=== PATIENT | male | born 1960 | race Caucasian/White ===

== ENCOUNTER 2016-06-23 19:14 | Emergency (ER) | payer BC ==
--- NOTE | 2016-06-23 21:35 | ED ---
Simeon Couch Benjamin, scribed for Benjamin Mata MD on 06/23/16 at 2116 . Complex/Multi-Sys Presentation - HPI Summary HPI Summary: 56yo male c/o bloated stomach and reports having some diarrhea. Pt states that he has gastritis. Also reports WHEELER and sinus congestion. - History Of Current Complaint Chief Complaint: EDGeneral Time Seen by Provider: 06/23/16 21:10 Hx Obtained From: Patient Onset/Duration: Sudden Onset, Lasting Hours, Still Present Timing: Constant Severity Currently: Mild Severity Initially: Mild Associated Signs And Symptoms: Positive: Headache, Diarrhea, Other - bloated stomach - Allergies/Home Medications Allergies/Adverse Reactions: Allergies Allergy/AdvReac Type Severity Reaction Status Date / Time Hydromorphone [From Dilaudid] Allergy Severe Altered Verified 06/23/16 19:22 Mental Status Cephalexin [From Keflex] Allergy Intermediate Hives Verified 06/23/16 19:22 Erythromycin Allergy Intermediate Hives Verified 06/23/16 19:22 Penicillins Allergy Intermediate Hives Verified 06/23/16 19:22 Tetracyclines Allergy Intermediate Hives Verified 06/23/16 19:22 Sumatriptan [From Imitrex] Allergy Unknown Verified 06/23/16 19:22 Reaction Details PMH/Surg Hx/FS Hx/Imm Hx Endocrine/Hematology History: Reports: Hx Thyroid Disease Denies: Hx Anticoagulant Therapy, Hx Diabetes, Other Endocrine/Hematological Disorders Cardiovascular History: Reports: Hx Hypercholesterolemia, Hx Hypertension, Other Cardiovascular Problems/Disorders - ATRIAL FIB Denies: Hx Angina, Hx Coronary Artery Disease, Hx Myocardial Infarction, Hx Pacemaker/ICD, Hx Valvular Heart Disease Respiratory History: Reports: Hx Asthma - exercise induced, Other Respiratory Problems/Disorders - PN X 2 WINTER 2011 Denies: Hx Chronic Obstructive Pulmonary Disease (COPD) GI History: Reports: Hx Gastroesophageal Reflux Disease, Hx Hiatal Hernia Denies: Other GI Disorders History: Reports: Hx Kidney Stones Denies: Hx Renal Disease, Other Problems/Disorders Musculoskeletal History: Reports: Hx Arthritis, Other Musculoskeletal History - DJD Sensory History: Reports: Hx Contacts or Glasses Denies: Hx Hearing Aid, Other Sensory Impairments Opthamlomology History: Reports: Hx Contacts or Glasses Denies: Other Sensory Impairments Neurological History: Reports: Hx Headaches - "sinus headaches" Denies: Hx Dementia, Hx Seizures, Other Neuro Impairments/Disorders Psychiatric History: Denies: Hx Panic Disorder, Hx Substance Abuse, Other Psychiatric Issues/ Disorders - Surgical History Surgery Procedure, Year, and Place: INGUINAL HERNIA REPAIR A CHILD - Immunization History Date of Tetanus Vaccine: up to date Infectious Disease History: No Infectious Disease History: Reports: Hx Hepatitis, Hx Shingles Denies: Hx Clostridium Difficile, Hx Human Immunodeficiency Virus (HIV), Hx Tuberculosis, Traveled Outside the [place] in Last 30 Days - Family History Known Family History: Positive: Hypertension - Social History Occupation: Employed Full-time Alcohol Use: None Alcohol Amount: quit Substance Use Type: Reports: None Substance Use Comment - Amount & Last Used: quit Hx Tobacco Use: Yes Smoking Status (MU): Former Smoker Review of Systems Constitutional: Negative Eyes: Negative ENT: Negative Cardiovascular: Negative Respiratory: Negative Positive: Diarrhea, Other - bloated stomach. Negative: Abdominal Pain Genitourinary: Negative Musculoskeletal: Negative Skin: Negative Positive: Headache Psychological: Normal All Other Systems Reviewed And Are Negative: Yes Physical Exam Triage Information Reviewed: Yes Vital Signs On Initial Exam: Initial Vitals Temp Pulse Resp BP Pulse Ox 98.4 F 66 18 157/74 98 06/23/16 19:22 06/23/16 19:22 06/23/16 19:22 06/23/16 19:22 06/23/16 19:22 Vital Signs Reviewed: Yes Appearance: Positive: No Pain Distress, Obese Skin: Positive: Warm Head/Face: Positive: Normal Head/Face Inspection Eyes: Positive: MARTHA ENT: Positive: Hearing grossly normal Neck: Positive: Supple Respiratory/Lung Sounds: Positive: Clear to Auscultation, Breath Sounds Present Cardiovascular: Positive: RRR Abdomen Description: Positive: Nontender, No Organomegaly, Soft Bowel Sounds: Positive: Present Musculoskeletal: Positive: Strength/ROM Intact Neurological: Positive: Alert, Oriented to Person Place, Time Diagnostics - Vital Signs Vital Signs Temp Pulse Resp BP Pulse Ox 06/23/16 19:22 98.4 F 66 18 157/74 98 - Laboratory Result Diagrams: 06/23/16 22:15 06/23/16 22:15 Lab Statement: Any lab studies that have been ordered have been reviewed, and results considered in the medical decision making process. Re-Evaluation - Re-Evaluation First Eval Change: Improved Complex Multi-Symp Course/Dx - Diagnoses Provider Diagnoses: GERD (gastroesophageal reflux disease), Abdominal pain Discharge - Discharge Plan Condition: Stable Disposition: HOME Patient Education Materials: Gastroesophageal Reflux Disease (ED), Abdominal Pain (ED) Forms: *Work Release Referrals: Akin Kang MD [Primary Care Provider] - The documentation as recorded by the Simeon hobbs Benjamin accurately reflects the service I personally performed and the decisions made by me, Benjamin Mata MD.
[2016-06-23 22:27] LABS: Hematocrit 46 % (42-52); Hemoglobin 15.2 g/dl (14.0-18.0); Mean Corpuscular HGB Conc 33 g/dl (31-36); Mean Corpuscular Hemoglobin 29 pg (27-31); Mean Corpuscular Volume 88 fL (80-94); Mean Platelet Volume 7 um3 (7.4-10.4); Red Blood Count 5.26 10^6/ul (4.0-5.4); Red Cell Distribution Width 14 % (10.5-15); White Blood Count 8.4 10^3/ul (3.5-10.8)
[2016-06-23 22:39] LABS: Albumin 4.3 g/dL (3.2-5.2); BUN/Creatinine Ratio 11.4 (8-20); Calcium 9.6 mg/dL (8.6-10.3); EGFR African American 93.3 (>60); EGFR Non-African American 72.5 (>60); Globulin 2.7 g/dL (2-4); Potassium 4.1 mmol/L (3.5-5.0); Total Bilirubin 0.7 mg/dL (0.2-1.0)
[2016-06-23] MEDS ORDERED: Al Hydrox/Mg Hydrox/Simet LIQ* 30 ML UDC PO ONE (23:11)
[2016-06-23] MEDS ORDERED: Lidocaine 2% VISCOUS* 15 ML UDC PO ONE (23:11)
[2016-06-24 00:09] VITALS: BP 145/76
== END 2016-06-24 00:04 | disposition home or self-care (01) ==
LOC: ED 19:14
DX: K21.9 Gastro-esophageal reflux disease without esophagitis (principal); R10.9 Unspecified abdominal pain
CPT/HCPCS: 36415; 80053; 83690; 85025; 99282; A9270-GY

== ENCOUNTER 2016-06-26 03:13 | Emergency (ER) | payer BC ==
[2016-06-26 04:05] LABS: Albumin 4.3 g/dL (3.2-5.2); BUN/Creatinine Ratio 9.5 (8-20); Calcium 9.6 mg/dL (8.6-10.3); EGFR African American 93.3 (>60); EGFR Non-African American 72.5 (>60); Globulin 2.7 g/dL (2-4); Hematocrit 44 % (42-52); Hemoglobin 14.9 g/dl (14.0-18.0); Magnesium 1.8 mg/dL (1.9-2.7); Mean Corpuscular HGB Conc 34 g/dl (31-36); Mean Corpuscular Hemoglobin 29 pg (27-31); Mean Corpuscular Volume 87 fL (80-94); Mean Platelet Volume 7 um3 (7.4-10.4); Potassium 3.4 mmol/L (3.5-5.0); Red Blood Count 5.08 10^6/ul (4.0-5.4); Red Cell Distribution Width 14 % (10.5-15); Total Bilirubin 0.6 mg/dL (0.2-1.0); White Blood Count 9.7 10^3/ul (3.5-10.8)
--- NOTE | 2016-06-26 04:43 | ED ---
Avila Couch Salem, scribed for Benjamin Mata MD on 06/26/16 at 0346 . Palpitations / Dysrhythmia - HPI Summary HPI Summary: Patient is a 56 y/o male who presents to the ED with palpitations since a few days. He reports presenting to the ED because palpitations were more frequent ( 9 to 10 times) today. He describes them as intermittent, lasting seconds. Pt reports seeing Dr. Dozier today and he believes sx could be related to hiatal hernia. - History of Current Complaint Chief Complaint: EDDysrhythmPalp Time Seen by Provider: 06/26/16 03:36 Hx Obtained From: Patient Onset/Duration: Gradual Onset, Lasting Days Severity Initially: Moderate Severity Currently: Moderate Aggravating: Nothing Alleviating: Nothing - Allergy/Home Medications Allergies/Adverse Reactions: Allergies Allergy/AdvReac Type Severity Reaction Status Date / Time Hydromorphone [From Dilaudid] Allergy Severe Altered Verified 06/26/16 04:01 Mental Status Cephalexin [From Keflex] Allergy Intermediate Hives Verified 06/26/16 04:01 Erythromycin Allergy Intermediate Hives Verified 06/26/16 04:01 Penicillins Allergy Intermediate Hives Verified 06/26/16 04:01 Tetracyclines Allergy Intermediate Hives Verified 06/26/16 04:01 Sumatriptan [From Imitrex] Allergy Unknown Verified 06/26/16 04:01 Reaction Details PMH/Surg Hx/FS Hx/Imm Hx Endocrine/Hematology History: Reports: Hx Thyroid Disease Denies: Hx Anticoagulant Therapy, Hx Diabetes, Other Endocrine/Hematological Disorders Cardiovascular History: Reports: Hx Hypercholesterolemia, Hx Hypertension, Other Cardiovascular Problems/Disorders - ATRIAL FIB Denies: Hx Angina, Hx Coronary Artery Disease, Hx Myocardial Infarction, Hx Pacemaker/ICD, Hx Valvular Heart Disease Respiratory History: Reports: Hx Asthma - exercise induced, Other Respiratory Problems/Disorders - PN X 2 WINTER 2011 Denies: Hx Chronic Obstructive Pulmonary Disease (COPD) GI History: Reports: Hx Gastroesophageal Reflux Disease, Hx Hiatal Hernia Denies: Other GI Disorders History: Reports: Hx Kidney Stones Denies: Hx Renal Disease, Other Problems/Disorders Musculoskeletal History: Reports: Hx Arthritis, Other Musculoskeletal History - DJD Sensory History: Reports: Hx Contacts or Glasses Denies: Hx Hearing Aid, Other Sensory Impairments Opthamlomology History: Reports: Hx Contacts or Glasses Denies: Other Sensory Impairments Neurological History: Reports: Hx Headaches - "sinus headaches" Denies: Hx Dementia, Hx Seizures, Other Neuro Impairments/Disorders Psychiatric History: Denies: Hx Panic Disorder, Hx Substance Abuse, Other Psychiatric Issues/ Disorders - Surgical History Surgery Procedure, Year, and Place: INGUINAL HERNIA REPAIR A CHILD - Immunization History Date of Tetanus Vaccine: up to date Date of Influenza Vaccine: utd Infectious Disease History: No Infectious Disease History: Reports: Hx Hepatitis, Hx Shingles Denies: Hx Clostridium Difficile, Hx Human Immunodeficiency Virus (HIV), Hx Tuberculosis, Traveled Outside the [place] in Last 30 Days - Family History Known Family History: Positive: Hypertension - Social History Alcohol Use: None Alcohol Amount: quit 86 Substance Use Type: Reports: None Substance Use Comment - Amount & Last Used: quit Hx Tobacco Use: Yes Smoking Status (MU): Former Smoker Review of Systems Negative: Fever Positive: Palpitations All Other Systems Reviewed And Are Negative: Yes Physical Exam Triage Information Reviewed: Yes Vital Signs On Initial Exam: Initial Vitals Temp Pulse Resp BP Pulse Ox 99.2 F 61 16 175/77 98 06/26/16 03:22 06/26/16 03:22 06/26/16 03:22 06/26/16 03:22 06/26/16 03:22 Vital Signs Reviewed: Yes Appearance: Positive: No Pain Distress, Obese Skin: Positive: Warm Head/Face: Positive: Normal Head/Face Inspection Eyes: Positive: MARTHA ENT: Positive: Hearing grossly normal Neck: Positive: Supple, Nontender Respiratory/Lung Sounds: Positive: Breath Sounds Present Cardiovascular: Positive: RRR Abdomen Description: Positive: Nontender, Soft Bowel Sounds: Positive: Present Musculoskeletal: Positive: Strength/ROM Intact Neurological: Positive: Sensory/Motor Intact, Alert, Oriented to Person Place, Time - [place] Coma Scale Coma Scale Total: 15 Diagnostics - Vital Signs Vital Signs Temp Pulse Resp BP Pulse Ox 06/26/16 03:22 99.2 F 61 16 175/77 98 - Laboratory Lab Results: Lab Results 06/26/16 06/26/16 Range/Units 03:35 03:35 WBC 9.7 (3.5-10.8) 10^3/ul RBC 5.08 (4.0-5.4) 10^6/ul Hgb 14.9 (14.0-18.0) g/dl Hct 44 (42-52) % MCV 87 (80-94) fL MCH 29 (27-31) pg MCHC 34 (31-36) g/dl RDW 14 (10.5-15) % Plt Count 206 (150-450) 10^3/ul MPV 7 L (7.4-10.4) um3 Neut % (Auto) 52.5 (38-83) % Lymph % (Auto) 37.3 (25-47) % [place] % (Auto) 8.3 (1-9) % Eos % (Auto) 1.4 (0-6) % Baso % (Auto) 0.5 (0-2) % Absolute Neuts (auto) 5.1 (1.5-7.7) 10^3/ul Absolute Lymphs (auto) 3.6 (1.0-4.8) 10^3/ul Absolute Monos (auto) 0.8 (0-0.8) 10^3/ul Absolute Eos (auto) 0.1 (0-0.6) 10^3/ul Absolute Basos (auto) 0.1 (0-0.2) 10^3/ul Absolute Nucleated RBC 0.01 10^3/ul Nucleated RBC % 0.1 Sodium 137 (133-145) mmol/L Potassium 3.4 L (3.5-5.0) mmol/L Chloride 102 (101-111) mmol/L Carbon Dioxide 25 (22-32) mmol/L Anion Gap 10 (2-11) mmol/L BUN 10 (6-24) mg/dL Creatinine 1.05 (0.67-1.17) mg/dL Est GFR ( Amer) 93.3 (>60) Est GFR (Non-Af Amer) 72.5 (>60) BUN/Creatinine Ratio 9.5 (8-20) Glucose 108 H (70-100) mg/dL Calcium 9.6 (8.6-10.3) mg/dL Magnesium 1.8 L (1.9-2.7) mg/dL Total Bilirubin 0.60 (0.2-1.0) mg/dL AST 25 (13-39) U/L ALT 32 (7-52) U/L Alkaline Phosphatase 46 (34-104) U/L Troponin I 0.00 (<0.04) ng/mL Total Protein 7.0 (6.4-8.9) g/dL Albumin 4.3 (3.2-5.2) g/dL Globulin 2.7 (2-4) g/dL Albumin/Globulin Ratio 1.6 (1-3) Result Diagrams: 06/26/16 03:35 06/26/16 03:35 Lab Statement: Any lab studies that have been ordered have been reviewed, and results considered in the medical decision making process. - EKG 0321 EKG Interpretation: Sinus rhythm @ 60 bpm. Re-Evaluation - Re-Evaluation First Eval Change: Improved - no significant ectopy noted Course/Dx - Diagnoses Provider Diagnoses: Palpitations Discharge - Discharge Plan Condition: Stable Disposition: HOME Patient Education Materials: Palpitations (ED) Referrals: Akin Kang MD [Primary Care Provider] - Rob Dozier MD [Medical Doctor] - Additional Instructions: Follow up with Dr. Dozier (Payroll Lead). The documentation as recorded by the Avila hobbs Salem accurately reflects the service I personally performed and the decisions made by , Benjamin Mata MD.
[2016-06-26 05:44] VITALS: BP 140/70
== END 2016-06-26 05:50 | disposition home or self-care (01) ==
LOC: ED 03:13
DX: R00.2 Palpitations (principal)
CPT/HCPCS: 36415; 80053; 83735; 84484; 85025; 93005; 99282

== ENCOUNTER 2016-07-21 13:40 | Emergency (ER) | payer BC ==
--- NOTE | 2016-07-21 15:28 | RAD ---
CLINICAL HISTORY: Left flank pain COMPARISON: June 04, 2013 TECHNIQUE: Multiple contiguous axial CT scans were obtained of the abdomen and pelvis, without intravenous contrast enhancement. Coronal and sagittal multiplanar reformations are submitted for review. Oral contrast was not administered. FINDINGS: The study is limited by the lack of intravenous contrast. This limits evaluation of the solid organs and vasculature. Evaluation is also technically limited secondary patient body habitus. LUNG BASES: The lung bases are clear. LIVER: The liver is diffusely low in attenuation compared to the spleen. There are no focal hepatic parenchymal masses. BILE DUCTS: There is no intrahepatic or extrahepatic biliary dilatation. GALLBLADDER: The gallbladder is normal, without pericholecystic inflammatory change. PANCREAS: The pancreas is normal, without mass or ductal dilatation. SPLEEN: Normal in size and appearance. UPPER GI TRACT: Evaluation of the gastrointestinal tract is limited by incomplete gastric distention. The upper GI tract is unremarkable. SMALL BOWEL AND MESENTERY: The small bowel is normal in contour, course, and caliber. There is no obstruction or dilatation. COLON: There is scattered diverticula of the descending colon. There is no appreciable pericolonic inflammatory change ADRENALS: Normal bilaterally. KIDNEYS: The kidneys are normal in shape, size, contour, and axis. There is no hydronephrosis or nephrolithiasis. BLADDER: The bladder is smooth in contour. PELVIC ORGANS: The prostate gland is normal. The seminal vesicles are symmetric. AORTA: The aorta is normal. IVC: Unremarkable LYMPH NODES: There is no lymphadenopathy by size criteria. ABDOMINAL WALL: There is no evidence for abdominal wall hernia. BONES AND SOFT TISSUES: There are mild diffuse degenerative changes. OTHER: None IMPRESSION: NO HYDRONEPHROSIS OR NEPHROLITHIASIS. SCATTERED DIVERTICULA OF THE DISTAL COLON. FATTY LIVER
[2016-07-21 15:57] LABS: Hematocrit 45 % (42-52); Hemoglobin 14.8 g/dl (14.0-18.0); Mean Corpuscular HGB Conc 33 g/dl (31-36); Mean Corpuscular Hemoglobin 29 pg (27-31); Mean Corpuscular Volume 88 fL (80-94); Mean Platelet Volume 7 um3 (7.4-10.4); Red Blood Count 5.13 10^6/ul (4.0-5.4); Red Cell Distribution Width 14 % (10.5-15); White Blood Count 7.3 10^3/ul (3.5-10.8)
[2016-07-21 16:15] LABS: Albumin 4.3 g/dL (3.2-5.2); C Reactive Protein 1.79 mg/L (< 5.00); Calcium 9.6 mg/dL (8.6-10.3); EGFR African American 98.7 (>60); EGFR Non-African American 76.7 (>60); Globulin 2.5 g/dL (2-4); Potassium 4.4 mmol/L (3.5-5.0); Total Bilirubin 0.7 mg/dL (0.2-1.0); Total Protein 6.8 g/dL (6.4-8.9)
[2016-07-21 17:24] LABS: Urine Bilirubin Negative (Negative); Urine Glucose Negative (Negative); Urine Nitrite Negative (Negative)
[2016-07-21 18:06] VITALS: BP 121/51
--- NOTE | 2016-07-21 19:44 | ED ---
Familia Couch Matthew, scribed for Lucio Church MD on 07/21/16 at 1437 . Abdominal Pain/Male - HPI Summary HPI Summary: A 56 y/o male presents to the ED with intermittent lower left sided abdominal pain since a couple of weeks ago. He states that he had a stomach virus a couple of weeks ago and hasn't felt right since that time. The pain started as cramping and has developed into a dull/ache/pressure. Associated symptoms include fatigue, frequently changing stools from diarrhea to constipation, abdominal bloating, and nausea. The patient denies vomiting. He has been eating , but did not eat today. The patient has not recently taken Abx. The patient received prednisone in March for a CT, because of a possible reaction to contrast dye. No Hx of diverticulosis. - History of Current Complaint Chief Complaint: EDAbdPain Stated Complaint: ABD PAIN Time Seen by Provider: 07/21/16 14:10 Hx Obtained From: Patient Onset/Duration: Gradual Onset, Lasting Weeks, Still Present Timing: Intermittent Severity Currently: Moderate Pain Intensity: 7 Pain Scale Used: 0-10 Numeric Location: Diffuse - lower abdominal Radiates: No Character: Dull, Cramping, Other: - aching Associated Signs And Symptoms: Positive: Constipation, Decreased Appetite - today only, Nausea, Diarrhea, Other - Fatigue. Negative: Vomiting - Allergies/Home Medications Allergies/Adverse Reactions: Allergies Allergy/AdvReac Type Severity Reaction Status Date / Time Hydromorphone [From Dilaudid] Allergy Severe Altered Verified 06/26/16 04:01 Mental Status Cephalexin [From Keflex] Allergy Intermediate Hives Verified 06/26/16 04:01 Erythromycin Allergy Intermediate Hives Verified 06/26/16 04:01 Penicillins Allergy Intermediate Hives Verified 06/26/16 04:01 Tetracyclines Allergy Intermediate Hives Verified 06/26/16 04:01 Sumatriptan [From Imitrex] Allergy Unknown Verified 06/26/16 04:01 Reaction Details Home Medications: Home Medications Epleronone (NF) [Inspra (NF)] 50 mg PO DAILY 07/21/16 [History Confirmed ] Levothyroxine TAB* [Synthroid TAB*] 200 mcg PO DAILY 07/21/16 [History Confirmed 07/21/16] Metoprolol Succinate XL TAB* [Toprol XL TAB*] 25 mg PO DAILY 07/21/16 [History Confirmed 07/21/16] Terbinafine HCl [Lamisil] 250 mg PO DAILY 07/21/16 [History Confirmed 07/21/16] amLODIPine TAB* [Norvasc 5 mg TAB*] 2.5 mg PO DAILY 07/21/16 [History Confirmed 07/21/16] PMH/Surg Hx/FS Hx/Imm Hx Endocrine/Hematology History: Reports: Hx Thyroid Disease Denies: Hx Anticoagulant Therapy, Hx Diabetes, Other Endocrine/Hematological Disorders Cardiovascular History: Reports: Hx Hypercholesterolemia, Hx Hypertension, Other Cardiovascular Problems/Disorders - ATRIAL FIB Denies: Hx Angina, Hx Coronary Artery Disease, Hx Myocardial Infarction, Hx Pacemaker/ICD, Hx Valvular Heart Disease Respiratory History: Reports: Hx Asthma - exercise induced, Other Respiratory Problems/Disorders - PN X 2 WINTER 2011 Denies: Hx Chronic Obstructive Pulmonary Disease (COPD) GI History: Reports: Hx Gastroesophageal Reflux Disease, Hx Hiatal Hernia Denies: Other GI Disorders History: Reports: Hx Kidney Stones Denies: Hx Renal Disease, Other Problems/Disorders Musculoskeletal History: Reports: Hx Arthritis, Other Musculoskeletal History - DJD Sensory History: Reports: Hx Contacts or Glasses Denies: Hx Hearing Aid, Other Sensory Impairments Opthamlomology History: Reports: Hx Contacts or Glasses Denies: Other Sensory Impairments Neurological History: Reports: Hx Headaches - "sinus headaches" Denies: Hx Dementia, Hx Seizures, Other Neuro Impairments/Disorders Psychiatric History: Denies: Hx Panic Disorder, Hx Substance Abuse, Other Psychiatric Issues/ Disorders - Surgical History Surgery Procedure, Year, and Place: INGUINAL HERNIA REPAIR A CHILD - Immunization History Date of Tetanus Vaccine: up to date Date of Influenza Vaccine: utd Infectious Disease History: Yes Infectious Disease History: Reports: Hx Hepatitis, Hx Shingles Denies: Hx Clostridium Difficile, Hx Human Immunodeficiency Virus (HIV), Hx Tuberculosis, Traveled Outside the [place] in Last 30 Days - Family History Known Family History: Positive: Hypertension - Social History Alcohol Use: None Alcohol Amount: quit Substance Use Type: Reports: None Substance Use Comment - Amount & Last Used: quit Hx Tobacco Use: Yes Smoking Status (MU): Former Smoker Review of Systems Positive: Fatigue, Other - decreased appetite only starting today Eyes: Negative ENT: Negative Cardiovascular: Negative Gastrointestinal: Other - constipation Positive: Abdominal Pain, Diarrhea, Nausea Genitourinary: Negative Musculoskeletal: Negative Skin: Negative Neurological: Negative Psychological: Normal All Other Systems Reviewed And Are Negative: Yes Physical Exam Triage Information Reviewed: Yes Vital Signs On Initial Exam: Initial Vitals Temp Pulse Resp BP Pulse Ox 97.8 F 66 18 165/71 99 07/21/16 13:41 07/21/16 13:41 07/21/16 13:41 07/21/16 13:41 07/21/16 13:41 Vital Signs Reviewed: Yes Appearance: Positive: Obese - morbidly Skin: Positive: Warm, Dry Head/Face: Positive: Normal Head/Face Inspection Eyes: Positive: EOMI, MARTHA ENT: Positive: Normal ENT inspection Neck: Positive: Supple, Nontender Respiratory/Lung Sounds: Positive: Clear to Auscultation, Breath Sounds Present Cardiovascular: Positive: RRR Abdomen Description: Positive: Nontender, Soft Bowel Sounds: Positive: Present Musculoskeletal: Positive: Normal Neurological: Positive: Alert, Oriented to Person Place, Time Psychiatric: Positive: Affect/Mood Appropriate Diagnostics - Vital Signs Vital Signs Temp Pulse Resp BP Pulse Ox 07/21/16 13:41 97.8 F 66 18 165/71 99 - Laboratory Lab Results: Lab Results 07/21/16 07/21/16 07/21/16 Range/Units 15:42 15:42 15:42 WBC 7.3 (3.5-10.8) 10^3/ul RBC 5.13 (4.0-5.4) 10^6/ul Hgb 14.8 (14.0-18.0) g/dl Hct 45 (42-52) % MCV 88 (80-94) fL MCH 29 (27-31) pg MCHC 33 (31-36) g/dl RDW 14 (10.5-15) % Plt Count 193 (150-450) 10^3/ul MPV 7 L (7.4-10.4) um3 Neut % (Auto) 65.2 (38-83) % Lymph % (Auto) 24.9 L (25-47) % [place] % (Auto) 7.7 (1-9) % Eos % (Auto) 1.1 (0-6) % Baso % (Auto) 1.1 (0-2) % Absolute Neuts (auto) 4.8 (1.5-7.7) 10^3/ul Absolute Lymphs (auto) 1.8 (1.0-4.8) 10^3/ul Absolute Monos (auto) 0.6 (0-0.8) 10^3/ul Absolute Eos (auto) 0.1 (0-0.6) 10^3/ul Absolute Basos (auto) 0.1 (0-0.2) 10^3/ul Absolute Nucleated RBC 0 10^3/ul Nucleated RBC % 0 Sodium 136 (133-145) mmol/L Potassium 4.4 (3.5-5.0) mmol/L Chloride 103 (101-111) mmol/L Carbon Dioxide 25 (22-32) mmol/L Anion Gap 8 (2-11) mmol/L BUN 9 (6-24) mg/dL Creatinine 1.00 (0.67-1.17) mg/dL Est GFR ( Amer) 98.7 (>60) Est GFR (Non-Af Amer) 76.7 (>60) BUN/Creatinine Ratio 9.0 (8-20) Glucose 114 H (70-100) mg/dL Lactic Acid 1.8 (0.5-2.0) mmol/L Calcium 9.6 (8.6-10.3) mg/dL Total Bilirubin 0.70 (0.2-1.0) mg/dL AST 31 (13-39) U/L ALT 39 (7-52) U/L Alkaline Phosphatase 45 (34-104) U/L C-Reactive Protein 1.79 (< 5.00) mg/L Total Protein 6.8 (6.4-8.9) g/dL Albumin 4.3 (3.2-5.2) g/dL Globulin 2.5 (2-4) g/dL Albumin/Globulin Ratio 1.7 (1-3) Lipase 30 (11.0-82.0) U/L Urine Color Urine Appearance Urine pH (5-9) Ur Specific [place] (1.010-1.030) Urine Protein (Negative) Urine Ketones (Negative) Urine Blood (Negative) Urine Nitrate (Negative) Urine Bilirubin (Negative) Urine Urobilinogen (Negative) Ur Leukocyte Esterase (Negative) Urine Glucose (Negative) 07/21/16 Range/Units 17:10 WBC (3.5-10.8) 10^3/ul RBC (4.0-5.4) 10^6/ul Hgb (14.0-18.0) g/dl Hct (42-52) % MCV (80-94) fL MCH (27-31) pg MCHC (31-36) g/dl RDW (10.5-15) % Plt Count (150-450) 10^3/ul MPV (7.4-10.4) um3 Neut % (Auto) (38-83) % Lymph % (Auto) (25-47) % [place] % (Auto) (1-9) % Eos % (Auto) (0-6) % Baso % (Auto) (0-2) % Absolute Neuts (auto) (1.5-7.7) 10^3/ul Absolute Lymphs (auto) (1.0-4.8) 10^3/ul Absolute Monos (auto) (0-0.8) 10^3/ul Absolute Eos (auto) (0-0.6) 10^3/ul Absolute Basos (auto) (0-0.2) 10^3/ul Absolute Nucleated RBC 10^3/ul Nucleated RBC % Sodium (133-145) mmol/L Potassium (3.5-5.0) mmol/L Chloride (101-111) mmol/L Carbon Dioxide (22-32) mmol/L Anion Gap (2-11) mmol/L BUN (6-24) mg/dL Creatinine (0.67-1.17) mg/dL Est GFR ( Amer) (>60) Est GFR (Non-Af Amer) (>60) BUN/Creatinine Ratio (8-20) Glucose (70-100) mg/dL Lactic Acid (0.5-2.0) mmol/L Calcium (8.6-10.3) mg/dL Total Bilirubin (0.2-1.0) mg/dL AST (13-39) U/L ALT (7-52) U/L Alkaline Phosphatase (34-104) U/L C-Reactive Protein (< 5.00) mg/L Total Protein (6.4-8.9) g/dL Albumin (3.2-5.2) g/dL Globulin (2-4) g/dL Albumin/Globulin Ratio (1-3) Lipase (11.0-82.0) U/L Urine Color Yellow Urine Appearance Clear Urine pH 6.0 (5-9) Ur Specific [place] 1.011 (1.010-1.030) Urine Protein Negative (Negative) Urine Ketones Negative (Negative) Urine Blood Negative (Negative) Urine Nitrate Negative (Negative) Urine Bilirubin Negative (Negative) Urine Urobilinogen Negative (Negative) Ur Leukocyte Esterase Negative (Negative) Urine Glucose Negative (Negative) Result Diagrams: 07/21/16 15:42 07/21/16 15:42 Lab Statement: Any lab studies that have been ordered have been reviewed, and results considered in the medical decision making process. - CT A/P CT CT Interpretation: Positive (See Comments) - IMPRESSION: NO HYDRONEPHROSIS OR NEPHROLITHIASIS. SCATTERED DIVERTICULA OF THE DISTAL COLON. FATTY LIVER CT Interpretation Completed By: Radiologist Abdominal Pain Fem Course/Dx - Course Course Of Treatment: Mr. Gomez was evaluated for possible diverticulitis which was negative as was the rest of his W/U. He was D/C'd with symptomatic treatment after rehydration. - Diagnoses Provider Diagnoses: Gastroenteritis Discharge - Discharge Plan Condition: Stable Disposition: HOME Patient Education Materials: Abdominal Pain (ED) Referrals: Akin Kang MD [Primary Care Provider] - Additional Instructions: FOLLOW UP WITH YOUR PRIMARY CARE PHYSICIAN. The documentation as recorded by the Familia hobbs Matthew accurately reflects the service I personally performed and the decisions made by , Lucio Church MD.
== END 2016-07-21 18:04 | disposition home or self-care (01) ==
LOC: ED 13:40
DX: K52.9 Noninfective gastroenteritis and colitis, unspecified (principal); R10.32 Left lower quadrant pain; R19.7 Diarrhea, unspecified; R53.83 Other fatigue
CPT/HCPCS: 36415; 74176; 80053; 81003; 83605; 83630; 83690; 85025; 86140; 87045; 87046; 87493; 87899; 99283

== ENCOUNTER 2016-11-15 02:21 | Emergency (ER) | payer BC ==
[2016-11-15] MEDS ORDERED: Ketorolac INJ* 60 MG/2 ML VIAL IM ONE (02:54)
--- NOTE | 2016-11-15 03:36 | ED ---
Ale Couch Edward, scribed for Benjamin Mata MD on 11/15/16 at 0226 . Upper Extremity Pain - HPI Summary HPI Summary: 56 y/o male presents to ED c/o L shoulder pain since the patient woke up yesterday. Per triage, the pt feels like he has a pinched nerve from his neck to his L shoulder blade. The pain is aggravated by lifting his L arm. Associated sx: numbness/tingling in L fingers. PMHx pinched nerves. - History of Current Complaint Stated Complaint: LEFT SHOULDER PAIN Hx Obtained From: Patient Onset/Duration: Started Days Ago - Yesterday when he woke up Timing: Lasting Days - 1 Pain Location: Shoulder Aggravating Factor(s): Lifting - L arm Associated Signs & Symptoms: Positive: Numbness/Tingling - L fingers - Allergies/Home Medications Allergies/Adverse Reactions: Allergies Allergy/AdvReac Type Severity Reaction Status Date / Time Hydromorphone [From Dilaudid] Allergy Severe Altered Verified 11/15/16 02:41 Mental Status Cephalexin [From Keflex] Allergy Intermediate Hives Verified 11/15/16 02:41 Erythromycin Allergy Intermediate Hives Verified 11/15/16 02:41 Penicillins Allergy Intermediate Hives Verified 11/15/16 02:41 Tetracyclines Allergy Intermediate Hives Verified 11/15/16 02:41 Sumatriptan [From Imitrex] Allergy Unknown Verified 11/15/16 02:41 Reaction Details Home Medications: Home Medications Cholecalciferol [Vitamin D] 2,000 unit PO DAILY 11/15/16 [History Confirmed ] PMH/Surg Hx/FS Hx/Imm Hx Previously Healthy: No Endocrine/Hematology History: Reports: Hx Thyroid Disease Denies: Hx Anticoagulant Therapy, Hx Diabetes, Other Endocrine/Hematological Disorders Cardiovascular History: Reports: Hx Hypercholesterolemia, Hx Hypertension, Other Cardiovascular Problems/Disorders - ATRIAL FIB Denies: Hx Angina, Hx Coronary Artery Disease, Hx Myocardial Infarction, Hx Pacemaker/ICD, Hx Valvular Heart Disease Respiratory History: Reports: Hx Asthma - exercise induced, Other Respiratory Problems/Disorders - PN X 2 WINTER 2011 Denies: Hx Chronic Obstructive Pulmonary Disease (COPD) GI History: Reports: Hx Gastroesophageal Reflux Disease, Hx Hiatal Hernia Denies: Other GI Disorders History: Reports: Hx Kidney Stones Denies: Hx Renal Disease, Other Problems/Disorders Musculoskeletal History: Reports: Hx Arthritis, Other Musculoskeletal History - DJD Sensory History: Reports: Hx Contacts or Glasses Denies: Hx Hearing Aid, Other Sensory Impairments Opthamlomology History: Reports: Hx Contacts or Glasses Denies: Other Sensory Impairments Neurological History: Reports: Hx Headaches - "sinus headaches" Denies: Hx Dementia, Hx Seizures, Other Neuro Impairments/Disorders Psychiatric History: Denies: Hx Panic Disorder, Hx Substance Abuse, Other Psychiatric Issues/ Disorders - Surgical History Surgery Procedure, Year, and Place: INGUINAL HERNIA REPAIR A CHILD - Immunization History Date of Tetanus Vaccine: up to date Date of Influenza Vaccine: utd Infectious Disease History: Reports: Hx Hepatitis, Hx Shingles Denies: Hx Clostridium Difficile, Hx Human Immunodeficiency Virus (HIV), Hx Tuberculosis - Family History Known Family History: Positive: Hypertension - Social History Alcohol Use: None Alcohol Amount: quit 86' Hx Substance Use: Yes Substance Use Type: Reports: None Substance Use Comment - Amount & Last Used: quit 86' Hx Tobacco Use: Yes Smoking Status (MU): Former Smoker Review of Systems Constitutional: Negative Eyes: Negative ENT: Negative Cardiovascular: Negative Respiratory: Negative Gastrointestinal: Negative Genitourinary: Negative Positive: Arthralgia - L shoulder pain, Other - Numbness/tingling in L fingers Skin: Negative Neurological: Negative Psychological: Normal All Other Systems Reviewed And Are Negative: Yes Physical Exam Triage Information Reviewed: Yes Vital Signs On Initial Exam: Initial Vitals Temp Pulse Resp BP Pulse Ox 98.1 F 65 18 169/75 97 11/15/16 02:26 11/15/16 02:26 11/15/16 02:26 11/15/16 02:26 11/15/16 02:26 Vital Signs Reviewed: Yes Appearance: Positive: Well-Appearing, Pain Distress - mild discomfort Skin: Positive: Warm Head/Face: Positive: Normal Head/Face Inspection Eyes: Positive: MARTHA ENT: Positive: Hearing grossly normal Neck: Positive: Supple Respiratory/Lung Sounds: Positive: Breath Sounds Present Cardiovascular: Positive: RRR Abdomen Description: Positive: Nontender, Soft Musculoskeletal: Positive: Other - mild lt trapezius tenderness, mild pain with elevation at shoulder Neurological: Positive: Alert, Oriented to Person Place, Time Psychiatric: Positive: Affect/Mood Appropriate Diagnostics - Vital Signs Vital Signs Temp Pulse Resp BP Pulse Ox 11/15/16 02:37 98.1 F 65 18 169/75 97 11/15/16 02:26 98.1 F 65 18 169/75 97 - Laboratory Lab Statement: Any lab studies that have been ordered have been reviewed, and results considered in the medical decision making process. Re-Evaluation - Re-Evaluation First Eval Change: Improved Course/Dx - Course Assessment/Plan: 56 y/o male presents to ED c/o L shoulder pain since the patient woke up yesterday. Per triage, the pt feels like he has a pinched nerve from his neck to his L shoulder blade. The pain is aggravated by lifting his L arm. Associated sx: numbness/tingling in L fingers. PMHx pinched nerves. D/C with muscle spasms. Given Flexeril and Motrin. - Diagnoses Provider Diagnoses: Muscle spasm Discharge - Discharge Plan Condition: Improved Disposition: HOME Prescriptions: Cyclobenzaprine TAB* [Flexeril 10 MG TAB*] 10 mg PO TID #20 tab Ibuprofen TAB* [Motrin TAB* 800 MG] 800 mg PO TID #30 tab Patient Education Materials: Muscle Spasm (ED) Forms: *Work Release Referrals: Akin Kang MD [Primary Care Provider] - 3 Days (Please follow-up in 2-3 days.) The documentation as recorded by the Ale hobbs Edward accurately reflects the service I personally performed and the decisions made by Esperanza caruso David, MD.
[2016-11-15 03:47] VITALS: BP 154/84
== END 2016-11-15 03:45 | disposition home or self-care (01) ==
LOC: ED 02:21
DX: M62.838 Other muscle spasm (principal); M25.512 Pain in left shoulder; E07.9 Disorder of thyroid, unspecified; I10 Essential (primary) hypertension; I48.91 Unspecified atrial fibrillation; E78.00 Pure hypercholesterolemia, unspecified; J45.990 Exercise induced bronchospasm; K21.9 Gastro-esophageal reflux disease without esophagitis; Z87.442 Personal history of urinary calculi; Z88.5 Allergy status to narcotic agent; Z88.1 Allergy status to other antibiotic agents; Z88.0 Allergy status to penicillin; Z87.891 Personal history of nicotine dependence
CPT/HCPCS: 99282; J1885

== ENCOUNTER 2017-02-06 21:25 | Emergency (ER) | payer BC ==
[2017-02-06] MEDS ORDERED: NS 0.9% 1000 ML* 1,000 ML IV ONE (23:00)
[2017-02-06 23:40] LABS: Hematocrit 45 % (42-52); Hemoglobin 15.4 g/dl (14.0-18.0); Mean Corpuscular HGB Conc 34 g/dl (31-36); Mean Corpuscular Hemoglobin 30 pg (27-31); Mean Corpuscular Volume 89 fL (80-94); Mean Platelet Volume 6 um3 (7.4-10.4); Red Blood Count 5.11 10^6/ul (4.0-5.4); Red Cell Distribution Width 14 % (10.5-15); White Blood Count 9.2 10^3/ul (3.5-10.8)
[2017-02-06 23:53] LABS: Albumin 4.4 g/dL (3.2-5.2); BUN/Creatinine Ratio 12.4 (8-20); C Reactive Protein 2.26 mg/L (< 5.00); Calcium 9.6 mg/dL (8.6-10.3); EGFR Non-African American 72.3 (>60); Globulin 2.8 g/dL (2-4); Magnesium 1.9 mg/dL (1.9-2.7); Potassium 4.4 mmol/L (3.5-5.0); Total Bilirubin 0.8 mg/dL (0.2-1.0); Total Protein 7.2 g/dL (6.4-8.9)
[2017-02-07 00:10] LABS: TSH (Thyroid Stimulating Horm) 1.7 mcIU/mL (0.34-5.60)
[2017-02-07 00:57] LABS: Urine Bilirubin Negative (Negative); Urine Glucose Negative (Negative); Urine Nitrite Negative (Negative)
[2017-02-07] MEDS ORDERED: Iohexol 350* (CONTRAST) 500 ML MDV IV ONE (01:20)
[2017-02-07 03:15] VITALS: BP 150/58
--- NOTE | 2017-02-07 04:00 | ED ---
Uri Couch Nikita, scribed for Sterling Montez MD on 02/06/17 at 2253 . Complex/Multi-Sys Presentation - HPI Summary HPI Summary: This patient is a 57 year old M presenting to ED with a chief complaint of increased fatigue since 1 month ago (started working overnights). The patient rates the pain 0/10 in severity. Symptoms aggravated by nothing. Symptoms alleviated by nothing. Patient reports exhaustion, intermittent palpitations in 50s (not unusual, coming off metoprolol), rash at R armpit, bloating, sinus congestion, decreased sleep, SOB (when congested), decreased appetite, dehydration, muscle pain, swelling in ankles when working, and loose stool. Patient denies ear pain, sore throat, rhinorrhea, neck pain, abdominal pain, nausea, bowel symptoms, urinary symptoms, depression, and anxiety. - History Of Current Complaint Chief Complaint: EDGeneral Time Seen by Provider: 02/06/17 22:37 Hx Obtained From: Patient Onset/Duration: Sudden Onset, Lasting Weeks - 1 month ago, Still Present Timing: Constant Severity Currently: None Aggravating Factor(s): nothing Alleviating Factor(s): nothing Associated Signs And Symptoms: Positive: Other - Patient reports exhaustion, intermittent palpitations in 50s (not unusual, coming off metoprolol), rash at R armpit, bloating, sinus congestion, decreased sleep, SOB (when congested), decreased appetite, dehydration, muscle pain, swelling in ankles when working, and loose stool. Patient denies ear pain, sore throat, rhinorrhea, neck pain, abdominal pain, nausea, bowel symptoms, urinary symptoms, depression, and anxiety. - Allergies/Home Medications Allergies/Adverse Reactions: Allergies Allergy/AdvReac Type Severity Reaction Status Date / Time Hydromorphone [From Dilaudid] Allergy Severe Altered Verified 11/15/16 02:41 Mental Status Cephalexin [From Keflex] Allergy Intermediate Hives Verified 11/15/16 02:41 Erythromycin Allergy Intermediate Hives Verified 11/15/16 02:41 Penicillins Allergy Intermediate Hives Verified 11/15/16 02:41 Tetracyclines Allergy Intermediate Hives Verified 11/15/16 02:41 Sumatriptan [From Imitrex] Allergy Unknown Verified 11/15/16 02:41 Reaction Details PMH/Surg Hx/FS Hx/Imm Hx Endocrine/Hematology History: Reports: Hx Thyroid Disease Denies: Hx Anticoagulant Therapy, Hx Diabetes, Other Endocrine/Hematological Disorders Cardiovascular History: Reports: Hx Hypercholesterolemia, Hx Hypertension, Other Cardiovascular Problems/Disorders - ATRIAL FIB Denies: Hx Angina, Hx Coronary Artery Disease, Hx Myocardial Infarction, Hx Pacemaker/ICD, Hx Valvular Heart Disease Respiratory History: Reports: Hx Asthma - exercise induced, Other Respiratory Problems/Disorders - PN X 2 WINTER 2011 Denies: Hx Chronic Obstructive Pulmonary Disease (COPD) GI History: Reports: Hx Gastroesophageal Reflux Disease, Hx Hiatal Hernia Denies: Other GI Disorders History: Reports: Hx Kidney Stones Denies: Hx Renal Disease, Other Problems/Disorders Musculoskeletal History: Reports: Hx Arthritis, Other Musculoskeletal History - DJD Sensory History: Reports: Hx Contacts or Glasses Denies: Hx Hearing Aid, Other Sensory Impairments Opthamlomology History: Reports: Hx Contacts or Glasses Denies: Other Sensory Impairments Neurological History: Reports: Hx Headaches - "sinus headaches" Denies: Hx Dementia, Hx Seizures, Other Neuro Impairments/Disorders Psychiatric History: Denies: Hx Panic Disorder, Hx Substance Abuse, Other Psychiatric Issues/ Disorders - Surgical History Surgery Procedure, Year, and Place: INGUINAL HERNIA REPAIR A CHILD - Immunization History Date of Tetanus Vaccine: up to date Date of Influenza Vaccine: utd Infectious Disease History: No Infectious Disease History: Reports: Hx Hepatitis, Hx Shingles Denies: Hx Clostridium Difficile, Hx Human Immunodeficiency Virus (HIV), Hx Tuberculosis, Traveled Outside the [place] in Last 30 Days - Family History Known Family History: Positive: Hypertension - Social History Alcohol Use: None Alcohol Amount: quit ' Hx Substance Use: Yes Substance Use Type: Reports: None Substance Use Comment - Amount & Last Used: quit 84 Hx Tobacco Use: Yes Smoking Status (MU): Former Smoker Review of Systems Positive: Fatigue Positive: Other - sinus congestion, dehydration; denies ear pain, rhinorrhea. Negative: Sore Throat Positive: Palpitations - intermittent Positive: Shortness Of Breath Positive: Other - bloating, decreased appetite, loose stool; denies bowel symptoms. Negative: Abdominal Pain, Nausea Positive: no symptoms reported Positive: Other - muscle pain, swelling in ankles when working; denies neck pain Positive: Rash - R armpit Neurological: Other - decreased sleep Negative: Anxious, Depressed All Other Systems Reviewed And Are Negative: Yes Physical Exam Triage Information Reviewed: Yes Vital Signs On Initial Exam: Initial Vitals Temp Pulse Resp BP Pulse Ox 98 F 67 20 159/82 96 02/06/17 21:28 02/06/17 21:28 02/06/17 21:28 02/06/17 21:28 02/06/17 21:28 Vital Signs Reviewed: Yes Appearance: Positive: Well-Appearing, No Pain Distress Skin: Positive: Warm, Dry, Other - 2.5 cm by 1.5 cm erythematous rash on right axilla Head/Face: Positive: Normal Head/Face Inspection Eyes: Positive: EOMI, MARTHA ENT: Positive: Normal ENT inspection Neck: Positive: Supple, Nontender Respiratory/Lung Sounds: Positive: Clear to Auscultation, Breath Sounds Present Cardiovascular: Positive: RRR Abdomen Description: Positive: Nontender, Soft Bowel Sounds: Positive: Present Musculoskeletal: Positive: Normal, Strength/ROM Intact Neurological: Positive: Normal, Sensory/Motor Intact, Alert, Oriented to Person Place, Time, CN Intact II-III Psychiatric: Positive: Affect/Mood Appropriate - Nicol Coma Scale Coma Scale Total: 15 Diagnostics - Vital Signs Vital Signs Temp Pulse Resp BP Pulse Ox 02/06/17 21:38 65 14 138/63 98 02/06/17 21:36 11 02/06/17 21:28 98 F 67 20 159/82 96 - Laboratory Lab Results: Lab Results 02/06/17 02/06/17 02/06/17 Range/Units 23:30 23:30 23:30 WBC (3.5-10.8) 10^3/ul RBC (4.0-5.4) 10^6/ul Hgb (14.0-18.0) g/dl Hct (42-52) % MCV (80-94) fL MCH (27-31) pg MCHC (31-36) g/dl RDW (10.5-15) % Plt Count (150-450) 10^3/ul MPV (7.4-10.4) um3 Neut % (Auto) (38-83) % Lymph % (Auto) (25-47) % [place] % (Auto) (1-9) % Eos % (Auto) (0-6) % Baso % (Auto) (0-2) % Absolute Neuts (auto) (1.5-7.7) 10^3/ul Absolute Lymphs (auto) (1.0-4.8) 10^3/ul Absolute Monos (auto) (0-0.8) 10^3/ul Absolute Eos (auto) (0-0.6) 10^3/ul Absolute Basos (auto) (0-0.2) 10^3/ul Absolute Nucleated RBC 10^3/ul Nucleated RBC % INR (Anticoag Therapy) 0.94 (0.89-1.11) APTT 33.6 (26.0-36.3) seconds Sodium 139 (133-145) mmol/L Potassium 4.4 (3.5-5.0) mmol/L Chloride 104 (101-111) mmol/L Carbon Dioxide 27 (22-32) mmol/L Anion Gap 8 (2-11) mmol/L BUN 13 (6-24) mg/dL Creatinine 1.05 (0.67-1.17) mg/dL Est GFR ( Amer) 93.0 (>60) Est GFR (Non-Af Amer) 72.3 (>60) BUN/Creatinine Ratio 12.4 (8-20) Glucose 105 H (70-100) mg/dL Lactic Acid (0.5-2.0) mmol/L Calcium 9.6 (8.6-10.3) mg/dL Magnesium 1.9 (1.9-2.7) mg/dL Total Bilirubin 0.80 (0.2-1.0) mg/dL AST 35 (13-39) U/L ALT 39 (7-52) U/L Alkaline Phosphatase 44 (34-104) U/L Total Creatine Kinase 113 (10-223) U/L CK-MB (CK-2) 2.3 (0.6-6.3) ng/mL Troponin I 0.00 (<0.04) ng/mL C-Reactive Protein 2.26 (< 5.00) mg/L B-Natriuretic Peptide 22 ( - 100) pg/mL Total Protein 7.2 (6.4-8.9) g/dL Albumin 4.4 (3.2-5.2) g/dL Globulin 2.8 (2-4) g/dL Albumin/Globulin Ratio 1.6 (1-3) Lipase 32 (11.0-82.0) U/L TSH 1.70 (0.34-5.60) mcIU/mL Urine Color Urine Appearance Urine pH (5-9) Ur Specific [place] (1.010-1.030) Urine Protein (Negative) Urine Ketones (Negative) Urine Blood (Negative) Urine Nitrate (Negative) Urine Bilirubin (Negative) Urine Urobilinogen (Negative) Ur Leukocyte Esterase (Negative) Urine Glucose (Negative) 02/06/17 02/06/17 02/07/17 Range/Units 23:30 23:30 00:35 WBC 9.2 (3.5-10.8) 10^3/ul RBC 5.11 (4.0-5.4) 10^6/ul Hgb 15.4 (14.0-18.0) g/dl Hct 45 (42-52) % MCV 89 (80-94) fL MCH 30 (27-31) pg MCHC 34 (31-36) g/dl RDW 14 (10.5-15) % Plt Count 209 (150-450) 10^3/ul MPV 6 L (7.4-10.4) um3 Neut % (Auto) 72.6 (38-83) % Lymph % (Auto) 19.3 L (25-47) % [place] % (Auto) 6.5 (1-9) % Eos % (Auto) 1.1 (0-6) % Baso % (Auto) 0.5 (0-2) % Absolute Neuts (auto) 6.7 (1.5-7.7) 10^3/ul Absolute Lymphs (auto) 1.8 (1.0-4.8) 10^3/ul Absolute Monos (auto) 0.6 (0-0.8) 10^3/ul Absolute Eos (auto) 0.1 (0-0.6) 10^3/ul Absolute Basos (auto) 0 (0-0.2) 10^3/ul Absolute Nucleated RBC 0 10^3/ul Nucleated RBC % 0 INR (Anticoag Therapy) (0.89-1.11) APTT (26.0-36.3) seconds Sodium (133-145) mmol/L Potassium (3.5-5.0) mmol/L Chloride (101-111) mmol/L Carbon Dioxide (22-32) mmol/L Anion Gap (2-11) mmol/L BUN (6-24) mg/dL Creatinine (0.67-1.17) mg/dL Est GFR ( Amer) (>60) Est GFR (Non-Af Amer) (>60) BUN/Creatinine Ratio (8-20) Glucose (70-100) mg/dL Lactic Acid 3.0 H* (0.5-2.0) mmol/L Calcium (8.6-10.3) mg/dL Magnesium (1.9-2.7) mg/dL Total Bilirubin (0.2-1.0) mg/dL AST (13-39) U/L ALT (7-52) U/L Alkaline Phosphatase (34-104) U/L Total Creatine Kinase (10-223) U/L CK-MB (CK-2) (0.6-6.3) ng/mL Troponin I (<0.04) ng/mL C-Reactive Protein (< 5.00) mg/L B-Natriuretic Peptide ( - 100) pg/mL Total Protein (6.4-8.9) g/dL Albumin (3.2-5.2) g/dL Globulin (2-4) g/dL Albumin/Globulin Ratio (1-3) Lipase (11.0-82.0) U/L TSH (0.34-5.60) mcIU/mL Urine Color Yellow Urine Appearance Clear Urine pH 7.0 (5-9) Ur Specific [place] 1.018 (1.010-1.030) Urine Protein Negative (Negative) Urine Ketones Negative (Negative) Urine Blood Negative (Negative) Urine Nitrate Negative (Negative) Urine Bilirubin Negative (Negative) Urine Urobilinogen Negative (Negative) Ur Leukocyte Esterase Negative (Negative) Urine Glucose Negative (Negative) Result Diagrams: 02/06/17 23:30 02/06/17 23:30 Lab Statement: Any lab studies that have been ordered have been reviewed, and results considered in the medical decision making process. - Radiology CXR Radiology Interpretation Completed By: ED Physician - Opacity along the right border of the aorta and heart of unknown significance. Otherwise insignificant. - CT Chest/Abd/Pel CT Interpretation Completed By: Radiologist - No acute findings. ED physician has reviewed this radiology report and agrees. - EKG 2332 Cardiac Rate: Bradycardia - 55 bpm EKG Rhythm: Sinus Bradycardia ST Segment: Normal Ectopy: None Re-Evaluation - Re-Evaluation First Eval Re-Evaluation Time: 00:40 Comment: Discussed with pt about results. Complex Multi-Symp Course/Dx Assessment/Plan: This patient is a 57 year old M presenting to ED with a chief complaint of increased fatigue since 1 month ago (started working overnights). The patient rates the pain 0/10 in severity. Symptoms aggravated by nothing. Symptoms alleviated by nothing. Patient reports exhaustion, intermittent palpitations in 50s (not unusual, coming off metoprolol), rash at R armpit, bloating, sinus congestion, decreased sleep, SOB (when congested), decreased appetite, dehydration, muscle pain, swelling in ankles when working, and loose stool. Patient denies ear pain, sore throat, rhinorrhea, neck pain, abdominal pain, nausea, bowel symptoms, urinary symptoms, depression, and anxiety. Chest/ Abd/Pel CT reveals no acute findings. ED physician has reviewed this radiology report and agrees. CXR reveals opacity along the right border of the aorta and heart of unknown significance. Otherwise insignificant. EKG reveals sinus bradycardia at 55 bpm, normal ST, and no ectopy. In the ED course, pt was given fluids. Medications reviewed. BP noted and advised to follow up with PCP. Allergies noted. RESULTS DISCUSSED WITH PATIENT. HE HAS F/U ON 02/08/[address] DOZIER, CARDIOLOGY. RX KETOCONAZOLE AND MUPIROCIN FOR RT AXILLARY RASH. F/ U PMD AND CARDIOLOGY; RETURN IF WORSE. - Diagnoses Provider Diagnoses: Weakness, Fatigue Discharge - Discharge Plan Condition: Stable Disposition: HOME Prescriptions: Ketoconazole 2 % CREAM (NF) [Nizoral 2% CREAM (NF)] 1 applic TOPICAL DAILY #1 tube Mupirocin 2% OINT* [Bactroban 2 % Oint*] 1 applic TOPICAL BID #1 tube Patient Education Materials: Acute Rash (ED), Weakness (ED) Referrals: Akin Kang MD [Primary Care Provider] - Rob Dozier MD [Medical Doctor] - Additional Instructions: FOLLOW UP WITH CARDIOLOGY, DR DOZIER, ON 02/08/17 SCHEDULED AND YOUR PRIMARY CARE DOCTOR. RETURN TO THE EMERGENCY DEPARTMENT FOR ANY WORSENING OF YOUR CONDITION OR QUESTIONS OR CONCERNS. The documentation as recorded by the Uri hobbs Nikita accurately reflects the service I personally performed and the decisions made by me, Sterling Montez MD.
--- NOTE | 2017-02-07 08:03 | RAD ---
INDICATION: Fatigue COMPARISON: Similar examination dated April 19, 2016 TECHNIQUE: Single AP portable view of the chest was obtained. FINDINGS: Image quality is compromised due to the relative inferiority of a portable chest x-ray. The heart and mediastinum exhibit normal size and contour. The lungs are grossly clear. There is no evidence of a large pleural effusion. Visualized bones are normal for the patient's age. IMPRESSION: No radiographic evidence for acute cardiopulmonary abnormality on this portable chest x-ray.
--- NOTE | 2017-02-07 08:36 | RAD ---
INDICATION: Palpitations and weakness. COMPARISON: CT abdomen pelvis dated July 21, 2016 TECHNIQUE: Multidetector CT images of the chest, abdomen and pelvis were obtained from the lung apices to the ischial tuberosities without intravenous contrast . CHEST: The lungs are clear. There are no large pleural effusions. There is no mediastinal or hilar lymphadenopathy. The heart and major vascular structures are grossly normal in appearance. ABDOMEN \T\ PELVIS: The liver is homogenously hypodense relative to the spleen. The spleen, pancreas and adrenal glands are grossly normal in appearance. The gallbladder is normal. The kidneys are normal in appearance without focal mass, calcification or signs of hydronephrosis. Evaluation of the gastrointestinal tract is limited without oral contrast. The appendix is either extremely diminutive (coronal image 65) or not visualized. Either way there are no acute inflammatory changes at the base of the cecum characteristic of acute appendicitis. The small and large bowel are not distended. There is no gross retroperitoneal or mesenteric lymphadenopathy. There is coarse atherosclerotic calcification of the prostate gland. There is a small left-sided fat-containing inguinal hernia. The thoracic and abdominal aorta is normal and size and morphology. Mild calcified atherosclerosis at the arch of the aorta and just above the bifurcation are noted. Multilevel degenerative changes of the thoracolumbar spine include loss of intervertebral disc height and anterior marginal osteophyte formation along much of the mid level and lower thoracic spine. IMPRESSION: 1. No pathologic aneurysmal dilatation of the aorta. 2. Homogenously hypoattenuating liver is most likely hepatic steatosis or another chronic infiltrative disease. 3. Additional chronic and degenerative changes described in the body the report.
== END 2017-02-07 04:15 | disposition home or self-care (01) ==
LOC: ED 21:25
DX: R53.1 Weakness (principal); R53.83 Other fatigue; R00.2 Palpitations; R21 Rash and other nonspecific skin eruption; R14.0 Abdominal distension (gaseous); R09.81 Nasal congestion; R06.02 Shortness of breath; E86.0 Dehydration; M79.1 Myalgia; R19.7 Diarrhea, unspecified; R60.0 Localized edema; E07.9 Disorder of thyroid, unspecified; I10 Essential (primary) hypertension; E78.00 Pure hypercholesterolemia, unspecified; I48.91 Unspecified atrial fibrillation; J45.990 Exercise induced bronchospasm; K21.9 Gastro-esophageal reflux disease without esophagitis; Z87.442 Personal history of urinary calculi; Z88.1 Allergy status to other antibiotic agents; Z88.5 Allergy status to narcotic agent; Z88.0 Allergy status to penicillin; Z87.891 Personal history of nicotine dependence
CPT/HCPCS: 36415; 71010; 71250; 74176; 80053; 81003; 82550; 82553; 83605; 83690; 83735; 83880; 84443; 84484; 85025; 85610; 85730; 86140; 93005; 96360; 96361; 99283

== ENCOUNTER 2017-02-20 01:13 | Emergency (ER) | payer BC ==
[2017-02-20] MEDS ORDERED: Ketorolac INJ* 60 MG/2 ML VIAL IM ONE (02:13)
--- NOTE | 2017-02-20 02:20 | ED ---
Throat Pain/Nasal Congestion - HPI Summary HPI Summary: 57M presents with dental pain at 23. he is seeing dentist on Tuesday for this. he is on clindamycin and oxy with tyenlol for his pain. He is here for pain relief. He denies any fever. He denies any chest pain or SOB. no trismus. states has abscess into jaw that they are going to manage on tuesday. he states swelling is getting better but pain is severe. - History of Current Complaint Chief Complaint: EDDentalPain Time Seen by Provider: 02/20/17 01:41 - Allergies/Home Medications Allergies/Adverse Reactions: Allergies Allergy/AdvReac Type Severity Reaction Status Date / Time Hydromorphone [From Dilaudid] Allergy Severe Altered Verified 11/15/16 02:41 Mental Status Cephalexin [From Keflex] Allergy Intermediate Hives Verified 11/15/16 02:41 Erythromycin Allergy Intermediate Hives Verified 11/15/16 02:41 Penicillins Allergy Intermediate Hives Verified 11/15/16 02:41 Tetracyclines Allergy Intermediate Hives Verified 11/15/16 02:41 Sumatriptan [From Imitrex] Allergy Unknown Verified 11/15/16 02:41 Reaction Details PMH/Surg Hx/FS Hx/Imm Hx Endocrine/Hematology History: Reports: Hx Thyroid Disease Denies: Hx Anticoagulant Therapy, Hx Diabetes, Other Endocrine/Hematological Disorders Cardiovascular History: Reports: Hx Hypercholesterolemia, Hx Hypertension, Other Cardiovascular Problems/Disorders - ATRIAL FIB Denies: Hx Angina, Hx Coronary Artery Disease, Hx Myocardial Infarction, Hx Pacemaker/ICD, Hx Valvular Heart Disease Respiratory History: Reports: Hx Asthma - exercise induced, Other Respiratory Problems/Disorders - PN X 2 WINTER 2011 Denies: Hx Chronic Obstructive Pulmonary Disease (COPD) GI History: Reports: Hx Gastroesophageal Reflux Disease, Hx Hiatal Hernia Denies: Other GI Disorders History: Reports: Hx Kidney Stones Denies: Hx Renal Disease, Other Problems/Disorders Musculoskeletal History: Reports: Hx Arthritis, Other Musculoskeletal History - DJD Sensory History: Reports: Hx Contacts or Glasses Denies: Hx Hearing Aid, Other Sensory Impairments Opthamlomology History: Reports: Hx Contacts or Glasses Denies: Other Sensory Impairments Neurological History: Reports: Hx Headaches - "sinus headaches" Denies: Hx Dementia, Hx Seizures, Other Neuro Impairments/Disorders Psychiatric History: Denies: Hx Panic Disorder, Hx Substance Abuse, Other Psychiatric Issues/ Disorders - Surgical History Surgery Procedure, Year, and Place: INGUINAL HERNIA REPAIR A CHILD - Immunization History Date of Tetanus Vaccine: up to date Date of Influenza Vaccine: utd Infectious Disease History: No Infectious Disease History: Reports: Hx Hepatitis, Hx Shingles Denies: Hx Clostridium Difficile, Hx Human Immunodeficiency Virus (HIV), Hx Tuberculosis, Traveled Outside the [place] in Last 30 Days - Family History Known Family History: Positive: Hypertension - Social History Alcohol Use: None Alcohol Amount: quit Hx Substance Use: Yes Substance Use Type: Reports: None Substance Use Comment - Amount & Last Used: quit 86 Hx Tobacco Use: Yes Smoking Status (MU): Former Smoker Review of Systems Negative: Fever Positive: Dental Pain Negative: Chest Pain Negative: Shortness Of Breath All Other Systems Reviewed And Are Negative: Yes Physical Exam Triage Information Reviewed: Yes Vital Signs On Initial Exam: Initial Vitals Temp Pulse Resp BP Pulse Ox 98.5 F 70 18 142/76 94 02/20/17 01:19 02/20/17 01:19 02/20/17 01:19 02/20/17 01:19 02/20/17 01:19 Vital Signs Reviewed: Yes Appearance: Positive: Pain Distress Skin: Positive: Warm, Dry Head/Face: Positive: Normal Head/Face Inspection Eyes: Positive: Normal, EOMI, MARTHA, Conjunctiva Clear ENT: Positive: Normal ENT inspection, Pharynx normal, TMs normal Dental: Positive: Percussion Tenderness @ - 25, Gross Decay/Caries @ - 25, Abscess @ - edema but no drainable abscess, Other - no submandibular tenderness. Negative: Dental Fracture @ Neck: Positive: Supple, Nontender, No Lymphadenopathy Respiratory/Lung Sounds: Positive: Clear to Auscultation, Breath Sounds Present Cardiovascular: Positive: Normal, RRR Abdomen Description: Positive: Nontender, Soft Bowel Sounds: Positive: Present Musculoskeletal: Positive: Normal Neurological: Positive: Normal Psychiatric: Positive: Normal Diagnostics - Vital Signs Vital Signs Temp Pulse Resp BP Pulse Ox 02/20/17 01:19 98.5 F 70 18 142/76 94 - Laboratory Lab Statement: Any lab studies that have been ordered have been reviewed, and results considered in the medical decision making process. EENT Course/Dx - Course Course Of Treatment: 57M presents with dental pain at 25. he is seeing dentist on Tuesday for this. he is on clindamycin and oxy with tyenlol for his pain. He is here for pain relief. He denies any fever. He denies any chest pain or SOB. no trismus. states has abscess into jaw that they are going to manage on tuesday. he states swelling is getting better but pain is severe. on exam has tenderness tooth 25 with no drainable abscess. no submandibular tenderness. will give dose of toradol. patient will take tyenlol with codeine more frequently. patient understand and agrees with plan. - Differential Diagnoses Differential Diagnoses: Dental Abscess, Dental Caries, Fractured Tooth - Diagnoses Provider Diagnoses: Dental abscess Discharge - Discharge Plan Condition: Good Disposition: HOME Patient Education Materials: Dental Abscess (ED) Referrals: Akin Kang MD [Primary Care Provider] - Additional Instructions: Can take up to two tablets every 6 hours for pain of normal medication Call dentist tomorrow with any worsening symptoms Return to ED if develop any new or worsening symptoms
[2017-02-20 03:19] VITALS: BP 136/76
== END 2017-02-20 02:40 | disposition home or self-care (01) ==
LOC: ED 01:13
DX: K04.7 Periapical abscess without sinus (principal); E07.9 Disorder of thyroid, unspecified; E78.00 Pure hypercholesterolemia, unspecified; I10 Essential (primary) hypertension; I48.91 Unspecified atrial fibrillation; J45.990 Exercise induced bronchospasm; K21.9 Gastro-esophageal reflux disease without esophagitis; Z87.442 Personal history of urinary calculi; Z88.1 Allergy status to other antibiotic agents; Z88.5 Allergy status to narcotic agent; Z88.0 Allergy status to penicillin; Z88.8 Allergy status to other drugs, medicaments and biological substances; Z87.891 Personal history of nicotine dependence
CPT/HCPCS: 96372; 99282; J1885

== ENCOUNTER 2017-03-09 21:18 | Emergency (ER) | payer SELFPAY ==
[2017-03-09 21:24] VITALS: BP 139/75
--- NOTE | 2017-03-09 21:34 | UC ---
Upper Extremity HPI - HPI Summary HPI Summary: Pt is a left handed male that presents with left wrist and distal arm pain after falling 2 days ago. [place] walking in the backyard, when he tripped over a stump and sustained FOOSH injury to left UE. Initially had pain and mild swelling. Pain became increasingly worse yesterday and today. Has not taken anything for the pain, but has been resting his arm. He denies numbness, tingling, LOC, hitting his head, or previous injury to the area. - History of Current Complaint Chief Complaint: UCUpperExtremity Stated Complaint: ARM INJURY Time Seen by Provider: 03/09/17 21:28 Hx Obtained From: Patient Onset/Duration: Sudden Onset Severity Initially: Moderate Severity Currently: Moderate Pain Intensity: 8 Pain Scale Used: 0-10 Numeric Character: Dull, Aching, Throbbing Aggravating Factor(s): Movement, Lifting, Flexion, Abduction Alleviating Factor(s): Rest Associated Signs And Symptoms: Positive: Swelling. Negative: Redness, Bruising , Numbness/Tingling - Allergies/Home Medications Allergies/Adverse Reactions: Allergies Allergy/AdvReac Type Severity Reaction Status Date / Time Hydromorphone [From Dilaudid] Allergy Severe Altered Verified 03/09/17 21:25 Mental Status Cephalexin [From Keflex] Allergy Intermediate Hives Verified 03/09/17 21:25 Erythromycin Allergy Intermediate Hives Verified 03/09/17 21:25 Penicillins Allergy Intermediate Hives Verified 03/09/17 21:25 Tetracyclines Allergy Intermediate Hives Verified 03/09/17 21:25 Sumatriptan [From Imitrex] Allergy Unknown Verified 03/09/17 21:25 Reaction Details PMH/Surg Hx/FS Hx/Imm Hx Cardiovascular History: Cardiac Disease, Hypertension Psychological History: Depression Other History Of: Negative For: Anticoagulant Therapy - Surgical History Surgical History: Yes Surgery Procedure, Year, and Place: INGUINAL HERNIA REPAIR A CHILD - Family History Known Family History: Positive: Hypertension - Social History Alcohol Use: None Alcohol Amount: quit Substance Use Type: None Substance Use Comment - Amount & Last Used: quit Smoking Status (MU): Former Smoker - Immunization History Most Recent Influenza Vaccination: 2012 Most Recent Tetanus Shot: 2011 Most Recent Pneumonia Vaccination: none Review of Systems Constitutional: Negative Skin: Negative Respiratory: Negative Cardiovascular: Negative Gastrointestinal: Negative Neurological: Negative Psychological: Negative All Other Systems Reviewed And Are Negative: Yes Physical Exam Triage Information Reviewed: Yes Appearance: Well-Appearing, Well-Nourished Vital Signs: Initial Vital Signs Temp 98.6 F 03/09/17 21:21 Pulse 72 03/09/17 21:21 Resp 12 03/09/17 21:21 BP 139/75 03/09/17 21:21 Pulse Ox 97 03/09/17 21:21 Vital Signs Reviewed: Yes Respiratory: Positive: Chest non-tender, Lungs clear, Normal breath sounds, No respiratory distress, No accessory muscle use Cardiovascular: Positive: RRR, No Murmur, Pulses Normal, Brisk Capillary Refill Musculoskeletal: Positive: No Edema, Strength Limited @ - Left wrist flexion 3/ 5 and extension 3/5., ROM Limited @ - Left wrist - pain with flexion and extension. Can make a fist, but with pain., Other: - TTP over LEFT distal radius , capitate, and lunate. Intact opposition. No snuffbox tenderness. No obvious bony deformities. Neurological: Positive: Alert, Other: - Sensations intact each left digit and C6 -T1. Psychological: Positive: Age Appropriate Behavior Skin: Negative: rashes, significant lesion(s) Upper Extremity Course/Dx - Course Course Of Treatment: Waited 31 minutes for radiology read...XR today negative on wet read performed by myself as films were not being read and it was unsure if films would be read in a timely manner this close to "closing time" (2200). Cock up splint. Pt was offered something stronger than tylenol for pain or time off work, but declined. Number provided for Ortho if symptoms worsens or persist >1w - Differential Dx/Diagnosis Differential Diagnosis/HQI/PQRI: Contusion, Fracture (Closed), Strain, Sprain Provider Diagnoses: Left wrist sprain Discharge - Discharge Plan Condition: Stable Disposition: HOME Patient Education Materials: Wrist Sprain (ED) Forms: *Work Release Referrals: Akin Kang MD [Primary Care Provider] - Stefania Hammond MD [Medical Doctor] - If Needed Additional Instructions: 1) Rest and Ice your wrist and arm 2) Tylenol OTC for pain 3) Wear the wrist brace for added support and protection, especially during the daytime when active. 4) If symptoms worsen, persist, or if you develop new symptoms - please follow up with orthopedics at the number below.
--- NOTE | 2017-03-09 22:10 | RAD ---
Indication: Distal radius and mid radius pain post fall 2 days ago. Comparison: No relevant prior exams available on the [facility] for comparison. Technique: AP and lateral views LEFT radius and ulna. REPORT AND IMPRESSION: Negative for fracture or malalignment. Mild nonfocal soft tissue swelling.
--- NOTE | 2017-03-09 22:13 | RAD ---
INDICATION: LEFT wrist and forearm pain post fall. COMPARISON: Forearm of the same date. TECHNIQUE: AP, lateral, and oblique views LEFT wrist. REPORT: Subtle cortical contour and trabecular irregularity at the triquetrum is suspicious for a potential nondisplaced triquetral fracture along the dorsal aspect. The carpal bones as well as the distal radius and ulna are otherwise unremarkable. Normal articular alignment. Mild nonfocal soft tissue swelling. IMPRESSION: Potential nondisplaced fracture along the dorsum of the triquetrum.
--- NOTE | 2017-03-10 14:42 | UC ---
Progress - Progress Note Progress Note: review of final read imaging from last night Pt with with possible nondisplaced carpal fracture Pt was placed in cock-up and referral to hand prn spoke with Brennan Amin RN - will contact pt and review result -miroslava 03/10/17 3550
== END 2017-03-09 22:08 | disposition home or self-care (01) ==
LOC: UCEAST 21:18
DX: S62.115A Nondisplaced fracture of triquetrum [cuneiform] bone, left wrist, initial encounter for closed fracture (principal); W01.0XXA Fall on same level from slipping, tripping and stumbling without subsequent striking against object, initial encounter; Y93.01 Activity, walking, marching and hiking; Y92.79 Other farm location as the place of occurrence of the external cause; Y99.9 Unspecified external cause status; Z87.891 Personal history of nicotine dependence
CPT/HCPCS: 99212; G0463

== ENCOUNTER 2017-03-18 18:55 | Emergency (ER) | payer SELFPAY ==
[2017-03-19 02:04] LABS: Hematocrit 42 % (42-52); Mean Corpuscular HGB Conc 33 g/dl (31-36); Mean Corpuscular Hemoglobin 30 pg (27-31); Mean Corpuscular Volume 88 fL (80-94); Mean Platelet Volume 7 um3 (7.4-10.4); Red Blood Count 4.74 10^6/ul (4.0-5.4); Red Cell Distribution Width 14 % (10.5-15)
[2017-03-19 02:22] LABS: Albumin 4.1 g/dL (3.2-5.2); BUN/Creatinine Ratio 12.6 (8-20); Calcium 9.5 mg/dL (8.6-10.3); EGFR African American 95.1 (>60); EGFR Non-African American 73.9 (>60); Globulin 2.7 g/dL (2-4); Potassium 3.9 mmol/L (3.5-5.0); Total Bilirubin 0.7 mg/dL (0.2-1.0); Total Protein 6.8 g/dL (6.4-8.9)
[2017-03-19] MEDS ORDERED: Acetaminophen TAB* 325 MG PO ONE (02:27)
[2017-03-19] MEDS ORDERED: Acetaminophen TAB* 325 MG ONE (02:28)
--- NOTE | 2017-03-19 03:55 | ED ---
Lauryn Couch SooYoung, scribed for Mary Smith MD on 03/19/17 at 0108 . Dizziness - HPI Summary HPI Summary: A 57 y/o M presents to ED with c/o episodes of losing his balance ongoing for past two weeks. He described episodes of "popping" in his head. He states these episodes last approx a few seconds but then it resolves. Associated sx: nausea, sinus congestions, ears plugged, dizziness. Pt is medication compliant. PCP is Dr. Dozier and Dr. Kang. - History Of Current Complaint Chief Complaint: EDDizziness Stated Complaint: POPPING IN HEAD,LOSS OF BALANCE Time Seen by Provider: 03/19/17 00:57 Hx Obtained From: Patient Onset/Duration: Still Present Timing: Intermittent Episode Lasting - seconds Severity Initially: Moderate Severity Currently: Moderate Associated Signs And Symptoms: Positive: Nausea, Unsteady Gait - loss of balance , Other: - sinus congestion, plugged ears, dizziness - Allergies/Home Medications Allergies/Adverse Reactions: Allergies Allergy/AdvReac Type Severity Reaction Status Date / Time Hydromorphone [From Dilaudid] Allergy Severe Altered Verified 03/09/17 21:25 Mental Status Cephalexin [From Keflex] Allergy Intermediate Hives Verified 03/09/17 21:25 Erythromycin Allergy Intermediate Hives Verified 03/09/17 21:25 Penicillins Allergy Intermediate Hives Verified 03/09/17 21:25 Tetracyclines Allergy Intermediate Hives Verified 03/09/17 21:25 Sumatriptan [From Imitrex] Allergy Unknown Verified 03/09/17 21:25 Reaction Details PMH/Surg Hx/FS Hx/Imm Hx Previously Healthy: No Endocrine/Hematology History: Reports: Hx Thyroid Disease Denies: Hx Anticoagulant Therapy, Hx Diabetes, Other Endocrine/Hematological Disorders Cardiovascular History: Reports: Hx Hypercholesterolemia, Hx Hypertension, Other Cardiovascular Problems/Disorders - ATRIAL FIB Denies: Hx Angina, Hx Coronary Artery Disease, Hx Myocardial Infarction, Hx Pacemaker/ICD, Hx Valvular Heart Disease Respiratory History: Reports: Hx Asthma - exercise induced, Other Respiratory Problems/Disorders - PN X 2 WINTER 2011 Denies: Hx Chronic Obstructive Pulmonary Disease (COPD) GI History: Reports: Hx Gastroesophageal Reflux Disease, Hx Hiatal Hernia Denies: Other GI Disorders History: Reports: Hx Kidney Stones Denies: Hx Renal Disease, Other Problems/Disorders Musculoskeletal History: Reports: Hx Arthritis, Other Musculoskeletal History - DJD Sensory History: Reports: Hx Contacts or Glasses Denies: Hx Hearing Aid, Other Sensory Impairments Opthamlomology History: Reports: Hx Contacts or Glasses Denies: Other Sensory Impairments Neurological History: Reports: Hx Headaches - "sinus headaches" Denies: Hx Dementia, Hx Seizures, Other Neuro Impairments/Disorders Psychiatric History: Denies: Hx Panic Disorder, Hx Substance Abuse, Other Psychiatric Issues/ Disorders - Surgical History Surgery Procedure, Year, and Place: INGUINAL HERNIA REPAIR A CHILD - Immunization History Date of Tetanus Vaccine: utd Date of Influenza Vaccine: 2015 Infectious Disease History: No Infectious Disease History: Reports: Hx Hepatitis, Hx Shingles Denies: Hx Clostridium Difficile, Hx Human Immunodeficiency Virus (HIV), Hx Tuberculosis, Traveled Outside the [place] in Last 30 Days - Family History Known Family History: Positive: Hypertension - Social History Occupation: Employed Part-time Lives: Alone Alcohol Use: None Alcohol Amount: quit 86' Hx Substance Use: Yes Substance Use Type: Reports: None Substance Use Comment - Amount & Last Used: quit Hx Tobacco Use: Yes Smoking Status (MU): Former Smoker Review of Systems Positive: Other - sinus congestion, ears plugged Positive: Nausea Neurological: Other - pos: dizziness, unsteady gait All Other Systems Reviewed And Are Negative: Yes Physical Exam - Summary Physical Exam Summary: VITAL SIGNS: Reviewed. GENERAL: Patient is a well-developed, obese MALE who is lying comfortable in the stretcher. Patient is not in any acute respiratory distress. HEAD AND FACE: No signs of trauma. No ecchymosis, hematomas or skull depressions. Pt has tenderness over his maxillary sinuses. EYES: PERRLA, EOMI x 2, no injected conjunctiva, no nystagmus. EARS: Hearing grossly intact. Ear canals and tympanic membranes are within normal limits. MOUTH: Oropharynx is within normal limits. NECK: Supple, trachea is midline, no adenopathy, no JVD, no carotid bruit, no c- spine tenderness, neck with full ROM. CHEST: Symmetric, no tenderness at palpation LUNGS: Clear to auscultation bilaterally. No wheezing or crackles. CVS: Regular rate and rhythm, S1 and S2 present, no murmurs or gallops appreciated. ABDOMEN: Soft, non-tender. No signs of distention. No rebound, no guarding, and no masses palpated. Bowel sounds are normal. EXTREMITIES: FROM in all major joints, no edema, no cyanosis, no clubbing. NEURO: Alert and oriented x 3. No acute neurological deficits. No dissymmetry. Speech is normal and follows commands. SKIN: Dry and warm Triage Information Reviewed: Yes Vital Signs On Initial Exam: Initial Vitals Temp Pulse Resp BP Pulse Ox 97.3 F 69 16 173/73 97 03/18/17 19:07 03/18/17 19:07 03/18/17 19:07 03/18/17 19:07 03/18/17 19:07 Vital Signs Reviewed: Yes - [place] Coma Scale Coma Scale Total: 15 Diagnostics - Vital Signs Vital Signs Temp Pulse Resp BP Pulse Ox 03/18/17 21:30 97.9 F 68 16 145/70 100 03/18/17 19:07 97.3 F 69 16 173/73 97 - Laboratory Result Diagrams: 03/19/17 01:40 03/19/17 01:40 Lab Statement: Any lab studies that have been ordered have been reviewed, and results considered in the medical decision making process. - CT HEAD CT Interpretation: No Acute Changes - IMPRESSION: Nml head. ED physician has reviewed this radiology report and agrees. CT Interpretation Completed By: Radiologist MAXILLOFACIAL CT Interpretation: Positive (See Comments) - IMPRESSION: No facial fx. ADDENDUM : Next small amount of fluid in the L anterior ethmoid sinus and minimal mucosal thickening in the L frontal sinus. Findings suggest minimal sinusitis. ED physician has reviewed this radiology report and agrees. CT Interpretation Completed By: Radiologist Dizzy Course/Dx - Course Course Of Treatment: A 57 y/o M presents to ED with c/o episodes of losing his balance ongoing for past two weeks. He described episodes of "popping" in his head. He states these episodes last approx a few seconds but then it resolves. Associated sx: nausea, sinus congestions, ears plugged, dizziness. Pt is medication compliant. PCP is Dr. Dozier and Dr. Kang. Pt given Tylenol in ED. Bloodwork is without significant abnormality. Head CT. Spoke with radiologist regarding Maxillofacial CT and radiology added the following addendum: "Next small amount of fluid in the L anterior ethmoid sinus and minimal mucosal thickening in the L frontal sinus. Findings suggest minimal sinusitis." - Diagnoses Provider Diagnoses: Vertigo Discharge - Discharge Plan Condition: Stable Disposition: HOME Prescriptions: Carbamide Peroxide 6.5% OTIC* [DEBROX 6.5% Otic*] 5 drop BOTH EARS BID #1 bottle Meclizine TAB* [Antivert 12.5 TAB*] 25 mg PO TID PRN #30 tab MDD 3 PRN Reason: Vertigo Patient Education Materials: Meclizine (By mouth), Carbamide Peroxide (Into the ear), Vertigo (ED) Referrals: Akin Kang MD [Primary Care Provider] - Additional Instructions: Please return to the ED if you experience new or worsening symptoms. The documentation as recorded by the Lauryn hobbs SooYoung accurately reflects the service I personally performed and the decisions made by me, Mary Smith MD.
[2017-03-19 04:06] VITALS: BP 163/83
--- NOTE | 2017-03-19 08:06 | RAD ---
INDICATION: Dizziness. COMPARISON: Comparison is made with prior CT of the brain from January 07, 2017. TECHNIQUE: Contiguous axial sections of the brain were obtained from the skull base to the vertex without contrast. FINDINGS: The ventricles, cisterns and sulci are within normal limits. There are small areas of decreased density in the subcortical and periventricular white matter suggestive of mild chronic small vessel ischemic changes. There is a small focal area of decreased attenuation present in the right external capsule which is unchanged suggestive of an old infarct. No other focal abnormalities or mass effect are seen. There is no evidence for hemorrhage. No significant focal osseous abnormality is seen. The visualized portion of the paranasal sinuses and mastoid air cells appear clear. IMPRESSION: 1. NO EVIDENCE FOR ACUTE INTRACRANIAL ABNORMALITY. 2. 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
--- NOTE | 2017-03-19 08:12 | RAD ---
INDICATION: Dizziness, sinusitis. COMPARISON: Comparison is made with a prior CT of the facial bones from October 09, 2011. TECHNIQUE: Contiguous axial sections of the axial images of the facial bones were obtained and reconstructed in the coronal and sagittal planes. FINDINGS: The amanda of the orbits and maxillary sinuses appear intact. The zygomatic arches appear intact. There is no evidence for a fracture of the mandible. The nasal bones appear intact. There is moderate deviation of the nasal septum toward the right side. The pterygoid plates appear intact. There is mild mucosal thickening within the inferior portion of the maxillary sinuses measuring 1-2 mm in thickness. There is also mild mucosal thickening within the ethmoid sinuses and frontal sinus on the left side. The sphenoid sinus appears clear. The ostiomeatal complexes appear patent. The visualized portion of the mastoid air cells appear clear. IMPRESSION: FINDINGS SUGGESTIVE OF MILD CHRONIC SINUSITIS NOTED.
== END 2017-03-19 04:05 | disposition home or self-care (01) ==
LOC: ED 18:55
DX: R42 Dizziness and giddiness (principal); R11.0 Nausea; Z87.891 Personal history of nicotine dependence
CPT/HCPCS: 36415; 70450; 70486; 80053; 85025; 99282; A9270-GY

== ENCOUNTER 2017-05-17 22:08 | Emergency (ER) | payer BC, MEDICAID ==
[2017-05-18] MEDS ORDERED: diPHENhydraMINE IV* 50 MG/ML 1 ml VIAL (BENADRYL) IV ONE (00:52)
[2017-05-18] MEDS ORDERED: NS 0.9% 1000 ML* 1,000 ML IV ONE (00:52)
[2017-05-18] MEDS ORDERED: Ketorolac INJ* 30 MG/ML 1 ML VIAL IV PUSH ONE (00:52)
[2017-05-18] MEDS ORDERED: Metoclopramide IV* 5 MG/ML 2 ML VIAL IV SLOW PU ONE (00:52)
[2017-05-18 04:11] VITALS: BP 132/76
--- NOTE | 2017-05-18 05:29 | ED ---
Gisselle Couch Julia, scribed for Mary Smith MD on 05/18/17 at 0251 . Headache - HPI Summary HPI Summary: This patient is a 57 year old M presenting to [facility] with a chief complaint of headache since 20:00 05/17/17. Patient reports nausea, wavy vision, changes in equilibrium, and neck pain. Patient denies focal weakness. The patient rates the pain 8/10 in severity. Symptoms aggravated by light. Symptoms alleviated by nothing. Patient has hx of migraines and vertigo. Patient had MRI 2 weeks ago at [place] and hos not heard results yet. - History Of Current Complaint Chief Complaint: EDHeadache Stated Complaint: HEADACHE/NAUSEA Time Seen by Provider: 05/18/17 00:41 Hx Obtained From: Patient Onset/Duration: Sudden Onset, Started hours ago Initially Headache Was: Initial Pain Scale(0-10)= - 6 Currently Pain Is: Current Pain Scale(0-10)= - 8 Timing: Constant Aggravating Factor: Bright Lights Allevating Factors: Nothing Associated Signs And Symptoms: Dizziness, Nausea, Neck Pain, Visual Changes Related History: Similar Episode/DX As: - migranes - Allergies/Home Medications Allergies/Adverse Reactions: Allergies Allergy/AdvReac Type Severity Reaction Status Date / Time Hydromorphone [From Dilaudid] Allergy Severe Altered Verified 03/09/17 21:25 Mental Status Cephalexin [From Keflex] Allergy Intermediate Hives Verified 03/09/17 21:25 Erythromycin Allergy Intermediate Hives Verified 03/09/17 21:25 Penicillins Allergy Intermediate Hives Verified 03/09/17 21:25 Tetracyclines Allergy Intermediate Hives Verified 03/09/17 21:25 Sumatriptan [From Imitrex] Allergy Unknown Verified 03/09/17 21:25 Reaction Details PMH/Surg Hx/FS Hx/Imm Hx Endocrine/Hematology History: Reports: Hx Thyroid Disease Denies: Hx Anticoagulant Therapy, Hx Diabetes, Other Endocrine/Hematological Disorders Cardiovascular History: Reports: Hx Hypercholesterolemia, Hx Hypertension, Other Cardiovascular Problems/Disorders - ATRIAL FIB Denies: Hx Angina, Hx Coronary Artery Disease, Hx Myocardial Infarction, Hx Pacemaker/ICD, Hx Valvular Heart Disease Respiratory History: Reports: Hx Asthma - exercise induced, Other Respiratory Problems/Disorders - PN X 2 WINTER 2011 Denies: Hx Chronic Obstructive Pulmonary Disease (COPD) GI History: Reports: Hx Gastroesophageal Reflux Disease, Hx Hiatal Hernia Denies: Other GI Disorders History: Reports: Hx Kidney Stones Denies: Hx Renal Disease, Other Problems/Disorders Musculoskeletal History: Reports: Hx Arthritis, Other Musculoskeletal History - DJD Sensory History: Reports: Hx Contacts or Glasses Denies: Hx Hearing Aid, Other Sensory Impairments Opthamlomology History: Reports: Hx Contacts or Glasses Denies: Other Sensory Impairments Neurological History: Reports: Hx Headaches - "sinus headaches", Hx Migraine Denies: Hx Dementia, Hx Seizures, Other Neuro Impairments/Disorders Psychiatric History: Denies: Hx Panic Disorder, Hx Substance Abuse, Other Psychiatric Issues/ Disorders - Surgical History Surgery Procedure, Year, and Place: INGUINAL HERNIA REPAIR A CHILD - Immunization History Date of Tetanus Vaccine: utd Date of Influenza Vaccine: 2015 Infectious Disease History: Yes Infectious Disease History: Reports: Hx Hepatitis, Hx Shingles Denies: Hx Clostridium Difficile, Hx Human Immunodeficiency Virus (HIV), Hx Tuberculosis, Traveled Outside the [place] in Last 30 Days - Family History Known Family History: Positive: Hypertension - Social History Alcohol Use: None Alcohol Amount: quit Hx Substance Use: Yes Substance Use Type: Reports: None Substance Use Comment - Amount & Last Used: quit Hx Tobacco Use: Yes Smoking Status (MU): Former Smoker Review of Systems Positive: Blurred Vision - "wavy" Positive: Nausea Positive: Other - neck pain Neurological: Other - change sin equilibrium Positive: Headache All Other Systems Reviewed And Are Negative: Yes Physical Exam Triage Information Reviewed: Yes Vital Signs On Initial Exam: Initial Vitals Temp Pulse Resp BP Pulse Ox 98.5 F 73 20 160/74 96 05/17/17 22:10 05/17/17 22:10 05/17/17 22:10 05/17/17 22:10 05/17/17 22:10 Vital Signs Reviewed: Yes Appearance: Positive: Obese - morbidly Skin: Positive: Skin Color Reflects Adequate Perfusion Head/Face: Positive: Normal Head/Face Inspection Eyes: Positive: Normal ENT: Positive: Normal ENT inspection Neck: Positive: Nontender Cardiovascular: Positive: Normal Abdomen Description: Positive: Nontender Musculoskeletal: Positive: Normal Neurological: Positive: Normal Psychiatric: Positive: Normal AVPU Assessment: Alert Diagnostics - Vital Signs Vital Signs Temp Pulse Resp BP Pulse Ox 05/17/17 23:55 98.3 F 63 20 140/71 94 05/17/17 22:10 98.5 F 73 20 160/74 96 - Laboratory Lab Statement: Any lab studies that have been ordered have been reviewed, and results considered in the medical decision making process. Headache Course/Dx - Course Course Of Treatment: Patient presents with headache, vision changes, equilibrium changes, and nausea. Patient has history of migranes. MRI was taken at [place] 2 weeks ago; pt has not recieved results and is most likely negative. Patient was given Benadryl, Toradol and Reglan for symptoms. Patient is dischared with dx of migranes. - Diagnoses Provider Diagnoses: Migraine Discharge - Discharge Plan Condition: Stable Disposition: HOME Patient Education Materials: Migraine Headache (ED) Referrals: Akin Kang MD [Primary Care Provider] - Additional Instructions: RETURN TO THE EMERGENCY DEPARTMENT FOR CHANGING OR WORSENING SYMPTOMS. The documentation as recorded by the Gisselle hobbs Julia accurately reflects the service I personally performed and the decisions made by Sarah caruso Abdul, MD.
== END 2017-05-18 04:14 | disposition home or self-care (01) ==
LOC: ED 22:08
DX: G43.909 Migraine, unspecified, not intractable, without status migrainosus (principal); R11.0 Nausea; R42 Dizziness and giddiness; R53.1 Weakness; H53.8 Other visual disturbances; M54.2 Cervicalgia; Z87.891 Personal history of nicotine dependence
CPT/HCPCS: J1200; J1885

== ENCOUNTER 2017-06-13 15:47 | Emergency (ER) | payer BC, MEDICAID ==
--- NOTE | 2017-06-13 19:21 | ED ---
Influenza-Like Illness - HPI Summary HPI Summary: Patient here with 3 day history of flulike symptoms. Reports headache with sinus pressure, aches, decreased appetite without vomiting or diarrhea although he has reported loose explosive stools and increased gassiness. He has a dry cough and ear pressure intermittently. 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 Has not tried much she had to alleviate his symptoms. Reports he works about 90 hours a week and takes care of his 2 children at home for disabled. Did not receive influenza vaccine this year. Medical health issues include thyroid dysfunction for which she takes metoprolol (he is weaning off of this currently) and gastritis with GERD for which he treats with ranitidine. He was on Prilosec in the past however had malabsorption issue so no longer takes this. He does still take Gas-X. Sleep apnea - uses CPAP however is in the process of getting humidification installed - just started using a separate unit this past week. Keeps home temp at 65F. - History of Current Complaint Chief Complaint: EDFluSymptoms Time Seen by Provider: 06/13/17 17:11 Hx Obtained From: Patient - Allergy/Home Medications Allergies/Adverse Reactions: Allergies Allergy/AdvReac Type Severity Reaction Status Date / Time MS Hydromorphone Allergy Severe Altered Verified 03/09/17 21:25 [From Dilaudid] Mental Status MS Cephalexin [From Keflex] Allergy Intermediate Hives Verified 03/09/17 21:25 MS Erythromycin Allergy Intermediate Hives Verified 03/09/17 21:25 [Erythromycin] MS Penicillins [Penicillins] Allergy Intermediate Hives Verified 03/09/17 21:25 MS Tetracyclines Allergy Intermediate Hives Verified 03/09/17 21:25 [Tetracyclines] MS Sumatriptan [From Imitrex] Allergy Unknown Verified 03/09/17 21:25 Reaction Details PMH/Surg Hx/FS Hx/Imm Hx Previously Healthy: Yes Endocrine/Hematology History: Reports: Hx Thyroid Disease - h/o thyroid storm - takes metoprolol Denies: Hx Anticoagulant Therapy, Hx Diabetes, Other Endocrine/Hematological Disorders Cardiovascular History: Reports: Hx Hypercholesterolemia, Hx Hypertension, Other Cardiovascular Problems/Disorders - ATRIAL FIB 2ndry to thyroid storm Denies: Hx Angina, Hx Coronary Artery Disease, Hx Myocardial Infarction, Hx Pacemaker/ICD, Hx Valvular Heart Disease Respiratory History: Reports: Hx Asthma - exercise induced, Hx Sleep Apnea - CPAP - no humidification (working on it)., Other Respiratory Problems/Disorders - PN X 2 WINTER 2011 Denies: Hx Chronic Obstructive Pulmonary Disease (COPD) GI History: Reports: Hx Gastroesophageal Reflux Disease, Hx Hiatal Hernia Denies: Other GI Disorders History: Reports: Hx Kidney Stones Denies: Hx Renal Disease, Other Problems/Disorders Musculoskeletal History: Reports: Hx Arthritis, Other Musculoskeletal History - DJD Sensory History: Reports: Hx Contacts or Glasses Denies: Hx Hearing Aid, Other Sensory Impairments Opthamlomology History: Reports: Hx Contacts or Glasses Denies: Other Sensory Impairments Neurological History: Reports: Hx Headaches - "sinus headaches", Hx Migraine Denies: Hx Dementia, Hx Seizures, Other Neuro Impairments/Disorders Psychiatric History: Denies: Hx Panic Disorder, Hx Substance Abuse, Other Psychiatric Issues/ Disorders - Surgical History Surgery Procedure, Year, and Place: INGUINAL HERNIA REPAIR A CHILD - Immunization History Date of Tetanus Vaccine: utd Date of Influenza Vaccine: 2015 Infectious Disease History: No Infectious Disease History: Reports: Hx Hepatitis, Hx Shingles Denies: Hx Clostridium Difficile, Hx Human Immunodeficiency Virus (HIV), Hx Tuberculosis, Traveled Outside the [place] in Last 30 Days - Family History Known Family History: Positive: Hypertension - Social History 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 Negative: Shortness Of Breath Positive: Other - reduced appetite - see HPI Positive: no symptoms reported Positive: Arthralgia Skin: Negative Positive: Headache Psychological: Normal All Other Systems Reviewed And Are Negative: Yes Physical Exam Triage Information Reviewed: Yes Vital Signs On Initial Exam: Initial Vitals Temp Pulse Resp BP Pulse Ox 97.8 F 65 16 163/85 97 06/13/17 15:56 06/13/17 15:56 06/13/17 15:56 06/13/17 15:56 06/13/17 15:56 Vital Signs Reviewed: Yes Appearance: Positive: No Pain Distress, Ill-Appearing - mildly ill appearing Skin: Positive: Warm, Skin Color Reflects Adequate Perfusion, Dry - no rash Head/Face: Positive: Normal Head/Face Inspection Eyes: Positive: Normal, EOMI, MARTHA, Conjunctiva Clear. Negative: Conjunctiva Inflammed, Discharge ENT: Positive: Normal ENT inspection, Hearing grossly normal, Pharynx normal - cobblestoning, Nasal congestion, TMs normal. Negative: Nasal drainage Neck: Positive: Supple, Nontender Respiratory/Lung Sounds: Positive: Clear to Auscultation, Breath Sounds Present. Negative: Rales, Rhonchi, Wheezes Cardiovascular: Positive: Normal - distant heart sounds, RRR, S1, S2. Negative : Murmur, Rub Abdomen Description: Positive: Nontender, No Organomegaly, Soft Bowel Sounds: Positive: Present Musculoskeletal: Positive: Normal, Strength/ROM Intact Neurological: Positive: Normal, Sensory/Motor Intact, Alert, Oriented to Person Place, Time, CN Intact II-III Psychiatric: Positive: Normal Diagnostics - Vital Signs Vital Signs Temp Pulse Resp BP Pulse Ox 06/13/17 15:56 97.8 F 65 16 163/85 97 - Laboratory Lab Results: Lab Results 06/13/17 Range/Units 16:04 Influenza A (Rapid) Negative (Negative) Influenza B (Rapid) Negative (Negative) Lab Statement: Any lab studies that have been ordered have been reviewed, and results considered in the medical decision making process. Flu Symptom Course/Dx - Course Course Of Treatment: Flu swab neg -suspect viral syndrome of another variety. - Diagnoses Provider Diagnoses: Flu-like symptoms Discharge - Discharge Plan Condition: Stable Disposition: HOME Patient Education Materials: Viral Syndrome (ED) Forms: *Work Release Referrals: Akin Kang MD [Primary Care Provider] - Additional Instructions: Perform nasal wash/netti pot 2 x day with 8 ounces of warm water + 1/4 teaspoon of salt or saline nasal spray as needed for nasal congestion, PND Perform throat gargles with warm salt water as needed ST, ear pain/pressure Drink 60+ ounces of water daily Sleep 8+ hours per night Avoid Dairy and sugar Drink hot herbal/decaf tea with lemon & honey Drink chicken broth (preferably organic, free range chicken) Use a humidifier in your house, but especially near bed at night. You may also keep home temperature at 68F or less. Try a facial steam with or without eucalyptus essential oil or Madi's vapor rub for decongestion. Cough drops Ibuprofen alternating with acetaminophen for pain, fever Avoid smoke, candles, perfumes/colonge, air fresheners, scented lotions, etc Consider taking Vitamin D3 5,000iu and Vitamin C 1,000mg every day during illness *If symptoms linger or settle into 1 area beyond 14 days, follow-up with PCP. If worse, return to ED
[2017-06-13 19:32] VITALS: BP 151/81
== END 2017-06-13 19:31 | disposition home or self-care (01) ==
LOC: ED 15:47
DX: R51 Headache (principal); M79.1 Myalgia; R63.0 Anorexia; R05 Cough; H93.8X9 Other specified disorders of ear, unspecified ear; Z87.891 Personal history of nicotine dependence; Z88.3 Allergy status to other anti-infective agents; Z88.0 Allergy status to penicillin; Z88.2 Allergy status to sulfonamides; Z88.8 Allergy status to other drugs, medicaments and biological substances
CPT/HCPCS: 87502; 99282

== ENCOUNTER 2017-06-21 11:58 | Emergency (ER) | payer BC, MEDICAID ==
[2017-06-21 12:51] LABS: ABS Basophils 0 10^3/ul (0-0.2); ABS Eosinophils 0.1 10^3/ul (0-0.6); ABS Lymphocytes 1.5 10^3/ul (1.0-4.8); ABS Monocytes 0.5 10^3/ul (0-0.8); ABS Neutrophils 3.9 10^3/ul (1.5-7.7); ABS Nucleated RBC 0 10^3/ul; Eosinophil % 2.3 % (0-6); Hematocrit 44 % (42-52); Hemoglobin 14.8 g/dl (14.0-18.0); Lymphocyte % 25.3 % (25-47); Mean Corpuscular HGB Conc 34 g/dl (31-36); Mean Corpuscular Hemoglobin 30 pg (27-31); Mean Corpuscular Volume 89 fL (80-94); Mean Platelet Volume 6 um3 (7.4-10.4); Nucleated Red Blood Cells % 0.1; Platelet Count 200 10^3/ul (150-450); Red Blood Count 4.97 10^6/ul (4.0-5.4); Red Cell Distribution Width 14 % (10.5-15); White Blood Count 6.1 10^3/ul (3.5-10.8)
[2017-06-21 13:06] LABS: EGFR Non-African American 76.5 (>60)
[2017-06-21 15:05] LABS: Urine Appearance Clear; Urine Blood Negative (Negative); Urine Color Yellow; Urine Ketones Negative (Negative); Urine Protein Negative (Negative); Urine Urobilinogen Negative (Negative)
[2017-06-21 15:28] VITALS: BP 147/73
--- NOTE | 2017-06-21 16:59 | RAD ---
INDICATION: Bilateral lower abdominal pain. Diarrhea. Remote inguinal hernia repair. COMPARISON: February 07, 2017 CT. TECHNIQUE: Multidetector CT images were obtained from the lung bases to the ischial tuberosities. Oral contrast administered. Assessment of the visceral limited without IV contrast. REPORT: Large body habitus limits image quality particularly at the LEFT lateral abdomen margin. Unremarkable visualized inferior thorax. 21 cm cephalocaudal liver is diffusely decreased in density consistent with fatty infiltration. No focal abnormality of the liver. Unremarkable gallbladder, pancreas, spleen. Negative for CT abnormality of the upper GI, small bowel, or diminutive inferiorly extending appendix. Mild colonic diverticulosis at the LEFT colon without findings of acute diverticulitis. Negative for ascites, free air, or hernias. Normal adrenal glands. Negative for urolithiasis or hydronephrosis. No conspicuous focal renal lesions. Negative for perinephric or periureteral inflammatory stranding. No CT abnormality of the partially distended urinary bladder. Coarse calcification at the prostate. Symmetric seminal vesicles. Mild calcific plaque of normal diameter abdominal aorta. Physiologic distention of the IVC. Negative for suspicious focal osseous lesions. Thoracic and lumbar sacral spine degenerative spondylosis and facet joint osteoarthritis. IMPRESSION: 1. Normal appendix documented. 2. Mild colonic diverticulosis without findings of acute diverticulitis. No acute pathologic process of the alimentary tract evident. 3. Hepatomegaly and hepatosteatosis. 4. Negative for obstructive uropathy.
[2017-06-21] MEDS ORDERED: metroNIDAZOLE TAB* 250 MG PO ONE (17:15)
--- NOTE | 2017-06-28 16:00 | ED ---
Katia Couch Thomas, scribed for Shorty Quiroz MD on 06/21/17 at 1401 . Abdominal Pain/Male - HPI Summary HPI Summary: The patient is a 57 year old male complaining of abdominal pain for the last two weeks. There is some relief of bloating with bowel movements. The patient has been dealing with loose stools, diarrhea, and stools with mucous. The patient denies fever, sweats, chills, bloody stools, dizziness, and lightheadedness. He denies recent travel and recent suspect food. Past medical history includes gastritis and inguinal hernia repair. - History of Current Complaint Chief Complaint: EDAbdPain Stated Complaint: ABD PAIN Time Seen by Provider: 06/21/17 13:50 Hx Obtained From: Patient Onset/Duration: Lasting Weeks - 2, Still Present Timing: Intermittent Severity Currently: Moderate Pain Intensity: 7 Pain Scale Used: 0-10 Numeric Radiates: No Aggravating Factor(s): Nothing Alleviating Factor(s): Bowel Movement Associated Signs And Symptoms: Positive: Diarrhea, Other - Loose stools, stools with mucous; NEGATIVE: fever, sweats, chills, bloody stools, dizziness, lightheadedness - Allergies/Home Medications Allergies/Adverse Reactions: Allergies Allergy/AdvReac Type Severity Reaction Status Date / Time hydromorphone Allergy Severe Altered Verified 06/21/17 13:27 Mental Status cephalexin Allergy Intermediate Hives Verified 06/21/17 13:27 erythromycin base Allergy Intermediate Hives Verified 06/21/17 13:27 Penicillins Allergy Intermediate Hives Verified 06/21/17 13:27 Tetracyclines Allergy Intermediate Hives Verified 06/21/17 13:27 sumatriptan Allergy Unknown Verified 06/21/17 13:27 Reaction Details Iodinated contrast media Allergy Unknown Unknown Uncoded 06/21/17 14:42 Reaction Details PMH/Surg Hx/FS Hx/Imm Hx Endocrine/Hematology History: Reports: Hx Thyroid Disease - h/o thyroid storm - takes metoprolol Denies: Hx Anticoagulant Therapy, Hx Diabetes, Other Endocrine/Hematological Disorders Cardiovascular History: Reports: Hx Hypercholesterolemia, Hx Hypertension, Other Cardiovascular Problems/Disorders - ATRIAL FIB 2ndry to thyroid storm Denies: Hx Angina, Hx Coronary Artery Disease, Hx Myocardial Infarction, Hx Pacemaker/ICD, Hx Valvular Heart Disease Respiratory History: Reports: Hx Asthma - exercise induced, Hx Sleep Apnea - CPAP - no humidification (working on it)., Other Respiratory Problems/Disorders - PN X 2 WINTER 2011 Denies: Hx Chronic Obstructive Pulmonary Disease (COPD) GI History: Reports: Hx Gastroesophageal Reflux Disease, Hx Hiatal Hernia, Other GI Disorders - Hx gastritis History: Reports: Hx Kidney Stones Denies: Hx Renal Disease, Other Problems/Disorders Musculoskeletal History: Reports: Hx Arthritis, Other Musculoskeletal History - DJD Sensory History: Reports: Hx Contacts or Glasses Denies: Hx Hearing Aid, Other Sensory Impairments Opthamlomology History: Reports: Hx Contacts or Glasses Denies: Other Sensory Impairments Neurological History: Reports: Hx Headaches - "sinus headaches", Hx Migraine Denies: Hx Dementia, Hx Seizures, Other Neuro Impairments/Disorders Psychiatric History: Denies: Hx Panic Disorder, Hx Substance Abuse, Other Psychiatric Issues/ Disorders - Surgical History Surgery Procedure, Year, and Place: INGUINAL HERNIA REPAIR A CHILD - Immunization History Date of Tetanus Vaccine: utd Date of Influenza Vaccine: 2015 Infectious Disease History: No Infectious Disease History: Reports: Hx Hepatitis, Hx Shingles Denies: Hx Clostridium Difficile, Hx Human Immunodeficiency Virus (HIV), Hx Tuberculosis, Traveled Outside the [place] in Last 30 Days - Family History Known Family History: Positive: Hypertension - Social History Alcohol Use: None Alcohol Amount: quit Hx Substance Use: Yes - none currently Substance Use Type: Reports: None Substance Use Comment - Amount & Last Used: quit Hx Tobacco Use: Yes - not currently Smoking Status (MU): Former Smoker Review of Systems Negative: Fever, Chills, Other - sweats Negative: Erythema - eyes Negative: Sore Throat Negative: Chest Pain Negative: Shortness Of Breath, Cough Positive: Abdominal Pain, Diarrhea, Other - Loose stools, stools with mucous; NEGATIVE: bloody stools. Negative: Vomiting, Nausea Negative: dysuria, hematuria Negative: Myalgia, Edema Negative: Rash Neurological: Negative - dizziness, lightheadedness All Other Systems Reviewed And Are Negative: Yes Physical Exam - Summary Physical Exam Summary: Constitutional: Well-developed, Well-nourished, Alert. (-) Distressed Skin: Warm, Dry HENT: Normocephalic; Atraumatic Eyes: Conjunctiva normal Neck: Musculoskeletal ROM normal neck. (-) JVD, (-) Stridor, (-) Tracheal deviation Cardio: Rhythm regular, rate normal, Heart sounds normal; Intact distal pulses; The pedal pulses are 2+ and symmetric. Radial pulses are 2+ and symmetric. (-) Murmur Pulmonary/Chest wall: Effort normal. (-) Respiratory distress, (-) Wheezes, (-) Rales Abd: Soft. There is LLQ tenderness. (-) Distension, (-) Guarding, (-) Rebound Musculoskeletal: (-) Edema Lymph: (-) Cervical adenopathy Neuro: Alert, Oriented x3 Psych: Mood and affect Normal Triage Information Reviewed: Yes Vital Signs On Initial Exam: Initial Vitals Temp Pulse Resp BP Pulse Ox 98.8 F 69 18 184/89 98 06/21/17 11:58 06/21/17 11:58 06/21/17 11:58 06/21/17 11:58 06/21/17 11:58 Vital Signs Reviewed: Yes Diagnostics - Vital Signs Vital Signs Temp Pulse Resp BP Pulse Ox 06/21/17 11:58 98.8 F 69 18 184/89 98 - Laboratory Lab Results: Lab Results 06/21/17 06/21/17 06/21/17 Range/Units 12:40 12:40 12:40 WBC 6.1 (3.5-10.8) 10^3/ul RBC 4.97 (4.0-5.4) 10^6/ul Hgb 14.8 (14.0-18.0) g/dl Hct 44 (42-52) % MCV 89 (80-94) fL MCH 30 (27-31) pg MCHC 34 (31-36) g/dl RDW 14 (10.5-15) % Plt Count 200 (150-450) 10^3/ul MPV 6 L (7.4-10.4) um3 Neut % (Auto) 63.7 (38-83) % Lymph % (Auto) 25.3 (25-47) % Lewis % (Auto) 8.0 H (0-7) % Eos % (Auto) 2.3 (0-6) % Baso % (Auto) 0.7 (0-2) % Absolute Neuts (auto) 3.9 (1.5-7.7) 10^3/ul Absolute Lymphs (auto) 1.5 (1.0-4.8) 10^3/ul Absolute Monos (auto) 0.5 (0-0.8) 10^3/ul Absolute Eos (auto) 0.1 (0-0.6) 10^3/ul Absolute Basos (auto) 0 (0-0.2) 10^3/ul Absolute Nucleated RBC 0 10^3/ul Nucleated RBC % 0.1 Sodium 137 (133-145) mmol/L Potassium 4.1 (3.5-5.0) mmol/L Chloride 103 (101-111) mmol/L Carbon Dioxide 27 (22-32) mmol/L Anion Gap 7 (2-11) mmol/L BUN 10 (6-24) mg/dL Creatinine 1.00 (0.67-1.17) mg/dL Est GFR ( Amer) 98.4 (>60) Est GFR (Non-Af Amer) 76.5 (>60) BUN/Creatinine Ratio 10.0 (8-20) Glucose 120 H (70-100) mg/dL Lactic Acid 1.6 (0.5-2.0) mmol/L Calcium 9.7 (8.6-10.3) mg/dL Total Bilirubin 0.70 (0.2-1.0) mg/dL AST 33 (13-39) U/L ALT 37 (7-52) U/L Alkaline Phosphatase 45 (34-104) U/L C-Reactive Protein 1.96 (< 5.00) mg/L Total Protein 7.2 (6.4-8.9) g/dL Albumin 4.4 (3.2-5.2) g/dL Globulin 2.8 (2-4) g/dL Albumin/Globulin Ratio 1.6 (1-3) Lipase 36 (11.0-82.0) U/L Result Diagrams: 06/21/17 12:40 06/21/17 12:40 Lab Statement: Any lab studies that have been ordered have been reviewed, and results considered in the medical decision making process. - CT CT Abd/Pel CT Interpretation: No Acute Changes - 1. Normal appendix documented. 2. Mild colonic diverticulosis without findings of acute diverticulitis. No acute pathologic process of the alimentary tract evident. 3. Hepatomegaly and hepatosteatosis. 4. Negative for obstructive uropathy. Dr. Quiroz has reviewed this report. CT Interpretation Completed By: Radiologist Abdominal Pain Fem Course/Dx - Course Assessment/Plan: The patient is a 57 year old male complaining of abdominal pain for the last two weeks. The patient has been dealing with loose stools, diarrhea, and stools with mucous. Bloodwork and urinalysis were obtained. CT Abd /Pel shows 1. Normal appendix documented. 2. Mild colonic diverticulosis without findings of acute diverticulitis. No acute pathologic process of the alimentary tract evident. 3. Hepatomegaly and hepatosteatosis. 4. Negative for obstructive uropathy. The patient is discharged home with primary care follow up. He is prescribed Flagyl and Ultram. - Diagnoses Provider Diagnoses: C. difficile colitis Discharge - Discharge Plan Condition: Stable Disposition: HOME Prescriptions: metroNIDAZOLE [Flagyl 500 MG TAB] 500 mg PO TID #63 tab metroNIDAZOLE [Flagyl 500 MG TAB] 500 mg PO TID #63 tab traMADol TAB* [Ultram*] 50 mg PO Q6HR PRN #12 tab MDD 4 PRN Reason: Pain Scale 6-10 Patient Education Materials: Clostridium Difficile Infection (ED), Colitis (ED) Forms: *Work Release Referrals: Akin Kang MD [Primary Care Provider] - 2 Days Additional Instructions: Follow up with Dr. Kang in 2-3 days. I recommend Probiotics and Activia. Return to the emergency department for any new or worsening symptoms. The documentation as recorded by the Katia hobbs Thomas accurately reflects the service I personally performed and the decisions made by , Shorty Quiroz MD.
== END 2017-06-21 18:06 | disposition home or self-care (01) ==
LOC: ED 11:58
DX: A04.72 Enterocolitis due to Clostridium difficile, not specified as recurrent (principal); R19.7 Diarrhea, unspecified; R10.9 Unspecified abdominal pain; Z87.891 Personal history of nicotine dependence
CPT/HCPCS: 36415; 74176; 80053; 81003; 83605; 83690; 85025; 86140; 87493; 99282; A9270-GY

== ENCOUNTER 2017-08-20 16:51 | Emergency (ER) | payer BC, MEDICAID ==
[2017-08-20 17:45] LABS: ABS Basophils 0.1 10^3/ul (0-0.2); ABS Eosinophils 0.1 10^3/ul (0-0.6); ABS Lymphocytes 2.2 10^3/ul (1.0-4.8); ABS Monocytes 0.5 10^3/ul (0-0.8); ABS Nucleated RBC 0 10^3/ul; Eosinophil % 1.7 % (0-6); Hematocrit 41 % (42-52); Lymphocyte % 31.3 % (25-47); Mean Corpuscular HGB Conc 34 g/dl (31-36); Mean Corpuscular Hemoglobin 30 pg (27-31); Mean Corpuscular Volume 88 fL (80-94); Mean Platelet Volume 6.4 um3 (7.4-10.4); Nucleated Red Blood Cells % 0; Platelet Count 201 10^3/ul (150-450); Red Blood Count 4.69 10^6/ul (4.0-5.4); Red Cell Distribution Width 14 % (10.5-15); White Blood Count 6.9 10^3/ul (3.5-10.8)
[2017-08-20 17:53] LABS: INR 0.94 (0.77-1.02)
--- NOTE | 2017-08-20 17:55 | RAD ---
Indication: Chest pain. History of tobacco use. History of atrial fibrillation. Comparison: February 07, 2017 Technique: Upright AP 1726 hours Report: Accounting for superimposed soft tissues the lungs and pleural spaces are clear. Negative for pneumothorax. The heart, pulmonary vasculature, and mediastinal contours are unremarkable. IMPRESSION: No evidence for acute intrathoracic disease.
[2017-08-20 18:05] LABS: EGFR Non-African American 77.4 (>60)
[2017-08-20] MEDS ORDERED: NS 0.9% 1000 ML* 1,000 ML IV ONE (18:10)
--- NOTE | 2017-08-20 19:05 | RAD ---
INDICATION: Shortness of breath, palpitations. Bloating. Remote previous inguinal hernia repair. COMPARISON: June 21, 2017 CT TECHNIQUE: Multidetector CT images were obtained from the lung bases to the ischial tuberosities. Evaluation of the viscera is limited without IV contrast. Multiplanar reformation. REPORT: Minimal subsegmental atelectasis at the LEFT lung base. Mildly prominent 19 cm cephalocaudal liver. Decreased density of the liver relative to the spleen consistent with fatty infiltration. No CT abnormality of the gallbladder. Moderately atrophic pancreas without suspicious finding. Unremarkable spleen. Negative for CT abnormality of the upper GI or small bowel. While the appendix is not discretely visualized, there is no inflammatory change in the right lower quadrant or region of the tip of the cecum to suggest presence of an acute inflammatory process. Unremarkable colon. Negative for ascites, free air, hernias. Normal adrenal glands. Negative for urolithiasis or hydronephrosis. This focal renal lesions. Unremarkable nondilated ureters and partially distended urinary bladder. Symmetric seminal vesicles. Negative for lymphadenopathy. Normal portal caval lymph node visualized. Normal diameter abdominal aorta with mild atherosclerotic plaque. Physiologic distention of the IVC. Thoracic and lumbar sacral spine degenerative spondylosis and facet joint osteoarthritis. Moderately severe bilateral hip joint osteoarthritis. Negative for fracture or suspicious focal osseous lesions. IMPRESSION: 1. Fatty infiltration of the liver. 2. No pathologic process of the alimentary tract evident. While the appendix is not discretely visualized, there is no inflammatory change in the right lower quadrant or region of the tip of the cecum to suggest presence of an acute inflammatory process. 3. Negative for obstructive uropathy. 4. Negative for lymphadenopathy. 5. Negative for ascites.
[2017-08-20 19:39] VITALS: BP 131/64
--- NOTE | 2017-08-22 10:35 | ED ---
Radha Couch Jason, scribed for Cheikh Craig MD on 08/20/17 at 1848 . Palpitations / Dysrhythmia - HPI Summary HPI Summary: This patient is a 57 year old M presenting to [facility] with a chief complaint of palpitations and abdominal pain since 2 days ago. He includes that he was on Metoprolol and it was discontinued by his PCP. He believes this could be contributing to his current palpitations. The patient rates the pain 0/10 in severity. Symptoms aggravated by nothing. Symptoms alleviated by nothing. Patient denies CP, SOB, fevers, chills, nausea, and vomiting. - History of Current Complaint Chief Complaint: EDDysrhythmPalp Time Seen by Provider: 08/20/17 17:06 Hx Obtained From: Patient Onset/Duration: Sudden Onset, Still Present - intermittent Aggravating: Nothing Alleviating: Nothing Associated Signs & Symptoms: Negative - CP, SOB, fevers, chills, nausea, and vomiting. - Allergy/Home Medications Allergies/Adverse Reactions: Allergies Allergy/AdvReac Type Severity Reaction Status Date / Time hydromorphone Allergy Severe Altered Verified 06/21/17 13:27 Mental Status cephalexin Allergy Intermediate Hives Verified 06/21/17 13:27 erythromycin base Allergy Intermediate Hives Verified 06/21/17 13:27 Penicillins Allergy Intermediate Hives Verified 06/21/17 13:27 Tetracyclines Allergy Intermediate Hives Verified 06/21/17 13:27 sumatriptan Allergy Unknown Verified 06/21/17 13:27 Reaction Details Iodinated contrast media Allergy Unknown Unknown Uncoded 06/21/17 14:42 Reaction Details Home Medications: Home Medications Ketoconazole 2 % CREAM (NF) [Nizoral 2% CREAM (NF)] 1 applic TOPICAL DAILY PRN 08/20/17 [History Confirmed 08/20/17] Lactobacillus Acidophilus [Acidophilus] 1 cap PO DAILY 08/20/17 [History Confirmed 08/20/17] Meclizine TAB* [Antivert 12.5 TAB*] 12.5 mg PO TID PRN MDD 3 08/20/17 [History Confirmed 08/20/17] Vancomycin CAP* 1 cap PO QID 08/20/17 [History Confirmed 08/20/17] PMH/Surg Hx/FS Hx/Imm Hx Previously Healthy: No Endocrine/Hematology History: Reports: Hx Thyroid Disease - h/o thyroid storm - takes metoprolol Denies: Hx Anticoagulant Therapy, Hx Diabetes, Other Endocrine/Hematological Disorders Cardiovascular History: Reports: Hx Hypercholesterolemia, Hx Hypertension, Other Cardiovascular Problems/Disorders - ATRIAL FIB 2000 2ndry to thyroid storm Denies: Hx Angina, Hx Coronary Artery Disease, Hx Myocardial Infarction, Hx Pacemaker/ICD, Hx Valvular Heart Disease Respiratory History: Reports: Hx Asthma - exercise induced, Hx Sleep Apnea - CPAP - no humidification (working on it)., Other Respiratory Problems/Disorders - PN X 2 WINTER 2011 Denies: Hx Chronic Obstructive Pulmonary Disease (COPD) GI History: Reports: Hx Gastroesophageal Reflux Disease, Hx Hiatal Hernia, Other GI Disorders - Hx gastritis History: Reports: Hx Kidney Stones Denies: Hx Renal Disease, Other Problems/Disorders Musculoskeletal History: Reports: Hx Arthritis, Other Musculoskeletal History - DJD Sensory History: Reports: Hx Contacts or Glasses Denies: Hx Hearing Aid, Other Sensory Impairments Opthamlomology History: Reports: Hx Contacts or Glasses Denies: Other Sensory Impairments Neurological History: Reports: Hx Headaches - "sinus headaches", Hx Migraine Denies: Hx Dementia, Hx Seizures, Other Neuro Impairments/Disorders Psychiatric History: Denies: Hx Panic Disorder, Hx Substance Abuse, Other Psychiatric Issues/ Disorders - Surgical History Surgery Procedure, Year, and Place: INGUINAL HERNIA REPAIR A CHILD - Immunization History Date of Tetanus Vaccine: utd Date of Influenza Vaccine: 2015 Infectious Disease History: No Infectious Disease History: Reports: Hx Hepatitis, Hx Shingles Denies: Hx Clostridium Difficile, Hx Human Immunodeficiency Virus (HIV), Hx Tuberculosis, Traveled Outside the [place] in Last 30 Days - Family History Known Family History: Positive: Hypertension - Social History Alcohol Use: None Alcohol Amount: quit 1985 Hx Substance Use: Yes - none currently Substance Use Type: Reports: None Substance Use Comment - Amount & Last Used: quit 1985 Hx Tobacco Use: Yes - not currently Smoking Status (MU): Former Smoker Review of Systems Negative: Fever, Chills Positive: Palpitations. Negative: Chest Pain Negative: Shortness Of Breath Positive: Abdominal Pain. Negative: Vomiting, Nausea All Other Systems Reviewed And Are Negative: Yes Physical Exam - Summary Physical Exam Summary: GENERAL: ~Patient is a well developed and nourished male who is lying comfortable in the stretcher. ~Patient is not in any acute respiratory distress. HEAD AND FACE: Normocephalic EYES: PERRLA, EOMI x 2. EARS: Hearing grossly intact. MOUTH: Oropharynx within normal limits. NECK: Supple, trachea is midline, no adenopathy, no JVD, no carotid bruit. CHEST: Symmetric, no tenderness at palpation LUNGS: Clear to auscultation bilaterally. No wheezing or crackles. CVS: Regular rate and rhythm, S1 and S2 present, no murmurs or gallops appreciated. ABDOMEN: Soft, Tenderness to palpation diffusely in the abdomen. Bowel sounds are normal. No abdominal abnormal pulsations. EXTREMITIES: Full ROM in all major joints, no edema, no cyanosis or clubbing. NEURO: Alert and oriented x 3. No acute neurological deficits. Speech is normal and follows commands. SKIN: Dry and warm Triage Information Reviewed: Yes Vital Signs On Initial Exam: Initial Vitals Temp 97.6 F 08/20/17 16:53 Vital Signs Reviewed: Yes Diagnostics - Vital Signs Vital Signs Temp Pulse Resp BP Pulse Ox 08/20/17 18:07 65 22 138/67 96 08/20/17 18:00 67 13 98 08/20/17 17:37 65 10 144/61 99 08/20/17 17:26 99 08/20/17 17:07 78 12 171/74 97 08/20/17 16:53 97.6 F - Laboratory Lab Results: Lab Results 08/20/17 08/20/17 08/20/17 Range/Units 17:31 17:31 17:31 WBC 6.9 (3.5-10.8) 10^3/ul RBC 4.69 (4.0-5.4) 10^6/ul Hgb 14.0 (14.0-18.0) g/dl Hct 41 L (42-52) % MCV 88 (80-94) fL MCH 30 (27-31) pg MCHC 34 (31-36) g/dl RDW 14 (10.5-15) % Plt Count 201 (150-450) 10^3/ul MPV 6.4 L (7.4-10.4) um3 Neut % (Auto) 58.6 (38-83) % Lymph % (Auto) 31.3 (25-47) % [place] % (Auto) 7.6 H (0-7) % Eos % (Auto) 1.7 (0-6) % Baso % (Auto) 0.8 (0-2) % Absolute Neuts (auto) 4.0 (1.5-7.7) 10^3/ul Absolute Lymphs (auto) 2.2 (1.0-4.8) 10^3/ul Absolute Monos (auto) 0.5 (0-0.8) 10^3/ul Absolute Eos (auto) 0.1 (0-0.6) 10^3/ul Absolute Basos (auto) 0.1 (0-0.2) 10^3/ul Absolute Nucleated RBC 0 10^3/ul Nucleated RBC % 0 INR (Anticoag Therapy) (0.77-1.02) APTT (26.0-36.3) seconds Sodium 140 (139-145) mmol/L Potassium 3.4 L (3.5-5.0) mmol/L Chloride 104 (101-111) mmol/L Carbon Dioxide 26 (22-32) mmol/L Anion Gap 10 (2-11) mmol/L BUN 11 (6-24) mg/dL Creatinine 0.99 (0.67-1.17) mg/dL Est GFR ( Amer) 99.5 (>60) Est GFR (Non-Af Amer) 77.4 (>60) BUN/Creatinine Ratio 11.1 (8-20) Glucose 123 H (70-100) mg/dL Lactic Acid 2.4 H* (0.5-2.0) mmol/L Calcium 9.4 (8.6-10.3) mg/dL Total Bilirubin 0.70 (0.2-1.0) mg/dL AST 30 (13-39) U/L ALT 35 (7-52) U/L Alkaline Phosphatase 40 (34-104) U/L Troponin I 0.00 (<0.04) ng/mL Total Protein 6.4 (6.4-8.9) g/dL Albumin 4.1 (3.2-5.2) g/dL Globulin 2.3 (2-4) g/dL Albumin/Globulin Ratio 1.8 (1-3) TSH 3.60 (0.34-5.60) mcIU/mL Free T4 0.72 (0.61-1.12) ng/dL 08/20/17 Range/Units 17:31 WBC (3.5-10.8) 10^3/ul RBC (4.0-5.4) 10^6/ul Hgb (14.0-18.0) g/dl Hct (42-52) % MCV (80-94) fL MCH (27-31) pg MCHC (31-36) g/dl RDW (10.5-15) % Plt Count (150-450) 10^3/ul MPV (7.4-10.4) um3 Neut % (Auto) (38-83) % Lymph % (Auto) (25-47) % [place] % (Auto) (0-7) % Eos % (Auto) (0-6) % Baso % (Auto) (0-2) % Absolute Neuts (auto) (1.5-7.7) 10^3/ul Absolute Lymphs (auto) (1.0-4.8) 10^3/ul Absolute Monos (auto) (0-0.8) 10^3/ul Absolute Eos (auto) (0-0.6) 10^3/ul Absolute Basos (auto) (0-0.2) 10^3/ul Absolute Nucleated RBC 10^3/ul Nucleated RBC % INR (Anticoag Therapy) 0.94 (0.77-1.02) APTT 31.4 (26.0-36.3) seconds Sodium (139-145) mmol/L Potassium (3.5-5.0) mmol/L Chloride (101-111) mmol/L Carbon Dioxide (22-32) mmol/L Anion Gap (2-11) mmol/L BUN (6-24) mg/dL Creatinine (0.67-1.17) mg/dL Est GFR ( Amer) (>60) Est GFR (Non-Af Amer) (>60) BUN/Creatinine Ratio (8-20) Glucose (70-100) mg/dL Lactic Acid (0.5-2.0) mmol/L Calcium (8.6-10.3) mg/dL Total Bilirubin (0.2-1.0) mg/dL AST (13-39) U/L ALT (7-52) U/L Alkaline Phosphatase (34-104) U/L Troponin I (<0.04) ng/mL Total Protein (6.4-8.9) g/dL Albumin (3.2-5.2) g/dL Globulin (2-4) g/dL Albumin/Globulin Ratio (1-3) TSH (0.34-5.60) mcIU/mL Free T4 (0.61-1.12) ng/dL Result Diagrams: 08/20/17 17:31 08/20/17 17:31 Lab Statement: Any lab studies that have been ordered have been reviewed, and results considered in the medical decision making process. - CT abdomen/pelvis CT Interpretation Completed By: Radiologist - CT Abdomen/Pelvis reveals, per radiologist, 1. Fatty infiltration of the liver. 2. No pathologic process of the alimentary tract evident. While the appendix is not discretely visualized, there is no inflammatory change in the right lower quadrant or region of the tip of the cecum to suggest presence of an acute inflammatory process. 3. Negative for obstructive uropathy. 4. Negative for lymphadenopathy. 5. Negative for ascites. - EKG 1652 Cardiac Rate: NL EKG Rhythm: Sinus Rhythm - [address] Segment: Normal Ectopy: None Course/Dx - Course Course Of Treatment: This patient is a 57 year old M presenting to [facility] with a chief complaint of palpitations and abdominal pain since 2 days ago. Labs reviewed and are WNL. CT A/P shows no acute process. Results dicussed with patient. He reports feeling better and is HD stable and safe for dc home with return precautions and will follow up with his PCP Assessment/Plan: Patient will be discharged and follow up from PCP. The patient is agreeable with this plan. - Diagnoses Provider Diagnoses: Palpitations, Abdominal pain Discharge - Sign-Out/Discharge Documenting (check all that apply): Discharge/Admit/Transfer - Discharge Plan Condition: Stable Disposition: HOME Patient Education Materials: Heart Palpitations (ED), Acute Abdominal Pain (ED) Referrals: Akin Kang MD [Primary Care Provider] - 3 Days Additional Instructions: RETURN TO THE EMERGENCY DEPARTMENT FOR CHANGING OR WORSENING SYMPTOMS. - Billing Disposition and Condition Condition: STABLE Disposition: HOME The documentation as recorded by the Radha hobbs Jason accurately reflects the service I personally performed and the decisions made by , Cheikh Craig MD.
== END 2017-08-20 19:39 | disposition home or self-care (01) ==
LOC: ED 16:51
DX: R10.9 Unspecified abdominal pain (principal); R00.2 Palpitations; Z87.891 Personal history of nicotine dependence
CPT/HCPCS: 36415; 71045; 74176; 80053; 83605; 84439; 84443; 84484; 85025; 85610; 85730; 93005; 96360; 99283

== ENCOUNTER 2017-10-27 02:13 | Emergency (ER) | payer BC, MEDICAID ==
[2017-10-27] MEDS ORDERED: NS 0.9% 1000 ML* 1,000 ML IV ONE (04:02)
[2017-10-27] MEDS ORDERED: Metoclopramide IV* 5 MG/ML 2 ML VIAL IV SLOW PU ONE (04:03)
[2017-10-27 04:35] LABS: ABS Basophils 0 10^3/ul (0-0.2); ABS Eosinophils 0.1 10^3/ul (0-0.6); ABS Lymphocytes 1.5 10^3/ul (1.0-4.8); ABS Monocytes 0.6 10^3/ul (0-0.8); ABS Neutrophils 3.4 10^3/ul (1.5-7.7); ABS Nucleated RBC 0 10^3/ul; Eosinophil % 1.8 % (0-6); Hematocrit 42 % (42-52); Hemoglobin 14.3 g/dl (14.0-18.0); Lymphocyte % 26.8 % (25-47); Mean Corpuscular HGB Conc 34 g/dl (31-36); Mean Corpuscular Hemoglobin 30 pg (27-31); Mean Corpuscular Volume 89 fL (80-94); Mean Platelet Volume 6.6 um3 (7.4-10.4); Nucleated Red Blood Cells % 0; Platelet Count 182 10^3/ul (150-450); Red Blood Count 4.73 10^6/ul (4.00-5.40); Red Cell Distribution Width 14 % (10.5-15); White Blood Count 5.7 10^3/ul (3.5-10.8)
[2017-10-27] MEDS: Morphine VIAL* 4 MG/ML VIAL (1 ml vial) IV ONE ×2 (04:46→04:54)
[2017-10-27] MEDS ORDERED: Ketorolac INJ* 30 MG/ML 1 ML VIAL IV PUSH ONE (04:50)
[2017-10-27 04:55] LABS: EGFR Non-African American 79.2 (>60)
--- NOTE | 2017-10-27 06:22 | ED ---
Lauryn Couch SooYoung, scribed for Mary Smith MD on 10/27/17 at 0401 . Abdominal Pain/Male - HPI Summary HPI Summary: A 57 y/o M presents to ED with abd pain that woke him from sleep onset last night. Pain described as pressure. Pt has had c diff 3x since Mar 2017. Associated sx: nausea, diarrhea. Denies vomiting, fever. His last BM was last night. Pt saw Dr. Guy yesterday. Pt is still taking Vancomycin, is almost finished with the 10 day course. - History of Current Complaint Chief Complaint: EDAbdPain Stated Complaint: ABD PAIN Time Seen by Provider: 10/27/17 03:48 Hx Obtained From: Patient Onset/Duration: Lasting Hours, Still Present Timing: Constant Severity Initially: Moderate Severity Currently: Severe Pain Intensity: 8 Pain Scale Used: 0-10 Numeric Location: Diffuse Character: Other: - pressure Associated Signs And Symptoms: Positive: Nausea, Diarrhea. Negative: Fever, Vomiting - Allergies/Home Medications Allergies/Adverse Reactions: Allergies Allergy/AdvReac Type Severity Reaction Status Date / Time hydromorphone Allergy Severe Altered Verified 10/27/17 02:50 Mental Status cephalexin Allergy Intermediate Hives Verified 10/27/17 02:50 erythromycin base Allergy Intermediate Hives Verified 10/27/17 02:50 Penicillins Allergy Intermediate Hives Verified 10/27/17 02:50 Tetracyclines Allergy Intermediate Hives Verified 10/27/17 02:50 sumatriptan Allergy Unknown Verified 10/27/17 02:50 Reaction Details Iodinated contrast media Allergy Unknown Unknown Uncoded 10/27/17 02:50 Reaction Details PMH/Surg Hx/FS Hx/Imm Hx Previously Healthy: No Endocrine/Hematology History: Reports: Hx Thyroid Disease - h/o thyroid storm - takes metoprolol Denies: Hx Anticoagulant Therapy, Hx Diabetes, Other Endocrine/Hematological Disorders Cardiovascular History: Reports: Hx Hypercholesterolemia, Hx Hypertension, Other Cardiovascular Problems/Disorders - ATRIAL FIB 2000 2ndry to thyroid storm Denies: Hx Angina, Hx Coronary Artery Disease, Hx Myocardial Infarction, Hx Pacemaker/ICD, Hx Valvular Heart Disease Respiratory History: Reports: Hx Asthma - exercise induced, Hx Sleep Apnea - CPAP - no humidification (working on it)., Other Respiratory Problems/Disorders - PN X 2 WINTER 2011 Denies: Hx Chronic Obstructive Pulmonary Disease (COPD) GI History: Reports: Hx Gastroesophageal Reflux Disease, Hx Hiatal Hernia, Other GI Disorders - Hx gastritis History: Reports: Hx Kidney Stones Denies: Hx Renal Disease, Other Problems/Disorders Musculoskeletal History: Reports: Hx Arthritis, Other Musculoskeletal History - DJD Sensory History: Reports: Hx Contacts or Glasses Denies: Hx Hearing Aid, Other Sensory Impairments Opthamlomology History: Reports: Hx Contacts or Glasses Denies: Other Sensory Impairments Neurological History: Reports: Hx Headaches - "sinus headaches", Hx Migraine Denies: Hx Dementia, Hx Seizures, Other Neuro Impairments/Disorders Psychiatric History: Denies: Hx Panic Disorder, Hx Substance Abuse, Other Psychiatric Issues/ Disorders - Surgical History Surgery Procedure, Year, and Place: INGUINAL HERNIA REPAIR A CHILD - Immunization History Date of Tetanus Vaccine: utd Date of Influenza Vaccine: 2015 Infectious Disease History: Yes Infectious Disease History: Reports: Hx Hepatitis, Hx Shingles Denies: Hx Clostridium Difficile, Hx Human Immunodeficiency Virus (HIV), Hx Tuberculosis, Traveled Outside the [place] in Last 30 Days - Family History Known Family History: Positive: Hypertension - Social History Occupation: Employed Part-time Lives: Alone Alcohol Use: None Alcohol Amount: quit 1985 Hx Substance Use: Yes - none currently Substance Use Type: Reports: None Substance Use Comment - Amount & Last Used: quit 1985 Hx Tobacco Use: Yes - not currently Smoking Status (MU): Former Smoker Review of Systems Negative: Fever Positive: Abdominal Pain, Diarrhea, Nausea. Negative: Vomiting All Other Systems Reviewed And Are Negative: Yes Physical Exam - Summary Physical Exam Summary: VITAL SIGNS: Reviewed. GENERAL: Patient is a well-developed and nourished MALE who is lying comfortable in the stretcher. Patient is not in any acute respiratory distress. HEAD AND FACE: No signs of trauma. No ecchymosis, hematomas or skull depressions. No sinus tenderness. EYES: PERRLA, EOMI x 2, No injected conjunctiva, no nystagmus. EARS: Hearing grossly intact. Ear canals and tympanic membranes are within normal limits. MOUTH: Oropharynx within normal limits. NECK: Supple, trachea is midline, no adenopathy, no JVD, no carotid bruit, no c- spine tenderness, neck with full ROM. CHEST: Symmetric, no tenderness at palpation LUNGS: Clear to auscultation bilaterally. No wheezing or crackles. CVS: Regular rate and rhythm, S1 and S2 present, no murmurs or gallops appreciated. ABDOMEN: Soft, non-tender. Abd distended. No rebound no guarding, and no masses palpated. Bowel sounds are normal. EXTREMITIES: FROM in all major joints, no edema, no cyanosis or clubbing. NEURO: Alert and oriented x 3. No acute neurological deficits. Speech is normal and follows commands. SKIN: Dry and warm Triage Information Reviewed: Yes Vital Signs On Initial Exam: Initial Vitals Temp Pulse Resp BP Pulse Ox 97.9 F 68 19 144/78 94 10/27/17 02:47 10/27/17 02:47 10/27/17 02:47 10/27/17 02:47 10/27/17 02:47 Vital Signs Reviewed: Yes Diagnostics - Vital Signs Vital Signs Temp Pulse Resp BP Pulse Ox 10/27/17 02:47 97.9 F 68 19 144/78 94 - Laboratory Result Diagrams: 10/27/17 04:27 10/27/17 04:27 Lab Statement: Any lab studies that have been ordered have been reviewed, and results considered in the medical decision making process. - CT A/P CT CT Interpretation: No Acute Changes - Findings: No nephrolithiasis, ureterolithiasis or obstructive uropathy. No bladder calculi. Unremarkable pancreas and gallbladder. Hepatomegaly and steatosis, also present on 08/20/17. No bowel obstruction, colitis, diverticulitis, free fluid or free air. Appy not seen with certainty. No pericecal inflammation to suggest acute appy. L lateral abdomen incompletely seen. ED physician has reviewed this report and agrees. CT Interpretation Completed By: Radiologist Re-Evaluation - Re-Evaluation 1 Re-Evaluation Time: 05:58 Change: Improved Abdominal Pain Fem Course/Dx - Course Course Of Treatment: A 57 y/o M presents to ED with abd pain that woke him from sleep onset last night. Pain described as pressure. Pt has had c diff 3x since Mar 2017. Associated sx: nausea, diarrhea. Denies vomiting, fever. His last BM was last night. Pt saw Dr. Guy yesterday. Pt is still taking Vancomycin, is almost finished with the 10 day course. C diff is negative. - Diagnoses Provider Diagnoses: Abdominal pain Discharge - Sign-Out/Discharge Documenting (check all that apply): Discharge/Admit/Transfer - DC - Discharge Plan Condition: Stable Disposition: HOME Referrals: Akin Kang MD [Primary Care Provider] - Additional Instructions: RETURN TO THE EMERGENCY DEPARTMENT FOR CHANGING OR WORSENING SYMPTOMS. The documentation as recorded by the Lauryn hobbs SooYoung accurately reflects the service I personally performed and the decisions made by Sarah caruso Abdul, MD.
[2017-10-27 06:51] VITALS: BP 124/62
--- NOTE | 2017-10-27 07:53 | RAD ---
INDICATION: Abdominal pain. COMPARISON: Comparison is made with a prior study from August 20, 2017. TECHNIQUE: A CT scan of the abdomen and pelvis was performed without intravenous and without oral contrast. Contiguous axial sections were obtained from the lung bases through the symphysis pubis. Images were reconstructed in the coronal and sagittal planes. The left lateral aspect of the abdomen is cut off on the study. FINDINGS: The lung bases are clear. No pleural effusion is present. The liver is mildly enlarged and decreased in attenuation consistent with fatty infiltration. No significant focal abnormality is seen on this noncontrast study. No calcified gallstones are seen. The spleen and pancreas appear to be within normal limits. The adrenal glands and kidneys are normal in size. No renal calculi or hydronephrosis is seen. The aorta is normal in caliber with mild calcific plaque present. No significant enlarged retroperitoneal lymph nodes are seen. The stomach, small and large bowel are nondistended. A portion of the lateral aspect of the descending colon is cut off on the study. No bowel wall thickening or inflammatory changes are seen. The appendix is not visualized. There are few scattered diverticuli within the colon without evidence for diverticulitis. No free intraperitoneal air or fluid is seen. No significant focal osseous abnormality is seen. IMPRESSION: 1. SLIGHTLY LIMITED EXAM. THE LEFT LATERAL ASPECT OF THE ABDOMEN IS CUT OFF ON THE FILM. 2. NO EVIDENCE FOR ACUTE FINDING OR CAUSE FOR THE PATIENT'S ABDOMINAL PAIN IS SEEN. 3. HEPATOMEGALY AND HEPATIC STEATOSIS.
== END 2017-10-27 06:25 | disposition home or self-care (01) ==
LOC: ED 02:13
DX: R10.9 Unspecified abdominal pain (principal); R11.0 Nausea; R19.7 Diarrhea, unspecified; R16.0 Hepatomegaly, not elsewhere classified; E05.90 Thyrotoxicosis, unspecified without thyrotoxic crisis or storm; I10 Essential (primary) hypertension; I48.91 Unspecified atrial fibrillation; J45.990 Exercise induced bronchospasm; G47.30 Sleep apnea, unspecified; K21.9 Gastro-esophageal reflux disease without esophagitis; Z87.891 Personal history of nicotine dependence; Z88.0 Allergy status to penicillin; Z88.1 Allergy status to other antibiotic agents; Z88.5 Allergy status to narcotic agent; Z91.041 Radiographic dye allergy status; Z79.899 Other long term (current) drug therapy
CPT/HCPCS: 36415; 74176; 80053; 83605; 83690; 83735; 85025; 86140; 87493; 96361; 96374; 96375; 99282; J1885; J2270; J2765

== ENCOUNTER 2017-11-16 08:16 | Emergency (ER) | payer BC, MEDICAID ==
[2017-11-16] MEDS ORDERED: NS 0.9% 1000 ML* 1,000 ML IV ONE (08:28)
[2017-11-16 08:42] VITALS: BP 145/73
--- NOTE | 2017-11-16 08:53 | ED ---
Palpitations / Dysrhythmia - HPI Summary HPI Summary: Patient is a 57-year-old male who presents emergency department for palpitations that started yesterday. Patient denies chest pain or difficulty breathing. Denies recent illness, cough. He does note abdominal bloating. Patient states he has a history of thyroid storm and A. fib. He is currently not on any rate controlling medications and is not anticoagulated. He does take an aspirin daily. Past medical history of obesity, hypothyroidism, high cholesterol, gastritis, hiatal hernia. Pt. states that he has had c diff several times this year and started to have water diarrhea a few days ago. He has never had a heart attack. Symptoms are moderate in severity. No current modifying factors. 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 - History of Current Complaint Chief Complaint: EDDysrhythmPalp Time Seen by Provider: 11/16/17 08:28 Hx Obtained From: Patient - Allergy/Home Medications Allergies/Adverse Reactions: Allergies Allergy/AdvReac Type Severity Reaction Status Date / Time hydromorphone Allergy Severe Altered Verified 11/16/17 08:20 Mental Status cephalexin Allergy Intermediate Hives Verified 11/16/17 08:20 erythromycin base Allergy Intermediate Hives Verified 11/16/17 08:20 Penicillins Allergy Intermediate Hives Verified 11/16/17 08:20 Tetracyclines Allergy Intermediate Hives Verified 11/16/17 08:20 sumatriptan Allergy Unknown Verified 11/16/17 08:20 Reaction Details Iodinated contrast media Allergy Unknown Unknown Uncoded 11/16/17 08:20 Reaction Details Home Medications: Home Medications Acetaminophen TAB* [Tylenol TAB*] 650 mg PO Q4H PRN 11/16/17 [History Confirmed 11/16/17] Epleronone (NF) [Inspra (NF)] 50 mg PO DAILY 11/16/17 [History Confirmed ] Levothyroxine TAB* [Synthroid TAB*] 200 mcg PO DAILY 11/16/17 [History Confirmed 11/16/17] Magnesium Oxide TAB* [MagOx 400 TAB*] 400 mg PO BID 11/16/17 [History Confirmed 11/16/17] Ranitidine TAB (NF) [Zantac TAB (NF)] 75 mg PO DAILY 11/16/17 [History Confirmed 11/16/17] Rosuvastatin (NF) [Crestor (NF)] 2.5 mg PO DAILY 11/16/17 [History Confirmed ] Sertraline* [Zoloft*] 100 mg PO DAILY 11/16/17 [History Confirmed 11/16/17] amLODIPine TAB* [Norvasc 5 mg TAB*] 2.5 mg PO BID 11/16/17 [History Confirmed ] PMH/Surg Hx/FS Hx/Imm Hx Previously Healthy: Yes Endocrine/Hematology History: Reports: Hx Thyroid Disease - h/o thyroid storm - takes metoprolol Denies: Hx Anticoagulant Therapy, Hx Diabetes, Other Endocrine/Hematological Disorders Cardiovascular History: Reports: Hx Hypercholesterolemia, Hx Hypertension, Other Cardiovascular Problems/Disorders - ATRIAL FIB 2000 2ndry to thyroid storm Denies: Hx Angina, Hx Coronary Artery Disease, Hx Myocardial Infarction, Hx Pacemaker/ICD, Hx Valvular Heart Disease Respiratory History: Reports: Hx Asthma - exercise induced, Hx Sleep Apnea - CPAP - no humidification (working on it)., Other Respiratory Problems/Disorders - PN X 2 WINTER 2011 Denies: Hx Chronic Obstructive Pulmonary Disease (COPD) GI History: Reports: Hx Gastroesophageal Reflux Disease, Hx Hiatal Hernia, Other GI Disorders - Hx gastritis History: Reports: Hx Kidney Stones Denies: Hx Renal Disease, Other Problems/Disorders Musculoskeletal History: Reports: Hx Arthritis, Other Musculoskeletal History - DJD Sensory History: Reports: Hx Contacts or Glasses Denies: Hx Hearing Aid, Other Sensory Impairments Opthamlomology History: Reports: Hx Contacts or Glasses Denies: Other Sensory Impairments Neurological History: Reports: Hx Headaches - "sinus headaches", Hx Migraine Denies: Hx Dementia, Hx Seizures, Other Neuro Impairments/Disorders Psychiatric History: Denies: Hx Panic Disorder, Hx Substance Abuse, Other Psychiatric Issues/ Disorders - Surgical History Surgery Procedure, Year, and Place: INGUINAL HERNIA REPAIR A CHILD - Immunization History Date of Tetanus Vaccine: utd Date of Influenza Vaccine: 2015 Infectious Disease History: No Infectious Disease History: Reports: Hx Hepatitis, Hx Shingles Denies: Hx Clostridium Difficile, Hx Human Immunodeficiency Virus (HIV), Hx Tuberculosis, Traveled Outside the [place] in Last 30 Days - Family History Known Family History: Positive: Hypertension - Social History Occupation: Employed Full-time Lives: With Family Alcohol Use: None Alcohol Amount: quit 1985 Hx Substance Use: Yes - none currently Substance Use Type: Reports: None Substance Use Comment - Amount & Last Used: quit 1985 Hx Tobacco Use: Yes - not currently Smoking Status (MU): Former Smoker Review of Systems Constitutional: Negative Negative: Fever, Chills Eyes: Negative ENT: Negative Positive: Palpitations Respiratory: Negative Negative: Shortness Of Breath, Cough Positive: Diarrhea. Negative: Vomiting Positive: other - Chronic pain Neurological: Negative All Other Systems Reviewed And Are Negative: Yes Physical Exam Triage Information Reviewed: Yes Vital Signs On Initial Exam: Initial Vitals Temp Pulse Resp BP Pulse Ox 97.6 F 80 17 157/79 96 11/16/17 08:18 11/16/17 08:18 11/16/17 08:18 11/16/17 08:18 11/16/17 08:18 Vital Signs Reviewed: Yes Appearance: Positive: Well-Appearing - Patient sitting up in bed in no acute distress. Skin: Positive: Warm, Dry Head/Face: Positive: Normal Head/Face Inspection Eyes: Positive: Normal Neck: Positive: Supple Respiratory/Lung Sounds: Positive: Clear to Auscultation, Breath Sounds Present Cardiovascular: Positive: Normal, RRR Abdomen Description: Positive: Nontender, Soft Musculoskeletal: Positive: Normal Neurological: Positive: Normal, CN Intact II-III Psychiatric: Positive: Affect/Mood Appropriate Diagnostics - Vital Signs Vital Signs Temp Pulse Resp BP Pulse Ox 11/16/17 08:42 97 11/16/17 08:30 70 15 95 11/16/17 08:28 72 13 145/73 96 11/16/17 08:18 97.6 F 80 17 157/79 96 - Laboratory Result Diagrams: 11/16/17 08:49 11/16/17 08:49 Lab Statement: Any lab studies that have been ordered have been reviewed, and results considered in the medical decision making process. Course/Dx - Course Course Of Treatment: Pt. presenting with complaints of palpitations and abd. bloating. ECG done at 0833 shows a sinus rhythm of 66bpm, normal axis, prolonged ME interval, no ST elevation or depression, similar to prior tracing. He is afebrile with stable vital signs. He has a benign abd. exam. IV fluids started and labs ordered. Blood work is unremarkable. CXR negative for acute findings per radiology. Pt. does appear to have occassional PVCs on monitor. Results discussed with pt. Did end up sending c diff culture given pt.'s bloating and new diarrhea. Advised pt. to call PCP today to schedule f.u apt. Will call if c diff is positive. To return to ER if sxs change or worsen. - Diagnoses Differential Diagnosis/HQI/PQRI: Positive: Hypokalemia, Paroxymal SVT Provider Diagnoses: Heart palpitations, Abdominal bloating Discharge - Sign-Out/Discharge Documenting (check all that apply): Patient Departure - Discharge Plan Condition: Good Disposition: HOME Prescriptions: Vancomycin CAP* 125 mg PO QID #56 cap Patient Education Materials: Heart Palpitations (ED), Gas and Bloating (ED) Forms: *Work Release Referrals: Akin Kang MD [Primary Care Provider] - Additional Instructions: Call your PCP today to schedule an appointment Continue medications as directed Will call if c. diff is positive Return to ER if symptoms change or worsen - Billing Disposition and Condition Condition: GOOD Disposition: Home
[2017-11-16 09:03] LABS: ABS Basophils 0 10^3/ul (0-0.2); ABS Eosinophils 0.1 10^3/ul (0-0.6); ABS Lymphocytes 1.8 10^3/ul (1.0-4.8); ABS Monocytes 0.6 10^3/ul (0-0.8); ABS Neutrophils 3.7 10^3/ul (1.5-7.7); ABS Nucleated RBC 0 10^3/ul; Eosinophil % 1.8 % (0-6); Hematocrit 42 % (42-52); Hemoglobin 14.1 g/dl (14.0-18.0); Lymphocyte % 29.1 % (25-47); Mean Corpuscular HGB Conc 34 g/dl (31-36); Mean Corpuscular Hemoglobin 30 pg (27-31); Mean Corpuscular Volume 88 fL (80-94); Mean Platelet Volume 6.6 um3 (7.4-10.4); Nucleated Red Blood Cells % 0; Platelet Count 193 10^3/ul (150-450); Red Blood Count 4.74 10^6/ul (4.00-5.40); Red Cell Distribution Width 13 % (10.5-15); White Blood Count 6.2 10^3/ul (3.5-10.8)
[2017-11-16 09:27] LABS: EGFR Non-African American 71.5 (>60)
--- NOTE | 2017-11-16 09:37 | RAD ---
INDICATION: Chest pain. COMPARISON: Comparison is made with a prior study from August 20, 2017. TECHNIQUE: 2 portable films of the chest were obtained upright. FINDINGS: Cardiac and mediastinal contours appear to be within normal limits. The lungs are clear. No pleural effusion is seen. IMPRESSION: NO EVIDENCE FOR ACUTE DISEASE.
== END 2017-11-16 10:44 | disposition home or self-care (01) ==
LOC: ED 08:16
DX: R00.2 Palpitations (principal); B96.89 Other specified bacterial agents as the cause of diseases classified elsewhere; E05.91 Thyrotoxicosis, unspecified with thyrotoxic crisis or storm; E78.00 Pure hypercholesterolemia, unspecified; I10 Essential (primary) hypertension; I48.91 Unspecified atrial fibrillation; G47.30 Sleep apnea, unspecified; K21.9 Gastro-esophageal reflux disease without esophagitis; Z87.891 Personal history of nicotine dependence; R14.0 Abdominal distension (gaseous); R07.9 Chest pain, unspecified
CPT/HCPCS: 36415; 71045; 80053; 83735; 84443; 84484; 85025; 87493; 93005; 96360; 99282

== ENCOUNTER 2018-02-19 01:08 | Emergency (ER) | payer BC, OTHER ==
[2018-02-19 01:43] LABS: ABS Basophils 0.1 10^3/ul (0-0.2); ABS Eosinophils 0.1 10^3/ul (0-0.6); ABS Lymphocytes 2.4 10^3/ul (1.0-4.8); ABS Monocytes 0.5 10^3/ul (0-0.8); ABS Neutrophils 4.7 10^3/ul (1.5-7.7); ABS Nucleated RBC 0 10^3/ul; Eosinophil % 1.8 % (0-6); Hematocrit 43 % (42-52); Hemoglobin 14.7 g/dl (14.0-18.0); Lymphocyte % 30.3 % (25-47); Mean Corpuscular HGB Conc 34 g/dl (31-36); Mean Corpuscular Hemoglobin 30 pg (27-31); Mean Corpuscular Volume 89 fL (80-94); Mean Platelet Volume 6.6 um3 (7.4-10.4); Nucleated Red Blood Cells % 0.1; Platelet Count 211 10^3/ul (150-450); Red Blood Count 4.89 10^6/ul (4.00-5.40); Red Cell Distribution Width 14 % (10.5-15); White Blood Count 7.8 10^3/ul (3.5-10.8)
--- OUTSIDE RECORDS SUMMARY | 2018-02-19 01:47 | XMS REPORT ---
:1960 External Reference #:[id number] Author Organization [facility] Address [address] [place] [address] [place] [address] Phone [phone] Care Team Providers Name Role Phone Akin Kang MD Primary Care Physician Unavailable Payers Type Date Identification Numbers Payment Provider Subscriber Commercial Effective: Policy Number: BS Ced Gomez 2017 [id number] PayID: [id number] [address] [address] [place] [address] Commercial Effective: 2017 Policy Number: [id number] Gunaaco Gomez PayID: [id number] [address] [place] [id number] Medigap Part B Effective: 2017 Policy Number: [id number] Medicaid Nargis Gomez Expires: 2017 Group Name: 1 1 [address] PayID: [id number] [place] [address] Medigap Part B Effective: 2017 Policy Number: BS Ced Gomez [id number] Expires: 2017 PayID: [id number] [address] [address] [place] [address] Medigap Part B Effective: 2017 Policy Number: [id number] Medicaid Nargis Gomez Expires: 2017 Group Name: 1 1 [address] PayID: [id number] [place] [address] Problems Date Description Provider Status Onset: 07/31/2014 Obstructive sleep apnea of adult Tabitha Lopez DNP, RN, Active [employer] Onset: 03/19/2016 Essential hypertension Akin Kang M.D. Active Onset: 03/19/2016 Hyperlipidemia Akin Kang M.D. Active Onset: 03/19/2016 Gastroesophageal reflux disease Akin Kang M.D. Active Onset: 03/19/2016 Obstructive sleep apnea syndrome Akin Kang M.D. Active Onset: 03/19/2016 Kidney stone Akin Kang M.D. Active Onset: 04/30/2016 Abnormal glucose level Akin Kang M.D. Active Onset: 04/30/2016 Migraine with typical aura Akin Kang M.D. Active Onset: 04/30/2016 Morbid obesity Akin Kang M.D. Active Onset: 04/30/2016 Vitamin D deficiency Akin Kang M.D. Active Onset: 04/30/2016 Mixed hyperlipidemia Akin Kang M.D. Active Onset: 07/13/2016 Chronic viral hepatitis B without Akin Kang M.D. Active delta-agent Onset: 07/13/2016 Osteoarthritis of hip, Akin Kang M.D. Active unspecified Onset: 01/21/2017 Transient cerebral ischemia Brien Carreon M.D. Active Onset: 01/21/2017 Paroxysmal atrial fibrillation Brien Carreon M.D. Active Onset: 03/22/2017 Abnormal gait Akin Kang M.D. Active Onset: 03/22/2017 Binocular vision disorder Akin Kang M.D. Active Onset: 04/14/2017 Chronic sinusitis Akin Kang M.D. Active Onset: 04/14/2017 Hypothyroidism Akin Kang M.D. Active Onset: 05/26/2017 Headache Brien Carreon M.D. Active Family History Date Family Member(s) Problem(s) Comments General MGM thryoid issues General Diabetes General Hypertension General Heart Disease General Cancer Father from lung cancer/emphysema at age 87 ; was smoker Father Lung Cancer 5.2014: father at 87 of lung cancer after smoking. His mother at 71 of ovarian cancer. He has 4 siblings who are alive and well. 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 Cigarette Use in 1989 Cigarette Use Former Cigarette Smoker ETOH Use quit in 1985 ETOH Use Has consumed alcohol in the past Recreational Drug Use quit in 1985 Smoking Patient is a former smoker Recreational Drug Use Formerly used Cocaine pt quit in 1985 regularly Smoking Patient is a former smoker Quit in 1989, smoked for 10-15 years Recreational Drug Use Formerly used Amphetamines quit 1985 regularly Smoking Heavy tobacco smoker (more than 10 cigarettes/day) Recreational Drug Use Formerly used Barbiturates quit 1985 regularly Recreational Drug Use Formerly used Marijuana quit 1985 regularly Daily Caffeine Does Not Consume Caffeine Daily Caffeine consumes chocolate occasionally Exercise Type/Frequency Exercises sporadically General Hx Text 5.2014 never . 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 Allergies, Adverse Reactions, Alerts Date Description Reaction Status Severity Comments 07/31/2014 Tricyclic Antidepressants active 09/11/2014 Penicillin Anaphylaxis active Moderate to Severe 09/11/2014 Keflex Anaphylaxis active Moderate to Severe 09/11/2014 Tetracycline Anaphylaxis active Moderate to Severe 09/11/2014 Erythromycin Urticaria active Moderate 05/26/2017 Imitrex active Medications Medication Date Status Form Strength Qnty SIG Indications Ordering Provider Co Q10 10/18/ Active Capsules 100mg 30cap take 1 by E78.5 Jayshree S. 2017 s mouth 3 x Foster, week N.P. Meclizine HCL 04/14/ Active Tablets 12.5mg 60tab 1-2 tab two R26.81 Minden 2016 s times a day Pachikara, as needed M.D. Rosuvastatin 05/27/ Active Tablets 5mg 30tab 1/2 tablet E78.2 Rob Calcium 2017 s five times Farrah Dozier, per week M.D. Compression 05/27/ Active Misc 1Pair knee high E66.01 Rob Stockings 2017 closed toe angela Dominique MJoniDJoni compression -please measure for size Ketoconazole 03/19/ Active Cream 2% 120gm apply twice B35.6 Minden 2016 a day as Pachika, needed M.D. Clonazepam 03/19/ Active Tablets 0.5mg 10tab 1 tab at G47.09 Darius 2016 s bedtime as Will Villalobos, needed M.DJoni,FACP Amlodipine 03/31/ Active Tablets 2.5mg 90tab 1 tab twice I10 Jayshree SJoni Besylate 2015 s daily Arnie Rodríguez For Men 03/12/ Active Misc 2Pair 1 pair daily I87.2 Rob 15-20MMHG/Knee 2014 as needed High Catina/Closed M.Will Toe/Large Magnesium Oxide 11/19/ Active Tablets 400mg 90tab 1 by mouth Rob 2014 s twice daily Farrah Dozier M.D. Inspra 11/01/ Active Tablets 25mg 180ta 2 by mouth Rob 2014 bs every day Farrah Dozier M.D. Aspir-81 07/30/ Active Tablets 81mg 1 by mouth Unknown 2014 DR every day Levothyroxine 07/30/ Active Tablets 200mcg 30tab 1 by mouth Akin Sodium 2014 s every day Balbir Kang Gas-X Extra / Active Capsules 125mg one cap by Unknown Strength 0000 mouth every 6 hours as needed for abdominal pain Stress 500 / Active Tablets PO once Unknown B-Complex/Zinc 0000 daily Acetaminophen / Active Tablets 500mg 1 gm po prn Unknown 0000 Vitamin D3 / Active 2000Iu 1 tablet Unknown 0000 daily Guaifenesin / Active 10 cc every Unknown 0000 4 hrs as needed Zantac / Active Tablets 150mg 1 by mouth Unknown 0000 every day prn Riboflavin / Active Capsules 400mg 1 po qd, pt Unknown 0000 to slowly titrate dose Zoloft / Active Tablets 100mg 45tab 1 1/2 tabs Minden 0000 s by mouth Pachika, daily M.D. Golytely 01/10/ Hx Solution 236gm 1unit drink / Yovani Solis 2018 - Rec s bottle the [place]queen, 01/30/ night before M.D. 2018 procedure Vancomycin HCL 10/25/ Hx Capsules 125mg 56cap 1 po 4 times A04.71 Yovani Solis 2018 - s daily Macqueen, 01/30/ M.D. 2018 Metronidazole 10/11/ Hx Tablets 500mg 30tab 1 by mouth Akin 2018 - s three timses Pachikara, 10/11/ a day/no M.D. 2018 alcohol until 5 days after you are done. Vancomycin HCL 10/11/ Hx Capsules 125mg 56cap 1 cap 4 Akin 2018 - s times a day Pachikara, 10/25/ x14 days M.D. 2017 Vancocin HCL 08/04/ Hx Capsules 125mg 40cap 1 tab qid Darius 2018 - s for 10 days DJoni Villalobos, 08/14/ M.D.,FACP 2018 Metronidazole 08/03/ Hx Tablets 500mg 63tab take one by Telly 2018 - s mouth three Teressa, 08/04/ times daily M.D. 2018 for 21 days Metronidazole 06/24/ Hx Tablets 500mg 21tab three times Telly 2018 - s a day for 21 Teressa, 07/15/ days M.D. 2017 Diovan 06/08/ Hx Tablets 40mg 30tab 1 /2 mouth I10 Rob 2017 Anabella s every day Farrah Dozier, 06/24/ M.D. 2017 Valium 04/14/ Hx Tablets 5mg 2tabs use 1h R26.81 Akin 2016 - before mri, Pachika, August repeat M.D. 2017 after 1hour if needed Clindamycin HCL 03/22/ Hx Capsules 300mg 40cap 1 tabs by J01.90 Akin 2017 - s mouth every Pachikara, 05/24/ 6h M.D. 2017 Lamisil 06/28/ Hx Tablets 250mg 30tab 1 tab by Akin 2017 - s mouth every Pachikara, 03/22/ day for 12 M.D. 2017 wks Pt states he did not start (01/21/17) plans on taking in the future Clotrimazole 06/25/ Hx Cream 1% 45gm apply twice B37.9 Akin 2016 - daily (not Pachikara, 01/20/ using) M.D. 2016 Protonix 08/11/ Hx Tablets 20mg 30tab 1 by mouth Akin 2015 Anabella boone every day Pachika, 03/19/ (Pt states M.D. 2015 he is taking it only as prn) Crestor 04/07/ Hx Tablets 5mg 30tab 1/2 tab by Rob 2014 - s mouth Farrah Dozier, 03/03/ mondays, M.D. 2016 wednesdays, fridays only (on hold-per pt) Zocor 03/31/ Hx Tablets 10mg 30tab Take 1 tab Rob 2014 - s po QHS F. Waltertereza, 04/07/ M.D. 2014 Effer-K 11/01/ Hx Tablets 20Meq 100ta 1 by mouth 427.69 Rob 2014 - Efferv bs once a day Jemal. Waltertereza, 09/29/ hold as of M.D. 2016 4.6.16 Toprol XL 11/01/ Hx Tablets 25mg 45tab 1/2 tab by Rob 2014 - ER 24HR s mouth every F. Winstonr, 08/03/ day M.D. 2018 (martir) Effer-K 09/11/ Hx Tablets 20Meq 60tab 1 by mouth 427.69 Rob 2014 - Efferv s twice day F. Tasia, .D. 2014 Toprol XL 09/11/ Hx Tablets 25mg 200ta 2 by mouth Rob 2014 - ER 24HR bs qd . Tasia, .D. 2014 Tylenol 07/31/ Hx as needed Tabitha 2014 - Jessica, 03/11/ NITISH, RN, 2014 [employer]ITIVE [employer] Toprol XL 07/30/ Hx Tablets 75mg 1 by mouth Unknown 2014 - ER 24HR every day 2014 Zoloft 07/30/ Hx Tablets 150mg 1 by mouth Unknown 2014 - every day 2014 Pantoprazole 07/30/ Hx Tablets 40mg 1 by mouth Unknown Sodium 2014 - DR every day 2014 Zocor 07/30/ Hx Tablets 20mg 1 by mouth Unknown 2014 - every night 03/11/ at bedtime 2014 Stress Tab 07/30/ Hx Tablets every day by Unknown 2015 - mouth 2014 Levothyroxine / Hx Tablets 200mg 1 by mouth Unknown Sodium - every day 2014 Toprol XL / Hx Tablets 75mg 1 by mouth Unknown 0000 - ER 24HR every day 2014 Protonix / Hx Tablets 40mg 1 by mouth Rob - DR every other F. Tasia, M.D. 2016 Zocor 00/00/ Hx Tablets 20mg 1 by mouth Unknown 0000 - every night 03/31/ at bedtime 2014 hold as of 15 Aspir-81 00/ Hx Tablets 81mg 1 by mouth Unknown 0000 - DR every day 2014 Apap 00/ Hx Tablets 325mg 2 tabs by Unknown 0000 - mouth every 05/14/ 6h as needed 2014 pain Levothyroxine / Hx Tablets 200mcg Unknown Sodium 0000 - 2017 Acidophilus / Hx Tablets 1 by mouth Unknown 0000 - every day 2017 Immunizations CPT Code Status Date Vaccine Lot # [id number] Given 07/31/2014 Fluvirin Im 3Yrs And Older Vital Signs Date Vital Result Comment 01/31/2018 Height 71 inches 5'11" Heart Rate 60 /min BP Systolic Sitting 130 mmHg BP Diastolic Sitting 70 mmHg Respiratory Rate 16 /min Ejection Fraction 55-60% 10/29/16 echo 01/04/2018 Height 71 inches 5'11" Weight 370.38 lb Heart Rate 60 /min BP Systolic Sitting 134 mmHg BP Diastolic Sitting 70 mmHg Respiratory Rate 14 /min Body Temperature 98.2 F BMI (Body Mass Index) 51.7 kg/m2 10/25/2017 Height 71 inches 5'11" Weight 366.50 lb Heart Rate 72 /min BP Systolic Sitting 126 mmHg BP Diastolic Sitting 62 mmHg Respiratory Rate 14 /min Body Temperature 97.9 F BMI (Body Mass Index) 51.1 kg/m2 10/18/2017 Height 71 inches 5'11" Weight 365.50 lb Heart Rate 70 /min BP Systolic Sitting 132 mmHg Lianne large cuff BP Diastolic Sitting 70 mmHg Lianne large cuff BP Systolic Standing 130 mmHg Lianne large cuff BP Diastolic Standing 68 mmHg Lianne large cuff Respiratory Rate 18 /min BMI (Body Mass Index) 51.0 kg/m2 08/03/2017 Weight 360.38 lb Heart Rate 68 /min BP Systolic Sitting 132 mmHg BP Diastolic Sitting 82 mmHg Body Temperature 97.9 F O2 % BldC Oximetry 96 % 07/29/2017 Height 71 inches 5'11" Weight 369.00 lb with shoes Heart Rate 64 /min BP Systolic Sitting 124 mmHg Lue lg cuff BP Diastolic Sitting 70 mmHg Lue lg cuff BP Systolic Standing 140 mmHg Lue lg cuff BP Diastolic Standing 86 mmHg Lue lg cuff Respiratory Rate 16 /min BMI (Body Mass Index) 51.5 kg/m2 Ejection Fraction 55-60% date 10/29/2016 ECHO 07/01/2017 Height 71 inches 5'11" Weight 368.00 lb with shoes Heart Rate 64 /min BP Systolic Sitting 146 mmHg Lue lrg cuff BP Diastolic Sitting 76 mmHg Lue lrg cuff BP Systolic Standing 140 mmHg Lue lrg cuff BP Diastolic Standing 80 mmHg Lue lrg cuff Respiratory Rate 18 /min BMI (Body Mass Index) 51.3 kg/m2 Ejection Fraction 55-60% 10/29/2016-echo 06/24/2017 Weight 366.00 lb Heart Rate 73 /min BP Systolic Sitting 150 mmHg BP Diastolic Sitting 74 mmHg Body Temperature 98.7 F O2 % BldC Oximetry 95 % 06/08/2017 Height 71 inches 5'11" Weight 369.25 lb with shoes Heart Rate 62 /min BP Systolic 138 mmHg L/Arm LG Cuff BP Diastolic 80 mmHg L/Arm LG Cuff BMI (Body Mass Index) 51.5 kg/m2 Ejection Fraction 55-60% Echocardiogram 10/29/2016 05/26/2017 Height 71 inches 5'11" Weight 350.00 lb Heart Rate 60 /min BP Systolic 140 mmHg BP Diastolic 78 mmHg Respiratory Rate 16 /min BMI (Body Mass Index) 48.8 kg/m2 04/14/2017 Weight 361.38 lb Heart Rate 60 /min BP Systolic Sitting 132 mmHg BP Diastolic Sitting 72 mmHg O2 % BldC Oximetry 96 % 03/22/2017 Weight 361.50 lb Heart Rate 60 /min BP Systolic Sitting 142 mmHg BP Diastolic Sitting 78 mmHg Body Temperature 97.7 F O2 % BldC Oximetry 96 % 03/15/2017 Height 71 inches 5'11" Weight 350.00 lb BP Systolic 148 mmHg BP Diastolic 78 mmHg Respiratory Rate 15 /min Pain Level 4 BMI (Body Mass Index) 48.8 kg/m2 02/08/2017 Height 71 inches 5'11" Weight 363.25 lb with shoes Heart Rate 70 /min BP Systolic Sitting 146 mmHg LA lrg cuff BP Diastolic Sitting 76 mmHg LA lrg cuff BMI (Body Mass Index) 50.7 kg/m2 Ejection Fraction 55%-60% echo 10/29/16 01/21/2017 Height 71 inches 5'11" Weight 350.00 lb Heart Rate 64 /min BP Systolic 124 mmHg BP Diastolic 80 mmHg Respiratory Rate 16 /min BMI (Body Mass Index) 48.8 kg/m2 12/02/2016 Height 71 inches 5'11" Weight 360.00 lb Heart Rate 68 /min BP Systolic Sitting 130 mmHg BP Diastolic Sitting 90 mmHg Respiratory Rate 16 /min BMI (Body Mass Index) 50.2 kg/m2 11/05/2016 Weight 360.00 lb with shoes Heart Rate 62 /min BP Systolic Sitting 126 mmHg Rue lg cuff BP Diastolic Sitting 80 mmHg Rue lg cuff BP Systolic Standing 134 mmHg Rue lg cuff BP Diastolic Standing 70 mmHg Rue lg cuff Respiratory Rate 16 /min Ejection Fraction 55-60% date 10/29/16 ECHO 10/12/2016 Height 71 inches 5'11" Weight 365.00 lb w/shoes Heart Rate 56 /min BP Systolic 128 mmHg LA lrg cuff BP Diastolic 84 mmHg LA lrg cuff BMI (Body Mass Index) 50.9 kg/m2 Ejection Fraction 45-50% Echo 04/20/16 07/13/2016 Weight 359.25 lb Heart Rate 64 /min BP Systolic Sitting 148 mmHg BP Diastolic Sitting 80 mmHg Body Temperature 98.0 F O2 % BldC Oximetry 97 % 06/25/2016 Height 70 inches 5'10" Weight 358.12 lb Heart Rate 70 /min BP Systolic Sitting 152 mmHg BP Diastolic Sitting 78 mmHg Body Temperature 97.9 F O2 % BldC Oximetry 96 % BMI (Body Mass Index) 51.4 kg/m2 05/27/2016 Height 70 inches 5'10" Weight 365.00 lb Heart Rate 66 /min BP Systolic Sitting 146 mmHg LA lrg cuff BP Diastolic Sitting 80 mmHg LA lrg cuff BMI (Body Mass Index) 52.4 kg/m2 Ejection Fraction 45% - 50% echo 04/20/16 04/30/2016 Weight 367.38 lb Heart Rate 69 /min BP Systolic Sitting 144 mmHg BP Diastolic Sitting 78 mmHg Body Temperature 98.0 F O2 % BldC Oximetry 97 % 03/19/2016 Height 70 inches 5'10" Weight 371.00 lb Heart Rate 66 /min BP Systolic Sitting 110 mmHg BP Diastolic Sitting 50 mmHg O2 % BldC Oximetry 98 % BMI (Body Mass Index) 53.2 kg/m2 03/03/2016 Weight 371.75 lb with shoes Heart Rate 64 /min BP Systolic Sitting 158 mmHg Ra lrg cuff BP Diastolic Sitting 84 mmHg Ra lrg cuff BP Systolic Standing 128 mmHg la repeat sitting BP Diastolic Standing 68 mmHg la repeat sitting Ejection Fraction 51% NLM 11/01/14 10/13/2015 Weight 352.00 lb Heart Rate 64 /min BP Systolic Sitting 151 mmHg BP Diastolic Sitting 76 mmHg Body Temperature 98.2 F 09/30/2015 Height 70 inches 5'10" Weight 359.00 lb with shoes Heart Rate 66 /min BP Systolic 142 mmHg LA lrg cuff BP Diastolic 84 mmHg LA lrg cuff BMI (Body Mass Index) 51.5 kg/m2 Ejection Fraction 51% NLM 11/01/14 08/29/2015 Height 70 inches 5'10" Weight 359.00 lb with out shoes Heart Rate 60 /min BP Systolic Sitting 140 mmHg Ra lg cuff BP Diastolic Sitting 80 mmHg Ra lg cuff BP Systolic Standing 144 mmHg Ra lg cuff BP Diastolic Standing 80 mmHg Ra lg cuff Respiratory Rate 16 /min BMI (Body Mass Index) 51.5 kg/m2 Ejection Fraction 55-60% date 10/08/14 ECHO 07/30/2015 Height 70 inches 5'10" Weight 359.75 lb with shoes Heart Rate 68 /min BP Systolic Sitting 142 mmHg LA, large BP Diastolic Sitting 82 mmHg LA, large BP Systolic Recheck 132 mmHg la repeat sitting BP Diastolic Recheck 83 mmHg la repeat sitting BMI (Body Mass Index) 51.6 kg/m2 Ejection Fraction 51% NLM 11/01/14 05/26/2015 Height 70 inches 5'10" Weight 359.75 lb Heart Rate 62 /min BP Systolic Sitting 152 mmHg LA, large cuff BP Diastolic Sitting 84 mmHg LA, large cuff BMI (Body Mass Index) 51.6 kg/m2 Ejection Fraction 55-60% echo 10/08/14 03/31/2015 Height 70 inches 5'10" Weight 362.50 lb w/o shoes Heart Rate 60 /min reg BP Systolic Sitting 176 mmHg Lue, lg cuff BP Diastolic Sitting 96 mmHg Lue, lg cuff BP Systolic Standing 174 mmHg Lue BP Diastolic Standing 94 mmHg Lue Respiratory Rate 18 /min BMI (Body Mass Index) 52.0 kg/m2 Ejection Fraction 55-60% as of 10/08/14 echo 03/12/2015 Height 70 inches 5'10" Weight 365.00 lb w/o shoes Heart Rate 70 /min BP Systolic Sitting 144 mmHg LA lg cuff BP Diastolic Sitting 84 mmHg LA lg cuff BMI (Body Mass Index) 52.4 kg/m2 Ejection Fraction 51 Nem 11/01/14 11/29/2014 Height 70 inches 5'10" Weight 367.00 lb no shoes Heart Rate 60 /min BP Systolic Sitting 138 mmHg LA, Lg cuff BP Diastolic Sitting 86 mmHg LA, Lg cuff BP Systolic Standing 132 mmHg LA BP Diastolic Standing 86 mmHg LA Respiratory Rate 16 /min BMI (Body Mass Index) 52.7 kg/m2 Ejection Fraction 55-60% 10/08/2014 09/11/2014 Height 70 inches 5'10" Weight 359.75 lb with shoes Heart Rate 78 /min BP Systolic 156 mmHg Ra lg cuff BP Diastolic 80 mmHg Ra lg cuff BP Systolic Sitting 148 mmHg LA reg cuff BP Diastolic Sitting 76 mmHg LA reg cuff BP Systolic Standing 144 mmHg LA reg cuff BP Diastolic Standing 74 mmHg LA reg cuff Respiratory Rate 17 /min BMI (Body Mass Index) 51.6 kg/m2 Ejection Fraction 50-55% date 03/15/08 07/31/2014 Height 70 inches 5'10" Weight 369.12 lb with shoes on Heart Rate 67 /min BP Systolic Sitting 146 mmHg BP Diastolic Sitting 82 mmHg Respiratory Rate 20 /min Body Temperature 97.6 F O2 % BldC Oximetry 98 % BMI (Body Mass Index) 53.0 kg/m2 Neck Circumference in inches 19 Results Test Date Test Result H/L Range Note Lipid Panel - [facility] 01/23/2018 Creatine Kinase(CK) 173 U/L 10-223 1, 2 Comp Metabolic Panel 01/23/2018 Sodium 140 mmol/L 135-145 1 Potassium 4.4 mmol/L 3.5-5.0 1 Chloride 104 mmol/L 101-111 1 Co2 Carbon Dioxide 26 mmol/L 22-32 1 Anion Gap 10 mmol/L 2-11 1 Glucose 114 mg/dL High 70-100 1 Blood Urea Nitrogen 11 mg/dL 6-24 1 Creatinine 0.94 mg/dL 0.67-1.17 1 BUN/Creatinine Ratio 11.7 8-20 1 Calcium 9.3 mg/dL 8.6-10.3 1 Total Protein 6.3 g/dL Low 6.4-8.9 1 Albumin 4.4 g/dL 3.2-5.2 1 Globulin 1.9 g/dL Low 2-4 1 Albumin/Globulin Ratio 2.3 1-3 1 Total Bilirubin 0.50 mg/dL 0.2-1.0 1 Alkaline Phosphatase 53 U/L 34-104 1 Alt 39 U/L 7-52 1 Ast 33 U/L 13-39 1 Egfr Non- 81.9 >60 1 Egfr 99.1 >60 1, 3 Lipid Profile (Trig/Chol/HDL) 01/23/2018 Triglycerides 114 mg/dL 1, 4 Cholesterol 130 mg/dL 1, 5 HDL Cholesterol 40.0 mg/dL 1, 6 LDL Cholesterol 67 mg/dL 1, 7 Laboratory test finding 01/01/2018 C Difficile PCR SEE RESULT BELOW 8 Laboratory test finding 11/16/2017 C Difficile PCR SEE RESULT BELOW 9 Laboratory test finding 10/27/2017 C Difficile PCR SEE RESULT BELOW 10 CBC Auto Diff 10/27/2017 White Blood Count 5.7 10^3/uL 3.5-10.8 Red Blood Count 4.73 10^6/uL 4.00-5.40 Hemoglobin 14.3 g/dL 14.0-18.0 Hematocrit 42 % 42-52 Mean Corpuscular Volume 89 fL 80-94 Mean Corpuscular Hemoglobin 30 pg 27-31 Mean Corpuscular HGB Conc 34 g/dL 31-36 Red Cell Distribution Width 14 % 10.5-15 Platelet Count 182 10^3/uL 150-450 Mean Platelet Volume 6.6 um3 Low 7.4-10.4 Abs Neutrophils 3.4 10^3/uL 1.5-7.7 Abs Lymphocytes 1.5 10^3/uL 1.0-4.8 Abs Monocytes 0.6 10^3/uL 0-0.8 Abs Eosinophils 0.1 10^3/uL 0-0.6 Abs Basophils 0 10^3/uL 0-0.2 Abs Nucleated RBC 0 10^3/uL Granulocyte % 60.3 % 38-83 Lymphocyte % 26.8 % 25-47 Monocyte % 10.4 % High 0-7 Eosinophil % 1.8 % 0-6 Basophil % 0.7 % 0-2 Nucleated Red Blood Cells % 0 Laboratory test finding 10/27/2017 Lactic Acid 1.5 mmol/L 0.5-2.0 11 Comp Metabolic Panel 10/27/2017 Sodium 137 mmol/L 135-145 Potassium 4.3 mmol/L 3.5-5.0 Chloride 105 mmol/L 101-111 Co2 Carbon Dioxide 25 mmol/L 22-32 Anion Gap 7 mmol/L 2-11 Glucose 124 mg/dL High 70-100 Blood Urea Nitrogen 14 mg/dL 6-24 Creatinine 0.97 mg/dL 0.67-1.17 BUN/Creatinine Ratio 14.4 8-20 Calcium 9.2 mg/dL 8.6-10.3 Total Protein 6.6 g/dL 6.4-8.9 Albumin 4.0 g/dL 3.2-5.2 Globulin 2.6 g/dL 2-4 Albumin/Globulin Ratio 1.5 1-3 Total Bilirubin 0.50 mg/dL 0.2-1.0 Alkaline Phosphatase 51 U/L 34-104 Alt 39 U/L 7-52 Ast 32 U/L 13-39 Egfr Non- 79.2 >60 Egfr 95.9 >60 12 Laboratory test finding 10/27/2017 Magnesium 2.0 mg/dL 1.9-2.7 Lipase 43 U/L 11.0-82.0 C Reactive Protein 2.19 mg/L <8.01 Laboratory test finding 10/10/2017 C Difficile PCR SEE RESULT BELOW 13 Laboratory test finding 08/03/2017 C Difficile PCR SEE RESULT BELOW 14 CBC Auto Diff 08/03/2017 White Blood Count 7.4 10^3/uL 3.5-10.8 Red Blood Count 5.00 10^6/uL 4.0-5.4 Hemoglobin 14.9 g/dL 14.0-18.0 Hematocrit 44 % 42-52 Mean Corpuscular Volume 89 fL 80-94 Mean Corpuscular Hemoglobin 30 pg 27-31 Mean Corpuscular HGB Conc 34 g/dL 31-36 Red Cell Distribution Width 14 % 10.5-15 Platelet Count 210 10^3/uL 150-450 Mean Platelet Volume 6.3 um3 Low 7.4-10.4 Abs Neutrophils 4.2 10^3/uL 1.5-7.7 Abs Lymphocytes 2.3 10^3/uL 1.0-4.8 Abs Monocytes 0.8 10^3/uL 0-0.8 Abs Eosinophils 0.2 10^3/uL 0-0.6 Abs Basophils 0.1 10^3/uL 0-0.2 Abs Nucleated RBC 0 10^3/uL Granulocyte % 56.2 % 38-83 Lymphocyte % 30.8 % 25-47 Monocyte % 10.1 % High 0-7 Eosinophil % 2.2 % 0-6 Basophil % 0.7 % 0-2 Nucleated Red Blood Cells % 0 Comp Metabolic Panel 08/02/2017 Sodium 139 mmol/L 139-145 15 Potassium 4.5 mmol/L 3.5-5.0 15 Chloride 104 mmol/L 101-111 15 Co2 Carbon Dioxide 27 mmol/L 22-32 15 Anion Gap 8 mmol/L 2-11 15 Glucose 107 mg/dL High 70-100 15 Blood Urea Nitrogen 11 mg/dL 6-24 15 Creatinine 0.91 mg/dL 0.67-1.17 15 BUN/Creatinine Ratio 12.1 8-20 15 Calcium 9.5 mg/dL 8.6-10.3 15 Total Protein 6.7 g/dL 6.4-8.9 15 Albumin 4.4 g/dL 3.2-5.2 15 Globulin 2.3 g/dL 2-4 15 Albumin/Globulin Ratio 1.9 1-3 15 Total Bilirubin 0.70 mg/dL 0.2-1.0 15 Alkaline Phosphatase 43 U/L 34-104 15 Alt 38 U/L 7-52 15 Ast 33 U/L 13-39 15 Egfr Non- 85.3 >60 15 Egfr 109.7 >60 15, 16 Lipid Profile (Trig/Chol/HDL) 08/02/2017 Triglycerides 149 mg/dL 15, 17 Cholesterol 175 mg/dL 15, 18 HDL Cholesterol 38.2 mg/dL 15, 19 LDL Cholesterol 107 mg/dL 15, 20 Laboratory test finding 08/02/2017 Creatine Kinase(CK) 171 U/L 10-223 15 , 21 TSH (Thyroid Stim Horm) 5.15 mcIU/mL 0.34-5.60 15, 22 Laboratory test finding 06/21/2017 Lipase 36 U/L 11.0-82.0 C Reactive Protein 1.96 mg/L < 5.00 23 Comp Metabolic Panel 06/21/2017 Sodium 137 mmol/L 133-145 Potassium 4.1 mmol/L 3.5-5.0 Chloride 103 mmol/L 101-111 Co2 Carbon Dioxide 27 mmol/L 22-32 Anion Gap 7 mmol/L 2-11 Glucose 120 mg/dL High 70-100 Blood Urea Nitrogen 10 mg/dL 6-24 Creatinine 1.00 mg/dL 0.67-1.17 BUN/Creatinine Ratio 10.0 8-20 Calcium 9.7 mg/dL 8.6-10.3 Total Protein 7.2 g/dL 6.4-8.9 Albumin 4.4 g/dL 3.2-5.2 Globulin 2.8 g/dL 2-4 Albumin/Globulin Ratio 1.6 1-3 Total Bilirubin 0.70 mg/dL 0.2-1.0 Alkaline Phosphatase 45 U/L 34-104 Alt 37 U/L 7-52 Ast 33 U/L 13-39 Egfr Non- 76.5 >60 Egfr 98.4 >60 24 Laboratory test finding 06/21/2017 Lactic Acid 1.6 mmol/L 0.5-2.0 25 CBC Auto Diff 06/21/2017 White Blood Count 6.1 10^3/uL 3.5-10.8 Red Blood Count 4.97 10^6/uL 4.0-5.4 Hemoglobin 14.8 g/dL 14.0-18.0 Hematocrit 44 % 42-52 Mean Corpuscular Volume 89 fL 80-94 Mean Corpuscular Hemoglobin 30 pg 27-31 Mean Corpuscular HGB Conc 34 g/dL 31-36 Red Cell Distribution Width 14 % 10.5-15 Platelet Count 200 10^3/uL 150-450 Mean Platelet Volume 6 um3 Low 7.4-10.4 Abs Neutrophils 3.9 10^3/uL 1.5-7.7 Abs Lymphocytes 1.5 10^3/uL 1.0-4.8 Abs Monocytes 0.5 10^3/uL 0-0.8 Abs Eosinophils 0.1 10^3/uL 0-0.6 Abs Basophils 0 10^3/uL 0-0.2 Abs Nucleated RBC 0 10^3/uL Granulocyte % 63.7 % 38-83 Lymphocyte % 25.3 % 25-47 Monocyte % 8.0 % High 0-7 Eosinophil % 2.3 % 0-6 Basophil % 0.7 % 0-2 Nucleated Red Blood Cells % 0.1 Urinalysis Profile 06/21/2017 Urine Color Yellow Urine Appearance Clear Urine Specific [place] 1.020 1.010-1.030 Urine pH 5.0 5-9 Urine Urobilinogen Negative Negative Urine Ketones Negative Negative Urine Protein Negative Negative Urine Leukocytes Negative Negative Urine Blood Negative Negative Urine Nitrite Negative Negative Urine Bilirubin Negative Negative Urine Glucose Negative Negative Laboratory test 06/21/2017 C Difficile PCR SEE RESULT BELOW 26, 27 finding Rapid Influenza A & 06/13/2017 Influenza A NEGATIVE Negative 28 B Molecular Molecular Influenza B Molecular NEGATIVE Negative CBC Auto Diff 03/19/2017 White Blood Count 8.0 10^3/uL 3.5-10.8 Red Blood Count 4.74 10^6/uL 4.0-5.4 Hemoglobin 14.0 g/dL 14.0-18.0 Hematocrit 42 % 42-52 Mean Corpuscular Volume 88 fL 80-94 Mean Corpuscular Hemoglobin 30 pg 27-31 Mean Corpuscular HGB Conc 33 g/dL 31-36 Red Cell Distribution Width 14 % 10.5-15 Platelet Count 184 10^3/uL 150-450 Mean Platelet Volume 7 um3 Low 7.4-10.4 Abs Neutrophils 4.7 10^3/uL 1.5-7.7 Abs Lymphocytes 2.3 10^3/uL 1.0-4.8 Abs Monocytes 0.8 10^3/uL 0-0.8 Abs Eosinophils 0.1 10^3/uL 0-0.6 Abs Basophils 0.1 10^3/uL 0-0.2 Abs Nucleated RBC 0.01 10^3/uL Granulocyte % 58.9 % 38-83 Lymphocyte % 29.1 % 25-47 Monocyte % 9.5 % High 1-9 Eosinophil % 1.7 % 0-6 Basophil % 0.8 % 0-2 Nucleated Red Blood Cells % 0.1 Comp Metabolic Panel 03/19/2017 Sodium 137 mmol/L 133-145 Potassium 3.9 mmol/L 3.5-5.0 Chloride 102 mmol/L 101-111 Co2 Carbon Dioxide 26 mmol/L 22-32 Anion Gap 9 mmol/L 2-11 Glucose 92 mg/dL 70-100 Blood Urea Nitrogen 13 mg/dL 6-24 Creatinine 1.03 mg/dL 0.67-1.17 BUN/Creatinine Ratio 12.6 8-20 Calcium 9.5 mg/dL 8.6-10.3 Total Protein 6.8 g/dL 6.4-8.9 Albumin 4.1 g/dL 3.2-5.2 Globulin 2.7 g/dL 2-4 Albumin/Globulin Ratio 1.5 1-3 Total Bilirubin 0.70 mg/dL 0.2-1.0 Alkaline Phosphatase 52 U/L 34-104 Alt 37 U/L 7-52 Ast 28 U/L 13-39 Egfr Non- 73.9 >60 Egfr 95.1 >60 29 Urinalysis Profile 02/07/2017 Urine Color Yellow Urine Appearance Clear Urine Specific [place] 1.018 1.010-1.030 Urine pH 7.0 5-9 Urine Urobilinogen Negative Negative Urine Ketones Negative Negative Urine Protein Negative Negative Urine Leukocytes Negative Negative Urine Blood Negative Negative Urine Nitrite Negative Negative Urine Bilirubin Negative Negative Urine Glucose Negative Negative CBC Auto Diff 02/06/2017 White Blood Count 9.2 10^3/uL 3.5-10.8 Red Blood Count 5.11 10^6/uL 4.0-5.4 Hemoglobin 15.4 g/dL 14.0-18.0 Hematocrit 45 % 42-52 Mean Corpuscular Volume 89 fL 80-94 Mean Corpuscular Hemoglobin 30 pg 27-31 Mean Corpuscular HGB Conc 34 g/dL 31-36 Red Cell Distribution Width 14 % 10.5-15 Platelet Count 209 10^3/uL 150-450 Mean Platelet Volume 6 um3 Low 7.4-10.4 Abs Neutrophils 6.7 10^3/uL 1.5-7.7 Abs Lymphocytes 1.8 10^3/uL 1.0-4.8 Abs Monocytes 0.6 10^3/uL 0-0.8 Abs Eosinophils 0.1 10^3/uL 0-0.6 Abs Basophils 0 10^3/uL 0-0.2 Abs Nucleated RBC 0 10^3/uL Granulocyte % 72.6 % 38-83 Lymphocyte % 19.3 % Low 25-47 Monocyte % 6.5 % 1-9 Eosinophil % 1.1 % 0-6 Basophil % 0.5 % 0-2 Nucleated Red Blood Cells % 0 Laboratory test finding 02/06/2017 Lactic Acid 3.0 mmol/L High 0.5-2.0 30 B-Type Natriuretic Peptide BNP 22 pg/mL 31 Comp Metabolic Panel 02/06/2017 Sodium 139 mmol/L 133-145 Potassium 4.4 mmol/L 3.5-5.0 Chloride 104 mmol/L 101-111 Co2 Carbon Dioxide 27 mmol/L 22-32 Anion Gap 8 mmol/L 2-11 Glucose 105 mg/dL High 70-100 Blood Urea Nitrogen 13 mg/dL 6-24 Creatinine 1.05 mg/dL 0.67-1.17 BUN/Creatinine Ratio 12.4 8-20 Calcium 9.6 mg/dL 8.6-10.3 Total Protein 7.2 g/dL 6.4-8.9 Albumin 4.4 g/dL 3.2-5.2 Globulin 2.8 g/dL 2-4 Albumin/Globulin Ratio 1.6 1-3 Total Bilirubin 0.80 mg/dL 0.2-1.0 Alkaline Phosphatase 44 U/L 34-104 Alt 39 U/L 7-52 Ast 35 U/L 13-39 Egfr Non- 72.3 >60 Egfr 93.0 >60 32 Laboratory test finding 02/06/2017 Magnesium 1.9 mg/dL 1.9-2.7 Lipase 32 U/L 11.0-82.0 Creatine Kinase(CK) 113 U/L 10-223 C Reactive Protein 2.26 mg/L < 5.00 33 Troponin-I (TnI) 0.00 ng/mL <0.04 CKMB 02/06/2017 CKMB ng/mL 2.3 ng/mL 0.6-6.3 Laboratory test finding 02/06/2017 TSH (Thyroid Stim Horm) 1.70 mcIU/mL 0.34-5.60 Inr/Protime 02/06/2017 Inr 0.94 0.89-1.11 Laboratory test finding 02/06/2017 Partial Thrombo Time 33.6 seconds 26.0 -36.3 PTT CBC Auto Diff 10/12/2016 White Blood Count 6.7 10^3/uL 3.5-10.8 Red Blood Count 5.11 10^6/uL 4.0-5.4 Hemoglobin 15.0 g/dL 14.0-18.0 Hematocrit 45 % 42-52 Mean Corpuscular Volume 89 fL 80-94 Mean Corpuscular Hemoglobin 29 pg 27-31 Mean Corpuscular HGB Conc 33 g/dL 31-36 Red Cell Distribution Width 14 % 10.5-15 Platelet Count 196 10^3/uL 150-450 Mean Platelet Volume 7 um3 Low 7.4-10.4 Abs Neutrophils 4.0 10^3/uL 1.5-7.7 Abs Lymphocytes 1.9 10^3/uL 1.0-4.8 Abs Monocytes 0.6 10^3/uL 0-0.8 Abs Eosinophils 0.2 10^3/uL 0-0.6 Abs Basophils 0 10^3/uL 0-0.2 Abs Nucleated RBC 0 10^3/uL Granulocyte % 59.2 % 38-83 Lymphocyte % 27.5 % 25-47 Monocyte % 9.4 % High 1-9 Eosinophil % 3.4 % 0-6 Basophil % 0.5 % 0-2 Nucleated Red Blood Cells % 0 Lipid Panel - [facility] 10/12/2016 Creatine Kinase(CK) 170 U/L 10-223 Comp Metabolic Panel 10/12/2016 Sodium 137 mmol/L 133-145 Potassium 4.5 mmol/L 3.5-5.0 Chloride 101 mmol/L 101-111 Co2 Carbon Dioxide 28 mmol/L 22-32 Anion Gap 8 mmol/L 2-11 Glucose 107 mg/dL High 70-100 Blood Urea Nitrogen 13 mg/dL 6-24 Creatinine 0.99 mg/dL 0.67-1.17 BUN/Creatinine Ratio 13.1 8-20 Calcium 9.6 mg/dL 8.6-10.3 Total Protein 7.0 g/dL 6.4-8.9 Albumin 4.5 g/dL 3.2-5.2 Globulin 2.5 g/dL 2-4 Albumin/Globulin Ratio 1.8 1-3 Total Bilirubin 0.80 mg/dL 0.2-1.0 Alkaline Phosphatase 47 U/L 34-104 Alt 38 U/L 7-52 Ast 32 U/L 13-39 Egfr Non- 77.6 >60 Egfr 99.9 >60 34 Lipid Profile (Trig/Chol/HDL) 10/12/2016 Triglycerides 149 mg/dL 35 Cholesterol 154 mg/dL 36 HDL Cholesterol 38.9 mg/dL 37 LDL Cholesterol 85 mg/dL 38 Laboratory test finding 10/12/2016 TSH (Thyroid Stim Horm) 4.00 mcIU/mL 0.34-5.60 Magnesium 2.0 mg/dL 1.9-2.7 Laboratory test finding 08/04/2016 Magnesium 1.9 mg/dL 1.9-2.7 Comp Metabolic Panel 08/04/2016 Sodium 135 mmol/L 133-145 Potassium 4.4 mmol/L 3.5-5.0 Chloride 103 mmol/L 101-111 Co2 Carbon Dioxide 25 mmol/L 22-32 Anion Gap 7 mmol/L 2-11 Glucose 109 mg/dL High 70-100 Blood Urea Nitrogen 13 mg/dL 6-24 Creatinine 1.04 mg/dL 0.67-1.17 BUN/Creatinine Ratio 12.5 8-20 Calcium 9.5 mg/dL 8.6-10.3 Total Protein 6.7 g/dL 6.4-8.9 Albumin 4.3 g/dL 3.2-5.2 Globulin 2.4 g/dL 2-4 Albumin/Globulin Ratio 1.8 1-3 Total Bilirubin 0.60 mg/dL 0.2-1.0 Alkaline Phosphatase 44 U/L 34-104 Alt 34 U/L 7-52 Ast 28 U/L 13-39 Egfr Non- 73.4 >60 Egfr 94.3 >60 39 Lipid Profile (Trig/Chol/HDL) 08/04/2016 Triglycerides 156 mg/dL 40 Cholesterol 157 mg/dL 41 HDL Cholesterol 35.1 mg/dL 42 LDL Cholesterol 91 mg/dL 43 Laboratory test finding 08/04/2016 Creatine Kinase(CK) 120 U/L 10-223 Laboratory test finding 08/04/2016 Hepatitis B Core AB Nonreactive Nonreactive Igm Hepatitis B Core AB Igm MML Negative Negative 44 Hepatitis B Dna Quantitative Detected IU/mL Undetected 45 Laboratory test finding 07/21/2016 C Difficile PCR SEE RESULT BELOW 46 Stool Culture SEE RESULT BELOW 47 CBC Auto Diff 07/21/2016 White Blood Count 7.3 10^3/uL 3.5-10.8 Red Blood Count 5.13 10^6/uL 4.0-5.4 Hemoglobin 14.8 g/dL 14.0-18.0 Hematocrit 45 % 42-52 Mean Corpuscular Volume 88 fL 80-94 Mean Corpuscular Hemoglobin 29 pg 27-31 Mean Corpuscular HGB Conc 33 g/dL 31-36 Red Cell Distribution Width 14 % 10.5-15 Platelet Count 193 10^3/uL 150-450 Mean Platelet Volume 7 um3 Low 7.4-10.4 Abs Neutrophils 4.8 10^3/uL 1.5-7.7 Abs Lymphocytes 1.8 10^3/uL 1.0-4.8 Abs Monocytes 0.6 10^3/uL 0-0.8 Abs Eosinophils 0.1 10^3/uL 0-0.6 Abs Basophils 0.1 10^3/uL 0-0.2 Abs Nucleated RBC 0 10^3/uL Granulocyte % 65.2 % 38-83 Lymphocyte % 24.9 % Low 25-47 Monocyte % 7.7 % 1-9 Eosinophil % 1.1 % 0-6 Basophil % 1.1 % 0-2 Nucleated Red Blood Cells % 0 Comp Metabolic Panel 07/21/2016 Sodium 136 mmol/L 133-145 Potassium 4.4 mmol/L 3.5-5.0 Chloride 103 mmol/L 101-111 Co2 Carbon Dioxide 25 mmol/L 22-32 Anion Gap 8 mmol/L 2-11 Glucose 114 mg/dL High 70-100 Blood Urea Nitrogen 9 mg/dL 6-24 Creatinine 1.00 mg/dL 0.67-1.17 BUN/Creatinine Ratio 9.0 8-20 Calcium 9.6 mg/dL 8.6-10.3 Total Protein 6.8 g/dL 6.4-8.9 Albumin 4.3 g/dL 3.2-5.2 Globulin 2.5 g/dL 2-4 Albumin/Globulin Ratio 1.7 1-3 Total Bilirubin 0.70 mg/dL 0.2-1.0 Alkaline Phosphatase 45 U/L 34-104 Alt 39 U/L 7-52 Ast 31 U/L 13-39 Egfr Non- 76.7 >60 Egfr 98.7 >60 48 Laboratory test finding 07/21/2016 Lipase 30 U/L 11.0-82.0 C Reactive Protein 1.79 mg/L < 5.00 49 Lactic Acid 1.8 mmol/L 0.5-2.0 50 Urinalysis Profile 07/21/2016 Urine Color Yellow Urine Appearance Clear Urine Specific [place] 1.011 1.010-1.030 Urine pH 6.0 5-9 Urine Urobilinogen Negative Negative Urine Ketones Negative Negative Urine Protein Negative Negative Urine Leukocytes Negative Negative Urine Blood Negative Negative Urine Nitrite Negative Negative Urine Bilirubin Negative Negative Urine Glucose Negative Negative CBC Auto Diff 06/26/2016 White Blood Count 9.7 10^3/uL 3.5-10.8 Red Blood Count 5.08 10^6/uL 4.0-5.4 Hemoglobin 14.9 g/dL 14.0-18.0 Hematocrit 44 % 42-52 Mean Corpuscular Volume 87 fL 80-94 Mean Corpuscular Hemoglobin 29 pg 27-31 Mean Corpuscular HGB Conc 34 g/dL 31-36 Red Cell Distribution Width 14 % 10.5-15 Platelet Count 206 10^3/uL 150-450 Mean Platelet Volume 7 um3 Low 7.4-10.4 Abs Neutrophils 5.1 10^3/uL 1.5-7.7 Abs Lymphocytes 3.6 10^3/uL 1.0-4.8 Abs Monocytes 0.8 10^3/uL 0-0.8 Abs Eosinophils 0.1 10^3/uL 0-0.6 Abs Basophils 0.1 10^3/uL 0-0.2 Abs Nucleated RBC 0.01 10^3/uL Granulocyte % 52.5 % 38-83 Lymphocyte % 37.3 % 25-47 Monocyte % 8.3 % 1-9 Eosinophil % 1.4 % 0-6 Basophil % 0.5 % 0-2 Nucleated Red Blood Cells % 0.1 Comp Metabolic Panel 06/26/2016 Sodium 137 mmol/L 133-145 Potassium 3.4 mmol/L Low 3.5-5.0 Chloride 102 mmol/L 101-111 Co2 Carbon Dioxide 25 mmol/L 22-32 Anion Gap 10 mmol/L 2-11 Glucose 108 mg/dL High 70-100 Blood Urea Nitrogen 10 mg/dL 6-24 Creatinine 1.05 mg/dL 0.67-1.17 BUN/Creatinine Ratio 9.5 8-20 Calcium 9.6 mg/dL 8.6-10.3 Total Protein 7.0 g/dL 6.4-8.9 Albumin 4.3 g/dL 3.2-5.2 Globulin 2.7 g/dL 2-4 Albumin/Globulin Ratio 1.6 1-3 Total Bilirubin 0.60 mg/dL 0.2-1.0 Alkaline Phosphatase 46 U/L 34-104 Alt 32 U/L 7-52 Ast 25 U/L 13-39 Egfr Non- 72.5 >60 Egfr 93.3 >60 51 Laboratory test finding 06/26/2016 Magnesium 1.8 mg/dL Low 1.9-2.7 Troponin-I (TnI) 0.00 ng/mL <0.04 52 Laboratory test finding 06/25/2016 Vitamin D Total 25(Oh) 30.5 ng/mL 30- 50 Vitamin B12 And Folate 06/25/2016 Vitamin B12 214 pg/mL 180-914 53 Serum Folic Acid (Folate) 16.37 ng/mL >3.99 Laboratory test finding 06/25/2016 Hepatitis B Core AB Positive Negative 54 Total Hepatitis B Janel AB 06/25/2016 Hepatitis B Surface Nonreactive Nonreactive Titer AB Hep B Surf AB Level 5.60 mIU/mL <12 55 Laboratory test finding 06/25/2016 Hepatitis B Surface Ag Nonreactive Nonreactive CBC Auto Diff 06/23/2016 White Blood Count 8.4 10^3/uL 3.5-10.8 Red Blood Count 5.26 10^6/uL 4.0-5.4 Hemoglobin 15.2 g/dL 14.0-18.0 Hematocrit 46 % 42-52 Mean Corpuscular Volume 88 fL 80-94 Mean Corpuscular Hemoglobin 29 pg 27-31 Mean Corpuscular HGB Conc 33 g/dL 31-36 Red Cell Distribution Width 14 % 10.5-15 Platelet Count 211 10^3/uL 150-450 Mean Platelet Volume 7 um3 Low 7.4-10.4 Abs Neutrophils 5.7 10^3/uL 1.5-7.7 Abs Lymphocytes 1.8 10^3/uL 1.0-4.8 Abs Monocytes 0.7 10^3/uL 0-0.8 Abs Eosinophils 0.1 10^3/uL 0-0.6 Abs Basophils 0.1 10^3/uL 0-0.2 Abs Nucleated RBC 0.01 10^3/uL Granulocyte % 68.0 % 38-83 Lymphocyte % 21.9 % Low 25-47 Monocyte % 8.6 % 1-9 Eosinophil % 0.8 % 0-6 Basophil % 0.7 % 0-2 Nucleated Red Blood Cells % 0.1 Comp Metabolic Panel 06/23/2016 Sodium 136 mmol/L 133-145 Potassium 4.1 mmol/L 3.5-5.0 Chloride 103 mmol/L 101-111 Co2 Carbon Dioxide 25 mmol/L 22-32 Anion Gap 8 mmol/L 2-11 Glucose 100 mg/dL 70-100 Blood Urea Nitrogen 12 mg/dL 6-24 Creatinine 1.05 mg/dL 0.67-1.17 BUN/Creatinine Ratio 11.4 8-20 Calcium 9.6 mg/dL 8.6-10.3 Total Protein 7.0 g/dL 6.4-8.9 Albumin 4.3 g/dL 3.2-5.2 Globulin 2.7 g/dL 2-4 Albumin/Globulin Ratio 1.6 1-3 Total Bilirubin 0.70 mg/dL 0.2-1.0 Alkaline Phosphatase 45 U/L 34-104 Alt 36 U/L 7-52 Ast 30 U/L 13-39 Egfr Non- 72.5 >60 Egfr 93.3 >60 56 Laboratory test finding 06/23/2016 Lipase 30 U/L 11.0-82.0 CBC Auto Diff 04/05/2016 White Blood Count 5.6 10^3/uL 3.5-10.8 Red Blood Count 5.09 10^6/uL 4.0-5.4 Hemoglobin 14.7 g/dL 14.0-18.0 Hematocrit 45 % 42-52 Mean Corpuscular Volume 88 fL 80-94 Mean Corpuscular Hemoglobin 29 pg 27-31 Mean Corpuscular HGB Conc 33 g/dL 31-36 Red Cell Distribution Width 14 % 10.5-15 Platelet Count 199 10^3/uL 150-450 Mean Platelet Volume 7 um3 Low 7.4-10.4 Abs Neutrophils 3.1 10^3/uL 1.5-7.7 Abs Lymphocytes 1.6 10^3/uL 1.0-4.8 Abs Monocytes 0.7 10^3/uL 0-0.8 Abs Eosinophils 0.1 10^3/uL 0-0.6 Abs Basophils 0 10^3/uL 0-0.2 Abs Nucleated RBC 0 10^3/uL Granulocyte % 56.1 % 38-83 Lymphocyte % 29.3 % 25-47 Monocyte % 11.8 % High 1-9 Eosinophil % 2.0 % 0-6 Basophil % 0.8 % 0-2 Nucleated Red Blood Cells % 0.1 Lipid Panel - [facility] 04/05/2016 Creatine Kinase(CK) 115 U/L 10-223 57 Laboratory test finding 04/05/2016 Magnesium 1.9 mg/dL 1.9-2.7 58 Lipid Profile (Trig/Chol/HDL) 04/05/2016 Triglycerides 189 mg/dL 59 Cholesterol 187 mg/dL 60 HDL Cholesterol 35.2 mg/dL 61 LDL Cholesterol 114 mg/dL 62 Comp Metabolic Panel 04/05/2016 Sodium 136 mmol/L 133-145 Potassium 4.7 mmol/L 3.5-5.0 Chloride 102 mmol/L 101-111 Co2 Carbon Dioxide 29 mmol/L 22-32 Anion Gap 5 mmol/L 2-11 Glucose 115 mg/dL High 70-100 Blood Urea Nitrogen 10 mg/dL 6-24 Creatinine 1.10 mg/dL 0.67-1.17 BUN/Creatinine Ratio 9.1 8-20 Calcium 9.4 mg/dL 8.6-10.3 Total Protein 6.6 g/dL 6.4-8.9 Albumin 4.1 g/dL 3.2-5.2 Globulin 2.5 g/dL 2-4 Albumin/Globulin Ratio 1.6 1-3 Total Bilirubin 0.70 mg/dL 0.2-1.0 Alkaline Phosphatase 44 U/L 34-104 Alt 31 U/L 7-52 Ast 26 U/L 13-39 Egfr Non- 68.8 >60 Egfr 88.4 >60 63 Laboratory test finding 04/05/2016 TSH (Thyroid Stim 3.97 mcIU/mL 0.34- 5.60 64 Horm) Cortisol 9.49 ?g/dL 65 PSA Screening 0.329 ng/mL 0-4.000 66 Lipid Panel - [facility] 11/14/2015 Creatine Kinase(CK) 200 U/L 10-223 67, 68 Comp Metabolic Panel 11/14/2015 Sodium 138 mmol/L 133-145 67 Potassium 4.5 mmol/L 3.5-5.0 67 Chloride 104 mmol/L 101-111 67 Co2 Carbon Dioxide 26 mmol/L 22-32 67 Anion Gap 8 mmol/L 2-11 67 Glucose 107 mg/dL High 70-100 67 Blood Urea Nitrogen 13 mg/dL 6-24 67 Creatinine 1.00 mg/dL 0.67-1.17 67 BUN/Creatinine Ratio 13.0 8-20 67 Calcium 9.2 mg/dL 8.6-10.3 67 Total Protein 6.7 g/dL 6.4-8.9 67 Albumin 4.2 g/dL 3.2-5.2 67 Globulin 2.5 g/dL 2-4 67 Albumin/Globulin Ratio 1.7 1-3 67 Total Bilirubin 0.60 mg/dL 0.2-1.0 67 Alkaline Phosphatase 46 U/L 34-104 67 Alt 37 U/L 7-52 67 Ast 32 U/L 13-39 67 Egfr Non- 77.0 >60 67 Egfr 99.1 >60 67, 69 Lipid Profile (Trig/Chol/HDL) 11/14/2015 Triglycerides 100 mg/dL 67, 70 Cholesterol 149 mg/dL 67, 71 HDL Cholesterol 38.8 mg/dL 67, 72 LDL Cholesterol 90 mg/dL 67, 73 Lipid Profile (Trig/Chol/HDL) 09/26/2015 Triglycerides 109 mg/dL 74 Cholesterol 138 mg/dL 75 HDL Cholesterol 38.8 mg/dL 76 LDL Cholesterol 77 mg/dL 77 Comp Metabolic Panel 09/26/2015 Sodium 137 mmol/L 133-145 Potassium 4.3 mmol/L 3.5-5.0 Chloride 102 mmol/L 101-111 Co2 Carbon Dioxide 27 mmol/L 22-32 Anion Gap 8 mmol/L 2-11 Glucose 102 mg/dL High 70-100 Blood Urea Nitrogen 14 mg/dL 6-24 Creatinine 1.04 mg/dL 0.67-1.17 BUN/Creatinine Ratio 13.5 8-20 Calcium 9.2 mg/dL 8.6-10.3 Total Protein 6.8 g/dL 6.4-8.9 Albumin 4.4 g/dL 3.2-5.2 Globulin 2.4 g/dL 2-4 Albumin/Globulin Ratio 1.8 1-3 Total Bilirubin 0.70 mg/dL 0.2-1.0 Alkaline Phosphatase 43 U/L 34-104 Alt 36 U/L 7-52 Ast 34 U/L 13-39 Egfr Non- 73.6 >60 Egfr 94.7 >60 78 Lipid Panel - [facility] 09/26/2015 Creatine Kinase(CK) 257 U/L High 10-223 Lipid Panel - [facility] 08/21/2015 Creatine Kinase(CK) 149 U/L 10-223 79 Comp Metabolic Panel 08/21/2015 Sodium 138 mmol/L 133-145 Potassium 4.5 mmol/L 3.5-5.0 Chloride 102 mmol/L 101-111 Co2 Carbon Dioxide 30 mmol/L 22-32 Anion Gap 6 mmol/L 2-11 Glucose 104 mg/dL High 70-100 Blood Urea Nitrogen 13 mg/dL 6-24 Creatinine 1.06 mg/dL 0.67-1.17 BUN/Creatinine Ratio 12.3 8-20 Calcium 9.4 mg/dL 8.6-10.3 Total Protein 6.5 g/dL 6.4-8.9 Albumin 4.4 g/dL 3.2-5.2 Globulin 2.1 g/dL 2-4 Albumin/Globulin Ratio 2.1 1-3 Total Bilirubin 0.60 mg/dL 0.2-1.0 Alkaline Phosphatase 50 U/L 34-104 Alt 33 U/L 7-52 Ast 28 U/L 13-39 Egfr Non- 72.0 >60 Egfr 92.6 >60 80 Laboratory test finding 08/21/2015 Magnesium 2.0 mg/dL 1.9-2.7 81 CBC Auto Diff 08/21/2015 White Blood Count 7.0 10^3/uL 3.5-10.8 Red Blood Count 4.93 10^6/uL 4.0-5.4 Hemoglobin 14.5 g/dL 14.0-18.0 Hematocrit 43 % 42-52 Mean Corpuscular Volume 88 fL 80-94 Mean Corpuscular Hemoglobin 30 pg 27-31 Mean Corpuscular HGB Conc 34 g/dL 31-36 Red Cell Distribution Width 14 % 10.5-15 Platelet Count 217 10^3/uL 150-450 Mean Platelet Volume 7 um3 Low 7.4-10.4 Abs Neutrophils 4.0 10^3/uL 1.5-7.7 Abs Lymphocytes 2.2 10^3/uL 1.0-4.8 Abs Monocytes 0.6 10^3/uL 0-0.8 Abs Eosinophils 0.1 10^3/uL 0-0.6 Abs Basophils 0 10^3/uL 0-0.2 Abs Nucleated RBC 0.01 10^3/uL Granulocyte % 57.4 % 38-83 Lymphocyte % 32.0 % 25-47 Monocyte % 8.0 % 1-9 Eosinophil % 2.1 % 0-6 Basophil % 0.5 % 0-2 Nucleated Red Blood Cells % 0.1 Lipid Profile (Trig/Chol/HDL) 08/21/2015 Triglycerides 154 mg/dL 82 Cholesterol 198 mg/dL 83 HDL Cholesterol 36.9 mg/dL 84 LDL Cholesterol 130 mg/dL 85 Comp Metabolic Panel 02/24/2015 Sodium 136 mmol/L 133-145 Potassium 4.2 mmol/L 3.5-5.0 Chloride 101 mmol/L 101-111 Co2 Carbon Dioxide 29 mmol/L 22-32 Anion Gap 6 mmol/L 2-11 Glucose 108 mg/dL High 70-100 Blood Urea Nitrogen 12 mg/dL 6-24 Creatinine 1.04 mg/dL 0.67-1.17 BUN/Creatinine Ratio 11.5 8-20 Calcium 9.4 mg/dL 8.6-10.3 Total Protein 6.5 g/dL 6.4-8.9 Albumin 4.4 g/dL 3.2-5.2 Globulin 2.1 g/dL 2-4 Albumin/Globulin Ratio 2.1 1-3 Total Bilirubin 0.90 mg/dL 0.2-1.0 Alkaline Phosphatase 54 U/L 34-104 Alt 37 U/L 7-52 Ast 30 U/L 13-39 Egfr Non- 73.6 >60 Egfr 94.7 >60 86 CBC Auto Diff 02/24/2015 White Blood Count 6.3 10^3/uL 4.8-10.8 Red Blood Count 4.98 10^6/uL 4.0-5.4 Hemoglobin 14.7 g/dL 14.0-18.0 Hematocrit 45 % 42-52 Mean Corpuscular Volume 91 fL 80-94 Mean Corpuscular Hemoglobin 30 pg 27-31 Mean Corpuscular HGB Conc 33 g/dL 31-36 Red Cell Distribution Width 14 % 10.5-15 Platelet Count 189 10^3/uL 150-450 Mean Platelet Volume 7 um3 Low 7.4-10.4 Abs Neutrophils 3.8 10^3/uL 1.5-7.7 Abs Lymphocytes 1.9 10^3/uL 1.0-4.8 Abs Monocytes 0.5 10^3/uL 0-0.8 Abs Eosinophils 0.1 10^3/uL 0-0.6 Abs Basophils 0 10^3/uL 0-0.2 Abs Nucleated RBC 0.01 10^3/uL Granulocyte % 59.9 % 38-83 Lymphocyte % 29.5 % 25-47 Monocyte % 8.4 % 1-9 Eosinophil % 1.8 % 0-6 Basophil % 0.4 % 0-2 Nucleated Red Blood Cells % 0.1 Laboratory test finding 02/24/2015 Magnesium 1.8 mg/dL Low 1.9-2.7 Laboratory test finding 11/18/2014 Magnesium 1.8 mg/dL Low 1.9-2.7 87, 88 Creatine Kinase(CK) 149 U/L 10-223 87, 89 Comp Metabolic Panel 11/18/2014 Sodium 138 mmol/L 133-145 87 Potassium 4.3 mmol/L 3.5-5.0 87 Chloride 102 mmol/L 101-111 87 Co2 Carbon Dioxide 28 mmol/L 22-32 87 Anion Gap 8 mmol/L 2-11 87 Glucose 107 mg/dL High 70-100 87 Blood Urea Nitrogen 12 mg/dL 6-24 87 Creatinine 1.03 mg/dL 0.67-1.17 87 BUN/Creatinine Ratio 11.7 8-20 87 Calcium 9.4 mg/dL 8.6-10.3 87 Total Protein 6.8 g/dL 6.4-8.9 87 Albumin 4.4 g/dL 3.2-5.2 87 Globulin 2.4 g/dL 2-4 87 Albumin/Globulin Ratio 1.8 1-3 87 Total Bilirubin 0.80 mg/dL 0.2-1.0 87 Alkaline Phosphatase 54 U/L 34-104 87 Alt 34 U/L 7-52 87 Ast 28 U/L 13-39 87 Egfr Non- 74.7 >60 87 Egfr 96.1 >60 87, 90 Lipid Profile (Trig/Chol/HDL) 11/18/2014 Triglycerides 130 mg/dL 87, 91 Cholesterol 126 mg/dL 87, 92 HDL Cholesterol 41.7 mg/dL 87, 93 LDL Cholesterol 58 mg/dL 87, 94 CBC Auto Diff 09/08/2013 White Blood Count 8.1 10^3/uL 4.8-10.8 Red Blood Count 4.65 10^6/uL 4.0-5.4 Hemoglobin 13.9 g/dL Low 14.0-18.0 Hematocrit 41 % Low 42-52 Mean Corpuscular Volume 89 fL 80-94 Mean Corpuscular Hemoglobin 30 pg 27-31 Mean Corpuscular HGB Conc 34 g/dL 31-36 Red Cell Distribution Width 13 % 10.5-15 Platelet Count 194 10^3/uL 150-450 Mean Platelet Volume 7 um3 Low 7.4-10.4 Abs Neutrophils 4.6 10^3/uL 1.5-7.7 Abs Lymphocytes 2.5 10^3/uL 1.0-4.8 Abs Monocytes 0.8 10^3/uL 0-0.8 Abs Eosinophils 0.1 10^3/uL 0-0.6 Abs Basophils 0 10^3/uL 0-0.2 Abs Nucleated RBC 0 10^3/uL Granulocyte % 56.8 % 38-83 Lymphocyte % 31.5 % 25-47 Monocyte % 9.6 % High 1-9 Eosinophil % 1.5 % 0-6 Basophil % 0.6 % 0-2 Nucleated Red Blood Cells % 0 Inr/Protime 09/08/2013 Inr 0.88 0.85-1.06 Laboratory test finding 09/08/2013 Activated Partial 34.0 seconds 24.0- 36.1 Thrombo Time B Type Natriuretic Peptide 48 pg/mL 95 Comp Metabolic Panel 09/08/2013 Sodium 138 mmol/L 133-145 Potassium 3.7 mmol/L 3.7-5.6 Chloride 104 mmol/L 101-111 Co2 Carbon Dioxide 27 mmol/L 22-32 Anion Gap 7 mmol/L 2-11 Glucose 97 mg/dL 70-100 Blood Urea Nitrogen 10 mg/dL 6-24 Creatinine 1.15 mg/dL 0.67-1.17 BUN/Creatinine Ratio 8.7 8-20 Calcium 9.4 mg/dL 8.6-10.3 Total Protein 6.8 g/dL 6.4-8.9 Albumin 4.3 g/dL 3.2-5.2 Globulin 2.5 g/dL 2-4 Albumin/Globulin Ratio 1.7 1-3 Total Bilirubin 0.50 mg/dL 0.2-1.0 Alkaline Phosphatase 45 U/L 34-104 Alt 34 U/L 7-52 Ast 28 U/L 13-39 Egfr Non- 66.0 >60 Egfr 84.9 >60 96 Laboratory test finding 09/08/2013 Creatine Kinase 242 U/L High 10-223 CKMB 09/08/2013 CKMB ng/mL 3.2 ng/mL 0.6-6.3 Laboratory test finding 09/08/2013 Troponin I 0.00 ng/mL <0.03 97 T4 7.67 g/dL 6.09-12.23 TSH (Thyroid Stimulating Horm) 3.97 IU/mL 0.34-5.60 C Reactive Protein 2.16 mg/L < 5.00 98 1 FASTING Copy Result to: HOLLIE VILLALOBOS ([id number]) 2 FASTING Copy Result to: HOLLIE VILLALOBOS ([id number]) 3 Because ethnic data is not always readily available, this report includes an eGFR for both -Americans and non- Americans. The National Kidney Disease Education Program (NKDEP) does not endorse the use of the MDRD equation for patients that are not between the ages of 18 and 70, are , have extremes of body size, muscle mass, or nutritional status, or are non- or non-. According to the National Kidney Foundation, irrespective of diagnosis, the stage of the disease is based on the level of kidney function: Stage Description GFR(mL/min/1.73 m(2)) 1 Kidney damage with normal or decreased GFR 90 2 Kidney damage with mild decrease in GFR 60-89 3 Moderate decrease in GFR 30-59 4 Severe decrease in GFR 15-29 5 Kidney failure <15 (or dialysis) 4 Desirable: <150 Borderline High: 150-199 High: 200-499 Very High: >500 5 Desirable: <200 Borderline High: 200-239 High: >239 6 Low: <40 Desirable: 40-60 High: >60 7 Desirable: <100 Near Optimal: 100-129 Borderline High: 130-159 High: 160-189 Very High: >189 8 SEE RESULT BELOW Name: NARGIS GOMEZ : [address]: Yovani Guy MD Acct: [id number] Unit: [id number] AGE: 57 Location: [facility] Re01/01/18 SEX: M Status: REG REF SPEC: [id number] LORAINE: [address]: Yovani Guy MD REQ: [id number] RECD: 01/02/18 STATUS: COMP _ SOURCE: STOOL SPDESC: ORDERED: C. diff PCR Procedure Result Reported Site Stool Specimen Description Final 01/02/18- 1047 ML Stool Color Brown Stool Form Nonformed Stool Consistency Pasty C. difficile PCR Final 01/02/18- 1137 ML Organism 1 027 Presumptive NEGATIVE Organism 2 Toxigenic C.diff POSITIVE * ML - Main Lab . END OF REPORT DEPARTMENT OF PATHOLOGY, [address] [place] [address] Castro Conley M.D. Director [facility] # [id number] SEE RESULT BELOW Name: NARGIS GOMEZ : [address]: Shorty Quiroz MD Acct: [id number] Unit: [id number] AGE: 57 Location: ED Re11/16/17 SEX: M Status: DEP ER SPEC: [id number] LORAINE: 11/16/[address] [facility] [address]: Jordy KLEIN REQ: [id number] RECD: 11/16/17 STATUS: NAKITA VELASQUEZ DR: Shorty Kang MD _ SOURCE: STOOL SPDESC: ORDERED: C. diff PCR COMMENTS: Verbal to [id number] by [email or web address] at 1146 on 11/16/17. Results read back accurately. Procedure Result Reported Site Stool Specimen Description Final 11/16/17- 1107 ML Stool Color Brown Stool Form Nonformed Stool Consistency Mucoid C. difficile PCR Final 11/16/17- 1146 ML Organism 1 027 Presumptive NEGATIVE Organism 2 Toxigenic C.diff POSITIVE * ML - Main Lab . END OF REPORT DEPARTMENT OF PATHOLOGY, [address] [place] [address] Castro Conley M.D. Director [facility] # [id number] 10 SEE RESULT BELOW Name: NARGIS GOMEZ : [address]: Mary Smith MD Acct: [id number] Unit: [id number] AGE: 57 Location: ED Re10/27/17 SEX: M Status: DEP ER SPEC: [id number] LORAINE: 10/27/17-[address] [facility] [address]: Mary Smith MD REQ: [id number] RECD: 10/27/17 STATUS: NAKITA VELASQUEZ DR: Akin Kang MD _ SOURCE: STOOL SPDESC: ORDERED: C. diff PCR Procedure Result Reported Site Stool Specimen Description Final 10/27/17- 842 ML Stool Color Brown Stool Form Nonformed Stool Consistency Pasty C. difficile PCR Final 10/27/17- 551 ML Organism 1 027 Presumptive NEGATIVE Organism 2 Toxigenic C.diff NEGATIVE * ML - Main Lab . END OF REPORT DEPARTMENT OF PATHOLOGY, [address] [place] [address] Castro Conley M.D. Director [facility] # [id number] [address] [facility] Severe Sepsis and Septic Shock Management Bundle Measure requires all lactic acids initially measuring >2.0 mmol/L be repeated. 12 Because ethnic data is not always readily available, this report includes an eGFR for both -Americans and non- Americans. The National Kidney Disease Education Program (NKDEP) does not endorse the use of the MDRD equation for patients that are not between the ages of 18 and 70, are , have extremes of body size, muscle mass, or nutritional status, or are non- or non-. According to the National Kidney Foundation, irrespective of diagnosis, the stage of the disease is based on the level of kidney function: Stage Description GFR(mL/min/1.73 m(2)) 1 Kidney damage with normal or decreased GFR 90 2 Kidney damage with mild decrease in GFR 60-89 3 Moderate decrease in GFR 30-59 4 Severe decrease in GFR 15-29 5 Kidney failure <15 (or dialysis) 13 SEE RESULT BELOW Name: NARGIS GOMEZ : [address]: Akin Kang MD Acct: [id number] Unit: [id number] AGE: 57 Location: [facility] Re10/10/17 SEX: M Status: REG REF SPEC: [id number] LORAINE: 10/10/17-[address] [facility] [address]: Akin Kang MD REQ: [id number] RECD: 10/10/17 STATUS: COMP _ SOURCE: KATIUSKA SPDESC: ORDERED: Yo calloway PCR Procedure Result Reported Site Stool Specimen Description Final 10/11/17- 1116 ML Stool Color Brown Stool Form Nonformed Stool Consistency Pasty Soft C. difficile PCR Final 10/11/17- 1200 ML Organism 1 027 Presumptive NEGATIVE Organism 2 Toxigenic C.diff POSITIVE * ML - Main Lab . END OF REPORT DEPARTMENT OF PATHOLOGY, [address] [place] [address] Castro Conley M.D. Director [facility] # [id number] 14 SEE RESULT BELOW Name: NARGIS GOMEZ : [address]: Yoni Villalobos MD Acct: [id number] Unit: [id number] AGE: 57 Location: LAB Re08/03/17 SEX: M Status: REG REF SPEC: [id number] LORAINE: 08/03/[address]: Darius Villalobos MD REQ: [id number] RECD: 08/03/17 STATUS: COMP _ SOURCE: STOOL SPDESC: ORDERED: C. diff PCR Procedure Result Reported Site Stool Specimen Description Final 08/03/17- 1835 ML Stool Color Light Brown Stool Form Nonformed Stool Consistency Mucoid C. difficile PCR Final 08/03/17- 1926 ML Organism 1 027 Presumptive NEGATIVE Organism 2 Toxigenic C.diff POSITIVE * ML - Main Lab . END OF REPORT DEPARTMENT OF PATHOLOGY, [address], [place], [place] [address] Castro Conley M.D. Director [facility] # [id number] 15 FASTING in 2-3 weeks Copy Result to: AKIN KANG ([id number]) 16 Because ethnic data is not always readily available, this report includes an eGFR for both -Americans and non- Americans. The National Kidney Disease Education Program (NKDEP) does not endorse the use of the MDRD equation for patients that are not between the ages of 18 and 70, are , have extremes of body size, muscle mass, or nutritional status, or are non- or non-. According to the National Kidney Foundation, irrespective of diagnosis, the stage of the disease is based on the level of kidney function: Stage Description GFR(mL/min/1.73 m(2)) 1 Kidney damage with normal or decreased GFR 90 2 Kidney damage with mild decrease in GFR 60-89 3 Moderate decrease in GFR 30-59 4 Severe decrease in GFR 15-29 5 Kidney failure <15 (or dialysis) 17 Desirable: <150 Borderline High: 150-199 High: 200-499 Very High: >500 18 Desirable: <200 Borderline High: 200-239 High: >239 19 Low: <40 Desirable: 40-60 High: >60 20 Desirable: <100 Near Optimal: 100-129 Borderline High: 130-159 High: 160-189 Very High: >189 21 FASTING in 2-3 weeks Copy Result to: AKIN KANG ([id number]) 22 FASTING in 2-3 weeks Copy Result to: AKIN KANG ([id number]) 23 Acute inflammation: >10.00 24 Because ethnic data is not always readily available, this report includes an eGFR for both -Americans and non- Americans. The National Kidney Disease Education Program (NKDEP) does not endorse the use of the MDRD equation for patients that are not between the ages of 18 and 70, are , have extremes of body size, muscle mass, or nutritional status, or are non- or non-. According to the National Kidney Foundation, irrespective of diagnosis, the stage of the disease is based on the level of kidney function: Stage Description GFR(mL/min/1.73 m(2)) 1 Kidney damage with normal or decreased GFR 90 2 Kidney damage with mild decrease in GFR 60-89 3 Moderate decrease in GFR 30-59 4 Severe decrease in GFR 15-29 5 Kidney failure <15 (or dialysis) 25 [facility] Severe Sepsis and Septic Shock Management Bundle Measure requires all lactic acids initially measuring >2.0 mmol/L be repeated. 26 Verbal to [id number] by [id number] at 1656 on 06/21/17. Results read back accurately. 27 SEE RESULT BELOW Name: NARGIS GOMEZ : [address]: Shorty Quiroz MD Acct: [id number] Unit: [id number] AGE: 57 Location: ED Re06/21/17 SEX: M Status: DEP ER SPEC: [id number] LORAINE: 06/21/17-[address] [facility] [address]: Shorty Quiroz MD REQ: [id number] RECD: 06/21/17 STATUS: NAKITA VELASQUEZ DR: Akin Kang MD _ SOURCE: STOOL SPDESC: ORDERED: C. diff PCR COMMENTS: Verbal to [id number] by [id number] at 1656 on 06/21/17. Results read back accurately. Procedure Result Reported Site Stool Specimen Description Final 06/22/17- 0800 ML Stool Color Brown Stool Form Nonformed Stool Consistency Liquid C. difficile PCR Final 06/21/17- 1657 ML Organism 1 027 Presumptive NEGATIVE Organism 2 Toxigenic C.diff POSITIVE * ML - Main Lab . END OF REPORT DEPARTMENT OF PATHOLOGY, [address] [place] [address] Castro Conley M.D. Director [facility] # [id number] 28 Manager Internship: [id number] 29 Because ethnic data is not always readily available, this report includes an eGFR for both -Americans and non- Americans. The National Kidney Disease Education Program (NKDEP) does not endorse the use of the MDRD equation for patients that are not between the ages of 18 and 70, are , have extremes of body size, muscle mass, or nutritional status, or are non- or non-. According to the National Kidney Foundation, irrespective of diagnosis, the stage of the disease is based on the level of kidney function: Stage Description GFR(mL/min/1.73 m(2)) 1 Kidney damage with normal or decreased GFR 90 2 Kidney damage with mild decrease in GFR 60-89 3 Moderate decrease in GFR 30-59 4 Severe decrease in GFR 15-29 5 Kidney failure <15 (or dialysis) 30 Critical Result LACT:3.0 Called to [id number] at: 23:53:52 by:[email or web address] Read back by:OTONIEL [facility] Severe Sepsis and Septic Shock Management Bundle Measure requires all lactic acids initially measuring >2.0 mmol/L be repeated. 31 >100 to <200 pg/mL: likely compensated congestive heart failure (CHF) 200 to 400 pg/mL: likely moderate CHF >400 pg/mL: likely moderate to severe CHF 32 Because ethnic data is not always readily available, this report includes an eGFR for both -Americans and non- Americans. The National Kidney Disease Education Program (NKDEP) does not endorse the use of the MDRD equation for patients that are not between the ages of 18 and 70, are , have extremes of body size, muscle mass, or nutritional status, or are non- or non-. According to the National Kidney Foundation, irrespective of diagnosis, the stage of the disease is based on the level of kidney function: Stage Description GFR(mL/min/1.73 m(2)) 1 Kidney damage with normal or decreased GFR 90 2 Kidney damage with mild decrease in GFR 60-89 3 Moderate decrease in GFR 30-59 4 Severe decrease in GFR 15-29 5 Kidney failure <15 (or dialysis) 33 Acute inflammation: >10.00 34 Because ethnic data is not always readily available, this report includes an eGFR for both -Americans and non- Americans. The National Kidney Disease Education Program (NKDEP) does not endorse the use of the MDRD equation for patients that are not between the ages of 18 and 70, are , have extremes of body size, muscle mass, or nutritional status, or are non- or non-. According to the National Kidney Foundation, irrespective of diagnosis, the stage of the disease is based on the level of kidney function: Stage Description GFR(mL/min/1.73 m(2)) 1 Kidney damage with normal or decreased GFR 90 2 Kidney damage with mild decrease in GFR 60-89 3 Moderate decrease in GFR 30-59 4 Severe decrease in GFR 15-29 5 Kidney failure <15 (or dialysis) 35 Desirable <150 Borderline high 150-199 High 200-499 Very High >500 36 Desirable <200 Borderline high 200-239 High >239 37 Low <40 Desirable: 40-60 High: >60 38 Desirable: <100 mg/dL Near Optimal: 100-129 mg/dL Borderline High: 130-159 mg/dL High: 160-189 mg/dL Very High: >189 mg/dL 39 Because ethnic data is not always readily available, this report includes an eGFR for both -Americans and non- Americans. The National Kidney Disease Education Program (NKDEP) does not endorse the use of the MDRD equation for patients that are not between the ages of 18 and 70, are , have extremes of body size, muscle mass, or nutritional status, or are non- or non-. According to the National Kidney Foundation, irrespective of diagnosis, the stage of the disease is based on the level of kidney function: Stage Description GFR(mL/min/1.73 m(2)) 1 Kidney damage with normal or decreased GFR 90 2 Kidney damage with mild decrease in GFR 60-89 3 Moderate decrease in GFR 30-59 4 Severe decrease in GFR 15-29 5 Kidney failure <15 (or dialysis) 40 Desirable <150 Borderline high 150-199 High 200-499 Very High >500 41 Desirable <200 Borderline high 200-239 High >239 42 Low <40 Desirable: 40-60 High: >60 43 Desirable: <100 mg/dL Near Optimal: 100-129 mg/dL Borderline High: 130-159 mg/dL High: 160-189 mg/dL Very High: >189 mg/dL 44 Test Performed by: [address] [address] 45 HBV DNA level is <20 IU/mL (<1.30 log IU/mL). This assay cannot accurately quantify HBV DNA below this level. Result in log IU/mL is <1.3 The quantification range of this assay is 20 IU/mL to 170,000,000 IU/mL (1.30 log IU/mL to 8.23 log IU/mL). Testing was performed by the T[employer]ON AmpliPrep/TAVON TaqMan HBV test, version 2.0 ([employer] Test Performed by: [address] [address] 46 SEE RESULT BELOW Name: NARGIS GOMEZ : [address]: Lucio Church MD Acct: [id number] Unit: [id number] AGE: 56 Location: ED Re07/21/16 SEX: M Status: DEP ER SPEC: [id number] LORAINE: 07/21/16-[address]: Lucio Church MD REQ: [id number] RECD: 07/21/16 STATUS: NAKITA VELASQUEZ DR: Akin Kang MD _ SOURCE: STOOL SPDESC: ORDERED: Yo calloway PCR, Fecal Lactoferr Procedure Result Reported Site Stool Specimen Description Final 07/21/16- 1924 ML Stool Color Brown Stool Form Semi-formed Stool Consistency Pasty Soft C. difficile PCR Final 07/21/16- 2041 ML Organism 1 027 Presumptive NEGATIVE Organism 2 Toxigenic C.diff NEGATIVE Fecal Lactoferrin (Stool WBC) Final 07/21/16- 1924 ML Fecal Lactoferrin Negative by Immunoassay TEST LIMITATIONS: Assay detects elevated levels of lactoferrin released from fecal leukocytes as a marker of intestinal inflammation. The test may not be appropriate in immunocompromised persons. Fecal samples from breast fed infants should not be used with this assay. * ML - [facility] ([facility]) . END OF REPORT * ML=Testing performed at Main Lab DEPARTMENT OF PATHOLOGY, [address] [place] [address] Castro Conley M.D. Director [facility] # [id number] 47 SEE RESULT BELOW Name: NARGIS GOMEZ : [address]: Lucio Church MD Acct: [id number] Unit: [id number] AGE: 56 Location: ED Re07/21/16 SEX: M Status: DEP ER SPEC: [id number] LORAINE: 07/21/16-[address]: Lucio Church MD REQ: [id number] RECD: 07/21/16 STATUS: NAKITA VELASQUEZ DR: Akin Kang MD _ SOURCE: STOOL [facility]: ORDERED: Stool Culture Procedure Result Reported Site Stool Culture Final 07/23/16- 1136 ML Result No enteric pathogens isolated Testing for Salmonella, Shigella, Aeromonas, Plesiomonas, Yersinia and Campylobacter are included in a Stool Culture. Vibrio spp not routinely tested for in a stool culture. If testing is desired, please request specifically when placing test order. Sensitivities not routinely performed on stool isolates, as antibiotics may prolong the carriage rate of bacteria. Please contact the microbiology lab if sensitivities are required. Stool Specimen Description Final 07/22/16- 1412 ML Stool Color Brown Stool Form Semi-formed Stool Consistency Pasty Soft Shiga Toxin 1 2 Final 07/22/16- 1106 ML Organism 1 Negative Shiga Toxin 1 2 Immunochromatographic Assay CONTINUED ON NEXT PAGE * ML=Testing performed at Main Lab DEPARTMENT OF PATHOLOGY, [address] [place] [address] Castro Conley M.D. Director [facility] # [id number] Patient: RENATEBONNIEHERB ROSHAN [id number] (Continued) Specimen: [id number] Collected: 07/21/16 Received: 07/21/16-1834 (Continued) Procedure Result Reported Site Shiga Toxin 1 2 Final (continued) 07/22/16- 1106 * ML - MAIN LAB ([facility]) . END OF REPORT * ML=Testing performed at Main Lab DEPARTMENT OF PATHOLOGY, [address] [place] [address] Castro Conley M.D. Director [facility] # [id number] 48 Because ethnic data is not always readily available, this report includes an eGFR for both -Americans and non- Americans. The National Kidney Disease Education Program (NKDEP) does not endorse the use of the MDRD equation for patients that are not between the ages of 18 and 70, are , have extremes of body size, muscle mass, or nutritional status, or are non- or non-. According to the National Kidney Foundation, irrespective of diagnosis, the stage of the disease is based on the level of kidney function: Stage Description GFR(mL/min/1.73 m(2)) 1 Kidney damage with normal or decreased GFR 90 2 Kidney damage with mild decrease in GFR 60-89 3 Moderate decrease in GFR 30-59 4 Severe decrease in GFR 15-29 5 Kidney failure <15 (or dialysis) 49 Acute inflammation: >10.[address] [facility] Severe Sepsis and Septic Shock Management Bundle Measure requires all lactic acids initially measuring >2.0 mmol/L be repeated. 51 Because ethnic data is not always readily available, this report includes an eGFR for both -Americans and non- Americans. The National Kidney Disease Education Program (NKDEP) does not endorse the use of the MDRD equation for patients that are not between the ages of 18 and 70, are , have extremes of body size, muscle mass, or nutritional status, or are non- or non-. According to the National Kidney Foundation, irrespective of diagnosis, the stage of the disease is based on the level of kidney function: Stage Description GFR(mL/min/1.73 m(2)) 1 Kidney damage with normal or decreased GFR 90 2 Kidney damage with mild decrease in GFR 60-89 3 Moderate decrease in GFR 30-59 4 Severe decrease in GFR 15-29 5 Kidney failure <15 (or dialysis) 52 99th percentile=0.04 ng/mL Troponin results at [facility] and [facility] are not interchangeable. 53 Normal Range 180 to 914 Indeterminate Range 145 to 180 Deficient Range <145 54 If clinically indicated, testing for Hepatitis B Core IgM antibody is necessary to differentiate between acute and past HBV infection. Test Performed by: [place] [address] Wound Care Coordinator: Sterling Razo II, M.D., Ph.D. 55 This assay does not differentiate between reactivity due to a vaccine-induced immune response or an immune response induced by infection with HBV. 56 Because ethnic data is not always readily available, this report includes an eGFR for both -Americans and non- Americans. The National Kidney Disease Education Program (NKDEP) does not endorse the use of the MDRD equation for patients that are not between the ages of 18 and 70, are , have extremes of body size, muscle mass, or nutritional status, or are non- or non-. According to the National Kidney Foundation, irrespective of diagnosis, the stage of the disease is based on the level of kidney function: Stage Description GFR(mL/min/1.73 m(2)) 1 Kidney damage with normal or decreased GFR 90 2 Kidney damage with mild decrease in GFR 60-89 3 Moderate decrease in GFR 30-59 4 Severe decrease in GFR 15-29 5 Kidney failure <15 (or dialysis) 57 FASTING within 2 m CC:PMD Copy Result to: AKIN KANG ([id number]) 58 FASTING within 2 m CC:PMD Copy Result to: AKIN KANG ([id number]) 59 Desirable <150 Borderline high 150-199 High 200-499 Very High >500 60 Desirable <200 Borderline high 200-239 High >239 61 Low <40 Desirable: 40-60 High: >60 62 Desirable: <100 mg/dL Near Optimal: 100-129 mg/dL Borderline High: 130-159 mg/dL High: 160-189 mg/dL Very High: >189 mg/dL 63 Because ethnic data is not always readily available, this report includes an eGFR for both -Americans and non- Americans. The National Kidney Disease Education Program (NKDEP) does not endorse the use of the MDRD equation for patients that are not between the ages of 18 and 70, are , have extremes of body size, muscle mass, or nutritional status, or are non- or non-. According to the National Kidney Foundation, irrespective of diagnosis, the stage of the disease is based on the level of kidney function: Stage Description GFR(mL/min/1.73 m(2)) 1 Kidney damage with normal or decreased GFR 90 2 Kidney damage with mild decrease in GFR 60-89 3 Moderate decrease in GFR 30-59 4 Severe decrease in GFR 15-29 5 Kidney failure <15 (or dialysis) 64 FASTING 10 HOUR 65 AM 8.7-22.4 PM <10 66 Serum levels of PSA measured using the [employer] DXI Hybritech immunoassay should not be interpreted as absolute evidence of the presence or absence of disease. The PSA value should be used in conjunction with other pertinent clinical diagnostic procedures. A PSA value in the range of 0.1 to 0.6 ng/ml is indeterminate if being used as an indicator of recurrent or residual disease. The values obtained with different assay methods or kits cannot be used interchangeably. 67 FASTING 68 FASTING 69 Because ethnic data is not always readily available, this report includes an eGFR for both -Americans and non- Americans. The National Kidney Disease Education Program (NKDEP) does not endorse the use of the MDRD equation for patients that are not between the ages of 18 and 70, are , have extremes of body size, muscle mass, or nutritional status, or are non- or non-. According to the National Kidney Foundation, irrespective of diagnosis, the stage of the disease is based on the level of kidney function: Stage Description GFR(mL/min/1.73 m(2)) 1 Kidney damage with normal or decreased GFR 90 2 Kidney damage with mild decrease in GFR 60-89 3 Moderate decrease in GFR 30-59 4 Severe decrease in GFR 15-29 5 Kidney failure <15 (or dialysis) 70 Desirable <150 Borderline high 150-199 High 200-499 Very High >500 71 Desirable <200 Borderline high 200-239 High >239 72 Low <40 Desirable: 40-60 High: >60 73 Desirable: <100 mg/dL Near Optimal: 100-129 mg/dL Borderline High: 130-159 mg/dL High: 160-189 mg/dL Very High: >189 mg/dL 74 Desirable <150 Borderline high 150-199 High 200-499 Very High >500 75 Desirable <200 Borderline high 200-239 High >239 76 Low <40 Desirable: 40-60 High: >60 77 Desirable: <100 mg/dL Near Optimal: 100-129 mg/dL Borderline High: 130-159 mg/dL High: 160-189 mg/dL Very High: >189 mg/dL 78 Because ethnic data is not always readily available, this report includes an eGFR for both -Americans and non- Americans. The National Kidney Disease Education Program (NKDEP) does not endorse the use of the MDRD equation for patients that are not between the ages of 18 and 70, are , have extremes of body size, muscle mass, or nutritional status, or are non- or non-. According to the National Kidney Foundation, irrespective of diagnosis, the stage of the disease is based on the level of kidney function: Stage Description GFR(mL/min/1.73 m(2)) 1 Kidney damage with normal or decreased GFR 90 2 Kidney damage with mild decrease in GFR 60-89 3 Moderate decrease in GFR 30-59 4 Severe decrease in GFR 15-29 5 Kidney failure <15 (or dialysis) 79 PT IS FASTING 80 Because ethnic data is not always readily available, this report includes an eGFR for both -Americans and non- Americans. The National Kidney Disease Education Program (NKDEP) does not endorse the use of the MDRD equation for patients that are not between the ages of 18 and 70, are , have extremes of body size, muscle mass, or nutritional status, or are non- or non-. According to the National Kidney Foundation, irrespective of diagnosis, the stage of the disease is based on the level of kidney function: Stage Description GFR(mL/min/1.73 m(2)) 1 Kidney damage with normal or decreased GFR 90 2 Kidney damage with mild decrease in GFR 60-89 3 Moderate decrease in GFR 30-59 4 Severe decrease in GFR 15-29 5 Kidney failure <15 (or dialysis) 81 PT IS FASTING 82 Desirable <150 Borderline high 150-199 High 200-499 Very High >500 83 Desirable <200 Borderline high 200-239 High >239 84 Low <40 Desirable: 40-60 High: >60 85 Desirable: <100 mg/dL Near Optimal: 100-129 mg/dL Borderline High: 130-159 mg/dL High: 160-189 mg/dL Very High: >189 mg/dL 86 Because ethnic data is not always readily available, this report includes an eGFR for both -Americans and non- Americans. The National Kidney Disease Education Program (NKDEP) does not endorse the use of the MDRD equation for patients that are not between the ages of 18 and 70, are , have extremes of body size, muscle mass, or nutritional status, or are non- or non-. According to the National Kidney Foundation, irrespective of diagnosis, the stage of the disease is based on the level of kidney function: Stage Description GFR(mL/min/1.73 m(2)) 1 Kidney damage with normal or decreased GFR 90 2 Kidney damage with mild decrease in GFR 60-89 3 Moderate decrease in GFR 30-59 4 Severe decrease in GFR 15-29 5 Kidney failure <15 (or dialysis) 87 PT IS FASTING 88 PT IS FASTING 89 PT IS FASTING 90 Because ethnic data is not always readily available, this report includes an eGFR for both -Americans and non- Americans. The National Kidney Disease Education Program (NKDEP) does not endorse the use of the MDRD equation for patients that are not between the ages of 18 and 70, are , have extremes of body size, muscle mass, or nutritional status, or are non- or non-. According to the National Kidney Foundation, irrespective of diagnosis, the stage of the disease is based on the level of kidney function: Stage Description GFR(mL/min/1.73 m(2)) 1 Kidney damage with normal or decreased GFR 90 2 Kidney damage with mild decrease in GFR 60-89 3 Moderate decrease in GFR 30-59 4 Severe decrease in GFR 15-29 5 Kidney failure <15 (or dialysis) 91 Desirable <150 Borderline high 150-199 High 200-499 Very High >500 92 Desirable <200 Borderline high 200-239 High >239 93 Low <40 Desirable: 40-60 High: >60 94 Desirable: <100 mg/dL Near Optimal: 100-129 mg/dL Borderline High: 130-159 mg/dL High: 160-189 mg/dL Very High: >189 mg/dL 95 >100 to <200 pg/mL: likely compensated congestive heart failure (CHF) 200 to 400 pg/mL: likely moderate CHF >400 pg/mL: likely moderate to severe CHF [facility] 96 Because ethnic data is not always readily available, this report includes an eGFR for both -Americans and non- Americans. The National Kidney Disease Education Program (NKDEP) does not endorse the use of the MDRD equation for patients that are not between the ages of 18 and 70, are , have extremes of body size, muscle mass, or nutritional status, or are non- or non-. According to the National Kidney Foundation, irrespective of diagnosis, the stage of the disease is based on the level of kidney function: Stage Description GFR(mL/min/1.73 m(2)) 1 Kidney damage with normal or decreased GFR 90 2 Kidney damage with mild decrease in GFR 60-89 3 Moderate decrease in GFR 30-59 4 Severe decrease in GFR 15-29 5 Kidney failure <15 (or dialysis) 97 Reference Range and Interpretation: TnI (ng/mL) Interpretation Less Than 0.03 ng/mL Not supportive of diagnosis of [place] 0.03 - 0.50 ng/mL Indeterminate: suggest serial studies if clinically indicated. Greater than 0.5 ng/mL Consistent with diagnosis of [place] 98 Acute inflammation: >10.00 Procedures Date CPT Code Description Status Comment 01/31/2018 67216 EKG Tracing & Interpretation Completed 06/08/2017 16669 EKG Tracing & Interpretation Completed 05/24/2017 Diabetic Retinal Eye Exam Completed Document: 05/24/17 - Consult Ophthalmology - Mirna Peguero 01/06/2017 54208 Holter Monitor Review (24 Completed hr)dr review & interp only 01/03/2017 35882 ECG Monitor/Recording Completed W/Visual Superimposition Scanning 11/05/2016 15347 EKG Tracing & Interpretation Completed 10/29/2016 77011 ECHO Transthoracic, Real-Time Completed 2D With Doppler And Color Flow 10/12/2016 96009 EKG Tracing & Interpretation Completed 05/27/2016 22691 EKG Tracing & Interpretation Completed 04/20/2016 44516 ECHO Transthorasic Realtime Completed 2D W Doppler & Color Flow Hosp 04/20/2016 16290 EKG, Interpretation Only Completed 03/03/2016 84631 EKG Tracing & Interpretation Completed 07/30/2015 98463 EKG Tracing & Interpretation Completed 03/12/2015 78031 EKG Tracing & Interpretation Completed 12/09/2014 60303 Holter Monitor Review (24 Completed hr)dr review & interp only 12/09/2014 39828 ECG Monitor/Recording Completed W/Visual Superimposition Scanning 12/05/2014 73202 Holter Monitor Review (24 Completed hr)dr review & interp only 12/05/2014 25373 ECG Monitor/Recording Completed W/Visual Superimposition Scanning 11/01/2014 44326 Treadmill Interp/Report Only Completed 11/01/2014 84214 Stress Test Supervsn W/Out Completed I/R 10/08/2014 21594 ECHO Transthoracic, Real-Time Completed 2D With Doppler And Color Flow 09/11/2014 02809 EKG Tracing & Interpretation Completed 04/09/2013 07261 Treadmill Interp/Report Only Completed 04/09/2013 22428 Stress Test Supervsn W/Out Completed I/R 04/09/2013 55364 EKG, Interpretation Only Completed 03/18/2008 00487 Treadmill Interp/Report Only Completed 03/18/2008 79880 Stress Test Supervsn W/Out Completed I/R 03/18/2008 27070 Stress Test Supervsn W/Out Completed I/R 03/15/2008 02547 Color Doppler Completed 03/15/2008 99231 Color Doppler Completed 03/15/2008 15703 Pulse Doppler & Continuous Completed Wave 03/15/2008 33382 Echocardiogram Completed 03/15/2008 00492 Echocardiogram Completed 03/13/2008 53995 Holter Monitor Interpretation Completed Encounters Type Date Location Provider CPT E/M Dx [facility] 28252 A04.71 10:50a Infectious Diseases Balbir Guy Office Visit 10/25/2017 [facility] Yovani Solis 96614 A04.71 11:30a Infectious Diseases Balbir Guy Office Visit 10/18/2017 [facility] Jayshree Rodríguez, 34722 I10 3:30p [facility] N.P[facility] E78.5 I49.5 E66.01 Office Visit 08/03/2017 4:00p [facility] Internal Medicine Darius Villalobos, 61329 A04.71 - [place] Saul Mcgregor,FACP Office Visit 07/29/2017 1:30p [facility] Rodo Rodríguez, N.P. 37388 I10 [facility] E78.5 E66.01 I49.5 Office Visit 07/01/2017 3:00p [facility] Jayshree Rodríguez, N.P. 33496 I10 E78.5 E66.01 I49.5 I48.0 Z68.43 Office Visit 06/24/2017 3:00p [facility] Internal Darius Villalobos, 28752 A04.72 Medicine - [place] Saul Mcgregor,FACP Z12.11 Office Visit 06/08/2017 3:40p [facility] Rob Dozier M.D. 96295 I10 E78.5 E66.01 I49.5 I48.0 I42.9 G47.30 Office Visit 05/26/2017 2:45p [facility] Brien Carreon M.D. 91473 R51 [facility] Z86.73 Z79.82 Office Visit 04/14/2017 11:40a [facility] Internal Akin Kang, 38740 R26.81 Medicine - [place] Saul Mcgregor H53.30 J32.9 I10 E03.9 Office Visit 03/22/2017 10:00a [facility] Internal Akin Kang, 24834 R26.81 Medicine - [place] Saul Mcgregor H53.30 J01.90 Office Visit 03/15/2017 1:00p Orthopedic Services Epifanio Jack, 24049 M25.532 Of Varun PAYNE Office Visit 02/08/2017 3:30p [facility] LATOYA Hung 37920 I48.0 R00.1 I42.9 G45.9 G47.33 Office Visit 01/21/2017 2:45p [facility] Brien Carreon, 81588 I48.0 [facility] M.D. R51 Z86.73 Office Visit 12/02/2016 1:00p [facility] Brien Carreon, 32056 G45.9 [facility] M.D. G43.B0 I48.0 H53.8 Office Visit 11/05/2016 1:00p [facility] LATOYA Hung 30081 I42.9 R53.83 G47.33 E66.9 I10 Office Visit 10/12/2016 1:20p [facility] Rob Dozier, 14266 R94.31 Balbir R53.83 G47.33 I42.9 R00.1 E03.9 Office Visit 07/13/2016 1:20p [facility] Internal Akin Kang M.D. 10092 M16.9 Medicine - [place] [address] B18.1 Office Visit 06/25/2016 11:40a [facility] Internal Akin Kang 27974 M25.551 Medicine - [place] Saul Mcgregor R19.7 E55.9 B35.1 D51.9 B18.1 B37.9 Office Visit 05/27/2016 1:00p [facility] LATOYA Hung 06218 I10 E78.2 H53.8 E66.01 Office Visit 04/30/2016 1:00p [facility] Internal Akin Kang M.D. 87368 R73.9 Medicine - [address] [address] G43.109 E66.01 I10 R53.83 E55.9 E78.2 Office Visit 04/21/2016 7:09a [facility],rach Vaughn, N.P. 62973 H53.9 Hospitalists G45.9 I10 E66.9 Office Visit 04/20/2016 1:30p [facility] [address] H53.8 R42 I10 E78.5 Office Visit 04/19/2016 7:07a [facility] 02249 H53.9 Assoc, [place] Hospitalists G45.9 E66.9 I10 Office Visit 03/19/2016 2:00p [facility] Internal Medicine Akin Kang M.D. 98444 I10 - [place] E78.5 K21.9 G47.33 Z00.00 B35.6 M16.9 E66.01 E03.9 Z12.5 Z12.11 G47.09 Office Visit 03/03/2016 1:30p [facility] Rob Dozier M.D. 73826 E78.5 I10 I48.0 E66.01 Office Visit 10/13/2015 10:20a [facility] Internal Medicine - [place], 98356 M79.1 Vilma Mcgregor Office Visit 09/30/2015 1:00p [facility] LATOYA Hung 35768 E78.5 I10 I48.0 E66.01 M79.1 Office Visit 08/29/2015 10:30a [facility] LATOYA Hung 28469 E78.5 I10 I48.0 E66.01 M79.1 G47.33 R53.83 Z68.43 Office Visit 07/30/2015 1:00p [facility] Rob Dozier M.D. 67988 E78.5 I10 I48.0 E66.01 Office Visit 05/26/2015 1:30p [facility] LATOYA Hung 00462 E78.5 I10 I48.0 E66.01 I87.2 Office Visit 03/31/2015 1:30p [facility] LATOYA Hung 19476 E78.5 I10 I48.0 E66.01 I87.2 Office Visit 03/12/2015 10:00a [facility] Rob Dozier M.D. 51004 R00.2 I10 E66.01 I87.2 Office Visit 11/29/2014 9:15a [facility] LATOYA Hung 39869 401.9 785.1 427.31 427.69 278.01 Office Visit 11/01/2014 3:37p [facility] Rob Dozier, 47382 786.50 M.D. 401.9 785.1 780.79 Office Visit 09/11/2014 11:45a [facility] Of Rob Monterokatheryn, 12303 427.69 [facility] M.DJoni 278.01 401.9 785.1 794.31 Office Visit 07/31/2014 1:15p [facility] Tabitha Morse, 45588 327.23 Services Of [facility] NITISH RN, COMPETITIVE ATHLETE- Office Visit 04/10/2013 10:40a [facility] Haley Castro M.D. 20902 786.50 Assoc, Hospitalists Office Visit 04/09/2013 10:39a [facility] [place], [address] 786.50 Assoc, Hospitalists Balbir Office Visit 03/18/2008 1:00p [facility] Rob Monterokatheryn, 01303 427.69 M.D. 401.0 794.31 278.01 Plan of Care 01/31/2018 - Jayshree Rodríguez, N.P.I10 Essential (primary) hypertensionComments: BP 130/80Follow up:OV JFM 6moRecommendations:Please try to check BP 1-2x daily and call if top number consistently >140.I49.5 Sick sinus [id number] Sleep apnea, [id number] Body mass index (BMI) 50-59.9, adultReferral: [facility], NutritionistRecommendations:Please to try to return to pool and engage in regular moderate exercise. I resent referral to [facility]
--- NOTE | 2018-02-19 02:22 | ED ---
Shortness of Breath - HPI Summary HPI Summary: Patient complains of shortness of breath, productive cough, chest fullness starting yesterday. Denies fever, sore throat, WHEELER, ear pain, neck stiffness, N/ V/D, abdominal pain, change in urine, change in BM. Medical history is HTN, HDL , hypothyroid, asthma. Nonsmoker. - History of Current Complaint Chief Complaint: EDGeneral Time Seen by Provider: 02/19/18 01:24 Hx Obtained From: Patient Onset/Duration: Gradual Onset Timing: Intermittent Episodes Lasting: Current Severity: Moderate Dyspnea At: Exertion Alleviating Factors: Upright Position Associated Signs & Symptoms: Cough (Productive), Nasal Congestion - Allergy/Home Medications Allergies/Adverse Reactions: Allergies Allergy/AdvReac Type Severity Reaction Status Date / Time hydromorphone Allergy Severe Altered Verified 12/30/17 20:04 Mental Status cephalexin Allergy Intermediate Hives Verified 12/30/17 20:04 erythromycin base Allergy Intermediate Hives Verified 12/30/17 20:04 Penicillins Allergy Intermediate Hives Verified 12/30/17 20:04 Tetracyclines Allergy Intermediate Hives Verified 12/30/17 20:04 sumatriptan Allergy Unknown Verified 12/30/17 20:04 Reaction Details Iodinated contrast media Allergy Unknown Unknown Uncoded 12/30/17 20:04 Reaction Details PMH/Surg Hx/FS Hx/Imm Hx Endocrine/Hematology History: Reports: Hx Thyroid Disease - h/o thyroid storm Denies: Hx Anticoagulant Therapy, Hx Diabetes, Other Endocrine/Hematological Disorders Cardiovascular History: Reports: Hx Hypercholesterolemia, Hx Hypertension, Other Cardiovascular Problems/Disorders - ATRIAL FIB 2000 2ndry to thyroid storm Denies: Hx Angina, Hx Coronary Artery Disease, Hx Myocardial Infarction, Hx Pacemaker/ICD, Hx Valvular Heart Disease Respiratory History: Reports: Hx Asthma - exercise induced, Hx Sleep Apnea - CPAP - no humidification (working on it)., Other Respiratory Problems/Disorders - PN X 2 WINTER 2011 Denies: Hx Chronic Obstructive Pulmonary Disease (COPD) GI History: Reports: Hx Gastroesophageal Reflux Disease, Hx Hiatal Hernia, Other GI Disorders - Hx gastritis History: Reports: Hx Kidney Stones Denies: Hx Renal Disease, Other Problems/Disorders Musculoskeletal History: Reports: Hx Arthritis, Other Musculoskeletal History - DJD Sensory History: Reports: Hx Contacts or Glasses Denies: Hx Hearing Aid, Other Sensory Impairments Opthamlomology History: Reports: Hx Contacts or Glasses Denies: Other Sensory Impairments Neurological History: Reports: Hx Headaches - "sinus headaches", Hx Migraine Denies: Hx Dementia, Hx Seizures, Other Neuro Impairments/Disorders Psychiatric History: Denies: Hx Panic Disorder, Hx Substance Abuse, Other Psychiatric Issues/ Disorders - Surgical History Surgery Procedure, Year, and Place: INGUINAL HERNIA REPAIR A CHILD - Immunization History Date of Tetanus Vaccine: utd Date of Influenza Vaccine: 2015 Infectious Disease History: No Infectious Disease History: Reports: Hx Clostridium Difficile, Hx Hepatitis - 1985, Hx Shingles Denies: Hx Human Immunodeficiency Virus (HIV), Hx Tuberculosis, Traveled Outside the [place] in Last 30 Days - Family History Known Family History: Positive: Hypertension - Social History Alcohol Use: None Alcohol Amount: quit 1985 Hx Substance Use: Yes - none currently Substance Use Type: Reports: None Substance Use Comment - Amount & Last Used: quit 1985 Hx Tobacco Use: Yes - not currently Smoking Status (MU): Former Smoker Review of Systems Constitutional: Negative Eyes: Negative ENT: Negative Cardiovascular: Negative Positive: Shortness Of Breath, Cough Gastrointestinal: Negative Genitourinary: Negative Musculoskeletal: Negative Skin: Negative Neurological: Negative Psychological: Normal All Other Systems Reviewed And Are Negative: Yes Physical Exam Triage Information Reviewed: Yes Vital Signs On Initial Exam: Initial Vitals Temp Pulse Resp BP Pulse Ox 97.6 F 73 20 155/72 97 02/19/18 01:19 02/19/18 01:19 02/19/18 01:19 02/19/18 01:19 02/19/18 01:19 Vital Signs Reviewed: Yes Appearance: Positive: Well-Appearing Skin: Positive: Warm Head/Face: Positive: Normal Head/Face Inspection Eyes: Positive: Normal Neck: Positive: Supple Respiratory/Lung Sounds: Positive: Clear to Auscultation Cardiovascular: Positive: Normal Abdomen Description: Positive: Nontender Musculoskeletal: Positive: Normal Neurological: Positive: Normal Psychiatric: Positive: Normal AVPU Assessment: Alert - [place] Coma Scale Best Eye Response: 4 - Spontaneous Best Motor Response: 6 - Obeys Commands Best Verbal Response: 5 - Oriented Coma Scale Total: 15 Diagnostics - Vital Signs Vital Signs Temp Pulse Resp BP Pulse Ox 02/19/18 01:19 97.6 F 73 20 155/72 97 - Laboratory Lab Results: Lab Results 02/19/18 02/19/18 02/19/18 Range/Units 01:36 01:36 01:36 WBC 7.8 (3.5-10.8) 10^3/ul RBC 4.89 (4.00-5.40) 10^6/ul Hgb 14.7 (14.0-18.0) g/dl Hct 43 (42-52) % MCV 89 (80-94) fL MCH 30 (27-31) pg MCHC 34 (31-36) g/dl RDW 14 (10.5-15) % Plt Count 211 (150-450) 10^3/ul MPV 6.6 L (7.4-10.4) um3 Neut % (Auto) 59.7 (38-83) % Lymph % (Auto) 30.3 (25-47) % Pickett % (Auto) 7.0 (0-7) % Eos % (Auto) 1.8 (0-6) % Baso % (Auto) 1.2 (0-2) % Absolute Neuts (auto) 4.7 (1.5-7.7) 10^3/ul Absolute Lymphs (auto) 2.4 (1.0-4.8) 10^3/ul Absolute Monos (auto) 0.5 (0-0.8) 10^3/ul Absolute Eos (auto) 0.1 (0-0.6) 10^3/ul Absolute Basos (auto) 0.1 (0-0.2) 10^3/ul Absolute Nucleated RBC 0 10^3/ul Nucleated RBC % 0.1 Sodium 139 (135-145) mmol/L Potassium TNP Chloride 106 (101-111) mmol/L Carbon Dioxide 23 (22-32) mmol/L Anion Gap 10 (2-11) mmol/L BUN 13 (6-24) mg/dL Creatinine 1.09 (0.67-1.17) mg/dL Est GFR ( Amer) 83.5 (>60) Est GFR (Non-Af Amer) 69.0 (>60) BUN/Creatinine Ratio 11.9 (8-20) Glucose 149 H (70-100) mg/dL Lactic Acid 1.7 (0.5-2.0) mmol/L Calcium 9.3 (8.6-10.3) mg/dL Total Bilirubin 0.50 (0.2-1.0) mg/dL AST TNP ALT 38 (7-52) U/L Alkaline Phosphatase 56 (34-104) U/L Troponin I 0.00 (<0.04) ng/mL C-Reactive Protein 2.14 (<8.01) mg/L Total Protein 6.7 (6.4-8.9) g/dL Albumin 4.2 (3.2-5.2) g/dL Globulin 2.5 (2-4) g/dL Albumin/Globulin Ratio 1.7 (1-3) TSH 5.10 (0.34-5.60) mcIU/mL Influenza A (Rapid) (Negative) Influenza B (Rapid) (Negative) 02/19/18 Range/Units 02:02 WBC (3.5-10.8) 10^3/ul RBC (4.00-5.40) 10^6/ul Hgb (14.0-18.0) g/dl Hct (42-52) % MCV (80-94) fL MCH (27-31) pg MCHC (31-36) g/dl RDW (10.5-15) % Plt Count (150-450) 10^3/ul MPV (7.4-10.4) um3 Neut % (Auto) (38-83) % Lymph % (Auto) (25-47) % Pickett % (Auto) (0-7) % Eos % (Auto) (0-6) % Baso % (Auto) (0-2) % Absolute Neuts (auto) (1.5-7.7) 10^3/ul Absolute Lymphs (auto) (1.0-4.8) 10^3/ul Absolute Monos (auto) (0-0.8) 10^3/ul Absolute Eos (auto) (0-0.6) 10^3/ul Absolute Basos (auto) (0-0.2) 10^3/ul Absolute Nucleated RBC 10^3/ul Nucleated RBC % Sodium (135-145) mmol/L Potassium Chloride (101-111) mmol/L Carbon Dioxide (22-32) mmol/L Anion Gap (2-11) mmol/L BUN (6-24) mg/dL Creatinine (0.67-1.17) mg/dL Est GFR ( Amer) (>60) Est GFR (Non-Af Amer) (>60) BUN/Creatinine Ratio (8-20) Glucose (70-100) mg/dL Lactic Acid (0.5-2.0) mmol/L Calcium (8.6-10.3) mg/dL Total Bilirubin (0.2-1.0) mg/dL AST ALT (7-52) U/L Alkaline Phosphatase (34-104) U/L Troponin I (<0.04) ng/mL C-Reactive Protein (<8.01) mg/L Total Protein (6.4-8.9) g/dL Albumin (3.2-5.2) g/dL Globulin (2-4) g/dL Albumin/Globulin Ratio (1-3) TSH (0.34-5.60) mcIU/mL Influenza A (Rapid) Negative (Negative) Influenza B (Rapid) Negative (Negative) Result Diagrams: 02/19/18 01:36 02/19/18 02:20 Lab Statement: Any lab studies that have been ordered have been reviewed, and results considered in the medical decision making process. - EKG 1 Cardiac Rate: NL EKG Rhythm: 1st Degree HB ST Segment: Normal Ectopy: None EKG Comparison: No Significant Change Course/Dx - Course Course Of Treatment: Patient complains of shortness of breath, productive cough , chest fullness starting yesterday. Denies fever, sore throat, WHEELER, ear pain, neck stiffness, N/V/D, abdominal pain, change in urine, change in BM. Medical history is HTN, HDL, hypothyroid, asthma. Nonsmoker. Physical exam unremarkable. Vital signs within normal limits. EKG normal. Flu negative. Labs unremarkable. Troponin negative. BNP negative. Chest x-ray negative. Patient states shortness of breath is very mild, he was just mostly concerned about possible pneumonia. Declines antibiotic as he just recently had C. difficile. Have advised patient return for any worsening symptoms. Patient understands and improves with plan - Diagnoses Provider Diagnoses: Respiratory infection Discharge - Sign-Out/Discharge Documenting (check all that apply): Patient Departure - Discharge Plan Condition: Stable Disposition: HOME Patient Education Materials: Viral Syndrome (ED) Referrals: Akin Kang MD [Primary Care Provider] - Additional Instructions: Follow-up with primary care. Return to the ED for any new or worsening symptoms - Billing Disposition and Condition Condition: STABLE Disposition: Home
[2018-02-19 04:17] VITALS: BP 150/93
--- NOTE | 2018-02-19 08:00 | RAD ---
INDICATION: Shortness of breath. COMPARISON: Comparison is made with a prior study from November 16, 2017. TECHNIQUE: 2 portable films of the chest were obtained. FINDINGS: Cardiac and mediastinal contours appear to be within normal limits. The lungs are underinflated and grossly clear. No pleural effusion is seen. IMPRESSION: NO EVIDENCE FOR ACUTE DISEASE. R0
== END 2018-02-19 04:16 | disposition home or self-care (01) ==
LOC: ED 01:08
DX: J98.8 Other specified respiratory disorders (principal); Z87.891 Personal history of nicotine dependence; E07.9 Disorder of thyroid, unspecified; E78.00 Pure hypercholesterolemia, unspecified; I10 Essential (primary) hypertension; I48.91 Unspecified atrial fibrillation; E78.5 Hyperlipidemia, unspecified; E03.9 Hypothyroidism, unspecified; J45.909 Unspecified asthma, uncomplicated; Z88.0 Allergy status to penicillin; Z88.5 Allergy status to narcotic agent
CPT/HCPCS: 36415; 71045; 80053; 83605; 84443; 84484; 85025; 86140; 93005; 99282

== ENCOUNTER 2018-04-09 18:12 | Emergency (ER) | payer BC, OTHER ==
--- NOTE | 2018-04-09 19:13 | ED ---
Back Pain - HPI Summary HPI Summary: This patient is a 58 year old M presenting to [facility] with a chief complaint of lower back pain since 1 week ago. Patient notes that the pain radiates to the back of his left thigh, left calf, left lewis, and left knee pain. The patient rates the pain 8/10 in severity. Symptoms aggravated by direct pressure. Symptoms alleviated by nothing. Patient reports neuropathy in feet. Patient denies fever or dysuria. Patient notes that he has tried icing, Tylenol, stretching, and hot showers but they have not alleviated his symptoms. Patient notes that his pain is slightly decreased when use wraps his left knee in an JAMIR bandage. Patient notes that he regularly lifts. 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 Patient takes ASA daily. - History of Current Complaint Chief Complaint: EDBackInjuryPain Stated Complaint: BACK AND LEFT KNEE PAIN Time Seen by Provider: 04/09/18 19:00 Hx Obtained From: Patient Onset/Duration: Gradual Onset, Lasting Days - 1 week, Still Present Onset/Duration: Started Days Ago Timing: Constant Back Pain Location: Radiates To - lower back, back left thigh, left lewis, left knee, left calf Severity Initially: Moderate Severity Currently: Moderate Pain Intensity: 8 Pain Scale Used: 0-10 Numeric Aggravating Symptom(s): Other - direct pressure Alleviating Symptom(s): Nothing Associated Signs And Symptoms: Positive: Other - neuropathy in feet. Negative: Bladder Incontinence, Bowel Incontinence - Allergies/Home Medications Allergies/Adverse Reactions: Allergies Allergy/AdvReac Type Severity Reaction Status Date / Time hydromorphone Allergy Severe Altered Verified 04/09/18 18:22 Mental Status cephalexin Allergy Intermediate Hives Verified 04/09/18 18:22 erythromycin base Allergy Intermediate Hives Verified 04/09/18 18:22 Penicillins Allergy Intermediate Hives Verified 04/09/18 18:22 Tetracyclines Allergy Intermediate Hives Verified 04/09/18 18:22 sumatriptan Allergy Unknown Verified 04/09/18 18:22 Reaction Details Iodinated contrast media Allergy Unknown Unknown Uncoded 04/09/18 18:22 Reaction Details Home Medications: Home Medications Acetaminophen [Acetaminophen Extra Strength] 500 mg PO DAILY PRN 04/09/18 [ History Confirmed 04/09/18] PMH/Surg Hx/FS Hx/Imm Hx Endocrine/Hematology History: Reports: Hx Thyroid Disease - h/o thyroid storm Denies: Hx Anticoagulant Therapy, Hx Diabetes, Other Endocrine/Hematological Disorders Cardiovascular History: Reports: Hx Atrial Fibrillation, Hx Hypercholesterolemia , Hx Hypertension, Other Cardiovascular Problems/Disorders - ATRIAL FIB 2000 2ndry to thyroid storm Denies: Hx Angina, Hx Coronary Artery Disease, Hx Myocardial Infarction, Hx Pacemaker/ICD, Hx Valvular Heart Disease Respiratory History: Reports: Hx Asthma - exercise induced, Hx Sleep Apnea - CPAP - no humidification (working on it)., Other Respiratory Problems/Disorders - PN X 2 WINTER 2011 Denies: Hx Chronic Obstructive Pulmonary Disease (COPD) GI History: Reports: Hx Gastroesophageal Reflux Disease, Hx Hiatal Hernia, Other GI Disorders - Hx gastritis History: Reports: Hx Kidney Stones Denies: Hx Renal Disease, Other Problems/Disorders Musculoskeletal History: Reports: Hx Arthritis - 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 , arthritis in neck, Other Musculoskeletal History - DJD Sensory History: Reports: Hx Contacts or Glasses Denies: Hx Hearing Aid, Other Sensory Impairments Opthamlomology History: Reports: Hx Contacts or Glasses Denies: Other Sensory Impairments Neurological History: Reports: Hx Headaches - "sinus headaches", Hx Migraine Denies: Hx Dementia, Hx Seizures, Other Neuro Impairments/Disorders Psychiatric History: Denies: Hx Panic Disorder, Hx Substance Abuse, Other Psychiatric Issues/ Disorders - Surgical History Surgery Procedure, Year, and Place: INGUINAL HERNIA REPAIR A CHILD, 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 - Immunization History Date of Tetanus Vaccine: utd Date of Influenza Vaccine: 2015 Infectious Disease History: No Infectious Disease History: Reports: Hx Clostridium Difficile, Hx Hepatitis - 1985, Hx Shingles Denies: Hx Human Immunodeficiency Virus (HIV), Hx Tuberculosis, Traveled Outside the [place] in Last 30 Days - Family History Known Family History: Positive: Hypertension - Social History Alcohol Use: None Alcohol Amount: quit 1985 Hx Substance Use: Yes - none currently Substance Use Type: Reports: None Substance Use Comment - Amount & Last Used: quit 1985 Hx Tobacco Use: Yes - not currently Smoking Status (MU): Former Smoker Review of Systems Negative: Fever Negative: Epistaxis Negative: dysuria Positive: Arthralgia - left knee pain, Myalgia - lower back pain, left thigh pain, left lewis pain, left calf pain Neurological: Other - neuropathy in feet All Other Systems Reviewed And Are Negative: Yes Physical Exam - Summary Physical Exam Summary: Appearance: Well-appearing, morbidly obese, lying in bed comfortably Skin: Warm, dry, no obvious rash Eyes: sclera anicteric, no conjunctival pallor ENT: mucous membranes moist, pharynx appears normal Neck: Supple, nontender Respiratory: Clear to auscultation, no signs of respiratory distress Cardiovascular: Normal S1, S2. No murmurs. Normal distal pulses in tibial and radial bilaterally. Abdomen: Soft, nontender, normal active bowel sounds present Musculoskeletal: Normal, Strength/ROM Intact, left knee is not warm, swollen, no effusion, no focal tenderness, good strength in lower extremities, deep tendon reflexes normal Neurological: A&Ox3, awake and alert, mentation is normal, speech is fluent and appropriate Psychiatric: affect is normal, does not appear anxious or depressed Triage Information Reviewed: Yes Vital Signs On Initial Exam: Initial Vitals Temp Pulse Resp BP Pulse Ox 98.8 F 71 18 152/80 93 04/09/18 18:17 04/09/18 18:17 04/09/18 18:17 04/09/18 18:17 04/09/18 18:17 Vital Signs Reviewed: Yes Diagnostics - Vital Signs Vital Signs Temp Pulse Resp BP Pulse Ox 04/09/18 18:17 98.8 F 71 18 152/80 93 - Laboratory Lab Statement: Any lab studies that have been ordered have been reviewed, and results considered in the medical decision making process. Back Pain Course/Dx - Course Course Of Treatment: This patient is a 58 year old M presenting to [facility] with a chief complaint of lower back pain since 1 week ago. Patient notes that the pain radiates to the back of his left thigh, left calf, left lewis, and left knee pain. The patient rates the pain 8/10 in severity. Patient reports neuropathy in feet. Patient denies fever or dysuria. 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 Patient will be discharged home with dx sciatica and left knee osteoarthritis and follow up from PCP. The patient is agreeable with this plan. - Diagnoses Provider Diagnoses: Sciatica, Osteoarthritis of left knee Discharge - Sign-Out/Discharge Documenting (check all that apply): Patient Departure - Discharge Plan Condition: Stable Disposition: HOME Patient Education Materials: Acute Low Back Pain (ED) Referrals: Akin Kang MD [Primary Care Provider] - Additional Instructions: I recommend watching Dr. Marv Cox' youtube video. It has a lot of good information and recommendations on your type of low back pain. - Attestation Statements Document Initiated by Scribe: Yes Documenting Scribe: Nayana Foster Provider For Whom Marco Antonioibe is Documenting (Include Credential): Lucio Rodgers MD Scribe Attestation: I, Nayana Foster, scribed for Lucio Rodgesr MD on 04/09/18 at 1920. Status of Scribe Document: Ready
[2018-04-09 19:52] VITALS: BP 132/75
== END 2018-04-09 19:51 | disposition home or self-care (01) ==
LOC: ED 18:12
DX: M54.30 Sciatica, unspecified side (principal); M17.12 Unilateral primary osteoarthritis, left knee; M54.5 Low back pain; Z88.0 Allergy status to penicillin; Z87.891 Personal history of nicotine dependence; R51 Headache
CPT/HCPCS: 99282

== ENCOUNTER 2018-06-04 19:35 | Emergency (ER) | payer SELFPAY ==
[2018-06-04] MEDS ORDERED: Ibuprofen TAB* 800 MG PO ONE (21:38)
[2018-06-04] MEDS ORDERED: Albuterol/Ipratropium NEB.SOL* Albuterol 2.5 MG/Ipratropium 0.5 MG 3 ML INH ONE (21:39)
[2018-06-04] MEDS ORDERED: Albuterol 2.5 MG/3 ML NEB.SOL* (0.083%) INH ONE (21:40)
--- NOTE | 2018-06-04 21:57 | ED ---
HPI Chest Pain - HPI Summary HPI Summary: This patient is a 58 year old M presenting to [facility] with a chief complaint of pleuritic chest pain and SOB since 1 day ago. The patient rates the pain 7/10 in severity. Symptoms aggravated by nothing. Symptoms alleviated by nothing. Patient reports nasal congestion and nasal discharge. Patient also reports that he had a fever of 100 degrees F 1 day ago but it has since resolved. Patient denies cough. - History of Current Complaint Chief Complaint: EDChestWallPain Time Seen by Provider: 06/04/18 21:32 Hx Obtained From: Patient Onset/Duration: Started Days Ago - 1 day ago, Atraumatic, Still Present Timing: Constant Initial Severity: Moderate Current Severity: Moderate Pain Intensity: 7 Pain Scale Used: 0-10 Numeric Chest Pain Location: Diffuse Character: Dyspnea at Rest Aggravating Factor(s): Nothing Alleviating Factor(s): Nothing Associated Signs and Symptoms: Positive: Chest Pain - pleuritic CP, Shortness of Breath, Fever, Nasal Congestion. Negative: Cough - Additional Pertinent History Primary Care Physician: ABE - Allergy/Home Medications Allergies/Adverse Reactions: Allergies Allergy/AdvReac Type Severity Reaction Status Date / Time hydromorphone Allergy Severe Altered Verified 06/04/18 19:45 Mental Status cephalexin Allergy Intermediate Hives Verified 06/04/18 19:45 erythromycin base Allergy Intermediate Hives Verified 06/04/18 19:45 Penicillins Allergy Intermediate Hives Verified 06/04/18 19:45 Tetracyclines Allergy Intermediate Hives Verified 06/04/18 19:45 sumatriptan Allergy Unknown Verified 06/04/18 19:45 Reaction Details Iodinated contrast media Allergy Unknown Unknown Uncoded 04/09/18 18:22 Reaction Details PMH/Surg Hx/FS Hx/Imm Hx Endocrine/Hematology History: Reports: Hx Thyroid Disease - h/o thyroid storm Denies: Hx Anticoagulant Therapy, Hx Diabetes, Other Endocrine/Hematological Disorders Cardiovascular History: Reports: Hx Atrial Fibrillation, Hx Hypercholesterolemia , Hx Hypertension, Other Cardiovascular Problems/Disorders - ATRIAL FIB 2000 2ndry to thyroid storm Denies: Hx Angina, Hx Coronary Artery Disease, Hx Myocardial Infarction, Hx Pacemaker/ICD, Hx Valvular Heart Disease Respiratory History: Reports: Hx Asthma - exercise induced, Hx Sleep Apnea - CPAP - no humidification (working on it)., Other Respiratory Problems/Disorders - PN X 2 WINTER 2011 Denies: Hx Chronic Obstructive Pulmonary Disease (COPD) GI History: Reports: Hx Gastroesophageal Reflux Disease, Hx Hiatal Hernia, Other GI Disorders - Hx gastritis History: Reports: Hx Kidney Stones Denies: Hx Renal Disease, Other Problems/Disorders Musculoskeletal History: Reports: Hx Arthritis - 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 , arthritis in neck, Other Musculoskeletal History - DJD Sensory History: Reports: Hx Contacts or Glasses Denies: Hx Hearing Aid, Other Sensory Impairments Opthamlomology History: Reports: Hx Contacts or Glasses Denies: Other Sensory Impairments Neurological History: Reports: Hx Headaches - "sinus headaches", Hx Migraine Denies: Hx Dementia, Hx Seizures, Other Neuro Impairments/Disorders Psychiatric History: Denies: Hx Panic Disorder, Hx Substance Abuse, Other Psychiatric Issues/ Disorders - Surgical History Surgery Procedure, Year, and Place: INGUINAL HERNIA REPAIR A CHILD, 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 - Immunization History Date of Tetanus Vaccine: utd Date of Influenza Vaccine: 2015 Infectious Disease History: No Infectious Disease History: Reports: Hx Clostridium Difficile, Hx Hepatitis - 1985, Hx Shingles Denies: Hx Human Immunodeficiency Virus (HIV), Hx Tuberculosis, Traveled Outside the [place] in Last 30 Days - Family History Known Family History: Positive: Hypertension - Social History Alcohol Use: None Alcohol Amount: quit 1985 Hx Substance Use: Yes - none currently Substance Use Type: Reports: None Substance Use Comment - Amount & Last Used: quit 1985 Hx Tobacco Use: Yes - not currently Smoking Status (MU): Former Smoker Review of Systems Positive: Fever ENT: Other - nasal congestion Positive: Nasal Discharge Positive: Chest Pain Positive: Shortness Of Breath. Negative: Cough Negative: Vomiting All Other Systems Reviewed And Are Negative: Yes Physical Exam - Summary Physical Exam Summary: VITAL SIGNS: Reviewed. GENERAL: Patient is a morbidly obese MALE who is lying comfortable in the stretcher. Patient is not in any acute respiratory distress. HEAD AND FACE: No signs of trauma. No ecchymosis, hematomas or skull depressions. No sinus tenderness. EYES: PERRLA, EOMI x 2, No injected conjunctiva, no nystagmus. EARS: Hearing grossly intact. Ear canals and tympanic membranes are within normal limits. MOUTH: Oropharynx within normal limits. NECK: Supple, trachea is midline, no adenopathy, no JVD, no carotid bruit, no c- spine tenderness, neck with full ROM. CHEST: Symmetric, no tenderness at palpation LUNGS: Decreased breath sounds bilaterally. No wheezing or crackles. CVS: Regular rate and rhythm, S1 and S2 present, no murmurs or gallops appreciated. ABDOMEN: Soft, non-tender. No signs of distention. No rebound no guarding, and no masses palpated. Bowel sounds are normal. EXTREMITIES: FROM in all major joints, no edema, no cyanosis or clubbing. NEURO: Alert and oriented x 3. No acute neurological deficits. Speech is normal and follows commands. SKIN: Dry and warm Triage Information Reviewed: Yes Vital Signs On Initial Exam: Initial Vitals Temp Pulse Resp BP Pulse Ox 99.2 F 69 20 158/82 94 06/04/18 19:42 06/04/18 19:42 06/04/18 19:42 06/04/18 19:42 06/04/18 19:42 Vital Signs Reviewed: Yes Diagnostics - Vital Signs Vital Signs Temp Pulse Resp BP Pulse Ox 06/04/18 19:42 99.2 F 69 20 158/82 94 - Laboratory Lab Statement: Any lab studies that have been ordered have been reviewed, and results considered in the medical decision making process. - Radiology CXR Radiology Interpretation Completed By: ED Physician - Dr. Smith, pending official report Summary of Radiographic Findings: no acute process - EKG 19:45 Cardiac Rate: NL - at 67 bpm EKG Rhythm: Sinus Rhythm ST Segment: Normal Ectopy: None Summary of EKG Findings: sinus rhythm at 67 bpm with nml interval, nml axis, and no ischemic changes. Chest Pain Course/Dx - Course Course Of Treatment: This patient is a 58 year old M presenting to [facility] with a chief complaint of pleuritic chest pain and SOB since 1 day ago. Patient reports nasal congestion, fever, and nasal discharge. Patient denies cough. An EKG reveals sinus rhythm at 67 bpm with nml interval, nml axis, and no ischemic changes. CXR reveals, per ED physician, no acute process. In the ED course the patient was given Motrin. Patient will be discharged home with follow up from PCP. Dx viral syndrome. Advised patient to take Tylenol as needed. The patient is agreeable with this plan. - Diagnoses Provider Diagnoses: Viral syndrome Discharge - Sign-Out/Discharge Documenting (check all that apply): Patient Departure - discharge home Patient Received Moderate/Deep Sedation with Procedure: No - Discharge Plan Condition: Stable Disposition: HOME Patient Education Materials: Viral Syndrome (ED) Forms: *Work Release Referrals: Akin Kang MD [Primary Care Provider] - Additional Instructions: Follow up with primary care physician in 1-2 days. Take Tylenol as needed. Return to the emergency department with any new or worsening symptoms. - Attestation Statements Document Initiated by Scribe: Yes Documenting Scribe: Nayana Foster Provider For Whom Scribe is Documenting (Include Credential): Mary Smith MD Scribe Attestation: Nayana Couch, scribed for Mary Smith MD on 06/04/18 at [id number]. Status of Scribe Document: Ready
[2018-06-04] MEDS ORDERED: Acetaminophen TAB* 325 MG ONE (22:00)
[2018-06-04] MEDS ORDERED: Acetaminophen TAB* 325 MG PO ONE (22:07)
[2018-06-04 22:19] LABS: Influenza A Molecular NEGATIVE (Negative); Influenza B Molecular NEGATIVE (Negative)
[2018-06-04 22:58] VITALS: BP 160/76
== END 2018-06-04 23:04 | disposition home or self-care (01) ==
LOC: ED 19:35
DX: B34.9 Viral infection, unspecified (principal); Z88.5 Allergy status to narcotic agent; Z88.0 Allergy status to penicillin; Z88.8 Allergy status to other drugs, medicaments and biological substances; Z88.1 Allergy status to other antibiotic agents; Z91.041 Radiographic dye allergy status; Z87.891 Personal history of nicotine dependence
CPT/HCPCS: 71045; 93005; 99283; A9270-GY

== ENCOUNTER 2018-07-18 21:02 | Emergency (ER) | payer SELFPAY ==
--- OUTSIDE RECORDS SUMMARY | 2018-07-18 21:09 | XMS REPORT | Continuity of Care Document ---
:1960 External Reference #:[id number] Author Name Mirna Simon Care Team Providers Name Role Phone Akin Kang MD Primary Care Physician Unavailable Payers Date Identification Numbers Payment Provider Subscriber Effective: 2017 Policy Number: [id number] BS [employer]ets Nargis Gomez Expires: 2018 PayID: [id number] [address] [address] [place] [address] Effective: 2017 Policy Number: [id number] [employer]ets Nargis Gomez Expires: 2018 PayID: [id number] [facility] [address] [place] [address] Effective: 2017 Policy Number: [id number] Medicaid Nargis Gomez Expires: 2017 Group Name: Veronica Glynn 4444 PayID: [id number] [place] [address] Effective: 2017 Policy Number: [id number] BS Ced Gomez Expires: 2017 PayID: [id number] [place] [address] Effective: 2017 Policy Number: [id number] Medicaid Nargis Gomez Expires: 2017 Group Name: Veronica Martin [address] PayID: [id number] [place] [address] Advance Directives Description No Information Available Problems Date Description Provider Status Onset: 07/31/2014 Obstructive sleep apnea of adult Tabitha Lopez DNP, RN, Active [employer] Onset: 03/19/2016 Essential hypertension Akin Kang M.D. [...] M.D. Active Family History Date Family Member(s) Observation Comments General MGM thryoid issues General Diabetes General Hypertension General Heart Disease General Cancer Father from lung cancer/emphysema at age 87 ; was smoker Father Lung Cancer 5.2015: father at 87 of lung cancer after smoking. His mother at 71 of ovarian cancer. He has 4 siblings who are alive and well. 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 Tobacco Use Start: Unknown in 1989 Tobacco Use Start: Unknown End: Former Cigarette Smoker Unknown ETOH Use quit in 1985 ETOH Use Has consumed alcohol in the past Recreational Drug Use quit in 1985 Tobacco Use Start: Unknown End: Patient is a former Unknown smoker Recreational Drug Use Formerly used Cocaine pt quit in 1985 regularly Tobacco Use Start: Unknown End: Patient is a former Quit in 1989, Unknown smoker smoked for 10-15 years Recreational Drug Use Formerly used quit 1985 Amphetamines regularly Tobacco Use Start: Unknown Heavy tobacco smoker (more than 10 cigarettes/day) Recreational Drug Use Formerly used quit 1985 Barbiturates regularly Recreational Drug Use Formerly used Marijuana quit 1985 regularly Smoking Status Reviewed: 06/14/18 Heavy tobacco smoker (more than 10 cigarettes/day) Exercise Type/Frequency Exercises sporadically Allergies, Adverse Reactions, Alerts Date Description Reaction Status Severity Comments 07/31/2014 Tricyclic Antidepressants Active 09/11/2014 Penicillin Anaphylaxis Active Severe 09/11/2014 Keflex Anaphylaxis Active Severe 09/11/2014 Tetracycline Anaphylaxis Active Severe 09/11/2014 Erythromycin Urticaria Active Moderate 05/26/2017 Imitrex Active Medications Medication Date Status Form Strength Qnty SIG Indications Ordering Provider Flunisolide 06/15 Active Solution 25mcg/Act 25ml 2 sprays R09.81 Félix (0.025%) each nostril Angeline, [employer] twice daily Terbinafine 06/14 Active Tablets 250mg 28tab 1 by mouth B37.2 Félix HCL /2018 s every day VERONIKA Marcus for 4 weeks Co Q10 10/18 Active Capsules 100mg 30cap take 1 by E78.5 Félix s mouth 3 x Angeline [employer] week Meclizine HCL 04/14 Active Tablets 12.5mg 60tab 1-2 tab two R26.81 Félix s times a day Angeline [employer] as needed Rosuvastatin 05/27 Active Tablets 5mg 30tab 1/2 tablet E78.2 Rob Calcium s five times Farrah Dozier, per week M.D. Compression 05/27 Active Misc 1Pair knee high E66.01 Rob Stockings /2016 closed toe Farrah Dozier light M.D. compression -please measure for size Ketoconazole 03/19 Active Cream 2% 120gm apply twice B35.6 Tubac /2016 a day as Pachikara, needed M.D. Clonazepam 03/19 Active Tablets 0.5mg 10tab 1 tab at G47.09 Félix /2015 s bedtime as VERONIKA Marcus needed Amlodipine 03/31 Active Tablets 2.5mg 180ta 1 tab twice I10 Jayshree S. Besylate /2014 bs daily Arnie Rodríguezt For Men 03/12 Active Misc 2Pair 1 pair daily I87.2 Rob 15-20MMHG/Knee as needed High Catina/Closed M.DJoni Toe/Large Magnesium 11/19 Active Tablets 400mg 90tab 1 by mouth Rob Oxide s twice daily Farrah Dozier M.D. Inspra 11/01 Active Tablets 25mg 180ta 2 by mouth Rob /2014 bs every day Farrah Dozier M.D. Aspir-81 07/[address] 81mg 1 by mouth Unknown every day Levothyroxine 07/30 Active Tablets 200mcg 30tab 1 by mouth Félix Sodium s every day VERONIKA Marcus Gas-X Extra Active Capsules 125mg one cap by Unknown Strength /0000 mouth every 6 hours as needed for abdominal pain Stress 500 Active Tablets PO once Unknown B-Complex/Zinc /0000 daily Acetaminophen Active Tablets 500mg 1 gm po prn Unknown / Vitamin D3 Active 2000Iu 1 tablet Unknown / daily Guaifenesin Active 10 cc every Unknown /0000 4 hrs as needed Zantac Active Tablets 150mg 1 by mouth Unknown / every day prn Riboflavin Active Capsules 400mg 1 po qd, pt to slowly titrate dose Zoloft Active Tablets 100mg 45tab 1 1/2 tabs Félix s by mouth VERONIKA Marcus daily Nasonex 06/14 Hx Suspension 50mcg/Act 17uni spray 1 R09.81 Félix ts sprays in VERONIKA Marcus - each nostril 06/15 twice daily Golytely 01/10 Hx Solution 236gm 1unit drink /2 Yovani D. Rec s bottle the Keren, - night before M.D. 01/30 Vancomycin HCL 10/25 Hx Capsules 125mg 56cap 1 po 4 times A04.71 Yovani D. /2017 s daily Keren, - M.D. 01/30 Metronidazole 10/11 Hx Tablets 500mg 30tab 1 by mouth s three timses Pachika, - a day/no M.D. 10/11 until 5 days after you are done. Vancomycin HCL 10/11 Hx Capsules 125mg 56cap 1 cap 4 s times a day Jorge Luis, - x14 days M.D. 10/25 Vancocin HCL 08/04 Hx Capsules 125mg 40cap 1 tab qid Darius s for 10 days Will Villalobos, - M.DJoni,FACP 08/14 Metronidazole 08/03 Hx Tablets 500mg 63tab take one by s mouth three Teressa, - times daily M.D. 08/04 for 21 Metronidazole 06/24 Hx Tablets 500mg 21tab three times s a day for 21 Teressa, - days M.D. 07/15 Diovan 06/08 Hx Tablets 40mg 30tab 1 / mouth I10 s every day Farrah Dozier, - M.D. 06/24 Valium 04/14 Hx Tablets 5mg 2tabs use 1h R26.81 before mri, Jorge Luis, - may repeat M.D. 06/24 after 1h if needed Clindamycin 03/22 Hx Capsules 300mg 40cap 1 tabs by J01.90 Akin s mouth every Pachikara, - 6h M.D. 05/24 Lamisil 06/28 Hx Tablets 250mg 30tab 1 tab by s mouth every Pachikara, - day for 12 M.D. 03/22 wks Pt /2016 states he did not start (01/21/17) plans on taking in the future Clotrimazole 06/25 Hx Cream 1% 45gm apply twice B37.9 daily (not Pachikara, - using) M.D. 01/20 Protonix 08/[address] 20mg 30tab 1 by mouth s every day Jorge Luis, - (Pt states M.D. 03/19 he is taking it only as prn) Crestor 04/07 Hx Tablets 5mg 30tab 1/2 tab by s mouth Farrah Dozier, - mondays, M.D. Wednesdays, Fridays only (on hold-per pt) Zocor 03/31 Hx Tablets 10mg 30tab Take 1 tab s po QHS Farrah Dozier, - M.D. 04/07 Effer-K 07/10 Hx Tablets 20Meq 100ta 1 by mouth 427.69 Efferv bs once a day Farrah Dozier, - hold as of M.D. 09/29 4.6. Toprol XL 10 Hx Tablets ER 25mg 45tab 1/2 tab by 24HR s mouth every Farrah Dozier, - other day M.D. 08/03 ( Effer-K 05/20 Hx Tablets 20Meq 60tab 1 by mouth 427.69 Efferv s twice day Farrah Dozier, - M.D. 11/01 Toprol XL 20 Hx Tablets ER 25mg 200ta 2 by mouth 24HR bs qd Joni Dozier, - M.D. 11/01 Tylenol 07/31 Hx as needed Jessica, - DNP, RN, 03/11 [facility]- Toprol XL 07 Hx Tablets ER 75mg 1 by mouth 24HR every day - 11/28 Zoloft 07/30 Hx Tablets 150mg 1 by mouth every day - 03/11 Pantoprazole 07/[address] 40mg 1 by mouth Unknown every day - 11/19 Zocor 07/30 Hx Tablets 20mg 1 by mouth every night - at bedtime 03/11 Stress Tab 07/30 Hx Tablets every day by mouth - 11/28 Levothyroxine 00 Hx Tablets 200mg 1 by mouth Unknown Sodium / every day - 03/11 Toprol XL 00 Hx Tablets ER 75mg 1 by mouth Unknown / 24HR every day - 09/11 Protonix [address] 40mg 1 by mouth Rob /0000 every other Farrah Dozier, - day M.DJoni 08/11 Zocor 00 Hx Tablets 20mg 1 by mouth Unknown /0000 every night - at bedtime 03/31 hold as 11.18.15 Aspir-[address] 81mg 1 by mouth Unknown /0000 every day - 11/28 Apap Hx Tablets 325mg 2 tabs by Unknown /0000 mouth every - 6h as needed 05/14 Levothyroxine Hx Tablets 200mcg Unknown Sodium /0000 - 05/24 Acidophilus Hx Tablets 1 by mouth Unknown /0000 every day - 01/30 Immunizations CPT Code Status Date Vaccine Lot # 71374 Given 02/21/2018 Influenza Virus Vaccine, Quadrivalent, Split, Preservative Free [id number] Given 07/31/2014 Fluvirin Im 3Yrs And Older Vital Signs Date Vital Result Comment 06/14/2018 1:22pm Height 71 inches 5'11" Weight 369.50 lb Heart Rate 66 /min BP Systolic 132 mmHg BP Diastolic 70 mmHg Body Temperature 98.8 F O2 % BldC Oximetry 97 % BMI (Body Mass Index) 51.5 kg/m2 01/31/2018 3:22pm Height 71 inches 5'11" Heart Rate 60 /min BP Systolic Sitting 130 mmHg BP Diastolic Sitting 70 mmHg Respiratory Rate 16 /min Ejection Fraction 55-60% 10/29/16 echo 01/04/2018 10:58am Height 71 inches 5'11" Weight 370.38 lb Heart Rate 60 /min BP Systolic Sitting 134 mmHg BP Diastolic Sitting 70 mmHg Respiratory Rate 14 /min Body Temperature 98.2 F BMI (Body Mass Index) 51.7 kg/m2 10/25/2017 11:22am Height 71 inches 5'11" Weight 366.50 lb Heart Rate 72 /min BP Systolic Sitting 126 mmHg BP Diastolic Sitting 62 mmHg Respiratory Rate 14 /min Body Temperature 97.9 F BMI (Body Mass Index) 51.1 kg/m2 10/18/2017 3:34pm Height 71 inches 5'11" Weight 365.50 lb Heart Rate 70 /min BP Systolic Sitting 132 mmHg Lianne large cuff BP Diastolic Sitting 70 mmHg Lianne large cuff BP Systolic Standing 130 mmHg Lianne large cuff BP Diastolic Standing 68 mmHg Lianne large cuff Respiratory Rate 18 /min BMI (Body Mass Index) 51.0 kg/m2 08/03/2017 4:07pm Weight 360.38 lb Heart Rate 68 /min BP Systolic Sitting 132 mmHg BP Diastolic Sitting 82 mmHg Body Temperature 97.9 F O2 % BldC Oximetry 96 % 07/29/2017 1:16pm Height 71 inches 5'11" Weight 369.00 lb with shoes Heart Rate 64 /min BP Systolic Sitting 124 mmHg Lue lg cuff BP Diastolic Sitting 70 mmHg Lue lg cuff BP Systolic Standing 140 mmHg Lue lg cuff BP Diastolic Standing 86 mmHg Lue lg cuff Respiratory Rate 16 /min BMI (Body Mass Index) 51.5 kg/m2 Ejection Fraction 55-60% date 10/29/2016 ECHO 07/01/2017 2:58pm Height 71 inches 5'11" Weight 368.00 lb with shoes Heart Rate 64 /min BP Systolic Sitting 146 mmHg Lue lrg cuff BP Diastolic Sitting 76 mmHg Lue lrg cuff BP Systolic Standing 140 mmHg Lue lrg cuff BP Diastolic Standing 80 mmHg Lue lrg cuff Respiratory Rate 18 /min BMI (Body Mass Index) 51.3 kg/m2 Ejection Fraction 55-60% 10/29/2016-echo 06/24/2017 2:53pm Weight 366.00 lb Heart Rate 73 /min BP Systolic Sitting 150 mmHg BP Diastolic Sitting 74 mmHg Body Temperature 98.7 F O2 % BldC Oximetry 95 % 06/08/2017 3:20pm Height 71 inches 5'11" Weight 369.25 lb with shoes Heart Rate 62 /min BP Systolic 138 mmHg L/Arm LG Cuff BP Diastolic 80 mmHg L/Arm LG Cuff BMI (Body Mass Index) 51.5 kg/m2 Ejection Fraction 55-60% Echocardiogram 10/29/2016 05/26/2017 3:02pm Height 71 inches 5'11" Weight 350.00 lb Heart Rate 60 /min BP Systolic 140 mmHg BP Diastolic 78 mmHg Respiratory Rate 16 /min BMI (Body Mass Index) 48.8 kg/m2 04/14/2017 11:35am Weight 361.38 lb Heart Rate 60 /min BP Systolic Sitting 132 mmHg BP Diastolic Sitting 72 mmHg O2 % BldC Oximetry 96 % 03/22/2017 10:12am Weight 361.50 lb Heart Rate 60 /min BP Systolic Sitting 142 mmHg BP Diastolic Sitting 78 mmHg Body Temperature 97.7 F O2 % BldC Oximetry 96 % 03/15/2017 1:22pm Height 71 inches 5'11" Weight 350.00 lb BP Systolic 148 mmHg BP Diastolic 78 mmHg Respiratory Rate 15 /min Pain Level 4 BMI (Body Mass Index) 48.8 kg/m2 02/08/2017 3:26pm Height 71 inches 5'11" Weight 363.25 lb with shoes Heart Rate 70 /min BP Systolic Sitting 146 mmHg LA lrg cuff BP Diastolic Sitting 76 mmHg LA lrg cuff BMI (Body Mass Index) 50.7 kg/m2 Ejection Fraction 55%-60% echo 10/29/16 01/21/2017 2:50pm Height 71 inches 5'11" Weight 350.00 lb Heart Rate 64 /min BP Systolic 124 mmHg BP Diastolic 80 mmHg Respiratory Rate 16 /min BMI (Body Mass Index) 48.8 kg/m2 12/02/2016 1:13pm Height 71 inches 5'11" Weight 360.00 lb Heart Rate 68 /min BP Systolic Sitting 130 mmHg BP Diastolic Sitting 90 mmHg Respiratory Rate 16 /min BMI (Body Mass Index) 50.2 kg/m2 11/05/2016 1:00pm Weight 360.00 lb with shoes Heart Rate 62 /min BP Systolic Sitting 126 mmHg Rue lg cuff BP Diastolic Sitting 80 mmHg Rue lg cuff BP Systolic Standing 134 mmHg Rue lg cuff BP Diastolic Standing 70 mmHg Rue lg cuff Respiratory Rate 16 /min Ejection Fraction 55-60% date 10/29/16 ECHO 10/12/2016 1:31pm Height 71 inches 5'11" Weight 365.00 lb w/shoes Heart Rate 56 /min BP Systolic 128 mmHg LA lrg cuff BP Diastolic 84 mmHg LA lrg cuff BMI (Body Mass Index) 50.9 kg/m2 Ejection Fraction 45-50% Echo 04/20/16 07/13/2016 1:26pm Weight 359.25 lb Heart Rate 64 /min BP Systolic Sitting 148 mmHg BP Diastolic Sitting 80 mmHg Body Temperature 98.0 F O2 % BldC Oximetry 97 % 06/25/2016 11:42am Height 70 inches 5'10" Weight 358.12 lb Heart Rate 70 /min BP Systolic Sitting 152 mmHg BP Diastolic Sitting 78 mmHg Body Temperature 97.9 F O2 % BldC Oximetry 96 % BMI (Body Mass Index) 51.4 kg/m2 05/27/2016 12:54pm Height 70 inches 5'10" Weight 365.00 lb Heart Rate 66 /min BP Systolic Sitting 146 mmHg LA lrg cuff BP Diastolic Sitting 80 mmHg LA lrg cuff BMI (Body Mass Index) 52.4 kg/m2 Ejection Fraction 45% - 50% echo 04/20/16 04/30/2016 2:11pm Weight 367.38 lb Heart Rate 69 /min BP Systolic Sitting 144 mmHg BP Diastolic Sitting 78 mmHg Body Temperature 98.0 F O2 % BldC Oximetry 97 % 03/19/2016 2:08pm Height 70 inches 5'10" Weight 371.00 lb Heart Rate 66 /min BP Systolic Sitting 110 mmHg BP Diastolic Sitting 50 mmHg O2 % BldC Oximetry 98 % BMI (Body Mass Index) 53.2 kg/m2 03/03/2016 1:21pm Weight 371.75 lb with shoes Heart Rate 64 /min BP Systolic Sitting 158 mmHg Ra lrg cuff BP Diastolic Sitting 84 mmHg Ra lrg cuff BP Systolic Standing 128 mmHg la repeat sitting BP Diastolic Standing 68 mmHg la repeat sitting Ejection Fraction 51% NLM 11/01/14 10/13/2015 10:17am Weight 352.00 lb Heart Rate 64 /min BP Systolic Sitting 151 mmHg BP Diastolic Sitting 76 mmHg Body Temperature 98.2 F 09/30/2015 12:56pm Height 70 inches 5'10" Weight 359.00 lb with shoes Heart Rate 66 /min BP Systolic 142 mmHg LA lrg cuff BP Diastolic 84 mmHg LA lrg cuff BMI (Body Mass Index) 51.5 kg/m2 Ejection Fraction 51% NLM 11/01/14 08/29/2015 10:18am Height 70 inches 5'10" Weight 359.00 lb with out shoes Heart Rate 60 /min BP Systolic Sitting 140 mmHg Ra lg cuff BP Diastolic Sitting 80 mmHg Ra lg cuff BP Systolic Standing 144 mmHg Ra lg cuff BP Diastolic Standing 80 mmHg Ra lg cuff Respiratory Rate 16 /min BMI (Body Mass Index) 51.5 kg/m2 Ejection Fraction 55-60% date 10/08/14 ECHO 07/30/2015 1:16pm Height 70 inches 5'10" Weight 359.75 lb with shoes Heart Rate 68 /min BP Systolic Sitting 142 mmHg LA, large BP Diastolic Sitting 82 mmHg LA, large BP Systolic Recheck 132 mmHg la repeat sitting BP Diastolic Recheck 83 mmHg la repeat sitting BMI (Body Mass Index) 51.6 kg/m2 Ejection Fraction 51% NLM 11/01/14 05/26/2015 1:28pm Height 70 inches 5'10" Weight 359.75 lb Heart Rate 62 /min BP Systolic Sitting 152 mmHg LA, large cuff BP Diastolic Sitting 84 mmHg LA, large cuff BMI (Body Mass Index) 51.6 kg/m2 Ejection Fraction 55-60% echo 10/08/14 03/31/2015 1:20pm Height 70 inches 5'10" Weight 362.50 lb w/o shoes Heart Rate 60 /min reg BP Systolic Sitting 176 mmHg Lue, lg cuff BP Diastolic Sitting 96 mmHg Lue, lg cuff BP Systolic Standing 174 mmHg Lue BP Diastolic Standing 94 mmHg Lue Respiratory Rate 18 /min BMI (Body Mass Index) 52.0 kg/m2 Ejection Fraction 55-60% as of 10/08/14 echo 03/12/2015 10:05am Height 70 inches 5'10" Weight 365.00 lb w/o shoes Heart Rate 70 /min BP Systolic Sitting 144 mmHg LA lg cuff BP Diastolic Sitting 84 mmHg LA lg cuff BMI (Body Mass Index) 52.4 kg/m2 Ejection Fraction 51 Nem 11/01/14 11/29/2014 9:08am Height 70 inches 5'10" Weight 367.00 lb no shoes Heart Rate 60 /min BP Systolic Sitting 138 mmHg LA, Lg cuff BP Diastolic Sitting 86 mmHg LA, Lg cuff BP Systolic Standing 132 mmHg LA BP Diastolic Standing 86 mmHg LA Respiratory Rate 16 /min BMI (Body Mass Index) 52.7 kg/m2 Ejection Fraction 55-60% 10/08/2014 09/11/2014 11:20am Height 70 inches 5'10" Weight 359.75 lb [...] kg/m2 Ejection Fraction 50-55% date 03/15/08 07/31/2014 1:44pm Height 70 inches 5'10" Weight 369.12 lb with shoes on Heart Rate 67 /min BP Systolic Sitting 146 mmHg BP Diastolic Sitting 82 mmHg Respiratory Rate 20 /min Body Temperature 97.6 F O2 % BldC Oximetry 98 % BMI (Body Mass Index) 53.0 kg/m2 Neck Circumference in inches 19 Results Test Date Facility Test Result H/L Range Note Rapid Influenza 06/04/2018 [facility] Influenza A NEGATIVE Negative 1 A & B Molecular [address] [place] [address] [phone] Influenza B Molecular NEGATIVE Negative Laboratory test 06/04/2018 [facility] Rapid Influenza SEE RESULT [address] A B Antigen BELOW [place], [place] [id number] [phone] Laboratory test 02/19/2018 [facility] Potassium 3.7 mmol/L N 3.5-5. finding [address] Redraw 0 [place], [place] [id number] [phone] Ast Redraw 31 U/L N 13-39 Rapid Influenza 02/19/2018 [facility] Influenza A NEGATIVE Negative 3 A & B Molecular [address] Molecular [place], [place] [id number] [phone] Influenza B Molecular NEGATIVE Negative Laboratory test 02/19/2018 [facility] Rapid Influenza SEE RESULT [address] [place] [address] [phone] CBC Auto Diff 02/19/2018 [facility] White Blood 7.8 10^3/uL N 3.5-[address] Count .8 [place], [place] [id number] [phone] Red Blood Count 4.89 10^6/uL N 4.00-5.40 Hemoglobin 14.7 g/dL N 14.0-18.0 Hematocrit 43 % N 42-52 Mean Corpuscular Volume 89 fL N 80-94 Mean Corpuscular Hemoglobin 30 pg N 27-31 Mean Corpuscular HGB Conc 34 g/dL N 31-36 Red Cell Distribution Width 14 % N 10.5-15 Platelet Count 211 10^3/uL N 150-450 Mean Platelet Volume 6.6 um3 Low 7.4-10.4 Abs Neutrophils 4.7 10^3/uL N 1.5-7.7 Abs Lymphocytes 2.4 10^3/uL N 1.0-4.8 Abs Monocytes 0.5 10^3/uL N 0-0.8 Abs Eosinophils 0.1 10^3/uL N 0-0.6 Abs Basophils 0.1 10^3/uL N 0-0.2 Abs Nucleated RBC 0 10^3/uL Granulocyte % 59.7 % N 38-83 Lymphocyte % 30.3 % N 25-47 Monocyte % 7.0 % N 0-7 Eosinophil % 1.8 % N 0-6 Basophil % 1.2 % N 0-2 Nucleated Red Blood Cells % 0.1 Laboratory test 02/19/2018 [facility] Lactic Acid 1.7 mmol/L N 0.5-2.0 [address] [place] [address] [phone] Comp Metabolic 02/19/2018 [facility] Sodium 139 mmol/L N 135- 145 Panel [address] [place] [address] [phone] Chloride 106 mmol/L N 101-111 Co2 Carbon Dioxide 23 mmol/L N 22-32 Glucose 149 mg/dL High 70-100 Blood Urea Nitrogen 13 mg/dL N 6-24 Creatinine 1.09 mg/dL N 0.67-1.17 BUN/Creatinine Ratio 11.9 N 8-20 Calcium 9.3 mg/dL N 8.6-10.3 Total Protein 6.7 g/dL N 6.4-8.9 Albumin 4.2 g/dL N 3.2-5.2 Globulin 2.5 g/dL N 2-4 Albumin/Globulin Ratio 1.7 N 1-3 Total Bilirubin 0.50 mg/dL N 0.2-1.0 Alkaline Phosphatase 56 U/L N 34-104 Alt 38 U/L N 7-52 Egfr Non- 69.0 >60 Egfr 83.5 >60 6 Potassium TNP mmol/L 3.5-5.0 7 Anion Gap 10 mmol/L N 2-11 Ast TNP U/L 13-39 8 Laboratory test 02/19/2018 [facility] C Reactive 2.14 mg/L N < 8.[address] [place] [address] [phone] Troponin-I (TnI) 0.00 ng/mL <0.04 TSH (Thyroid Stim Horm) 5.10 mcIU/mL N 0.34-5.60 Comp Metabolic Panel 01/23/2018 [facility] Sodium 140 mmol/L N 135-[address] [place] [address] [phone] Potassium 4.4 mmol/L N 3.5-5.0 Chloride 104 mmol/L N 101-111 Co2 Carbon Dioxide 26 mmol/L N 22-32 Anion Gap 10 mmol/L N 2-11 Glucose 114 mg/dL High 70-100 Blood Urea Nitrogen 11 mg/dL N 6-24 Creatinine 0.94 mg/dL N 0.67-1.17 BUN/Creatinine Ratio 11.7 N 8-20 Calcium 9.3 mg/dL N 8.6-10.3 Total Protein 6.3 g/dL Low 6.4-8.9 Albumin 4.4 g/dL N 3.2-5.2 Globulin 1.9 g/dL Low 2-4 Albumin/Globulin Ratio 2.3 N 1-3 Total Bilirubin 0.50 mg/dL N 0.2-1.0 Alkaline Phosphatase 53 U/L N 34-104 Alt 39 U/L N 7-52 Ast 33 U/L N 13-39 Egfr Non- 81.9 >60 Egfr 99.1 >60 10 Lipid Profile 01/23/2018 [facility] Triglycerides 114 mg/dL 11 (Trig/Chol/HDL) [address] [place] [address] [phone] Cholesterol 130 mg/dL 12 HDL Cholesterol 40.0 mg/dL 13 LDL Cholesterol 67 mg/dL 14 Lipid Panel - 01/23/2018 [facility] Creatine 173 U/L N 10-223 [address] Kinase(CK) [place] [address] [phone] Laboratory test 01/01/2018 [facility] C Difficile PCR SEE RESULT [address] [place] [place], [place] [id number] [phone] Laboratory test 11/16/2017 [facility] C Difficile PCR SEE RESULT [address] [place] [address] [phone] Laboratory test 10/27/2017 [facility] C Difficile PCR SEE RESULT [address] [place] [address] [phone] CBC Auto Diff 10/27/2017 [facility] White Blood 5.7 10^3/uL N 3.5-10.[address] [place] [address] [phone] Red Blood Count 4.73 10^6/uL N 4.00-5.40 Hemoglobin 14.3 g/dL N 14.0-18.0 Hematocrit 42 % N 42-52 Mean Corpuscular Volume 89 fL N 80-94 Mean Corpuscular Hemoglobin 30 pg N 27-31 Mean Corpuscular HGB Conc 34 g/dL N 31-36 Red Cell Distribution Width 14 % N 10.5-15 Platelet Count 182 10^3/uL N 150-450 Mean Platelet Volume 6.6 um3 Low 7.4-10.4 Abs Neutrophils 3.4 10^3/uL N 1.5-7.7 Abs Lymphocytes 1.5 10^3/uL N 1.0-4.8 Abs Monocytes 0.6 10^3/uL N 0-0.8 Abs Eosinophils 0.1 10^3/uL N 0-0.6 Abs Basophils 0 10^3/uL N 0-0.2 Abs Nucleated RBC 0 10^3/uL Granulocyte % 60.3 % N 38-83 Lymphocyte % 26.8 % N 25-47 Monocyte % 10.4 % High 0-7 Eosinophil % 1.8 % N 0-6 Basophil % 0.7 % N 0-2 Nucleated Red Blood Cells % 0 Laboratory test 10/27/2017 [facility] Lactic Acid 1.5 mmol/L N 0.5-2.0 19 finding [address] [place] [address] [phone] Comp Metabolic 10/27/2017 [facility] Sodium 137 mmol/L N 135- 145 Panel [address] [place] [address] [phone] Potassium 4.3 mmol/L N 3.5-5.0 Chloride 105 mmol/L N 101-111 Co2 Carbon Dioxide 25 mmol/L N 22-32 Anion Gap 7 mmol/L N 2-11 Glucose 124 mg/dL High 70-100 Blood Urea Nitrogen 14 mg/dL N 6-24 Creatinine 0.97 mg/dL N 0.67-1.17 BUN/Creatinine Ratio 14.4 N 8-20 Calcium 9.2 mg/dL N 8.6-10.3 Total Protein 6.6 g/dL N 6.4-8.9 Albumin 4.0 g/dL N 3.2-5.2 Globulin 2.6 g/dL N 2-4 Albumin/Globulin Ratio 1.5 N 1-3 Total Bilirubin 0.50 mg/dL N 0.2-1.0 Alkaline Phosphatase 51 U/L N 34-104 Alt 39 U/L N 7-52 Ast 32 U/L N 13-39 Egfr Non- 79.2 >60 Egfr 95.9 >60 20 Laboratory test 10/27/2017 [facility] Magnesium 2.0 mg/dL N 1.9-2.[address] [place] [address] [phone] Lipase 43 U/L N 11.0-82.0 C Reactive Protein 2.19 mg/L N <8.01 Laboratory test 10/10/2017 [facility] C Difficile PCR SEE RESULT [address] [place] [address] [phone] CBC Auto Diff 08/03/2017 [facility] White Blood 7.4 10^3/uL N 3.5-[address] Count .8 [place] [address] [phone] Red Blood Count 5.00 10^6/uL N 4.0-5.4 Hemoglobin 14.9 g/dL N 14.0-18.0 Hematocrit 44 % N 42-52 Mean Corpuscular Volume 89 fL N 80-94 Mean Corpuscular Hemoglobin 30 pg N 27-31 Mean Corpuscular HGB Conc 34 g/dL N 31-36 Red Cell Distribution Width 14 % N 10.5-15 Platelet Count 210 10^3/uL N 150-450 Mean Platelet Volume 6.3 um3 Low 7.4-10.4 Abs Neutrophils 4.2 10^3/uL N 1.5-7.7 Abs Lymphocytes 2.3 10^3/uL N 1.0-4.8 Abs Monocytes 0.8 10^3/uL N 0-0.8 Abs Eosinophils 0.2 10^3/uL N 0-0.6 Abs Basophils 0.1 10^3/uL N 0-0.2 Abs Nucleated RBC 0 10^3/uL Granulocyte % 56.2 % N 38-83 Lymphocyte % 30.8 % N 25-47 Monocyte % 10.1 % High 0-7 Eosinophil % 2.2 % N 0-6 Basophil % 0.7 % N 0-2 Nucleated Red Blood Cells % 0 Laboratory test 08/03/2017 [facility] C Difficile PCR SEE RESULT [address] [place], [place] [phone] Comp Metabolic 08/02/2017 [facility] Sodium 139 mmol/L N 139- 14 [address] 5 [place] [address] [phone] Potassium 4.5 mmol/L N 3.5-5.0 Chloride 104 mmol/L N 101-111 Co2 Carbon Dioxide 27 mmol/L N 22-32 Anion Gap 8 mmol/L N 2-11 Glucose 107 mg/dL High 70-100 Blood Urea Nitrogen 11 mg/dL N 6-24 Creatinine 0.91 mg/dL N 0.67-1.17 BUN/Creatinine Ratio 12.1 N 8-20 Calcium 9.5 mg/dL N 8.6-10.3 Total Protein 6.7 g/dL N 6.4-8.9 Albumin 4.4 g/dL N 3.2-5.2 Globulin 2.3 g/dL N 2-4 Albumin/Globulin Ratio 1.9 N 1-3 Total Bilirubin 0.70 mg/dL N 0.2-1.0 Alkaline Phosphatase 43 U/L N 34-104 Alt 38 U/L N 7-52 Ast 33 U/L N 13-39 Egfr Non- 85.3 >60 Egfr 109.7 >60 24 Lipid Profile 08/02/2017 [facility] Triglycerides 149 mg/dL 25 (Trig/Chol/HDL) [address] [place] [address] [phone] Cholesterol 175 mg/dL 26 HDL Cholesterol 38.2 mg/dL 27 LDL Cholesterol 107 mg/dL 28 Laboratory test 08/02/2017 [facility] Creatine 171 U/L N 10- 223 [address] Kinase(CK) [place] [address] [phone] TSH (Thyroid Stim Horm) 5.15 mcIU/mL N 0.34-5.60 30 Laboratory test 06/21/2017 [facility] C Difficile PCR SEE RESULT 31, [address] [place] [address] [phone] Urinalysis 06/21/2017 [facility] Urine Color Yellow Profile [address] [place] [address] [phone] Urine Appearance Clear Urine Specific [place] 1.020 N 1.010-1.030 Urine pH 5.0 N 5-9 Urine Urobilinogen Negative Negative Urine Ketones Negative Negative Urine Protein Negative Negative Urine Leukocytes Negative Negative Urine Blood Negative Negative Urine Nitrite Negative Negative Urine Bilirubin Negative Negative Urine Glucose Negative Negative CBC Auto Diff 06/21/2017 [facility] White Blood 6.1 10^3/uL N 3.5-10.[address] [place] [address] [phone] Red Blood Count 4.97 10^6/uL N 4.0-5.4 Hemoglobin 14.8 g/dL N 14.0-18.0 Hematocrit 44 % N 42-52 Mean Corpuscular Volume 89 fL N 80-94 Mean Corpuscular Hemoglobin 30 pg N 27-31 Mean Corpuscular HGB Conc 34 g/dL N 31-36 Red Cell Distribution Width 14 % N 10.5-15 Platelet Count 200 10^3/uL N 150-450 Mean Platelet Volume 6 um3 Low 7.4-10.4 Abs Neutrophils 3.9 10^3/uL N 1.5-7.7 Abs Lymphocytes 1.5 10^3/uL N 1.0-4.8 Abs Monocytes 0.5 10^3/uL N 0-0.8 Abs Eosinophils 0.1 10^3/uL N 0-0.6 Abs Basophils 0 10^3/uL N 0-0.2 Abs Nucleated RBC 0 10^3/uL Granulocyte % 63.7 % N 38-83 Lymphocyte % 25.3 % N 25-47 Monocyte % 8.0 % High 0-7 Eosinophil % 2.3 % N 0-6 Basophil % 0.7 % N 0-2 Nucleated Red Blood Cells % 0.1 Laboratory test 06/21/2017 [facility] Lactic Acid 1.6 mmol/L N 0.5-2.0 [address] [place] [address] [phone] Comp Metabolic 06/21/2017 [facility] Sodium 137 mmol/L N 133- [address] [place] [address] [phone] Potassium 4.1 mmol/L N 3.5-5.0 Chloride 103 mmol/L N 101-111 Co2 Carbon Dioxide 27 mmol/L N 22-32 Anion Gap 7 mmol/L N 2-11 Glucose 120 mg/dL High 70-100 Blood Urea Nitrogen 10 mg/dL N 6-24 Creatinine 1.00 mg/dL N 0.67-1.17 BUN/Creatinine Ratio 10.0 N 8-20 Calcium 9.7 mg/dL N 8.6-10.3 Total Protein 7.2 g/dL N 6.4-8.9 Albumin 4.4 g/dL N 3.2-5.2 Globulin 2.8 g/dL N 2-4 Albumin/Globulin Ratio 1.6 N 1-3 Total Bilirubin 0.70 mg/dL N 0.2-1.0 Alkaline Phosphatase 45 U/L N 34-104 Alt 37 U/L N 7-52 Ast 33 U/L N 13-39 Egfr Non- 76.5 >60 Egfr 98.4 >60 34 Laboratory test finding 06/21/2017 [facility] Lipase 36 U/L N 11.0-82.[address] [place] [address] [phone] C Reactive Protein 1.96 mg/L N < 5.00 35 Rapid Influenza 06/13/2017 [facility] Influenza A NEGATIVE Negative 36 A & B Molecular [address] [place] [address] [phone] Influenza B Molecular NEGATIVE Negative CBC Auto Diff 03/19/2017 [facility] White Blood 8.0 10^3/uL N 3.5-10.[address] [place] [address] [phone] Red Blood Count 4.74 10^6/uL N 4.0-5.4 Hemoglobin 14.0 g/dL N 14.0-18.0 Hematocrit 42 % N 42-52 Mean Corpuscular Volume 88 fL N 80-94 Mean Corpuscular Hemoglobin 30 pg N 27-31 Mean Corpuscular HGB Conc 33 g/dL N 31-36 Red Cell Distribution Width 14 % N 10.5-15 Platelet Count 184 10^3/uL N 150-450 Mean Platelet Volume 7 um3 Low 7.4-10.4 Abs Neutrophils 4.7 10^3/uL N 1.5-7.7 Abs Lymphocytes 2.3 10^3/uL N 1.0-4.8 Abs Monocytes 0.8 10^3/uL N 0-0.8 Abs Eosinophils 0.1 10^3/uL N 0-0.6 Abs Basophils 0.1 10^3/uL N 0-0.2 Abs Nucleated RBC 0.01 10^3/uL Granulocyte % 58.9 % N 38-83 Lymphocyte % 29.1 % N 25-47 Monocyte % 9.5 % High 1-9 Eosinophil % 1.7 % N 0-6 Basophil % 0.8 % N 0-2 Nucleated Red Blood Cells % 0.1 Comp Metabolic Panel 03/19/2017 [facility] Sodium 137 mmol/L N 133-145 [address] [place] [address] [phone] Potassium 3.9 mmol/L N 3.5-5.0 Chloride 102 mmol/L N 101-111 Co2 Carbon Dioxide 26 mmol/L N 22-32 Anion Gap 9 mmol/L N 2-11 Glucose 92 mg/dL N 70-100 Blood Urea Nitrogen 13 mg/dL N 6-24 Creatinine 1.03 mg/dL N 0.67-1.17 BUN/Creatinine Ratio 12.6 N 8-20 Calcium 9.5 mg/dL N 8.6-10.3 Total Protein 6.8 g/dL N 6.4-8.9 Albumin 4.1 g/dL N 3.2-5.2 Globulin 2.7 g/dL N 2-4 Albumin/Globulin Ratio 1.5 N 1-3 Total Bilirubin 0.70 mg/dL N 0.2-1.0 Alkaline Phosphatase 52 U/L N 34-104 Alt 37 U/L N 7-52 Ast 28 U/L N 13-39 Egfr Non- 73.9 >60 Egfr 95.1 >60 37 Urinalysis Profile 02/07/2017 [facility] Urine Color Yellow N [address] [place] [address] [phone] Urine Appearance Clear N Urine Specific [place] 1.018 N 1.010-1.030 Urine pH 7.0 N 5-9 Urine Urobilinogen Negative N Negative Urine Ketones Negative N Negative Urine Protein Negative N Negative Urine Leukocytes Negative N Negative Urine Blood Negative N Negative Urine Nitrite Negative N Negative Urine Bilirubin Negative N Negative Urine Glucose Negative N Negative CBC Auto Diff 02/06/2017 [facility] White Blood 9.2 10^3/uL N 3.5-10.[address] [place] [address] [phone] Red Blood Count 5.11 10^6/uL N 4.0-5.4 Hemoglobin 15.4 g/dL N 14.0-18.0 Hematocrit 45 % N 42-52 Mean Corpuscular Volume 89 fL N 80-94 Mean Corpuscular Hemoglobin 30 pg N 27-31 Mean Corpuscular HGB Conc 34 g/dL N 31-36 Red Cell Distribution Width 14 % N 10.5-15 Platelet Count 209 10^3/uL N 150-450 Mean Platelet Volume 6 um3 Low 7.4-10.4 Abs Neutrophils 6.7 10^3/uL N 1.5-7.7 Abs Lymphocytes 1.8 10^3/uL N 1.0-4.8 Abs Monocytes 0.6 10^3/uL N 0-0.8 Abs Eosinophils 0.1 10^3/uL N 0-0.6 Abs Basophils 0 10^3/uL N 0-0.2 Abs Nucleated RBC 0 10^3/uL N Granulocyte % 72.6 % N 38-83 Lymphocyte % 19.3 % Low 25-47 Monocyte % 6.5 % N 1-9 Eosinophil % 1.1 % N 0-6 Basophil % 0.5 % N 0-2 Nucleated Red Blood Cells % 0 N Laboratory test 02/06/2017 [facility] Lactic Acid 3.0 mmol/L High 0.5-2.0 [address] [place] [address] [phone] B-Type Natriuretic Peptide BNP 22 pg/mL N 39 Comp Metabolic Panel 02/06/2017 [facility] Sodium 139 mmol/L N 133-[address] [place] [address] [phone] Potassium 4.4 mmol/L N 3.5-5.0 Chloride 104 mmol/L N 101-111 Co2 Carbon Dioxide 27 mmol/L N 22-32 Anion Gap 8 mmol/L N 2-11 Glucose 105 mg/dL High 70-100 Blood Urea Nitrogen 13 mg/dL N 6-24 Creatinine 1.05 mg/dL N 0.67-1.17 BUN/Creatinine Ratio 12.4 N 8-20 Calcium 9.6 mg/dL N 8.6-10.3 Total Protein 7.2 g/dL N 6.4-8.9 Albumin 4.4 g/dL N 3.2-5.2 Globulin 2.8 g/dL N 2-4 Albumin/Globulin Ratio 1.6 N 1-3 Total Bilirubin 0.80 mg/dL N 0.2-1.0 Alkaline Phosphatase 44 U/L N 34-104 Alt 39 U/L N 7-52 Ast 35 U/L N 13-39 Egfr Non- 72.3 N >60 Egfr 93.0 N >60 40 Laboratory test 02/06/2017 [facility] Magnesium 1.9 mg/dL N 1.9-2.[address] [place] [address] [phone] Lipase 32 U/L N 11.0-82.0 Creatine Kinase(CK) 113 U/L N 10-223 C Reactive Protein 2.26 mg/L N < 5.00 41 Troponin-I (TnI) 0.00 ng/mL N <0.04 CKMB 02/06/2017 [facility] CKMB ng/mL 2.3 ng/mL N 0.6-6.[address] [place] [address] [phone] Laboratory test 02/06/2017 [facility] TSH (Thyroid 1.70 mcIU/mL N 0.34-5.[address] Stim Horm) [place] [address] [phone] Inr/Protime 02/06/2017 [facility] Inr 0.94 N 0.89-1.[address] [place] [address] [phone] Laboratory test 02/06/2017 [facility] Partial 33.6 seconds N 26.0-36.[address] [place] [address] PTT [phone] CBC Auto Diff 10/12/2016 [facility] White Blood 6.7 10^3/uL N 3.5-10.[address] [place] [address] [phone] Red Blood Count 5.11 10^6/uL N 4.0-5.4 Hemoglobin 15.0 g/dL N 14.0-18.0 Hematocrit 45 % N 42-52 Mean Corpuscular Volume 89 fL N 80-94 Mean Corpuscular Hemoglobin 29 pg N 27-31 Mean Corpuscular HGB Conc 33 g/dL N 31-36 Red Cell Distribution Width 14 % N 10.5-15 Platelet Count 196 10^3/uL N 150-450 Mean Platelet Volume 7 um3 Low 7.4-10.4 Abs Neutrophils 4.0 10^3/uL N 1.5-7.7 Abs Lymphocytes 1.9 10^3/uL N 1.0-4.8 Abs Monocytes 0.6 10^3/uL N 0-0.8 Abs Eosinophils 0.2 10^3/uL N 0-0.6 Abs Basophils 0 10^3/uL N 0-0.2 Abs Nucleated RBC 0 10^3/uL N Granulocyte % 59.2 % N 38-83 Lymphocyte % 27.5 % N 25-47 Monocyte % 9.4 % High 1-9 Eosinophil % 3.4 % N 0-6 Basophil % 0.5 % N 0-2 Nucleated Red Blood Cells % 0 N Lipid Panel - 10/12/2016 [facility] Creatine 170 U/L N 10-[address] Kinase(CK) [place] [address] [phone] Comp Metabolic 10/12/2016 [facility] Sodium 137 N 133-[address] mmol/[place] [address] [phone] Potassium 4.5 mmol/L N 3.5-5.0 Chloride 101 mmol/L N 101-111 Co2 Carbon Dioxide 28 mmol/L N 22-32 Anion Gap 8 mmol/L N 2-11 Glucose 107 mg/dL High 70-100 Blood Urea Nitrogen 13 mg/dL N 6-24 Creatinine 0.99 mg/dL N 0.67-1.17 BUN/Creatinine Ratio 13.1 N 8-20 Calcium 9.6 mg/dL N 8.6-10.3 Total Protein 7.0 g/dL N 6.4-8.9 Albumin 4.5 g/dL N 3.2-5.2 Globulin 2.5 g/dL N 2-4 Albumin/Globulin Ratio 1.8 N 1-3 Total Bilirubin 0.80 mg/dL N 0.2-1.0 Alkaline Phosphatase 47 U/L N 34-104 Alt 38 U/L N 7-52 Ast 32 U/L N 13-39 Egfr Non- 77.6 N >60 Egfr 99.9 N >60 42 Lipid Profile 10/12/2016 [facility] Triglycerides 149 mg/dL N 43 (Trig/Chol/HDL) [address] [place] [address] [phone] Cholesterol 154 mg/dL N 44 HDL Cholesterol 38.9 mg/dL N 45 LDL Cholesterol 85 mg/dL N 46 Laboratory test 10/12/2016 [facility] TSH (Thyroid 4.00 mcIU/mL N 0.34-5.[address] Stim Horm) [place] [address] [phone] Magnesium 2.0 mg/dL N 1.9-2.7 Laboratory test 08/04/2016 [facility] Magnesium 1.9 mg/dL N 1.9-2.7 finding [address] [place] [address] [phone] Comp Metabolic 08/04/2016 [facility] Sodium 135 mmol/L N 133- 145 Panel [address] [place] [address] [phone] Potassium 4.4 mmol/L N 3.5-5.0 Chloride 103 mmol/L N 101-111 Co2 Carbon Dioxide 25 mmol/L N 22-32 Anion Gap 7 mmol/L N 2-11 Glucose 109 mg/dL High 70-100 Blood Urea Nitrogen 13 mg/dL N 6-24 Creatinine 1.04 mg/dL N 0.67-1.17 BUN/Creatinine Ratio 12.5 N 8-20 Calcium 9.5 mg/dL N 8.6-10.3 Total Protein 6.7 g/dL N 6.4-8.9 Albumin 4.3 g/dL N 3.2-5.2 Globulin 2.4 g/dL N 2-4 Albumin/Globulin Ratio 1.8 N 1-3 Total Bilirubin 0.60 mg/dL N 0.2-1.0 Alkaline Phosphatase 44 U/L N 34-104 Alt 34 U/L N 7-52 Ast 28 U/L N 13-39 Egfr Non- 73.4 N >60 Egfr 94.3 N >60 47 Lipid Profile 08/04/2016 [facility] Triglycerides 156 mg/dL N 48 (Trig/Chol/HDL) [address] [facility] [place] [address] [phone] Cholesterol 157 mg/dL N 49 HDL Cholesterol 35.1 mg/dL N 50 LDL Cholesterol 91 mg/dL N 51 Laboratory 08/04/2016 [facility] Creatine 120 U/L N 10-223 test finding [address] Kinase(CK) [place] [address] [phone] Laboratory 08/04/2016 [facility] Hepatitis B Nonreactive N Nonreactive test finding [address] [place] [address] [phone] Hepatitis B Core AB Igm MML Negative N Negative 52 Hepatitis B Dna Quantitative Detected IU/mL N Undetected 53 Laboratory test 07/21/2016 [facility] C Difficile PCR SEE RESULT [address] [place] [address] [phone] Stool Culture SEE RESULT BELOW 55 CBC Auto Diff 07/21/2016 [facility] White Blood 7.3 10^3/uL N 3.5-10.[address] [place] [address] [phone] Red Blood Count 5.13 10^6/uL N 4.0-5.4 Hemoglobin 14.8 g/dL N 14.0-18.0 Hematocrit 45 % N 42-52 Mean Corpuscular Volume 88 fL N 80-94 Mean Corpuscular Hemoglobin 29 pg N 27-31 Mean Corpuscular HGB Conc 33 g/dL N 31-36 Red Cell Distribution Width 14 % N 10.5-15 Platelet Count 193 10^3/uL N 150-450 Mean Platelet Volume 7 um3 Low 7.4-10.4 Abs Neutrophils 4.8 10^3/uL N 1.5-7.7 Abs Lymphocytes 1.8 10^3/uL N 1.0-4.8 Abs Monocytes 0.6 10^3/uL N 0-0.8 Abs Eosinophils 0.1 10^3/uL N 0-0.6 Abs Basophils 0.1 10^3/uL N 0-0.2 Abs Nucleated RBC 0 10^3/uL N Granulocyte % 65.2 % N 38-83 Lymphocyte % 24.9 % Low 25-47 Monocyte % 7.7 % N 1-9 Eosinophil % 1.1 % N 0-6 Basophil % 1.1 % N 0-2 Nucleated Red Blood Cells % 0 N Comp Metabolic Panel 07/21/2016 [facility] Sodium 136 mmol/L N 133-145 [address] [place] [address] [phone] Potassium 4.4 mmol/L N 3.5-5.0 Chloride 103 mmol/L N 101-111 Co2 Carbon Dioxide 25 mmol/L N 22-32 Anion Gap 8 mmol/L N 2-11 Glucose 114 mg/dL High 70-100 Blood Urea Nitrogen 9 mg/dL N 6-24 Creatinine 1.00 mg/dL N 0.67-1.17 BUN/Creatinine Ratio 9.0 N 8-20 Calcium 9.6 mg/dL N 8.6-10.3 Total Protein 6.8 g/dL N 6.4-8.9 Albumin 4.3 g/dL N 3.2-5.2 Globulin 2.5 g/dL N 2-4 Albumin/Globulin Ratio 1.7 N 1-3 Total Bilirubin 0.70 mg/dL N 0.2-1.0 Alkaline Phosphatase 45 U/L N 34-104 Alt 39 U/L N 7-52 Ast 31 U/L N 13-39 Egfr Non- 76.7 N >60 Egfr 98.7 N >60 56 Laboratory test finding 07/21/2016 [facility] Lipase 30 U/L N 11.0-82.0 [address] [place] [address] [phone] C Reactive Protein 1.79 mg/L N < 5.00 57 Lactic Acid 1.8 mmol/L N 0.5-2.0 58 Urinalysis Profile 07/21/2016 [facility] Urine Color Yellow N [address] [place] [address] [phone] Urine Appearance Clear N Urine Specific [place] 1.011 N 1.010-1.030 Urine pH 6.0 N 5-9 Urine Urobilinogen Negative N Negative Urine Ketones Negative N Negative Urine Protein Negative N Negative Urine Leukocytes Negative N Negative Urine Blood Negative N Negative Urine Nitrite Negative N Negative Urine Bilirubin Negative N Negative Urine Glucose Negative N Negative CBC Auto Diff 06/26/2016 [facility] White Blood 9.7 10^3/uL N 3.5-10.[address] [place] [address] [phone] Red Blood Count 5.08 10^6/uL N 4.0-5.4 Hemoglobin 14.9 g/dL N 14.0-18.0 Hematocrit 44 % N 42-52 Mean Corpuscular Volume 87 fL N 80-94 Mean Corpuscular Hemoglobin 29 pg N 27-31 Mean Corpuscular HGB Conc 34 g/dL N 31-36 Red Cell Distribution Width 14 % N 10.5-15 Platelet Count 206 10^3/uL N 150-450 Mean Platelet Volume 7 um3 Low 7.4-10.4 Abs Neutrophils 5.1 10^3/uL N 1.5-7.7 Abs Lymphocytes 3.6 10^3/uL N 1.0-4.8 Abs Monocytes 0.8 10^3/uL N 0-0.8 Abs Eosinophils 0.1 10^3/uL N 0-0.6 Abs Basophils 0.1 10^3/uL N 0-0.2 Abs Nucleated RBC 0.01 10^3/uL N Granulocyte % 52.5 % N 38-83 Lymphocyte % 37.3 % N 25-47 Monocyte % 8.3 % N 1-9 Eosinophil % 1.4 % N 0-6 Basophil % 0.5 % N 0-2 Nucleated Red Blood Cells % 0.1 N Comp Metabolic Panel 06/26/2016 [facility] Sodium 137 mmol/L N 133-[address] [place] [address] [phone] Potassium 3.4 mmol/L Low 3.5-5.0 Chloride 102 mmol/L N 101-111 Co2 Carbon Dioxide 25 mmol/L N 22-32 Anion Gap 10 mmol/L N 2-11 Glucose 108 mg/dL High 70-100 Blood Urea Nitrogen 10 mg/dL N 6-24 Creatinine 1.05 mg/dL N 0.67-1.17 BUN/Creatinine Ratio 9.5 N 8-20 Calcium 9.6 mg/dL N 8.6-10.3 Total Protein 7.0 g/dL N 6.4-8.9 Albumin 4.3 g/dL N 3.2-5.2 Globulin 2.7 g/dL N 2-4 Albumin/Globulin Ratio 1.6 N 1-3 Total Bilirubin 0.60 mg/dL N 0.2-1.0 Alkaline Phosphatase 46 U/L N 34-104 Alt 32 U/L N 7-52 Ast 25 U/L N 13-39 Egfr Non- 72.5 N >60 Egfr 93.3 N >60 59 Laboratory test 06/26/2016 [facility] Magnesium 1.8 mg/dL Low 1.9-2.[address] [place] [address] [phone] Troponin-I (TnI) 0.00 ng/mL N <0.04 60 Laboratory test 06/25/2016 [facility] Vitamin D 30.5 ng/mL N 30-50 finding [address] [employer] Total 25(Oh) [place], [place] [id number] [phone] Vitamin B12 And 06/25/2016 [facility] Vitamin B12 214 pg/mL N 180-914 61 Folate Serum [address] [employer] [place], [place] [id number] [phone] Folic Acid (Folate) 16.37 ng/mL N >3.99 Laboratory 06/25/2016 [facility] Hepatitis B Positive N Negative 62 test finding [address] [place] [address] Total [phone] Hepatitis B 06/25/2016 [facility] Hepatitis B Nonreactive N Nonreactive Janel AB Titer [address] [employer] [address] [place], [place] [phone] [phone] Hep B Surf AB Level 5.60 mIU/mL N <12 63 Laboratory 06/25/2016 [facility] Hepatitis B Nonreactive N Nonreactive test finding [address] [employer] [place] [address] [phone] CBC Auto Diff 06/23/2016 [facility] White Blood 8.4 10^3/uL N 3.5-10.[address] Count [place], [place] [phone] Red Blood Count 5.26 10^6/uL N 4.0-5.4 Hemoglobin 15.2 g/dL N 14.0-18.0 Hematocrit 46 % N 42-52 Mean Corpuscular Volume 88 fL N 80-94 Mean Corpuscular Hemoglobin 29 pg N 27-31 Mean Corpuscular HGB Conc 33 g/dL N 31-36 Red Cell Distribution Width 14 % N 10.5-15 Platelet Count 211 10^3/uL N 150-450 Mean Platelet Volume 7 um3 Low 7.4-10.4 Abs Neutrophils 5.7 10^3/uL N 1.5-7.7 Abs Lymphocytes 1.8 10^3/uL N 1.0-4.8 Abs Monocytes 0.7 10^3/uL N 0-0.8 Abs Eosinophils 0.1 10^3/uL N 0-0.6 Abs Basophils 0.1 10^3/uL N 0-0.2 Abs Nucleated RBC 0.01 10^3/uL N Granulocyte % 68.0 % N 38-83 Lymphocyte % 21.9 % Low 25-47 Monocyte % 8.6 % N 1-9 Eosinophil % 0.8 % N 0-6 Basophil % 0.7 % N 0-2 Nucleated Red Blood Cells % 0.1 N Comp Metabolic Panel 06/23/2016 [facility] Sodium 136 mmol/L N 133-[address] [place] [address] [phone] Potassium 4.1 mmol/L N 3.5-5.0 Chloride 103 mmol/L N 101-111 Co2 Carbon Dioxide 25 mmol/L N 22-32 Anion Gap 8 mmol/L N 2-11 Glucose 100 mg/dL N 70-100 Blood Urea Nitrogen 12 mg/dL N 6-24 Creatinine 1.05 mg/dL N 0.67-1.17 BUN/Creatinine Ratio 11.4 N 8-20 Calcium 9.6 mg/dL N 8.6-10.3 Total Protein 7.0 g/dL N 6.4-8.9 Albumin 4.3 g/dL N 3.2-5.2 Globulin 2.7 g/dL N 2-4 Albumin/Globulin Ratio 1.6 N 1-3 Total Bilirubin 0.70 mg/dL N 0.2-1.0 Alkaline Phosphatase 45 U/L N 34-104 Alt 36 U/L N 7-52 Ast 30 U/L N 13-39 Egfr Non- 72.5 N >60 Egfr 93.3 N >60 64 Laboratory test 06/23/2016 [facility] Lipase 30 U/L N 11.0- 82.[address] [place] [address] [phone] CBC Auto Diff 04/05/2016 [facility] White Blood 5.6 N 3.5- 10.[address] Count 10^3/[place] [address] [phone] Red Blood Count 5.09 10^6/uL N 4.0-5.4 Hemoglobin 14.7 g/dL N 14.0-18.0 Hematocrit 45 % N 42-52 Mean Corpuscular Volume 88 fL N 80-94 Mean Corpuscular Hemoglobin 29 pg N 27-31 Mean Corpuscular HGB Conc 33 g/dL N 31-36 Red Cell Distribution Width 14 % N 10.5-15 Platelet Count 199 10^3/uL N 150-450 Mean Platelet Volume 7 um3 Low 7.4-10.4 Abs Neutrophils 3.1 10^3/uL N 1.5-7.7 Abs Lymphocytes 1.6 10^3/uL N 1.0-4.8 Abs Monocytes 0.7 10^3/uL N 0-0.8 Abs Eosinophils 0.1 10^3/uL N 0-0.6 Abs Basophils 0 10^3/uL N 0-0.2 Abs Nucleated RBC 0 10^3/uL N Granulocyte % 56.1 % N 38-83 Lymphocyte % 29.3 % N 25-47 Monocyte % 11.8 % High 1-9 Eosinophil % 2.0 % N 0-6 Basophil % 0.8 % N 0-2 Nucleated Red Blood Cells % 0.1 N Lipid Panel - 04/05/2016 [facility] Creatine 115 U/L N 10-223 [address] Kinase(CK) [place] [address] [phone] Laboratory test 04/05/2016 [facility] Magnesium 1.9 N 1.9-2.7 [address] mg/[place] [address] [phone] Lipid Profile 04/05/2016 [facility] Triglycerides 189 N 67 (Trig/Chol/HDL) [address] mg/[place] [address] [phone] Cholesterol 187 mg/dL N 68 HDL Cholesterol 35.2 mg/dL N 69 LDL Cholesterol 114 mg/dL N 70 Comp Metabolic Panel 04/05/2016 [facility] Sodium 136 mmol/L N 133-[address] [place] [address] [phone] Potassium 4.7 mmol/L N 3.5-5.0 Chloride 102 mmol/L N 101-111 Co2 Carbon Dioxide 29 mmol/L N 22-32 Anion Gap 5 mmol/L N 2-11 Glucose 115 mg/dL High 70-100 Blood Urea Nitrogen 10 mg/dL N 6-24 Creatinine 1.10 mg/dL N 0.67-1.17 BUN/Creatinine Ratio 9.1 N 8-20 Calcium 9.4 mg/dL N 8.6-10.3 Total Protein 6.6 g/dL N 6.4-8.9 Albumin 4.1 g/dL N 3.2-5.2 Globulin 2.5 g/dL N 2-4 Albumin/Globulin Ratio 1.6 N 1-3 Total Bilirubin 0.70 mg/dL N 0.2-1.0 Alkaline Phosphatase 44 U/L N 34-104 Alt 31 U/L N 7-52 Ast 26 U/L N 13-39 Egfr Non- 68.8 N >60 Egfr 88.4 N >60 71 Laboratory test 04/05/2016 [facility] TSH (Thyroid 3.97 mcIU/mL N 0.34-5.60 [address] Stim Horm) [place] [address] [phone] Cortisol 9.49 ?g/dL N 73 PSA Screening 0.329 ng/mL N 0-4.000 74 Lipid Panel - 11/14/2015 [facility] Creatine 200 U/L N 10-223 75, [address] Kinase(CK) [place] [address] [phone] Comp Metabolic 11/14/2015 [facility] Sodium 138 N 133-[address] mmol/[place] [address] [phone] Potassium 4.5 mmol/L N 3.5-5.0 Chloride 104 mmol/L N 101-111 Co2 Carbon Dioxide 26 mmol/L N 22-32 Anion Gap 8 mmol/L N 2-11 Glucose 107 mg/dL High 70-100 Blood Urea Nitrogen 13 mg/dL N 6-24 Creatinine 1.00 mg/dL N 0.67-1.17 BUN/Creatinine Ratio 13.0 N 8-20 Calcium 9.2 mg/dL N 8.6-10.3 Total Protein 6.7 g/dL N 6.4-8.9 Albumin 4.2 g/dL N 3.2-5.2 Globulin 2.5 g/dL N 2-4 Albumin/Globulin Ratio 1.7 N 1-3 Total Bilirubin 0.60 mg/dL N 0.2-1.0 Alkaline Phosphatase 46 U/L N 34-104 Alt 37 U/L N 7-52 Ast 32 U/L N 13-39 Egfr Non- 77.0 N >60 Egfr 99.1 N >60 77 Lipid Profile 11/14/2015 [facility] Triglycerides 100 mg/dL N 78 (Trig/Chol/HDL) [address] [place] [address] [phone] Cholesterol 149 mg/dL N 79 HDL Cholesterol 38.8 mg/dL N 80 LDL Cholesterol 90 mg/dL N 81 Lipid Profile 09/26/2015 [facility] Triglycerides 109 mg/dL N 82 (Trig/Chol/HDL) [address] [place] [address] [phone] Cholesterol 138 mg/dL N 83 HDL Cholesterol 38.8 mg/dL N 84 LDL Cholesterol 77 mg/dL N 85 Comp Metabolic Panel 09/26/2015 [facility] Sodium 137 mmol/L N 133-145 [address] [place] [address] [phone] Potassium 4.3 mmol/L N 3.5-5.0 Chloride 102 mmol/L N 101-111 Co2 Carbon Dioxide 27 mmol/L N 22-32 Anion Gap 8 mmol/L N 2-11 Glucose 102 mg/dL High 70-100 Blood Urea Nitrogen 14 mg/dL N 6-24 Creatinine 1.04 mg/dL N 0.67-1.17 BUN/Creatinine Ratio 13.5 N 8-20 Calcium 9.2 mg/dL N 8.6-10.3 Total Protein 6.8 g/dL N 6.4-8.9 Albumin 4.4 g/dL N 3.2-5.2 Globulin 2.4 g/dL N 2-4 Albumin/Globulin Ratio 1.8 N 1-3 Total Bilirubin 0.70 mg/dL N 0.2-1.0 Alkaline Phosphatase 43 U/L N 34-104 Alt 36 U/L N 7-52 Ast 34 U/L N 13-39 Egfr Non- 73.6 N >60 Egfr 94.7 N >60 86 Lipid Panel - 09/26/2015 [facility] Creatine 257 U/L High 10- [address] Kinase(CK) [place] [address] [phone] Lipid Panel - 08/21/2015 [facility] Creatine 149 U/L N 10-223 [address] Kinase(CK) [place] [address] [phone] Comp Metabolic 08/21/2015 [facility] Sodium 138 N 133-[address] mmol/[place] [address] [phone] Potassium 4.5 mmol/L N 3.5-5.0 Chloride 102 mmol/L N 101-111 Co2 Carbon Dioxide 30 mmol/L N 22-32 Anion Gap 6 mmol/L N 2-11 Glucose 104 mg/dL High 70-100 Blood Urea Nitrogen 13 mg/dL N 6-24 Creatinine 1.06 mg/dL N 0.67-1.17 BUN/Creatinine Ratio 12.3 N 8-20 Calcium 9.4 mg/dL N 8.6-10.3 Total Protein 6.5 g/dL N 6.4-8.9 Albumin 4.4 g/dL N 3.2-5.2 Globulin 2.1 g/dL N 2-4 Albumin/Globulin Ratio 2.1 N 1-3 Total Bilirubin 0.60 mg/dL N 0.2-1.0 Alkaline Phosphatase 50 U/L N 34-104 Alt 33 U/L N 7-52 Ast 28 U/L N 13-39 Egfr Non- 72.0 N >60 Egfr 92.6 N >60 88 Laboratory test 08/21/2015 [facility] Magnesium 2.0 mg/dL N 1.9-2.7 [address] [place] [address] [phone] CBC Auto Diff 08/21/2015 [facility] White Blood 7.0 N 3.5- 10.[address] Count 10^3/[place] [address] [phone] Red Blood Count 4.93 10^6/uL N 4.0-5.4 Hemoglobin 14.5 g/dL N 14.0-18.0 Hematocrit 43 % N 42-52 Mean Corpuscular Volume 88 fL N 80-94 Mean Corpuscular Hemoglobin 30 pg N 27-31 Mean Corpuscular HGB Conc 34 g/dL N 31-36 Red Cell Distribution Width 14 % N 10.5-15 Platelet Count 217 10^3/uL N 150-450 Mean Platelet Volume 7 um3 Low 7.4-10.4 Abs Neutrophils 4.0 10^3/uL N 1.5-7.7 Abs Lymphocytes 2.2 10^3/uL N 1.0-4.8 Abs Monocytes 0.6 10^3/uL N 0-0.8 Abs Eosinophils 0.1 10^3/uL N 0-0.6 Abs Basophils 0 10^3/uL N 0-0.2 Abs Nucleated RBC 0.01 10^3/uL N Granulocyte % 57.4 % N 38-83 Lymphocyte % 32.0 % N 25-47 Monocyte % 8.0 % N 1-9 Eosinophil % 2.1 % N 0-6 Basophil % 0.5 % N 0-2 Nucleated Red Blood Cells % 0.1 N Lipid Profile 08/21/2015 [facility] Triglycerides 154 mg/dL N 90 (Trig/Chol/HDL) [address] [place] [address] [phone] Cholesterol 198 mg/dL N 91 HDL Cholesterol 36.9 mg/dL N 92 LDL Cholesterol 130 mg/dL N 93 Comp Metabolic Panel 02/24/2015 [facility] Sodium 136 mmol/L N 133-145 [address] [place] [address] [phone] Potassium 4.2 mmol/L N 3.5-5.0 Chloride 101 mmol/L N 101-111 Co2 Carbon Dioxide 29 mmol/L N 22-32 Anion Gap 6 mmol/L N 2-11 Glucose 108 mg/dL High 70-100 Blood Urea Nitrogen 12 mg/dL N 6-24 Creatinine 1.04 mg/dL N 0.67-1.17 BUN/Creatinine Ratio 11.5 N 8-20 Calcium 9.4 mg/dL N 8.6-10.3 Total Protein 6.5 g/dL N 6.4-8.9 Albumin 4.4 g/dL N 3.2-5.2 Globulin 2.1 g/dL N 2-4 Albumin/Globulin Ratio 2.1 N 1-3 Total Bilirubin 0.90 mg/dL N 0.2-1.0 Alkaline Phosphatase 54 U/L N 34-104 Alt 37 U/L N 7-52 Ast 30 U/L N 13-39 Egfr Non- 73.6 N >60 Egfr 94.7 N >60 94 CBC Auto Diff 02/24/2015 [facility] White Blood 6.3 10^3/uL N 4.8-10.[address] [place] [address] [phone] Red Blood Count 4.98 10^6/uL N 4.0-5.4 Hemoglobin 14.7 g/dL N 14.0-18.0 Hematocrit 45 % N 42-52 Mean Corpuscular Volume 91 fL N 80-94 Mean Corpuscular Hemoglobin 30 pg N 27-31 Mean Corpuscular HGB Conc 33 g/dL N 31-36 Red Cell Distribution Width 14 % N 10.5-15 Platelet Count 189 10^3/uL N 150-450 Mean Platelet Volume 7 um3 Low 7.4-10.4 Abs Neutrophils 3.8 10^3/uL N 1.5-7.7 Abs Lymphocytes 1.9 10^3/uL N 1.0-4.8 Abs Monocytes 0.5 10^3/uL N 0-0.8 Abs Eosinophils 0.1 10^3/uL N 0-0.6 Abs Basophils 0 10^3/uL N 0-0.2 Abs Nucleated RBC 0.01 10^3/uL N Granulocyte % 59.9 % N 38-83 Lymphocyte % 29.5 % N 25-47 Monocyte % 8.4 % N 1-9 Eosinophil % 1.8 % N 0-6 Basophil % 0.4 % N 0-2 Nucleated Red Blood Cells % 0.1 N Laboratory test 02/24/2015 [facility] Magnesium 1.8 mg/dL Low 1.9-2.[address] [place] [address] [phone] Laboratory test 11/18/2014 [facility] Magnesium 1.8 mg/dL Low 1.9-2.7 95, [address] [place] [address] [phone] Creatine Kinase(CK) 149 U/L N 10-223 97 Comp Metabolic Panel 11/18/2014 [facility] Sodium 138 mmol/L N 133-[address] [place] [address] [phone] Potassium 4.3 mmol/L N 3.5-5.0 Chloride 102 mmol/L N 101-111 Co2 Carbon Dioxide 28 mmol/L N 22-32 Anion Gap 8 mmol/L N 2-11 Glucose 107 mg/dL High 70-100 Blood Urea Nitrogen 12 mg/dL N 6-24 Creatinine 1.03 mg/dL N 0.67-1.17 BUN/Creatinine Ratio 11.7 N 8-20 Calcium 9.4 mg/dL N 8.6-10.3 Total Protein 6.8 g/dL N 6.4-8.9 Albumin 4.4 g/dL N 3.2-5.2 Globulin 2.4 g/dL N 2-4 Albumin/Globulin Ratio 1.8 N 1-3 Total Bilirubin 0.80 mg/dL N 0.2-1.0 Alkaline Phosphatase 54 U/L N 34-104 Alt 34 U/L N 7-52 Ast 28 U/L N 13-39 Egfr Non- 74.7 N >60 Egfr 96.1 N >60 98 Lipid Profile 11/18/2014 [facility] Triglycerides 130 mg/dL N 99 (Trig/Chol/HDL) [address] [place] [address] [phone] Cholesterol 126 mg/dL N 100 HDL Cholesterol 41.7 mg/dL N 101 LDL Cholesterol 58 mg/dL N 102 CBC Auto Diff 09/08/2013 [facility] White Blood 8.1 10^3/uL N 4.8-10.[address] [place] [address] [phone] Red Blood Count 4.65 10^6/uL N 4.0-5.4 Hemoglobin 13.9 g/dL Low 14.0-18.0 Hematocrit 41 % Low 42-52 Mean Corpuscular Volume 89 fL N 80-94 Mean Corpuscular Hemoglobin 30 pg N 27-31 Mean Corpuscular HGB Conc 34 g/dL N 31-36 Red Cell Distribution Width 13 % N 10.5-15 Platelet Count 194 10^3/uL N 150-450 Mean Platelet Volume 7 um3 Low 7.4-10.4 Abs Neutrophils 4.6 10^3/uL N 1.5-7.7 Abs Lymphocytes 2.5 10^3/uL N 1.0-4.8 Abs Monocytes 0.8 10^3/uL N 0-0.8 Abs Eosinophils 0.1 10^3/uL N 0-0.6 Abs Basophils 0 10^3/uL N 0-0.2 Abs Nucleated RBC 0 10^3/uL N Granulocyte % 56.8 % N 38-83 Lymphocyte % 31.5 % N 25-47 Monocyte % 9.6 % High 1-9 Eosinophil % 1.5 % N 0-6 Basophil % 0.6 % N 0-2 Nucleated Red Blood Cells % 0 N Inr/Protime 09/08/2013 [facility] Inr 0.88 N 0.85-1.[address] [place] [address] [phone] Laboratory test 09/08/2013 [facility] Activated 34.0 N 24.0- 36.[address] [place] [place] [address] Thrombo Time [phone] B Type Natriuretic Peptide 48 pg/mL N 103 Comp Metabolic Panel 09/08/2013 [facility] Sodium 138 mmol/L N 133-[address] [place] [address] [phone] Potassium 3.7 mmol/L N 3.7-5.6 Chloride 104 mmol/L N 101-111 Co2 Carbon Dioxide 27 mmol/L N 22-32 Anion Gap 7 mmol/L N 2-11 Glucose 97 mg/dL N 70-100 Blood Urea Nitrogen 10 mg/dL N 6-24 Creatinine 1.15 mg/dL N 0.67-1.17 BUN/Creatinine Ratio 8.7 N 8-20 Calcium 9.4 mg/dL N 8.6-10.3 Total Protein 6.8 g/dL N 6.4-8.9 Albumin 4.3 g/dL N 3.2-5.2 Globulin 2.5 g/dL N 2-4 Albumin/Globulin Ratio 1.7 N 1-3 Total Bilirubin 0.50 mg/dL N 0.2-1.0 Alkaline Phosphatase 45 U/L N 34-104 Alt 34 U/L N 7-52 Ast 28 U/L N 13-39 Egfr Non- 66.0 N >60 Egfr 84.9 N >60 104 Laboratory test 09/08/2013 [facility] Creatine 242 U/L High 10 -[address] [place] [address] [phone] CKMB 09/08/2013 [facility] CKMB ng/mL 3.2 N 0.6-6.[address] ng/[place] [address] [phone] Laboratory test 09/08/2013 [facility] Troponin I 0.00 N <0.03 [address] ng/[place] [address] [phone] T4 7.67 g/dL N 6.09-12.23 TSH (Thyroid Stimulating Horm) 3.97 IU/mL N 0.34-5.60 C Reactive Protein 2.16 mg/L N < 5.00 106 1 Clinical Business Manager: [id number] 2 SEE RESULT BELOW Name: NARGIS GOMEZ : [address]: Mary Smith MD Acct: [id number] Unit: [id number] AGE: 58 Location: ED Re06/04/18 SEX: M Status: REG ER SPEC: [id number] LORAINE: 06/04/[address] [facility] [address]: Mary Smith MD REQ: [id number] RECD: 06/04/18 STATUS: COMP OTHR DR: Akin Kang MD _ SOURCE: NASAL SPDESC: ORDERED: Flu A B Request Procedure Result Reported Site Rapid Influenza A B Request Final 06/04/182206 ML Specimen received for Influenza A/B Molecular testing * ML - Main Lab . END OF REPORT DEPARTMENT OF PATHOLOGY, [address] [place] [address] Castro Conley M.D. Director [facility] # [id number] 3 Clinical Business Manager: [id number] 4 SEE RESULT BELOW Name: NARGIS GOMEZ : [address]: Lucio Rodgers MD Acct: [id number] Unit: [id number] AGE: 58 Location: ED Re02/19/18 SEX: M Status: REG ER SPEC: [id number] LORAINE: 02/19/[address] [facility] [address]: Benjamin KLEIN REQ: [id number] RECD: 02/19/18 STATUS: NAKITA VELASQUEZ DR: Lucio Kang MD _ SOURCE: NASAL SPDESC: ORDERED: Flu A B Request Procedure Result Reported Site Rapid Influenza A B Request Final 02/19/18157 ML Specimen received for Influenza A/B Molecular testing * ML - Main Lab . END OF REPORT DEPARTMENT OF PATHOLOGY, [address] [place] [address] Castro Conley M.D. Director [facility] # [id number] 5 [facility] Severe Sepsis and Septic Shock Management Bundle Measure requires all lactic acids initially measuring >2.0 mmol/L be repeated. 6 Because ethnic data is not always readily [...] 15-29 5 Kidney failure <15 (or dialysis) 7 Specimen Hemolyzed. Result may not be valid. Unable to report test result due to hemolysis. 8 Unable to report test result due to hemolysis. 9 FASTING Copy Result to: HOLLIE VILLALOBOS ([id number]) 10 Because ethnic data is not always readily [...] 15-29 5 Kidney failure <15 (or dialysis) 11 Desirable: <150 Borderline High: 150-199 High: 200-499 Very High: >500 12 Desirable: <200 Borderline High: 200-239 High: >239 13 Low: <40 Desirable: 40-60 High: >60 14 Desirable: <100 Near Optimal: 100-129 Borderline High: 130-159 High: 160-189 Very High: >189 15 FASTING Copy Result to: HOLLIE VILLALOBOS ([id number]) 16 SEE RESULT BELOW Name: NARGIS GOMEZ : [address]: Yovani Guy MD Acct: [id number] Unit: [id number] AGE: 57 Location: [facility] Re01/01/18 SEX: M Status: REG REF SPEC: [id number] LORAINE: 01/01/[address] [facility] [address]: Yovani Guy MD REQ: [id number] RECD: 01/02/18 STATUS: COMP _ S[facility]: ORDERED: Yo calloway PCR Procedure Result Reported Site Stool Specimen Description Final 01/02/18- 1047 ML Stool Color Brown Stool Form Nonformed Stool Consistency Pasty C. difficile PCR Final 01/02/18- 1137 ML Organism 1 027 Presumptive NEGATIVE Organism 2 Toxigenic C.diff POSITIVE * ML - Main Lab . END OF REPORT DEPARTMENT OF PATHOLOGY, [address] [place] [address] Castro Conley M.D. Director [facility] # [id number] 17 SEE RESULT BELOW Name: NARGIS GOMEZ : [address]: Shorty Quiroz MD Acct: [id number] Unit: [id number] AGE: 57 Location: ED Re11/16/17 SEX: M Status: DEP ER SPEC: [id number] LORAINE: 11/16/[address] [facility] [address]: Jordy KLEIN REQ: [id number] RECD: 11/16/17 STATUS: NAKITA VELASQUEZ DR: Shorty Kang MD _ SOURCE: STOOL SPDESC: ORDERED: C. diff PCR COMMENTS: Verbal to [id number] by [email or web address] at 1146 on 11/16/17. Results read back accurately. Procedure Result Reported Site Stool Specimen Description Final 11/16/17- 1107 ML Stool Color Brown Stool Form Nonformed Stool Consistency Mucoid C. difficile PCR Final 11/16/17- 1146 ML Organism 1 027 Presumptive NEGATIVE Organism 2 Toxigenic C.diff POSITIVE * ML - Main Lab . END OF REPORT DEPARTMENT OF PATHOLOGY, [address] [place] [address] Castro Conley M.D. Director [facility] # [id number] 18 SEE RESULT BELOW Name: NARGIS GOMEZ : [address]: Mary Smith MD Acct: [id number] Unit: [id number] AGE: 57 Location: ED Re10/27/17 SEX: M Status: DEP ER SPEC: [id number] LORAINE: 10/27/17-[address] [facility] [address]: Mary Smith MD REQ: [id number] RECD: 10/27/17 STATUS: NAKITA VELASQUEZ DR: Akin Kang MD _ SOURCE: STOOL SPDESC: ORDERED: Yo calloway PCR Procedure Result Reported Site Stool Specimen Description Final 10/27/17- 0843 ML Stool Color Brown Stool Form Nonformed Stool Consistency Pasty C. difficile PCR Final 10/27/17- 551 ML Organism 1 027 Presumptive NEGATIVE Organism 2 Toxigenic C.diff NEGATIVE * ML - Main Lab . END OF REPORT DEPARTMENT OF PATHOLOGY, [address] [place] [address] Castro Conley M.D. Director [facility] # [id number] 19 [facility] Severe Sepsis and Septic Shock Management Bundle Measure requires all lactic acids initially measuring >2.0 mmol/L be repeated. 20 Because ethnic data is not always readily [...] 15-29 5 Kidney failure <15 (or dialysis) 21 SEE RESULT BELOW Name: NARGIS GOMEZ : [address]: Akin Kang MD Acct: [id number] Unit: [id number] AGE: 57 Location: [facility] Re10/10/17 SEX: M Status: REG REF SPEC: [id number] LORAINE: 10/10/17-[address]: Akin Kang MD REQ: [id number] RECD: 10/10/17 STATUS: COMP _ SOURCE: STOOL SPDESC: ORDERED: Yo calloway PCR Procedure Result Reported Site Stool Specimen Description Final 10/11/17- 1116 ML Stool Color Brown Stool Form Nonformed Stool Consistency Pasty Soft C. difficile PCR Final 10/11/17- 1200 ML Organism 1 027 Presumptive NEGATIVE Organism 2 Toxigenic C.diff POSITIVE * ML - Main Lab . END OF REPORT DEPARTMENT OF PATHOLOGY, [address] [place] [address] Castro Conley M.D. Director [facility] # [id number] 22 SEE RESULT BELOW Name: NARGIS GOMEZ : [address]: Yoni Villalobos MD Acct: [id number] Unit: [id number] AGE: 57 Location: LAB Re08/03/17 SEX: M Status: REG REF SPEC: [id number] LORAINE: 08/03/17-[address] [facility] [address]: Darius Villalobos MD REQ: [id number] RECD: 08/03/17 STATUS: COMP _ SOURCE: STOOL [facility]: ORDERED: C. diff PCR Procedure Result Reported Site Stool Specimen Description Final 08/03/17- 1835 ML Stool Color Light Brown Stool Form Nonformed Stool Consistency Mucoid C. difficile PCR Final 08/03/17- 1926 ML Organism 1 027 Presumptive NEGATIVE Organism 2 Toxigenic C.diff POSITIVE * ML - Main Lab . END OF REPORT DEPARTMENT OF PATHOLOGY, [address] [place] [address] Castro Conley M.D. Director [facility] # [id number] 23 FASTING in 2-3 weeks Copy Result to: AKIN KANG ([id number]) 24 Because ethnic data is not always [...] 5 Kidney failure <15 (or dialysis) 25 Desirable: <150 Borderline High: 150-199 High: 200-499 Very High: >500 26 Desirable: <200 Borderline High: 200-239 High: >239 27 Low: <40 Desirable: 40-60 High: >60 28 Desirable: <100 Near Optimal: 100-129 Borderline High: 130-159 High: 160-189 Very High: >189 29 FASTING in 2-3 weeks Copy Result to: AKIN KANG ([id number]) 30 FASTING in 2-3 weeks Copy Result to: AKIN KANG ([id number]) 31 Verbal to [id number] by [email or web address] at 1656 on 06/21/17. Results read back accurately. 32 SEE RESULT BELOW Name: NARGIS GOMEZ : [address]: Shorty Quiroz MD Acct: [id number] Unit: [id number] AGE: 57 Location: ED Re06/21/17 SEX: M Status: DEP ER SPEC: [id number] LORAINE: 06/21/17-[address] [facility] [address]: Shorty Quiroz MD REQ: [id number] RECD: 06/21/17 STATUS: NAKITA VELASQUEZ DR: Akin Kang MD _ SOURCE: STOOL SPDESC: ORDERED: C. diff PCR COMMENTS: Verbal to [id number] by [id number] at 1656 on 06/21/17. Results read back accurately. Procedure Result Reported Site Stool Specimen Description Final 06/22/17- 0800 ML Stool Color Brown Stool Form Nonformed Stool Consistency Liquid C. difficile PCR Final 06/21/17- 1656 ML Organism 1 027 Presumptive NEGATIVE Organism 2 Toxigenic C.diff POSITIVE * ML - Main Lab . END OF REPORT DEPARTMENT OF PATHOLOGY, [address] [place] [address] Castro Conley M.D. Director [facility] # [id number] [address] [facility] Severe Sepsis and Septic Shock Management Bundle Measure requires all lactic acids initially measuring >2.0 mmol/L be repeated. 34 Because ethnic data is not always [...] 5 Kidney failure <15 (or dialysis) 35 Acute inflammation: >10.00 36 Clinical Business Manager: [id number] 37 Because ethnic data is not always readily [...] 15-29 5 Kidney failure <15 (or dialysis) 38 Critical Result LACT:3.0 Called to OTONIEL at: 23:53:52 by:[email or web address] Read back by:OTONIEL [facility] Severe Sepsis and Septic Shock Management Bundle Measure requires all lactic acids initially measuring >2.0 mmol/L be repeated. 39 >100 to <200 pg/mL: likely compensated congestive heart failure (CHF) 200 to 400 pg/mL: likely moderate CHF >400 pg/mL: likely moderate to severe CHF 40 Because ethnic data is not always readily [...] 15-29 5 Kidney failure <15 (or dialysis) 41 Acute inflammation: >10.00 42 Because ethnic data is not always readily [...] 15-29 5 Kidney failure <15 (or dialysis) 43 Desirable <150 Borderline high 150-199 High 200-499 Very High >500 44 Desirable <200 Borderline high 200-239 High >239 45 Low <40 Desirable: 40-60 High: >60 46 Desirable: <100 mg/dL Near Optimal: 100-129 mg/dL Borderline High: 130-159 mg/dL High: 160-189 mg/dL Very High: >189 mg/dL 47 Because ethnic data is not always readily [...] 15-29 5 Kidney failure <15 (or dialysis) 48 Desirable <150 Borderline high 150-199 High 200-499 Very High >500 49 Desirable <200 Borderline high 200-239 High >239 50 Low <40 Desirable: 40-60 High: >60 51 Desirable: <100 mg/dL Near Optimal: 100-129 mg/dL Borderline High: 130-159 mg/dL High: 160-189 mg/dL Very High: >189 mg/dL 52 Test Performed by: [address] [address] 53 HBV DNA level is <20 IU/mL (<1.30 log IU/mL). This assay cannot accurately quantify HBV DNA below this level. Result in log IU/mL is <1.3 The quantification range of this assay is 20 IU/mL to 170,000,000 IU/mL (1.30 log IU/mL to 8.23 log IU/mL). Testing was performed by the [employer] AmpliPrep/TAVON TaqMan HBV test, version 2.0 ([employer] Test Performed by: [address] [address] 54 SEE RESULT BELOW Name: NARGIS GOMEZ : [address]: Lucio Church MD Acct: [id number] Unit: [id number] AGE: 56 Location: ED Re07/21/16 SEX: M Status: DEP ER SPEC: [id number] LORAINE: 07/21/16-[address] [facility] [address]: Lucio Church MD REQ: [id number] RECD: 07/21/16 STATUS: NAKITA VELASQUEZ DR: Akin Kang MD _ SOURCE: STOOL SPDESC: ORDERED: C. diff PCR, Fecal Lactoferr Procedure Result Reported Site Stool Specimen Description Final 07/21/16- 1924 ML Stool Color Brown Stool Form Semi-formed Stool Consistency Pasty Soft C. difficile PCR Final 07/21/16- 2041 ML Organism 1 027 Presumptive NEGATIVE Organism 2 Toxigenic C.diff NEGATIVE Fecal Lactoferrin (Stool WBC) Final 07/21/16- 1925 ML Fecal Lactoferrin Negative by Immunoassay TEST LIMITATIONS: Assay detects elevated levels of lactoferrin released from fecal leukocytes as a marker of intestinal inflammation. The test may not be appropriate in immunocompromised persons. Fecal samples from breast fed infants should not be used with this assay. * ML - [facility]) . END OF REPORT * ML=Testing performed at Main Lab DEPARTMENT OF PATHOLOGY, [address] [place] [address] Castro Conley M.D. Director [facility] # [id number] 55 SEE RESULT BELOW Name: NARGIS GOMEZ : [address]: Lucio Church MD Acct: [id number] Unit: [id number] AGE: 56 Location: ED Re07/21/16 SEX: M Status: DEP ER SPEC: [id number] LORAINE: 07/21/16-[address]: Lucio Church MD REQ: [id number] RECD: 07/21/16 STATUS: NAKITA VELASQUEZ DR: Akin Kang MD _ SOURCE: STOOL [facility]: ORDERED: Stool Culture Procedure Result Reported [...] performed at Main Lab DEPARTMENT OF PATHOLOGY, [address] [place] [address] Castro Conley M.D. Director [facility] # [id number] Patient: NARGIS GOMEZ [id number] (Continued) Specimen: [id number] Collected: 07/21/16-1799 Received: 07/21/16-1834 (Continued) Procedure Result Reported Site Shiga Toxin 1 2 Final (continued) 07/22/16- 1106 * ML - MAIN LAB ([facility]) . END OF REPORT * ML=Testing performed at Main Lab DEPARTMENT OF PATHOLOGY, [address] [place] [address] Castro Conley M.D. Director [facility] # [id number] 56 Because ethnic data is not always [...] 5 Kidney failure <15 (or dialysis) 57 Acute inflammation: >10.[address] [facility] Severe Sepsis and Septic Shock Management Bundle Measure requires all lactic acids initially measuring >2.0 mmol/L be repeated. 59 Because ethnic data is not always readily [...] 15-29 5 Kidney failure <15 (or dialysis) 60 99th percentile=0.04 ng/mL Troponin results at [facility] and [facility] are not interchangeable. 61 Normal Range 180 to 914 Indeterminate Range 145 to 180 Deficient Range <145 62 If clinically indicated, testing for Hepatitis B Core IgM antibody is necessary to differentiate between acute and past HBV infection. Test Performed by: [address] [address] Workers Compensation Administrator: Sterling Razo II, M.D., Ph.D. 63 This assay does not differentiate between reactivity due to a vaccine-induced immune response or an immune response induced by infection with HBV. 64 Because ethnic data is not always readily [...] 15-29 5 Kidney failure <15 (or dialysis) 65 FASTING within 2 m CC:PMD Copy Result to: AKIN KANG ([id number]) 66 FASTING within 2 m CC:PMD Copy Result to: AKIN KANG ([id number]) 67 Desirable <150 Borderline high 150-199 High 200-499 Very High >500 68 Desirable <200 Borderline high 200-239 High >239 69 Low <40 Desirable: 40-60 High: >60 70 Desirable: <100 mg/dL Near Optimal: 100-129 mg/dL Borderline High: 130-159 mg/dL High: 160-189 mg/dL Very High: >189 mg/dL 71 Because ethnic data is not always readily [...] 15-29 5 Kidney failure <15 (or dialysis) 72 FASTING 10 HOUR 73 AM 8.7-22.4 PM <10 74 Serum levels of PSA measured using the [employer] DXI Hybritech immunoassay should not be interpreted [...] methods or kits cannot be used interchangeably. 75 FASTING 76 FASTING 77 Because ethnic data is not always readily [...] 15-29 5 Kidney failure <15 (or dialysis) 78 Desirable <150 Borderline high 150-199 High 200-499 Very High >500 79 Desirable <200 Borderline high 200-239 High >239 80 Low <40 Desirable: 40-60 High: >60 81 Desirable: <100 mg/dL Near Optimal: 100-129 mg/dL Borderline High: 130-159 mg/dL High: 160-189 mg/dL Very High: >189 mg/dL 82 Desirable <150 Borderline high 150-199 High [...] (or dialysis) 87 PT IS FASTING 88 Because ethnic data is not always readily [...] 15-29 5 Kidney failure <15 (or dialysis) 89 PT IS FASTING 90 Desirable <150 Borderline high 150-199 High 200-499 Very High >500 91 Desirable <200 Borderline high 200-239 High >239 92 Low <40 Desirable: 40-60 High: >60 93 Desirable: <100 mg/dL Near Optimal: 100-129 mg/dL Borderline High: 130-159 mg/dL High: 160-189 mg/dL Very High: >189 mg/dL 94 Because ethnic data is not always readily [...] 15-29 5 Kidney failure <15 (or dialysis) 95 PT IS FASTING 96 PT IS FASTING 97 PT IS FASTING 98 Because ethnic data is not always readily [...] 15-29 5 Kidney failure <15 (or dialysis) 99 Desirable <150 Borderline high 150-199 High 200-499 Very High >500 100 Desirable <200 Borderline high 200-239 High >239 101 Low <40 Desirable: 40-60 High: >60 102 Desirable: <100 mg/dL Near Optimal: 100-129 mg/dL Borderline High: 130-159 mg/dL High: 160-189 mg/dL Very High: >189 mg/dL 103 >100 to <200 pg/mL: likely compensated congestive heart failure (CHF) 200 to 400 pg/mL: likely moderate CHF >400 pg/mL: likely moderate to severe CHF [facility] 104 Because ethnic data is not always readily [...] 15-29 5 Kidney failure <15 (or dialysis) 105 Reference Range and Interpretation: TnI (ng/mL) Interpretation Less Than 0.03 ng/mL Not supportive of diagnosis of VT 0.03 - 0.50 ng/mL Indeterminate: suggest serial studies if clinically indicated. Greater than 0.5 ng/mL Consistent with diagnosis of VT 106 Acute inflammation: >10.00 Procedures Date Code Description Status 01/31/2018 72540 EKG Tracing & Interpretation Completed 06/08/2017 07722 EKG Tracing & Interpretation Completed 05/24/2017 [id number] Diabetic Retinal Eye Exam Completed 01/06/2017 95775 Holter Monitor Review (24 hr)dr review & interp only Completed 01/03/2017 17975 ECG Monitor/Recording W/Visual Superimposition Completed Scanning 11/05/2016 25035 EKG Tracing & Interpretation Completed 10/29/2016 46266 ECHO Transthoracic, Real-Time 2D With Doppler And Completed Color Flow 10/12/2016 99532 EKG Tracing & Interpretation Completed 05/27/2016 42742 EKG Tracing & Interpretation Completed 04/20/2016 30816 ECHO Transthorasic Realtime 2D W Doppler & Color Flow Completed Hosp 04/20/2016 31810 EKG, Interpretation Only Completed 03/03/2016 19471 EKG Tracing & Interpretation Completed 07/30/2015 05437 EKG Tracing & Interpretation Completed 03/12/2015 63327 EKG Tracing & Interpretation Completed 12/09/2014 26362 Holter Monitor Review (24 hr)dr review & interp only Completed 12/09/2014 80021 ECG Monitor/Recording W/Visual Superimposition Completed Scanning 12/05/2014 31180 Holter Monitor Review (24 hr)dr review & interp only Completed 12/05/2014 21558 ECG Monitor/Recording W/Visual Superimposition Completed Scanning 11/01/2014 86567 Treadmill Interp/Report Only Completed 11/01/2014 42294 Stress Test Supervsn W/Out I/R Completed 10/08/2014 09866 ECHO Transthoracic, Real-Time 2D With Doppler And Completed Color Flow 09/11/2014 17323 EKG Tracing & Interpretation Completed 04/09/2013 24739 Treadmill Interp/Report Only Completed 04/09/2013 93774 Stress Test Supervsn W/Out I/R Completed 04/09/2013 11306 EKG, Interpretation Only Completed 03/18/2008 60996 Treadmill Interp/Report Only Completed 03/18/2008 60145 Stress Test Supervsn W/Out I/R Completed 03/18/2008 90392 Stress Test Supervsn W/Out I/R Completed 03/15/2008 00563 Color Doppler Completed 03/15/2008 69205 Color Doppler Completed 03/15/2008 34838 Pulse Doppler & Continuous Wave Completed 03/15/2008 46953 Echocardiogram Completed 03/15/2008 36058 Echocardiogram Completed 03/13/2008 34818 Holter Monitor Interpretation Completed Encounters Type Date Location Provider Dx Diagnosis Office Visit 01/31/2018 [facility] Jayshree Rodríguez, I10 Essential ( primary) 3:30p [employer] hypertension I49.5 Sick sinus syndrome G47.30 Sleep apnea, unspecified I44.1 Atrioventricular block, second degree E66.9 Obesity, unspecified Z68.43 Body mass index (BMI) 50-59.9, adult Office Visit 01/04/2018 [facility] Yovani Solis A04.71 Enterocolitis due 10:50a For Infectious Balbir Guy to Clostridium Diseases difficile, recurrent Office Visit 10/25/2017 [facility] Yovani Solis A04.71 Enterocolitis due 11:30a For Infectious Balbir Guy to Clostridium Diseases difficile, recurrent Office Visit 10/18/2017 [place] Jayshree Rodríguez, I10 Essential (primary) 3:30p Cardiology Of N.P. hypertension [facility] E78.5 Hyperlipidemia, unspecified I49.5 Sick sinus syndrome E66.01 Morbid (severe) obesity due to excess calories Office Visit 08/03/2017 [facility] Internal Darius Solis A04.71 Enterocolitis due 4:00p Vee Villalobos M.D.,FACP to [address] Rd difficile, recurrent Office Visit 07/29/2017 [place] Jayshree Rodríguez, I10 Essential (primary) 1:30p Cardiology Of N.PJoni hypertension [facility] E78.5 Hyperlipidemia, unspecified E66.01 Morbid (severe) obesity due to excess calories I49.5 Sick sinus syndrome Office Visit 07/01/2017 3:00p [place] [facility] Jayshree Koehler I10 Essential ( primary) Of [facility] Marcos N.PJoni hypertension E78.5 Hyperlipidemia, unspecified E66.01 Morbid (severe) obesity due to excess calories I49.5 Sick sinus syndrome I48.0 Paroxysmal atrial fibrillation Z68.43 Body mass index (BMI) 50-59.9 , adult Office Visit 06/24/2017 3:00p [facility] Internal Darius Solis A04.72 Enterocolitis d/t Vee Villalobos M.D.,FACP Clostridium [address] difficile, not spcf as recur Z12.11 Encounter for screening for malignant neoplasm of colon Office Visit 06/08/2017 3:40p [facility] Rob Yan I10 Essential (primary) Balbir Dozier hypertension E78.5 Hyperlipidemia, unspecified E66.01 Morbid (severe) obesity due to excess calories I49.5 Sick sinus syndrome I48.0 Paroxysmal atrial fibrillation I42.9 Cardiomyopathy, unspecified G47.30 Sleep apnea, unspecified Office Visit 05/26/2017 2:45p [place] [facility] Brien Carreon, R51 Headache Services Of Conchita Mcgregor Z86.73 Prsnl hx of TIA (TIA), and cereb infrc w/o resid deficits 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A. Office Visit 02/08/2017 [place] Moura I48.0 Paroxysmal atrial 3:30p Cardiology fibrillation R00.1 Bradycardia, unspecified I42.9 Cardiomyopathy, unspecified G45.9 Transient cerebral ischemic attack, unspecified G47.33 Obstructive sleep apnea (adult) (pediatric) Office Visit 01/21/2017 Joe Carreon I48.0 Paroxysmal atrial 2:45p Neurologic M.D. fibrillation Services Of [facility] R51 Headache Z86.73 Prsnl hx of TIA (TIA), and cereb infrc w/o resid deficits Office Visit 12/02/2016 Joe Carreon G45.9 Transient 1:00p Neurologic M.D. cerebral ischemic Services Of [facility] attack, unspecified G43.B0 Ophthalmoplegic migraine, not intractable I48.0 Paroxysmal atrial fibrillation H53.8 Other visual disturbances Office Visit 11/05/2016 1:00p Huy Mane I42.9 Cardiomyopathy, Cardiology Of LATOYA unspecified [facility] R53.83 Other fatigue G47.33 Obstructive sleep apnea (adult) (pediatric) E66.9 Obesity, unspecified I10 Essential (primary) hypertension Office Visit 10/12/2016 Joe Yan R94.31 Abnormal 1:20p Cardiology Balbir Dozier electrocardiogram [ECG] [EKG] R53.83 Other fatigue G47.33 Obstructive sleep apnea (adult) (pediatric) I42.9 Cardiomyopathy, unspecified R00.1 Bradycardia, unspecified E03.9 Hypothyroidism, unspecified Office Visit 07/13/2016 [facility] Akin M16.9 Osteoarthritis of 1:20p Vee Kang M.D. hip, unspecified [address] B18.1 Chronic viral hepatitis B without delta-agent Office Visit 06/25/2016 11:40a [facility] Internal Akin Kang, M25.551 Pain in Medicine - [place] M.D. right hip Rd R19.7 Diarrhea, unspecified E55.9 Vitamin D deficiency, unspecified B35.1 Tinea unguium D51.9 Vitamin B12 deficiency anemia, unspecified B18.1 Chronic viral hepatitis B without delta-agent B37.9 Candidiasis, unspecified Office Visit 05/27/2016 1:00p [facility] Lena Mane, I10 Essential (primary) [place] hypertension E78.2 Mixed hyperlipidemia H53.8 Other visual disturbances E66.01 Morbid (severe) obesity due to excess calories Office Visit 04/30/2016 [facility] Internal [place] R73.9 Hyperglycemia, 1:00p Vee Kang M.D. [address] G43.109 Migraine with aura, not intractable, w/o status migrainosus E66.01 Morbid (severe) obesity due to excess calories I10 Essential (primary) hypertension R53.83 Other fatigue E55.9 Vitamin D deficiency, unspecified E78.2 Mixed hyperlipidemia Office Visit 04/21/2016 7:09a [facility] Torrie Vaughn, H53.9 Unspecified Assoc,pc N.P. visual Hospitalists disturbance G45.9 Transient cerebral ischemic attack, unspecified I10 Essential (primary) hypertension E66.9 Obesity, unspecified Office Visit 04/20/2016 Neurohospitalist Benjamin H53.8 Other visual 1:30p Clinic MD Justo disturbances R42 Dizziness and giddiness I10 Essential (primary) hypertension E78.5 Hyperlipidemia, unspecified Office 04/19/2016 [facility] Mike H53.9 Unspecified Visit 7:07a Assoc,pc LATOYA Mohr visual Hospitalists disturbance G45.9 Transient cerebral ischemic attack, unspecified E66.9 Obesity, unspecified I10 Essential (primary) hypertension Office Visit 03/19/2016 2:00p [facility] Internal Akin Kang, I10 Essential Medicine - Balbir (primary) [place] hypertension E78.5 Hyperlipidemia, unspecified K21.9 Gastro-esophageal reflux disease without esophagitis G47.33 Obstructive sleep apnea (adult) (pediatric) Z00.00 Encntr for general adult medical exam w/o abnormal findings B35.6 Tinea cruris M16.9 Osteoarthritis of hip, unspecified E66.01 Morbid (severe) obesity due to excess calories E03.9 Hypothyroidism, unspecified Z12.5 Encounter for screening for malignant neoplasm of prostate Z12.11 Encounter for screening for malignant neoplasm of colon G47.09 Other insomnia Office Visit 03/03/2016 Joe Yan E78.5 Hyperlipidemia, 1:30p Cardiology Balbir Dozier unspecified I10 Essential (primary) hypertension I48.0 Paroxysmal atrial fibrillation E66.01 Morbid (severe) obesity due to excess calories Office Visit 10/13/2015 10:20a [facility] Internal [place] Francois M79.1 Myalgia Vee Balbir Philip [place] Office Visit 09/30/2015 1:00p [place] LATOYA Wright E78.5 Hyperlipidemia, unspecified I10 Essential (primary) hypertension I48.0 Paroxysmal atrial fibrillation E66.01 Morbid (severe) obesity due to excess calories M79.1 Myalgia Office Visit 08/29/2015 10:30a Huy Mane E78.5 Hyperlipidemia, Cardiology Of [place] 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 I10 Essential (primary) hypertension I48.0 Paroxysmal atrial fibrillation E66.01 Morbid (severe) obesity due to excess calories M79.1 Myalgia G47.33 Obstructive sleep apnea (adult) (pediatric) R53.83 Other fatigue Z68.43 Body mass index (BMI) 50-59.9 , adult Office Visit 07/30/2015 Joe Yan E78.5 Hyperlipidemia, 1:00p Cardiology Balbir Dozier unspecified I10 Essential (primary) hypertension I48.0 Paroxysmal atrial fibrillation E66.01 Morbid (severe) obesity due to excess calories Office Visit 05/26/2015 1:30p Joe Mane E78.5 Hyperlipidemia, Cardiology [place] unspecified I10 Essential (primary) hypertension I48.0 Paroxysmal atrial fibrillation E66.01 Morbid (severe) obesity due to excess calories I87.2 Venous insufficiency (chronic) (peripheral) Office Visit 03/31/2015 1:30p [place] Lena Mane, E78.5 Hyperlipidemia, Cardiology Of [place] unspecified [facility] I10 Essential (primary) hypertension I48.0 Paroxysmal atrial fibrillation E66.01 Morbid (severe) obesity due to excess calories I87.2 Venous insufficiency (chronic) (peripheral) Office Visit 03/12/2015 10:00a [place] [facility] Rob Yan R00.2 Palpitations Balbir Dozier I10 Essential (primary) hypertension E66.01 Morbid (severe) obesity due to excess calories I87.2 Venous insufficiency (chronic) (peripheral) Office Visit 11/29/2014 9:15a [place] [facility] Lena Mane, 401.9 Hypertension Unspec Of [facility] [place] 785.1 Palpitations 427.31 Atrial Fibrillation 427.69 Premature Beats Other 278.01 Obesity Morbid Office Visit 11/01/2014 3:37p [facility] Rob Yan 786.50 Pain Chest Balbir Dozier Unspec 401.9 Hypertension Unspec 785.1 Palpitations 780.79 Malaise And Fatigue Other Office Visit 09/11/2014 11:45a [place] [facility] Rob Yan 427.69 Premature Beats Of Conchita Dozier M.D. Other 278.01 Obesity Morbid 401.9 Hypertension Unspec 785.1 Palpitations 794.31 Electrocardiogram (ECG) (EKG) Abnormal Office Visit 07/31/2014 Pulmonology And Tabitha Lopez, 327.23 Obstructive 1:15p Sleep Services Of NITISH, RN, SHRINK PIT SUPERVISOR- Sleep Apnea [facility] Adult & Pediatric Office Visit 04/10/2013 [facility] Haley Castro, 786.50 Pain Chest 10:40a rach Ferrara M.D. Unspec Hospitalists Office Visit 04/09/2013 [facility] Ortiz Aj 786.50 Pain Chest 10:39a rach Ferrara II, M.D. Unspec Hospitalists Office Visit 03/18/2008 [facility] Rob Yan 427.69 Premature Beats 1:00p Balbir Dozier Other 401.0 Hypertension Malignant 794.31 Electrocardiogram (ECG) (EKG) Abnormal 278.01 Obesity Morbid Plan of Treatment 01/31/2018 - Jayshree Rodríguez, N.P.I10 Essential (primary) hypertensionComments: BP 130/80Follow up:OV JFM 6moRecommendations:Please try to check BP 1-2x daily and call if top number consistently >140.I49.5 Sick sinus grnugxnaA22.30 Sleep apnea, zwurnnjiyndY67.1 Atrioventricular block, second aaafasL72.9 Obesity , wylmvutmtokS89.43 Body mass index (BMI) 50-59.9, adultReferral:[facility], NutritionistRecommendations:Please to try to return to pool and engage in regular moderate exercise. I resent referral to [facility]
[2018-07-18 21:23] VITALS: BP 146/82
[2018-07-18] MEDS ORDERED: Ondansetron ODT TAB* 4 MG PO ONE (22:01)
--- NOTE | 2018-07-18 22:05 | UC ---
Nausea/Vomiting/Diarrhea HPI - HPI Summary HPI Summary: 58-year-old male comes in with a chief complaint of nausea vomiting and diarrhea. Patient has had some upper respiratory tract infection symptoms for about 2 days and then developed nausea vomiting and diarrhea. The pain is diffuse and crampy and comes and goes. He does have an area of the epigastrium where he feels like there is a knot in it. He has been able to eat and drink some. He is passing gas and continuing to have diarrhea. Patient has a history of C. difficile diarrhea. He reports this is not smelling C. difficile at this time. He has had some chills wonders if he's had a fever. He seen Dr. Dave for his C. difficile. - History of Current Complaint Chief Complaint: UCGI Stated Complaint: NAUSEA, AND DIARRHEA Time Seen by Provider: 07/18/18 21:43 Pain Intensity: 6 - Allergies/Home Medications Allergies/Adverse Reactions: Allergies Allergy/AdvReac Type Severity Reaction Status Date / Time hydromorphone Allergy Severe Altered Verified 07/18/18 21:23 Mental Status cephalexin Allergy Intermediate Hives Verified 07/18/18 21:23 erythromycin base Allergy Intermediate Hives Verified 07/18/18 21:23 Penicillins Allergy Intermediate Hives Verified 07/18/18 21:23 Tetracyclines Allergy Intermediate Hives Verified 07/18/18 21:23 sumatriptan Allergy Unknown Verified 07/18/18 21:23 Reaction Details Iodinated contrast media Allergy Unknown Unknown Uncoded 07/18/18 21:23 Reaction Details Home Medications: Home Medications Aspirin [Aspir-Low] 81 mg PO DAILY WITH MEAL 07/18/18 [History Confirmed ] Riboflavin (Vitamin B2) [Riboflavin] 400 mg PO DAILY WITH MEAL 07/18/18 [ History Confirmed 07/18/18] Vitamin B Complex [Super B-50 Complex] 1 each PO DAILY WITH MEAL 07/18/18 [ History Confirmed 07/18/18] PMH/Surg Hx/FS Hx/Imm Hx Previously Healthy: Yes - C DIFF Endocrine History: Hypothyroidism Cardiovascular History: Hypertension GI/ History: Gastroesophageal Reflux Other History Of: Negative For: Anticoagulant Therapy - Surgical History Surgical History: Yes Surgery Procedure, Year, and Place: INGUINAL HERNIA REPAIR A CHILD, 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 - Family History Known Family History: Positive: Hypertension - Social History Alcohol Use: None Alcohol Amount: quit 1985 Substance Use Type: None Substance Use Comment - Amount & Last Used: quit 1985 Smoking Status (MU): Former Smoker Have You Smoked in the Last Year: No - Immunization History Most Recent Influenza Vaccination: 2012 Most Recent Tetanus Shot: 2011 Most Recent Pneumonia Vaccination: none Review of Systems All Other Systems Reviewed And Are Negative: Yes Constitutional: Positive: Chills Skin: Positive: Negative Eyes: Positive: Negative ENT: Positive: Nasal Discharge Cardiovascular: Positive: Negative Gastrointestinal: Positive: Abdominal Pain, Vomiting, Diarrhea, Nausea Genitourinary: Positive: Negative Motor: Positive: Negative Neurovascular: Positive: Negative Musculoskeletal: Positive: Negative Neurological: Positive: Negative Psychological: Positive: Negative Is Patient Immunocompromised?: No Physical Exam Triage Information Reviewed: Yes Appearance: No Pain Distress, Well-Nourished, Ill-Appearing - MILD Vital Signs: Initial Vital Signs Temp 99.1 F 07/18/18 21:17 Pulse 62 07/18/18 21:17 Resp 20 07/18/18 21:17 BP 146/82 07/18/18 21:17 Pulse Ox 99 07/18/18 21:17 Vital Signs Reviewed: Yes Eye Exam: Normal Eyes: Positive: Conjunctiva Clear ENT: Positive: Nasal congestion Neck exam: Normal Neck: Positive: Supple Respiratory: Positive: Lungs clear, Normal breath sounds, No respiratory distress Cardiovascular: Positive: RRR Abdomen Description: Positive: Other: - MILD TENDERNESS TO PALPATION IN THE EPIGASTRIUM. OTHERWISE NON TENDER TO PALPATION. NO REBOUND. NO GUARDING. Bowel Sounds: Positive: Hypoactive Musculoskeletal Exam: Normal Musculoskeletal: Positive: Strength Intact, ROM Intact Neurological Exam: Normal Neurological: Positive: Alert, Muscle Tone Normal Psychological Exam: Normal Psychological: Positive: Age Appropriate Behavior Skin Exam: Normal Naus/Vom/Diarrhea Course/Dx - Course Course Of Treatment: Patient is given Zofran for nausea. At this time he does not have an acute abdomen. Afebrile here in clinic. He reports the diarrhea does not smell like C. difficile at this time. Resending home with a stool kit so that he can collect a sample and bring it to the lab. I let him know the comes up positive he should contact infectious disease. We also discussed that if he gets worse he gets fevers he gets more pain he feels ill he needs to go the emergency department right away. - Differential Dx/Diagnosis Provider Diagnosis: Nausea vomiting and diarrhea, Abdominal pain Condition At Discharge: Stable Discharge - Sign-Out/Discharge Documenting (check all that apply): Patient Departure All imaging exams completed and their final reports reviewed: No Studies - Discharge Plan Condition: Stable Disposition: HOME Prescriptions: Ondansetron ODT TAB* [Zofran 4 MG Odt TAB*] 4 mg PO Q6H PRN #10 tab.odt PRN Reason: Nausea Patient Education Materials: Acute Nausea and Vomiting (ED), Acute Diarrhea (ED ), Abdominal Pain (ED) Forms: *Work Release Referrals: Akin Kang MD [Primary Care Provider] - Brooks PAYNE,Yovani Solis [Medical Doctor] - Additional Instructions: FOLLOW UP WITH YOUR DOCTOR IF NOT COMPLETELY IMPROVED. FOLLOW UP WITH DR TERRELL IF YOUR STOOL IS POSITIVE FOR C. DIFF. GO TO THE EMERGENCY DEPARTMENT FOR ANY WORSENING OF YOUR CONDITION; PAIN, FEVER , YOU FEEL ILL, YOU FEEL LIKE PASSING OUT OR QUESTIONS OR CONCERNS. - Billing Disposition and Condition Condition: STABLE Disposition: Home
== END 2018-07-18 22:20 | disposition home or self-care (01) ==
LOC: UCEAST 21:02
DX: R11.2 Nausea with vomiting, unspecified (principal); R19.7 Diarrhea, unspecified; R10.9 Unspecified abdominal pain; Z87.891 Personal history of nicotine dependence; I10 Essential (primary) hypertension; Z79.82 Long term (current) use of aspirin; Z88.1 Allergy status to other antibiotic agents; Z88.0 Allergy status to penicillin; Z91.041 Radiographic dye allergy status; Z88.5 Allergy status to narcotic agent; Z88.8 Allergy status to other drugs, medicaments and biological substances
CPT/HCPCS: 99212; A9270-GY; G0463

== ENCOUNTER 2018-07-19 18:32 | Emergency (ER) | payer SELFPAY ==
[2018-07-19] MEDS ORDERED: NS 0.9% 1000 ML** 2,000 ML IV ONE (21:40)
--- NOTE | 2018-07-19 21:41 | ED ---
Abdominal Pain/Male - HPI Summary HPI Summary: A 58 y/o M presents to ED with c/o abd pain described as bloating and "like a knot" onset two days ago. He states it feels similar to when he had c diff last year. He felt at baseline over the weekend (three and four days ago). Associated sx: decreased appetite, occ palpitations, gassy, nausea, diarrhea. Denies vomiting, pedal edema. No previous abd surgeries. He had c diff for 10 months last year. He was on Vancomycin and Flagyl, and ultimately, had a fecal transplant. PMHx: hiatal hernia, hypothyroid, GERD, a-fib with 1st degree block. - History of Current Complaint Chief Complaint: EDGeneral Stated Complaint: HEADACHE/NAUSEA/ABD PAIN PER PT Time Seen by Provider: 07/19/18 21:34 Hx Obtained From: Patient Onset/Duration: Gradual Onset, Lasting Days, Still Present Timing: Constant Severity Initially: Moderate Severity Currently: Severe Pain Intensity: 7 Pain Scale Used: 0-10 Numeric Location: Diffuse Character: Other: - bloated, "a knot" Associated Signs And Symptoms: Positive: Decreased Appetite, Nausea, Diarrhea, Other - pos: occasional palpitations, gassy. neg:pedal edema. Negative: Vomiting - Allergies/Home Medications Allergies/Adverse Reactions: Allergies Allergy/AdvReac Type Severity Reaction Status Date / Time hydromorphone Allergy Severe Altered Verified 07/18/18 21:23 Mental Status cephalexin Allergy Intermediate Hives Verified 07/18/18 21:23 erythromycin base Allergy Intermediate Hives Verified 07/18/18 21:23 Penicillins Allergy Intermediate Hives Verified 07/18/18 21:23 Tetracyclines Allergy Intermediate Hives Verified 07/18/18 21:23 sumatriptan Allergy Unknown Verified 07/18/18 21:23 Reaction Details Iodinated contrast media Allergy Unknown Unknown Uncoded 07/18/18 21:23 Reaction Details PMH/Surg Hx/FS Hx/Imm Hx Previously Healthy: No Endocrine/Hematology History: Reports: Hx Thyroid Disease - h/o thyroid storm Denies: Hx Anticoagulant Therapy, Hx Diabetes, Other Endocrine/Hematological Disorders Cardiovascular History: Reports: Hx Atrial Fibrillation, Hx Hypercholesterolemia , Hx Hypertension, Other Cardiovascular Problems/Disorders - ATRIAL FIB 2000 2ndry to thyroid storm Denies: Hx Angina, Hx Coronary Artery Disease, Hx Myocardial Infarction, Hx Pacemaker/ICD, Hx Valvular Heart Disease Respiratory History: Reports: Hx Asthma - exercise induced, Hx Sleep Apnea - CPAP - no humidification (working on it)., Other Respiratory Problems/Disorders - PN X 2 WINTER 2011 Denies: Hx Chronic Obstructive Pulmonary Disease (COPD) GI History: Reports: Hx Gastroesophageal Reflux Disease, Hx Hiatal Hernia, Other GI Disorders - Hx gastritis Denies: Hx Ulcer History: Reports: Hx Kidney Stones Denies: Hx Renal Disease, Other Problems/Disorders Musculoskeletal History: Reports: Hx Arthritis - 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 , arthritis in neck, Other Musculoskeletal History - DJD Sensory History: Reports: Hx Contacts or Glasses Denies: Hx Hearing Aid, Other Sensory Impairments Opthamlomology History: Reports: Hx Contacts or Glasses Denies: Other Sensory Impairments Neurological History: Reports: Hx Headaches - "sinus headaches", Hx Migraine Denies: Hx Dementia, Hx Seizures, Other Neuro Impairments/Disorders Psychiatric History: Denies: Hx Panic Disorder, Hx Substance Abuse, Other Psychiatric Issues/ Disorders - Surgical History Surgery Procedure, Year, and Place: INGUINAL HERNIA REPAIR A CHILD, 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 - Immunization History Date of Tetanus Vaccine: utd Date of Influenza Vaccine: 2015 Infectious Disease History: Yes Infectious Disease History: Reports: Hx Clostridium Difficile, Hx Hepatitis - 1985, Hx Shingles Denies: Hx Human Immunodeficiency Virus (HIV), Hx Tuberculosis, Traveled Outside the [place] in Last 30 Days - Family History Known Family History: Positive: Hypertension - Social History Occupation: Unemployed - OTHER Lives: Alone Alcohol Use: None Alcohol Amount: quit 1985 Hx Substance Use: Yes - none currently Substance Use Type: Reports: None Substance Use Comment - Amount & Last Used: quit 1985 Hx Tobacco Use: Yes - not currently Smoking Status (MU): Former Smoker Have You Smoked in the Last Year: No Review of Systems Negative: Fever Positive: Palpitations - occassionally Positive: Abdominal Pain - described as bloated, Diarrhea, Nausea, Other - pos: gassy, decreased appetite. Negative: Vomiting Negative: Edema All Other Systems Reviewed And Are Negative: Yes Physical Exam - Summary Physical Exam Summary: Appearance: Well-appearing, Obese, lying in bed comfortably, no acute distress Skin: Warm, dry, no obvious rash Eyes: sclera anicteric, no conjunctival pallor ENT: mucous membranes moist, pharynx appears normal Neck: Supple, nontender Respiratory: Clear to auscultation, no signs of respiratory distress Cardiovascular: Normal S1, S2. No murmurs. Normal distal pulses in tibial and radial bilaterally. Abdomen: Obese, Soft, minimal upper quadrant tenderness and peritoneal signs, normal active bowel sounds present Musculoskeletal: Normal, Strength/ROM Intact Neurological: A&Ox3, awake and alert, mentation is normal, speech is fluent and appropriate Psychiatric: affect is normal, does not appear anxious or depressed Triage Information Reviewed: Yes Vital Signs On Initial Exam: Initial Vitals Temp Pulse Resp BP Pulse Ox 98.9 F 72 16 168/77 96 07/19/18 18:59 07/19/18 18:59 07/19/18 18:59 07/19/18 18:59 07/19/18 18:59 Vital Signs Reviewed: Yes Diagnostics - Vital Signs Vital Signs Temp Pulse Resp BP Pulse Ox 07/19/18 21:00 99.2 F 64 16 143/70 97 07/19/18 18:59 98.9 F 72 16 168/77 96 - Laboratory Result Diagrams: 07/19/18 21:57 07/19/18 21:57 Lab Statement: Any lab studies that have been ordered have been reviewed, and results considered in the medical decision making process. - CT A/P CT CT Interpretation Completed By: Radiologist Summary of CT Findings: IMPRESSION: Stable colonic diverticulosis without evidence for acute diverticulitis. No evidence for colitis or enteritis. ED provider has reviewed this report. - EKG 2307 Cardiac Rate: NL - 63 bpm EKG Rhythm: Sinus Rhythm ST Segment: Normal Ectopy: None Summary of EKG Findings: NSR at 63 BPM, P waves, QRS complex, and T waves are within normal limits, T waves and intervals are normal, no ischemic changes. Re-Evaluation - Re-Evaluation 1 Re-Evaluation Time: 00:15 Change: Improved Comment: Discussing results with pt. Abdominal Pain Male Course/Dx - Course Course Of Treatment: Pt is a 58 y/o M presenting for abd pain described as bloating and "like a knot" onset two days ago. He states it feels similar to when he had c diff last year for 10 months. Associated sx: decreased appetite, occ palpitations, gassy, nausea, diarrhea. Denies vomiting, pedal edema. No previous abd surgeries. PMHx: hiatal hernia, hypothyroid, GERD, a-fib with 1st degree block. Labwork is unremarkable. UA is unremarkable. EKG shows NSR at 63 bpm. Stool is negative for blood, c.diff. A/P CT shows "stable colonic diverticulosis without evidence for acute diverticulitis. No evidence for colitis or enteritis.". Will discharge patient home. - Diagnoses Provider Diagnoses: Acute diarrhea Discharge - Sign-Out/Discharge Documenting (check all that apply): Patient Departure - DC Patient Received Moderate/Deep Sedation with Procedure: No - Discharge Plan Condition: Stable Disposition: HOME Patient Education Materials: Acute Diarrhea (ED) Forms: *Work Release Referrals: Akin Kang MD [Primary Care Provider] - 2 Days (if no better) Additional Instructions: The c. diff test and CT scan of the abdomen both looked normal, so we are on safe ground to let you go home. Hopefully your symptoms will george over the next couple of days. - Billing Disposition and Condition Condition: STABLE Disposition: Home - Attestation Statements Document Initiated by Terie: Yes Documenting Scribe: Alvin Combs Provider For Whom Noah is Documenting (Include Credential): Dr. Lucio Rodgers MD Scribe Attestation: I, Alvin Combs, scribed for Dr. Lucio Rodgers MD on 07/20/18 at 0545. Scribe Documentation Reviewed: Yes Provider Attestation: The documentation as recorded by the Alvin hobbs accurately reflects the service I personally performed and the decisions made by me, Dr. Lucio Rodgers MD Status of Scribe Document: Viewed
[2018-07-19] MEDS ORDERED: diPHENhydraMINE IV* 50 MG/ML 1 ml VIAL (BENADRYL) IV ONE (21:59)
[2018-07-19] MEDS ORDERED: methylPREDNISolone SOD 40 MG* 1 ML VIAL IV ONE (22:00)
[2018-07-19 22:04] LABS: ABS Basophils 0 10^3/ul (0-0.2); ABS Eosinophils 0.1 10^3/ul (0-0.6); ABS Lymphocytes 1.6 10^3/ul (1.0-4.8); ABS Monocytes 0.6 10^3/ul (0-0.8); ABS Neutrophils 5.9 10^3/ul (1.5-7.7); ABS Nucleated RBC 0 10^3/ul; Eosinophil % 0.8 %; Hematocrit 47 % (36-46); Hemoglobin 15.5 g/dL (14.0-18.0); Lymphocyte % 19.4 %; Mean Corpuscular HGB Conc 33 g/dL (31-36); Mean Corpuscular Hemoglobin 30 pg (27-31); Mean Corpuscular Volume 89 fL (80-94); Mean Platelet Volume 6.6 fL (7.4-10.4); Nucleated Red Blood Cells % 0; Platelet Count 236 10^3/uL (150-450); Red Blood Count 5.24 10^6 /uL (4.18-5.48); Red Cell Distribution Width 14 % (10.5-15); White Blood Count 8.2 10^3/uL (3.5-10.8)
[2018-07-19 22:23] LABS: Albumin 4.6 g/dL (3.2-5.2); Albumin/Globulin Ratio 1.8 (1-3); BUN/Creatinine Ratio 11.2 (8-20); Calcium 9.7 mg/dL (8.6-10.3); EGFR African American 85.3 (>60); EGFR Non-African American 70.5 (>60); Globulin 2.6 g/dL (2-4); Potassium 4.2 mmol/L (3.5-5.0); Total Bilirubin 0.6 mg/dL (0.2-1.0); Total Protein 7.2 g/dL (6.4-8.9)
[2018-07-19 23:37] LABS: Urine Appearance Cloudy; Urine Bilirubin Negative (Negative); Urine Blood Negative (Negative); Urine Color Amber; Urine Glucose Negative (Negative); Urine Ketones Negative (Negative); Urine Nitrite Negative (Negative); Urine Protein Negative (Negative); Urine Specific Gravity 1.025 (1.010-1.030); Urine Urobilinogen Negative (Negative)
[2018-07-20 00:30] VITALS: BP 149/82
== END 2018-07-20 00:29 | disposition home or self-care (01) ==
LOC: ED 18:32
DX: R19.7 Diarrhea, unspecified (principal); K57.30 Diverticulosis of large intestine without perforation or abscess without bleeding; R11.0 Nausea; R00.2 Palpitations; R14.0 Abdominal distension (gaseous); I48.91 Unspecified atrial fibrillation; I44.0 Atrioventricular block, first degree; K21.9 Gastro-esophageal reflux disease without esophagitis; K44.9 Diaphragmatic hernia without obstruction or gangrene; E03.9 Hypothyroidism, unspecified; Z88.5 Allergy status to narcotic agent; Z88.0 Allergy status to penicillin; Z88.8 Allergy status to other drugs, medicaments and biological substances; Z88.1 Allergy status to other antibiotic agents; Z91.041 Radiographic dye allergy status; Z87.891 Personal history of nicotine dependence
CPT/HCPCS: 36415; 74176; 80053; 81003; 82272; 83605; 83630; 83690; 85025; 87045; 87046; 87493; 87899; 99282

== ENCOUNTER 2018-09-18 11:11 | Emergency (ER) | payer OTHER ==
--- NOTE | 2018-09-18 11:35 | ED ---
Lower Extremity - HPI Summary HPI Summary: Pt is a 58 y/o M presenting to the ED with a chief complaint of LLE pain. 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 He reports pain throughout his L lower back, thigh, knee, and calf, but the knee is the most painful. He also reports decreased ROM of the leg as the day goes on, and slight edema, with sx aggravated by movement. He denies erythema or warmth of the area, as well as abd pain. - History of Current Complaint Chief Complaint: EDExtremityLower Stated Complaint: LEFT LEG INJ PER PT Time Seen by Provider: 09/18/18 11:20 Hx Obtained From: Patient Mechanism Of Injury: Other - pt fell on him at work Onset of Pain: Immediate, Post Accident Onset/Duration: Still Present Severity Initially: Moderate Severity Currently: Severe Pain Intensity: 7 Pain Scale Used: 0-10 Numeric Timing: Constant, Lasting Hours Location: Is Diffuse - LLE Associated Signs And Symptoms: Positive: Swelling, Knee Pain. Negative: Redness , Bruising, Abdominal Pain Aggravating Factor(s): Movement Alleviating Factor(s): Nothing Able to Bear Weight: Yes - Allergies/Home Medications Allergies/Adverse Reactions: Allergies Allergy/AdvReac Type Severity Reaction Status Date / Time hydromorphone Allergy Severe Altered Verified 09/18/18 11:26 Mental Status cephalexin Allergy Intermediate Hives Verified 09/18/18 11:26 erythromycin base Allergy Intermediate Hives Verified 09/18/18 11:26 Penicillins Allergy Intermediate Hives Verified 09/18/18 11:26 Tetracyclines Allergy Intermediate Hives Verified 09/18/18 11:26 sumatriptan Allergy Unknown Verified 09/18/18 11:26 Reaction Details Iodinated contrast media Allergy Unknown Unknown Uncoded 09/18/18 11:16 Reaction Details PMH/Surg Hx/FS Hx/Imm Hx Previously Healthy: No Endocrine/Hematology History: Reports: Hx Thyroid Disease - h/o thyroid storm Denies: Hx Anticoagulant Therapy, Hx Diabetes, Other Endocrine/Hematological Disorders Cardiovascular History: Reports: Hx Atrial Fibrillation, Hx Hypercholesterolemia , Hx Hypertension, Other Cardiovascular Problems/Disorders - ATRIAL FIB 2000 2ndry to thyroid storm Denies: Hx Angina, Hx Coronary Artery Disease, Hx Myocardial Infarction, Hx Pacemaker/ICD, Hx Valvular Heart Disease Respiratory History: Reports: Hx Asthma - exercise induced, Hx Sleep Apnea - CPAP - no humidification (working on it)., Other Respiratory Problems/Disorders - PN X 2 WINTER 2011 Denies: Hx Chronic Obstructive Pulmonary Disease (COPD) GI History: Reports: Hx Gastroesophageal Reflux Disease, Hx Hiatal Hernia, Other GI Disorders - Hx gastritis Denies: Hx Ulcer History: Reports: Hx Kidney Stones Denies: Hx Renal Disease, Other Problems/Disorders Musculoskeletal History: Reports: Hx Arthritis - 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 , arthritis in neck, Other Musculoskeletal History - DJD Sensory History: Reports: Hx Contacts or Glasses Denies: Hx Hearing Aid, Other Sensory Impairments Opthamlomology History: Reports: Hx Contacts or Glasses Denies: Other Sensory Impairments Neurological History: Reports: Hx Headaches - "sinus headaches", Hx Migraine Denies: Hx Dementia, Hx Seizures, Other Neuro Impairments/Disorders Psychiatric History: Denies: Hx Panic Disorder, Hx Substance Abuse, Other Psychiatric Issues/ Disorders - Surgical History Surgery Procedure, Year, and Place: INGUINAL HERNIA REPAIR A CHILD, 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 - Immunization History Date of Tetanus Vaccine: utd Date of Influenza Vaccine: 2015 Infectious Disease History: No Infectious Disease History: Reports: Hx Clostridium Difficile, Hx Hepatitis - 1985, Hx Shingles Denies: Hx Human Immunodeficiency Virus (HIV), Hx Tuberculosis, Traveled Outside the [place] in Last 30 Days - Family History Known Family History: Positive: Hypertension - Social History Alcohol Use: None Alcohol Amount: quit 1985 Hx Substance Use: Yes - none currently Substance Use Type: Reports: None Substance Use Comment - Amount & Last Used: quit 1985 Hx Tobacco Use: Yes - not currently Smoking Status (MU): Former Smoker Have You Smoked in the Last Year: No Review of Systems Negative: Abdominal Pain Positive: Myalgia, Decreased ROM, Edema Negative: Bruising, Other - warmth All Other Systems Reviewed And Are Negative: Yes Physical Exam - Summary Physical Exam Summary: Appearance: Well appearing, no pain distress Skin: warm, dry, reflects adequate perfusion Head/face: normal Eyes: EOMI, MARTHA ENT: normal Neck: supple, non-tender Respiratory: CTA, breath sounds present Cardiovascular: RRR, pulses symmetrical Abdomen: non-tender, soft Musculoskeletal: Tenderness over L knee and L calf with mild restriction of movement of the L knee. There is no neurovascular deficit. Neuro: normal, sensory motor intact, A&Ox3 Triage Information Reviewed: Yes Vital Signs On Initial Exam: Initial Vitals Temp Pulse Resp BP Pulse Ox 98.6 F 69 20 173/84 96 09/18/18 11:14 09/18/18 11:14 09/18/18 11:14 09/18/18 11:14 09/18/18 11:14 Vital Signs Reviewed: Yes Diagnostics - Vital Signs Vital Signs Temp Pulse Resp BP Pulse Ox 09/18/18 11:14 98.6 F 69 20 173/84 96 - Laboratory Lab Statement: Any lab studies that have been ordered have been reviewed, and results considered in the medical decision making process. - Radiology Knee XR Radiology Interpretation Completed By: Radiologist Summary of Radiographic Findings: MILD OSTEOARTHRITIS WITH A SMALL JOINT EFFUSION. NO ACUTE OSSEOUS INJURY. IF SYMPTOMS PERSIST, RECOMMEND REPEAT IMAGING. ED physician has reviewed this report. - Ultrasound No standard instances Ultrasound Interpretation Completed By: Radiologist Summary of Ultrasound Findings: LLE US: No evidence for left lower extremity deep vein thrombosis. ED physician has reviewed this report. Lower Extremity Course/Dx - Course Course Of Treatment: Pt is a 58 y/o M presenting to the ED with a chief complaint of LLE pain. He reports pain throughout L lower back, thigh, knee, and calf, as well as decreased ROM and slight edema to the knee. He denies abd pain, erythema, or warmth of the area. Pt's physical exam reveals tenderness over the L knee and calf with mild restriction of ROM of the L knee. There are no neurovascular deficits. US of the LLE shows no evidence for left lower extremity DVT. Knee XR shows: MILD OSTEOARTHRITIS WITH A SMALL JOINT EFFUSION. NO ACUTE OSSEOUS INJURY. IF SYMPTOMS PERSIST, RECOMMEND REPEAT IMAGING. Pt will be discharged home with instructions to follow up with his PCP. He is stable and agreeable with this plan. - Diagnoses Differential Diagnosis/HQI/PQRI: Positive: Contusion, Sprain, Strain Provider Diagnoses: Knee pain, Knee effusion Discharge - Sign-Out/Discharge Documenting (check all that apply): Patient Departure Patient Received Moderate/Deep Sedation with Procedure: No - Discharge Plan Condition: Stable Disposition: HOME Referrals: Akin Kang MD [Primary Care Provider] - Additional Instructions: Please follow up with your primary care provider within the next 2-3 days. Return to the emergency department with any new or worsening symptoms. - Billing Disposition and Condition Condition: STABLE Disposition: Home - Attestation Statements Document Initiated by Marco Antonioibed: Yes Documenting Scribe: Amira Montano Provider For Whom Noah is Documenting (Include Credential): Serge Martinez MD. Scribe Attestation: Amira Couch, scribed for Serge Martinez MD. on 09/18/18 at 1608. Scribe Documentation Reviewed: Yes Provider Attestation: The documentation as recorded by the Amira hobbs accurately reflects the service I personally performed and the decisions made by Serge caruso MD. Status of Scribe Document: Viewed
[2018-09-18 13:19] VITALS: BP 132/60
== END 2018-09-18 13:18 | disposition home or self-care (01) ==
LOC: ED 11:11
DX: M25.562 Pain in left knee (principal); M25.462 Effusion, left knee; M17.12 Unilateral primary osteoarthritis, left knee; M54.5 Low back pain; Z88.5 Allergy status to narcotic agent; Z88.0 Allergy status to penicillin; Z88.8 Allergy status to other drugs, medicaments and biological substances; Z88.1 Allergy status to other antibiotic agents; Z91.041 Radiographic dye allergy status; Z87.891 Personal history of nicotine dependence
CPT/HCPCS: 99282

== ENCOUNTER 2018-09-22 03:21 | Inpatient (IN) | payer OTHER ==
[2018-09-22] MEDS ORDERED: Aspirin 81 mg CHEW TAB* 81 MG TAB.CHEW PO ONE (03:43)
--- NOTE | 2018-09-22 03:48 | ED ---
HPI Chest Pain - HPI Summary HPI Summary: The patient is a 58 y/o M presenting to [facility] arriving by ambulance with a chief complaint of diffuse chest pressure starting tonight. He states that he got home from work at 2330 last night, and then he had some nausea with chest pressure. He additionally reports heart palpitations with HR in the 130s, and he is currently anxious. He denies abd pain. In 2000, he had afib and toxic thyroid. No recent stress test (last one over a year ago with Dr. Dozier). States he was taken off of Metoprolol a year ago. Had Cortisone injection today for torn meniscus. Recent DVT study for pain in leg and knee; came back negative. Hx of HTN, no DM. Former smoker, no EtOH, no substance use. - History of Current Complaint Chief Complaint: EDChestWallPain Time Seen by Provider: 09/22/18 03:36 Hx Obtained From: Patient Onset/Duration: Started Hours Ago, Still Present Timing: Lasting Minutes Initial Severity: Moderate Current Severity: Mild Pain Intensity: 0 Pain Scale Used: 0-10 Numeric Chest Pain Location: Diffuse Chest Pain Radiates: No Character: Dull/Aching Aggravating Factor(s): Nothing Alleviating Factor(s): Nothing Associated Signs and Symptoms: Positive: Chest Pain - pressure, Anxiety, Nausea , Palpitations. Negative: Abdominal Pain - Additional Pertinent History Primary Care Physician: [id number] - Allergy/Home Medications Allergies/Adverse Reactions: Allergies Allergy/AdvReac Type Severity Reaction Status Date / Time hydromorphone Allergy Severe Altered Verified 09/18/18 11:26 Mental Status cephalexin Allergy Intermediate Hives Verified 09/18/18 11:26 erythromycin base Allergy Intermediate Hives Verified 09/18/18 11:26 Penicillins Allergy Intermediate Hives Verified 09/18/18 11:26 Tetracyclines Allergy Intermediate Hives Verified 09/18/18 11:26 Iodinated Contrast- Oral and Allergy See Comment Verified 09/22/18 05:44 IV Dye sumatriptan Allergy Unknown Verified 09/18/18 11:26 Reaction Details Home Medications: Home Medications Sertraline* [Zoloft*] 100 mg PO BEDTIME 09/22/18 [History Confirmed 09/22/18] PMH/Surg Hx/FS Hx/Imm Hx Endocrine/Hematology History: Reports: Hx Thyroid Disease - h/o thyroid storm Denies: Hx Anticoagulant Therapy, Hx Diabetes, Other Endocrine/Hematological Disorders Cardiovascular History: Reports: Hx Atrial Fibrillation, Hx Hypercholesterolemia , Hx Hypertension, Other Cardiovascular Problems/Disorders - ATRIAL FIB 2000 2ndry to thyroid storm Denies: Hx Angina, Hx Coronary Artery Disease, Hx Myocardial Infarction, Hx Pacemaker/ICD, Hx Valvular Heart Disease Respiratory History: Reports: Hx Asthma - exercise induced, Hx Sleep Apnea - CPAP - no humidification (working on it)., Other Respiratory Problems/Disorders - PN X 2 WINTER 2011 Denies: Hx Chronic Obstructive Pulmonary Disease (COPD) GI History: Reports: Hx Gastroesophageal Reflux Disease, Hx Hiatal Hernia, Other GI Disorders - Hx gastritis Denies: Hx Ulcer History: Reports: Hx Kidney Stones Denies: Hx Renal Disease, Other Problems/Disorders Musculoskeletal History: Reports: Hx Arthritis - 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 , arthritis in neck, Other Musculoskeletal History - DJD Sensory History: Reports: Hx Contacts or Glasses Denies: Hx Hearing Aid, Other Sensory Impairments Opthamlomology History: Reports: Hx Contacts or Glasses Denies: Other Sensory Impairments Neurological History: Reports: Hx Headaches - "sinus headaches", Hx Migraine Denies: Hx Dementia, Hx Seizures, Other Neuro Impairments/Disorders Psychiatric History: Denies: Hx Panic Disorder, Hx Substance Abuse, Other Psychiatric Issues/ Disorders - Surgical History Surgery Procedure, Year, and Place: INGUINAL HERNIA REPAIR A CHILD, 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 - Immunization History Date of Tetanus Vaccine: utd Date of Influenza Vaccine: 2015 Infectious Disease History: No Infectious Disease History: Reports: Hx Clostridium Difficile, Hx Hepatitis - 1985, Hx Shingles Denies: Hx Human Immunodeficiency Virus (HIV), Hx Tuberculosis, Traveled Outside the [place] in Last 30 Days - Family History Known Family History: Positive: Hypertension - Social History Occupation: Employed Full-time Alcohol Use: None Alcohol Amount: quit 1985 Hx Substance Use: Yes - none currently Substance Use Type: Reports: None Substance Use Comment - Amount & Last Used: quit 1985 Hx Tobacco Use: Yes - not currently Smoking Status (MU): Former Smoker Do You Chew or Dip Tobacco: No Have You Chewed or Dipped Tobacco in the LAST YEAR: No Have You Smoked in the Last Year: No Review of Systems Positive: Palpitations, Chest Pain - pressure, diffuse Positive: Nausea. Negative: Abdominal Pain Positive: Anxious All Other Systems Reviewed And Are Negative: Yes Physical Exam - Summary Physical Exam Summary: Appearance: Well appearing, obese, no pain distress Skin: warm, dry, reflects adequate perfusion Head/face: normal Eyes: EOMI, MARTHA ENT: normal Neck: supple, non-tender Respiratory: CTA, breath sounds present Cardiovascular: RRR, pulses symmetrical Abdomen: non-tender, soft Musculoskeletal: normal, strength/ROM intact Neuro: normal, sensory motor intact, A&Ox3 Triage Information Reviewed: Yes Vital Signs On Initial Exam: Initial Vitals Temp Pulse Resp BP Pulse Ox 98.0 F 105 16 159/78 98 09/22/18 03:24 09/22/18 03:24 09/22/18 03:24 09/22/18 03:24 09/22/18 03:24 Vital Signs Reviewed: Yes Diagnostics - Vital Signs Vital Signs Temp Pulse Resp BP Pulse Ox 09/22/18 03:24 98.0 F 105 16 159/78 98 - Laboratory Result Diagrams: 09/22/18 18:54 09/22/18 18:54 Lab Statement: Any lab studies that have been ordered have been reviewed, and results considered in the medical decision making process. - Radiology CXR Radiology Interpretation Completed By: Radiologist Summary of Radiographic Findings: No acute process. ED physician has reviewed this radiology report. - EKG 0331 Cardiac Rate: Tachycardia - 108 BPM EKG Rhythm: Sinus Tachycardia Summary of EKG Findings: No ST elevations Re-Evaluation - Re-Evaluation First Eval Re-Evaluation Time: 05:20 Comment: I spoke with the patient concerning admission to [facility]. Chest Pain Course/Dx - Course Assessment/Plan: The patient is a 58 y/o M presenting to [facility] arriving by ambulance with a chief complaint of diffuse chest pressure starting tonight with associated heart palpitations and nausea. Hx of afib and HTN. Upon physical exam, there are no acute abnormalities. In the ED course, the patient was administered Ns, Aspirin for pain, and Ativan for anxiety. Blood work obtained. EKG reveals tachycardia at 108 BPM. CXR impression reveals no acute process. He is diagnosed with chest pain and hyperglycemia. I spoke with Dr. Corral concerning the patients case, and he accepts the patient for admission at 0515. He agrees with this plan and understands the need for admission at this time. - Chest Pain Differential Diagnosis/HQI/PQRI: Acute MO, ACS, Lower Respiratory Infection - Diagnoses Provider Diagnoses: Chest pain, Hyperglycemia - Provider Notifications Discussed Care Of Patient With: Darius Corral - hospitalist Time Discussed With Above Provider: 05:15 Instructed by Provider To: Other - I discussed the patient's case with Dr. Corral , and he accepts the patient for admission at this time. Discharge - Sign-Out/Discharge Documenting (check all that apply): Patient Departure - Patient is accepted for admission by Dr. Corral. Patient Received Moderate/Deep Sedation with Procedure: No - Discharge Plan Condition: Stable Disposition: ADMITTED TO [facility] - Billing Disposition and Condition Condition: STABLE Disposition: Admitted to [facility] - Attestation Statements Document Initiated by Noah: Yes Documenting Scribe: Vaishnavi Drew Provider For Whom Noah is Documenting (Include Credential): Dr. Serge Martinez MD Scribe Attestation: Vaishnavi Couch, scribed for Dr. Serge Martinez MD on 09/22/18 at 1941. Scribe Documentation Reviewed: Yes Provider Attestation: The documentation as recorded by the Vaishnavi hobbs accurately reflects the service I personally performed and the decisions made by me, Dr. Serge Martinez MD Status of Scribe Document: Viewed
[2018-09-22 04:04] LABS: ABS Lymphocytes 0.9 10^3/ul (1.0-4.8); ABS Monocytes 0.2 10^3/ul (0-0.8); ABS Neutrophils 7.7 10^3/ul (1.5-7.7); Hematocrit 44 % (42-52); Hemoglobin 14.6 g/dL (14.0-18.0); Lymphocyte % 10.5 %; Mean Corpuscular HGB Conc 33 g/dL (31-36); Mean Corpuscular Hemoglobin 30 pg (27-31); Mean Corpuscular Volume 89 fL (80-94); Mean Platelet Volume 6.8 fL (7.4-10.4); Platelet Count 227 10^3/uL (150-450); Red Blood Count 4.96 10^6 /uL (4.18-5.48); Red Cell Distribution Width 14 % (10.5-15); White Blood Count 8.8 10^3/uL (3.5-10.8)
--- OUTSIDE RECORDS SUMMARY | 2018-09-22 04:08 | XMS REPORT | Continuity of Care Document ---
:1960 External Reference #:[id number] Author Name Mario Brantleya Care Team Providers Name Role Phone Eugenie Durham MD Primary Care Physician Unavailable Payers Date Identification Numbers Payment Provider Subscriber Policy Number: [id number] [facility]) Nargis Gomez PayID: [id number] [address] [place] [address] Effective: 2017 Policy Number: [id number] [employer] Nargis Gomez Expires: 2018 PayID: [id number] [address] [address] [place] [address] Effective: 2017 Policy Number: [id number] [employer] Nargis Gomez Expires: 2018 PayID: [id number] [address] [address] [place] [address] Effective: 2017 Policy Number: [id number] Medicaid Nargis Gomez Expires: 2017 Group Name: 1 1 [address] PayID: [id number] [place] [address] Effective: 2017 Policy Number: [id number] [employer] Nargis Gomez Expires: 2017 PayID: [id number] [place] [address] [place] [address] Effective: 2017 Policy Number: [id number] Medicaid Nargis Gomez Expires: 2017 Group Name: 1 1 [address] PayID: [id number] [place] [address] Problems Active Problems Provider Date Obstructive sleep apnea of adult Tabitha Lopez DNP RN, Onset: 07/31/2014 [employer]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 Onset: 03/19/2016 Hyperlipidemia Akin Kang M.D. Onset: 03/19/2016 Gastroesophageal reflux disease Akin Kang M.D. Onset: 03/19/2016 Obstructive sleep apnea syndrome Akin Kang M.D. Onset: 03/19/2016 Kidney stone Akin Kang M.D. Onset: 03/19/2016 Abnormal glucose level Akin Kang M.D. Onset: 04/30/2016 Migraine with typical aura Akin Kang M.D. Onset: 04/30/2016 Morbid obesity Akin Kang M.D. Onset: 04/30/2016 Vitamin D deficiency Akin Kang M.D. Onset: 04/30/2016 Mixed hyperlipidemia Akin Kang M.D. 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 Onset: 07/13/2016 delta-agent Osteoarthritis of hip, unspecified Akin Kang M.D. Onset: 07/13/2016 Transient cerebral ischemia Brien Carreon M.D. Onset: 01/21/2017 Paroxysmal atrial fibrillation Brien Carreon M.D. Onset: 01/21/2017 Abnormal gait Akin Kang M.D. Onset: 03/22/2017 Binocular vision disorder Akin Kang M.D. Onset: 03/22/2017 Chronic sinusitis Akin Kang M.D. Onset: 04/14/2017 Hypothyroidism Akin Kang M.D. Onset: 04/14/2017 Headache Brien Carreon M.D. Onset: 05/26/2017 Family History Date Family Member(s) Observation Comments [...] Marijuana quit 1985 regularly Smoking Status Reviewed: 09/21/18 Heavy tobacco smoker (more than 10 cigarettes/day) Exercise Type/Frequency Exercises sporadically Allergies, Adverse Reactions, Alerts Active Allergies Reaction Severity Comments Date Tricyclic Antidepressants 07/31/2014 Penicillin Anaphylaxis Severe 09/11/2014 Keflex Anaphylaxis Severe 09/11/2014 Tetracycline Anaphylaxis Severe 09/11/2014 Erythromycin Urticaria Moderate 09/11/2014 Imitrex 05/26/2017 Medications Active Medications SIG Qnty Indications Ordering Date Provider Bubba Odt Q6H 10tabs Unknown 07/18/2018 4mg Tablets Dispers Flunisolide 2 sprays each 25ml R09.81 Félix Marcus NP 06/15/2018 25mcg/Act nostril twice (0.025%) Solution daily Co Q10 take 1 by mouth 3 30caps E78.5 Félix Marcus NP 10/18/2017 100mg Capsules x week Meclizine HCL 1-2 tab two times 60tabs R26.81 Félix Marcus NP 04/14/2017 12.5mg a day as needed Tablets Rosuvastatin Calcium 1/2 tablet five 30tabs E78.2 Rob Yan 05/27/2016 times per week Balbir Dozier 5mg Tablets Compression Stockings knee high closed 1Pair E66.01 Rob Yan 05/27/2016 toe light Balibr Dozier [facility] compression -please measure for size Ketoconazole apply twice a day 120gm B35.6 Akin 03/19/2016 2% Cream as needed Balbir Kang Clonazepam 1 tab at bedtime 10tabs G47.09 Félix Marcus NP 03/19/2016 0.5mg as needed Tablets Amlodipine Besylate 1 tab twice daily 180tabs I10 Jayshree GilliamJoni Rodríguez, 2014 N.P. 2.5mg Tablets [employer] 1 pair daily as 2Pair I87.2 Rob Yan 03/12/2015 15-20MMHG/Knee needed Balbir Dozier High/Closed Toe/Large Misc Magnesium Oxide 1 by mouth twice 90tabs Rob Yan 11/19/2014 400mg daily Balbir Dozier Tablets Inspra 2 by mouth every 180tabs Rob Yan 11/01/2014 25mg Tablets day Balbir Dozier Aspir-81 1 by mouth every Unknown 07/30/2014 81mg Tablets day Levothyroxine Sodium 1 by mouth every 30tabs Félix Marcus NP 07/30/2014 day 200mcg Tablets Zoloft 1 1/2 tabs by 45tabs Félix Marcus NP 100mg Tablets mouth daily Riboflavin 1 po qd, pt to Unknown 400mg slowly titrate Capsules dose Zantac 1 by mouth every Unknown 150mg Tablets day prn Guaifenesin 10 cc every 4 hrs Unknown as needed Vitamin D3 1 tablet daily Unknown 2000Iu Acetaminophen 1 gm po prn Unknown 500mg Tablets Stress 500 PO once daily Unknown B-Complex/Zinc Tablets Gas-X Extra Strength one cap by mouth Unknown every 6 hours as 125mg Capsules needed for abdominal pain History Medications Terbinafine HCL 1 by mouth every 28tabs B37.2 Félix aMrcus NP 06/14/2018 - 250mg day for 4 weeks 07/21/2018 Tablets Nasonex spray 1 sprays 17units R09.81 Félix Marcus NP 06/14/2018 - 50mcg/Act in each nostril 06/15/2018 Suspension twice daily Golytely drink 1/2 bottle 1units Yovani Solis 01/10/2018 - 236gm Solution the night before Balbir Guy 01/30/2018 Rec procedure Vancomycin HCL 1 po 4 times 56caps A04.71 Yovani Solis 10/25/2017 - 125mg daily Balbir Guy 01/30/2018 Capsules Metronidazole 1 by mouth three 30tabs Wyocena 10/11/2017 - 500mg timses a day/no Balbir Kang 10/11/2017 Tablets alcohol until 5 days after you are done. Vancomycin HCL 1 cap 4 times a 56caps Wyocena 10/11/2017 - 125mg day x14 days Balbir Kang 10/25/2017 Capsules Vancocin HCL 1 tab qid for 10 40caps Darius Solis 08/04/2017 - 125mg days Balbir Villalobos,FACP 08/14/2017 Capsules Metronidazole take one by 63tabs Telly Gannon, 08/03/2017 - 500mg mouth three M.DJoni 08/04/2017 Tablets times daily for 21 days Metronidazole three times a 21tabs Telly Gannon, 06/24/2017 - 500mg day for 21 days M.DJoni 07/15/2017 Tablets Diovan 1 /2 mouth 30tabs I10 Rob Yan 06/08/2017 - 40mg Tablets every day Balbir Dozier 06/24/2017 Valium use 1h before 2tabs R26.81 Wyocena 04/14/2017 - 5mg Tablets mri, may repeat Balbir Kang 06/24/2017 after 1hour if needed Clindamycin HCL 1 tabs by mouth 40caps J01.90 Wyocena 03/22/2017 - 300mg every 6h Balbir Kang 05/24/2017 Capsules Lamisil 1 tab by mouth 30tabs Wyocena 06/28/2016 - 250mg Tablets every day for 12 Balbir Kang 03/22/2017 wks Pt states he did not start (01/21/17) plans on taking in the future Clotrimazole apply twice 45gm B37.9 Wyocena 06/25/2016 - 1% Cream daily (not Balbir Kang 01/20/2017 using) Protonix 1 by mouth every 30tabs Wyocena 08/12/2015 - 20mg Tablets day (Pt states Balbir Kang 03/19/2016 DR he is taking it only as prn) Crestor 1/2 tab by mouth 30tabs Rob Yan 04/07/2015 - 5mg Tablets mondays, Balbir Dozier 03/03/2016 wed, fridays only (on hold-per pt) Zocokatheryn Take 1 tab po 30tabs Rob Yan 03/31/2015 - 10mg Tablets QHS Balbir Dozier 04/07/2015 Effer-K 1 by mouth once 100tabs 427.69 Rob Yan 11/01/2014 - 20Meq Tablets a day hold as of Balbir Dozier 09/30/2015 Efferv 4.6.16 Toprol XL 1/2 tab by mouth 45tabs Rob Yan 11/01/2014 - 25mg Tablets every other day Balbir Dozier 08/03/2017 ER 24HR (mratir) Toprol XL 2 by mouth qd 200tabs Rob Yan 09/11/2014 - 25mg Tablets Balbir Dozier 11/01/2014 ER 24HR Effer-K 1 by mouth twice 60tabs 427.69 Rob Yan 09/11/2014 - 20Meq Tablets day Balbir Dozier 11/01/2014 Efferv Tylenol as needed Tabitha Lopez, 07/31/2014 - DNP, RN, 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 - 40mg Tablets other day Balbir Dozier 08/12/2015 DR Skaggs 1 by mouth every Unknown - 20mg Tablets night at bedtime 03/31/2015 hold as of 11.18.15 Aspir-81 1 by mouth every Unknown - 81mg Tablets day 11/28/2014 DR Garcia 2 tabs by mouth Unknown - 325mg Tablets every 6h as 05/14/2014 needed pain Levothyroxine Sodium Unknown - 05/24/2017 200mcg Tablets Acidophilus 1 by mouth every Unknown - Tablets day 01/30/2018 Medications Administered in Office Medication SIG Qnty Indications Ordering Provider Date Depomedrol 40MG RAKESH Mcmullen 09/21/2018 Injection Immunizations CPT Code Status Date Vaccine Lot # [id number] Given 02/21/2018 Influenza Virus Vaccine, Quadrivalent, Split, Preservative Free [id number] Given 07/31/2014 Fluvirin Im 3Yrs And Older Vital Signs Date Vital Result Comment 09/21/2018 2:07pm Height 71 inches 5'11" Weight 350.00 lb Heart Rate 78 /min BP Systolic 148 mmHg BP Diastolic 76 mmHg Respiratory Rate 18 /min Body Temperature 98.1 F Pain Level 10 BMI (Body Mass Index) 48.8 kg/m2 06/14/2018 1:22pm Height 71 inches 5'11" Weight [...] Date Facility Test Result H/L Range Note Laboratory test 07/19/2018 [facility] C Difficile PCR SEE RESULT [address] [place] [address] [phone] Urinalysis 07/19/2018 [facility] Urine Color [place] Profile [address] [place] [address] [phone] Urine Appearance Cloudy Urine Specific [place] 1.025 N 1.010-1.030 Urine pH 5.0 N 5-9 Urine Urobilinogen Negative Negative Urine Ketones Negative Negative Urine Protein Negative Negative Urine Leukocytes Negative Negative Urine Blood Negative Negative * * Abnormal Negative 2 Urine Nitrite Negative Negative Urine Bilirubin Negative Negative Urine Glucose Negative Negative Stool Occult 07/19/2018 [facility] Stool Occult SEE RESULT 3 Blood Diag [address] Blood, [place] [address] [phone] CBC Auto Diff 07/19/2018 [facility] White Blood 8.2 10^3/uL N 3.5-10. [address] Count 8 [place] [address] [phone] Red Blood Count 5.24 10^6/uL N 4.18-5.48 Hemoglobin 15.5 g/dL N 14.0-18.0 Hematocrit 47 % High 36-46 Mean Corpuscular Volume 89 fL N 80-94 Mean Corpuscular Hemoglobin 30 pg N 27-31 Mean Corpuscular HGB Conc 33 g/dL N 31-36 Red Cell Distribution Width 14 % N 10.5-15 Platelet Count 236 10^3/uL N 150-450 Mean Platelet Volume 6.6 fL Low 7.4-10.4 Abs Neutrophils 5.9 10^3/uL N 1.5-7.7 Abs Lymphocytes 1.6 10^3/uL N 1.0-4.8 Abs Monocytes 0.6 10^3/uL N 0-0.8 Abs Eosinophils 0.1 10^3/uL N 0-0.6 Abs Basophils 0 10^3/uL N 0-0.2 Abs Nucleated RBC 0 10^3/uL Granulocyte % 72.3 % Lymphocyte % 19.4 % Monocyte % 7.0 % Eosinophil % 0.8 % Basophil % 0.5 % Nucleated Red Blood Cells % 0 Laboratory test 07/19/2018 [facility] Lactic Acid 1.7 mmol/L N 0.5-2.0 4 finding [address] [place] [address] [phone] Laboratory test 07/19/2018 [facility] Lipase 36 U/L N 11.0- 82.[address] [place] [address] [phone] Comp Metabolic 07/19/2018 [facility] Sodium 139 mmol/L N 135- [address] [place] [address] [phone] Potassium 4.2 mmol/L N 3.5-5.0 Chloride 103 mmol/L N 101-111 Co2 Carbon Dioxide 25 mmol/L N 22-32 Anion Gap 11 mmol/L N 2-11 Glucose 101 mg/dL High 70-100 Blood Urea Nitrogen 12 mg/dL N 6-24 Creatinine 1.07 mg/dL N 0.67-1.17 BUN/Creatinine Ratio 11.2 N 8-20 Calcium 9.7 mg/dL N 8.6-10.3 Total Protein 7.2 g/dL N 6.4-8.9 Albumin 4.6 g/dL N 3.2-5.2 Globulin 2.6 g/dL N 2-4 Albumin/Globulin Ratio 1.8 N 1-3 Total Bilirubin 0.60 mg/dL N 0.2-1.0 Alkaline Phosphatase 53 U/L N 34-104 Alt 39 U/L N 7-52 Ast 33 U/L N 13-39 Egfr Non- 70.5 >60 Egfr 85.3 >60 5 Rapid Influenza 06/04/2018 [facility] Influenza A NEGATIVE Negative 6 A & B Molecular [address] [place] [address] [phone] Influenza B Molecular NEGATIVE Negative Laboratory test 06/04/2018 [facility] Rapid Influenza SEE RESULT [address] [place] [address] [phone] Laboratory test 02/19/2018 [facility] C Reactive 2.14 mg/L N < 8.[address] [place] [address] [phone] Troponin-I (TnI) 0.00 ng/mL <0.04 TSH (Thyroid Stim Horm) 5.10 mcIU/mL N 0.34-5.60 Comp Metabolic Panel 02/19/2018 [facility] Sodium 139 mmol/L N 135-145 [address] [place] [address] [phone] Chloride 106 mmol/L N 101-111 Co2 Carbon [...] Egfr Non- 69.0 >60 Egfr 83.5 >60 8 Potassium TNP mmol/L 3.5-5.0 9 Anion Gap 10 mmol/L N 2-11 Ast TNP U/L 13-39 10 Laboratory test 02/19/2018 [facility] Lactic Acid 1.7 mmol/L N 0.5-2.0 11 finding [address] [place] [address] [phone] Laboratory test 02/19/2018 [facility] Potassium 3.7 mmol/L N 3.5-5.[address] [place] [address] [phone] Ast Redraw 31 U/L N 13-39 Rapid Influenza 02/19/2018 [facility] Influenza A NEGATIVE Negative 12 A & B Molecular [address] [place] [address] [phone] Influenza B Molecular NEGATIVE Negative CBC Auto Diff 02/19/2018 [facility] White Blood 7.8 10^3/uL N 3.5-10.[address] [place] [address] [phone] Red Blood Count 4.89 10^6/uL N 4.00-5.40 [...] Blood Cells % 0.1 Laboratory test 02/19/2018 [facility] Rapid SEE RESULT [address] [place] [address] Antigen [phone] Lipid Panel - 01/23/2018 [facility] Creatine 173 U/L N 10-22 14, [address] Kinase(CK) 3 [place], [place] [id number] [phone] Comp Metabolic 01/23/2018 [facility] Sodium 140 mmol/L N 135- [address] [place] [address] [phone] Potassium 4.4 mmol/L N 3.5-5.0 Chloride 104 [...] Egfr Non- 81.9 >60 Egfr 99.1 >60 16 Lipid Profile 01/23/2018 [facility] Triglycerides 114 mg/dL 17 (Trig/Chol/HDL) [address] [place] [address] [phone] Cholesterol 130 mg/dL 18 HDL Cholesterol 40.0 mg/dL 19 LDL Cholesterol 67 mg/dL 20 Laboratory test 01/01/2018 [facility] C Difficile PCR SEE RESULT [address] [place] [address] [phone] Laboratory test 11/16/2017 [facility] C Difficile PCR SEE RESULT [address] [place] [address] [phone] Laboratory test 10/27/2017 [facility] C Difficile PCR SEE RESULT [address] [place] [address] [phone] Laboratory test 10/27/2017 [facility] Magnesium 2.0 mg/dL N 1.9-2. finding [address] 7 [place] [address] [phone] Lipase 43 U/L N 11.0-82.0 C Reactive Protein 2.19 mg/L N <8.01 CBC Auto Diff 10/27/2017 [facility] White Blood 5.7 10^3/uL N 3.5-10.[address] [place] [address] [phone] Red Blood Count 4.73 10^6/uL N 4.00-5.40 [...] Blood Cells % 0 Laboratory test 10/27/2017 [facility] Lactic Acid 1.5 mmol/L N 0.5-2.0 24 finding [address] [place] [address] [phone] Comp Metabolic 10/27/2017 [facility] Sodium 137 mmol/L N 135- 145 Panel [address] [place] [address] [phone] Potassium 4.3 mmol/L N 3.5-5.0 Chloride 105 [...] Egfr Non- 79.2 >60 Egfr 95.9 >60 25 Laboratory test 10/10/2017 [facility] C Difficile PCR SEE RESULT [address] [place] [address] [phone] CBC Auto Diff 08/03/2017 [facility] White Blood 7.4 10^3/uL N 3.5-[address] Count .8 [place] [address] [phone] Red Blood Count 5.00 10^6/uL N 4.0-5.4 [...] Blood Cells % 0 Laboratory test 08/03/2017 [facility] C Difficile PCR SEE RESULT [address] [place] [address] [phone] Lipid Profile 08/02/2017 [facility] Triglycerides 149 mg/dL 28, 29 (Trig/Chol/HDL) [address] [place] [address] [phone] Cholesterol 175 mg/dL 30 HDL Cholesterol 38.2 mg/dL 31 LDL Cholesterol 107 mg/dL 32 Comp Metabolic Panel 08/02/2017 [facility] Sodium 139 mmol/L N 139-[address] [place] [address] [phone] Potassium 4.5 mmol/L N 3.5-5.0 Chloride 104 [...] Egfr Non- 85.3 >60 Egfr 109.7 >60 33 Laboratory test 08/02/2017 [facility] Creatine 171 U/L N 10- 223 [address] Kinase(CK) [place] [address] [phone] TSH (Thyroid Stim Horm) 5.15 mcIU/mL N 0.34-5.60 35 Laboratory test 06/21/2017 [facility] C Difficile SEE RESULT 36, [address] [place] [address] [phone] CBC Auto Diff 06/21/2017 [facility] White Blood 6.1 10^3/uL N 3.5-[address] Count 0.8 [place] [address] [phone] Red Blood Count 4.97 10^6/uL N 4.0-5.4 [...] Blood Cells % 0.1 Laboratory test finding 06/21/2017 [facility] Lipase 36 U/L N 11.0-82.0 [address] [place] [address] [phone] C Reactive Protein 1.96 mg/L N < 5.00 38 Laboratory test 06/21/2017 [facility] Lactic Acid 1.6 mmol/L N 0.5-2.0 39 finding [address] [place] [address] [phone] Urinalysis 06/21/2017 [facility] Urine Color Yellow Profile [address] [place] [address] [phone] Urine Appearance Clear Urine Specific [place] 1.020 N 1.010-1.030 Urine pH 5.0 N 5-9 Urine Urobilinogen Negative Negative Urine Ketones Negative Negative Urine Protein Negative Negative Urine Leukocytes Negative Negative Urine Blood Negative Negative Urine Nitrite Negative Negative Urine Bilirubin Negative Negative Urine Glucose Negative Negative Comp Metabolic Panel 06/21/2017 [facility] Sodium 137 mmol/L N 133-145 [address] [place] [address] [phone] Potassium 4.1 mmol/L N 3.5-5.0 Chloride 103 [...] Egfr Non- 76.5 >60 Egfr 98.4 >60 40 Rapid Influenza 06/13/2017 [facility] Influenza A NEGATIVE Negative 41 A & B Molecular [address] [place] [address] [phone] Influenza B Molecular NEGATIVE Negative CBC Auto Diff 03/19/2017 [facility] White Blood 8.0 10^3/uL N 3.5-10.[address] [place] [address] [phone] Red Blood Count 4.74 10^6/uL N 4.0-5.4 [...] Cells % 0.1 Comp Metabolic Panel 03/19/2017 [facility] Sodium 137 mmol/L N 133-145 [address] [place] [address] [phone] Potassium 3.9 mmol/L N 3.5-5.0 Chloride 102 [...] Egfr Non- 73.9 >60 Egfr 95.1 >60 42 Urinalysis Profile 02/07/2017 [facility] Urine Color Yellow N [address] [place] [address] [phone] Urine Appearance Clear N Urine Specific [place] 1.018 N 1.010-1.030 Urine pH 7.0 N 5-9 Urine Urobilinogen Negative N Negative Urine Ketones Negative N Negative Urine Protein Negative N Negative Urine Leukocytes Negative N Negative Urine Blood Negative N Negative Urine Nitrite Negative N Negative Urine Bilirubin Negative N Negative Urine Glucose Negative N Negative Laboratory test 02/06/2017 [facility] Lactic Acid 3.0 mmol/L High 0.5-2.0 43 finding [address] [place] [address] [phone] B-Type Natriuretic Peptide BNP 22 pg/mL N 44 Comp Metabolic Panel 02/06/2017 [facility] Sodium 139 mmol/L N 133-145 [address] [place] [address] [phone] Potassium 4.4 mmol/L N 3.5-5.0 Chloride 104 [...] 72.3 N >60 Egfr 93.0 N >60 45 CKMB 02/06/2017 [facility] CKMB ng/mL 2.3 ng/mL N 0.6-6.[address] [place] [address] [phone] CBC Auto Diff 02/06/2017 [facility] White Blood 9.2 10^3/uL N 3.5-10.[address] [place] [address] [phone] Red Blood Count 5.11 10^6/uL N 4.0-5.4 [...] Cells % 0 N Laboratory test 02/06/2017 [facility] Magnesium 1.9 mg/dL N 1.9-2.[address] [place] [address] [phone] Lipase 32 U/L N 11.0-82.0 Creatine Kinase(CK) 113 U/L N 10-223 C Reactive Protein 2.26 mg/L N < 5.00 46 Troponin-I (TnI) 0.00 ng/mL N <0.04 Laboratory test 02/06/2017 [facility] Partial 33.6 seconds N 26.0-36.[address] [place] [address] PTT [phone] Laboratory test 02/06/2017 [facility] TSH (Thyroid 1.70 mcIU/mL N 0.34-5.[address] Stim Horm) [place] [address] [phone] Inr/Protime 02/06/2017 [facility] Inr 0.94 N 0.89-1.[address] [place] [address] [phone] Comp Metabolic 10/12/2016 [facility] Sodium 137 mmol/L N 133- [address] [place] [address] [phone] Potassium 4.5 mmol/L N 3.5-5.0 Chloride 101 [...] 77.6 N >60 Egfr 99.9 N >60 47 Lipid Profile 10/12/2016 [facility] Triglycerides 149 mg/dL N 48 (Trig/Chol/HDL) [address] [place] [address] [phone] Cholesterol 154 mg/dL N 49 HDL Cholesterol 38.9 mg/dL N 50 LDL Cholesterol 85 mg/dL N 51 CBC Auto Diff 10/12/2016 [facility] White Blood 6.7 10^3/uL N 3.5-10.[address] [place] [address] [phone] Red Blood Count 5.11 10^6/uL N 4.0-5.4 [...] % 0 N Lipid Panel - 10/12/2016 [facility] Creatine 170 U/L N 10-[address] Kinase(CK) [place] [address] [phone] Laboratory test 10/12/2016 [facility] TSH (Thyroid 4.00 N 0.34 -5.[address] Stim Horm) mcIU/[place] [address] [phone] Magnesium 2.0 mg/dL N 1.9-2.7 Laboratory 08/04/2016 [facility] Hepatitis B Nonreactive N Nonreactive test finding [address] [place] [address] [phone] Hepatitis B Core AB Igm MML Negative N Negative 52 Hepatitis B Dna Quantitative Detected IU/mL N Undetected 53 Comp Metabolic Panel 08/04/2016 [facility] Sodium 135 mmol/L N 133-[address] [place] [address] [phone] Potassium 4.4 mmol/L N 3.5-5.0 Chloride 103 [...] 73.4 N >60 Egfr 94.3 N >60 54 Laboratory test 08/04/2016 [facility] Magnesium 1.9 mg/dL N 1.9-2.[address] [place] [address] [phone] Lipid Profile 08/04/2016 [facility] Triglycerides 156 mg/dL N 55 (Trig/Chol/HDL) [address] [place] [address] [phone] Cholesterol 157 mg/dL N 56 HDL Cholesterol 35.1 mg/dL N 57 LDL Cholesterol 91 mg/dL N 58 Laboratory test 08/04/2016 [facility] Creatine 120 U/L N 10- [address] Kinase(CK) [place] [address] [phone] Laboratory test 07/21/2016 [facility] C Difficile PCR SEE RESULT [address] [place] [address] [phone] Stool Culture SEE RESULT BELOW 60 CBC Auto Diff 07/21/2016 [facility] White Blood 7.3 10^3/uL N 3.5-10.[address] [place] [address] [phone] Red Blood Count 5.13 10^6/uL N 4.0-5.4 [...] % 0 N Comp Metabolic Panel 07/21/2016 [facility] Sodium 136 mmol/L N 133-[address] [place] [address] [phone] Potassium 4.4 mmol/L N 3.5-5.0 Chloride 103 [...] 76.7 N >60 Egfr 98.7 N >60 61 Laboratory test finding 07/21/2016 [facility] Lipase 30 U/L N 11.0-82.0 [address] [place] [address] [phone] C Reactive Protein 1.79 mg/L N < 5.00 62 Lactic Acid 1.8 mmol/L N 0.5-2.0 63 Urinalysis Profile 07/21/2016 [facility] Urine Color Yellow N [address] [place] [address] [phone] Urine Appearance Clear N Urine Specific [place] 1.011 N 1.010-1.030 Urine pH 6.0 N 5-9 Urine Urobilinogen Negative N Negative Urine Ketones Negative N Negative Urine Protein Negative N Negative Urine Leukocytes Negative N Negative Urine Blood Negative N Negative Urine Nitrite Negative N Negative Urine Bilirubin Negative N Negative Urine Glucose Negative N Negative CBC Auto Diff 06/26/2016 [facility] White Blood 9.7 10^3/uL N 3.5-10.[address] Count [place] [address] [phone] Red Blood Count 5.08 10^6/uL N 4.0-5.4 [...] % 0.1 N Comp Metabolic Panel 06/26/2016 [facility] Sodium 137 mmol/L N 133-145 [address] [place] [address] [phone] Potassium 3.4 mmol/L Low 3.5-5.0 Chloride 102 [...] Egfr 93.3 N >60 64 Laboratory test 06/26/2016 [facility] Magnesium 1.8 mg/dL Low 1.9-2.[address] [place] [address] [phone] Troponin-I (TnI) 0.00 ng/mL N <0.04 65 Laboratory test 06/25/2016 [facility] Vitamin D 30.5 ng/mL N 30-[address] Total 25(Oh) [place] [address] [phone] Vitamin B12 And 06/25/2016 [facility] Vitamin B12 214 pg/mL N 180-914 66 Folate Serum [address] [place], [place] [phone] Folic Acid (Folate) 16.37 ng/mL N >3.99 Laboratory 06/25/2016 [facility] Hepatitis B Positive N Negative 67 test finding [address] [place] [place] [address] Total [phone] Laboratory 06/25/2016 [facility] Hepatitis B Nonreactive N Nonreactive test finding [address] [place] [address] [phone] Hepatitis B 06/25/2016 [facility] Hepatitis B Nonreactive N Nonreactive Janel AB Titer [address] [place] [place] [address] [phone] Hep B Surf AB Level 5.60 mIU/mL N <12 68 CBC Auto Diff 06/23/2016 [facility] White Blood 8.4 10^3/uL N 3.5-10.[address] [place] [address] [phone] Red Blood Count 5.26 10^6/uL N 4.0-5.4 [...] % 0.1 N Comp Metabolic Panel 06/23/2016 [facility] Sodium 136 mmol/L N 133-[address] [place] [address] [phone] Potassium 4.1 mmol/L N 3.5-5.0 Chloride 103 [...] 72.5 N >60 Egfr 93.3 N >60 69 Laboratory test 06/23/2016 [facility] Lipase 30 U/L N 11.0- 82.[address] [place] [address] [phone] Laboratory test 04/05/2016 [facility] TSH (Thyroid 3.97 N 0.34 -5.60 [address] Stim Horm) mcIU/[place] [address] [phone] Cortisol 9.49 ?g/dL N 71 PSA Screening 0.329 ng/mL N 0-4.000 72 CBC Auto Diff 04/05/2016 [facility] White Blood 5.6 10^3/uL N 3.5-10.[address] [place] [address] [phone] Red Blood Count 5.09 10^6/uL N 4.0-5.4 [...] % 0.1 N Lipid Panel - 04/05/2016 [facility] Creatine 115 U/L N 10-[address] Kinase(CK) [place] [address] [phone] Laboratory test 04/05/2016 [facility] Magnesium 1.9 N 1.9-2.7 [address] mg/[place] [address] [phone] Lipid Profile 04/05/2016 [facility] Triglycerides 189 N 75 (Trig/Chol/HDL) [address] mg/[place] [address] [phone] Cholesterol 187 mg/dL N 76 HDL Cholesterol 35.2 mg/dL N 77 LDL Cholesterol 114 mg/dL N 78 Comp Metabolic Panel 04/05/2016 [facility] Sodium 136 mmol/L N 133-[address] [place] [address] [phone] Potassium 4.7 mmol/L N 3.5-5.0 Chloride 102 [...] 68.8 N >60 Egfr 88.4 N >60 79 Lipid Panel - 11/14/2015 [facility] Creatine 200 U/L N 10-223 80, [address] Kinase(CK) [place] [address] [phone] Comp Metabolic 11/14/2015 [facility] Sodium 138 N 133-[address] mmol/[place] [address] [phone] Potassium 4.5 mmol/L N 3.5-5.0 Chloride 104 [...] 77.0 N >60 Egfr 99.1 N >60 82 Lipid Profile 11/14/2015 [facility] Triglycerides 100 mg/dL N 83 (Trig/Chol/HDL) [address] [place] [address] [phone] Cholesterol 149 mg/dL N 84 HDL Cholesterol 38.8 mg/dL N 85 LDL Cholesterol 90 mg/dL N 86 Lipid Panel - 09/26/2015 [facility] Creatine 257 U/L High 10- [address] Kinase(CK) [place] [address] [phone] Comp Metabolic 09/26/2015 [facility] Sodium 137 N 133-[address] mmol/[place] [address] [phone] Potassium 4.3 mmol/L N 3.5-5.0 Chloride 102 [...] 73.6 N >60 Egfr 94.7 N >60 87 Lipid Profile 09/26/2015 [facility] Triglycerides 109 mg/dL N 88 (Trig/Chol/HDL) [address] [place] [address] [phone] Cholesterol 138 mg/dL N 89 HDL Cholesterol 38.8 mg/dL N 90 LDL Cholesterol 77 mg/dL N 91 Comp Metabolic Panel 08/21/2015 [facility] Sodium 138 mmol/L N 133-[address] [place] [address] [phone] Potassium 4.5 mmol/L N 3.5-5.0 Chloride 102 [...] 72.0 N >60 Egfr 92.6 N >60 92 Lipid Profile 08/21/2015 [facility] Triglycerides 154 mg/dL N 93 (Trig/Chol/HDL) [address] [place] [address] [phone] Cholesterol 198 mg/dL N 94 HDL Cholesterol 36.9 mg/dL N 95 LDL Cholesterol 130 mg/dL N 96 CBC Auto Diff 08/21/2015 [facility] White Blood 7.0 10^3/uL N 3.5-10.[address] [place] [address] [phone] Red Blood Count 4.93 10^6/uL N 4.0-5.4 [...] Blood Cells % 0.1 N Laboratory test 08/21/2015 [facility] Magnesium 2.0 mg/dL N 1.9-2.7 [address] [place] [address] [phone] Lipid Panel - 08/21/2015 [facility] Creatine 149 U/L N 10-223 [address] Kinase(CK) [place] [address] [phone] Comp Metabolic 02/24/2015 [facility] Sodium 136 mmol/L N 133- [address] [place] [address] [phone] Potassium 4.2 mmol/L N 3.5-5.0 Chloride 101 [...] 73.6 N >60 Egfr 94.7 N >60 99 CBC Auto Diff 02/24/2015 [facility] White Blood 6.3 10^3/uL N 4.8-10.[address] [place] [address] [phone] Red Blood Count 4.98 10^6/uL N 4.0-5.4 [...] Cells % 0.1 N Laboratory test 02/24/2015 [facility] Magnesium 1.8 mg/dL Low 1.9-2.7 finding [address] [place] [address] [phone] Laboratory test 11/18/2014 [facility] Magnesium 1.8 mg/dL Low 1.9-2.7 100, 101 finding [address] [place] [address] [phone] Creatine Kinase(CK) 149 U/L N 10-223 102 Comp Metabolic Panel 11/18/2014 [facility] Sodium 138 mmol/L N 133-145 [address] [place] [address] [phone] Potassium 4.3 mmol/L N 3.5-5.0 Chloride 102 [...] 74.7 N >60 Egfr 96.1 N >60 103 Lipid Profile 11/18/2014 [facility] Triglycerides 130 mg/dL N 104 (Trig/Chol/HDL) [address] [place] [address] [phone] Cholesterol 126 mg/dL N 105 HDL Cholesterol 41.7 mg/dL N 106 LDL Cholesterol 58 mg/dL N 107 CBC Auto Diff 09/08/2013 [facility] White Blood 8.1 10^3/uL N 4.8-10.[address] [place] [address] [phone] Red Blood Count 4.65 10^6/uL N 4.0-5.4 [...] Blood Cells % 0 N Inr/Protime 09/08/2013 [facility] Inr 0.88 N 0.85-1.[address] [place] [address] [phone] Laboratory test 09/08/2013 [facility] Activated 34.0 N 24.0- 36.[address] [place] [address] Thrombo Time [phone] B Type Natriuretic Peptide 48 pg/mL N 108 Comp Metabolic Panel 09/08/2013 [facility] Sodium 138 mmol/L N 133-[address] [place] [address] [phone] Potassium 3.7 mmol/L N 3.7-5.6 Chloride 104 [...] 66.0 N >60 Egfr 84.9 N >60 109 Laboratory test 09/08/2013 [facility] Creatine 242 U/L High 10 -[address] [place] [address] [phone] CKMB 09/08/2013 [facility] CKMB ng/mL 3.2 N 0.6-6.[address] ng/[place] [address] [phone] Laboratory test 09/08/2013 [facility] Troponin I 0.00 N <0.03 [address] ng/[place] [address] [phone] T4 7.67 g/dL N 6.09-12.23 TSH (Thyroid Stimulating Horm) 3.97 IU/mL N 0.34-5.60 C Reactive Protein 2.16 mg/L N < 5.00 111 1 SEE RESULT BELOW Name: NARGIS GOMEZ : [address]: Lucio Rodgers MD Acct: [id number] Unit: [id number] AGE: 58 Location: ED Re07/19/18 SEX: M Status: DEP ER SPEC: [id number] LORAINE: 07/19/18 [facility] DR: Lucio Rodgers MD REQ: [id number] RECD: 07/19/18 STATUS: NAKITA VELASQUEZ DR: Akin Kang MD _ SOURCE: STOOL SPDESC: ORDERED: C. diff PCR, Stool Culture, Fecal Lactoferr Procedure Result Reported Site Stool Culture Final 07/21/18- 0932 ML Result No enteric pathogens isolated Testing [...] sensitivities are required. Stool Specimen Description Final 07/19/18- 2219 ML Stool Color Brown Yellow Stool Form Nonformed Stool Consistency Pasty Shiga Toxin 1 2 Final 07/21/18- 1128 ML Organism 1 Negative Shiga Toxin 1 2 Immunochromatographic Assay C. difficile PCR Final 07/19/18- 2314 ML Organism 1 027 Presumptive NEGATIVE Organism 2 Toxigenic C.diff NEGATIVE Fecal Lactoferrin (Stool WBC) Final 07/19/18- 2253 ML Fecal Lactoferrin Negative by Immunoassay CONTINUED ON NEXT PAGE DEPARTMENT OF PATHOLOGY, [address] [place] [address] Castro Conley M.D. Director [facility] # [id number] Patient: NARGIS GOMEZ [id number] (Continued) Specimen: [id number] Collected: 07/19/18 Received: 07/19/18 (Continued) Procedure Result Reported Site Fecal Lactoferrin (Stool WBC) Final (continued) 07/19/182252 TEST LIMITATIONS: Assay detects elevated levels of lactoferrin released from fecal leukocytes as a marker of intestinal inflammation. The test may not be appropriate in immunocompromised persons. Fecal samples from breast fed infants should not be used with this assay. * ML - Main Lab . END OF REPORT DEPARTMENT OF PATHOLOGY, [address] [place] [address] Casrto Conley M.D. Director [facility] # [id number] 2 *Ascorbic acid is present which may interfere with detection of blood. 3 SEE RESULT BELOW Name: NARGIS GOMEZ Tawana : [address]: Lucio Rodgers MD Acct: [id number] Unit: [id number] AGE: 58 Location: ED Re07/19/18 SEX: M Status: REG ER SPEC: [id number] LORAINE: 07/19/[address]: Lucio Rodgers MD REQ: [id number] RECD: 07/19/18 STATUS: NAKITA VELASQUEZ DR: Akin Kang MD _ SOURCE: STOOL SPDESC: ORDERED: Occult Bl, Diag Procedure Result Reported Site Stool Occult Blood (1) Final 07/19/18- 224 ML Stool Occult Blood Negative Collection Date (1) 07/19/18 * ML - Main Lab . END OF REPORT DEPARTMENT OF PATHOLOGY, [address] [place] [address] Castro Conley M.D. Director [facility] # [id number] 4 [facility] Severe Sepsis and Septic Shock Management Bundle Measure requires all lactic acids initially measuring >2.0 mmol/L be repeated. 5 Because ethnic data is not always readily [...] 15-29 5 Kidney failure <15 (or dialysis) 6 Mold Tooling Technician: [id number] 7 SEE RESULT BELOW Name: NARGIS GOMEZ : [address]: Mary Smith MD Acct: [id number] Unit: [id number] AGE: 58 Location: ED Re06/04/18 SEX: M Status: REG ER SPEC: [id number] LORAINE: 06/04/[address]: Mary Smith MD REQ: [id number] RECD: 06/04/18 STATUS: COMP OTHR DR: Akin Kang MD _ SOURCE: NASAL SPDESC: ORDERED: Flu A B Request Procedure Result Reported Site Rapid Influenza A B Request Final 06/04/182206 ML Specimen received for Influenza A/B Molecular testing * ML - Main Lab . END OF REPORT DEPARTMENT OF PATHOLOGY, [address] [place] [address] Castro Conley M.D. Director [facility] # [id number] 8 Because ethnic data is not always readily [...] 15-29 5 Kidney failure <15 (or dialysis) 9 Specimen Hemolyzed. Result may not be valid. Unable to report test result due to hemolysis. 10 Unable to report test result due to hemolysis. 11 [facility] Severe Sepsis and Septic Shock Management Bundle Measure requires all lactic acids initially measuring >2.0 mmol/L be repeated. 12 Mold Tooling Technician: [id number] 13 SEE RESULT BELOW Name: NARGIS GOMEZ : [address]: Lucio Rodgers MD Acct: [id number] Unit: [id number] AGE: 58 Location: ED Re02/19/18 SEX: M Status: REG ER SPEC: [id number] LORAINE: 02/19/18 [facility] DR: Benjamin KLEIN REQ: [id number] RECD: 02/19/18 STATUS: COMP EVA DR: Lucio Kang MD _ SOURCE: NASAL SPDESC: ORDERED: Flu A B Request Procedure Result Reported Site Rapid Influenza A B Request Final 02/19/18157 ML Specimen received for Influenza A/B Molecular testing * ML - Main Lab . END OF REPORT DEPARTMENT OF PATHOLOGY, [address] [place] [address] Castro Conley M.D. Director [facility] # [id number] 14 FASTING Copy Result to: HOLLIE VILLALOBOS ([id number]) 15 FASTING Copy Result to: HOLLIE VILLALOBOS ([id number]) 16 Because ethnic data is not always [...] 130-159 High: 160-189 Very High: >189 21 SEE RESULT BELOW Name: NARGIS GOMEZ : [address]: Yovani Guy MD Acct: [id number] Unit: [id number] AGE: 57 Location: [facility] Re01/01/18 SEX: M Status: REG REF SPEC: [id number] LORAINE: 01/01/18 [facility] [address]: Yovani Guy MD REQ: [id number] RECD: 01/02/18 STATUS: COMP _ SOURCE: STOOL [...] PATHOLOGY, [address], [place], [place] [address] Castro Conley M.D. Director [facility] # [id number] 22 SEE RESULT BELOW Name: RENATENARGIS : [address]: Shorty Quiroz MD Acct: [id number] Unit: [id number] AGE: 57 Location: ED Re11/16/17 SEX: M Status: DEP ER SPEC: [id number] LORAINE: 11/16/17-1040 [facility] DR: Jordy KLEIN REQ: [id number] RECD: 11/16/17 STATUS: NAKITA VELASQUEZ DR: Shorty Kang MD _ SOURCE: STOOL SPDESC: ORDERED: C. diff PCR COMMENTS: Verbal to [id number] by [id number] at 1146 on 11/16/17. Results read back accurately. Procedure Result Reported Site Stool Specimen Description Final 11/16/17- 1107 ML Stool Color Brown Stool Form Nonformed Stool Consistency Mucoid C. difficile PCR Final 11/16/17- 1146 ML Organism 1 027 Presumptive NEGATIVE Organism 2 Toxigenic C.diff POSITIVE * ML - Main Lab . END OF REPORT DEPARTMENT OF PATHOLOGY, [address] [place] [address] Castro Conley M.D. Director [facility] # [id number] 23 SEE RESULT BELOW Name: NARGIS GOMEZ : [address]: Mary Smith MD Acct: [id number] Unit: [id number] AGE: 57 Location: ED Re10/27/17 SEX: M Status: DEP ER SPEC: [id number] LORAINE: 10/27/[address]: Mray Smith MD REQ: [id number] RECD: 10/27/17 STATUS: NAKITA VELASQUEZ DR: Akin [...] . END OF REPORT DEPARTMENT OF PATHOLOGY, [address] [place] [address] Castro Conley M.D. Director [facility] # [id number] 24 [facility] Severe Sepsis and Septic Shock Management Bundle Measure requires all lactic acids initially measuring >2.0 mmol/L be repeated. 25 Because ethnic data is not always readily [...] 15-29 5 Kidney failure <15 (or dialysis) 26 SEE RESULT BELOW Name: NARGIS GOMEZ : [address]: Akin Kang MD Acct: [id number] Unit: [id number] AGE: 57 Location: [facility] Re10/10/17 SEX: M Status: REG REF SPEC: [id number] LORAINE: 10/10/[address]: Akin Kang MD REQ: [id number] RECD: 10/10/17 STATUS: COMP _ SOURCE: STOOL SPDESC: ORDERED: C. diff PCR Procedure Result Reported Site Stool Specimen Description Final 10/11/17- 1116 ML Stool Color Brown Stool Form Nonformed Stool Consistency Pasty Soft C. difficile PCR Final 10/11/17- 1200 ML Organism 1 027 Presumptive NEGATIVE Organism 2 Toxigenic C.diff POSITIVE * ML - Main Lab . END OF REPORT DEPARTMENT OF PATHOLOGY, [address] [place] [address] Castro Conley M.D. Director [facility] # [id number] 27 SEE RESULT BELOW Name: NARGIS GOMEZ : [address]: Yoni Villalobos MD Acct: [id number] Unit: [id number] AGE: 57 Location: LAB Re08/03/17 SEX: M Status: REG REF SPEC: [id number] LORAINE: 08/03/[address]: Darius Villalobos MD REQ: [id number] RECD: 08/03/17 STATUS: COMP _ SOURCE: STOOL SPDESC: ORDERED: C. diff PCR Procedure Result Reported Site Stool Specimen Description Final 08/03/17- 1835 ML Stool Color Light Brown Stool Form Nonformed Stool Consistency Mucoid C. difficile PCR Final 08/03/17- 1927 ML Organism 1 027 Presumptive NEGATIVE Organism 2 Toxigenic C.diff POSITIVE * ML - Main Lab . END OF REPORT DEPARTMENT OF PATHOLOGY, [address] [place] [address] Castro Conley M.D. Director [facility] # [id number] 28 FASTING in 2-3 weeks Copy Result to: AKIN KANG ([id number]) 29 Desirable: <150 Borderline High: 150-199 High: 200-499 Very High: >500 30 Desirable: <200 Borderline High: 200-239 High: >239 31 Low: <40 Desirable: 40-60 High: >60 32 Desirable: <100 Near Optimal: 100-129 Borderline High: 130-159 High: 160-189 Very High: >189 33 Because ethnic data is not always readily [...] 15-29 5 Kidney failure <15 (or dialysis) 34 FASTING in 2-3 weeks Copy Result to: AKIN KANG ([id number]) 35 FASTING in 2-3 weeks Copy Result to: AKIN KANG ([id number]) 36 Verbal to [id number] by [id number] at 1656 on 06/21/17. Results read back accurately. 37 SEE RESULT BELOW Name: NARGIS GOMEZ : [address]: Shorty Quiroz MD Acct: [id number] Unit: [id number] AGE: 57 Location: ED Re06/21/17 SEX: M Status: DEP ER SPEC: [id number] LORAINE: 06/21/17 [facility] [address]: Shorty Quiroz MD REQ: [id number] RECD: 06/21/17 STATUS: NAKITA VELASQUEZ DR: Akin Kang MD _ SOURCE: STOOL SPDESC: ORDERED: C. diff PCR COMMENTS: Verbal to [id number] by [id number] at 1656 on 06/21/17. Results read back accurately. Procedure Result Reported Site Stool Specimen Description Final 06/22/17- 0800 ML Stool Color Brown Stool Form Nonformed Stool Consistency Liquid C. difficile PCR Final 06/21/17- 1657 ML Organism 1 027 Presumptive NEGATIVE Organism 2 Toxigenic C.diff POSITIVE * ML - Main Lab . END OF REPORT DEPARTMENT OF PATHOLOGY, [address] [place] [address] Castro Conley M.D. Director [facility] # [id number] 38 Acute inflammation: >10.00 39 [facility] Severe Sepsis and Septic Shock Management Bundle Measure requires all lactic acids initially measuring >2.0 mmol/L be repeated. 40 Because ethnic data is not always [...] 5 Kidney failure <15 (or dialysis) 41 Mold Tooling Technician: [id number] 42 Because ethnic data is not always [...] 5 Kidney failure <15 (or dialysis) 43 Critical Result LACT:3.0 Called to OTONIEL at: 23:53:52 by:[id number] Read back by:OTONIEL [place] Severe Sepsis and Septic Shock Management Bundle Measure requires all lactic acids initially measuring >2.0 mmol/L be repeated. 44 >100 to <200 pg/mL: likely compensated congestive heart failure (CHF) 200 to 400 pg/mL: likely moderate CHF >400 pg/mL: likely moderate to severe CHF 45 Because ethnic data is not always readily [...] 15-29 5 Kidney failure <15 (or dialysis) 46 Acute inflammation: >10.00 47 Because ethnic data is not always [...] High: >189 mg/dL 52 Test Performed by: [place] [id number] 53 HBV DNA level is <20 IU/mL (<1.30 log IU/mL). This assay cannot accurately quantify HBV DNA below this level. Result in log IU/mL is <1.3 The quantification range of this assay is 20 IU/mL to 170,000,000 IU/mL (1.30 log IU/mL to 8.23 log IU/mL). Testing was performed by the [employer] AmpliPrep/TAVON TaqMan HBV test, version 2.0 ([employer] Test Performed by: [place] [id number] 54 Because ethnic data is not always readily [...] 15-29 5 Kidney failure <15 (or dialysis) 55 Desirable <150 Borderline high 150-199 High 200-499 Very High >500 56 Desirable <200 Borderline high 200-239 High >239 57 Low <40 Desirable: 40-60 High: >60 58 Desirable: <100 mg/dL Near Optimal: 100-129 mg/dL Borderline High: 130-159 mg/dL High: 160-189 mg/dL Very High: >189 mg/dL 59 SEE RESULT BELOW Name: NARGIS GOMEZ : [address]: Lucio Church MD Acct: [id number] Unit: [id number] AGE: 56 Location: ED Re07/21/16 SEX: M Status: DEP ER SPEC: [id number] LORAINE: 07/21/16-[address]: Lucio Church MD REQ: [id number] RECD: 07/21/16 STATUS: NAKITA VELASQUEZ DR: Akin [...] this assay. * ML - MAIN LAB ([facility]) . END OF REPORT * ML=Testing performed at Main Lab DEPARTMENT OF PATHOLOGY, [address] [place] [address] Castro Conley M.D. Director [facility] # [id number] 60 SEE RESULT BELOW Name: NARGIS GOMEZ : [address]: Lucio Church MD Acct: [id number] Unit: [id number] AGE: 56 Location: ED Re07/21/16 SEX: M Status: DEP ER SPEC: [id number] LORAINE: 07/21/16-1800 [facility] [address]: Lucio Church MD REQ: [id number] RECD: 07/21/16 STATUS: NAKITA VELASQUEZ DR: Akin Kang MD _ SOURCE: STOOL SPDESC: ORDERED: Stool Culture Procedure Result Reported Site [...] ON NEXT PAGE * ML=Testing performed at [facility] DEPARTMENT OF PATHOLOGY, [address] [place] [address] Castro Conley M.D. Director [facility] # [id number] Patient: NARGIS GOMEZ [id number] (Continued) Specimen: [id number] Collected: 07/21/16-1799 Received: 07/21/16-1834 (Continued) Procedure Result Reported Site Shiga Toxin 1 2 Final (continued) 07/22/16- 6 * ML - MAIN LAB ([facility]) . END OF REPORT * ML=Testing performed at Main Lab DEPARTMENT OF PATHOLOGY, [address] [place] [address] Castro Conley M.D. Director [facility] # [id number] 61 Because ethnic data is not always readily [...] 15-29 5 Kidney failure <15 (or dialysis) 62 Acute inflammation: >10.00 63 [facility] Severe Sepsis and Septic Shock Management Bundle Measure requires all lactic acids initially measuring >2.0 mmol/L be repeated. 64 Because ethnic data is not always [...] 5 Kidney failure <15 (or dialysis) 65 99th percentile=0.04 ng/mL Troponin results at [facility] and [facility] are not interchangeable. 66 Normal Range 180 to 914 Indeterminate Range 145 to 180 Deficient Range <145 67 If clinically indicated, testing for Hepatitis B Core IgM antibody is necessary to differentiate between acute and past HBV infection. Test Performed by: [place] [address] Service Agent: Sterling Razo II, M.D., Ph.D. 68 This assay does not differentiate between reactivity due to a vaccine-induced immune response or an immune response induced by infection with HBV. 69 Because ethnic data is not always [...] 5 Kidney failure <15 (or dialysis) 70 FASTING 10 HOUR 71 AM 8.7-22.4 PM <10 72 Serum levels of PSA measured using the [employer] DXI Hybritech immunoassay should not be interpreted [...] methods or kits cannot be used interchangeably. 73 FASTING within 2 m CC:PMD Copy Result to: AKIN KANG ([id number]) 74 FASTING within 2 m CC:PMD Copy Result to: AKIN KANG ([id number]) 75 Desirable <150 Borderline high 150-199 High 200-499 Very High >500 76 Desirable <200 Borderline high 200-239 High >239 77 Low <40 Desirable: 40-60 High: >60 78 Desirable: <100 mg/dL Near Optimal: 100-129 mg/dL Borderline High: 130-159 mg/dL High: 160-189 mg/dL Very High: >189 mg/dL 79 Because ethnic data is not always readily [...] 15-29 5 Kidney failure <15 (or dialysis) 80 FASTING 81 FASTING 82 Because ethnic data is not always readily [...] 15-29 5 Kidney failure <15 (or dialysis) 83 Desirable <150 Borderline high 150-199 High 200-499 Very High >500 84 Desirable <200 Borderline high 200-239 High >239 85 Low <40 Desirable: 40-60 High: >60 86 Desirable: <100 mg/dL Near Optimal: 100-129 mg/dL Borderline High: 130-159 mg/dL High: 160-189 mg/dL Very High: >189 mg/dL 87 Because ethnic data is not always readily [...] 15-29 5 Kidney failure <15 (or dialysis) 88 Desirable <150 Borderline high 150-199 High 200-499 Very High >500 89 Desirable <200 Borderline high 200-239 High >239 90 Low <40 Desirable: 40-60 High: >60 91 Desirable: <100 mg/dL Near Optimal: 100-129 mg/dL Borderline High: 130-159 mg/dL High: 160-189 mg/dL Very High: >189 mg/dL 92 Because ethnic data is not always readily [...] 15-29 5 Kidney failure <15 (or dialysis) 93 Desirable <150 Borderline high 150-199 High 200-499 Very High >500 94 Desirable <200 Borderline high 200-239 High >239 95 Low <40 Desirable: 40-60 High: >60 96 Desirable: <100 mg/dL Near Optimal: 100-129 mg/dL Borderline High: 130-159 mg/dL High: 160-189 mg/dL Very High: >189 mg/dL 97 PT IS FASTING 98 PT IS FASTING 99 Because ethnic data is not always readily [...] 15-29 5 Kidney failure <15 (or dialysis) 10 PT IS FASTING 0 10 PT IS FASTING 1 10 PT IS FASTING 2 10 Because ethnic data is not always readily available, 3 this report includes an eGFR for both [...] 15-29 5 Kidney failure <15 (or dialysis) 10 Desirable <150 4 Borderline high 150-199 High 200-499 Very High >500 10 Desirable <200 5 Borderline high 200-239 High >239 10 Low <40 6 Desirable: 40-60 High: >60 10 Desirable: <100 mg/dL 7 Near Optimal: 100-129 mg/dL Borderline High: 130-159 mg/dL High: 160-189 mg/dL Very High: >189 mg/dL 10 >100 to <200 pg/mL: likely compensated congestive heart 8 failure (CHF) 200 to 400 pg/mL: likely moderate CHF >400 pg/mL: likely moderate to severe CHF [place] [facility] 10 Because ethnic data is not always readily available, 9 this report includes an eGFR for both [...] 5 Kidney failure <15 (or dialysis) 11 Reference Range and Interpretation: 0 TnI (ng/mL) Interpretation Less Than 0.03 ng/mL Not supportive of diagnosis of NM 0.03 - 0.50 ng/mL Indeterminate: suggest serial studies if clinically indicated. Greater than 0.5 ng/mL Consistent with diagnosis of NM 11 Acute inflammation: >10.00 1 Procedures Date Code Description Status 01/31/2018 19084 EKG Tracing & Interpretation Completed 06/08/2017 52301 EKG Tracing & Interpretation Completed 05/24/2017 [id number] Diabetic Retinal Eye Exam Completed 01/06/2017 46441 Holter Monitor Review (24 hr)dr review & interp only Completed 01/03/2017 48870 ECG Monitor/Recording W/Visual Superimposition Completed Scanning 11/05/2016 50013 EKG Tracing & Interpretation Completed 10/29/2016 67237 ECHO Transthoracic, Real-Time 2D With Doppler And Completed Color Flow 10/12/2016 55787 EKG Tracing & Interpretation Completed 05/27/2016 79071 EKG Tracing & Interpretation Completed 04/20/2016 28307 ECHO Transthorasic Realtime 2D W Doppler & Color Flow Completed Hosp 04/20/2016 26935 EKG, Interpretation Only Completed 03/03/2016 33088 EKG Tracing & Interpretation Completed 07/30/2015 89147 EKG Tracing & Interpretation Completed 03/12/2015 11638 EKG Tracing & Interpretation Completed 12/09/2014 10959 Holter Monitor Review (24 hr)dr review & interp only Completed 12/09/2014 89878 ECG Monitor/Recording W/Visual Superimposition Completed Scanning 12/05/2014 39310 Holter Monitor Review (24 hr)dr review & interp only Completed 12/05/2014 31609 ECG Monitor/Recording W/Visual Superimposition Completed Scanning 11/01/2014 14021 Treadmill Interp/Report Only Completed 11/01/2014 57848 Stress Test Supervsn W/Out I/R Completed 10/08/2014 74417 ECHO Transthoracic, Real-Time 2D With Doppler And Completed Color Flow 09/11/2014 33080 EKG Tracing & Interpretation Completed 04/09/2013 56230 Treadmill Interp/Report Only Completed 04/09/2013 90918 Stress Test Supervsn W/Out I/R Completed 04/09/2013 42881 EKG, Interpretation Only Completed 03/18/2008 37292 Treadmill Interp/Report Only Completed 03/18/2008 14479 Stress Test Supervsn W/Out I/R Completed 03/18/2008 77201 Stress Test Supervsn W/Out I/R Completed 03/15/2008 96036 Color Doppler Completed 03/15/2008 12575 Color Doppler Completed 03/15/2008 91612 Pulse Doppler & Continuous Wave Completed 03/15/2008 89777 Echocardiogram Completed 03/15/2008 35737 Echocardiogram Completed 03/13/2008 13520 Holter Monitor Interpretation Completed Encounters Type Date Location Provider Dx Diagnosis Office Visit 06/14/2018 [facility] Félix Marcus, VERONIKA M54.32 Sciatica, left 1:20p Medicine side B37.2 Candidiasis of skin and nail R09.81 Nasal congestion Office Visit 01/31/2018 3:30p [facility] Jayshree SJoni I10 Essential ( primary) Of [facility] Marcos N.P. hypertension I49.5 Sick sinus syndrome G47.30 Sleep apnea, unspecified I44.1 Atrioventricular block, second degree E66.9 Obesity, unspecified Z68.43 Body mass index (BMI) 50-59.9, adult Office Visit 01/04/2018 [facility] Yovani Solis A04.71 Enterocolitis due 10:50a For Anita Guy M.D. to Clostridium Diseases difficile, recurrent Office Visit 10/25/2017 [facility] Yovani Solis A04.71 Enterocolitis due 11:30a For Anita Guy M.D. to Clostridium Diseases difficile, recurrent Office Visit 10/18/2017 [place] Jayshree Rodríguez, I10 Essential (primary) 3:30p Cardiology Of N.P. hypertension [facility] E78.5 Hyperlipidemia, unspecified I49.5 Sick sinus syndrome E66.01 Morbid (severe) obesity due to excess calories Office Visit 08/03/2017 [facility] Internal Darius Solis A04.71 Enterocolitis due 4:00p Medicine - Savita Villalobos M.D.,FACP to [address] difficile, recurrent Office Visit 07/29/2017 [place] Jayshree Rodríguez, I10 Essential (primary) 1:30p Cardiology Of N.P. hypertension [facility] E78.5 Hyperlipidemia, unspecified E66.01 Morbid (severe) obesity due to excess calories I49.5 Sick sinus syndrome Office Visit 07/01/2017 3:00p [facility] Jayshree S. I10 Essential ( primary) Of [facility] Arnie Rodríguez hypertension E78.5 Hyperlipidemia, unspecified E66.01 Morbid (severe) obesity due to excess calories I49.5 Sick sinus syndrome I48.0 Paroxysmal atrial fibrillation Z68.43 Body mass index (BMI) 50-59.9 , adult Office Visit 06/24/2017 3:00p [facility] Darius Solis A04.72 Enterocolitis d/t Vee Villalobos M.D.,FACP Clostridium [address] difficile, not spcf as recur Z12.11 Encounter for screening for malignant neoplasm of colon Office Visit 06/08/2017 3:40p [facility] Rob Yan I10 Essential (primary) Balbir Dozier hypertension E78.5 Hyperlipidemia, unspecified E66.01 Morbid (severe) obesity due to excess calories I49.5 Sick sinus syndrome I48.0 Paroxysmal atrial fibrillation I42.9 Cardiomyopathy, unspecified G47.30 Sleep apnea, unspecified Office Visit 05/26/2017 2:45p [facility] Brien Carreon, R51 Headache Services Of Conchita Mcgregor Z86.73 Prsnl hx of TIA (TIA), and cereb infrc w/o resid deficits 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 feet [address] H53.30 Unspecified disorder of binocular vision J32.9 Chronic sinusitis, unspecified I10 Essential (primary) hypertension E03.9 Hypothyroidism, unspecified Office Visit 03/22/2017 10:00a [facility] Ladonna Gerardo R26.81 Unsteadiness on Vee Kang M.D. feet [address] H53.30 Unspecified disorder of binocular vision J01.90 Acute sinusitis, unspecified Office Visit 03/15/2017 Orth[facility] Epifanio F M25.532 Pain in left wrist 1:00p Services Of MD Guero C.M.A. Office Visit 02/08/2017 [place] LATOYA Hung I48.0 Paroxysmal atrial 3:30p Cardiology fibrillation R00.1 Bradycardia, unspecified I42.9 Cardiomyopathy, unspecified G45.9 Transient cerebral ischemic attack, unspecified G47.33 Obstructive sleep apnea (adult) (pediatric) Office Visit 01/21/2017 [place] Brien Carreon, I48.0 Paroxysmal atrial 2:45p Neurologic M.D. fibrillation Services Of [facility] R51 Headache Z86.73 Prsnl hx of TIA (TIA), and cereb infrc w/o resid deficits Office Visit 12/02/2016 [place] Brien Carreon, G45.9 Transient 1:00p Neurologic M.D. cerebral ischemic Services Of [facility] attack, unspecified G43.B0 Ophthalmoplegic migraine, not intractable I48.0 Paroxysmal atrial fibrillation H53.8 Other visual disturbances Office Visit 11/05/2016 1:00p Huy Mane, I42.9 Cardiomyopathy, Cardiology Of [place] unspecified [facility] R53.83 Other fatigue G47.33 Obstructive sleep apnea (adult) (pediatric) E66.9 Obesity, unspecified I10 Essential (primary) hypertension Office Visit 10/12/2016 [place] Rob Yan R94.31 Abnormal 1:20p Cardiology Balbir Dozier electrocardiogram [ECG] [EKG] R53.83 Other fatigue G47.33 Obstructive sleep apnea (adult) (pediatric) I42.9 Cardiomyopathy, unspecified R00.1 Bradycardia, unspecified E03.9 Hypothyroidism, unspecified Office Visit 07/13/2016 [facility] Internal Akin M16.9 Osteoarthritis of 1:20p Vee Kang M.D. hip, unspecified [address] B18.1 Chronic viral hepatitis B without delta-agent Office Visit 06/25/2016 11:40a [facility] Internal Akin Kang, M25.551 Pain in Medicine - [place] M.D. right hip Rd R19.7 Diarrhea, unspecified E55.9 Vitamin D deficiency, unspecified B35.1 Tinea unguium D51.9 Vitamin B12 deficiency anemia, unspecified B18.1 Chronic viral hepatitis B without delta-agent B37.9 Candidiasis, unspecified Office Visit 05/27/2016 1:00p [place] Dev Mane, I10 Essential (primary) [place] hypertension E78.2 Mixed hyperlipidemia H53.8 Other visual disturbances E66.01 Morbid (severe) obesity due to excess calories Office Visit 04/30/2016 [facility] Akin R73.9 Hyperglycemia, 1:00p Vee Kang M.D. unspecified [address] G43.109 Migraine with aura, not intractable, w/o status migrainosus E66.01 Morbid (severe) obesity due to excess calories I10 Essential (primary) hypertension R53.83 Other fatigue E55.9 Vitamin D deficiency, unspecified E78.2 Mixed hyperlipidemia Office Visit 04/21/2016 7:09a [facility] Torrie Vaughn, H53.9 Unspecified Assoc,pc N.P. visual Hospitalists disturbance G45.9 Transient cerebral ischemic attack, unspecified I10 Essential (primary) hypertension E66.9 Obesity, unspecified Office Visit 04/20/2016 Neurohospitalist Benjamin H53.8 Other visual 1:30p Clinic MD Justo disturbances R42 Dizziness and giddiness I10 Essential (primary) hypertension E78.5 Hyperlipidemia, unspecified Office 04/19/2016 [facility] Mike H53.9 Unspecified Visit 7:07a Assoc,pc LATOYA Mohr visual Hospitalists disturbance G45.9 Transient cerebral ischemic attack, unspecified E66.9 Obesity, unspecified I10 Essential (primary) hypertension Office Visit 03/19/2016 2:00p [facility] Akin Kang I10 Essential (primary) Medicine Balbir hypertension E78.5 Hyperlipidemia, unspecified K21.9 Gastro-esophageal reflux [...] colon G47.09 Other insomnia Office Visit 03/03/2016 [place] Rob Yan E78.5 Hyperlipidemia, 1:30p Cardiology Balbir Dozier unspecified I10 Essential (primary) hypertension I48.0 Paroxysmal atrial fibrillation E66.01 Morbid (severe) obesity due to excess calories Office Visit 10/13/2015 10:20a [facility] Internal Hudson Hernandez.1 Myalgia Medicine Balbir Philip Office Visit 09/30/2015 1:00p [facility] LATOYA Hung E78.5 Hyperlipidemia, unspecified I10 Essential (primary) hypertension I48.0 Paroxysmal atrial fibrillation E66.01 Morbid (severe) obesity due to excess calories M79.1 Myalgia Office Visit 08/29/2015 10:30a Huy Mane E78.5 Hyperlipidemia, Cardiology Of [place] unspecified Sap Administrator I10 Essential (primary) hypertension I48.0 Paroxysmal atrial fibrillation E66.01 Morbid (severe) obesity due to excess calories M79.1 Myalgia G47.33 Obstructive sleep apnea (adult) (pediatric) R53.83 Other fatigue Z68.43 Body mass index (BMI) 50-59.9 , adult Office Visit 07/30/2015 [place] Rob Yan E78.5 Hyperlipidemia, 1:00p Cardiology Balbir Dozier unspecified I10 Essential (primary) hypertension I48.0 Paroxysmal atrial fibrillation E66.01 Morbid (severe) obesity due to excess calories Office Visit 05/26/2015 1:30p Joe Mane E78.5 Hyperlipidemia, Cardiology [place] unspecified I10 Essential (primary) hypertension I48.0 Paroxysmal atrial fibrillation E66.01 Morbid (severe) obesity due to excess calories I87.2 Venous insufficiency (chronic) (peripheral) Office Visit 03/31/2015 1:30p Huy Mane E78.5 Hyperlipidemia, Cardiology Of [place] unspecified Sap Administrator I10 Essential (primary) hypertension I48.0 Paroxysmal atrial fibrillation E66.01 Morbid (severe) obesity due to excess calories I87.2 Venous insufficiency (chronic) (peripheral) Office Visit 03/12/2015 10:00a [facility] Rob Yan R00.2 Palpitations Balbir Dozier I10 Essential (primary) hypertension E66.01 Morbid (severe) obesity due to excess calories I87.2 Venous insufficiency (chronic) (peripheral) Office Visit 11/29/2014 9:15a [facility] Lena Mane, 401.9 Hypertension Unspec Of Sap Administrator [place] 785.1 Palpitations 427.31 Atrial Fibrillation 427.69 Premature Beats Other 278.01 Obesity Morbid Office Visit 11/01/2014 3:37p [facility] Rob Yan 786.50 Pain Chest Mauser, M.D. Unspec 401.9 Hypertension Unspec 785.1 Palpitations 780.79 Malaise And Fatigue Other Office Visit 09/11/2014 11:45a [facility] Rob Yan 427.69 Premature Beats Of [facility] Balbir Dozier Other 278.01 Obesity Morbid 401.9 Hypertension Unspec 785.1 Palpitations 794.31 Electrocardiogram (ECG) (EKG) Abnormal Office Visit 07/31/2014 Pulmonology And Tabitha Lopez, 327.23 Obstructive 1:15p Sleep Services Of NITISH RN, WELL SERVICE PUMP EQUIPMENT OPERATOR- Sleep Apnea [facility] Adult & Pediatric Office Visit 04/10/2013 [facility] Haleylea Castro, 786.50 Pain Chest 10:40a rach Ferrara M.D. Unspec Hospitalists Office Visit 04/09/2013 [facility] Ortiz Aj 786.50 Pain Chest 10:39a rach Ferrara II, M.D. Unspec Hospitalists Office Visit 03/18/2008 [facility] Rob Yan 427.69 Premature Beats 1:00p Balbir Dozier Other 401.0 Hypertension Malignant 794.31 Electrocardiogram (ECG) (EKG) Abnormal 278.01 Obesity Morbid Plan of Treatment Future Appointment(s):10/18/2018 1:15 pm - Epifanio Jack MD at [facility]..11/21/2018 7:30 am - Gretchen Hargrove MD at [facility]09/21/2018 - Epifanio Jack, MDM54.32 Sciatica, left sideNew Therapy:Physical TherapyFollow up:Follow up: 4 kbprbQ71.562 Pain in left knee
[2018-09-22 04:12] LABS: Activated Partial Thrombo Time 35.1 seconds (26.0-38.0); INR 0.97 (0.82-1.09)
[2018-09-22 04:20] LABS: Albumin 4.5 g/dL (3.2-5.2); Albumin/Globulin Ratio 1.7 (1-3); BUN/Creatinine Ratio 14.8 (8-20); Calcium 9.7 mg/dL (8.6-10.3); EGFR African American 84.4 (>60); EGFR Non-African American 69.7 (>60); Globulin 2.7 g/dL (2-4); Magnesium 1.9 mg/dL (1.9-2.7); Total Bilirubin 0.6 mg/dL (0.2-1.0); Total Protein 7.2 g/dL (6.4-8.9)
[2018-09-22 05:16] LABS: Potassium 4.4 mmol/L (3.5-5.0)
[2018-09-22] MEDS ORDERED: NS 0.9% 1000 ML** 1,000 ML IV ONE (05:41)
[2018-09-22] MEDS ORDERED: LORazepam INJ* 2 MG/ML 1 ML VIAL IV PUSH ONE (05:41)
[2018-09-22] MEDS ORDERED: Lorazepam PYXIS KEY PRN (05:41)
[2018-09-22] MEDS ORDERED: Lorazepam PYXIS KEY ONE (05:46)
[2018-09-22] MEDS ORDERED: Enoxaparin(*) 40 MG/0.4 ML SYR SUBCUT SCH (06:00)
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
[2018-09-22] MEDS: Levothyroxine TAB* 100 MCG TAB PO SCH (07:25)
[2018-09-22] MEDS ORDERED: Sertraline* 100 MG TAB PO SCH (09:00)
[2018-09-22] MEDS ORDERED: CMCS Epleronone (NF) 25 MG TAB PO SCH (09:00)
[2018-09-22] MEDS: Aspirin EC TAB* 81 MG TAB.EC PO SCH (09:04)
[2018-09-22] MEDS: amLODIPine TAB* 5 MG PO SCH ×2 (09:04→19:59)
[2018-09-22] MEDS: Magnesium Oxide TAB* 400 MG PO SCH ×2 (09:05→20:00)
[2018-09-22] MEDS: RIBOFLAVIN 400 MG PO SCH (09:37)
[2018-09-22 11:01] LABS: Troponin I 0.06 ng/mL (<0.04)
[2018-09-22 13:53] LABS: Troponin I 0.11 ng/mL (<0.04)
--- NOTE | 2018-09-22 15:54 | PN ---
Hospitalist Progress Note Date of Service: 09/22/18
--- NOTE | 2018-09-22 15:58 | PN ---
Hospitalist Progress Note Date of Service: 09/22/18 I have seen and examined Mr. Gomez. He is feeling very upset and worried. He is tearful. His chest pressure has not returned. His troponins have risen so I have canceled his stress test. Repeat EKG shows 1st degree av block and twi inferiorly but no other st or t wave changes. I am consulting Dr. Dozier.
[2018-09-22 17:26] LABS: Troponin I 0.12 ng/mL (<0.04)
[2018-09-22] MEDS ORDERED: Diazepam TAB(*) 5 MG PO PRN (17:44)
[2018-09-22] MEDS ORDERED: Atorvastatin* 10 MG TAB PO SCH (18:00)
[2018-09-22] MEDS: Heparin DRIP 25,000 UNITS(*) 25,000 UNITS/500 ML BAG IV SCH (18:21)
[2018-09-22] MEDS: Heparin VIAL(*) 5000 UNITS/ML VIAL (FIVE THOUSAND) IV PRN (18:22)
[2018-09-22] MEDS: Atorvastatin* 40 MG TAB PO SCH (18:27)
[2018-09-22 19:02] LABS: ABS Basophils 0.1 10^3/ul (0-0.2); ABS Lymphocytes 1.2 10^3/ul (1.0-4.8); ABS Monocytes 0.7 10^3/ul (0-0.8); ABS Neutrophils 13.2 10^3/ul (1.5-7.7); Hematocrit 43 % (42-52); Mean Corpuscular HGB Conc 33 g/dL (31-36); Mean Corpuscular Hemoglobin 29 pg (27-31); Mean Corpuscular Volume 89 fL (80-94); Mean Platelet Volume 6.8 fL (7.4-10.4); Platelet Count 217 10^3/uL (150-450); Red Blood Count 4.79 10^6 /uL (4.18-5.48); Red Cell Distribution Width 14 % (10.5-15); White Blood Count 15.2 10^3/uL (3.5-10.8)
[2018-09-22 19:18] LABS: Blood Urea Nitrogen 15 mg/dL (6-24); C Reactive Protein < 1.00 mg/L (<8.01); EGFR African American 99.1 (>60); EGFR Non-African American 81.9 (>60)
[2018-09-22] MEDS: Nitroglycerin 0.2 MG/HR PATCH* (5 MG) TRANSDERM SCH (19:22)
[2018-09-22] MEDS ORDERED: predniSONE TAB* 50 MG PO ONE (20:00)
[2018-09-22] MEDS: CMCS Epleronone (NF) 25 MG TAB PO SCH (20:01)
[2018-09-22] MEDS: Metoprolol Tartrate TAB* 25 MG PO SCH (20:01)
[2018-09-22 20:09] LABS: Erythrocyte Sed Rate 5 mm/Hr (0-19)
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
[2018-09-22] MEDS: Sertraline* 100 MG TAB PO SCH (22:54)
[2018-09-23] MEDS: Nitro Patch/OINT Remove PATCH OFF SCH ×2 (00:01→20:56)
[2018-09-23] MEDS: Heparin VIAL(*) 5000 UNITS/ML VIAL (FIVE THOUSAND) IV PRN ×2 (01:50→13:57)
[2018-09-23] MEDS ORDERED: predniSONE TAB* 50 MG PO ONE ×2 (02:00→08:00)
[2018-09-23] MEDS: Levothyroxine TAB* 100 MCG TAB PO SCH (05:45)
[2018-09-23 06:38] LABS: ABS Lymphocytes 1.3 10^3/ul (1.0-4.8); ABS Monocytes 0.4 10^3/ul (0-0.8); Hematocrit 43 % (42-52); Hemoglobin 14.3 g/dL (14.0-18.0); Lymphocyte % 9.3 %; Mean Corpuscular HGB Conc 33 g/dL (31-36); Mean Corpuscular Hemoglobin 30 pg (27-31); Mean Corpuscular Volume 89 fL (80-94); Mean Platelet Volume 7.1 fL (7.4-10.4); Platelet Count 212 10^3/uL (150-450); Red Blood Count 4.86 10^6 /uL (4.18-5.48); Red Cell Distribution Width 14 % (10.5-15); White Blood Count 13.7 10^3/uL (3.5-10.8)
[2018-09-23 06:57] LABS: Troponin I 0.13 ng/mL (<0.04)
[2018-09-23] MEDS ORDERED: diPHENhydraMINE PO* 50 MG PO ONE (08:00)
[2018-09-23] MEDS: Nitroglycerin 0.2 MG/HR PATCH* (5 MG) TRANSDERM SCH (08:43)
[2018-09-23] MEDS: amLODIPine TAB* 5 MG PO SCH ×2 (08:44→20:41)
[2018-09-23] MEDS ORDERED: Iohexol 350* (CONTRAST) 500 ML MDV IV ONE (08:44)
[2018-09-23] MEDS: Aspirin EC TAB* 81 MG TAB.EC PO SCH (08:44)
[2018-09-23] MEDS: Magnesium Oxide TAB* 400 MG PO SCH ×2 (08:44→20:40)
[2018-09-23] MEDS: Metoprolol Tartrate TAB* 25 MG PO SCH ×2 (08:45→20:42)
[2018-09-23] MEDS: RIBOFLAVIN 400 MG PO SCH (08:45)
[2018-09-23] MEDS ORDERED: Furosemide IV* 10 MG/ML 2 ML VIAL (20 MG) IV ONE (13:34)
[2018-09-23] MEDS: Heparin DRIP 25,000 UNITS(*) 25,000 UNITS/500 ML BAG IV SCH (13:58)
[2018-09-23] MEDS: Atorvastatin* 40 MG TAB PO SCH (17:33)
[2018-09-23] MEDS ORDERED: Famotidine TAB* 20 MG PO ONE (17:55)
--- NOTE | 2018-09-23 18:05 | PN ---
Subjective Date of Service: 09/23/18 Interval History: No cp,sob this am.Worried about his clinical status Objective Active Medications: Amlodipine Besylate (Norvasc Tab*) 2.5 mg PO BID [facility] Last Admin: 09/23/18 08:44 Dose: 2.5 mg Aspirin (Aspirin Ec Tab*) 81 mg PO DAILY WITH MEAL [facility] Last Admin: 09/23/18 08:44 Dose: 81 mg Atorvastatin Calcium (Lipitor*) 40 mg PO QPM [facility]; Protocol Last Admin: 09/23/18 17:33 Dose: 40 mg Diazepam (Valium Tab(*)) 2.5 mg PO Q8H PRN PRN Reason: ANXIETY Eplerenone (Inspra (Nf)) 50 mg PO BEDTIME [facility] Last Admin: 09/22/18 20:01 Dose: 50 mg Famotidine (Pepcid Tab*) 20 mg PO ONCE ONE Stop: 09/23/18 17:56 Heparin Sodium (Porcine) (Heparin Vial(*)) 0 units IV .PRN PRN PRN Reason: HEPARIN DRIP BOLUS PROTOCOL Last Admin: 09/23/18 13:57 Dose: 2,000 units Heparin Sodium/Dextrose (Heparin Drip 25,000 Units(*)) 25,000 units in 500 mls @ 0 mls/hr IV PER RATE [facility]; Protocol Last Admin: 09/23/18 13:58 Dose: 34 mls/hr Levothyroxine Sodium (Synthroid Tab*) 200 mcg PO DAILY@0600 [facility] Last Admin: 09/23/18 05:45 Dose: 200 mcg Magnesium Oxide (Magox 400 Tab*) 400 mg PO BID [facility] Last Admin: 09/23/18 08:44 Dose: 400 mg Metoprolol Tartrate (Lopressor Tab*) 12.5 mg PO Q12HR [facility] Last Admin: 09/23/18 08:45 Dose: 12.5 mg Nitroglycerin (Nitroglycerin 5 Mg Patch*) 1 patch TRANSDERM DAILY@0900 [facility] Last Admin: 09/23/18 08:43 Dose: 1 patch Riboflavin (Vitamin B2) [Riboflavin] 400 Mg 400 mg PO DAILY WITH MEAL [facility] Last Admin: 09/23/18 08:45 Dose: Not Given Pharmacy Profile Note (Nitro Patch/Oint Remove*) 1 note PATCH OFF 2100 [facility] Last Admin: 09/23/18 00:01 Dose: 1 note Sertraline HCl (Zoloft*) 100 mg PO BEDTIME [facility] Last Admin: 09/22/18 22:54 Dose: 100 mg Oxygen Devices in Use Now: None Eyes: No Scleral Icterus Ears/Nose/Mouth/Throat: NL Teeth, Lips, Gums Neck: NL Appearance and Movements; NL JVP Respiratory: Symmetrical Chest Expansion and Respiratory Effort, Clear to Auscultation Cardiovascular: RRR Abdominal: NL Sounds; No Tenderness; No Distention Extremities: - - 1+ Edema Neurological: Alert and Oriented x 3 Result Diagrams: 09/23/18 06:07 09/22/18 18:54 Additional Lab and Data: Laboratory Tests 09/22/18 09/22/18 09/22/18 03:53 03:53 03:53 INR (Anticoag Therapy) 0.97 APTT 35.1 Glucose 243 H Lactic Acid 3.9 H* AST 26 ALT 36 Troponin I 0.00 B-Natriuretic Peptide Albumin 4.5 TSH 1.00 09/22/18 03:53 INR (Anticoag Therapy) APTT Glucose Lactic Acid AST ALT Troponin I B-Natriuretic Peptide 33 Albumin TSH Diagnostic Imaging: CXR: negative EKG Data: sinus tachycardia, normal axis, T-wave inversion in I, aVL, V4-V6 Assess/Plan/Problems-Billing Assessment: 58 year old with hypertension, hyperlipidemia, presenting with atypical chest pain - Patient Problems (1) Chest pain Current Visit: Yes Status: Acute Code(s): R07.9 - CHEST PAIN, UNSPECIFIED SNOMED Code(s): 74105130 Comment: Elevated tropinins Possible ACS Cardiology following Possible stress test versus cath based on clinical progress CTA today to r/o PE On heparin drip and medical management Myocarditis is also possible with symptoms lactic acid elevation and troponin (2) Hyperglycemia, drug-induced Current Visit: Yes Status: Acute Priority: Medium Code(s): R73.9 - HYPERGLYCEMIA, UNSPECIFIED; T50.905A - ADVERSE EFFECT OF UNSP DRUG/MEDS/BIOL SUBST, INIT SNOMED Code(s): 014001977 Comment: -Likely has high blood sugar due to steroid injection -Will check a1c to rule out diabetes (3) Hypertension Current Visit: No Status: Acute Priority: High Code(s): I10 - ESSENTIAL ( PRIMARY) HYPERTENSION SNOMED Code(s): 80092614 Comment: - BP appears reasonably controlled - Will continue epleronone and amlodipine. (4) Sleep apnea Current Visit: No Status: Acute Code(s): G47.30 - SLEEP APNEA, UNSPECIFIED SNOMED Code(s): 10674402 Comment: - Will use BiPAP while sleeping, uses at home regularly.
[2018-09-23] MEDS: CMCS Epleronone (NF) 25 MG TAB PO SCH (20:40)
[2018-09-23] MEDS: Sertraline* 100 MG TAB PO SCH (20:41)
[2018-09-24] MEDS: Diazepam TAB(*) 5 MG PO PRN ×2 (00:35→16:02)
[2018-09-24] MEDS: Levothyroxine TAB* 100 MCG TAB PO SCH (05:00)
[2018-09-24] MEDS: Heparin DRIP 25,000 UNITS(*) 25,000 UNITS/500 ML BAG IV SCH (05:04)
[2018-09-24 06:10] LABS: ABS Basophils 0.1 10^3/ul (0-0.2); ABS Lymphocytes 2.8 10^3/ul (1.0-4.8); ABS Neutrophils 8.7 10^3/ul (1.5-7.7); Eosinophil % 0.1 %; Hematocrit 44 % (42-52); Hemoglobin 14.7 g/dL (14.0-18.0); Lymphocyte % 22.4 %; Mean Corpuscular HGB Conc 34 g/dL (31-36); Mean Corpuscular Hemoglobin 30 pg (27-31); Mean Corpuscular Volume 88 fL (80-94); Mean Platelet Volume 6.8 fL (7.4-10.4); Nucleated Red Blood Cells % 0.1; Platelet Count 199 10^3/uL (150-450); Red Blood Count 4.93 10^6 /uL (4.18-5.48); Red Cell Distribution Width 14 % (10.5-15); White Blood Count 12.6 10^3/uL (3.5-10.8)
[2018-09-24 06:17] LABS: Anion Gap 11 mmol/L (2-11); BUN/Creatinine Ratio 22.2 (8-20); Blood Urea Nitrogen 22 mg/dL (6-24); C Reactive Protein < 1.00 mg/L (<8.01); CO2 Carbon Dioxide 25 mmol/L (22-32); Calcium 9.2 mg/dL (8.6-10.3); Chloride 103 mmol/L (101-111); EGFR African American 93.3 (>60); EGFR Non-African American 77.1 (>60); Glucose 112 mg/dL (70-100); Potassium 3.7 mmol/L (3.5-5.0); Sodium 139 mmol/L (135-145)
[2018-09-24 06:25] LABS: Troponin I 0.11 ng/mL (<0.04)
[2018-09-24] MEDS: RIBOFLAVIN 400 MG PO SCH (07:58)
[2018-09-24 09:12] LABS: Urine Appearance Clear; Urine Bacteria 1+ (Absent); Urine Bilirubin Negative (Negative); Urine Blood 1+ (Negative); Urine Color Yellow; Urine Glucose Negative (Negative); Urine Ketones Negative (Negative); Urine Nitrite Negative (Negative); Urine Protein Negative (Negative); Urine Red Blood Cell Trace(0-2/hpf) (Absent); Urine Specific Gravity 1.011 (1.010-1.030); Urine Urobilinogen Negative (Negative); Urine White Blood Cell Absent (Absent)
[2018-09-24] MEDS: Metoprolol Tartrate TAB* 25 MG PO SCH ×2 (09:25→21:18)
[2018-09-24] MEDS: Aspirin EC TAB* 81 MG TAB.EC PO SCH (09:30)
[2018-09-24] MEDS: Magnesium Oxide TAB* 400 MG PO SCH ×2 (09:30→21:12)
[2018-09-24] MEDS: amLODIPine TAB* 5 MG PO SCH ×2 (09:30→21:10)
[2018-09-24] MEDS: Nitroglycerin 0.2 MG/HR PATCH* (5 MG) TRANSDERM SCH (09:30)
[2018-09-24] MEDS ORDERED: Perflutren Lipid Microsphere* 3 ML VIAL ONE (10:34)
[2018-09-24] MEDS: Sertraline* 50 MG TAB PO SCH (11:18)
--- NOTE | 2018-09-24 13:53 | ECHO ---
*[facility]* [place] [address] Fax #: [phone] Transthoracic Echocardiogram Patient: Jason Height: 71 in / Ted Gilliam 180.3 cm : 1960 Weight: 379.2 lb / Study Date: 09/24/2018 172.4 kg Age: 58 BP: 141 / 64 Gender: M BMI/BSA: 53 kg/m^2 / HR: 51 bpm 2.77 m^2 *Clock Assembler: * Flor Bocanegra [facility] *Referring Physician: * Rob Dozier MD *Reading Physician: * Rob Dozier MD Indications: Chest Pain, unspecified. Murmur. Conclusions Summary: 1. Left ventricle: There is mild to moderate concentric hypertrophy. Systolic function is mildly reduced. The estimated ejection fraction is 40-45%. 2. Regional wall motion abnormality: Mild hypokinesis of the apical anterior, mid anteroseptal, basal inferior, mid anterolateral, and apical myocardium. Mild relative hypokinesis of the mid to distal anterior anterolateral segements and possibly the proximal inferior segment. 3. Right ventricle: The cavity size is moderately dilated. Wall thickness is mildly increased. Systolic function is mildly reduced. 4. Ventricular septum: There is septal flattening of the interventricular septum consistent with RV volume or pressure overload. 5. Mitral valve: There is mild regurgitation. 6. Ascending aorta: The ascending aorta is mildly dilated. Study data: Transthoracic echocardiogram. Procedure: Transthoracic echocardiography was performed. Image quality was poor. The study was technically limited due to body habitus. Intravenous Definity , 3 mlswas administered. Complete 2D, spectral Doppler, and color flow Doppler. Location: Bedside. Patient status: Inpatient. Patient room number: 452. Rhythm: Bradycardia. Findings Left ventricle: The cavity size is normal. There is mild to moderate concentric hypertrophy. Systolic function is mildly reduced. The estimated ejection fraction is 40-45%. Closer to 45%. Regional wall motion abnormalities: Mild hypokinesis of the apical anterior, mid anteroseptal, basal inferior, mid anterolateral, and apical myocardium. Mild relative hypokinesis of the mid to distal anterior anterolateral segements and possibly the proximal inferior segment. Doppler parameters are consistent with abnormal left ventricular relaxation (grade 1 diastolic dysfunction). Right ventricle: The cavity size is moderately dilated. Wall thickness is mildly increased. Systolic function is mildly reduced. Ventricular septum: There is septal flattening of the interventricular septum consistent with RV volume or pressure overload. Left atrium: The atrium is mildly dilated. Right atrium: The atrium is mildly dilated. Mitral valve: The leaflets are mildly thickened. There is no evidence of stenosis. There is mild regurgitation. Aortic valve: Not well visualized. The valve is trileaflet. The leaflets are mildly thickened. There is no evidence of stenosis. There is trace regurgitation. Tricuspid valve: The leaflets are normal thickness. There is no evidence of stenosis. There is physiologic regurgitation. Pulmonic valve: Not well visualized. There is no evidence of stenosis. Aorta: Ascending aorta: The ascending aorta is mildly dilated. Aortic arch: The aortic arch is appears normal. The aortic root is not dilated. Pericardium: A prominent pericardial fat pad is present. There is no pericardial effusion. Pulmonary arteries: Not well visualized. Systemic veins: Not well visualized. Inferior vena cava: The vessel is dilated. The respirophasic diameter changes are in the normal range (>= 50%). Measurements Left ventricle Value Ref Right atrium continued Value Ref NIDA, LAX (L) 4.1 cm 4.2 - 5.8 ML dim, ES, A4C 3.9 cm 2.6 - 4.4 ESD, LAX 3.2 cm 2.5 - 4.0 SI dim, ES, A4C (H) 5.5 cm 3.4 - 5.3 FS, LAX (L) 24 % Estimated RAP 8 mm Hg --------- PW, ED, LAX (H) 1.3 cm 0.6 - 1.0 FS (L) 24 % Aortic valve Value Ref PW, ED (H) 1.3 cm 0.6 - 1.0 Aarti diam, ED 2.1 cm --------- E', lat aarti, TDI 10.8 cm/sec >=10.0 Peak v, S 1.29 m/sec -- ------- E/e', lat aarti, 6 VTI, S 29.4 cm ----- ---- TDI Mean grad, S 3.0 mm Hg --------- E', med aarti, TDI (L) 5.9 cm/sec >=7.0 Peak grad, S 7.0 mm Hg -- ------- E/e', med aarti, 11 LVOT/AV, VTI ratio 0.85 ----- ---- TDI E', avg, TDI 8.4 cm/sec Mitral valve Value Ref E/e', avg, TDI 8 <=14 Peak E 0.67 m/sec -- ------- Peak A 0.6 m/sec --------- LVOT Value Ref Decel time 366 ms --------- Peak faith, S 1.16 m/sec Peak E/A ratio 1.1 --------- VTI, S 25.0 cm Peak grad, S 5 mm Hg Pulmonic valve Value Ref Mean grad, S 2 mm Hg Peak v, S 1.15 m/sec --------- Peak grad, S 5.0 mm Hg --------- Ventricular septum Value Ref IVS, ED (H) 1.4 cm 0.6 - 1.0 Aortic root Value Ref Root diam 3.5 cm <4.7 Right ventricle Value Ref AW thickness, ED (H) 0.6 cm 0.1 - 0.5 Ascending aorta Value Ref NIDA, LAX 3.3 cm AAo AP diam, S 3.8 cm --------- NIDA minor ax, (H) 5.4 cm 1.9 - 3.5 A4C mid Aortic arch Value Ref Arch diam 3.3 cm --------- Left atrium Value Ref AP dim, ES (H) 4.50 cm 3.00 - Decending aorta Value Ref 4.00 Hoa peak faith 0.53 m/sec --------- ML dim, A4C 4.9 cm SI dim, A4C 5.9 cm Inferior vena cava Value Ref Vol/bsa, ES, 1-p 29 ml/m^2 12 - 37 Diam 2.8 cm --------- A4C Vol/bsa, ES, A/L 31 ml/m^2 16 - 34 Right atrium Value Ref SI dim, ES (H) 5.5 cm 3.4 - 5.3 Legend: (L) and (H) joya values outside specified reference range. Prepared and electronically signed by Rob Dozier MD 09/24/2018 13:53
--- NOTE | 2018-09-24 15:22 | PN ---
Subjective Date of Service: 09/24/18 Interval History: breathing improved.reports muscle weakness before.no cp,palpatations Objective Active Medications: Amlodipine Besylate (Norvasc Tab*) 2.5 mg PO BID [facility] Last Admin: 09/24/18 09:30 Dose: 2.5 mg Aspirin (Aspirin Ec Tab*) 81 mg PO DAILY WITH MEAL [facility] Last Admin: 09/24/18 09:30 Dose: 81 mg Atorvastatin Calcium (Lipitor*) 40 mg PO QPM [facility]; Protocol Last Admin: 09/23/18 17:33 Dose: 40 mg Diazepam (Valium Tab(*)) 2.5 mg PO Q8H PRN PRN Reason: ANXIETY Last Admin: 09/24/18 00:35 Dose: 2.5 mg Eplerenone (Inspra (Nf)) 50 mg PO BEDTIME [facility] Last Admin: 09/23/18 20:40 Dose: 50 mg Heparin Sodium (Porcine) (Heparin Vial(*)) 0 units IV .PRN PRN PRN Reason: HEPARIN DRIP BOLUS PROTOCOL Last Admin: 09/23/18 13:57 Dose: 2,000 units Heparin Sodium/Dextrose (Heparin Drip 25,000 Units(*)) 25,000 units in 500 mls @ 0 mls/hr IV PER RATE [facility]; Protocol Last Admin: 09/24/18 05:04 Dose: 34 mls/hr Levothyroxine Sodium (Synthroid Tab*) 200 mcg PO DAILY@0600 [facility] Last Admin: 09/24/18 05:00 Dose: 200 mcg Magnesium Oxide (Magox 400 Tab*) 400 mg PO BID [facility] Last Admin: 09/24/18 09:30 Dose: 400 mg Metoprolol Tartrate (Lopressor Tab*) 12.5 mg PO Q12HR [facility] Last Admin: 09/24/18 09:25 Dose: Not Given Nitroglycerin (Nitroglycerin 5 Mg Patch*) 1 patch TRANSDERM DAILY@0900 [facility] Last Admin: 09/24/18 09:30 Dose: 1 patch Riboflavin (Vitamin B2) [Riboflavin] 400 Mg 400 mg PO DAILY WITH MEAL [facility] Last Admin: 09/24/18 07:58 Dose: Not Given Pharmacy Profile Note (Nitro Patch/Oint Remove*) 1 note PATCH OFF 2100 [facility] Last Admin: 09/23/18 20:56 Dose: 1 note Sertraline HCl (Zoloft*) 100 mg PO BEDTIME [facility] Last Admin: 09/23/18 20:41 Dose: 100 mg Sertraline HCl (Zoloft*) 50 mg PO DAILY [facility] Last Admin: 09/24/18 11:18 Dose: 50 mg Vital Signs - 8 hr 09/24/18 09/24/18 09/24/18 07:36 08:00 11:35 Temperature 97.9 F 98.0 F Pulse Rate 50 51 Respiratory 20 20 20 Rate Blood Pressure 129/64 125/60 (mmHg) O2 Sat by Pulse 98 98 Oximetry Oxygen Devices in Use Now: None Eyes: No Scleral Icterus Ears/Nose/Mouth/Throat: NL Teeth, Lips, Gums Neck: NL Appearance and Movements; NL JVP Respiratory: Symmetrical Chest Expansion and Respiratory Effort, Clear to Auscultation Cardiovascular: NL Sounds; No Murmurs; No JVD Extremities: - - Edema present Neurological: Alert and Oriented x 3 Result Diagrams: 09/24/18 05:44 09/24/18 05:44 Additional Lab and Data: Laboratory Tests 09/22/18 09/22/18 09/22/18 03:53 03:53 03:53 INR (Anticoag Therapy) 0.97 APTT 35.1 Glucose 243 H Lactic Acid 3.9 H* AST 26 ALT 36 Troponin I 0.00 B-Natriuretic Peptide Albumin 4.5 TSH 1.00 09/22/18 03:53 INR (Anticoag Therapy) APTT Glucose Lactic Acid AST ALT Troponin I B-Natriuretic Peptide 33 Albumin TSH Diagnostic Imaging: CXR: negative EKG Data: sinus tachycardia, normal axis, T-wave inversion in I, aVL, V4-V6 Assess/Plan/Problems-Billing Assessment: 58 year old with hypertension, hyperlipidemia, presenting with atypical chest pain - Patient Problems (1) Chest pain Current Visit: Yes Status: Acute Code(s): R07.9 - CHEST PAIN, UNSPECIFIED SNOMED Code(s): 12366872 Comment: Elevated tropinins Possible ACS versus myocarditis Cardiology following CTA no PE On heparin drip and medical management Myocarditis is also possible with symptoms lactic acid elevation,cpk and troponin Wall motion abn on Echo Possible Cath per d/w Dr Dozier (2) Hyperglycemia, drug-induced Current Visit: Yes Status: Acute Priority: Medium Code(s): R73.9 - HYPERGLYCEMIA, UNSPECIFIED; T50.905A - ADVERSE EFFECT OF UNSP DRUG/MEDS/BIOL SUBST, INIT SNOMED Code(s): 942392443 Comment: -Likely has high blood sugar due to steroid injection -Will check a1c to rule out diabetes (3) Hypertension Current Visit: No Status: Acute Priority: High Code(s): I10 - ESSENTIAL ( PRIMARY) HYPERTENSION SNOMED Code(s): 28899248 Comment: - BP appears reasonably controlled - Will continue epleronone and amlodipine. (4) Sleep apnea Current Visit: No Status: Acute Code(s): G47.30 - SLEEP APNEA, UNSPECIFIED SNOMED Code(s): 20115992 Comment: - Will use BiPAP while sleeping, uses at home regularly. (5) Myositis Current Visit: Yes Status: Acute Code(s): M60.9 - MYOSITIS, UNSPECIFIED SNOMED Code(s): 15444399 Comment: CPK mildly elevated On further discussion pt reports ongoing proximal muscle weakness on mag supplementation for hypomg will check a myositis panel and robel (6) Hypomagnesemia Current Visit: Yes Status: Acute Code(s): E83.42 - HYPOMAGNESEMIA SNOMED Code(s): 534029704 Comment: Replaced and continue po mg if diarrhea, can switch to sustained release mg, slow mg
[2018-09-24] MEDS: Atorvastatin* 40 MG TAB PO SCH (16:02)
[2018-09-24] MEDS ORDERED: Potassium Chloride* LIQUID 20 MEQ/15 ML UDC PO ONE (16:13)
[2018-09-24] MEDS ORDERED: predniSONE TAB* 50 MG PO ONE ×2 (18:59)
[2018-09-24] MEDS ORDERED: predniSONE TAB* 20 MG PO SCH (20:00)
[2018-09-24] MEDS ORDERED: diPHENhydraMINE PO* 25 MG PO SCH (20:00)
[2018-09-24 20:45] LABS: AST 30 U/L (13-39); Creatine Kinase 214 U/L (10-223)
[2018-09-24] MEDS: CMCS Epleronone (NF) 25 MG TAB PO SCH (21:11)
[2018-09-24] MEDS: Sertraline* 100 MG TAB PO SCH (21:13)
[2018-09-24] MEDS: Nitro Patch/OINT Remove PATCH OFF SCH (21:13)
[2018-09-25] MEDS: Diazepam TAB(*) 5 MG PO PRN ×2 (00:51→07:52)
[2018-09-25 04:31] LABS: ABS Basophils 0.1 10^3/ul (0-0.2); ABS Lymphocytes 1.7 10^3/ul (1.0-4.8); ABS Monocytes 0.8 10^3/ul (0-0.8); ABS Neutrophils 8.7 10^3/ul (1.5-7.7); Hematocrit 48 % (42-52); Hemoglobin 15.8 g/dL (14.0-18.0); Lymphocyte % 14.7 %; Mean Corpuscular HGB Conc 33 g/dL (31-36); Mean Corpuscular Hemoglobin 29 pg (27-31); Mean Corpuscular Volume 88 fL (80-94); Mean Platelet Volume 6.8 fL (7.4-10.4); Nucleated Red Blood Cells % 0.1; Platelet Count 227 10^3/uL (150-450); Red Blood Count 5.41 10^6 /uL (4.18-5.48); Red Cell Distribution Width 14 % (10.5-15); White Blood Count 11.2 10^3/uL (3.5-10.8)
[2018-09-25 04:47] LABS: Calcium 9.5 mg/dL (8.6-10.3); EGFR African American 92.2 (>60); EGFR Non-African American 76.2 (>60); Magnesium 2.3 mg/dL (1.9-2.7); Potassium 4.5 mmol/L (3.5-5.0)
[2018-09-25] MEDS ORDERED: NS 0.9% 1000 ML** 1,000 ML IV SCH ×2 (06:00→09:15)
[2018-09-25] MEDS: Levothyroxine TAB* 100 MCG TAB PO SCH (06:25)
[2018-09-25] MEDS ORDERED: diPHENhydraMINE PO* 25 MG PO ONE (07:00)
[2018-09-25] MEDS ORDERED: predniSONE TAB* 50 MG PO ONE (07:00)
[2018-09-25] MEDS ORDERED: predniSONE TAB* 10 MG PO ONE (07:00)
[2018-09-25] MEDS: Aspirin EC TAB* 81 MG TAB.EC PO SCH (07:29)
[2018-09-25] MEDS: Magnesium Oxide TAB* 400 MG PO SCH ×2 (07:34→22:11)
[2018-09-25] MEDS: RIBOFLAVIN 400 MG PO SCH (07:53)
[2018-09-25] MEDS ORDERED: Lidocaine 1% INJ* 10 MG/ML 30 ML SDV ONE (08:05)
[2018-09-25] MEDS ORDERED: Heparin 2 UNITS/ML IVPREMIX* 3,000 UNIT/1,500 ML BAG IV ONE (08:05)
[2018-09-25] MEDS ORDERED: Iohexol 350 (CONTRAST) 200 ML MDV IV ONE ×2 (08:05→08:47)
[2018-09-25] MEDS ORDERED: Midazolam* 1 MG/ML 5 ML VIAL (5 MG) ONE (08:18)
[2018-09-25] MEDS ORDERED: Heparin(*) 1000 UNIT/ML 10 ML VIAL CATH LAB IV ONE (08:18)
[2018-09-25] MEDS ORDERED: fentaNYL* 50 MCG/ML 2 ML VIAL (100 MCG VIAL) ONE (08:18)
[2018-09-25] MEDS ORDERED: VERAPAMIL 2.5 MG/ML 2 ML VIAL ** 5 mg/2 ml ONE (08:19)
[2018-09-25] MEDS ORDERED: nitroGLYCERIN DRIP* 25,000 MCG/250 ML BTL ONE (08:19)
[2018-09-25] MEDS ORDERED: Diazepam INJ (NF) 5 MG/ML 10 ML VIAL (50 MG TOTAL) IV ONE (09:00)
[2018-09-25] MEDS: Nitroglycerin 0.2 MG/HR PATCH* (5 MG) TRANSDERM SCH (09:05)
[2018-09-25] MEDS: Metoprolol Tartrate TAB* 25 MG PO SCH ×3 (09:05→22:25)
[2018-09-25] MEDS: Sertraline* 50 MG TAB PO SCH ×2 (09:05→11:12)
[2018-09-25] MEDS: amLODIPine TAB* 5 MG PO SCH ×3 (09:05→22:08)
--- NOTE | 2018-09-25 13:57 | CATH ---
CC: Dr. Rob Dozier * CARDIAC CATHETERIZATION REPORT: DATE OF PROCEDURE: 09/25/18 - ROOM #452 INDICATIONS FOR PROCEDURE: The patient with abnormal cardiac enzymes and decrease in left ventricular systolic function with chest discomfort, rule out the presence of significant coronary artery disease. PROCEDURE: Coronary arteriography, left heart catheterization. CONSENT: The patient was interviewed and examined on the floor of the hospital , where the risks and benefits were explained. He understood them and wished to proceed. APPROACH UTILIZED: The right radial artery was assessed by ultrasound and found to be acceptable and as such this was the approach utilized. PRE-CARDIAC CATHETERIZATION LABORATORY RESULTS: Hemoglobin and hematocrit of 15.8 and 48 with a platelet count of 227,000. BUN and creatinine of 21 and 1.0. Sodium 136, potassium 4.5, chloride 105, bicarb 25. Troponin was 0.11. INR was 0.97. EQUIPMENT UTILIZED: 1. The right radial artery sheath was a 6-Vietnamese Glidesheath slender. 2. Diagnostic coronary catheters - a 5-Vietnamese TIG 4 catheter and a 5-Vietnamese FL 3.5 curve catheter. 3. The diagnostic guidewire was a 260 length Garza curved guidewire. 4. The closure device utilized was a long Vasc Band by [employer]. MEDICATIONS GIVEN DURING THE PROCEDURE: 1. Radial artery cocktail including 2000 units of heparin (the patient was already on a heparin drip at the time of the catheterization), 300 mcg of nitroglycerin, and 3 mg of verapamil. 2. The patient received 1 mg of Valium and lidocaine locally. DESCRIPTION OF PROCEDURE: The patient was brought to the cardiovascular laboratory where a formal time-out was performed. He was prepped and draped in sterile fashion and under ultrasound guidance, the right radial artery cannulated and sheath was placed. Coronary arteriography was then performed utilizing the TIG catheter as well as the Becky 3.5 FL catheter. Of note, the TIG catheter did advance into the left ventricle and as such the left ventricular pressure was recorded and pullback was obtained. At the end of the case, the catheter and sheath were removed and hemostasis was obtained with a Vasc Band. The reverse Barbeau was a B. The total contrast used was 90 cc of Omnipaque dye. The radiation exposure included 8.1 minutes of fluoro time. The air kerma radiation was 1485 mGy. The DAP radiation was 9247 microgray per meter squared. RESULTS: HEMODYNAMIC DATA: Central aortic pressure recorded at 130/84 with a mean of 106. Left ventricular pressure 130 over left ventricular end-diastolic pressure of 16 to 18. CORONARY ARTERIOGRAPHY: A. Right coronary artery - a dominant vessel supplying the PDA and two posterior left ventricular branches. There was no significant disease throughout the course of this vessel. B. Left coronary artery: 1. Left main - widely patent. 2. Left anterior descending artery. The left anterior descending artery supplied several somewhat smaller caliber diagonal branches and traversed to the apical region and slightly onto the distal inferior wall. There was no significant narrowing seen throughout the course of the left anterior descending artery. There was a mild 30% mid narrowing within the left anterior descending artery. 3. Circumflex artery - a nondominant vessel supplying a thin first and second obtuse marginal branch with a large bifurcating third obtuse marginal branch was extended across the low posterolateral to apical region. There was minimal luminal irregularity seen in the mid portion of the circumflex. OVERALL ASSESSMENT: No significant stenotic coronary artery disease noted. This information was shared with the hospitalist involved in the case and with Dr. Rob Dozier, who will address the issue of the patient's change in LV function and consider other nonischemic causes for this. [id number]/[facility] #: [id number] [facility]ITALKalpana
--- NOTE | 2018-09-25 17:16 | PN ---
Subjective Date of Service: 09/25/18 Interval History: Mr. Gomez is feeling better today. Denies any CP or palpitations. The cardiac cath was stressful for him but he is relieved to not have any critical lesions. Denies SOB, N/V, dizziness, diaphoresis. He has been under a lot of stress recently as he has been working much more than usual. He has always had problems with anxiety, but does not recall any significant periods of anxiety over the last week. No concerns from nursing. Tele: NSR in the 60s. Family History: Unchanged from Admission Social History: Unchanged from Admission Past Medical History: Unchanged from Admission Objective Active Medications: Amlodipine Besylate (Norvasc Tab*) 2.5 mg PO 0900,2100 [facility] Aspirin (Aspirin Ec Tab*) 81 mg PO DAILY WITH MEAL TD Atorvastatin Calcium (Lipitor*) 40 mg PO QPM TD; Protocol Diazepam (Valium Tab(*)) 2.5 mg PO Q8H PRN ANXIETY Eplerenone (Inspra (Nf)) 50 mg PO BEDTIME TD Levothyroxine Sodium (Synthroid Tab*) 200 mcg PO DAILY@0600 TD Magnesium Oxide (Magox 400 Tab*) 400 mg PO BID TD Metoprolol Succinate (Toprol Xl Tab*) 12.5 mg PO DAILY TD Metoprolol Tartrate (Lopressor Tab*) 12.5 mg PO 0900,2100 TD Sertraline HCl (Zoloft*) 100 mg PO BEDTIME TD Sertraline HCl (Zoloft*) 50 mg PO 0900 [facility] Vital Signs - 8 hr 09/25/18 09/25/18 09/25/18 09:22 09:27 09:30 Temperature Pulse Rate 56 55 55 Respiratory 15 19 16 Rate Blood Pressure 161/88 126/76 (mmHg) O2 Sat by Pulse 96 94 96 Oximetry 09/25/18 09/25/18 09/25/18 09:32 09:37 09:42 Temperature Pulse Rate 55 57 55 Respiratory 18 14 15 Rate Blood Pressure 150/88 151/86 139/82 (mmHg) O2 Sat by Pulse 97 96 97 Oximetry 09/25/18 09/25/18 09/25/18 09:45 09:49 09:52 Temperature Pulse Rate 54 56 Respiratory 26 26 14 Rate Blood Pressure 160/87 (mmHg) O2 Sat by Pulse 96 97 Oximetry 06/07/1109/25/18 09/25/18 09:57 10:00 10:03 Temperature Pulse Rate 56 55 54 Respiratory 19 17 11 Rate Blood Pressure 144/87 138/78 (mmHg) O2 Sat by Pulse 97 96 96 Oximetry 09/25/18 09/25/18 09/25/18 10:08 10:13 10:15 Temperature Pulse Rate 58 54 63 Respiratory 14 15 22 Rate Blood Pressure 136/71 164/71 (mmHg) O2 Sat by Pulse 96 96 96 Oximetry 09/25/18 09/25/18 09/25/18 10:18 10:40 10:52 Temperature 97.6 F Pulse Rate 54 55 57 Respiratory 12 17 Rate Blood Pressure 145/80 129/77 (mmHg) O2 Sat by Pulse 95 95 98 Oximetry 09/25/18 09/25/18 09/25/18 10:54 11:00 11:10 Temperature Pulse Rate 63 Respiratory 18 Rate Blood Pressure 169/78 (mmHg) O2 Sat by Pulse 96 Oximetry 09/25/18 09/25/18 09/25/18 11:15 11:30 11:45 Temperature Pulse Rate 59 59 61 Respiratory Rate Blood Pressure (mmHg) O2 Sat by Pulse 98 97 95 Oximetry 09/25/18 09/25/18 09/25/18 11:47 12:00 12:01 Temperature Pulse Rate 64 60 61 Respiratory Rate Blood Pressure 144/63 125/64 (mmHg) O2 Sat by Pulse 96 96 97 Oximetry 09/25/18 09/25/18 09/25/18 12:15 12:30 12:32 Temperature Pulse Rate 60 60 66 Respiratory Rate Blood Pressure 119/101 (mmHg) O2 Sat by Pulse 95 97 95 Oximetry 09/25/18 09/25/18 09/25/18 12:45 12:59 13:01 Temperature Pulse Rate 63 65 62 Respiratory Rate Blood Pressure 117/70 (mmHg) O2 Sat by Pulse 97 96 97 Oximetry 09/25/18 09/25/18 09/25/18 13:02 13:15 13:30 Temperature Pulse Rate 64 66 Respiratory Rate Blood Pressure 129/65 (mmHg) O2 Sat by Pulse 96 96 Oximetry 09/25/18 09/25/18 09/25/18 13:31 13:45 14:00 Temperature Pulse Rate 63 66 66 Respiratory Rate Blood Pressure 142/62 (mmHg) O2 Sat by Pulse 96 96 96 Oximetry 09/25/18 09/25/18 09/25/18 14:01 14:15 14:30 Temperature Pulse Rate 60 60 Respiratory Rate Blood Pressure 143/62 (mmHg) O2 Sat by Pulse 96 94 Oximetry 09/25/18 09/25/18 09/25/18 14:32 14:45 15:00 Temperature Pulse Rate 59 57 57 Respiratory Rate Blood Pressure 126/55 (mmHg) O2 Sat by Pulse 96 94 94 Oximetry 09/25/18 09/25/18 09/25/18 15:01 15:15 15:30 Temperature 98.2 F Pulse Rate 58 64 60 Respiratory 16 Rate Blood Pressure 130/59 (mmHg) O2 Sat by Pulse 94 96 93 Oximetry 09/25/18 09/25/18 09/25/18 15:31 15:35 15:45 Temperature Pulse Rate 58 62 58 Respiratory Rate Blood Pressure 131/75 130/75 (mmHg) O2 Sat by Pulse 93 94 95 Oximetry 09/25/18 09/25/18 16:00 16:15 Temperature Pulse Rate 52 68 Respiratory Rate Blood Pressure (mmHg) O2 Sat by Pulse 93 92 Oximetry Oxygen Devices in Use Now: None Appearance: Middle-aged male laying in bed in NAD Eyes: No Scleral Icterus Ears/Nose/Mouth/Throat: Mucous Membranes Moist Neck: NL Appearance and Movements; NL JVP, Trachea Midline Respiratory: Symmetrical Chest Expansion and Respiratory Effort, Clear to Auscultation Cardiovascular: NL Sounds; No Murmurs; No JVD, RRR Abdominal: NL Sounds; No Tenderness; No Distention Extremities: No Edema Skin: No Rash or Ulcers Neurological: Alert and Oriented x 3 Lines/Tubes/Other Access: Clean, Dry and Intact Peripheral IV Nutrition: Taking PO's Result Diagrams: 09/25/18 04:18 09/25/18 04:18 Assess/Plan/Problems-Billing Assessment: Mr. Gomez is a 58 yo M with PMH of HTN, HLD; presented to the ED with c/o atypical CP and was admitted for further evaluation. - Patient Problems (1) Atypical chest pain Code(s): R07.89 - OTHER CHEST PAIN Comment: - Multiple risk factors for CAD, including hyperlipidemia, hypertension, and history of smoking - Trops peaked at 0.13 - Echo shows EF 40-45% and multiple areas of mild hypokinesis - Cardiac cath today reveals 30% stenosis to the LAD, but no critical lesions - Cardiology suspects possible stress cardiomyopathy and recommends medical management - Will need f/u appointment with Dr. Dozier in 1-2 weeks - Change metoprolol tartrate to succinate 12.5mg daily per Cardiology (2) Myositis Code(s): M60.9 - MYOSITIS, UNSPECIFIED Comment: - CPK mildly elevated - Patient reports ongoing proximal muscle weakness - Pending myositis panel and KATIANA (3) FERNANDEZ (obstructive sleep apnea) Code(s): G47.33 - OBSTRUCTIVE SLEEP APNEA (ADULT) (PEDIATRIC) Comment: - Previously using BiPAP at night, though his home machine broke and he has been using CPAP instead - Has sleep study scheduled for later this month - Will speak with Case Management to attempt to obtain new machine - BiPAP at HS while here in the hospital (4) Anxiety and depression Code(s): F41.9 - ANXIETY DISORDER, UNSPECIFIED; F32.9 - MAJOR DEPRESSIVE DISORDER, SINGLE EPISODE, UNSPECIFIED Comment: - Possible contributing factor to CP - Continue sertraline, diazepam (5) Hypertension Code(s): I10 - ESSENTIAL (PRIMARY) HYPERTENSION Comment: - Mostly normotensive, SBP 130s - Continue Inspra, amlodipine, metoprolol (6) Hyperlipidemia Code(s): E78.5 - HYPERLIPIDEMIA, UNSPECIFIED Comment: - Continue atorvastatin (7) DVT prophylaxis Comment: - Lovenox (8) Full code status Code(s): Z78.9 - OTHER SPECIFIED HEALTH STATUS Comment: Status and Disposition: Inpatient. Anticipate d/c home when medically stable, likely tomorrow. Attending: Darcie Fong
[2018-09-25] MEDS: Atorvastatin* 40 MG TAB PO SCH (18:31)
[2018-09-25] MEDS ORDERED: Enoxaparin(*) 40 MG/0.4 ML SYR SUBCUT SCH (21:00)
[2018-09-25] MEDS: CMCS Epleronone (NF) 25 MG TAB PO SCH (22:10)
[2018-09-25] MEDS: Sertraline* 100 MG TAB PO SCH (22:11)
[2018-09-26 03:51] VITALS: BP 105/49
[2018-09-26] MEDS: Levothyroxine TAB* 100 MCG TAB PO SCH (05:05)
[2018-09-26 06:59] LABS: Calcium 9.5 mg/dL (8.6-10.3); EGFR African American 84.4 (>60); EGFR Non-African American 69.7 (>60)
[2018-09-26] MEDS ORDERED: Metoprolol Succinate XL TAB* 25 MG PO SCH (09:00)
[2018-09-26] MEDS: Aspirin EC TAB* 81 MG TAB.EC PO SCH (09:57)
[2018-09-26] MEDS: amLODIPine TAB* 5 MG PO SCH (09:58)
[2018-09-26] MEDS: Magnesium Oxide TAB* 400 MG PO SCH (09:59)
[2018-09-26] MEDS: Sertraline* 50 MG TAB PO SCH (09:59)
--- NOTE | 2018-09-27 02:45 | DS ---
CC: Félix Marcus NP; Dr. Rob Dozier; Dr. Selene Mei * DISCHARGE SUMMARY: DATE OF ADMISSION: 09/22/18 DATE OF DISCHARGE: 09/26/18 PRIMARY CARE PROVIDER: Félix Marcus NP FEATHER CURLING MACHINE OPERATOR: Dr. Rob Dozier. ATTENDING PHYSICIAN: Dr. Carmella Solis * (dictated by Yolis Arana NP) PRIMARY DIAGNOSES: 1. Stress cardiomyopathy. 2. Obstructive sleep apnea. SECONDARY DIAGNOSES: 1. Anxiety. 2. Depression. 3. Hypertension. 4. Hyperlipidemia. STUDIES WHILE IN THE HOSPITAL: 1. EKG on 09/22/18 shows sinus tachycardia with a rate of 108, QTc of 472. Inverted T waves present in I, aVL, and V4 through V6. 2. Chest x-ray on 09/22/18 reads as hyperinflation with pulmonary vascular congestion and mild interstitial edema. 3. EKG on 09/22/18 shows normal sinus rhythm at a rate of 61, QTc of 428. Inverted T waves noted on previous EKG have resolved. 4. Chest thorax CTA on 09/23/18 reads as no CTA evidence of pulmonary embolism. There is a mild degree of diffuse ground-glass opacification which can be seen in the setting of chronic mild pulmonary edema or pneumonitis. Likely hepatic steatosis. Additional chronic and degenerative changes described in the body of the report. 5. EKG on 09/24/18 shows sinus bradycardia with a rate of 58, QTc 429. Normal T waves. 6. Transthoracic echocardiogram on 09/24/18 reads as, in the left ventricle, there is [id number] concentric hypertrophy. Systolic function is mildly reduced. The estimated ejection fraction is 40% to 45%. There is mild hypokinesis of the apical anterior, mid anterior, septal, basal inferior, mid anterolateral, and apical myocardium. Mild relative hypokinesis of the mid to distal anterior, anterolateral segments and possibly the proximal inferior segment. The right cavity size is moderately dilated. Wall thickness is mildly increased. Systolic function is mildly reduced. There is septal flattening of the intraventricular septum consistent with RV volume or pressure overload. There is mild mitral regurgitation. The ascending aorta is mildly dilated. CONSULTATIONS WHILE IN THE HOSPITAL: 1. Dr. Dozier from Cardiology on 09/22/18. PROCEDURES WHILE IN THE HOSPITAL: 1. Cardiac catheterization on 09/25/[address] Jb Lewis. HISTORY OF PRESENT ILLNESS AND HOSPITAL COURSE: Mr. Gomez is a 58-year-old male with a past medical history of hypertension and hyperlipidemia, who presented to the ED on 09/22/18 with complaints of chest pain. Please see the history and physical by Dr. Corral for complete summary of the events leading up to this hospitalization. In short, on arrival, the patient was noted to have an elevated lactic acid of 3.9. There is no evidence of infection. He was noted to have some EKG changes as noted above. Due to these concerns, the patient was admitted by the hospital service. The patient's lactic acid slowly resolved with IV fluids and normalized on 09/24. He did have serial troponins due to his EKG changes and troponins peaked on 09/23/18 at 0.13. The patient was seen in consultation by Dr. Dozier, who recommended continuing heparin drip, which was previously started and starting the patient on aspirin and a low-dose beta aysha. He also recommended weight loss and treatment for sleep apnea. The patient's chest pain did resolve, though ultimately the patient was taken to the clinical lab technologist on 09/25/18 for a cardiac catheterization with Dr. Lewis. At that point, the patient was noted to have 30% stenosis of the mid LAD, but no critical lesions and no significant coronary artery disease. It was determined at that point that the patient's symptomatology, abnormal echo, and elevated troponins were all secondary to stress cardiomyopathy. The cause of the stress cardiomyopathy is not clear. I did speak with Dr. Lewis yesterday after the cath, and he recommended keeping the patient overnight for observation and changing the patient over to metoprolol succinate. The patient has not had any arrhythmias on telemetry, though is noted to have frequent bradycardia, asymptomatic in the 50s at rest, and down into the 40s while sleeping. I did speak with Laura Morales NP, with Cardiology who advised that the patient should still be discharged on a low- dose beta aysha due to his cardiomyopathy and should only discontinue this beta aysha if he becomes symptomatic. The patient has not had any further chest pain or cardiac symptoms. I will note that the patient did have some leukocytosis with a white blood count up to 15.2 and as noted above, he did have an elevated lactic acid, but there was no evidence of infection. There was some concern on imaging for ground-glass opacification. Clinically, the patient does not have any respiratory symptoms and is non-toxic appearing. His vitals have been stable and there is no concern for infection at this point. Last white blood count on 09/25/18 was 11.2. The patient did have a slightly elevated hemoglobin A1c at 6.1%. The patient did report to me that he typically uses a BiPAP for his sleep apnea, which recently broke and so he has been using a CPAP instead while at home. Here, in the hospital he has been on the BiPAP and has been doing well. The patient reports feeling well today and offers no complaints. He is anxious to return home. On exam, he has no focal neurological deficits. His heart has a regular rhythm , bradycardic. There are no murmurs, rubs, or gallops. Lung sounds are clear to auscultation without rhonchi, wheezes, or rubs. Physical exam was otherwise benign. The patient has been cleared for discharge by Cardiology. Mr. Gomez is stable for discharge today. Vital signs are as follows: Temp 97.0, heart rate 51, respiratory rate 17, oxygen saturation 95% on room air, blood pressure 105/49. DISCHARGE MEDICATIONS: New medications: 1. Metoprolol succinate 12.5 mg p.o. daily. Continued medications: 1. Acetaminophen 500 mg p.o. daily p.r.n. pain. 2. Amlodipine 2.5 mg p.o. b.i.d. 3. Aspirin 81 mg p.o. daily. 4. Eplerenone 50 mg p.o. at bedtime. 5. Fluticasone 50 mcg 1 spray both nares daily. 6. Ibuprofen 600 mg p.o. q.8 hours p.r.n. pain. 7. Levothyroxine 200 mcg p.o. daily. 8. Magnesium oxide 400 mg p.o. b.i.d. 9. Ondansetron 4 mg p.o. q.6 hours p.r.n. nausea. 10. Vitamin B2 400 mg p.o. daily. 11. Rosuvastatin 2.5 mg p.o. daily. 12. Sertraline 50 mg p.o. daily. 13. Sertraline 100 mg p.o. at bedtime. 14. Vitamin B complex 1 cap p.o. daily. DISCHARGE PLAN: Mr. Gomez will be discharged to home. Activity will be as tolerated. The patient has been given specific instructions for post-cath activity restrictions. Diet will be heart healthy and weight loss has been strongly encouraged. Medications are noted above. The patient has been placed on metoprolol succinate for stress cardiomyopathy. Again, it is known at this time that the patient is bradycardic on this medication, although he can continue this medication unless he becomes symptomatic. 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 He can continue with other usual medications as noted above. I have written a work release. The patient should be out of work until he follows up with his primary care provider to discuss activity restrictions. This was suggested by Cardiology. The patient will need to follow up with his PCP and I have scheduled an appointment for 10/02/18 at 4:20 p.m. He will additionally need to follow up with Dr. Mei and has an appointment for 10/03/18 at 2:[address] Dozier on 10/05/18 at 3:20 p.m. Case Management did speak with the patient's home care company and the patient has been instructed to take his broken BiPAP into them and report that they will provide him with a replacement BiPAP so that he does not have to use the CPAP. The patient has been instructed to return to the emergency room or the nearest hospital for any worsening of symptoms, shortness of breath, lightheadedness, dizziness, chest discomfort, high fevers, chills, night sweats, loss of consciousness, or any other worrisome signs or symptoms. DISCHARGE CONDITION: Stable. DISCHARGE DISPOSITION: Home. This is a summarized report of a complex medical history and hospital stay. For further details, please see the entire medical record. TIME SPENT: Approximately 50 minutes was spent on this discharge. YOLIS ARANA NP [id number]/[facility] #: [id number] [place]
== END 2018-09-26 15:17 | disposition home or self-care (01) | DRG 287 ==
LOC: ED 03:21 → MEDTELE 05:53 → OBSVTOIN 05:53
PROVIDERS: ADMIT Internal Medicine; ATTEND Internal Medicine
PROC: 4A023N7 Measurement of Cardiac Sampling and Pressure, Left Heart, Percutaneous Approach (ICD-10-PCS; 2018-09-25)
PROC: B2111ZZ Fluoroscopy of Multiple Coronary Arteries using Low Osmolar Contrast (ICD-10-PCS; principal; 2018-09-25 08:00)
DX: I51.81 Takotsubo syndrome (principal); Z68.43 Body mass index [BMI] 50.0-59.9, adult; I42.9 Cardiomyopathy, unspecified; E78.00 Pure hypercholesterolemia, unspecified; I10 Essential (primary) hypertension; K21.9 Gastro-esophageal reflux disease without esophagitis; N20.0 Calculus of kidney; M19.90 Unspecified osteoarthritis, unspecified site; M16.0 Bilateral primary osteoarthritis of hip; G43.909 Migraine, unspecified, not intractable, without status migrainosus; J45.990 Exercise induced bronchospasm; R73.9 Hyperglycemia, unspecified; E78.5 Hyperlipidemia, unspecified; I48.0 Paroxysmal atrial fibrillation; G47.33 Obstructive sleep apnea (adult) (pediatric); E66.01 Morbid (severe) obesity due to excess calories; E03.9 Hypothyroidism, unspecified; M54.16 Radiculopathy, lumbar region; F41.9 Anxiety disorder, unspecified; F40.240 Claustrophobia; R74.8 Abnormal levels of other serum enzymes; M60.9 Myositis, unspecified; E83.42 Hypomagnesemia; I34.0 Nonrheumatic mitral (valve) insufficiency; I77.819 Aortic ectasia, unspecified site; D72.829 Elevated white blood cell count, unspecified; I44.0 Atrioventricular block, first degree; T38.0X5A Adverse effect of glucocorticoids and synthetic analogues, initial encounter; Y92.239 Unspecified place in hospital as the place of occurrence of the external cause; Z88.0 Allergy status to penicillin; Z88.8 Allergy status to other drugs, medicaments and biological substances; Z88.6 Allergy status to analgesic agent; Z88.1 Allergy status to other antibiotic agents; Z91.041 Radiographic dye allergy status; Z87.891 Personal history of nicotine dependence; Z86.19 Personal history of other infectious and parasitic diseases; Z82.49 Family history of ischemic heart disease and other diseases of the circulatory system; Z80.1 Family history of malignant neoplasm of trachea, bronchus and lung; Z79.82 Long term (current) use of aspirin; Z82.3 Family history of stroke
CPT/HCPCS: 36415; 71045; 71275; 76937; 80048; 80053; 81003; 81015; 82550; 82553; 82565; 83036; 83516; 83605; 83735; 83880; 84443; 84450; 84484; 84520; 85025; 85347; 85379; 85610; 85652; 85730; 86038; 86140; 86235; 87040; 87086; 93005; 93306; 93458; 94660; 99285; A9270-GY; C8929; J1644; J1650; J1940; J2060; J2250; J3010; J3360; J7512; Q9967

== ENCOUNTER 2019-01-07 15:27 | Emergency (ER) | payer OTHER ==
[2019-01-07 15:49] LABS: ABS Eosinophils 0.1 10^3/ul (0-0.6); ABS Lymphocytes 2.2 10^3/ul (1.0-4.8); ABS Monocytes 0.6 10^3/ul (0-0.8); ABS Neutrophils 3.8 10^3/ul (1.5-7.7); Eosinophil % 1.7 %; Hematocrit 46 % (42-52); Hemoglobin 15.6 g/dL (14.0-18.0); Lymphocyte % 32.6 %; Mean Corpuscular HGB Conc 34 g/dL (31-36); Mean Corpuscular Hemoglobin 30 pg (27-31); Mean Corpuscular Volume 89 fL (80-94); Mean Platelet Volume 6.6 fL (7.4-10.4); Platelet Count 193 10^3/uL (150-450); Red Blood Count 5.17 10^6 /uL (4.18-5.48); Red Cell Distribution Width 14 % (10-15); White Blood Count 6.8 10^3/uL (3.5-10.8)
[2019-01-07 15:52] LABS: INR 1.01 (0.82-1.09)
[2019-01-07 15:59] LABS: Albumin 4.5 g/dL (3.2-5.2); Calcium 9.4 mg/dL (8.6-10.3); Total Bilirubin 0.9 mg/dL (0.2-1.0)
--- NOTE | 2019-01-07 16:04 | ED ---
Complex/Multi-Sys Presentation - HPI Summary HPI Summary: This patient is a 58 year old M presenting to [facility] with a chief complaint of SOB and chest tightness since 01/06/19. Pt reports he is not feeling well. Patient reports cough with phlegm, abdominal pain, congestion, fatigue, ear fullness. Pt was hospitalized in the beginning of September for cardiomyopathy from cortisone shot. Pt had an MRI on 01/05/19. Pt also has seasonal allergies. Per triage, the patient rates the pain 6/10 in severity. Patient denies edema in ankle, and sore throat. Pt denies PMHx of CHF. Home Medications Medication Instructions Recorded Confirmed Type Epleronone (NF) [Inspra (NF)] 50 mg PO BEDTIME 11/16/17 09/22/18 History Magnesium Oxide TAB* [MagOx 400 400 mg PO BID 11/16/17 09/22/18 History TAB*] Rosuvastatin (NF) [Crestor (NF)] 2.5 mg PO DAILY 11/16/17 09/22/18 History Sertraline* [Zoloft*] 50 mg PO DAILY 11/16/17 09/22/18 History amLODIPine TAB* [Norvasc 5 mg TAB*] 2.5 mg PO BID 11/16/17 09/22/18 History Fluticasone NASAL SPRAY 50MCG* 1 spray BOTH NARES DAILY #1 btl 12/30/17 Rx [Flonase NASAL SPRAY 50MCG*] Ibuprofen TAB* [Motrin TAB* 600 MG] 600 mg PO Q8H PRN #20 tab 12/30/17 09/22/18 Rx Acetaminophen [Acetaminophen Extra 500 mg PO DAILY PRN 04/09/18 09/22/18 History Strength] Aspirin [Aspir-Low] 81 mg PO DAILY WITH MEAL 07/18/18 09/22/18 History Ondansetron ODT TAB* [Zofran 4 MG 4 mg PO Q6H PRN #10 tab.odt 07/18/18 09/22/18 Rx Odt TAB*] Riboflavin (Vitamin B2) 400 mg PO DAILY WITH MEAL 07/18/18 09/22/18 History [Riboflavin] Vitamin B Complex [Super B-50 1 each PO DAILY WITH MEAL 07/18/18 09/22/18 History Complex] Sertraline* [Zoloft*] 100 mg PO BEDTIME 09/22/18 09/22/18 History Levothyroxine Sodium 200 mcg PO DAILY 09/26/18 09/26/18 History Metoprolol Succinate XL TAB* 12.5 mg PO DAILY #30 tab.xl 09/26/18 Rx [Toprol XL TAB*] - History Of Current Complaint Chief Complaint: EDChestPainROMI Time Seen by Provider: 01/07/19 15:49 Hx Obtained From: Patient Onset/Duration: Gradual Onset, Lasting Days Timing: Constant Severity Currently: Moderate Severity Initially: Moderate Aggravating Factor(s): Nothing Alleviating Factor(s): Nothing Associated Signs And Symptoms: Positive: Cough, Abdominal Pain, Other - congestion, fatigue, ear fullness. Negative: Edema - Allergies/Home Medications Allergies/Adverse Reactions: Allergies Allergy/AdvReac Type Severity Reaction Status Date / Time hydromorphone Allergy Severe Altered Verified 01/07/19 15:34 Mental Status cephalexin Allergy Intermediate Hives Verified 01/07/19 15:34 erythromycin base Allergy Intermediate Hives Verified 01/07/19 15:34 Penicillins Allergy Intermediate Hives Verified 01/07/19 15:34 Tetracyclines Allergy Intermediate Hives Verified 01/07/19 15:34 cortisone Allergy CARDIOMYOPA Verified 01/07/19 15:34 THY Iodinated Contrast Media Allergy See Comment Verified 01/07/19 15:34 [Iodinated Contrast- Oral and IV Dye] sumatriptan Allergy Unknown Verified 01/07/19 15:34 Reaction Details PMH/Surg Hx/FS Hx/Imm Hx Endocrine/Hematology History: Reports: Hx Thyroid Disease - h/o thyroid storm Denies: Hx Anticoagulant Therapy, Hx Diabetes, Other Endocrine/Hematological Disorders Cardiovascular History: Reports: Hx Atrial Fibrillation, Hx Hypercholesterolemia , Hx Hypertension, Other Cardiovascular Problems/Disorders - ATRIAL FIB 2000 2ndry to thyroid storm Denies: Hx Angina, Hx Coronary Artery Disease, Hx Myocardial Infarction, Hx Pacemaker/ICD, Hx Valvular Heart Disease Respiratory History: Reports: Hx Asthma - exercise induced, Hx Sleep Apnea - CPAP - no humidification (working on it)., Other Respiratory Problems/Disorders - PN X 2 WINTER 2011 Denies: Hx Chronic Obstructive Pulmonary Disease (COPD) GI History: Reports: Hx Gastroesophageal Reflux Disease, Hx Hiatal Hernia, Other GI Disorders - Hx gastritis Denies: Hx Ulcer History: Reports: Hx Kidney Stones Denies: Hx Renal Disease, Other Problems/Disorders Musculoskeletal History: Reports: Hx Arthritis - 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 , arthritis in neck, Other Musculoskeletal History - DJD Sensory History: Reports: Hx Contacts or Glasses Denies: Hx Hearing Aid, Other Sensory Impairments Opthamlomology History: Reports: Hx Contacts or Glasses Denies: Other Sensory Impairments Neurological History: Reports: Hx Headaches - "sinus headaches", Hx Migraine Denies: Hx Dementia, Hx Seizures, Other Neuro Impairments/Disorders Psychiatric History: Reports: Hx Anxiety, Hx Panic Disorder Denies: Hx Substance Abuse, Other Psychiatric Issues/Disorders - Surgical History Surgery Procedure, Year, and Place: [facility] - Immunization History Date of Tetanus Vaccine: utd Date of Influenza Vaccine: 2015 Infectious Disease History: No Infectious Disease History: Reports: Hx Clostridium Difficile, Hx Hepatitis - 1985, Hx Shingles Denies: Hx Human Immunodeficiency Virus (HIV), Hx Tuberculosis, Traveled Outside the [place] in Last 30 Days - Family History Known Family History: Positive: Hypertension - Social History Alcohol Use: None Alcohol Amount: quit 1985 Hx Substance Use: Yes - none currently Substance Use Type: Reports: None Substance Use Comment - Amount & Last Used: quit 1985 Hx Tobacco Use: Yes - not currently Smoking Status (MU): Former Smoker Have You Smoked in the Last Year: No Review of Systems Positive: Fatigue Positive: Other - ear fullness, congestion. Negative: Sore Throat Positive: Chest Pain Positive: Shortness Of Breath, Cough Negative: Edema All Other Systems Reviewed And Are Negative: Yes Physical Exam - Summary Physical Exam Summary: Appearance: The patient is morbidly obese in no acute distress and in no acute pain. Skin: The skin is warm and dry, and skin color reflects adequate perfusion. HEENT: The head is normocephalic and atraumatic. The pupils are equal and reactive. The conjunctivae are clear and without drainage. Nares are patent and without drainage. Mouth reveals moist mucous membranes, and the throat is without erythema and exudate. The external ears are intact. The ear canals are patent and without drainage. The tympanic membranes are intact. Neck: The neck is supple with full range of motion and non-tender. There are no carotid bruits. There is no neck vein distension. Respiratory: Chest is non-tender. Lungs are clear to auscultation and breath sounds are symmetrical and equal. Cardiovascular: Heart is regular rate and rhythm. There is no murmur or rub auscultated. There is no peripheral edema and pulses are symmetrical and equal. Abdomen: The abdomen is soft and non-tender. There are normal bowel sounds heard in all four quadrants and there is no organomegaly palpated. Musculoskeletal: There is no back tenderness noted. Extremities are non-tender with full range of motion. There is good capillary refill. There is no peripheral edema or calf tenderness elicited. Neurological: Patient is alert and oriented to person, place and time. The patient has symmetrical motor strength in all four extremities. Cranial nerves are grossly intact. Deep tendon reflexes are symmetrical and equal in all four extremities. Psychiatric: The patient has an appropriate affect and does not exhibit any anxiety or depression. Triage Information Reviewed: Yes Vital Signs On Initial Exam: Initial Vitals Temp Pulse Resp BP Pulse Ox 98.3 F 76 20 169/70 98 01/07/19 15:32 01/07/19 15:32 01/07/19 15:32 01/07/19 15:32 01/07/19 15:32 Vital Signs Reviewed: Yes Diagnostics - Vital Signs Vital Signs Temp Pulse Resp BP Pulse Ox 01/07/19 15:32 98.3 F 76 20 169/70 98 - Laboratory Lab Results: Lab Results 01/07/19 01/07/19 Range/Units 15:37 15:37 WBC 6.8 (3.5-10.8) 10^3/uL RBC 5.17 (4.18-5.48) 10^6 /uL Hgb 15.6 (14.0-18.0) g/dL Hct 46 (42-52) % MCV 89 (80-94) fL MCH 30 (27-31) pg MCHC 34 (31-36) g/dL RDW 14 (10-15) % Plt Count 193 (150-450) 10^3/uL MPV 6.6 L (7.4-10.4) fL Neut % (Auto) 56.1 % Lymph % (Auto) 32.6 % Harney % (Auto) 8.9 % Eos % (Auto) 1.7 % Baso % (Auto) 0.7 % Absolute Neuts (auto) 3.8 (1.5-7.7) 10^3/ul Absolute Lymphs (auto) 2.2 (1.0-4.8) 10^3/ul Absolute Monos (auto) 0.6 (0-0.8) 10^3/ul Absolute Eos (auto) 0.1 (0-0.6) 10^3/ul Absolute Basos (auto) 0.0 (0-0.2) 10^3/ul Absolute Nucleated RBC 0.0 10^3/ul Nucleated RBC % 0.0 INR (Anticoag Therapy) 1.01 (0.82-1.09) Result Diagrams: 01/07/19 15:37 01/07/19 15:37 Lab Statement: Any lab studies that have been ordered have been reviewed, and results considered in the medical decision making process. - EKG 15:29 Cardiac Rate: NL EKG Rhythm: Sinus Rhythm Summary of EKG Findings: An EKG at 1529 reveals normal sinus rhythm 77 bpm, normal ST, no ectopy, no STEMI Re-Evaluation - Re-Evaluation First Eval Re-Evaluation Time: 18:42 Comment: Discussed results with pt. Complex Multi-Symp Course/Dx Course Of Treatment: Mr. Gomez presented with the complaint of chest tightness. He was nontoxic in appearance with stable vitals. He did admit to some congestion without cough. It all started today but yesterday he was feeling very tired. He was placed on a monitor and evaluated with a normal EKG , chest x-ray and labs including a delayed troponin. I think it's likely that he's coming down with a viral syndrome and recommended symptomatic treatment. - Diagnoses Provider Diagnoses: Viral syndrome Discharge ED - Sign-Out/Discharge Documenting (check all that apply): Patient Departure - Discharge Patient Received Moderate/Deep Sedation with Procedure: No - Discharge Plan Condition: Stable Disposition: HOME Patient Education Materials: Viral Syndrome (ED) Referrals: Félix Marcus NP [Primary Care Provider] - 3 Days Additional Instructions: Follow up with primary care provider in 2-3 days. RETURN TO THE ED FOR ANY NEW OR WORSENING SYMPTOMS. - Billing Disposition and Condition Condition: STABLE Disposition: Home - Attestation Statements Document Initiated by Scribe: Yes Documenting Scribe: Anahi Coello Provider For Whom Scribe is Documenting (Include Credential): Lucio Church MD Scribe Attestation: IAnahi, scribed for Lucio Church MD on 01/07/19 at 2024. Scribe Documentation Reviewed: Yes Provider Attestation: The documentation as recorded by the scribe, Anahi Coello accurately reflects the service I personally performed and the decisions made by me, Lucio Church MD Status of Scribe Document: Viewed
[2019-01-07 16:05] LABS: BUN/Creatinine Ratio 13.2 (8-20); EGFR African American 86.2 (>60); EGFR Non-African American 71.3 (>60); Globulin 2.2 g/dL (2-4); Total Protein 6.7 g/dL (6.4-8.9)
[2019-01-07 16:45] LABS: Potassium 3.8 mmol/L (3.5-5.0)
[2019-01-07 18:55] VITALS: BP 156/75
== END 2019-01-07 18:50 | disposition home or self-care (01) ==
LOC: ED 15:27
DX: B34.9 Viral infection, unspecified (principal); I48.91 Unspecified atrial fibrillation; E78.00 Pure hypercholesterolemia, unspecified; I10 Essential (primary) hypertension; J45.909 Unspecified asthma, uncomplicated; K21.9 Gastro-esophageal reflux disease without esophagitis; F41.9 Anxiety disorder, unspecified; Z88.5 Allergy status to narcotic agent; Z88.0 Allergy status to penicillin; Z88.8 Allergy status to other drugs, medicaments and biological substances; Z88.1 Allergy status to other antibiotic agents; Z91.041 Radiographic dye allergy status
CPT/HCPCS: 36415; 80053; 83880; 84484; 85025; 85610; 93005; 99282

== ENCOUNTER 2019-01-30 22:01 | Emergency (ER) | payer SELFPAY ==
[2019-01-30 22:32] LABS: ABS Basophils 0.1 10^3/ul (0-0.2); ABS Eosinophils 0.1 10^3/ul (0-0.6); ABS Lymphocytes 2.8 10^3/ul (1.0-4.8); ABS Monocytes 0.8 10^3/ul (0-0.8); Eosinophil % 1.2 %; Hematocrit 45 % (42-52); Hemoglobin 15.1 g/dL (14.0-18.0); Lymphocyte % 35.8 %; Mean Corpuscular HGB Conc 33 g/dL (31-36); Mean Corpuscular Hemoglobin 30 pg (27-31); Mean Corpuscular Volume 88 fL (80-94); Mean Platelet Volume 6.6 fL (7.4-10.4); Nucleated Red Blood Cells % 0.1; Platelet Count 209 10^3/uL (150-450); Red Blood Count 5.12 10^6 /uL (4.18-5.48); Red Cell Distribution Width 14 % (10-15); White Blood Count 7.7 10^3/uL (3.5-10.8)
--- OUTSIDE RECORDS SUMMARY | 2019-01-30 22:36 | XMS REPORT | Continuity of Care Document ---
:1960 External Reference #:[id number] Author Name Epifanio Jack MD (transmitted by agent of provider Khoi Wilson) Address [address] [place] [id number] Care Team Providers Name Role Phone Lennox Anderson MD - Urology Care Team Information Ecology Teacher [phone] [facility] - Care Team Information Ecology Teacher Supervisor Dehydrogenation Benjamin Kemp MD - Neurology Care Team Information Ecology Teacher Laura Wu MD - Care Team Information Ecology Teacher [phone] Dermatology Sarah Alvarez, PhD. - Clinical Care Team Information Ecology Teacher Rei Juares MD - Ophthalmology Care Team Information Ecology Teacher [phone] Mk Lowe MD - Care Team Information Ecology Teacher [phone] Otolaryngology Yovani Veliz MD - Infectious Care Team Information Ecology Teacher Disease Darius Corral MD - Internal Care Team Information Ecology Teacher Medicine Félix Marcus NP - Internal Medicine Care Team Information Ecology Teacher Problems Active Problems Provider Date Obstructive sleep apnea of adult Tabitha Lopez DNP, RN, Onset: 07/31/2014 [facility]- Essential hypertension Akin Kang M.D. Onset: 03/19/2016 [...] 04/14/2017 Headache Brien Carreon M.D. Onset: 05/26/2017 Chest pain Selene Mei MD, [facility], Onset: 10/03/2018 [facility] Derangement of knee Epifanio Jack MD Onset: 01/11/2019 Social History Type Date Description Comments Sex Unknown Tobacco Use Start: Unknown in 1989 Tobacco [...] Marijuana quit 1985 regularly Smoking Status Reviewed: 01/11/19 Heavy tobacco smoker (more than 10 cigarettes/day) Exercise Type/Frequency Exercises sporadically Allergies, Adverse Reactions, Alerts Active Allergies Reaction Severity Comments Date Tricyclic Antidepressants 07/31/2014 Penicillin Anaphylaxis Severe 09/11/2014 Keflex Anaphylaxis Severe 09/11/2014 Tetracycline Anaphylaxis Severe 09/11/2014 Erythromycin Urticaria Moderate 09/11/2014 Imitrex 05/26/2017 Medications Active Medications SIG Qnty Indications Ordering Date Provider Kristi apply 2 grams of 300gm M25.562 Félix Marcus NP 11/08/2018 1% Gel gel twice daily to the affected areas Acetaminophen-Codeine 1-2 tablets every 28tabs M25.562 Félix Marcus NP #3 12 hours as needed 300-30mg Tablets Sertraline HCL Take 1 And 1/2 45tabs F41.9 Félix Marcus NP 10/09/2018 100mg Tablets By Mouth Tablets Once Daily In Addition To 25 MG Tablet. Sertraline HCL Take 1 Tablet By 90tabs F41.9 Félix Marcus NP 10/09/2018 25mg Mouth Every Day In Tablets Addition To 150MG Protonix 1 by mouth every 30tabs Félix Marcus NP 10/09/[address] Nitroglycerin 1 sl q5 mins x3 as 25tabs Rob Yan 10/05/2018 0.4mg needed for chest Balibr Dozier Tablets Sub pain Diazepam 1/2-1 tablet twice 20tabs F41.9 Félix Marcus NP 10/02/2018 2mg Tablets daily as needed for anxiety Zofran Odt Q6H prn 10tabs Unknown 07/18/2018 4mg Tablets Dispers Meclizine HCL 1-2 tab two times 60tabs R26.81 Félix Marcus NP 04/14/2017 12.5mg a day as needed Tablets Rosuvastatin Calcium 1/2 tablet five 30tabs E78.2 Jayshree Rodríguez, 2016 times per week N.P. 5mg Tablets Compression Stockings knee high closed 1Pair E66.01 Rob Yan 05/27/2016 toe light [facility]please measure for size Ketoconazole apply twice a day 120gm B35.6 Félix Marcus NP 03/19/2016 2% Cream as needed Amlodipine Besylate 1 tab twice daily 180tabs I10 Jayshree Rodo Rodríguez, 2014 N.P. 2.5mg Tablets Jobst For [...] Unknown 07/30/2014 81mg Tablets day Levothyroxine Sodium take 1 tablet by 90tabs Félix Marcus NP 07/30/2014 mouth once daily 200mcg Tablets Gas-X Extra Strength one cap by mouth Unknown every 6 hours as 125mg Capsules needed for abdominal pain Stress 500 PO once daily Unknown B-Complex/Zinc Tablets Acetaminophen 1 gm po prn Unknown 500mg Tablets Vitamin D3 1 tablet daily Unknown 2000Iu Guaifenesin 10 cc every 4 hrs Unknown as needed Zantac 1 by mouth every Unknown 150mg Tablets day prn Riboflavin 1 po qd, pt to Unknown 400mg slowly titrate Capsules dose Metoprolol Succinate 1/2 tablet by 30tabs Rob Yan ER mouth every day Balbir Dozier 25mg Tablets ER 24HR Medications Administered in Office Medication SIG Qnty Indications Ordering Provider Date Depomedrol 40MG RAKESH Mcmullen 09/21/2018 Injection Immunizations CPT Code Status Date Vaccine Lot # [id number] Given 02/21/2018 Influenza Virus Vaccine, Quadrivalent, Split, Preservative Free [id number] Given 07/31/2014 Fluvirin Im 3Yrs And Older Vital Signs Date Vital Result Comment 01/11/2019 2:59pm Height 71 inches 5'11" Weight 350.00 lb stated Heart Rate 78 /min BP Systolic 146 mmHg BP Diastolic 84 mmHg Respiratory Rate 14 /min Pain Level 5 BMI (Body Mass Index) 48.8 kg/m2 11/30/2018 1:13pm Height 71 inches 5'11" Weight 357.00 lb Heart Rate 66 /min BP Systolic 138 mmHg BP Diastolic 78 mmHg Body Temperature 99.2 F Pain Level 6 BMI (Body Mass Index) 49.8 kg/m2 Results Test Date Facility Test Result H/L Range Note Laboratory test 01/07/2019 [facility] Troponin-I 0.00 ng/mL < 0.04 [address] (TnI) [place] [address] [phone] CBC Auto Diff 01/07/2019 [facility] White Blood 6.8 10^3/uL Normal 3.5-10.[address] [place] [address] [phone] Red Blood Count 5.17 10^6/uL Normal 4.18-5.48 Hemoglobin 15.6 g/dL Normal 14.0-18.0 Hematocrit 46 % Normal 42-52 Mean Corpuscular Volume 89 fL Normal 80-94 Mean Corpuscular Hemoglobin 30 pg Normal 27-31 Mean Corpuscular HGB Conc 34 g/dL Normal 31-36 Red Cell Distribution Width 14 % Normal 10-15 Platelet Count 193 10^3/uL Normal 150-450 Mean Platelet Volume 6.6 fL Low 7.4-10.4 Abs Neutrophils 3.8 10^3/uL Normal 1.5-7.7 Abs Lymphocytes 2.2 10^3/uL Normal 1.0-4.8 Abs Monocytes 0.6 10^3/uL Normal 0-0.8 Abs Eosinophils 0.1 10^3/uL Normal 0-0.6 Abs Basophils 0.0 10^3/uL Normal 0-0.2 Abs Nucleated RBC 0.0 10^3/uL Granulocyte % 56.1 % Lymphocyte % 32.6 % Monocyte % 8.9 % Eosinophil % 1.7 % Basophil % 0.7 % Nucleated Red Blood Cells % 0.0 Inr/Protime 01/07/2019 [facility] Inr 1.01 Normal 0.82-1.[address] [place] [address] [phone] Laboratory test 01/07/2019 [facility] B-Type 38 <=[address] Natriuretic pg/[place] [address] Peptide BNP [phone] Comp Metabolic 01/07/2019 [facility] Co2 Carbon 24 Normal 22- 32 Panel 101 [facility] Dioxide mmol/[place] [address] [phone] Calcium 9.4 mg/dL Normal 8.6-10.3 Albumin 4.5 g/dL Normal 3.2-5.2 Total Bilirubin 0.90 mg/dL Normal 0.2-1.0 Glucose 123 mg/dL High 70-100 Blood Urea Nitrogen 14 mg/dL Normal 6-24 Creatinine 1.06 mg/dL Normal 0.67-1.17 BUN/Creatinine Ratio 13.2 Normal 8-20 Total Protein 6.7 g/dL Normal 6.4-8.9 Globulin 2.2 g/dL Normal 2-4 Albumin/Globulin Ratio 2.0 Normal 1-3 Alkaline Phosphatase 48 U/L Normal 34-104 Alt 30 U/L Normal 7-52 Ast 25 U/L Normal 13-39 Egfr Non- 71.3 >60 Egfr 86.2 >60 3 Sodium 138 mmol/L Normal 135-145 Potassium 3.8 mmol/L Normal 3.5-5.0 Chloride 104 mmol/L Normal 101-111 Anion Gap 10 mmol/L Normal 2-11 Laboratory test 01/07/2019 [facility] Troponin-I (TnI) 0.00 ng/ mL <0.04 [address] [place], [place] [id number] [phone] Stool Occult 07/19/2018 [facility] Stool Occult SEE RESULT [address] Blood, [place] [address] [phone] Urinalysis 07/19/2018 [facility] Urine Color [place] Profile [address] [place] [address] [phone] Urine Appearance Cloudy Urine Specific Guion 1.025 Normal 1.010-1.030 Urine pH 5.0 Normal 5-9 Urine Urobilinogen Negative Negative Urine Ketones Negative Negative Urine Protein Negative Negative Urine Leukocytes Negative Negative Urine Blood Negative Negative * * Abnormal Negative 6 Urine Nitrite Negative Negative Urine Bilirubin Negative Negative Urine Glucose Negative Negative Laboratory test 07/19/2018 [facility] C Difficile SEE RESULT [address] [place] [address] [phone] Laboratory test 07/19/2018 [facility] Lipase 36 U/L Normal 11.0- finding [address] [place] [address] [phone] Comp Metabolic 07/19/2018 [facility] Sodium 139 mmol/L Normal 135-[address] [place] [address] [phone] Potassium 4.2 mmol/L Normal 3.5-5.0 Chloride 103 mmol/L Normal 101-111 Co2 Carbon Dioxide 25 mmol/L Normal 22-32 Anion Gap 11 mmol/L Normal 2-11 Glucose 101 mg/dL High 70-100 Blood Urea Nitrogen 12 mg/dL Normal 6-24 Creatinine 1.07 mg/dL Normal 0.67-1.17 BUN/Creatinine Ratio 11.2 Normal 8-20 Calcium 9.7 mg/dL Normal 8.6-10.3 Total Protein 7.2 g/dL Normal 6.4-8.9 Albumin 4.6 g/dL Normal 3.2-5.2 Globulin 2.6 g/dL Normal 2-4 Albumin/Globulin Ratio 1.8 Normal 1-3 Total Bilirubin 0.60 mg/dL Normal 0.2-1.0 Alkaline Phosphatase 53 U/L Normal 34-104 Alt 39 U/L Normal 7-52 Ast 33 U/L Normal 13-39 Egfr Non- 70.5 >60 Egfr 85.3 >60 8 Laboratory test 07/19/2018 [facility] Lactic Acid 1.7 mmol/L Normal 0.5-2.0 [address] [place] [address] [phone] CBC Auto Diff 07/19/2018 [facility] White Blood 8.2 10^3/uL Normal 3.5-10.[address] [place] [address] [phone] Red Blood Count 5.24 10^6/uL Normal 4.18-5.48 Hemoglobin 15.5 g/dL Normal 14.0-18.0 Hematocrit 47 % High 36-46 Mean Corpuscular Volume 89 fL Normal 80-94 Mean Corpuscular Hemoglobin 30 pg Normal 27-31 Mean Corpuscular HGB Conc 33 g/dL Normal 31-36 Red Cell Distribution Width 14 % Normal 10.5-15 Platelet Count 236 10^3/uL Normal 150-450 Mean Platelet Volume 6.6 fL Low 7.4-10.4 Abs Neutrophils 5.9 10^3/uL Normal 1.5-7.7 Abs Lymphocytes 1.6 10^3/uL Normal 1.0-4.8 Abs Monocytes 0.6 10^3/uL Normal 0-0.8 Abs Eosinophils 0.1 10^3/uL Normal 0-0.6 Abs Basophils 0 10^3/uL Normal 0-0.2 Abs Nucleated RBC 0 10^3/uL Granulocyte % 72.3 % Lymphocyte % 19.4 % Monocyte % 7.0 % Eosinophil % 0.8 % Basophil % 0.5 % Nucleated Red Blood Cells % 0 1 Troponin-I testing on Plasma Separator Tubes (PST) has a known false positive rate of 0.20-0.40%. All positive troponins reflex immediately to secondary confirmatory testing. Using the [employer] DxI 800 Access Immunoassay systems, the 99th percentile upper reference limit was demonstrated to be < 0.03 ng/mL. 2 Standard intensity warfarin therapeutic range: 2.0-3.0 High intensity warfarin therapeutic range: 2.5-3.5 3 Because ethnic data is not always [...] 5 Kidney failure <15 (or dialysis) 4 Troponin-I testing on Plasma Separator Tubes (PST) has a known false positive rate of 0.20-0.40%. All positive troponins reflex immediately to secondary confirmatory testing. Using the [employer] DxI 800 Access Immunoassay systems, the 99th percentile upper reference limit was demonstrated to be < 0.03 ng/mL. 5 SEE RESULT BELOW Name: NARGIS GOMEZ : [address]: Lucio Rodgers MD Acct: [id number] Unit: [id number] AGE: 58 Location: ED Re07/19/18 SEX: M Status: REG ER SPEC: [id number] LORAINE: 07/19/[address]: Lucio Rodgers MD REQ: [id number] RECD: 07/19/18 STATUS: NAKITA VELASQUEZ DR: Akin Kang MD _ SOURCE: STOOL SPDESC: ORDERED: Occult Bl, Diag Procedure Result Reported Site Stool Occult Blood (1) Final 07/19/18- 2248 ML Stool Occult Blood Negative Collection Date (1) 07/19/18 * ML - Main Lab . END OF REPORT DEPARTMENT OF PATHOLOGY, [address] [place] [address] Castro Conley M.D. Director [facility] # [id number] 6 *Ascorbic acid is present which may interfere with detection of blood. 7 SEE RESULT BELOW Name: NARGIS GOMEZ : [address]: Lucio Rodgers MD Acct: [id number] Unit: [id number] AGE: 58 Location: ED Re07/19/18 SEX: M Status: DEP ER SPEC: [id number] LORAINE: 07/19/18 [facility] DR: Lucio Rodgers MD REQ: [id number] RECD: 07/19/18 STATUS: [facility] DR: Akin Kang MD _ SOURCE: STOOL [...] are required. Stool Specimen Description Final 07/19/18- 2218 ML Stool Color Brown Yellow Stool Form Nonformed Stool Consistency Pasty Shiga Toxin 1 2 Final 07/21/18- 1128 ML Organism 1 Negative Shiga Toxin 1 2 Immunochromatographic Assay C. difficile PCR Final 07/19/18- 2313 ML Organism 1 027 Presumptive NEGATIVE Organism 2 Toxigenic C.diff NEGATIVE Fecal Lactoferrin (Stool WBC) Final 07/19/18- 2252 ML Fecal Lactoferrin Negative by Immunoassay CONTINUED ON NEXT PAGE DEPARTMENT OF PATHOLOGY, [address] [place] [address] Castro Conley M.D. Director [facility] # [id number] Patient: NARGIS GOMEZ [id number] (Continued) Specimen: [id number] Collected: 07/19/18 Received: 07/19/18 (Continued) Procedure Result [...] . END OF REPORT DEPARTMENT OF PATHOLOGY, [address] [place] [address] Castro Conley M.D. Director [facility] # [id number] 8 Because ethnic data is not always [...] 5 Kidney failure <15 (or dialysis) 9 [facility] Severe Sepsis and Septic Shock Management Bundle Measure requires all lactic acids initially measuring >2.0 mmol/L be repeated. Procedures Date Code Description Status 10/19/2018 33982 Echocardiogram, Limited Study Completed 10/19/2018 69189 Echocardiogram, Limited Study Completed 10/05/2018 73398 EKG Tracing & Interpretation Completed 09/25/2018 46078 Left Heart Cath. Incl S/I Coronaries, Angio S/I V Gram Completed If Done 09/24/2018 91949 ECHO Transthorasic Realtime 2D W Doppler & Color Flow Completed Hosp 09/24/2018 70863 EKG, Interpretation Only Completed 09/21/2018 22989 Inject/Drain Joint/Bursa Major W/O US Completed 05/24/2017 [id number] Diabetic Retinal Eye Exam Completed Medical Devices Description No Information Available Encounters Type Date Location Provider Dx Diagnosis Office Visit 11/30/2018 Orthopedic Epifanio F M25.562 Pain in left knee 1:00p Services Of Varun Jack MD M54.32 Sciatica, left side M54.5 Low back pain M54.16 Radiculopathy, lumbar region M25.552 Pain in left hip M16.12 Unilateral primary osteoarthritis, left hip Office Visit 11/21/2018 7:30a Pulmonology And Gretchen G47.33 Obstructive sleep Sleep Services Of MD Delvin apnea (adult) [facility] (pediatric) Z68.42 Body mass index (BMI) 45.0-49.9, adult Office Visit 11/20/2018 4:00p [facility] Internal Félixloida Marcus ART[employer]IAL STONE SETTER M25.562 Pain in left Medicine - [facility] knee M54.32 Sciatica, left side M54.5 Low back pain Office Visit 11/08/2018 9:00a [facility] Internal Félixloida Marcus, F41.9 Anxiety disorder, Medicine - [facility] ART[employer]IAL STONE SETTER unspecified I51.81 Takotsubo syndrome M25.562 Pain in left knee Office Visit 10/23/2018 2:00p [facility] Internal Félix Angeline, I51.81 Takotsubo Medicine - [facility] ART[employer]IAL STONE SETTER syndrome F41.9 Anxiety disorder, unspecified M25.562 Pain in left knee Office Visit 10/18/2018 Orthopedic Epifanio F M54.16 Radiculopathy, 3:15p Services Of MD Guero lumbar region Varun M54.5 Low back pain M25.562 Pain in left knee Office Visit 10/09/2018 4:20p [facility] Internal Félix Angeline, I51.81 Takotsubo Medicine - [facility] ARTIFICIAL STONE SETTER syndrome F41.9 Anxiety disorder, unspecified Office Visit 10/05/2018 3:40p [facility] Rob Yan R07.9 Chest pain, Of Conhcita Dozier M.D. unspecified I51.81 Takotsubo syndrome I49.5 Sick sinus syndrome I44.0 Atrioventricular block, first degree Office Visit 10/03/2018 [facility] Selene Reyes R07.9 Chest pain, 3:00p Cardiology Of MD Sigifredo, unspecified Director Of Planning AT [facility], [facility] Office Visit 10/02/2018 [facility] Internal Félix Angeline, I42.8 Other cardiomyopathies [facility] F41.9 Anxiety disorder, unspecified Z68.42 Body mass index (BMI) 45.0-49.9, adult Office Visit 09/26/2018 [facility] Yolis I42.8 Other 9:02a Assoc,pc Sumit [employer] STONE SETTER cardiomyopathies Hospitalists F41.9 Anxiety disorder, unspecified G47.33 Obstructive sleep apnea (adult) (pediatric) I10 Essential (primary) hypertension Office Visit 09/25/2018 9:01a [facility] Sumit, R07.89 Other chest Assoc,pc [employer]ONE SETTER pain Hospitalists M60.9 Myositis, unspecified G47.33 Obstructive sleep apnea (adult) (pediatric) I10 Essential (primary) hypertension Office Visit 09/24/2018 11:04a [facility] Jb Lewis, R07.9 Chest pain, Of Director Of Planning AT [facility] Balbir, [facility], unspecified FSCAI Office Visit 09/24/2018 9:01a [facility] R07.9 Chest pain, Assoc,rach Wiley MD unspecified Hospitalists R73.9 Hyperglycemia, unspecified I10 Essential (primary) hypertension G47.30 Sleep apnea, unspecified E83.42 Hypomagnesemia M60.9 Myositis, unspecified Office Visit 09/23/2018 4:23p [facility] Rob Yan R07.9 Chest painTasia M.D. unspecified R79.89 Other specified abnormal findings of blood chemistry Office Visit 09/23/2018 [facility] R07.9 Chest pain, 9:00a Assoc,rach Wiley MD unspecified Hospitalists I10 Essential (primary) hypertension R73.9 Hyperglycemia, unspecified G47.30 Sleep apnea, unspecified Office Visit 09/22/2018 8:59a [facility] Darius Solis R07.89 Other chest Assoc,rach Corral M.D.,[facility] pain Hospitalists I10 Essential (primary) hypertension G47.30 Sleep apnea, unspecified R73.9 Hyperglycemia, unspecified Office Visit 09/22/2018 1:42p [facility] Rob FJoni R07.9 Chest pain, Balbir Dozier unspecified R06.02 Shortness of breath R79.89 Other specified abnormal findings of blood chemistry G47.33 Obstructive sleep apnea (adult) (pediatric) S89.92xA Unspecified injury of left lower leg, initial encounter R00.0 Tachycardia, unspecified E66.01 Morbid (severe) obesity due to excess calories Office Visit 09/21/2018 2:00p Orthopedic Epifanio Joaquin M54.32 Sciatica, left Services Of MD Guero side C.M.A. 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, left knee Epifanio Jack MD 01/11/2019 M54.5 Low back pain Epifanio Jack MD 11/30/2018 M25.562 Pain in left knee Epifanio Jack MD 11/30/2018 M54.32 Sciatica, left side Epifanio Jack MD 11/30/2018 M54.5 Low back pain Epifanio Jack MD 11/30/2018 M54.16 Radiculopathy, lumbar region Epifanio Jack MD 11/30/2018 M25.552 Pain in left hip Epifanio Jack MD 11/30/2018 M16.12 Unilateral primary osteoarthritis, Epifanio Jack MD left hip 11/21/2018 G47.33 Obstructive sleep apnea (adult) Gretchen Hargrove MD (pediatric) 11/21/2018 Z68.42 Body mass index (BMI) 45.0-49.9, Gretchen Hargrove MD adult 11/20/2018 M25.562 Pain in left knee Félix Angeline, [employer] 11/20/2018 M54.32 Sciatica, left side Félix Angeline, [employer] SETTER 11/20/2018 M54.5 Low back pain Félix Angeline, [employer] SETTER 11/08/2018 F41.9 Anxiety disorder, unspecified Félix Angeline, [employer] SETTER 11/08/2018 I51.81 Takotsubo syndrome Félix Angeline, [employer]ONE SETTER 11/08/2018 M25.562 Pain in left knee Félix Angeline, [employer] SETTER 10/23/2018 I51.81 Takotsubo cardiomyopathy Félix Angeline, [employer] SETTER 10/23/2018 F41.9 Anxiety disorder, unspecified Félix Angeline, [employer] SETTER 10/23/2018 M25.562 Pain in left knee Félix Angeline, [employer] SETTER 10/19/2018 I51.81 Takotsubo syndrome Rob Dozier M.D. 10/19/2018 I51.81 Takotsubo syndrome Lena ECHO Schedule 10/18/2018 M54.16 Radiculopathy, lumbar region Epifanio Jack MD 10/18/2018 M54.5 Low back pain Epifanio Jack MD 10/18/2018 M25.562 Pain in left knee Epifanoi Jack MD 10/09/2018 I51.81 Takotsubo cardiomyopathy Félix Angeline, [employer] SETTER 10/09/2018 F41.9 Anxiety disorder, unspecified Félix Angeline, [employer] SETTER 10/05/2018 R07.9 Chest pain, unspecified Rob Dozier M.D. 10/05/2018 I51.81 Takotsubo cardiomyopathy Rob Dozire M.D. 10/05/2018 I49.5 Sinus node dysfunction Rob Dozier M.D. 10/05/2018 I44.0 First degree atrioventricular block Rob Dozier M.D. 10/03/2018 R07.9 Chest pain, unspecified Selene Mei MD, [facility], [facility] 10/02/2018 I42.8 Other cardiomyopathies Félix Angeline, [employer]TER 10/02/2018 F41.9 Anxiety disorder, unspecified Félix Angeline, [employer] STONE SETTER 10/02/2018 Z68.42 Body mass index (BMI) 45.0-49.9, Félix Angeline, [employer] SETTER adult 09/26/2018 I42.8 Other cardiomyopathies Yolis Sumit, [employer] STONE SETTER 09/26/2018 F41.9 Anxiety disorder, unspecified Yolis Sumit, [employer] SETTER 09/26/2018 G47.33 Obstructive sleep apnea (adult) Yolis Sumit, [employer]TER (pediatric) 09/26/2018 I10 Essential (primary) hypertension Yolis Sumit, [employer] STONE SETTER 09/25/2018 R07.89 Other chest pain Jb Lewis M.D., [facility], [facility] 09/25/2018 R07.89 Other chest pain Yolis Sumit, [employer]TER 09/25/2018 M60.9 Myositis, unspecified Yolis Sumit, [employer]ONE SETTER 09/25/2018 G47.33 Obstructive sleep apnea (adult) Yolis Sumit, [employer]TER (pediatric) 09/25/2018 I10 Essential (primary) hypertension Yolis Sumit, [employer] SETTER 09/24/2018 R07.9 Chest pain, unspecified Rob Dozier M.D. 09/24/2018 R07.9 Chest pain, unspecified Jb Lewis M.D., [facility], [facility] 09/24/2018 R07.9 Chest pain, unspecified Rob Dozier M.D. 09/24/2018 R01.1 Cardiac murmur, unspecified Rob Dozier M.D. 09/24/2018 R07.9 Chest pain, unspecified Anahi Wiley MD 09/24/2018 R73.9 Hyperglycemia, unspecified Anahi Wiley MD 09/24/2018 I10 Essential (primary) hypertension Anahi Wiley MD 09/24/2018 G47.30 Sleep apnea, unspecified Anahi Wiley MD 09/24/2018 E83.42 Hypomagnesemia Anahi Wiley MD 09/24/2018 M60.9 Myositis, unspecified Anahi Wiley MD 09/23/2018 R07.9 Chest pain, unspecified Rob Dozier M.D. 09/23/2018 R07.9 Chest pain, unspecified Anahi Wiley MD 09/23/2018 R79.89 Other specified abnormal findings of Rob Dozier M.D. blood chemistry 09/23/2018 I10 Essential (primary) hypertension Anahi Wiley MD 09/23/2018 R73.9 Hyperglycemia, unspecified Anahi Wiley MD 09/23/2018 G47.30 Sleep apnea, unspecified Anahi Wiley MD 09/22/2018 R07.9 Chest pain, unspecified Rob Dozier M.D. 09/22/2018 R06.02 Shortness of breath Rob Dozier M.D. 09/22/2018 R79.89 Other specified abnormal findings of Rob Dozier M.D. blood chemistry 09/22/2018 R07.89 Other chest pain Darius Corral M.D.,[facility] 09/22/2018 G47.33 Obstructive sleep apnea (adult) Rob Dozier M.D. (pediatric) 09/22/2018 S89.92xA Unspecified injury of left lower leg, Rob Dozier M.D. initial encounter 09/22/2018 R00.0 Tachycardia, hamzah Dozier M.D. 09/22/2018 I10 Essential (primary) hypertension Darius Corral M.D.,[facility] 09/22/2018 E66.01 Morbid (severe) obesity due to excess Rob Dozier M.D. calories 09/22/2018 G47.30 Sleep apnea, unspecified Darius Corral M.D.,[facility] 09/22/2018 R73.9 Hyperglycemia, unspecified Darius Corral M.D.,FACP 09/21/2018 M25.562 Pain in left knee Jade Pam, NADINE-C 09/21/2018 M25.562 Pain in left knee Jade Pam, RPA-C 09/21/2018 M54.32 Sciatica, left side Epifanio Jack MD 09/21/2018 M25.562 Pain in left knee Epifanio Jack MD 09/21/2018 S89.92xA Unspecified injury of left lower leg, Epifanio Jack MD initial encounter Plan of Treatment Future Appointment(s):02/01/2019 1:30 pm - Epifanio Jack MD at [facility]..11/27/2019 2:15 pm - Tabitha Lopez DNP, RN, COMPUTER COMPOSITOR -BC at [facility]01/11/2019 - Epifanio Jack, MD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, left kneeNew Therapy:Physical TherapyFollow up:Follow up: ~ 3 gesnsrY49.5 Low back painFollow up:Follow up: 3 months Functional Status Description No Information Available Mental Status Description No Information Available Referrals Refer to Dr Reason for Referral Status Appt Date [facility] Received Partial [address] [facility] [place] [id number] [phone] [facility] Patient Notified 11/21/2018 [address] [place] [id number] [phone]
[2019-01-30 22:49] LABS: Albumin 4.6 g/dL (3.2-5.2); BUN/Creatinine Ratio 12.6 (8-20); Calcium 9.9 mg/dL (8.6-10.3); EGFR African American 75.2 (>60); EGFR Non-African American 62.1 (>60); Globulin 2.3 g/dL (2-4); Potassium 3.9 mmol/L (3.5-5.0); Total Bilirubin 0.7 mg/dL (0.2-1.0); Total Protein 6.9 g/dL (6.4-8.9)
[2019-01-30 22:53] LABS: INR 0.96 (0.82-1.09)
--- NOTE | 2019-01-31 00:35 | ED ---
HPI Chest Pain - HPI Summary HPI Summary: Pt is a 59 y/o M presenting to the ED with a chief complaint of chest pain initially onset tonight after eating dinner. He states it is in his R-sided chest and radiates to his epigastrium and esophagus, described as pressure and burning. Pt reports fatigue, nausea, diarrhea, belching, and slight SOB. He notes he recently went back to work after being off for 4 months d/t myopathy. - History of Current Complaint Chief Complaint: EDChestPainROMI Time Seen by Provider: 01/30/19 23:33 Hx Obtained From: Patient Onset/Duration: Started Hours Ago Timing: Constant, Lasting Hours Initial Severity: Moderate Current Severity: Severe Pain Intensity: 7 Pain Scale Used: 0-10 Numeric Chest Pain Location: Right Anterior Chest Pain Radiates: Yes Chest Pain Radiates To:: Epigastric Character: Burning, Tightness Aggravating Factor(s): Other: - food Alleviating Factor(s): Nothing Associated Signs and Symptoms: Positive: Chest Pain, Shortness of Breath, Nausea , Other: - diarrhea, belching, fatigue - Additional Pertinent History Primary Care Physician: [id number] - Allergy/Home Medications Allergies/Adverse Reactions: Allergies Allergy/AdvReac Type Severity Reaction Status Date / Time hydromorphone Allergy Severe Altered Verified 01/07/19 15:34 Mental Status cephalexin Allergy Intermediate Hives Verified 01/07/19 15:34 erythromycin base Allergy Intermediate Hives Verified 01/07/19 15:34 Penicillins Allergy Intermediate Hives Verified 01/07/19 15:34 Tetracyclines Allergy Intermediate Hives Verified 01/07/19 15:34 cortisone Allergy CARDIOMYOPA Verified 01/07/19 15:34 THY Iodinated Contrast Media Allergy See Comment Verified 01/07/19 15:34 [Iodinated Contrast- Oral and IV Dye] sumatriptan Allergy Unknown Verified 01/07/19 15:34 Reaction Details PMH/Surg Hx/FS Hx/Imm Hx Previously Healthy: Yes Endocrine/Hematology History: Reports: Hx Thyroid Disease - h/o thyroid storm Denies: Hx Anticoagulant Therapy, Hx Diabetes, Other Endocrine/Hematological Disorders Cardiovascular History: Reports: Hx Atrial Fibrillation, Hx Hypercholesterolemia , Hx Hypertension, Other Cardiovascular Problems/Disorders - ATRIAL FIB 2000 2ndry to thyroid storm Denies: Hx Angina, Hx Coronary Artery Disease, Hx Myocardial Infarction, Hx Pacemaker/ICD, Hx Valvular Heart Disease Respiratory History: Reports: Hx Asthma - exercise induced, Hx Sleep Apnea - CPAP - no humidification (working on it)., Other Respiratory Problems/Disorders - PN X 2 WINTER 2011 Denies: Hx Chronic Obstructive Pulmonary Disease (COPD) GI History: Reports: Hx Gastroesophageal Reflux Disease, Hx Hiatal Hernia, Other GI Disorders - Hx gastritis Denies: Hx Ulcer History: Reports: Hx Kidney Stones Denies: Hx Renal Disease, Other Problems/Disorders Musculoskeletal History: Reports: Hx Arthritis - 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 , arthritis in neck, Other Musculoskeletal History - DJD Sensory History: Reports: Hx Contacts or Glasses Denies: Hx Hearing Aid, Other Sensory Impairments Opthamlomology History: Reports: Hx Contacts or Glasses Denies: Other Sensory Impairments Neurological History: Reports: Hx Headaches - "sinus headaches", Hx Migraine Denies: Hx Dementia, Hx Seizures, Other Neuro Impairments/Disorders Psychiatric History: Reports: Hx Anxiety, Hx Panic Disorder Denies: Hx Substance Abuse, Other Psychiatric Issues/Disorders - Surgical History Surgery Procedure, Year, and Place: [facility] - Immunization History Date of Tetanus Vaccine: utd Date of Influenza Vaccine: 2015 Infectious Disease History: Yes Infectious Disease History: Reports: Hx Clostridium Difficile, Hx Hepatitis - 1985, Hx Shingles Denies: Hx Human Immunodeficiency Virus (HIV), Hx Tuberculosis, Traveled Outside the [place] in Last 30 Days - Family History Known Family History: Positive: Hypertension - Social History Alcohol Use: None Alcohol Amount: quit 1985 Hx Substance Use: Yes - none currently Substance Use Type: Reports: None Substance Use Comment - Amount & Last Used: quit 1985 Hx Tobacco Use: Yes - not currently Smoking Status (MU): Former Smoker Have You Smoked in the Last Year: No Review of Systems Positive: Fatigue Positive: Chest Pain Positive: Shortness Of Breath Positive: Diarrhea, Nausea, Other - belching All Other Systems Reviewed And Are Negative: Yes Physical Exam - Summary Physical Exam Summary: Constitutional: Well-developed, Well-nourished, Alert. (-) Distressed Skin: Warm, Dry HENT: Normocephalic; Atraumatic Eyes: Conjunctiva normal Neck: Musculoskeletal ROM normal neck. (-) JVD, (-) Stridor, (-) Tracheal deviation Cardio: Rhythm regular, rate normal, Heart sounds normal; Intact distal pulses; Radial pulses are 2+ and symmetric. (-) Murmur Pulmonary/Chest wall: Effort normal. (-) Respiratory distress, (-) Wheezes, (-) Rales Abd: Soft, (-) tenderness, (-) Distension, (-) Guarding, (-) Rebound Musculoskeletal: (-) Edema Lymph: (-) Cervical adenopathy Neuro: Alert, Oriented x3 Psych: Mood and affect Normal Triage Information Reviewed: Yes Vital Signs On Initial Exam: Initial Vitals Temp Pulse Resp BP Pulse Ox 98.9 F 64 18 155/67 98 01/30/19 22:17 01/30/19 22:17 01/30/19 22:17 01/30/19 22:17 01/30/19 22:17 Vital Signs Reviewed: Yes Procedures - Sedation Patient Received Moderate/Deep Sedation with Procedure: No Diagnostics - Vital Signs Vital Signs Temp Pulse Resp BP Pulse Ox 01/30/19 23:28 63 11 141/51 97 01/30/19 23:27 79 96 01/30/19 22:17 98.9 F 64 18 155/67 98 - Laboratory Lab Results: Lab Results 01/30/19 01/30/19 01/30/19 Range/Units 22:16 22:16 22:16 WBC 7.7 (3.5-10.8) 10^3/uL RBC 5.12 (4.18-5.48) 10^6 /uL Hgb 15.1 (14.0-18.0) g/dL Hct 45 (42-52) % MCV 88 (80-94) fL MCH 30 (27-31) pg MCHC 33 (31-36) g/dL RDW 14 (10-15) % Plt Count 209 (150-450) 10^3/uL MPV 6.6 L (7.4-10.4) fL Neut % (Auto) 51.7 % Lymph % (Auto) 35.8 % Harding % (Auto) 10.5 % Eos % (Auto) 1.2 % Baso % (Auto) 0.8 % Absolute Neuts (auto) 4.0 (1.5-7.7) 10^3/ul Absolute Lymphs (auto) 2.8 (1.0-4.8) 10^3/ul Absolute Monos (auto) 0.8 (0-0.8) 10^3/ul Absolute Eos (auto) 0.1 (0-0.6) 10^3/ul Absolute Basos (auto) 0.1 (0-0.2) 10^3/ul Absolute Nucleated RBC 0.0 10^3/ul Nucleated RBC % 0.1 INR (Anticoag Therapy) 0.96 (0.82-1.09) Sodium 138 (135-145) mmol/L Potassium 3.9 (3.5-5.0) mmol/L Chloride 104 (101-111) mmol/L Carbon Dioxide 24 (22-32) mmol/L Anion Gap 10 (2-11) mmol/L BUN 15 (6-24) mg/dL Creatinine 1.19 H (0.67-1.17) mg/dL Est GFR ( Amer) 75.2 (>60) Est GFR (Non-Af Amer) 62.1 (>60) BUN/Creatinine Ratio 12.6 (8-20) Glucose 108 H (70-100) mg/dL Calcium 9.9 (8.6-10.3) mg/dL Total Bilirubin 0.70 (0.2-1.0) mg/dL AST 24 (13-39) U/L ALT 30 (7-52) U/L Alkaline Phosphatase 52 (34-104) U/L Troponin I 0.00 (<0.04) ng/mL Total Protein 6.9 (6.4-8.9) g/dL Albumin 4.6 (3.2-5.2) g/dL Globulin 2.3 (2-4) g/dL Albumin/Globulin Ratio 2.0 (1-3) Result Diagrams: 01/30/19 22:16 01/30/19 22:16 Lab Statement: Any lab studies that have been ordered have been reviewed, and results considered in the medical decision making process. - EKG 2200 Cardiac Rate: NL - 73bpm EKG Rhythm: Sinus Rhythm ST Segment: Normal Ectopy: None Summary of EKG Findings: EKG at 220 shows NSR at 73bpm with no abnormalities and no STEMI. ED physician has reviewed and interpreted this report. Chest Pain Course/Dx - Course Course Of Treatment: Patient is here with right chest pain that started while eating. Patient is overall well-appearing here with a benign exam. Patient had an EKG which showed no abnormality. Patient's serial troponins which were negative. Patient had a normal BNP. Patient was treated for cardiomyopathy which resolved in September. Patient is not fluid overloaded here and is overall appearing. 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 Dozier and your primary care provider within the next 1-3 days. Return to the emergency department with any new or worsening symptoms, including worsening leg swelling or worsening leg pain. - Billing Disposition and Condition Condition: STABLE Disposition: Home - Attestation Statements Document Initiated by Noah: Yes Documenting Scribe: Amira Montano Provider For Whom Noah is Documenting (Include Credential): Abhi Ochoa MD. Scribe Attestation: Amira Couch scribed for Abhi Ochoa MD. on 01/31/19 at 0321. Scribe Documentation Reviewed: Yes Provider Attestation: The documentation as recorded by the Amira hobbs accurately reflects the service I personally performed and the decisions made by Abhi caruso MD. Status of Scribe Document: Viewed
[2019-01-31] MEDS: Al Hydrox/Mg Hydrox/Simet LIQ* 30 ML UDC PO ONE (00:56)
[2019-01-31 02:31] VITALS: BP 132/60
== END 2019-01-31 02:29 | disposition home or self-care (01) ==
LOC: ED 22:01
DX: R07.9 Chest pain, unspecified (principal); E05.90 Thyrotoxicosis, unspecified without thyrotoxic crisis or storm; I48.91 Unspecified atrial fibrillation; E78.00 Pure hypercholesterolemia, unspecified; I10 Essential (primary) hypertension; K21.9 Gastro-esophageal reflux disease without esophagitis; F41.9 Anxiety disorder, unspecified; Z87.891 Personal history of nicotine dependence; Z88.5 Allergy status to narcotic agent; Z88.0 Allergy status to penicillin; Z88.8 Allergy status to other drugs, medicaments and biological substances; Z88.1 Allergy status to other antibiotic agents; Z91.041 Radiographic dye allergy status; Z79.82 Long term (current) use of aspirin; Z79.899 Other long term (current) drug therapy
CPT/HCPCS: 36415; 80053; 83880; 84484; 85025; 85610; 93005; 99282; A9270-GY

== ENCOUNTER 2019-03-01 05:49 | Emergency (ER) | payer OTHER ==
[2019-03-01] MEDS ORDERED: Al Hydrox/Mg Hydrox/Simet LIQ* 30 ML UDC PO ONE (06:08)
[2019-03-01] MEDS ORDERED: Lidocaine 2% VISCOUS* 15 ML UDC PO ONE (06:08)
[2019-03-01] MEDS ORDERED: Famotidine IV* 10 MG/ML 2 ML (20 mg) IV ONE (06:08)
[2019-03-01] MEDS ORDERED: NS 0.9% 1000 ML** 1,000 ML IV ONE (06:23)
--- OUTSIDE RECORDS SUMMARY | 2019-03-01 06:39 | XMS REPORT | Continuity of Care Document ---
:1960 External Reference #:[id number] Author Name Epifanio Jack MD (transmitted by agent of provider Khoi Wilson) Address [address] [place] [id number] Care Team Providers Name Role Phone Lennox Anderson MD - Urology Care Team Information Human Resources Compliance Manager [phone] [facility] - Care Team Information Human Resources Compliance Manager Mohs Surgeon Benjamin Kemp MD - Neurology Care Team Information Human Resources Compliance Manager [phone] Laura Wu MD - Care Team Information Human Resources Compliance Manager [phone] Dermatology Sarah Alvarez, PhD. - Clinical Care Team Information Human Resources Compliance Manager Rei Juares MD - Ophthalmology Care Team Information Human Resources Compliance Manager Mk Lowe MD - Care Team Information Human Resources Compliance Manager [phone] Otolaryngology Yovani Veliz MD - Infectious Care Team Information Human Resources Compliance Manager Disease Darius Corral MD - Internal Care Team Information Human Resources Compliance Manager [phone] Medicine Félix Marcus NP - Internal Medicine Care Team Information Human Resources Compliance Manager Problems Active Problems Provider Date Obstructive sleep apnea of adult Tabitha Lopez DNP, RN, Onset: 07/31/2014 [facility]- Essential hypertension Akin Kang M.D. Onset: 03/19/2016 [...] Onset: 05/26/2017 Chest pain Selene Mei MD, [facility], Onset: 10/03/2018 [facility] Derangement of knee Epifanio [...] Marijuana quit 1985 regularly Smoking Status Reviewed: 02/01/19 Heavy tobacco smoker (more than 10 cigarettes/day) [...] Rob Yan 10/05/2018 0.4mg needed for chest Balbir Dozier Tablets Sub pain Diazepam 1/2-1 tablet [...] Rob Yan 05/27/2016 toe light [facility] -please measure for size Ketoconazole apply twice a day 120gm B35.6 Félix Marcus NP 03/19/2016 2% Cream as needed Amlodipine Besylate 1 tab twice daily 180tabs I10 Jayshree Rodo Rodríguez, 2014 N.P. 2.5mg Tablets [employer] 1 pair daily as 2Pair I87.2 Rob Yan 03/12/2015 15-20MMHG/Knee needed Balbir Dozier High/Closed Toe/Large Misc Magnesium Oxide 1 by mouth twice 90tabs Rbo Yan 11/19/2014 400mg daily Balbir Dozire Tablets Inspra 2 by mouth every 180tabs [...] CPT Code Status Date Vaccine Lot # [id number] Given 02/21/2018 Influenza Virus Vaccine, Quadrivalent, Split, Preservative Free [id number] Given 07/31/2014 Fluvirin Im 3Yrs And Older Vital Signs Date Vital Result Comment 02/01/2019 1:47pm Height 71 inches 5'11" Heart Rate 89 /min BP Systolic 128 mmHg BP Diastolic 80 mmHg Respiratory Rate 18 /min Body Temperature 98.6 F Pain Level 5 01/11/2019 2:59pm Height 71 inches 5'11" Weight 350.00 lb stated Heart Rate 78 /min BP Systolic 146 mmHg BP Diastolic 84 mmHg Respiratory Rate 14 /min Pain Level 5 BMI (Body Mass Index) 48.8 kg/m2 Results Test Date Facility Test Result H/L Range Note Laboratory test 01/31/2019 [facility] Troponin-I 0.00 ng/mL < 0.[address] (TnI) [place] [address] [phone] CBC Auto Diff 01/30/2019 [facility] White Blood 7.7 10^3/uL Normal 3.5-10.8 [address] [place] [address] [phone] Red Blood Count 5.12 10^6/uL Normal 4.18-5.48 Hemoglobin 15.1 g/dL Normal 14.0-18.0 Hematocrit 45 % Normal 42-52 Mean Corpuscular Volume 88 fL Normal 80-94 Mean Corpuscular Hemoglobin 30 pg Normal 27-31 Mean Corpuscular HGB Conc 33 g/dL Normal 31-36 Red Cell Distribution Width 14 % Normal 10-15 Platelet Count 209 10^3/uL Normal 150-450 Mean Platelet Volume 6.6 fL Low 7.4-10.4 Abs Neutrophils 4.0 10^3/uL Normal 1.5-7.7 Abs Lymphocytes 2.8 10^3/uL Normal 1.0-4.8 Abs Monocytes 0.8 10^3/uL Normal 0-0.8 Abs Eosinophils 0.1 10^3/uL Normal 0-0.6 Abs Basophils 0.1 10^3/uL Normal 0-0.2 Abs Nucleated RBC 0.0 10^3/uL Granulocyte % 51.7 % Lymphocyte % 35.8 % Monocyte % 10.5 % Eosinophil % 1.2 % Basophil % 0.8 % Nucleated Red Blood Cells % 0.1 Inr/Protime 01/30/2019 [facility] Inr 0.96 Normal 0.82-1.[address] [place] [address] [phone] Comp Metabolic 01/30/2019 [facility] Sodium 138 mmol/L Normal 135-145 Panel [address] [place] [address] [phone] Potassium 3.9 mmol/L Normal 3.5-5.0 Chloride 104 mmol/L Normal 101-111 Co2 Carbon Dioxide 24 mmol/L Normal 22-32 Anion Gap 10 mmol/L Normal 2-11 Glucose 108 mg/dL High 70-100 Blood Urea Nitrogen 15 mg/dL Normal 6-24 Creatinine 1.19 mg/dL High 0.67-1.17 BUN/Creatinine Ratio 12.6 Normal 8-20 Calcium 9.9 mg/dL Normal 8.6-10.3 Total Protein 6.9 g/dL Normal 6.4-8.9 Albumin 4.6 g/dL Normal 3.2-5.2 Globulin 2.3 g/dL Normal 2-4 Albumin/Globulin Ratio 2.0 Normal 1-3 Total Bilirubin 0.70 mg/dL Normal 0.2-1.0 Alkaline Phosphatase 52 U/L Normal 34-104 Alt 30 U/L Normal 7-52 Ast 24 U/L Normal 13-39 Egfr Non- 62.1 >60 Egfr 75.2 >60 3 Laboratory test 01/30/2019 [facility] Troponin-I (TnI) 0.00 ng/ mL <0.04 4 finding [address] [place] [address] [phone] B-Type Natriuretic Peptide BNP 25 pg/mL <=100 Laboratory test 01/07/2019 [facility] Troponin-I 0.00 <0.04 5 finding 101 [facility] (TnI) ng/[place] [address] [phone] CBC Auto Diff 01/07/2019 [facility] White Blood 6.8 Normal 3.5 -10.[address] Count 10^3/[place] [address] [phone] Red Blood Count 5.17 10^6/uL Normal 4.18-5.48 [...] Red Blood Cells % 0.0 Inr/Protime 01/07/2019 [facility] Inr 1.01 Normal 0.82-1.[address] [place] [address] [phone] Laboratory test 01/07/2019 [facility] B-Type 38 <=[address] Natriuretic pg/[place] [address] Peptide BNP [phone] Comp Metabolic 01/07/2019 [facility] Co2 Carbon 24 Normal 22- [address] Dioxide mmol/[place] [address] [phone] Calcium 9.4 mg/dL Normal 8.6-10.3 Albumin 4.5 [...] Egfr Non- 71.3 >60 Egfr 86.2 >60 7 Sodium 138 mmol/L Normal 135-145 Potassium 3.8 mmol/L Normal 3.5-5.0 Chloride 104 mmol/L Normal 101-111 Anion Gap 10 mmol/L Normal 2-11 Laboratory test 01/07/2019 [facility] Troponin-I (TnI) 0.00 ng/ mL <0.[address] [address] [phone] 1 Troponin-I testing on Plasma Separator Tubes (PST) has a known false positive rate of 0.20-0.40%. All positive troponins reflex immediately to secondary confirmatory testing. Using the [employer] DxI 800 Access Immunoassay systems, the 99th [...] immediately to secondary confirmatory testing. Using the [employer] DxI 800 Access Immunoassay systems, the 99th percentile upper reference limit was demonstrated to be < 0.03 ng/mL. 5 Troponin-I testing on Plasma Separator Tubes (PST) has a known false positive rate of 0.20-0.40%. All positive troponins reflex immediately to secondary confirmatory testing. Using the [employer] DxI 800 Access Immunoassay systems, the 99th percentile upper reference limit was demonstrated to be < 0.03 ng/mL. 6 Standard intensity warfarin therapeutic range: 2.0-3.0 High intensity warfarin therapeutic range: 2.5-3.5 7 Because ethnic data is not always readily [...] 15-29 5 Kidney failure <15 (or dialysis) 8 Troponin-I testing on Plasma Separator Tubes (PST) has a known false positive rate of 0.20-0.40%. All positive troponins reflex immediately to secondary confirmatory testing. Using the XO1 Access Immunoassay systems, the 99th percentile upper reference limit was demonstrated to be < 0.03 ng/mL. Procedures Date Code Description Status 10/19/2018 19145 Echocardiogram, Limited Study Completed 10/19/2018 54735 Echocardiogram, Limited Study Completed 10/05/2018 89623 EKG Tracing & Interpretation Completed 09/25/2018 17300 Left Heart Cath. 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, left knee M54.5 Low back pain M54.5 Low back pain Office Visit 11/30/2018 1:00p Joe Joaquin M25.562 Pain in at [facility] Jack MD left knee M54.32 Sciatica, left side M54.5 Low back pain M54.16 Radiculopathy, lumbar region M25.552 Pain in left hip M16.12 Unilateral primary osteoarthritis, left hip Office Visit 11/21/2018 7:30a [facility] G47.33 Obstructive sleep [facility] apnea (adult) [employer] (pediatric) Z68.42 Body mass index (BMI) 45.0-49.9, adult Office Visit 11/20/2018 4:00p [facility] Internal Félix Angeline, MACHINIST APPRENTICE M25.562 Pain in left Medicine - [facility] knee M54.32 Sciatica, left side M54.5 Low back pain Office Visit 11/08/2018 9:00a [facility] Internal Félix Angeline, F41.9 Anxiety disorder, Medicine - [facility] MACHINIST APPRENTICE unspecified I51.81 Takotsubo syndrome M25.562 Pain in left knee Office Visit 10/23/2018 2:00p [facility] Internal Félix Angeline, I51.81 Takotsubo Medicine - [facility] MACHINIST APPRENTICE syndrome F41.9 Anxiety disorder, unspecified M25.562 Pain in left knee Office Visit 10/18/2018 [place] Epifanio F M54.16 Radiculopathy, 3:15p Orthopedics at [facility] lumbar region [place] M54.5 Low back pain M25.562 Pain in left knee Office Visit 10/09/2018 4:20p [facility] Internal Félix Angeline, I51.81 Takotsubo Medicine - [facility] MACHINIST APPRENTICE syndrome F41.9 Anxiety disorder, unspecified Office Visit 10/05/2018 3:40p [facility] Rob Yan R07.9 Chest pain, Of Conchita Dozier M.D. unspecified I51.81 Takotsubo syndrome I49.5 Sick sinus syndrome I44.0 Atrioventricular block, first degree Office Visit 10/03/2018 [place] Selene Reyes R07.9 Chest pain, 3:00p [facility] Sigifredo, unspecified [employer] Aide AT [facility] Office Visit 10/02/2018 [facility] Internal Félix Angeline, I42.8 Other cardiomyopathies 4:20p Medicine - [facility] MACHINIST APPRENTICE F41.9 Anxiety disorder, unspecified Z68.42 Body mass index (BMI) 45.0-49.9, adult Office Visit 09/26/2018 [facility] Yolis I42.8 Other 9:02a Assoc,pc Sumit, MACHINIST APPRENTICE cardiomyopathies Hospitalists F41.9 Anxiety disorder, unspecified G47.33 Obstructive sleep apnea (adult) (pediatric) I10 Essential (primary) hypertension Office Visit 09/25/2018 9:01a [facility] Yolis Sumit, R07.89 Other chest Assoc,pc MACHINIST APPRENTICE pain Hospitalists M60.9 Myositis, unspecified G47.33 Obstructive sleep apnea (adult) (pediatric) I10 Essential (primary) hypertension Office Visit 09/24/2018 11:04a [facility] Jb Lewis, R07.9 Chest pain, Of [employer] AT [facility] Balbir, FAC, unspecified FSCAI Office Visit 09/24/2018 9:01a [facility] R07.9 Chest pain, Assoc,rach Wiley MD unspecified Hospitalists R73.9 Hyperglycemia, unspecified I10 Essential (primary) hypertension G47.30 Sleep apnea, unspecified E83.42 Hypomagnesemia M60.9 Myositis, unspecified Office Visit 09/23/2018 4:23p [facility] Rob Yan R07.9 Chest painTasia M.D. unspecified R79.89 Other specified abnormal findings of blood chemistry Office Visit 09/23/2018 [facility] R07.9 Chest pain, 9:00a Assoc,rach Wiley MD unspecified Hospitalists I10 Essential (primary) hypertension R73.9 Hyperglycemia, unspecified G47.30 Sleep apnea, unspecified Office Visit 09/22/2018 8:59a [facility] Darius Solis R07.89 Other chest Assoc,rach Corral M.D.,FAC pain Hospitalists I10 Essential (primary) hypertension G47.30 Sleep apnea, unspecified R73.9 Hyperglycemia, unspecified Office Visit 09/22/2018 1:42p [facility] Rob Yan R07.9 Chest painTasia M.D. 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, left knee Epifanio Jack MD 02/01/2019 M25.562 Pain in left knee Epifanio Jack MD 02/01/2019 M54.5 Low back pain Epifanio Jack MD 01/11/2019 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, left knee Epifanio Jack MD 01/11/2019 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, left knee Epifanio Jack MD 01/11/2019 M54.5 Low back pain Epifanio Jack MD 01/11/2019 M54.5 Low back [...] adult 11/20/2018 M25.562 Pain in left knee Félixloida Marcus NP 11/20/2018 M54.32 Sciatica, left side Félix Marcus NP 11/20/2018 M54.5 Low back pain Félix Angeline, MACHINIST APPRENTICE 11/08/2018 F41.9 Anxiety disorder, unspecified Félix Angeline, MACHINIST APPRENTICE 11/08/2018 I51.81 Takotsubo syndrome Félix Angeline, MACHINIST APPRENTICE 11/08/2018 M25.562 Pain in left knee Félix Angeline, MACHINIST APPRENTICE 10/23/2018 I51.81 Takotsubo cardiomyopathy Félix Angeline, MACHINIST APPRENTICE 10/23/2018 F41.9 Anxiety disorder, unspecified Félix Angeline, MACHINIST APPRENTICE 10/23/2018 M25.562 Pain in left knee Félix Angeline, MACHINIST APPRENTICE 10/19/2018 I51.81 Takotsubo syndrome Rob Dozier M.D. 10/19/2018 I51.81 Takotsubo syndrome [facility] Schedule 10/18/2018 M54.16 Radiculopathy, lumbar region Epifanio Jack MD 10/18/2018 M54.5 Low back pain Epifanio Jack MD 10/18/2018 M25.562 Pain in left knee Epifanio Jack MD 10/09/2018 I51.81 Takotsubo cardiomyopathy Félix Angeline, MACHINIST APPRENTICE 10/09/2018 F41.9 Anxiety disorder, unspecified Félix Angeline, MACHINIST APPRENTICE 10/05/2018 R07.9 Chest pain, unspecified Rob Dozier M.D. 10/05/2018 I51.81 Takotsubo cardiomyopathy Rob Dozier M.D. 10/05/2018 I49.5 Sinus node dysfunction Rob Dozier M.D. 10/05/2018 I44.0 First degree atrioventricular block Rob Dozier M.D. 10/03/2018 R07.9 Chest pain, unspecified Selene Mei MD, [facility], [facility] 10/02/2018 I42.8 Other cardiomyopathies Félix Angeline, MACHINIST APPRENTICE 10/02/2018 F41.9 Anxiety disorder, unspecified Félix Angeline, MACHINIST APPRENTICE 10/02/2018 Z68.42 Body mass index (BMI) 45.0-49.9, Félix Angeline, MACHINIST APPRENTICE adult 09/26/2018 I42.8 Other cardiomyopathies Yolis Sumit, MACHINIST APPRENTICE 09/26/2018 F41.9 Anxiety disorder, unspecified Yolis Sumit, MACHINIST APPRENTICE 09/26/2018 G47.33 Obstructive sleep apnea (adult) Yolis Sumit, MACHINIST APPRENTICE (pediatric) 09/26/2018 I10 Essential (primary) hypertension Yolis Sumit, MACHINIST APPRENTICE 09/25/2018 R07.89 Other chest pain Jb Lewis M.D., [facility], [facility] 09/25/2018 R07.89 Other chest pain Yolis Sumit, MACHINIST APPRENTICE 09/25/2018 M60.9 Myositis, unspecified Yolis Sumit, MACHINIST APPRENTICE 09/25/2018 G47.33 Obstructive sleep apnea (adult) Yolis Sumit, MACHINIST APPRENTICE (pediatric) 09/25/2018 I10 Essential (primary) hypertension Yolis Sumit, MACHINIST APPRENTICE 09/24/2018 R07.9 Chest pain, unspecified Rob Dozier M.D. 09/24/2018 R07.9 Chest pain, unspecified Jb Lewis M.D., [facility], [facility] 09/24/2018 R07.9 Chest pain, unspecified Rob Dozier [...] Anahi Wiley MD 09/23/2018 G47.30 Sleep apnea, loriified Anahi Wliey MD 09/22/2018 R07.9 Chest pain, unspecified Rob Dozier M.D. 09/22/2018 R06.02 Shortness of breath Rob Dozier M.D. 09/22/2018 R79.89 Other specified abnormal findings of Rob Dozier M.D. blood chemistry 09/22/2018 R07.89 Other chest pain Darius Corral M.D.,FACP 09/22/2018 G47.33 Obstructive sleep apnea (adult) Rob Dozier M.D. (pediatric) 09/22/2018 S89.92xA Unspecified injury of left lower leg, Rob Dozier M.D. initial encounter 09/22/2018 R00.0 Tachycardia, hamzah Dozier M.D. 09/22/2018 I10 Essential (primary) hypertension Darius Corral M.D.,FACP 09/22/2018 E66.01 Morbid (severe) obesity due to excess Rob Dozier M.D. calories 09/22/2018 G47.30 Sleep apnea, unspecified Darius Corral M.D.,FACP 09/22/2018 R73.9 Hyperglycemia, unspecified Darius Corral M.D.,FACP 09/21/2018 M25.562 Pain in left knee Jade Orozco RPA-Jennifer 09/21/2018 M25.562 Pain in left knee RAKESH Mcmullen 09/21/2018 M54.32 Sciatica, left side Epifanio Jack MD 09/21/2018 M25.562 Pain in left knee Epifanio Jack MD 09/21/2018 S89.92xA Unspecified injury of left lower leg, Epifanio Jack MD initial encounter Plan of Treatment Future Appointment(s):04/03/2019 1:00 pm - Epifanio Jack MD at [facility] at [id number]/27/2019 2:15 pm - Tabitha Lopez DNP, RN, ROUTE PROCESS ADMINISTRATOR-BC at [facility]02/01/2019 - Epifanio Jack, MD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, left kneeFollow up:Follow up: 2 [id number] Pain in left kneeM54.5 Low back pain Functional Status Description No Information Available Mental Status Description No Information Available Referrals Refer to Reason for Referral Status Appt Date [facility] Received Partial [address] [facility] [place] [address] [phone] [facility] Patient Notified 11/21/2018 [address] [place] [id number] [phone]
[2019-03-01 06:54] LABS: ABS Basophils 0.1 10^3/ul (0-0.2); ABS Eosinophils 0.1 10^3/ul (0-0.6); ABS Lymphocytes 2.3 10^3/ul (1.0-4.8); ABS Monocytes 0.6 10^3/ul (0-0.8); ABS Neutrophils 3.8 10^3/ul (1.5-7.7); Eosinophil % 1.5 %; Hematocrit 44 % (42-52); Lymphocyte % 33.2 %; Mean Corpuscular HGB Conc 34 g/dL (31-36); Mean Corpuscular Hemoglobin 30 pg (27-31); Mean Corpuscular Volume 88 fL (80-94); Mean Platelet Volume 6.7 fL (7.4-10.4); Platelet Count 199 10^3/uL (150-450); Red Blood Count 5.02 10^6 /uL (4.18-5.48); Red Cell Distribution Width 14 % (10-15)
[2019-03-01 07:10] LABS: Albumin 4.5 g/dL (3.2-5.2); BUN/Creatinine Ratio 12.6 (8-20); Calcium 9.8 mg/dL (8.6-10.3); EGFR African American 75.2 (>60); EGFR Non-African American 62.1 (>60); Globulin 2.2 g/dL (2-4); Magnesium 1.9 mg/dL (1.9-2.7); Potassium 3.8 mmol/L (3.5-5.0); Total Bilirubin 0.6 mg/dL (0.2-1.0); Total Protein 6.7 g/dL (6.4-8.9)
[2019-03-01 07:13] LABS: Troponin I 0.01 ng/mL (<0.04)
[2019-03-01 07:56] VITALS: BP 151/68
--- NOTE | 2019-03-01 08:04 | ED ---
GI/ HPI - HPI Summary HPI Summary: Patient is a 59-year-old male with a history of gastritis, obesity, FERNANDEZ and hypertension presenting to the ED with midsternal chest pain which is "burning" in nature and radiating up into the throat. He states "I'm breathing fire." He does have a history of GERD and gastritis and states this feels similar to when he has his attacks. He does also have a history of cardiomyopathy which was treated 6 months ago. He required Takotsubo cardiomyopathy after having prednisone injections. He states this had resolved. Since that time, he has had more difficulty with GERD like symptoms. Denies SOB. Denies worsening symptoms after eating, however pain decreases with eating bananas and sitting upright. Currently on 20mg Protonix daily. Denies anorexia or unexplained weight loss. Denies dysphasia, however endorses odynophagia. Denies any vomiting or GI malignancy. Denies any hematemesis, melena, hematochezia or any occult blood in the stool. Last endoscope was several years ago. - History of Current Complaint Chief Complaint: EDGeneral Time Seen by Provider: 03/01/19 06:08 Stated Complaint: HEARTBURN PER PT Hx Obtained From: Patient Onset/Duration: Started Hours Ago Pain Intensity: 8 Associated Signs and Symptoms: Positive: Chest Pain - Additional Pertinent History Primary Care Physician: [id number] - Allergy/Home Medications Allergies/Adverse Reactions: Allergies Allergy/AdvReac Type Severity Reaction Status Date / Time hydromorphone Allergy Severe Altered Verified 03/01/19 05:58 Mental Status cephalexin Allergy Intermediate Hives Verified 03/01/19 05:58 erythromycin base Allergy Intermediate Hives Verified 03/01/19 05:58 Penicillins Allergy Intermediate Hives Verified 03/01/19 05:58 Tetracyclines Allergy Intermediate Hives Verified 03/01/19 05:58 cortisone Allergy CARDIOMYOPA Verified 03/01/19 05:58 THY Iodinated Contrast Media Allergy See Comment Verified 03/01/19 05:58 [Iodinated Contrast- Oral and IV Dye] sumatriptan Allergy Unknown Verified 03/01/19 05:58 Reaction Details PMH/Surg Hx/FS Hx/Imm Hx Previously Healthy: Yes Endocrine/Hematology History: Reports: Hx Thyroid Disease - h/o thyroid storm Denies: Hx Anticoagulant Therapy, Hx Diabetes, Other Endocrine/Hematological Disorders Cardiovascular History: Reports: Hx Atrial Fibrillation, Hx Hypercholesterolemia , Hx Hypertension, Other Cardiovascular Problems/Disorders - ATRIAL FIB 2000 2ndry to thyroid storm Denies: Hx Angina, Hx Coronary Artery Disease, Hx Myocardial Infarction, Hx Pacemaker/ICD, Hx Valvular Heart Disease Respiratory History: Reports: Hx Asthma - exercise induced, Hx Sleep Apnea - CPAP - no humidification (working on it)., Other Respiratory Problems/Disorders - PN X 2 WINTER 2011 Denies: Hx Chronic Obstructive Pulmonary Disease (COPD) GI History: Reports: Hx Gastroesophageal Reflux Disease, Hx Hiatal Hernia, Other GI Disorders - Hx gastritis Denies: Hx Ulcer History: Reports: Hx Kidney Stones Denies: Hx Renal Disease, Other Problems/Disorders Musculoskeletal History: Reports: Hx Arthritis - 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 , arthritis in neck, Other Musculoskeletal History - DJD Sensory History: Reports: Hx Contacts or Glasses Denies: Hx Hearing Aid, Other Sensory Impairments Opthamlomology History: Reports: Hx Contacts or Glasses Denies: Other Sensory Impairments Neurological History: Reports: Hx Headaches - "sinus headaches", Hx Migraine Denies: Hx Dementia, Hx Seizures, Other Neuro Impairments/Disorders Psychiatric History: Reports: Hx Anxiety, Hx Panic Disorder Denies: Hx Substance Abuse, Other Psychiatric Issues/Disorders - Surgical History Surgery Procedure, Year, and Place: [facility] - Immunization History Date of Tetanus Vaccine: utd Date of Influenza Vaccine: 2015 Hx Pertussis Vaccination: No Immunizations Up to Date: Yes Infectious Disease History: No Infectious Disease History: Reports: Hx Clostridium Difficile, Hx Hepatitis - 1985, Hx Shingles Denies: Hx Human Immunodeficiency Virus (HIV), Hx Tuberculosis, Traveled Outside the [place] in Last 30 Days - Family History Known Family History: Positive: Hypertension - Social History Occupation: Employed Full-time Lives: With Family Alcohol Use: None Alcohol Amount: quit 1985 Hx Substance Use: Yes - none currently Substance Use Type: Reports: None Substance Use Comment - Amount & Last Used: quit 1985 Hx Tobacco Use: Yes - not currently Smoking Status (MU): Former Smoker Have You Smoked in the Last Year: No Review of Systems Negative: Fever, Chills, Fatigue, Skin Diaphoresis Positive: Chest Pain - midsternal radiating to the throat Positive: Abdominal Pain. Negative: Vomiting, Diarrhea, Nausea Genitourinary: Negative Positive: no symptoms reported, see HPI Negative: Arthralgia, Myalgia Skin: Negative Neurological: Negative All Other Systems Reviewed And Are Negative: Yes Physical Exam Triage Information Reviewed: Yes Vital Signs On Initial Exam: Initial Vitals Temp Pulse Resp BP Pulse Ox 97.7 F 68 18 161/68 100 03/01/19 05:56 03/01/19 05:56 03/01/19 05:56 03/01/19 05:56 03/01/19 05:56 Vital Signs Reviewed: Yes Appearance: Positive: Well-Appearing, Well-Nourished Skin: Positive: Warm, Skin Color Reflects Adequate Perfusion Head/Face: Positive: Normal Head/Face Inspection Eyes: Positive: EOMI, MARTHA, Conjunctiva Clear Neck: Positive: Supple, No Lymphadenopathy Respiratory/Lung Sounds: Positive: Clear to Auscultation, Breath Sounds Present Cardiovascular: Positive: RRR, Pulses are Symmetrical in both Upper and Lower Extremities Musculoskeletal: Positive: Normal, Strength/ROM Intact Neurological: Positive: Sensory/Motor Intact, Alert, Oriented to Person Place, Time, Speech Normal Psychiatric: Positive: Affect/Mood Appropriate AVPU Assessment: Alert Procedures - Sedation Patient Received Moderate/Deep Sedation with Procedure: No Diagnostics - Vital Signs Vital Signs Temp Pulse Resp BP Pulse Ox 03/01/19 07:00 59 15 95 03/01/19 06:35 64 12 151/68 96 03/01/19 06:06 61 15 98 03/01/19 06:05 62 16 144/64 98 03/01/19 05:56 97.7 F 68 18 161/68 100 - Laboratory Lab Results: Lab Results 03/01/19 03/01/19 03/01/19 Range/Units 06:43 06:43 06:54 WBC 7.0 (3.5-10.8) 10^3/uL RBC 5.02 (4.18-5.48) 10^6 /uL Hgb 15.0 (14.0-18.0) g/dL Hct 44 (42-52) % MCV 88 (80-94) fL MCH 30 (27-31) pg MCHC 34 (31-36) g/dL RDW 14 (10-15) % Plt Count 199 (150-450) 10^3/uL MPV 6.7 L (7.4-10.4) fL Neut % (Auto) 54.8 % Lymph % (Auto) 33.2 % Troup % (Auto) 9.3 % Eos % (Auto) 1.5 % Baso % (Auto) 1.2 % Absolute Neuts (auto) 3.8 (1.5-7.7) 10^3/ul Absolute Lymphs (auto) 2.3 (1.0-4.8) 10^3/ul Absolute Monos (auto) 0.6 (0-0.8) 10^3/ul Absolute Eos (auto) 0.1 (0-0.6) 10^3/ul Absolute Basos (auto) 0.1 (0-0.2) 10^3/ul Absolute Nucleated RBC 0.0 10^3/ul Nucleated RBC % 0.0 Sodium 139 (135-145) mmol/L Potassium 3.8 (3.5-5.0) mmol/L Chloride 103 (101-111) mmol/L Carbon Dioxide 28 (22-32) mmol/L Anion Gap 8 (2-11) mmol/L BUN 15 (6-24) mg/dL Creatinine 1.19 H (0.67-1.17) mg/dL Est GFR ( Amer) 75.2 (>60) Est GFR (Non-Af Amer) 62.1 (>60) BUN/Creatinine Ratio 12.6 (8-20) Glucose 125 H (70-100) mg/dL Lactic Acid 1.8 (0.5-2.0) mmol/L Calcium 9.8 (8.6-10.3) mg/dL Magnesium 1.9 (1.9-2.7) mg/dL Total Bilirubin 0.60 (0.2-1.0) mg/dL AST 26 (13-39) U/L ALT 31 (7-52) U/L Alkaline Phosphatase 59 (34-104) U/L Troponin I 0.01 (<0.04) ng/mL Total Protein 6.7 (6.4-8.9) g/dL Albumin 4.5 (3.2-5.2) g/dL Globulin 2.2 (2-4) g/dL Albumin/Globulin Ratio 2.0 (1-3) Result Diagrams: 03/01/19 06:43 03/01/19 06:43 Lab Statement: Any lab studies that have been ordered have been reviewed, and results considered in the medical decision making process. GIGU Course/Dx - Course Course Of Treatment: During course of treatment, the patient is evaluated for severe GERD-like symptoms. Nondiaphoretic and nontoxic in appearing. Patient appears well and in no acute distress. Morbidly obese. He states the pain is midsternal, radiating up into his throat. Symptoms are worse with lying flat, better with sitting upright. Symptoms are better with eating bananas and worse with eating anything acidic. He's been taking Protonix, and Maalox at home without much relief. On arrival into the ED and EKG was performed which was normal sinus rhythm. Denies any shortness of breath, diaphoresis, jaw pain. Heart Score = 2 points, low score for risk of MACE. Labs obtained which are WNL in 2 including a troponin of 0.01. Patient encouraged to increased dose of his Protonix at home to twice per day. Also given prescription for viscous lidocaine and sucralfate. Encouraged to follow up with GI MELISSA for endoscope to further eavluate. - Diagnoses Differential Diagnoses - Male: Esophagitis/Gastritis, Gastritis, Gerd, Other - Infectious esophagitis, gastroparesis, achalasia, stricture, atypical chest pain , gastritis Provider Diagnoses: Esophagitis Discharge ED - Sign-Out/Discharge Documenting (check all that apply): Patient Departure - Discharge Plan Condition: Stable Disposition: HOME Prescriptions: Lidocaine 2% VISCOUS* [Xylocaine 2% Viscous*] 15 ml SWISH SPIT Q4H PRN #1 btl PRN Reason: Pain - Mild Sucralfate SUSP 1 gm PO QID #400 ml Patient Education Materials: Gastritis (ED), Diet for Stomach Ulcers and Gastritis (ED) Referrals: Jim Payne MD [Medical Doctor] - Félix Marcus NP [Primary Care Provider] - Additional Instructions: Protonix 20mg twice daily x 1 month before breakfast and before dinner Call GI today to make an appt Sucralfate four times daily x 10 days Maalox plus up to four times daily Lidocaine four times daily Sleep upright DO NOT TAKE ANY NSAIDS (IBUPROFEN, NAPROXEN, ETC.) Continue with ulcer diet - Billing Disposition and Condition Condition: STABLE Disposition: Home
[2019-03-01] MEDS ORDERED: Sucralfate SUSP 1 GM/10 ml 10 ML UDC PO SCH (11:30)
== END 2019-03-01 08:10 | disposition home or self-care (01) ==
LOC: ED 05:49
DX: K21.0 Gastro-esophageal reflux disease with esophagitis (principal); I48.91 Unspecified atrial fibrillation; E78.00 Pure hypercholesterolemia, unspecified; I10 Essential (primary) hypertension; F41.9 Anxiety disorder, unspecified; Z87.891 Personal history of nicotine dependence; Z79.899 Other long term (current) drug therapy; Z88.5 Allergy status to narcotic agent; Z88.0 Allergy status to penicillin; Z88.8 Allergy status to other drugs, medicaments and biological substances; Z88.1 Allergy status to other antibiotic agents; Z91.041 Radiographic dye allergy status
CPT/HCPCS: 36415; 80053; 83605; 83735; 84484; 85025; 93005; 96361; 96374; 99283; A9270-GY

== ENCOUNTER 2019-03-31 22:10 | Emergency (ER) | payer OTHER ==
--- OUTSIDE RECORDS SUMMARY | 2019-03-31 22:40 | XMS REPORT | Continuity of Care Document ---
:1960 External Reference #:[id number] Author Name Jayshree Rodríguez N.P. (transmitted by agent of provider Fara Britt) Address [address] [place] [address] Care Team Providers Name Role Phone Lennox Anderson MD - Urology Care Team Information Inside Account Representative [phone] [facility] - Care Team Information Inside Account Representative Field Technical Assistant Benjamin Kemp MD - Neurology Care Team Information Inside Account Representative Laura Wu MD - Care Team Information Inside Account Representative [phone] Dermatology Sarah Alvarez, PhD. - Clinical Care Team Information Inside Account Representative [phone] Rei Juares MD - Ophthalmology Care Team Information Inside Account Representative [phone] Mk Lowe MD - Care Team Information Inside Account Representative [phone] Otolaryngology Yovani Veliz MD - Infectious Care Team Information Inside Account Representative Disease Darius Corral MD - Internal Care Team Information Inside Account Representative Medicine Lucrecia Dent MD - Internal Medicine Care Team Information Inside Account Representative Problems Active Problems Provider Date Obstructive sleep apnea of adult Tabitha Lopez DNP, RN, Onset: 07/31/2014 [facility]- Essential hypertension Akin Kang M.D. [...] Onset: 05/26/2017 Chest pain Selene Mei MD, [facility], Onset: 10/03/2018 [facility] Derangement of knee Epifanio [...] Medications SIG Qnty Indications Ordering Date Provider Pantoprazole Sodium 1 by mouth every 30tabs Félix Marcus NP 03/05/[address] Berry apply 2 grams of 300gm M25.562 Félix Marcus NP 11/08/2018 1% Gel gel twice daily to the affected areas Acetaminophen-Codeine 1-2 tablets every 28tabs M25.562 Félix Marcus NP #3 12 hours as needed 300-30mg Tablets Sertraline HCL take 1 and 1/2 45tabs F41.9 Félix Marcus NP 10/09/2018 100mg tablets by mouth Tablets once daily in addition to 25 mg tablet. Sertraline HCL take 1 tablet by 90tabs F41.9 Félix Marcus NP 10/09/2018 25mg mouth every day in Tablets addition to 150mg Nitroglycerin 1 sl q5 mins x3 as [...] Rob Yan 05/27/2016 toe light Balbir Dozier Misc compression -please measure for size Ketoconazole apply [...] day Balbir Dozier 25mg Tablets ER 24HR History Medications Protonix 1 by mouth every 30tabs Félix Marcus NP 10/09/2018 - 20mg Tablets day 03/05/2019 Medications Administered in Office Medication SIG Qnty Indications Ordering Provider Date Depomedrol 40MG RAKESH Mcmullen 09/21/2018 Injection Immunizations CPT Code Status Date Vaccine Lot # [id number] Given 02/21/2018 Influenza Virus Vaccine, Quadrivalent, Split, [...] (Body Mass Index) 48.8 kg/m2 Results Test Acquired Date Facility Test Result H/L Range Note CBC Auto 03/01/2019 [facility] White Blood 7.0 10^3/uL Normal 3.5-10.[address] [place] [address] [phone] Red Blood Count 5.02 10^6/uL Normal 4.18-5.48 Hemoglobin 15.0 g/dL Normal 14.0-18.0 Hematocrit 44 % Normal 42-52 Mean Corpuscular Volume 88 fL Normal 80-94 Mean Corpuscular Hemoglobin 30 pg Normal 27-31 Mean Corpuscular HGB Conc 34 g/dL Normal 31-36 Red Cell Distribution Width 14 % Normal 10-15 Platelet Count 199 10^3/uL Normal 150-450 Mean Platelet Volume 6.7 fL Low 7.4-10.4 Abs Neutrophils 3.8 10^3/uL Normal 1.5-7.7 Abs Lymphocytes 2.3 10^3/uL Normal 1.0-4.8 Abs Monocytes 0.6 10^3/uL Normal 0-0.8 Abs Eosinophils 0.1 10^3/uL Normal 0-0.6 Abs Basophils 0.1 10^3/uL Normal 0-0.2 Abs Nucleated RBC 0.0 10^3/uL Granulocyte % 54.8 % Lymphocyte % 33.2 % Monocyte % 9.3 % Eosinophil % 1.5 % Basophil % 1.2 % Nucleated Red Blood Cells % 0.0 Comp Metabolic 03/01/2019 [facility] Sodium 139 mmol/L Normal 135-[address] [place] [address] [phone] Potassium 3.8 mmol/L Normal 3.5-5.0 Chloride 103 mmol/L Normal 101-111 Co2 Carbon Dioxide 28 mmol/L Normal 22-32 Anion Gap 8 mmol/L Normal 2-11 Glucose 125 mg/dL High 70-100 Blood Urea Nitrogen 15 mg/dL Normal 6-24 Creatinine 1.19 mg/dL High 0.67-1.17 BUN/Creatinine Ratio 12.6 Normal 8-20 Calcium 9.8 mg/dL Normal 8.6-10.3 Total Protein 6.7 g/dL Normal 6.4-8.9 Albumin 4.5 g/dL Normal 3.2-5.2 Globulin 2.2 g/dL Normal 2-4 Albumin/Globulin Ratio 2.0 Normal 1-3 Total Bilirubin 0.60 mg/dL Normal 0.2-1.0 Alkaline Phosphatase 59 U/L Normal 34-104 Alt 31 U/L Normal 7-52 Ast 26 U/L Normal 13-39 Egfr Non- 62.1 >60 Egfr 75.2 >60 1 Laboratory test 03/01/2019 [facility] Magnesium 1.9 mg/dL Normal 1.9-2.[address] [place] [address] [phone] Troponin-I (TnI) 0.01 ng/mL <0.04 2 Lactic Acid 1.8 mmol/L Normal 0.5-2.0 3 Laboratory test 01/31/2019 [facility] Troponin-I 0.00 <0.04 [address] (TnI) ng/[place] [address] [phone] CBC Auto Diff 01/30/2019 [facility] White Blood 7.7 Normal 3.5 -10.[address] Count 10^3/[place] [address] [phone] Red Blood Count 5.12 10^6/uL Normal 4.18-5.48 [...] Red Blood Cells % 0.1 Inr/Protime 01/30/2019 [facility] Inr 0.96 Normal 0.82-1.09 5 [address] [place] [address] [phone] Comp Metabolic 01/30/2019 [facility] Sodium 138 mmol/L Normal 135-145 Panel [address] [place] [address] [phone] Potassium 3.9 mmol/L Normal 3.5-5.0 Chloride 104 [...] Egfr Non- 62.1 >60 Egfr 75.2 >60 6 Laboratory test 01/30/2019 [facility] Troponin-I (TnI) 0.00 ng/ mL <0.04 7 finding [address] [place] [address] [phone] B-Type Natriuretic Peptide BNP 25 pg/mL <=100 Laboratory test 01/07/2019 [facility] Troponin-I 0.00 ng/mL < 0.[address] (TnI) [place] [address] [phone] Comp Metabolic 01/07/2019 [facility] Co2 Carbon 24 mmol/L Normal 22-[address] [place] [address] [phone] Calcium 9.4 mg/dL Normal 8.6-10.3 Albumin 4.5 [...] Egfr Non- 71.3 >60 Egfr 86.2 >60 9 Sodium 138 mmol/L Normal 135-145 Potassium 3.8 mmol/L Normal 3.5-5.0 Chloride 104 mmol/L Normal 101-111 Anion Gap 10 mmol/L Normal 2-11 Laboratory 01/07/2019 [facility] B-Type 38 pg/mL <=[address] [place] [address] Peptide BNP [phone] Inr/Protime 01/07/2019 [facility] Inr 1.01 Normal 0.82-1.[address] [place] [address] [phone] CBC Auto Diff 01/07/2019 [facility] White Blood 6.8 Normal 3.5 -10.[address] Count 10^3/[place] [address] [phone] Red Blood Count 5.17 10^6/uL Normal 4.18-5.48 [...] % Nucleated Red Blood Cells % 0.0 Laboratory test 01/07/2019 [facility] Troponin-I (TnI) 0.00 ng/ mL <0.04 [address] [place] [id number] [phone] 1 Because ethnic data is not always readily [...] 15-29 5 Kidney failure <15 (or dialysis) 2 Troponin-I testing on Plasma Separator Tubes (PST) has a known false positive rate of 0.20-0.40%. All positive troponins reflex immediately to secondary confirmatory testing. Using the [employer] DxI 800 Access Immunoassay systems, the 99th percentile upper reference limit was demonstrated to be < 0.03 ng/mL. 3 [facility] Severe Sepsis and Septic Shock Management Bundle Measure requires all lactic acids initially measuring >2.0 mmol/L be repeated. 4 Troponin-I testing on Plasma Separator Tubes (PST) has a known false positive rate of 0.20-0.40%. All positive troponins reflex immediately to secondary confirmatory testing. Using the [employer] DxI 800 Access Immunoassay systems, the 99th percentile upper reference limit was demonstrated to be < 0.03 ng/mL. 5 Standard intensity warfarin therapeutic range: 2.0-3.0 High intensity warfarin therapeutic range: 2.5-3.5 6 Because ethnic data is not always [...] 5 Kidney failure <15 (or dialysis) 7 Troponin-I testing on Plasma Separator Tubes (PST) has a known false positive rate of 0.20-0.40%. All positive troponins reflex immediately to secondary confirmatory testing. Using the [employer] DxI 800 Access Immunoassay systems, the 99th percentile upper reference limit was demonstrated to be < 0.03 ng/mL. 8 Troponin-I testing on Plasma Separator Tubes (PST) has a known false positive rate of 0.20-0.40%. All positive troponins reflex immediately to secondary confirmatory testing. Using the [employer] DxI 800 Access Immunoassay systems, the 99th percentile upper reference limit was demonstrated to be < 0.03 ng/mL. 9 Because ethnic data is not always readily [...] 5 Kidney failure <15 (or dialysis) 10 Standard intensity warfarin therapeutic range: 2.0-3.0 High intensity warfarin therapeutic range: 2.5-3.5 11 Troponin-I testing on Plasma Separator Tubes (PST) has a known false positive rate of 0.20-0.40%. All positive troponins reflex immediately to secondary confirmatory testing. Using the [employer] DxI 800 Access Immunoassay systems, the 99th percentile upper reference limit was demonstrated to be < 0.03 ng/mL. Procedures Date Code Description Status 10/19/2018 89313 Echocardiogram, Limited Study Completed 10/19/2018 99292 Echocardiogram, Limited Study Completed 10/05/2018 45692 EKG Tracing & Interpretation Completed 05/24/2017 [id number] Diabetic Retinal Eye Exam Completed Medical Devices Description No Information Available Encounters Type Date Location Provider Dx Diagnosis Office Visit 02/01/2019 Joe Joaquin M22.2x2 Patellofemoral 1:30p at [facility] disorders, left knee M25.562 Pain in left knee M54.5 Low back pain Office Visit 01/11/2019 Joe Joaquin M22.2x2 Patellofemoral 2:30p [facility]oped[facility] at [facility] disorders, left [place] knee 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, left knee M54.5 [...] [facility] apnea (adult) [facility] (pediatric) Z68.42 Body mass index (BMI) 45.0-49.9, adult Office Visit 11/20/2018 4:00p [facility] Internal Félix Angeline, SERVIC[employer] ADMINISTRATOR M25.562 Pain in left Medicine - [facility] knee M54.32 Sciatica, left side M54.5 Low back pain Office Visit 11/08/2018 9:00a [facility] Internal Félix Angeline, F41.9 Anxiety disorder, Medicine - [facility] SERVIC[employer] ADMINISTRATOR unspecified I51.81 Takotsubo syndrome M25.562 Pain in left knee Office Visit 10/23/2018 2:00p [facility] Internal Félix Angeline, I51.81 [facility] [employer] ADMINIST[facility] syndrome F41.9 Anxiety disorder, unspecified M25.562 Pain in left knee Office Visit 10/18/2018 [place] Epifanio Joaquin M54.16 Radiculopathy, 3:15p [facility] lumbar region [place] M54.5 Low back pain M25.562 Pain in left knee Office Visit 10/09/2018 4:20p [facility] Internal Félix Angeline, I51.81 [facility] [employer] ADMINISTRATOR syndrome F41.9 Anxiety disorder, unspecified Office Visit 10/05/2018 3:40p [place] [facility] Rob Yan R07.9 Chest pain, Of [facility] Balbir Dozier unspecified I51.81 Takotsubo syndrome I49.5 Sick sinus syndrome I44.0 Atrioventricular block, first degree Office Visit 10/03/2018 [place] Selene Reyes R07.9 Chest pain, 3:00p [facility], unspecified 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 [facility] Office Visit 10/02/2018 [facility] Internal Félix Angeline, I42.8 Other cardiomyopathies 4:20p [facility] [employer] ADMINISTRATOR F41.9 Anxiety disorder, unspecified Z68.42 Body mass index (BMI) 45.0-49.9, adult Assessments Date Code Description Provider 02/01/2019 M22.2x2 [...] M25.562 Pain in left knee Félix Angeline, SERVICENOW ADMINISTRATOR 11/20/2018 M54.32 Sciatica, left side Félix Angeline, SERVICENOW ADMINISTRATOR 11/20/2018 M54.5 Low back pain Félix Angeline, SERVICENOW ADMINISTRATOR 11/08/2018 F41.9 Anxiety disorder, unspecified Félix Angeline, SERVICENOW ADMINISTRATOR 11/08/2018 I51.81 Takotsubo syndrome Félix Angeline, SERVICENOW ADMINISTRATOR 11/08/2018 M25.562 Pain in left knee Félix Angeline, SERVICENOW ADMINISTRATOR 10/23/2018 I51.81 Takotsubo cardiomyopathy Félix Angeline, SERVICENOW ADMINISTRATOR 10/23/2018 F41.9 Anxiety disorder, unspecified Félix Angeline, SERVICENOW ADMINISTRATOR 10/23/2018 M25.562 Pain in left knee Félix Angeline, SERVICENOW ADMINISTRATOR 10/19/2018 I51.81 Takotsubo syndrome Rob Dozier M.D. 10/19/2018 I51.81 Takotsubo syndrome [facility] Schedule 10/18/2018 M54.16 Radiculopathy, lumbar region Epifanio Jack MD 10/18/2018 M54.5 Low back pain Epifanio Jack MD 10/18/2018 M25.562 Pain in left knee Epifanio Jack MD 10/09/2018 I51.81 Takotsubo cardiomyopathy Félix Marcus NP 10/09/2018 F41.9 Anxiety disorder, unspecified Félix Marcus NP 10/05/2018 R07.9 Chest pain, unspecified Rob Dozier M.D. 10/05/2018 I51.81 Takotsubo cardiomyopathy Rob Dozier M.D. 10/05/2018 I49.5 Sinus node dysfunction Rob Dozier M.D. 10/05/2018 I44.0 First degree atrioventricular block Rob Dozier M.D. 10/03/2018 R07.9 Chest pain, unspecified Selene Mei MD, [facility] 10/02/2018 I42.8 Other cardiomyopathies Félix Marcus NP 10/02/2018 F41.9 Anxiety disorder, unspecified Félix Marcus NP 10/02/2018 Z68.42 Body mass index (BMI) 45.0-49.9, Félix Marcus NP adult Plan of Treatment Future Appointment(s):04/26/2019 1:00 pm - Félix Marcus NP at [facility] - Epifanio Jack, MD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, left kneeFollow up:Follow up: 2 hxfmpyC18.562 Pain in left kneeM54.5 Low back pain Functional Status Description No Information Available Mental Status Description No Information Available Referrals Refer to Reason for Referral Status Appt Date [facility] Received Partial [address] [place] [address] [phone]
--- OUTSIDE RECORDS SUMMARY | 2019-03-31 22:40 | XMS REPORT | Continuity of Care Document ---
:1960 External Reference #:[id number] Author Name Faby Washington PA-C Address [address] [place] [address] Problems Active Problems Provider Date Kidney stone Akin Kang MD Onset: 03/19/2016 Obstructive sleep apnea syndrome Akin Kang MD Onset: 03/19/2016 Gastroesophageal reflux disease Akin Kang MD Onset: 03/19/2016 Hyperlipidemia Akin Kang MD Onset: 03/19/2016 Essential hypertension Akin Kang MD Onset: 03/19/2016 Obstructive sleep apnea of adult Tabitha Lopez NP Onset: 07/31/2014 Social History Type Date Description Comments Sex Unknown Tobacco Use Start: Unknown End: Unknown Patient is a former smoker Smoking Status Reviewed: 03/07/19 Patient is a former smoker Allergies, Adverse Reactions, Alerts Active Allergies Reaction Severity Comments Date Penicillins 09/09/2014 Tetracycline 09/09/2014 Penicillin Anaphylaxis Severe 09/11/2014 Keflex 09/09/2014 Erythromycin 09/09/2014 Contrast Dye 09/09/2014 Dilaudid 03/07/2019 Medications Active Medications SIG Qnty Indications Ordering Date Provider Pantoprazole Sodium 1 by mouth bid at 60tabs K21.9 Saritha 03/07/2019 least 30min MD Lucy 20mg Tablets DR before meals Sucralfate Four Times Daily 400units Unknown 03/01/2019 1GM/10ML Suspension Lidocaine Viscous HCL Q4H 1units Unknown 03/01/2019 2% Solution Metoprolol Succinate 1/2 by mouth 30tabs Unknown 09/26/2018 ER every day 25mg Tablets ER 24HR Sertraline HCL Bedtime Unknown 09/22/2018 100mg Tablets Ondansetron Q6H 10tabs Unknown 07/18/2018 4mg Tablets Dispers Eplerenone Bedtime Unknown 11/16/2017 50mg Tablets Rosuvastatin Calcium Every Day Unknown 11/16/2017 5mg Tablets Ketoconazole apply twice a day 120units Pamela Kang 03/19/2016 2% Cream MD manish Amlodipine Besylate 1 tab every day 30tabs Tasia, 03/31/2015 MD Rob 2.5mg Tablets Magnesium Oxide 1 by mouth twice 90tabs Tasia, 11/19/2014 daily MD Rob 400(241.3Mg) mg Tablets Levothyroxine Sodium 1 po qd Unknown 07/30/2014 200mcg Solution Rec Aspir-81 1 by mouth every Unknown 07/30/2014 81mg Tablets day Gas-X Extra Strength one cap by mouth Unknown every 6 hours as 125mg Capsules needed for abdominal pain Acetaminophen take 2 tablets by Unknown 500mg mouth every 8 Tablets hours as needed for pain Zoloft 1 1/2 tabs by 45tabs [place] Philip, 100mg Tablets mouth daily History Medications Levothyroxine Sodium Every Day Unknown 09/26/2018 - 03/06/2019 200mcg Tablets Immunizations CPT Code Status Date Vaccine Lot # [id number] Given 07/31/2014 Influenza Vaccine (Fluvirin) 3 Years Of Age Or Older Vital Signs Date Vital Result Comment 03/07/2019 2:46pm Height 71 inches 5'11" Weight 355.00 lb BP Systolic 163 mmHg BP Diastolic 86 mmHg Heart Rate 61 /min BMI (Body Mass Index) 49.5 kg/m2 Results Test Acquired Facility Test Result H/L Range Note Date Serum or plasma 03/01/2019 N2N/CCD Import Serum or plasma 139 135-145 sodium measurement sodium measurement mmol/L (moles/volume) (moles/volume) Serum or plasma 03/01/2019 N2N/CCD Import Serum or plasma 3.8 3.5-5.0 potassium potassium mmol/L measurement measurement (moles/volum (moles/volume) Serum or plasma 03/01/2019 N2N/CCD Import Serum or plasma 103 101-111 chloride chloride mmol/L measurement measurement (moles/volume (moles/volume) Serum or plasma 03/01/2019 N2N/CCD Import Serum or plasma 28 mmol/L 22- 32 carbon dioxide, carbon dioxide, total measurement total measurement (moles/volume) Serum or plasma 03/01/2019 N2N/CCD Import Serum or plasma 8 mmol/L 2-11 anion gap anion gap Serum glucose 03/01/2019 N2N/CCD Import Serum glucose 125 mg/dL 70-100 measurement measurement (mass/volume) (mass/volume) Serum or plasma 03/01/2019 N2N/CCD Import Serum or plasma 15 mg/dL 6-24 urea nitrogen urea nitrogen measurement measurement (mass/vo (mass/volume) Serum or plasma 03/01/2019 N2N/CCD Import Serum or plasma 1.19 0.67-1. creatinine creatinine mg/dL 17 measurement measurement (mass/volum (mass/volume) Serum or plasma 03/01/2019 N2N/CCD Import Serum or plasma 12.6 8-20 urea urea nitrogen/creatinine nitrogen/creatinine ratio ratio Serum or plasma 03/01/2019 N2N/CCD Import Serum or plasma 9.8 mg/dL 8.6- 10. calcium measurement calcium measurement 3 (mass/volume) (mass/volume) Serum or plasma 03/01/2019 N2N/CCD Import Serum or plasma 1.9 mg/dL 1.9- 2.7 magnesium magnesium measurement measurement (mass/volume (mass/volume) Serum total protein 03/01/2019 N2N/CCD Import Serum total protein 6.7 g/dL 6.4-8.9 measurement measurement (mass/volume) (mass/volume) Serum or plasma 03/01/2019 N2N/CCD Import Serum or plasma 4.5 g/dL 3.2- 5.2 albumin measurement albumin measurement by bromocresol by bromocresol green (BCG) dye binding method (ma Lab Results 03/01/2019 N2N/CCD Import Globulin 2.2 g/dL 2-4 Serum or plasma 03/01/2019 N2N/CCD Import Serum or plasma 2.0 1-3 albumin/globulin albumin/globulin mass ratio mass ratio Serum or plasma 03/01/2019 N2N/CCD Import Serum or plasma 0.60 0.2-1.0 total bilirubin total bilirubin mg/dL measurement (mass/ measurement (mass/volume) Serum or plasma 03/01/2019 N2N/CCD Import Serum or plasma 59 U/L 34-104 alkaline alkaline phosphatase phosphatase measurement ( measurement (enzymatic activity/volume) Serum or plasma 03/01/2019 N2N/CCD Import Serum or plasma 31 U/L 7-52 alanine alanine aminotransferase aminotransferase measureme measurement (enzymatic activity/volume) Serum or plasma 03/01/2019 N2N/CCD Import Serum or plasma 26 U/L 13-39 aspartate aspartate aminotransferase aminotransferase measure measurement (enzymatic activity/volume) Serum or plasma 03/01/2019 N2N/CCD Import Serum or plasma 0.01 troponin i.cardiac troponin i.cardiac ng/mL measurement (ma measurement (mass/volume) Estimated 03/01/2019 N2N/CCD Import Estimated 62.1 glomerular glomerular filtration rate filtration rate (GFR) non-Afr (GFR) non- Lab Results 03/01/2019 N2N/CCD Import Estimated GFR 75.2 () Serum or plasma 03/01/2019 N2N/CCD Import Serum or plasma 1.8 0.5-2.0 lactate measurement lactate measurement mmol/L (moles/volume) (moles/volume) Automated blood 03/01/2019 N2N/CCD Import Automated blood 7.0 3.5-10. leukocytes count leukocytes count 10^3/uL 8 corrected for nuc corrected for nucleated erythrocytes (number/volume) Automated blood 03/01/2019 N2N/CCD Import Automated blood 5.02 4.18-5. erythrocyte count erythrocyte count 10^6/uL 48 (number/volume) (number/volume) Blood hemoglobin 03/01/2019 N2N/CCD Import Blood hemoglobin 15.0 g/dL 14.0-18 measurement measurement .0 (mass/volume) (mass/volume) Automated blood 03/01/2019 N2N/CCD Import Automated blood 44 % 42-52 hematocrit hematocrit (percentage) (percentage) Automated 03/01/2019 N2N/CCD Import Automated 88 fL 80-94 erythrocyte mean erythrocyte mean corpuscular volume corpuscular volume Automated 03/01/2019 N2N/CCD Import Automated 30 pg 27-31 erythrocyte mean erythrocyte mean corpuscular corpuscular hemoglobin hemoglobin (mass per erythrocyte) Automated 03/01/2019 N2N/CCD Import Automated 34 g/dL 31-36 erythrocyte mean erythrocyte mean corpuscular corpuscular hemoglobin hemoglobin concentration measurement (mass/vol Automated 03/01/2019 N2N/CCD Import Automated 14 % 10-15 erythrocyte erythrocyte distribution width distribution width ratio ratio Automated blood 03/01/2019 N2N/CCD Import Automated blood 199 150-450 platelet count platelet count 10^3/uL (number/volume) (number/volume) Automated blood 03/01/2019 N2N/CCD Import Automated blood 6.7 fL 7.4- 10. platelet mean platelet mean 4 volume measurement volume measurement CT biopsy liver 03/01/2019 N2N/CCD Import CT biopsy liver 3.8 1.5-7.7 10^3/ul Blood lymphocytes 03/01/2019 N2N/CCD Import Blood lymphocytes 2.3 1.0- 4.8 automated count automated count 10^3/ul (number/volume) (number/volume) Blood monocytes 03/01/2019 N2N/CCD Import Blood monocytes 0.6 0-0.8 automated count automated count 10^3/ul (number/volume) (number/volume) Automated blood 03/01/2019 N2N/CCD Import Automated blood 0.1 0-0.6 eosinophil count eosinophil count 10^3/ul (number/volume) (number/volume) Automated blood 03/01/2019 N2N/CCD Import Automated blood 0.1 0-0.2 basophil count basophil count 10^3/ul (number/volume) (number/volume) Blood nucleated 03/01/2019 N2N/CCD Import Blood nucleated 0.0 erythrocytes erythrocytes 10^3/ul automated count automated count (numb (number/volume) Automated blood 03/01/2019 N2N/CCD Import Automated blood 54.8 % neutrophils/100 neutrophils/100 leukocytes leukocytes Automated blood 03/01/2019 N2N/CCD Import Automated blood 33.2 % lymphocytes/100 lymphocytes/100 leukocytes leukocytes Automated blood 03/01/2019 N2N/CCD Import Automated blood 9.3 % monocytes/100 monocytes/100 leukocytes leukocytes Automated blood 03/01/2019 N2N/CCD Import Automated blood 1.5 % eosinophils/100 eosinophils/100 leukocytes leukocytes Automated blood 03/01/2019 N2N/CCD Import Automated blood 1.2 % basophils/100 basophils/100 leukocytes leukocytes Automated blood 03/01/2019 N2N/CCD Import Automated blood 0.0 nucleated nucleated erythrocytes erythrocytes detection detection Serum or plasma 01/31/2019 N2N/CCD Import Serum or plasma 0.00 troponin i.cardiac troponin i.cardiac ng/mL measurement (ma measurement (mass/volume) Whole blood 01/30/2019 N2N/CCD Import Whole blood 0.96 0.82-1. international international 09 normalized ratio normalized ratio (Inr) (Inr) Serum or plasma 01/30/2019 N2N/CCD Import Serum or plasma 138 135-145 sodium measurement sodium measurement mmol/L (moles/volume) (moles/volume) Serum or plasma 01/30/2019 N2N/CCD Import Serum or plasma 3.9 3.5-5.0 potassium potassium mmol/L measurement measurement (moles/volum (moles/volume) Serum or plasma 01/30/2019 N2N/CCD Import Serum or plasma 104 101-111 chloride chloride mmol/L measurement measurement (moles/volume (moles/volume) Serum or plasma 01/30/2019 N2N/CCD Import Serum or plasma 24 mmol/L 22- 32 carbon dioxide, carbon dioxide, total measurement total measurement (moles/volume) Serum or plasma 01/30/2019 N2N/CCD Import Serum or plasma 10 mmol/L 2- 11 anion gap anion gap Serum glucose 01/30/2019 N2N/CCD Import Serum glucose 108 mg/dL 70-100 measurement measurement (mass/volume) (mass/volume) Serum or plasma 01/30/2019 N2N/CCD Import Serum or plasma 15 mg/dL 6-24 urea nitrogen urea nitrogen measurement measurement (mass/vo (mass/volume) Serum or plasma 01/30/2019 N2N/CCD Import Serum or plasma 1.19 0.67-1. creatinine creatinine mg/dL 17 measurement measurement (mass/volum (mass/volume) Serum or plasma 01/30/2019 N2N/CCD Import Serum or plasma 12.6 8-20 urea urea nitrogen/creatinine nitrogen/creatinine ratio ratio Serum or plasma 01/30/2019 N2N/CCD Import Serum or plasma 9.9 mg/dL 8.6- 10. calcium measurement calcium measurement 3 (mass/volume) (mass/volume) Serum total protein 01/30/2019 N2N/CCD Import Serum total protein 6.9 g/dL 6.4-8.9 measurement measurement (mass/volume) (mass/volume) Serum or plasma 01/30/2019 N2N/CCD Import Serum or plasma 4.6 g/dL 3.2- 5.2 albumin measurement albumin measurement by bromocresol by bromocresol green (BCG) dye binding method (ma Lab Results 01/30/2019 N2N/CCD Import Globulin 2.3 g/dL 2-4 Serum or plasma 01/30/2019 N2N/CCD Import Serum or plasma 2.0 1-3 albumin/globulin albumin/globulin mass ratio mass ratio Serum or plasma 01/30/2019 N2N/CCD Import Serum or plasma 0.70 0.2-1.0 total bilirubin total bilirubin mg/dL measurement (mass/ measurement (mass/volume) Serum or plasma 01/30/2019 N2N/CCD Import Serum or plasma 52 U/L 34-104 alkaline alkaline phosphatase phosphatase measurement ( measurement (enzymatic activity/volume) Serum or plasma 01/30/2019 N2N/CCD Import Serum or plasma 30 U/L 7-52 alanine alanine aminotransferase aminotransferase measureme measurement (enzymatic activity/volume) Serum or plasma 01/30/2019 N2N/CCD Import Serum or plasma 24 U/L 13-39 aspartate aspartate aminotransferase aminotransferase measure measurement (enzymatic activity/volume) Estimated 01/30/2019 N2N/CCD Import Estimated 62.1 glomerular glomerular filtration rate filtration rate (GFR) non-Afr (GFR) non- Lab Results 01/30/2019 N2N/CCD Import Estimated GFR 75.2 () Serum or plasma 01/30/2019 N2N/CCD Import Serum or plasma 25 pg/mL <100 natriuretic peptide natriuretic peptide B measurement B measurement (mass/volume) Automated blood 01/30/2019 N2N/CCD Import Automated blood 7.7 3.5-10. leukocytes count leukocytes count 10^3/uL 8 corrected for nuc corrected for nucleated erythrocytes (number/volume) Automated blood 01/30/2019 N2N/CCD Import Automated blood 5.12 4.18-5. erythrocyte count erythrocyte count 10^6/uL 48 (number/volume) (number/volume) Blood hemoglobin 01/30/2019 N2N/CCD Import Blood hemoglobin 15.1 g/dL 14.0-18 measurement measurement .0 (mass/volume) (mass/volume) Automated blood 01/30/2019 N2N/CCD Import Automated blood 45 % 42-52 hematocrit hematocrit (percentage) (percentage) Automated 01/30/2019 N2N/CCD Import Automated 88 fL 80-94 erythrocyte mean erythrocyte mean corpuscular volume corpuscular volume Automated 01/30/2019 N2N/CCD Import Automated 30 pg 27-31 erythrocyte mean erythrocyte mean corpuscular corpuscular hemoglobin hemoglobin (mass per erythrocyte) Automated 01/30/2019 N2N/CCD Import Automated 33 g/dL 31-36 erythrocyte mean erythrocyte mean corpuscular corpuscular hemoglobin hemoglobin concentration measurement (mass/vol Automated 01/30/2019 N2N/CCD Import Automated 14 % 10-15 erythrocyte erythrocyte distribution width distribution width ratio ratio Automated blood 01/30/2019 N2N/CCD Import Automated blood 209 150-450 platelet count platelet count 10^3/uL (number/volume) (number/volume) Automated blood 01/30/2019 N2N/CCD Import Automated blood 6.6 fL 7.4- 10. platelet mean platelet mean 4 volume measurement volume measurement Lymphocyte 01/30/2019 N2N/CCD Import Lymphocyte 4.0 1.5-7.7 proliferation test proliferation test 10^3/ul Blood lymphocytes 01/30/2019 N2N/CCD Import Blood lymphocytes 2.8 1.0- 4.8 automated count automated count 10^3/ul (number/volume) (number/volume) Blood monocytes 01/30/2019 N2N/CCD Import Blood monocytes 0.8 0-0.8 automated count automated count 10^3/ul (number/volume) (number/volume) Automated blood 01/30/2019 N2N/CCD Import Automated blood 0.1 0-0.6 eosinophil count eosinophil count 10^3/ul (number/volume) (number/volume) Automated blood 01/30/2019 N2N/CCD Import Automated blood 0.1 0-0.2 basophil count basophil count 10^3/ul (number/volume) (number/volume) Blood nucleated 01/30/2019 N2N/CCD Import Blood nucleated 0.0 erythrocytes erythrocytes 10^3/ul automated count automated count (numb (number/volume) Automated blood 01/30/2019 N2N/CCD Import Automated blood 51.7 % neutrophils/100 neutrophils/100 leukocytes leukocytes Automated blood 01/30/2019 N2N/CCD Import Automated blood 35.8 % lymphocytes/100 lymphocytes/100 leukocytes leukocytes Automated blood 01/30/2019 N2N/CCD Import Automated blood 10.5 % monocytes/100 monocytes/100 leukocytes leukocytes Automated blood 01/30/2019 N2N/CCD Import Automated blood 1.2 % eosinophils/100 eosinophils/100 leukocytes leukocytes Automated blood 01/30/2019 N2N/CCD Import Automated blood 0.8 % basophils/100 basophils/100 leukocytes leukocytes Automated blood 01/30/2019 N2N/CCD Import Automated blood 0.1 nucleated nucleated erythrocytes erythrocytes detection detection Procedures Description No Information Available Medical Devices Description No Information Available Encounters Description No Information Available Assessments Date Code Description Provider 03/07/2019 K21.9 Gastro-esophageal reflux disease without Faby Washington PA-C esophagitis Plan of Treatment Future Appointment(s):04/09/2019 1:00 pm - Faby Washington PA-C at [facility]03/07/2019 - ANTONINO Garrett CK21.9 Gastro-esophageal reflux disease without esophagitisNew Medication: Pantoprazole Sodium 20 mg - 1 by mouth bid at least 30min before meals Functional Status Description No Information Available Mental Status Description No Information Available Referrals Description No Information Available
--- NOTE | 2019-03-31 23:20 | ED ---
HPI Chest Pain - HPI Summary HPI Summary: This patient is a 59 year old M presenting to [facility] with a chief complaint of pressure in his chest since prior to arrival. He reports he felt faint, SOB, and his heart rate was high. Pt has PMHx of Cardiomyopathy in August and had a cardiac catheterization done. Pt took a NITRO on the way here, which improved the chest pressure. Patient reports heart burning, burning pain near right neck (which has lasted for about 3 days), and palpitations. Patient denies nausea. Per triage, the patient rates the pain 8/10 in severity. Pt recently had a change in medication. Pt takes aspirin. - History of Current Complaint Chief Complaint: EDDysrhythmPalp Time Seen by Provider: 03/31/19 22:44 Hx Obtained From: Patient Onset/Duration: Still Present Timing: Constant Initial Severity: Severe Current Severity: Severe Pain Intensity: 8 Pain Scale Used: 0-10 Numeric Chest Pain Location: Diffuse Chest Pain Radiates: Yes Chest Pain Radiates To:: Neck Character: Burning, Pressure/Squeezing Aggravating Factor(s): Nothing Alleviating Factor(s): NTG 123 Associated Signs and Symptoms: Positive: Chest Pain, Shortness of Breath, Palpitations. Negative: Nausea - Additional Pertinent History Primary Care Physician: [id number] - Allergy/Home Medications Allergies/Adverse Reactions: Allergies Allergy/AdvReac Type Severity Reaction Status Date / Time hydromorphone Allergy Severe Altered Verified 03/01/19 05:58 Mental Status cephalexin Allergy Intermediate Hives Verified 03/01/19 05:58 erythromycin base Allergy Intermediate Hives Verified 03/01/19 05:58 Penicillins Allergy Intermediate Hives Verified 03/01/19 05:58 Tetracyclines Allergy Intermediate Hives Verified 03/01/19 05:58 cortisone Allergy CARDIOMYOPA Verified 03/01/19 05:58 THY Iodinated Contrast Media Allergy See Comment Verified 03/01/19 05:58 [Iodinated Contrast- Oral and IV Dye] sumatriptan Allergy Unknown Verified 03/01/19 05:58 Reaction Details PMH/Surg Hx/FS Hx/Imm Hx Endocrine/Hematology History: Reports: Hx Thyroid Disease - h/o thyroid storm Denies: Hx Anticoagulant Therapy, Hx Diabetes, Other Endocrine/Hematological Disorders Cardiovascular History: Reports: Hx Atrial Fibrillation, Hx Hypercholesterolemia , Hx Hypertension, Other Cardiovascular Problems/Disorders - ATRIAL FIB 2000 2ndry to thyroid storm Denies: Hx Angina, Hx Coronary Artery Disease, Hx Myocardial Infarction, Hx Pacemaker/ICD, Hx Valvular Heart Disease Respiratory History: Reports: Hx Asthma - exercise induced, Hx Sleep Apnea - CPAP - no humidification (working on it)., Other Respiratory Problems/Disorders - PN X 2 WINTER 2011 Denies: Hx Chronic Obstructive Pulmonary Disease (COPD) GI History: Reports: Hx Gastroesophageal Reflux Disease, Hx Hiatal Hernia, Other GI Disorders - Hx gastritis Denies: Hx Ulcer History: Reports: Hx Kidney Stones Denies: Hx Renal Disease, Other Problems/Disorders Musculoskeletal History: Reports: Hx Arthritis - 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 , arthritis in neck, Other Musculoskeletal History - DJD Sensory History: Reports: Hx Contacts or Glasses Denies: Hx Hearing Aid, Other Sensory Impairments Opthamlomology History: Reports: Hx Contacts or Glasses Denies: Other Sensory Impairments Neurological History: Reports: Hx Headaches - "sinus headaches", Hx Migraine Denies: Hx Dementia, Hx Seizures, Other Neuro Impairments/Disorders Psychiatric History: Reports: Hx Anxiety, Hx Panic Disorder Denies: Hx Substance Abuse, Other Psychiatric Issues/Disorders - Surgical History Surgery Procedure, Year, and Place: [facility] - Immunization History Date of Tetanus Vaccine: utd Date of Influenza Vaccine: fall 2017 Infectious Disease History: No Infectious Disease History: Reports: Hx Clostridium Difficile, Hx Hepatitis - 1985, Hx Shingles Denies: Hx Human Immunodeficiency Virus (HIV), Hx Tuberculosis, Traveled Outside the [place] in Last 30 Days - Family History Known Family History: Positive: Hypertension - Social History Alcohol Use: None Alcohol Amount: quit 1985 Hx Substance Use: Yes - none currently Substance Use Type: Reports: None Substance Use Comment - Amount & Last Used: quit 1985 Hx Tobacco Use: Yes - not currently Smoking Status (MU): Former Smoker Have You Smoked in the Last Year: No - Additional Comments History Additional Comments: Home Medications Medication Instructions Recorded Confirmed Type Epleronone (NF) [Inspra (NF)] 50 mg PO BEDTIME 11/16/17 03/31/19 History Magnesium Oxide TAB* [MagOx 400 400 mg PO BID 11/16/17 03/31/19 History TAB*] Rosuvastatin (NF) [Crestor (NF)] 2.5 mg PO DAILY 11/16/17 03/31/19 History Sertraline* [Zoloft*] 50 mg PO DAILY 11/16/17 03/31/19 History amLODIPine TAB* [Norvasc 5 mg TAB*] 2.5 mg PO BID 11/16/17 03/31/19 History Fluticasone NASAL SPRAY 50MCG* 1 spray BOTH NARES DAILY #1 btl 12/30/17 Rx [Flonase NASAL SPRAY 50MCG*] Ibuprofen TAB* [Motrin TAB* 600 MG] 600 mg PO Q8H PRN #20 tab 12/30/17 03/31/19 Rx Acetaminophen [Acetaminophen Extra 500 mg PO DAILY PRN 04/09/18 03/31/19 History Strength] Aspirin [Aspir-Low] 81 mg PO DAILY WITH MEAL 07/18/18 03/31/19 History Ondansetron ODT TAB* [Zofran 4 MG 4 mg PO Q6H PRN #10 tab.odt 07/18/18 03/31/19 Rx Odt TAB*] Riboflavin (Vitamin B2) 400 mg PO DAILY WITH MEAL 07/18/18 03/31/19 History [Riboflavin] Vitamin B Complex [Super B-50 1 each PO DAILY WITH MEAL 07/18/18 03/31/19 History Complex] Sertraline* [Zoloft*] 100 mg PO BEDTIME 09/22/18 03/31/19 History Levothyroxine Sodium 200 mcg PO DAILY 09/26/18 03/31/19 History Metoprolol Succinate XL TAB* 12.5 mg PO DAILY #30 tab.xl 09/26/18 03/31/19 Rx [Toprol XL TAB*] Sucralfate SUSP 1 gm PO QID #400 ml 03/01/19 03/31/19 Rx Review of Systems Positive: Other - burning in throat Positive: Palpitations, Chest Pain Positive: Shortness Of Breath All Other Systems Reviewed And Are Negative: Yes Physical Exam - Summary Physical Exam Summary: General: Morbidly obese male. No acute distress. HEENT: Normocephalic, Atraumatic. Eyes: Conjuctiva normal, PERRL. Oropharynx: Clear, mucous membranes moist, (-) exudates. Neck: Soft, FROM, (-) lymphadenopathy, (-) thyromegaly, (-) JVD. Cardiovascular: Normal sinus rhythm, (-) murmur. Lungs: Clear to auscultation bilaterally (-) wheezes, (-) rales, (-) rhonchi. Abdomen: Soft, non-tender, non-distended, (-) organomegaly, normal bowel sounds. Back: (-) CVA tenderness Extremities: No edema. Skin: Warm, dry, (-) rash. Neuro: Alert and oriented x3, no focal deficits. Psychiatric: Mood normal, affect normal. Triage Information Reviewed: Yes Vital Signs On Initial Exam: Initial Vitals Temp Pulse Resp BP Pulse Ox 98.0 F 83 18 163/77 95 03/31/19 22:18 03/31/19 22:18 03/31/19 22:18 03/31/19 22:18 03/31/19 22:18 Vital Signs Reviewed: Yes Procedures - Sedation Patient Received Moderate/Deep Sedation with Procedure: No Diagnostics - Vital Signs Vital Signs Temp Pulse Resp BP Pulse Ox 03/31/19 22:18 98.0 F 83 18 163/77 95 - Laboratory Result Diagrams: 03/31/19 23:06 03/31/19 23:06 Lab Statement: Any lab studies that have been ordered have been reviewed, and results considered in the medical decision making process. - Radiology CXR Radiology Interpretation Completed By: ED Physician Summary of Radiographic Findings: CXR reveals, per ED physician, No acute change. No obvious infiltrate. No pleural effusion. - EKG 2223 Cardiac Rate: NL EKG Rhythm: Sinus Rhythm Summary of EKG Findings: EKG at 2223 reveals normal sinus rhythm with rate of 80 BPM, no acute changes, no ischemic changes. This EKG was reviewed and interpreted by Dr. Fajardo. Re-Evaluation - Re-Evaluation First Eval Re-Evaluation Time: 03:43 Comment: I have discussed results with the patient. Discussed symptoms that warrant immediate return to ED Chest Pain Course/Dx - Course Course Of Treatment: 59 year old male presents with palpitations. patient with symptoms for days. improved with nitro en route. recent NH and cath. workup essentially negative including serial troponins. patient very anxious, given off work one day. follow up with pcp. follow up sooner for any worsening symptoms. - Diagnoses Provider Diagnoses: Palpitations Discharge ED - Sign-Out/Discharge Documenting (check all that apply): Patient Departure - Discharge - Discharge Plan Condition: Stable Disposition: HOME Patient Education Materials: Heart Palpitations (ED) Forms: *Work Release Referrals: Félix Marcus, RAIL SPECIALIST [Primary Care Provider] - 3 Days Additional Instructions: Please follow up with your primary care physician within three days. Please return to ED for any new or worsening symptoms. - Billing Disposition and Condition Condition: STABLE Disposition: Home - Attestation Statements Document Initiated by Noah: Yes Documenting Scribe: Anahi Coello Provider For Whom Noah is Documenting (Include Credential): Dr. Keya Fajardo MD Scribe Attestation: Anahi Couch, scribed for Dr. Keya Fajardo MD on 04/04/19 at 1914. Scribe Documentation Reviewed: Yes Provider Attestation: The documentation as recorded by the Anahi hobbs accurately reflects the service I personally performed and the decisions made by me, Dr. Keya Fajardo MD Status of Scribe Document: Viewed
[2019-03-31 23:24] LABS: ABS Eosinophils 0.1 10^3/ul (0-0.6); ABS Lymphocytes 1.7 10^3/ul (1.0-4.8); ABS Monocytes 0.6 10^3/ul (0-0.8); ABS Neutrophils 4.8 10^3/ul (1.5-7.7); Hematocrit 43 % (42-52); Hemoglobin 14.9 g/dL (14.0-18.0); Lymphocyte % 23.6 %; Mean Corpuscular HGB Conc 35 g/dL (31-36); Mean Corpuscular Hemoglobin 31 pg (27-31); Mean Corpuscular Volume 87 fL (80-94); Mean Platelet Volume 6.8 fL (7.4-10.4); Platelet Count 192 10^3/uL (150-450); Red Blood Count 4.88 10^6 /uL (4.18-5.48); Red Cell Distribution Width 14 % (10-15); White Blood Count 7.2 10^3/uL (3.5-10.8)
[2019-03-31 23:42] LABS: Albumin 4.5 g/dL (3.2-5.2); BUN/Creatinine Ratio 11.1 (8-20); Calcium 9.7 mg/dL (8.6-10.3); EGFR African American 84.1 (>60); EGFR Non-African American 69.5 (>60); Globulin 2.2 g/dL (2-4); Potassium 3.9 mmol/L (3.5-5.0); Total Bilirubin 0.8 mg/dL (0.2-1.0); Total Protein 6.7 g/dL (6.4-8.9)
[2019-03-31 23:44] LABS: Troponin I 0.01 ng/mL (<0.03)
[2019-04-01] MEDS ORDERED: Ondansetron ODT TAB* 4 MG PO PRN (03:44)
[2019-04-01] MEDS ORDERED: Ibuprofen TAB* 600 MG PO PRN (03:44)
[2019-04-01] MEDS ORDERED: Acetaminophen TAB* 325 MG PO PRN (03:44)
[2019-04-01 04:00] VITALS: BP 158/75
[2019-04-01] MEDS ORDERED: Aspirin EC TAB* 81 MG TAB.EC PO SCH (08:30)
[2019-04-01] MEDS ORDERED: RIBOFLAVIN 400 MG PO SCH (08:30)
[2019-04-01] MEDS ORDERED: VITAMIN B COMPLEX PO SCH (08:30)
[2019-04-01] MEDS ORDERED: Magnesium Oxide TAB* 400 MG PO SCH (09:00)
[2019-04-01] MEDS ORDERED: amLODIPine TAB* 5 MG PO SCH (09:00)
[2019-04-01] MEDS ORDERED: Sucralfate SUSP 1 GM/10 ml 10 ML UDC PO SCH (09:00)
[2019-04-01] MEDS ORDERED: Sertraline* 100 MG TAB PO SCH ×2 (09:00→21:00)
[2019-04-01] MEDS ORDERED: Metoprolol Succinate XL TAB* 25 MG PO SCH (09:00)
[2019-04-01] MEDS ORDERED: LEVOTHYROXINE SODIUM 200 MCG PO SCH (09:00)
[2019-04-01] MEDS ORDERED: Atorvastatin* 10 MG TAB PO SCH (09:00)
[2019-04-01] MEDS ORDERED: Fluticasone NASAL SPRAY 50MCG* 16 gm SPRAY BTL BOTH NARES SCH (09:00)
[2019-04-01] MEDS ORDERED: [UNRECOGNIZED DRUG - OTHER] PO SCH (21:00)
== END 2019-04-01 04:03 | disposition home or self-care (01) ==
LOC: ED 22:10
DX: R00.2 Palpitations (principal); R06.02 Shortness of breath; I48.91 Unspecified atrial fibrillation; E78.00 Pure hypercholesterolemia, unspecified; E03.9 Hypothyroidism, unspecified; I10 Essential (primary) hypertension; K21.9 Gastro-esophageal reflux disease without esophagitis; F41.9 Anxiety disorder, unspecified; Z87.891 Personal history of nicotine dependence; Z79.82 Long term (current) use of aspirin; Z79.890 Hormone replacement therapy; Z79.899 Other long term (current) drug therapy; Z88.5 Allergy status to narcotic agent; Z88.0 Allergy status to penicillin; Z88.8 Allergy status to other drugs, medicaments and biological substances; Z87.442 Personal history of urinary calculi; Z88.1 Allergy status to other antibiotic agents; Z91.041 Radiographic dye allergy status
CPT/HCPCS: 36415; 71045; 80053; 83605; 83880; 84484; 85025; 85610; 93005; 99283

== ENCOUNTER 2019-05-15 03:09 | Emergency (ER) | payer OTHER ==
--- NOTE | 2019-05-15 03:27 | ED ---
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 He states he noticed his HR jump from 50s to 90s, and felt his heart flopping. He also mentions his abd feels bubbly, he feels slightly bloated, and that hes a bit lightheaded. He denies chest pain or shortness of breath. Recently wore Holter monitor to assess heart rhythm, and recent increase of Levothyroxine. - History of Current Complaint Chief Complaint: EDDysrhythmPalp Time Seen by Provider: 05/15/19 03:14 Hx Obtained From: Patient Onset/Duration: Sudden Onset, Lasting Minutes, Still Present Timing: Constant Severity Initially: Moderate Severity Currently: Mild Character: Pounding Aggravating: Nothing Alleviating: Nothing Associated Signs & Symptoms: Lightheadedness - Allergy/Home Medications Allergies/Adverse Reactions: Allergies Allergy/AdvReac Type Severity Reaction Status Date / Time hydromorphone Allergy Severe Altered Verified 05/15/19 03:12 Mental Status cephalexin Allergy Intermediate Hives Verified 05/15/19 03:12 erythromycin base Allergy Intermediate Hives Verified 05/15/19 03:12 Penicillins Allergy Intermediate Hives Verified 05/15/19 03:12 Tetracyclines Allergy Intermediate Hives Verified 05/15/19 03:12 cortisone Allergy CARDIOMYOPA Verified 05/15/19 03:12 THY Iodinated Contrast Media Allergy See Comment Verified 05/15/19 03:12 [Iodinated Contrast- Oral and IV Dye] sumatriptan Allergy Unknown Verified 05/15/19 03:12 Reaction Details Home Medications: Home Medications Famotidine TAB* [Pepcid 20 MG TAB*] 20 mg PO DAILY 05/15/19 [History Confirmed 05/15/19] PMH/Surg Hx/FS Hx/Imm Hx Previously Healthy: Yes Endocrine/Hematology History: Reports: Hx Thyroid Disease - h/o thyroid storm Denies: Hx Anticoagulant Therapy, Hx Diabetes, Other Endocrine/Hematological Disorders Cardiovascular History: Reports: Hx Atrial Fibrillation, Hx Hypercholesterolemia , Hx Hypertension, Other Cardiovascular Problems/Disorders - ATRIAL FIB 2000 2ndry to thyroid storm Denies: Hx Angina, Hx Coronary Artery Disease, Hx Myocardial Infarction, Hx Pacemaker/ICD, Hx Valvular Heart Disease Respiratory History: Reports: Hx Asthma - exercise induced, Hx Sleep Apnea - CPAP - no humidification (working on it)., Other Respiratory Problems/Disorders - PN X 2 WINTER 2011 Denies: Hx Chronic Obstructive Pulmonary Disease (COPD) GI History: Reports: Hx Gastroesophageal Reflux Disease, Hx Hiatal Hernia, Other GI Disorders - Hx gastritis Denies: Hx Ulcer History: Reports: Hx Kidney Stones Denies: Hx Renal Disease, Other Problems/Disorders Musculoskeletal History: Reports: Hx Arthritis - 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 , arthritis in neck, Other Musculoskeletal History - DJD Sensory History: Reports: Hx Contacts or Glasses Denies: Hx Hearing Aid, Other Sensory Impairments Opthamlomology History: Reports: Hx Contacts or Glasses Denies: Other Sensory Impairments Neurological History: Reports: Hx Headaches - "sinus headaches", Hx Migraine Denies: Hx Dementia, Hx Seizures, Other Neuro Impairments/Disorders Psychiatric History: Reports: Hx Anxiety, Hx Panic Disorder Denies: Hx Substance Abuse, Other Psychiatric Issues/Disorders - Surgical History Surgery Procedure, Year, and Place: [facility] - Immunization History Date of Tetanus Vaccine: utd Date of Influenza Vaccine: fall 2017 Infectious Disease History: No Infectious Disease History: Reports: Hx Clostridium Difficile, Hx Hepatitis - 1985, Hx Shingles Denies: Hx Human Immunodeficiency Virus (HIV), Hx Tuberculosis, Traveled Outside the [place] in Last 30 Days - Family History Known Family History: Positive: Hypertension - Social History Alcohol Use: None Alcohol Amount: quit 1985 Hx Substance Use: Yes - none currently Substance Use Type: Reports: None Substance Use Comment - Amount & Last Used: quit 1985 Hx Tobacco Use: Yes - not currently Smoking Status (MU): Former Smoker Have You Smoked in the Last Year: No Review of Systems Positive: Palpitations. Negative: Chest Pain Negative: Shortness Of Breath Positive: Other - bloated Neurological: Other - lightheaded All Other Systems Reviewed And Are Negative: Yes Physical Exam - Summary Physical Exam Summary: Appearance: Well-appearing, Well-nourished, lying in bed comfortably Skin: Warm, dry, no obvious rash Eyes: sclera anicteric, no conjunctival pallor ENT: mucous membranes moist, pharynx appears normal Neck: Supple, nontender Respiratory: Clear to auscultation, no signs of respiratory distress Cardiovascular: Normal S1, S2. Occasional premature beat, rhythm is otherwise regular. No murmurs. Normal distal pulses at the wrist. Abdomen: Soft, morbidly obese, nontender, normal active bowel sounds present Musculoskeletal: Normal, Strength/ROM Intact Neurological: A&Ox3, awake and alert, mentation is normal, speech is fluent and appropriate Psychiatric: affect is normal, does not appear anxious or depressed Triage Information Reviewed: Yes Vital Signs On Initial Exam: Initial Vitals Temp Pulse Resp BP Pulse Ox 98.2 F 94 15 189/86 97 05/15/19 03:10 05/15/19 03:10 05/15/19 03:10 05/15/19 03:10 05/15/19 03:10 Vital Signs Reviewed: Yes Procedures - Sedation Patient Received Moderate/Deep Sedation with Procedure: No Diagnostics - Vital Signs Vital Signs Temp Pulse Resp BP Pulse Ox 05/15/19 03:10 98.2 F 94 15 189/86 97 - Laboratory Result Diagrams: 05/15/19 03:35 05/15/19 03:35 Lab Statement: Any lab studies that have been ordered have been reviewed, and results considered in the medical decision making process. - Radiology CXR Radiology Interpretation Completed By: ED Physician Summary of Radiographic Findings: No acute process, pending official radiology report. - EKG 0322 Cardiac Rate: NL - 78 EKG Rhythm: Sinus Rhythm ST Segment: Normal Ectopy: PVCs Summary of EKG Findings: EKG at 0322 shows NSR at 78 BPM with frequent PVCs. Otherwise, P waves, QRS complex, and T waves are within normal limits, T waves and intervals are normal. This is a normal EKG. ED physician has reviewed and interpreted this EKG. Course/Dx - Course Course Of Treatment: Pt is a 59 y/o M presenting to the ED with a chief complaint of palpitations initially onset about 30-45min FLATBED STITCHER while he was watching television. He states he noticed his HR jump from 50s to 90s, and felt his heart flopping. He also mentions his abd feels bubbly, he feels slightly bloated, and that hes a bit lightheaded. He denies chest pain or shortness of breath. Pt's exam is nml aside from a morbidly obese abdomen and an occasional premature beat in his cardiac rhythm, but it is otherwise regular. EKG at 0322 shows NSR at 78 BPM with frequent PVCs. Otherwise, P waves , QRS complex, and T waves are within normal limits, T waves and intervals are normal. This is a normal EKG. ED physician has reviewed and interpreted this EKG. CXR shows no acute process, pending official radiology report. Pt will be discharged with dx of heart palpitations and instructed to f/u with his PCP. He is stable and agreeable with this plan. - Diagnoses Provider Diagnoses: Heart palpitations Discharge ED - Sign-Out/Discharge Documenting (check all that apply): Patient Departure - Discharge Plan Condition: Good Disposition: HOME Patient Education Materials: Heart Palpitations (ED) Referrals: Rob Dozier MD [Medical Doctor] - 1 Week - Billing Disposition and Condition Condition: GOOD Disposition: Home - Attestation Statements Document Initiated by Noah: Yes Documenting Scribe: Amira Montano Provider For Whom Noah is Documenting (Include Credential): Lucio Rodgers MD. Scribe Attestation: Amira Couch scribed for Lucio Rodgers MD. on 05/16/19 at 0537. Scribe Documentation Reviewed: Yes Provider Attestation: The documentation as recorded by the scribeAmira accurately reflects the service I personally performed and the decisions made by Lucio caruso MD. Status of Scribe Document: Viewed
--- OUTSIDE RECORDS SUMMARY | 2019-05-15 03:45 | XMS REPORT | Continuity of Care Document ---
:1960 External Reference #:[id number] Author Name Jayshree Rodríguez N.P. (transmitted by agent of provider Mariia Brantley) Address [address] [place] [address] Care Team Providers Name Role Phone Lennox Anderson MD - Urology Care Team Information Mathematician [phone] [facility] - Care Team Information Mathematician State Game Protector Benjamin Kemp MD - Neurology Care Team Information Mathematician [phone] Laura Wu MD - Care Team Information Mathematician [phone] Dermatology Sarah Alvarez, PhD. - Clinical Care Team Information Mathematician Rei Juares MD - Ophthalmology Care Team Information Mathematician [phone] Mk Lowe MD - Care Team Information Mathematician [phone] Otolaryngology Yovani Veliz MD - Infectious Care Team Information Mathematician Disease Darius Corral MD - Internal Care Team Information Mathematician Medicine Lucrecia Dent MD - Internal Medicine Care Team Information Mathematician Problems Active Problems Provider Date Obstructive sleep apnea of adult Tabitha Lopez DNP, RN, Onset: 07/31/2014 [facility] Essential hypertension Akin Kang M.D. Onset: 03/19/2016 [...] Onset: 05/26/2017 Chest pain Selene Mei MD, [facility], Onset: 10/03/2018 FSCAI Derangement of knee [...] Marijuana quit 1985 regularly Smoking Status Reviewed: 04/03/19 Heavy tobacco smoker (more than 10 cigarettes/day) Exercise Type/Frequency Exercises sporadically Allergies, Adverse Reactions, Alerts Active Allergies Reaction Severity Comments Date Tricyclic Antidepressants 07/31/2014 Penicillin Anaphylaxis Severe 09/11/2014 Keflex Anaphylaxis Severe 09/11/2014 Tetracycline Anaphylaxis Severe 09/11/2014 Erythromycin Urticaria Moderate 09/11/2014 Imitrex 05/26/2017 Medications Active Medications SIG Qnty Indications Ordering Date Provider Acetaminophen-Codeine 1-2 tablets every 28tabs M25.562 Félix Marcus NP #3 12 hours as needed 300-30mg Tablets Sertraline HCL take 1 tab po bid 45tabs F41.9 Félix Marcus NP 10/09/2018 100mg Tablets Nitroglycerin 1 sl q5 mins x3 as [...] E66.01 Rob Yan 05/27/2016 toe light Balbir Dozire Misc compression -please measure for size Ketoconazole apply twice a day 120gm B35.6 Félix Marcus NP 03/19/2016 2% Cream as needed Amlodipine Besylate 1 tab twice daily 180tabs I10 Jayshree Rodríguez, 2014 N.P. 2.5mg Tablets [employer] 1 pair daily as 2Pair I87.2 Rob Yan 03/12/2015 15-20MMHG/Knee needed Balbir Dozier High/Closed Toe/Large Misc Magnesium Oxide 1 by mouth twice 90tabs Rob Yan 11/19/2014 400mg daily Balbir Dozier Tablets Inspra 2 by mouth every 180tabs Rob Yan 11/01/2014 25mg Tablets day Balbir Dozier Levothyroxine Sodium take 1 tablet by 90tabs Félix Marcus NP 07/30/2014 mouth once daily 200mcg Tablets Aspir-81 1 by mouth every Unknown 07/30/2014 81mg Tablets day Gas-X Extra Strength one cap by mouth Unknown every 6 hours as 125mg Capsules needed for abdominal pain Stress 500 PO once daily Unknown B-Complex/Zinc Tablets Acetaminophen 1 gm po prn Unknown 500mg Tablets Vitamin D3 1 tablet daily Unknown 2000Iu Guaifenesin 10 cc every 4 hrs Unknown as needed Riboflavin 1 po qd, pt to Unknown 400mg slowly titrate Capsules dose Metoprolol Succinate 1/2 tablet by 30tabs Rob Yan ER mouth every day Balbir Dozier 25mg Tablets ER 24HR Carafate 1 gram (10 ml) Unknown 1GM/10ML four times per day Suspension on empty stomach as needed History Medications Pantoprazole Sodium 1 by mouth every 30tabs Félix Marcus NP 03/05/2019 - day 04/02/[address] Berry apply 2 grams of 300gm M25.562 Félix Marcus NP 11/08/2018 - 1% Gel gel twice daily 04/02/2019 to the affected areas Sertraline HCL take 1 tablet by 90tabs F41.9 Félix Marcus NP 10/09/2018 - 25mg mouth every day 04/02/2019 Tablets in addition to 150mg Protonix 1 by mouth every 30tabs Félix Marcus NP 10/09/2018 - 20mg Tablets day 03/05/2019 Medications Administered in Office Medication SIG Qnty Indications Ordering Provider Date Depomedrol 40MG RAKESH Mcmullen 09/21/2018 Injection Immunizations CPT Code Status Date Vaccine Lot # [id number] Given 02/21/2018 Influenza Virus Vaccine, Quadrivalent, Split, Preservative Free [id number] Given 07/31/2014 Fluvirin Im 3Yrs And Older Vital Signs Date Vital Result Comment 04/03/2019 11:43am Height 71 inches 5'11" Weight 358.00 lb no shoes Heart Rate 80 /min BP Systolic Sitting 130 mmHg lue reg cuff BP Diastolic Sitting 68 mmHg lue reg cuff BP Systolic Standing 130 mmHg lue reg cuff BP Diastolic Standing 64 mmHg lue reg cuff Respiratory Rate 14 /min BMI (Body Mass Index) 49.9 kg/m2 Ejection Fraction 55-60% echo. 10/19/18 02/01/2019 1:47pm Height 71 inches 5'11" Heart Rate 89 /min BP Systolic 128 mmHg BP Diastolic 80 mmHg Respiratory Rate 18 /min Body Temperature 98.6 F Pain Level 5 Results Test Acquired Date Facility Test Result H/L Range Note Laboratory test 04/01/2019 [facility] Troponin-I 0.00 ng/mL < 0.03 1 finding [address] [facility] ([facility]) [place] [address] [phone] Inr/Protime 03/31/2019 [facility] Inr 1.00 Normal 0.82-1.09 2 [address] [place] [address] [phone] Laboratory test 03/31/2019 [facility] Lactic Acid 1.9 mmol/L Normal 0.5-2.0 3 finding [address] [place] [address] [phone] Comp Metabolic 03/31/2019 [facility] Sodium 140 mmol/L Normal 135-145 Panel [address] [place] [address] [phone] Potassium 3.9 mmol/L Normal 3.5-5.0 Chloride 103 mmol/L Normal 101-111 Co2 Carbon Dioxide 26 mmol/L Normal 22-32 Anion Gap 11 mmol/L Normal 2-11 Glucose 107 mg/dL High 70-100 Blood Urea Nitrogen 12 mg/dL Normal 6-24 Creatinine 1.08 mg/dL Normal 0.67-1.17 BUN/Creatinine Ratio 11.1 Normal 8-20 Calcium 9.7 mg/dL Normal 8.6-10.3 Total Protein 6.7 g/dL Normal 6.4-8.9 Albumin 4.5 g/dL Normal 3.2-5.2 Globulin 2.2 g/dL Normal 2-4 Albumin/Globulin Ratio 2.0 Normal 1-3 Total Bilirubin 0.80 mg/dL Normal 0.2-1.0 Alkaline Phosphatase 57 U/L Normal 34-104 Alt 31 U/L Normal 7-52 Ast 25 U/L Normal 13-39 Egfr Non- 69.5 >60 Egfr 84.1 >60 4 Laboratory test 03/31/2019 [facility] Troponin-I (TnI) 0.01 ng/ mL <0.03 [address] [place] [address] [phone] B-Type Natriuretic Peptide BNP 46 pg/mL <=100 CBC Auto 03/01/2019 [facility] White Blood 7.0 10^3/uL Normal 3.5-10.[address] [place] [address] [phone] Red Blood Count 5.02 10^6/uL Normal 4.18-5.48 [...] Blood Cells % 0.0 Comp Metabolic 03/01/2019 [facility] Sodium 139 mmol/L Normal 135-[address] [place] [address] [phone] Potassium 3.8 mmol/L Normal 3.5-5.0 Chloride 103 [...] >60 Egfr 75.2 >60 6 Laboratory test 03/01/2019 [facility] Magnesium 1.9 mg/dL Normal 1.9-2.7 finding [address] [place] [address] [phone] Troponin-I (TnI) 0.01 ng/mL <0.04 7 Lactic Acid 1.8 mmol/L Normal 0.5-2.0 8 Laboratory test 01/31/2019 [facility] Troponin-I (TnI) 0.00 ng/ mL <0.04 9 finding [address] [place] [address] [phone] Laboratory test 01/30/2019 [facility] Troponin-I (TnI) 0.00 ng/ mL <0.04 10 finding [address] [place] [address] [phone] B-Type Natriuretic Peptide BNP 25 pg/mL <=100 Comp Metabolic 01/30/2019 [facility] Sodium 138 mmol/L Normal 135-145 Panel [address] [place] [address] [phone] Potassium 3.9 mmol/L Normal 3.5-5.0 Chloride 104 [...] Egfr Non- 62.1 >60 Egfr 75.2 >60 11 Inr/Protime 01/30/2019 [facility] Inr 0.96 Normal 0.82-1.[address] [place] [address] [phone] CBC Auto Diff 01/30/2019 [facility] White Blood 7.7 Normal 3.5 -10.[address] Count 10^3/[place] [address] [phone] Red Blood Count 5.12 10^6/uL Normal 4.18-5.48 [...] % Nucleated Red Blood Cells % 0.1 Laboratory 01/07/2019 [facility] Troponin-I 0.00 <0.04 13 test finding [address] (TnI) ng/[place] [address] [phone] CBC Auto Diff 01/07/2019 [facility] White Blood 6.8 Normal 3.5 -10.[address] Count 10^3/[place] [address] [phone] Red Blood Count 5.17 10^6/uL Normal 4.18-5.48 [...] Red Blood Cells % 0.0 Inr/Protime 01/07/2019 [facility] Inr 1.01 Normal 0.82-1.[address] [place] [address] [phone] Laboratory test 01/07/2019 [facility] B-Type 38 <=[address] Natriuretic pg/[place] [address] Peptide BNP [phone] Comp Metabolic 01/07/2019 [facility] Co2 Carbon 24 Normal 22- [address] Dioxide mmol/[place] [address] [phone] Calcium 9.4 mg/dL Normal 8.6-10.3 Albumin 4.5 [...] Egfr Non- 71.3 >60 Egfr 86.2 >60 15 Sodium 138 mmol/L Normal 135-145 Potassium 3.8 mmol/L Normal 3.5-5.0 Chloride 104 mmol/L Normal 101-111 Anion Gap 10 mmol/L Normal 2-11 Laboratory test 01/07/2019 [facility] Troponin-I (TnI) 0.00 ng/ mL <0.04 16 [facility] [address] [place] [address] [phone] 1 Troponin-I testing on Plasma Separator Tubes (PST) has a known false positive rate of 0.20-0.40%. All positive troponins reflex immediately to secondary confirmatory testing. Using the [email or web address] DxI 800 Access Immunoassay systems, the 99th percentile upper reference limit was demonstrated to be < 0.03 ng/mL. 2 Standard intensity warfarin therapeutic range: 2.0-3.0 High intensity warfarin therapeutic range: 2.5-3.5 3 [facility] Severe Sepsis and Septic Shock Management Bundle Measure requires all lactic acids initially measuring >2.0 mmol/L be repeated. 4 Because ethnic data is not always readily [...] 15-29 5 Kidney failure <15 (or dialysis) 5 Troponin-I testing on Plasma Separator Tubes (PST) has a known false positive rate of 0.20-0.40%. All positive troponins reflex immediately to secondary confirmatory testing. Using the [email or web address] DxI 800 Access Immunoassay systems, the 99th percentile upper reference limit was demonstrated to be < 0.03 ng/mL. 6 Because ethnic data is not always [...] immediately to secondary confirmatory testing. Using the [email or web address] DxI 800 Access Immunoassay systems, the 99th percentile upper reference limit was demonstrated to be < 0.03 ng/mL. 8 [facility] Severe Sepsis and Septic Shock Management Bundle Measure requires all lactic acids initially measuring >2.0 mmol/L be repeated. 9 Troponin-I testing on Plasma Separator Tubes (PST) has a known false positive rate of 0.20-0.40%. All positive troponins reflex immediately to secondary confirmatory testing. Using the [employer] DxI 800 Access Immunoassay systems, the 99th percentile upper reference limit was demonstrated to be < 0.03 ng/mL. 10 Troponin-I testing on Plasma Separator Tubes (PST) has a known false positive rate of 0.20-0.40%. All positive troponins reflex immediately to secondary confirmatory testing. Using the [employer] DxI 800 Access Immunoassay systems, the 99th percentile upper reference limit was demonstrated to be < 0.03 ng/mL. 11 Because ethnic data is not always readily [...] 15-29 5 Kidney failure <15 (or dialysis) 12 Standard intensity warfarin therapeutic range: 2.0-3.0 High intensity warfarin therapeutic range: 2.5-3.5 13 Troponin-I testing on Plasma Separator Tubes (PST) has a known false positive rate of 0.20-0.40%. All positive troponins reflex immediately to secondary confirmatory testing. Using the [employer] DxI 800 Access Immunoassay systems, the 99th percentile upper reference limit was demonstrated to be < 0.03 ng/mL. 14 Standard intensity warfarin therapeutic range: 2.0-3.0 High intensity warfarin therapeutic range: 2.5-3.5 15 Because ethnic data is not always readily [...] 15-29 5 Kidney failure <15 (or dialysis) 16 Troponin-I testing on Plasma Separator Tubes (PST) has a known false positive rate of 0.20-0.40%. All positive troponins reflex immediately to secondary confirmatory testing. Using the [email or web address] DxI 800 Access Immunoassay systems, the 99th percentile upper reference limit was demonstrated to be < 0.03 ng/mL. Procedures Date Code Description Status 04/03/2019 02208 EKG Tracing & Interpretation Completed 10/19/2018 39230 Echocardiogram, Limited Study Completed 10/19/2018 35910 Echocardiogram, Limited Study Completed 10/05/2018 88432 EKG Tracing & Interpretation Completed 05/24/2017 [id number] Diabetic Retinal Eye Exam Completed Medical Devices Description No Information Available Encounters Type Date Location Provider Dx Diagnosis Office Visit 02/01/2019 Joe Joaquin M22.2x2 Patellofemoral 1:30p at [facility] disorders, left knee M25.562 Pain in left knee M54.5 Low back pain Office Visit 01/11/2019 Joe Joaquin M22.2x2 Patellofemoral 2:30p [facility] disorders, left [place] knee 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, left knee M54.5 [...] [facility] apnea (adult) 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) Z68.42 Body mass index (BMI) 45.0-49.9, adult Office Visit 11/20/2018 4:00p [facility] Félxi Marcus NP M25.562 Pain in left Medicine - [facility] knee M54.32 Sciatica, left side M54.5 Low back pain Office Visit 11/08/2018 9:00a [facility] Internal Félix Angeline, F41.9 Anxiety disorder, Medicine - [facility] BUSINESS MANAGEMENT SPECIALIST unspecified I51.81 Takotsubo syndrome M25.562 Pain in left knee Office Visit 10/23/2018 2:00p [facility] Internal Félix Angeline, I51.81 Tak[place]ubo Medicine - [facility] BUSINESS MANAGEMENT SPECIALIST syndrome F41.9 Anxiety disorder, unspecified M25.562 Pain in left knee Office Visit 10/18/2018 [place] Epifanio Joaquin M54.16 Radiculopathy, 3:15p [facility] lumbar region [place] M54.5 Low back pain M25.562 Pain in left knee Office Visit 10/09/2018 4:20p [facility] Internal Félix Angeline, I51.81 Tak[place]ubo Medicine - [facility] BUSINESS MANAGEMENT SPECIALIST syndrome F41.9 Anxiety disorder, unspecified Office Visit 10/05/2018 3:40p [place] [facility] Rob Yan R07.9 Chest pain, Of [facility] Balbir Dozier unspecified I51.81 Takotsubo syndrome I49.5 Sick sinus syndrome I44.0 Atrioventricular block, first degree Office Visit 10/03/2018 3:00p [place] [facility] Selene Reyes R07.9 Chest pain, Of [facility] AT [facility] [place] MD Sigifredo, unspecified FACC, FSCAI Assessments Date Code Description Provider 04/03/2019 G47.33 Obstructive sleep apnea (adult) Jayshree Rodríguez, N.P. (pediatric) 04/03/2019 I51.81 Takotsubo cardiomyopathy Jayshree Rodríguez, N.P. 04/03/2019 R07.9 Chest pain, unspecified Jayshree Rodríguez, N.P. 04/03/2019 R06.00 Dyspnea, unspecified Jayshree Rodríguez, N.P. 04/03/2019 I10 Essential (primary) hypertension Jayshree Rodríguez, N.P. 04/03/2019 R00.2 Palpitations Jayshree Rodríguez, N.P. 04/03/2019 Z68.42 Body mass index (BMI) 45.0-49.9, Jayshree Rodríguez, N.P. adult 02/01/2019 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, left knee Epifanio [...] MD 11/30/2018 M25.552 Pain in left hip Epifanoi Jack MD 11/30/2018 M16.12 Unilateral primary osteoarthritis, Epifanio Jack MD left hip 11/21/2018 G47.33 Obstructive sleep apnea (adult) Gretchen Hargrove MD (pediatric) 11/21/2018 Z68.42 Body mass index (BMI) 45.0-49.9, Gretchen Hargrove MD adult 11/20/2018 M25.562 Pain in left knee Félix Angeline, BUSINESS MANAGEMENT SPECIALIST 11/20/2018 M54.32 Sciatica, left side Félix Angeline, BUSINESS MANAGEMENT SPECIALIST 11/20/2018 M54.5 Low back pain Félix Angeline, BUSINESS MANAGEMENT SPECIALIST 11/08/2018 F41.9 Anxiety disorder, unspecified Félix Angeline, BUSINESS MANAGEMENT SPECIALIST 11/08/2018 I51.81 Takotsubo syndrome Félix Angeline, BUSINESS MANAGEMENT SPECIALIST 11/08/2018 M25.562 Pain in left knee Félix Angeline, BUSINESS MANAGEMENT SPECIALIST 10/23/2018 I51.81 Takotsubo cardiomyopathy Félix Angeline, BUSINESS MANAGEMENT SPECIALIST 10/23/2018 F41.9 Anxiety disorder, unspecified Félix Angeline, BUSINESS MANAGEMENT SPECIALIST 10/23/2018 M25.562 Pain in left knee Félix Angeline, BUSINESS MANAGEMENT SPECIALIST 10/19/2018 I51.81 Takotsubo syndrome Rob Dozier M.D. 10/19/2018 I51.81 Takotsubo syndrome Lizella ECHO Schedule 10/18/2018 M54.16 Radiculopathy, lumbar region Epifanio Jack MD 10/18/2018 M54.5 Low back pain Epifanio Jack MD 10/18/2018 M25.562 Pain in left knee Epifanio Jack MD 10/09/2018 I51.81 Takotsubo cardiomyopathy Félix Angeline, BUSINESS MANAGEMENT SPECIALIST 10/09/2018 F41.9 Anxiety disorder, unspecified Félix Angeline, BUSINESS MANAGEMENT SPECIALIST 10/05/2018 R07.9 Chest pain, unspecified Rob Dozier M.D. 10/05/2018 I51.81 Takotsubo cardiomyopathy Rob Dozier M.D. 10/05/2018 I49.5 Sinus node dysfunction Rob Dozier M.D. 10/05/2018 I44.0 First degree atrioventricular block Rob Dozier M.D. 10/03/2018 R07.9 Chest pain, unspecified Selene Mei MD, [facility], [facility] Plan of Treatment Future Appointment(s):06/05/2019 2:40 pm - Rob Dozier M.D. at [facility]05/03/2019 10:30 am - Nurse Visit cc at [facility]05/02/2019 12 :00 pm - Nurse Visit cc at [facility]04/03/2019 - Jayshree Rodríguez, N.P.G47.33 Obstructive sleep apnea (adult) (pediatric)I51.81 Takotsubo cardiomyopathyNew Therapy:Cardiac FzgaxL22.9 Chest pain, lqmloihwdizZ14.00 Dyspnea, qndjkhryyggI67 Essential (primary) rsnxhprbwrymX91.2 PalpitationsNew Orders:Holter Monitor, Ordered: 04/03/19Follow up:OV [facility] 05/2019 after jlbppgJ59.42 Body mass index (BMI) 45.0-49.9, adult Functional Status Description No Information Available Mental Status Description No Information Available Referrals Description No Information Available
--- OUTSIDE RECORDS SUMMARY | 2019-05-15 03:45 | XMS REPORT | Continuity of Care Document ---
:1960 External Reference #:[id number] Author Name Faby Washington PA-C Address [address] [place] [address] Problems Active Problems Provider Date Kidney stone [...] is a former smoker Smoking Status Reviewed: 04/09/19 Patient is a former smoker Allergies, Adverse Reactions, Alerts Active Allergies Reaction Severity Comments Date Penicillins 09/09/2014 Tetracycline 09/09/2014 Penicillin Anaphylaxis Severe 09/11/2014 Keflex 09/09/2014 Erythromycin 09/09/2014 Contrast Dye 09/09/2014 Dilaudid 03/07/2019 Medications Active Medications SIG Qnty Indications Ordering Date Provider Famotidine 1 tab by mouth 60tabs K21.9 Jim D. 04/09/2019 40mg Tablets twice a day MD Kerry Sucralfate 10ml PO four 400ml Jim D. 03/01/2019 1GM/10ML times daily MD Kerry Suspension Lidocaine Viscous HCL Q4H 1units Unknown 03/01/2019 2% Solution Metoprolol Succinate 1/2 by mouth 30tabs Unknown 09/26/2018 ER every day 25mg Tablets ER 24HR Sertraline HCL Bedtime Unknown 09/22/2018 100mg Tablets Ondansetron Q6H 10tabs Unknown 07/18/2018 4mg Tablets Dispers Eplerenone Bedtime Unknown 11/16/2017 50mg Tablets Rosuvastatin Calcium Every Day Unknown 11/16/2017 5mg Tablets Ketoconazole apply twice a day 120units Jorge LuisPamela 03/19/2016 2% Cream MD manish Amlodipine Besylate [...] Philip, 100mg Tablets mouth daily History Medications Esomeprazole 1 cap by mouth 60tanika Payne, 04/03/2019 - Magnesium bid at least 30 04/09/2019 40mg Capsules minutes before DR meals Dexilant 1 by mouth bid 60tanika Payne, 04/02/2019 - 60mg Capsules at least 30min 04/03/2019 DR before meals Pantoprazole Sodium 1 by mouth bid 60tabs K21.9 Jim Payne, 2018 - at least 30 04/09/[address] minutes prior to meals Pantoprazole Sodium 1 by mouth bid 60tabs K21.9 Saritha 03/07/2019 - at least 30min MD Lucy 03/27/[address] before meals Immunizations CPT Code Status Date Vaccine Lot # [id number] Given 07/31/2014 Influenza Vaccine (Fluvirin) 3 Years Of Age Or Older Vital Signs Date Vital Result Comment 04/09/2019 1:14pm Height 71 inches 5'11" Weight 362.00 lb BMI (Body Mass Index) 50.5 kg/m2 03/07/2019 2:46pm Height 71 inches 5'11" Weight [...] Date Location Provider Dx Diagnosis Office Visit 03/07/2019 Gastroenterology Faby Nguyen K21.9 Gastro- esophageal 2:30p [facility] JOSELITO Washington reflux disease without esophagitis Assessments Date Code Description Provider 04/09/2019 K21.9 Gastro-esophageal reflux disease without Faby Washington PA-C esophagitis 03/07/2019 K21.9 Gastro-esophageal reflux disease without Faby Washington PA-C esophagitis Plan of Treatment Future Appointment(s):05/10/2019 2:00 pm - Faby Washington PA-C at [facility]04/09/2019 - ANTONINO Garrett CK21.9 Gastro-esophageal reflux disease without esophagitisNew Medication: Famotidine 40 mg - 1 tab by mouth twice a day Functional Status Description No Information Available Mental Status Description No Information Available Referrals Description No Information Available
--- OUTSIDE RECORDS SUMMARY | 2019-05-15 03:45 | XMS REPORT | Continuity of Care Document ---
:1960 External Reference #:[id number] Author Name Epifanio Jack MD (transmitted by agent of provider Khoi Wilson) Address [address] [place] [id number] Care Team Providers Name Role Phone Lennox Anderson MD - Urology Care Team Information Donkey Engine Firer/Fireman [phone] [facility] - Care Team Information Donkey Engine Firer/Fireman [phone] Research And Development Engineer Benjamin Kemp MD - Neurology Care Team Information Donkey Engine Firer/Fireman [phone] Laura Wu MD - Care Team Information Donkey Engine Firer/Fireman [phone] Dermatology Sarah Alvarez, PhD. - Clinical Care Team Information [employer]key Engine Firer/Fireman Rei Juares MD - Ophthalmology Care Team Information Donkey Engine Firer/Fireman [phone] Mk Lowe MD - Care Team Information Donkey Engine Firer/Fireman [phone] Otolaryngology Yovani Veliz MD - Infectious Care Team Information [employer]key Engine Firer/Fireman Disease Darius Corral MD - Internal Care Team Information [employer]key Engine Firer/Fireman Medicine Lucrecia Dent MD - Internal Medicine Care Team Information Donkey Engine Firer/Fireman [phone] Problems Active Problems Provider Date Obstructive sleep apnea of adult Tabitha Lopez DNP, RN, Onset: 07/31/2014 [facility]- Essential hypertension Akin Kang M.D. [...] Onset: 05/26/2017 Chest pain Selene Mei MD, [facility], Onset: 10/03/2018 [facility] Derangement of knee [...] Magnesium Oxide 1 by mouth twice 90tabs oRb Yan 11/19/2014 400mg daily Balbir Dozier Tablets [...] CPT Code Status Date Vaccine Lot # [id number] Given 02/21/2018 Influenza Virus Vaccine, Quadrivalent, Split, [...] Result H/L Range Note Laboratory test 04/01/2019 [facility] Troponin-I 0.00 ng/mL < 0.03 1 finding 101 (TnI) [place] [address] [phone] Inr/Protime 03/31/2019 [facility] Inr 1.00 Normal 0.82-1.[address] [place] [address] [phone] Laboratory test 03/31/2019 [facility] Lactic Acid 1.9 mmol/L Normal 0.5-2.0 3 finding [address] [place] [address] [phone] Comp Metabolic 03/31/2019 [facility] Sodium 140 mmol/L Normal 135-145 Panel [address] [place] [address] [phone] Potassium 3.9 mmol/L Normal 3.5-5.0 Chloride 103 [...] Egfr 84.1 >60 4 Laboratory test 03/31/2019 [facility] Troponin-I (TnI) 0.01 ng/ mL <0.03 [address] [place] [address] [phone] B-Type Natriuretic Peptide BNP 46 pg/mL <=100 CBC Auto 03/01/2019 [facility] White Blood 7.0 10^3/uL Normal 3.5-10.[address] [place] [address] [phone] Red Blood Count 5.02 10^6/uL Normal 4.18-5.48 [...] Cells % 0.0 Comp Metabolic 03/01/2019 [facility] Sodium 139 mmol/L Normal 135-[address] [place] [address] [phone] Potassium 3.8 mmol/L Normal 3.5-5.0 Chloride 103 [...] Egfr 75.2 >60 6 Laboratory test 03/01/2019 [facility] Magnesium 1.9 mg/dL Normal 1.9-2.7 finding [address] [place] [address] [phone] Troponin-I (TnI) 0.01 ng/mL <0.04 7 Lactic Acid 1.8 mmol/L Normal 0.5-2.0 8 Laboratory test 01/31/2019 [facility] Troponin-I (TnI) 0.00 ng/ mL <0.04 9 finding [address] [place] [address] [phone] Laboratory test 01/30/2019 [facility] Troponin-I (TnI) 0.00 ng/ mL <0.04 10 finding [address] [place] [address] [phone] B-Type Natriuretic Peptide BNP 25 pg/mL <=100 Comp Metabolic 01/30/2019 [facility] Sodium 138 mmol/L Normal 135-145 Panel [address] [place] [address] [phone] Potassium 3.9 mmol/L Normal 3.5-5.0 Chloride 104 [...] >60 Egfr 75.2 >60 11 Inr/Protime 01/30/2019 [facility] Inr 0.96 Normal 0.82-1.[address] [place] [address] [phone] CBC Auto Diff 01/30/2019 [facility] White Blood 7.7 Normal 3.5 -10.[address] Count 10^3/[place] [address] [phone] Red Blood Count 5.12 10^6/uL Normal 4.18-5.48 [...] Red Blood Cells % 0.1 Laboratory 01/07/2019 [facility] Troponin-I 0.00 <0.04 13 test finding [address] (TnI) ng/[place] [address] [phone] CBC Auto Diff 01/07/2019 [facility] White Blood 6.8 Normal 3.5 -10.[address] Count 10^3/[place] [address] [phone] Red Blood Count 5.17 10^6/uL Normal 4.18-5.48 [...] Red Blood Cells % 0.0 Inr/Protime 01/07/2019 [facility] Inr 1.01 Normal 0.82-1.[address] [place] [address] [phone] Laboratory test 01/07/2019 [facility] B-Type 38 <=[address] Natriuretic pg/[place] [address] Peptide BNP [phone] Comp Metabolic 01/07/2019 [facility] Co2 Carbon 24 Normal 22- [address] Dioxide mmol/L [place], [place] [address] [phone] Calcium 9.4 mg/dL Normal 8.6-10.3 Albumin 4.5 [...] 10 mmol/L Normal 2-11 Laboratory test 01/07/2019 [facility] Troponin-I (TnI) 0.00 ng/ mL <0.04 [address] [place] [address] [phone] 1 Troponin-I testing on Plasma Separator Tubes (PST) has a known false positive rate of 0.20-0.40%. All positive troponins reflex immediately to secondary confirmatory testing. Using the [employer] DxI 800 Access Immunoassay systems, the 99th percentile upper reference limit was demonstrated to be < 0.03 ng/mL. 2 Standard intensity warfarin therapeutic range: 2.0-3.0 High intensity warfarin therapeutic range: 2.5-3.5 3 [facility] Severe Sepsis and Septic Shock [...] immediately to secondary confirmatory testing. Using the [employer] DxI 800 Access Immunoassay systems, the 99th [...] demonstrated to be < 0.03 ng/mL. 8 [facility] Severe Sepsis and Septic Shock [...] immediately to secondary confirmatory testing. Using the [employer] DxI 800 Access Immunoassay systems, the 99th percentile upper reference limit was demonstrated to be < 0.03 ng/mL. Procedures Date Code Description Status 04/03/2019 05798 EKG Tracing & Interpretation Completed 10/19/2018 91529 Echocardiogram, Limited Study Completed 10/19/2018 97542 Echocardiogram, Limited Study Completed 10/05/2018 32347 EKG Tracing & Interpretation Completed 05/24/2017 [id number] Diabetic Retinal Eye Exam Completed Medical Devices Description No Information Available Encounters Type Date Location Provider Dx Diagnosis Office Visit 04/03/2019 Joe Joaquin M22.2x2 Patellofemoral 3:00p at [facility] disorders, left knee M25.562 Pain in left knee M54.5 Low back pain Office Visit 02/01/2019 Joe Joaquin M22.2x2 Patellofemoral 1:30p [facility] disorders, left [place] knee M25.562 Pain in left knee M54.5 Low back pain Office Visit 01/11/2019 Joe Joaquin M22.2x2 Patellofemoral 2:30p [facility] disorders, left [place] knee 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, left knee M54.5 [...] [facility] apnea (adult) 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 (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) Z68.42 Body mass index (BMI) 45.0-49.9, adult Office Visit 11/20/2018 4:00p [facility] Internal Félix Angeline, SPRAY TECHNICIAN M25.562 Pain in left Medicine - [facility] knee M54.32 Sciatica, left side M54.5 Low back pain Office Visit 11/08/2018 9:00a [facility] Internal Félix Angeline, F41.9 Anxiety disorder, Medicine - [facility] SPRAY TECHNICIAN unspecified I51.81 Takotsubo syndrome M25.562 Pain in left knee Office Visit 10/23/2018 2:00p [facility] Internal Félix Angeline, I51.81 [place]ubo Medicine - [facility] SPRAY TECHNICIAN syndrome F41.9 Anxiety disorder, unspecified M25.562 Pain in left knee Office Visit 10/18/2018 [place] Epifanio Joaquni M54.16 Radiculopathy, 3:15p [facility] lumbar region [place] M54.5 Low back pain M25.562 Pain in left knee Office Visit 10/09/2018 4:20p [facility] Internal Félix Angeline, I51.81 [facility]CHNIC[facility] syndrome F41.9 Anxiety disorder, unspecified Office Visit 10/05/2018 3:40p [place] [facility] Rob Yan R07.9 Chest pain, Of [facility] Balbir Dozier unspecified I51.81 Takotsubo syndrome I49.5 Sick sinus syndrome I44.0 Atrioventricular block, first degree Office Visit 10/03/2018 3:00p [place] [facility] Selene Reyes R07.9 Chest pain, Of [facility] AT [facility] Sigifredo, unspecified FACC, FSCAI Assessments Date Code Description Provider 04/03/2019 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, left knee Epifanio Jack MD 04/03/2019 G47.33 Obstructive sleep apnea (adult) Jayshree Rodríguez, N.P. (pediatric) 04/03/2019 M25.562 Pain in left knee Epifanio Jack MD 04/03/2019 I51.81 Takotsubo cardiomyopathy Jayshree Rodríguez N.P. 04/03/2019 M54.5 Low back pain Epifanio Jack MD 04/03/2019 R07.9 Chest pain, unspecified Jayshree Rodríguez N.P. 04/03/2019 R06.00 Dyspnea, unspecified Jayshree Rodríguez, N.P. 04/03/2019 I10 Essential (primary) hypertension Jayshree Rodríguez N.P. 04/03/2019 R00.2 Palpitations Jayshree Rodríguez N.P. 04/03/2019 Z68.42 Body mass index (BMI) 45.0-49.9, Jayshree Rodríguez N.P. adult 02/01/2019 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, left [...] M25.562 Pain in left knee Félix Angeline, SPRAY TECHNICIAN 11/20/2018 M54.32 Sciatica, left side Félix Angeline, SPRAY TECHNICIAN 11/20/2018 M54.5 Low back pain Félix Angeline, SPRAY TECHNICIAN 11/08/2018 F41.9 Anxiety disorder, unspecified Félix Angeline, SPRAY TECHNICIAN 11/08/2018 I51.81 Takotsubo syndrome Félix Angeline, SPRAY TECHNICIAN 11/08/2018 M25.562 Pain in left knee Félix Angeline, SPRAY TECHNICIAN 10/23/2018 I51.81 Takotsubo cardiomyopathy Félix Angeline, SPRAY TECHNICIAN 10/23/2018 F41.9 Anxiety disorder, unspecified Félix Angeline, SPRAY TECHNICIAN 10/23/2018 M25.562 Pain in left knee Félix Angeline, SPRAY TECHNICIAN 10/19/2018 I51.81 Takotsubo syndrome Rob Dozier M.D. 10/19/2018 I51.81 Takotsubo syndrome [place] [facility] Schedule 10/18/2018 M54.16 Radiculopathy, lumbar region Epifanio Jack MD 10/18/2018 M54.5 Low back pain Epifanio Jack MD 10/18/2018 M25.562 Pain in left knee Epifanio Jack MD 10/09/2018 I51.81 Takotsubo cardiomyopathy Félix Angeline, SPRAY TECHNICIAN 10/09/2018 F41.9 Anxiety disorder, unspecified Félix Angeline, SPRAY TECHNICIAN 10/05/2018 R07.9 Chest pain, unspecified Rob Dozier M.D. 10/05/2018 I51.81 Takotsubo cardiomyopathy Rob Dozier M.D. 10/05/2018 I49.5 Sinus node dysfunction Rob Dozier M.D. 10/05/2018 I44.0 First degree atrioventricular block Rob Dozier M.D. 10/03/2018 R07.9 Chest pain, unspecified Selene Mei MD, [facility], [facility] Plan of Treatment Future Appointment(s):06/04/2019 1:30 pm - Epifanio Jack MD at [place] [facility] [place]306/05/2019 2:40 pm - Rob Dozier M.D. at [facility]05/03/2019 10:30 am - Nurse Visit cc at [facility]05/02/2019 12 :00 pm - Nurse Visit cc at [facility]04/03/2019 - Epifanio F [place], MD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, left kneeNew Therapy:Physical TherapyFollow up:Follow up: 2 [id number] Pain in left kneeM54.5 Low back pain Functional Status Description No Information Available Mental Status Description No Information Available Referrals Description No Information Available
[2019-05-15 03:48] LABS: ABS Basophils 0.1 10^3/ul (0-0.2); ABS Eosinophils 0.1 10^3/ul (0-0.6); ABS Lymphocytes 2.5 10^3/ul (1.0-4.8); ABS Monocytes 0.7 10^3/ul (0-0.8); ABS Neutrophils 4.6 10^3/ul (1.5-7.7); Eosinophil % 1.4 %; Hematocrit 43 % (42-52); Hemoglobin 14.6 g/dL (14.0-18.0); Lymphocyte % 31.3 %; Mean Corpuscular HGB Conc 34 g/dL (31-36); Mean Corpuscular Hemoglobin 30 pg (27-31); Mean Corpuscular Volume 89 fL (80-94); Mean Platelet Volume 6.7 fL (7.4-10.4); Platelet Count 215 10^3/uL (150-450); Red Cell Distribution Width 14 % (10-15)
[2019-05-15 04:02] LABS: Albumin 4.4 g/dL (3.2-5.2); Albumin/Globulin Ratio 1.8 (1-3); BUN/Creatinine Ratio 13.9 (8-20); Calcium 9.7 mg/dL (8.6-10.3); EGFR African American 84.1 (>60); EGFR Non-African American 69.5 (>60); Globulin 2.4 g/dL (2-4); Potassium 3.4 mmol/L (3.5-5.0); Total Bilirubin 0.8 mg/dL (0.2-1.0); Total Protein 6.8 g/dL (6.4-8.9)
[2019-05-15 05:08] LABS: TSH (Thyroid Stimulating Horm) 2.01 mcIU/mL (0.34-5.60)
[2019-05-15 05:52] LABS: Troponin I 0.01 ng/mL (<0.03)
[2019-05-15 06:55] VITALS: BP 158/77
== END 2019-05-15 06:54 | disposition home or self-care (01) ==
LOC: ED 03:09
DX: R00.2 Palpitations (principal); R42 Dizziness and giddiness; Z79.899 Other long term (current) drug therapy; E03.9 Hypothyroidism, unspecified; I48.91 Unspecified atrial fibrillation; I10 Essential (primary) hypertension; E78.00 Pure hypercholesterolemia, unspecified; Z87.891 Personal history of nicotine dependence
CPT/HCPCS: 36415; 71046; 80053; 84443; 84484; 85025; 93005; 99283

== ENCOUNTER 2019-06-25 15:15 | Emergency (ER) | payer OTHER ==
--- OUTSIDE RECORDS SUMMARY | 2019-06-25 15:49 | XMS REPORT | Continuity of Care Document ---
:1960 External Reference #:[id number] Author Name Rob Dozier M.D. (transmitted by agent of provider Luna Thurston ) Address [address] [address] Care Team Providers Name Role Phone Lennox Anderson MD - Urology Care Team Information Phy Therapist [phone] [facility] - Care Team Information Phy Therapist Car Stereo Installer Benjamin Kemp MD - Neurology Care Team Information Phy Therapist Laura Wu MD - Care Team Information Phy Therapist [phone] Dermatology Sarah Alvarez, PhD. - Clinical Care Team Information Phy Therapist Rei Juares MD - Ophthalmology Care Team Information Phy Therapist Mk Lowe MD - Care Team Information Phy Therapist [phone] Otolaryngology Yovani Veliz MD - Infectious Care Team Information Phy Therapist Disease Darius Corral MD - Internal Care Team Information Phy Therapist Medicine Félix Marcus NP - Internal Medicine Care Team Information Phy Therapist [phone] Problems Active Problems Provider Date Obstructive sleep apnea of adult Tabitha Lopez DNP, RN, Onset: 07/31/2014 [employer] PERSON-BC Essential hypertension Akin Kang M.D. Onset: 03/19/2016 [...] Onset: 05/26/2017 Chest pain Selene Mei MD, [facility], Onset: 10/03/2018 [facility] Derangement of [...] Marijuana quit 1985 regularly Smoking Status Reviewed: 06/05/19 Heavy tobacco smoker (more than 10 cigarettes/day) Exercise Type/Frequency Exercises sporadically PT 2x/wk Allergies, Adverse Reactions, Alerts Active Allergies Reaction Severity Comments Date Tricyclic Antidepressants 07/31/2014 Penicillin Anaphylaxis Severe 09/11/2014 Keflex Anaphylaxis Severe 09/11/2014 Tetracycline Anaphylaxis Severe 09/11/2014 Erythromycin Urticaria Moderate 09/11/2014 Imitrex 05/26/2017 Cortisol Succinate 06/05/2019 Medications Active Medications SIG Qnty Indications Ordering Date Provider Levothyroxine Sodium 1 by mouth every Rob Joni 06/05/2019 day Balbir Dozier 25mcg Tablets Coenzyme Q-10 once daily 30caps M79.18 Rob Joni 06/05/2019 200mg Balbir Dozier Capsules Potassium Chloride 1 tablet daily 60tabs Rob Joni 05/17/2019 Susie ER Balbir Dozier 20Meq Tablets ER Levothyroxine Sodium 1 by mouth every 15tabs Félix Marcus NP 04/11/2019 other day (in 25mcg Tablets addition to 200mcg tablet) Sertraline HCL Take 1 tab bid 45tabs F41.9 Félix Marcus NP 10/09/2018 [...] Capsules dose Metoprolol Succinate 1/2 tablet by 45tabs Jayshree Rodríguez, ER mouth every day N.P. 25mg Tablets ER 24HR Carafate 1 gram (10 ml) Unknown 1GM/10ML four times per day Suspension on empty stomach as needed Pepcid take one Unknown 20mg Tablets capsule/tablet by mouth bid History Medications Pantoprazole Sodium 1 by mouth every 30tabs Félix Marcus NP 03/05/2019 - 40mg day 04/02/2019 Tablets Medications Administered in Office Medication SIG Qnty Indications Ordering Provider Date Depomedrol 40MG RAKESH Mcmullen 09/21/2018 Injection Immunizations CPT Code Status Date Vaccine Lot # [id number] Given 02/21/2018 Influenza Virus Vaccine, Quadrivalent, Split, Preservative Free [id number] Given 07/31/2014 Fluvirin Im 3Yrs And Older Vital Signs Date Vital Result Comment 06/05/2019 2:53pm Height 71 inches 5'11" Weight 365.00 lb with shoes Heart Rate 62 /min left radial BP Systolic Sitting 152 mmHg left radial BP Diastolic Sitting 78 mmHg left radial BMI (Body Mass Index) 50.9 kg/m2 Ejection Fraction 55-60% Echo 10/19/18 04/03/2019 11:43am Height 71 inches 5'11" Weight 358.00 lb no shoes Heart Rate 80 /min BP Systolic Sitting 130 mmHg lue reg cuff BP Diastolic Sitting 68 mmHg lue reg cuff BP Systolic Standing 130 mmHg lue reg cuff BP Diastolic Standing 64 mmHg lue reg cuff Respiratory Rate 14 /min BMI (Body Mass Index) 49.9 kg/m2 Ejection Fraction 55-60% echo. 10/19/18 Results Test Acquired Date Facility Test Result H/L Range Note Basic Metabolic 05/24/2019 [facility] Sodium 140 mmol/L Normal 135-145 1 Panel [address] [place] [address] [phone] Potassium 4.2 mmol/L Normal 3.5-5.0 Chloride 104 mmol/L Normal 101-111 Co2 Carbon Dioxide 27 mmol/L Normal 22-32 Anion Gap 9 mmol/L Normal 2-11 Glucose 152 mg/dL High 70-100 Blood Urea Nitrogen 13 mg/dL Normal 6-24 Creatinine 0.94 mg/dL Normal 0.67-1.17 BUN/Creatinine Ratio 13.8 Normal 8-20 Calcium 9.4 mg/dL Normal 8.6-10.3 Egfr Non- 81.6 >60 Egfr 98.7 >60 2 Laboratory test 05/24/2019 [facility] Magnesium 1.8 mg/dL Low 1.9-2.7 [address] [place] [address] [phone] Laboratory test 05/15/2019 [facility] Troponin-I 0.01 <0.03 4 finding 101 [facility] (TnI) ng/[place] [address] [phone] CBC Auto Diff 05/15/2019 [facility] White Blood 8.0 Normal 3.5 -10.[address] Count 10^3/[place] [address] [phone] Red Blood Count 4.80 10^6/uL Normal 4.18-5.48 Hemoglobin 14.6 g/dL Normal 14.0-18.0 Hematocrit 43 % Normal 42-52 Mean Corpuscular Volume 89 fL Normal 80-94 Mean Corpuscular Hemoglobin 30 pg Normal 27-31 Mean Corpuscular HGB Conc 34 g/dL Normal 31-36 Red Cell Distribution Width 14 % Normal 10-15 Platelet Count 215 10^3/uL Normal 150-450 Mean Platelet Volume 6.7 fL Low 7.4-10.4 Abs Neutrophils 4.6 10^3/uL Normal 1.5-7.7 Abs Lymphocytes 2.5 10^3/uL Normal 1.0-4.8 Abs Monocytes 0.7 10^3/uL Normal 0-0.8 Abs Eosinophils 0.1 10^3/uL Normal 0-0.6 Abs Basophils 0.1 10^3/uL Normal 0-0.2 Abs Nucleated RBC 0.0 10^3/uL Granulocyte % 57.4 % Lymphocyte % 31.3 % Monocyte % 9.1 % Eosinophil % 1.4 % Basophil % 0.8 % Nucleated Red Blood Cells % 0.0 Comp Metabolic 05/15/2019 [facility] Sodium 138 mmol/L Normal 135-[address] [place] [address] [phone] Potassium 3.4 mmol/L Low 3.5-5.0 Chloride 102 mmol/L Normal 101-111 Co2 Carbon Dioxide 25 mmol/L Normal 22-32 Anion Gap 11 mmol/L Normal 2-11 Glucose 114 mg/dL High 70-100 Blood Urea Nitrogen 15 mg/dL Normal 6-24 Creatinine 1.08 mg/dL Normal 0.67-1.17 BUN/Creatinine Ratio 13.9 Normal 8-20 Calcium 9.7 mg/dL Normal 8.6-10.3 Total Protein 6.8 g/dL Normal 6.4-8.9 Albumin 4.4 g/dL Normal 3.2-5.2 Globulin 2.4 g/dL Normal 2-4 Albumin/Globulin Ratio 1.8 Normal 1-3 Total Bilirubin 0.80 mg/dL Normal 0.2-1.0 Alkaline Phosphatase 53 U/L Normal 34-104 Alt 32 U/L Normal 7-52 Ast 31 U/L Normal 13-39 Egfr Non- 69.5 >60 Egfr 84.1 >60 5 Laboratory 05/15/2019 [facility] TSH (Thyroid 2.01 Normal 0.34 -5.[address] [facility]) mcIU/[place] [address] [phone] Troponin-I (TnI) 0.01 ng/mL <0.03 6 Order 05/02/2019 [facility] Holter Monitor <pending> [address] [place] [address] [phone] Lipid Profile 04/05/2019 [facility] Triglycerides 122 mg/dL 7 (Trig/Chol/HDL) [place] [address] [phone] Cholesterol 144 mg/dL 8 HDL Cholesterol 40.4 mg/dL 9 LDL Cholesterol 79 mg/dL 10 Laboratory test 04/05/2019 [facility] TSH (Thyroid 7.50 High 0.34-5.60 11 finding Stim Horm) mcIU/mL [place], [place] [address] [phone] Hemoglobin A1c (Glyco HGB) 5.7 % High 4.0-5.6 12 Laboratory 04/01/2019 [facility] Troponin-I 0.00 <0.03 13 test finding (TnI) ng/mL [place], [place] [id number] [phone] Inr/Protime 03/31/2019 [facility] Inr 1.00 Normal 0.82-1.09 14 [place], [place] [address] [phone] Laboratory 03/31/2019 [facility] Lactic Acid 1.9 Normal 0.5- 2.0 15 test finding mmol/[place] [address] [phone] Comp Metabolic 03/31/2019 [facility] Sodium 140 Normal 135- 145 Panel mmol/[place] [address] [phone] Potassium 3.9 mmol/L Normal 3.5-5.0 Chloride 103 [...] Egfr Non- 69.5 >60 Egfr 84.1 >60 16 Laboratory test 03/31/2019 [facility] Troponin-I (TnI) 0.01 ng/ mL <0.03 [address] [place] [address] [phone] B-Type Natriuretic Peptide BNP 46 pg/mL <=100 CBC Auto 03/01/2019 [facility] White Blood 7.0 10^3/uL Normal 3.5-10.[address] [place] [address] [phone] Red Blood Count 5.02 10^6/uL Normal 4.18-5.48 [...] Red Blood Cells % 0.0 Laboratory test 03/01/2019 [facility] Magnesium 1.9 mg/dL Normal 1.9-2.[address] [place] [address] [phone] Troponin-I (TnI) 0.01 ng/mL <0.04 18 Lactic Acid 1.8 mmol/L Normal 0.5-2.0 19 Comp Metabolic 03/01/2019 [facility] Sodium 139 mmol/L Normal 135-[address] [place] [address] [phone] Potassium 3.8 mmol/L Normal 3.5-5.0 Chloride 103 [...] Egfr Non- 62.1 >60 Egfr 75.2 >60 20 Laboratory 01/31/2019 [facility] Troponin-I 0.00 <0.04 [address] (TnI) ng/[place] [address] [phone] CBC Auto Diff 01/30/2019 [facility] White Blood 7.7 Normal 3.5 -10.[address] Count 10^3/[place] [address] [phone] Red Blood Count 5.12 10^6/uL Normal 4.18-5.48 [...] Red Blood Cells % 0.1 Inr/Protime 01/30/2019 [facility] Inr 0.96 Normal 0.82-1.09 22 [address] [place] [address] [phone] Comp Metabolic 01/30/2019 [facility] Sodium 138 mmol/L Normal 135-145 Panel [address] [place] [address] [phone] Potassium 3.9 mmol/L Normal 3.5-5.0 Chloride 104 [...] Egfr Non- 62.1 >60 Egfr 75.2 >60 23 Laboratory test 01/30/2019 [facility] Troponin-I (TnI) 0.00 ng/ mL <0.04 [address] [place] [address] [phone] B-Type Natriuretic Peptide BNP 25 pg/mL <=100 Laboratory 01/07/2019 [facility] Troponin-I 0.00 <0.04 [address] (TnI) ng/[place] [address] [phone] CBC Auto Diff 01/07/2019 [facility] White Blood 6.8 Normal 3.5 -10.[address] Count 10^3/[place] [address] [phone] Red Blood Count 5.17 10^6/uL Normal 4.18-5.48 [...] Red Blood Cells % 0.0 Inr/Protime 01/07/2019 [facility] Inr 1.01 Normal 0.82-1.[address] [place] [address] [phone] Laboratory test 01/07/2019 [facility] B-Type 38 <=[address] Natriuretic pg/[place] [address] Peptide BNP [phone] Comp Metabolic 01/07/2019 [facility] Co2 Carbon 24 Normal 22- [address] Dioxide mmol/[place] [address] [phone] Calcium 9.4 mg/dL Normal 8.6-10.3 Albumin 4.5 [...] Egfr Non- 71.3 >60 Egfr 86.2 >60 27 Sodium 138 mmol/L Normal 135-145 Potassium 3.8 mmol/L Normal 3.5-5.0 Chloride 104 mmol/L Normal 101-111 Anion Gap 10 mmol/L Normal 2-11 Laboratory test 01/07/2019 [facility] Troponin-I (TnI) 0.00 ng/ mL <0.04 [address] [place] [address] [phone] 1 in 1 week 2 Because ethnic data is not always readily [...] 15-29 5 Kidney failure <15 (or dialysis) 3 in 1 week 4 Troponin-I testing on Plasma Separator Tubes (PST) has a known false positive rate of 0.20-0.40%. All positive troponins reflex immediately to secondary confirmatory testing. Using the [employer] DxI 800 Access Immunoassay systems, the 99th percentile upper reference limit was demonstrated to be < 0.03 ng/mL. 5 Because ethnic data is not always [...] 5 Kidney failure <15 (or dialysis) 6 Troponin-I testing on Plasma Separator Tubes (PST) has a known false positive rate of 0.20-0.40%. All positive troponins reflex immediately to secondary confirmatory testing. Using the [employer] DxI 800 Access Immunoassay systems, the 99th percentile upper reference limit was demonstrated to be < 0.03 ng/mL. 7 Desirable: <150 Borderline High: 150-199 High: 200-499 Very High: >500 8 Desirable: <200 Borderline High: 200-239 High: >239 9 Low: <40 Desirable: 40-60 High: >60 10 Desirable: <100 Near Optimal: 100-129 Borderline High: 130-159 High: 160-189 Very High: >189 11 FASTING 10 HOUR 12 Therapeutic target for the treatment of diabetes mellitus patients is <7% HBA1C, and in selective patients <6.0%. Please refer to [place] [employer] diabetic care guidelines for further information. 13 Troponin-I testing on Plasma Separator Tubes (PST) has a known false positive rate of 0.20-0.40%. All positive troponins reflex immediately to secondary confirmatory testing. Using the [employer] DxI 800 Access Immunoassay systems, the 99th percentile upper reference limit was demonstrated to be < 0.03 ng/mL. 14 Standard intensity warfarin therapeutic range: 2.0-3.0 High intensity warfarin therapeutic range: 2.5-3.5 15 [facility] Severe Sepsis and Septic Shock Management Bundle Measure requires all lactic acids initially measuring >2.0 mmol/L be repeated. 16 Because ethnic data is not always [...] 5 Kidney failure <15 (or dialysis) 17 Troponin-I testing on Plasma Separator Tubes (PST) has a known false positive rate of 0.20-0.40%. All positive troponins reflex immediately to secondary confirmatory testing. Using the [employer] Dx[employer] 800 Access Immunoassay systems, the 99th percentile upper reference limit was demonstrated to be < 0.03 ng/mL. 18 Troponin-I testing on Plasma Separator Tubes (PST) has a known false positive rate of 0.20-0.40%. All positive troponins reflex immediately to secondary confirmatory testing. Using the [employer] DxI 800 Access Immunoassay systems, the 99th percentile upper reference limit was demonstrated to be < 0.03 ng/mL. 19 [facility] Severe Sepsis and Septic Shock Management Bundle [...] 5 Kidney failure <15 (or dialysis) 21 Troponin-I testing on Plasma Separator Tubes (PST) has a known false positive rate of 0.20-0.40%. All positive troponins reflex immediately to secondary confirmatory testing. Using the [employer] DxI 800 Access Immunoassay systems, the 99th percentile upper reference limit was demonstrated to be < 0.03 ng/mL. 22 Standard intensity warfarin therapeutic range: 2.0-3.0 High intensity warfarin therapeutic range: 2.5-3.5 23 Because ethnic data is not always readily [...] 15-29 5 Kidney failure <15 (or dialysis) 24 Troponin-I testing on Plasma Separator Tubes (PST) has a known false positive rate of 0.20-0.40%. All positive troponins reflex immediately to secondary confirmatory testing. Using the [employer] DxI 800 Access Immunoassay systems, the 99th percentile upper reference limit was demonstrated to be < 0.03 ng/mL. 25 Troponin-I testing on Plasma Separator Tubes (PST) has a known false positive rate of 0.20-0.40%. All positive troponins reflex immediately to secondary confirmatory testing. Using the [employer] DxI 800 Access Immunoassay systems, the 99th percentile upper reference limit was demonstrated to be < 0.03 ng/mL. 26 Standard intensity warfarin therapeutic range: 2.0-3.0 High intensity warfarin therapeutic range: 2.5-3.5 27 Because ethnic data is not always readily [...] 15-29 5 Kidney failure <15 (or dialysis) 28 Troponin-I testing on Plasma Separator Tubes (PST) has a known false positive rate of 0.20-0.40%. All positive troponins reflex immediately to secondary confirmatory testing. Using the [employer] DxI 800 Access Immunoassay systems, the 99th percentile upper reference limit was demonstrated to be < 0.03 ng/mL. Procedures Date Code Description Status 06/05/2019 68401 EKG Tracing & Interpretation Completed 05/03/2019 62933 Holter Monitor Review (24 hr)dr review & interp only Completed 05/02/2019 26484 ECG Monitor/Recording W/Visual Superimposition Completed Scanning 05/02/2019 56553 ECG Monitor/Recording W/Visual Superimposition Completed Scanning 04/03/2019 35567 EKG Tracing & Interpretation Completed 05/24/2017 [id number] Diabetic Retinal Eye Exam Completed Medical Devices Description No Information Available Encounters Type Date Location Provider Dx Diagnosis Office Visit 06/05/2019 [facility] Rob Dozier, R00.2 Palpitations 2:40p M.D. 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 apnea (adult) (pediatric) I51.81 Takotsubo syndrome R07.9 Chest pain, unspecified R06.00 Dyspnea, unspecified I10 Essential (primary) hypertension R00.2 Palpitations Z68.42 Body mass index (BMI) 45.0-49.9, adult Office Visit 02/01/2019 Joe Epifanio Joaquin M22.2x2 Patellofemoral 1:30p [facility]oped[facility] at [facility], left [place] knee M25.562 Pain in left knee M54.5 Low back pain Office Visit 01/11/2019 Joe Joaquin M22.2x2 Patellofemoral 2:30p [facility]oped[facility] at [facility], left [place] knee 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, left knee M54.5 Low back pain M54.5 Low back pain Assessments Date Code Description Provider 06/05/2019 R00.2 Palpitations Rob Dozier M.D. 06/05/2019 I51.81 Takotsubo cardiomyopathy Rob Dozier M.D. 06/05/2019 R07.9 Chest pain, unspecified Rob Dozier M.D. 06/05/2019 I10 Essential (primary) hypertension Rob Dozier M.D. 06/05/2019 I44.0 Atrioventricular block, first degree Rob Dozier M.D. 06/05/2019 M79.18 Myalgia, other site Rob Dozier M.D. 05/03/2019 R00.2 Palpitations Milka MedinaD. 05/02/2019 R00.2 Palpitations Rob Dozier M.D. 05/02/2019 R00.2 Palpitations Nurse Visit cc 04/03/2019 I44.0 Atrioventricular block, first degree Rob Dozier M.D. 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 (pediatric) 04/03/2019 M25.562 Pain in left knee Epifanio Jack MD 04/03/2019 I51.81 Takotsubo cardiomyopathy Jayshree Rodríguez N.P. 04/03/2019 M54.5 Low back pain Epifanio Jack MD 04/03/2019 R07.9 Chest pain, unspecified Jayshree Rodríguez N.P. 04/03/2019 R06.00 Dyspnea, unspecified Jayshree Rodríguez N.P. 04/03/2019 I10 Essential (primary) hypertension Jayshree Rodríguez N.P. 04/03/2019 R00.2 Palpitations Jayshree Rodríguez N.P. 04/03/2019 Z68.42 Body mass index (BMI) 45.0-49.9, adult Jayshree Rodríguez, N.P. 02/01/2019 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, left knee Epifanio Jack MD 02/01/2019 M25.562 Pain in left knee Epifanio Jack MD 02/01/2019 M54.5 Low back pain Epiafnio Jack MD 01/11/2019 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, left knee Epifanio Jack MD 01/11/2019 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, left knee Epifanio Jack MD 01/11/2019 M54.5 Low back pain Epifanio Jack MD 01/11/2019 M54.5 Low back pain Epifanio Jack MD Plan of Treatment Future Appointment(s):07/16/2019 1:00 pm - [place] [facility] Schedule at [facility]06/14/2019 1:00 pm - Félix Marcus NP at [facility] Internal Medicine - [facility]06/05/2019 - Rob Dozier M.D.R00.2 PalpitationsRecommendations: consider [employer] jassi for phone to try to capture rhythm. increase usyiefnthJ44.81 Takotsubo cardiomyopathyNew Orders:Echocardiogram, Scheduled: Follow up:ov JFM 6 mR07.9 Chest pain, [id number] Essential (primary) lukyqkjvnkzmZ61.0 Atrioventricular block, first fpuifkJ50.18 Myalgia, other siteNew Medication:Coenzyme Q-10 200 mg - once dailyRecommendations:hold crestor for 2 weeks to see if myalgias improve. Functional Status Description No Information Available Mental Status Description No Information Available Referrals Description No Information Available
--- OUTSIDE RECORDS SUMMARY | 2019-06-25 15:49 | XMS REPORT | Continuity of Care Document ---
:1960 External Reference #:[id number] Author Name Faby Washington PA-C Address [address] [place] [address] Problems Active Problems Provider Date Kidney stone Akin Kang MD Onset: 03/19/2016 Obstructive sleep apnea syndrome Akin Kang MD Onset: 03/19/2016 Gastroesophageal reflux disease Akin Kang MD Onset: 03/19/2016 Hyperlipidemia Akin Kang MD Onset: 03/19/2016 Essential hypertension Akin Kang MD Onset: 03/19/2016 Obstructive sleep apnea of adult Tabitha Lopez NP Onset: 07/31/2014 Sore throat symptom Faby Washington PA-C Onset: 05/10/2019 Social History Type Date Description Comments Sex Unknown Tobacco Use Start: Unknown End: Unknown Patient is a former smoker Smoking Status Reviewed: 05/10/19 Patient is a former smoker Allergies, Adverse Reactions, Alerts Active Allergies Reaction Severity Comments Date Penicillins 09/09/2014 Tetracycline 09/09/2014 Penicillin Anaphylaxis Severe 09/11/2014 Keflex 09/09/2014 Erythromycin 09/09/2014 Contrast Dye 09/09/2014 Dilaudid 03/07/2019 Medications Active Medications SIG Qnty Indications Ordering Date Provider Famotidine 1 tab by mouth 30tabs K21.9 Jim D. 04/09/2019 40mg Tablets daily [facility] Sucralfate 10ml PO four 400ml [...] DR meals Dexilant 1 by mouth bid 60caps Jim Payne, 04/02/2019 - 60mg Capsules at least [...] Older Vital Signs Date Vital Result Comment 05/10/2019 2:14pm Height 71 inches 5'11" BP Systolic 165 mmHg BP Diastolic 86 mmHg Heart Rate 61 /min 04/09/2019 1:14pm Height 71 inches 5'11" Weight 362.00 lb BMI (Body Mass Index) 50.5 kg/m2 Results Test Acquired Facility Test Result [...] Date Location Provider Dx Diagnosis Office Visit 04/09/2019 [facility] Faby Nguyen K21.9 Gastro- esophageal 1:[facility]p [facility] [place] reflux disease without esophagitis Office Visit 03/07/2019 Gastroenter[facility] Faby Nguyen K21.9 [facility] disease without esophagitis Assessments Date Code Description Provider 05/10/2019 K21.9 Gastro-esophageal reflux disease without Faby Washington PA-C esophagitis 05/10/2019 R07.0 Pain in throat Faby Washington PA-C 04/09/2019 K21.9 Gastro-esophageal reflux disease without LATOYA Garrett-Jennifer esophagitis 03/07/2019 K21.9 Gastro-esophageal reflux disease without LATOYA Garrett-Jennifer esophagitis Plan of Treatment Future Appointment(s):08/09/2019 2:00 pm - Faby Washington PA-C at [facility]05/10/2019 - ANTONINO Garrett CK21.9 Gastro-esophageal reflux disease without oqrgbtafcpeX83.0 Pain in throat Functional Status Description No Information Available Mental Status Description No Information Available Referrals Description No Information Available
--- OUTSIDE RECORDS SUMMARY | 2019-06-25 15:49 | XMS REPORT | Continuity of Care Document ---
:1960 External Reference #:[id number] Author Name Félix Marcus NP (transmitted by agent of provider Dee Alexander) Address [address], [place] [address] Care Team Providers Name Role Phone Lennox Anderson MD - Urology Care Team Information Flatwork Finisher [phone] [facility] - Care Team Information Flatwork Finisher Intel Analyst Benjamin Kemp MD - Neurology Care Team Information Flatwork Finisher [phone] Laura Wu MD - Care Team Information Flatwork Finisher [phone] Dermatology Sarah Alvarez, PhD. - Clinical Care Team Information Flatwork Finisher Rei Juares MD - Ophthalmology Care Team Information Flatwork Finisher Mk Lowe MD - Care Team Information Flatwork Finisher [phone] Otolaryngology Yovani Veliz MD - Infectious Care Team Information Flatwork Finisher Disease Darius Corral MD - Internal Care Team Information Flatwork Finisher Medicine Félix Marcus NP - Internal Medicine Care Team Information Flatwork Finisher [phone] Problems Active Problems Provider Date Obstructive sleep apnea of adult Tabitha Lopez DNP, RN, Onset: 07/31/2014 [facility]- Essential hypertension Akin Kang M.D. [...] Onset: 05/26/2017 Chest pain Selene Mei MD, [facility], Onset: 10/03/2018 [facility] Derangement of [...] Marijuana quit 1985 regularly Smoking Status Reviewed: 06/14/19 Heavy tobacco smoker (more than 10 cigarettes/day) Exercise Type/Frequency Exercises sporadically PT 2x/wk Allergies, Adverse Reactions, Alerts Active Allergies Reaction Severity Comments Date Tricyclic Antidepressants 07/31/2014 Penicillin Anaphylaxis Severe 09/11/2014 Keflex Anaphylaxis Severe 09/11/2014 Tetracycline Anaphylaxis Severe 09/11/2014 Erythromycin Urticaria Moderate 09/11/2014 Imitrex 05/26/2017 Cortisol Succinate 06/05/2019 Medications Active Medications SIG Qnty Indications Ordering Date Provider Coenzyme Q-10 once daily 30caps M79.18 Rob Yan 06/05/2019 200mg Balbir Dozier Capsules Potassium Chloride 1 tablet daily 60tabs Rob Yan 05/17/2019 [facility] Balbir Dozier 20Meq Tablets [...] 1 pair daily as 2Pair I87.2 Rob Yna 03/12/2015 15-20MMHG/Knee needed Balbir Dozier High/Closed Toe/Large [...] Tablets capsule/tablet by mouth bid History Medications Levothyroxine Sodium 1 by mouth Rob Yan 06/05/2019 - 25mcg every day Balbir Dozier 06/14/2019 Tablets Pantoprazole Sodium 1 by mouth 30tabs Félix Marcus NP 03/05/2019 - 40mg every day 04/02/2019 Tablets Medications Administered in Office Medication SIG Qnty Indications Ordering Provider Date Depomedrol 40MG RAKESH Mcmullen 09/21/2018 Injection Immunizations CPT Code Status Date Vaccine Lot # [id number] Given 02/21/2018 Influenza Virus Vaccine, Quadrivalent, Split, Preservative Free [id number] Given 07/31/2014 Fluvirin Im 3Yrs And Older Vital Signs Date Vital Result Comment 06/14/2019 1:18pm Height 71 inches 5'11" Weight 367.00 lb Heart Rate 64 /min BP Systolic 133 mmHg BP Diastolic 73 mmHg Body Temperature 98.0 F O2 % BldC Oximetry 96 % BMI (Body Mass Index) 51.2 kg/m2 06/05/2019 2:53pm Height 71 inches 5'11" Weight 365.00 lb with shoes Heart Rate 62 /min left radial BP Systolic Sitting 152 mmHg left radial BP Diastolic Sitting 78 mmHg left radial BP Systolic Standing 126 mmHg BP Diastolic Standing 74 mmHg BMI (Body Mass Index) 50.9 kg/m2 Ejection Fraction 55-60% Echo 10/19/18 Results Test Acquired Date Facility Test Result H/L Range Note Basic Metabolic 05/24/2019 [facility] Sodium 140 mmol/L Normal 135-145 1 [address] [place] [address] [phone] Potassium 4.2 mmol/L Normal 3.5-5.0 Chloride 104 mmol/L Normal 101-111 Co2 Carbon Dioxide 27 mmol/L Normal 22-32 Anion Gap 9 mmol/L Normal 2-11 Glucose 152 mg/dL High 70-100 Blood Urea Nitrogen 13 mg/dL Normal 6-24 Creatinine 0.94 mg/dL Normal 0.67-1.17 BUN/Creatinine Ratio 13.8 Normal 8-20 Calcium 9.4 mg/dL Normal 8.6-10.3 Egfr Non- 81.6 >60 Egfr 98.7 >60 2 Laboratory test 05/24/2019 [facility] Magnesium 1.8 mg/dL Low 1.9-2.[address] [place] [address] [phone] Laboratory test 05/15/2019 [facility] Troponin-I 0.01 <0.03 4 finding 101 (TnI) ng/[place] [address] [phone] CBC Auto Diff 05/15/2019 [facility] White Blood 8.0 Normal 3.5 -10.8 Count 10^3/[place] [address] [phone] Red Blood Count 4.80 10^6/uL Normal 4.18-5.48 [...] Blood Cells % 0.0 Comp Metabolic 05/15/2019 [facility] Sodium 138 mmol/L Normal 135-[address] [place] [id number] [phone] Potassium 3.4 mmol/L Low 3.5-5.0 Chloride 102 [...] >60 Egfr 84.1 >60 5 Laboratory 05/15/2019 [facility] TSH (Thyroid 2.01 Normal 0.34 -5.60 test finding [address] Stim Horm) mcIU/[place] [address] [phone] Troponin-I (TnI) 0.01 ng/mL <0.03 6 Lipid Profile 04/05/2019 [facility] Triglycerides 122 mg/dL 7 (Trig/Chol/HDL) [address] [place] [address] [phone] Cholesterol 144 mg/dL 8 HDL Cholesterol 40.4 mg/dL 9 LDL Cholesterol 79 mg/dL 10 Laboratory test 04/05/2019 [facility] TSH (Thyroid 7.50 High 0.34-5.[address] Stim Horm) mcIU/mL [place], [place] [id number] [phone] Hemoglobin A1c (Glyco HGB) 5.7 % High 4.0-5.6 12 Laboratory 04/01/2019 [facility] Troponin-I 0.00 <0.[address] (TnI) ng/mL [place], [place] [id number] [phone] Inr/Protime 03/31/2019 [facility] Inr 1.00 Normal 0.82-1.[address] [place] [address] [phone] Laboratory 03/31/2019 [facility] Lactic Acid 1.9 Normal 0.5- 2.[address] mmol/[place] [address] [phone] Comp Metabolic 03/31/2019 [facility] Sodium 140 Normal 135- [address] mmol/[place] [address] [phone] Potassium 3.9 mmol/L Normal 3.5-5.0 Chloride 103 [...] Egfr 84.1 >60 16 Laboratory test 03/31/2019 [facility] Troponin-I (TnI) 0.01 ng/ mL <0.03 [address] [place] [address] [phone] B-Type Natriuretic Peptide BNP 46 pg/mL <=100 CBC Auto 03/01/2019 [facility] White Blood 7.0 10^3/uL Normal 3.5-10.[address] [place] [address] [phone] Red Blood Count 5.02 10^6/uL Normal 4.18-5.48 [...] Blood Cells % 0.0 Laboratory test 03/01/2019 [facility] Magnesium 1.9 mg/dL Normal 1.9-2.[address] [place] [address] [phone] Troponin-I (TnI) 0.01 ng/mL <0.04 18 Lactic Acid 1.8 mmol/L Normal 0.5-2.0 19 Comp Metabolic 03/01/2019 [facility] Sodium 139 mmol/L Normal 135-145 Panel [address] [place] [address] [phone] Potassium 3.8 mmol/L Normal 3.5-5.0 Chloride 103 [...] >60 Egfr 75.2 >60 20 Laboratory 01/31/2019 [facility] Troponin-I 0.00 <0.04 21 test finding 101 (TnI) ng/[place] [address] [phone] CBC Auto Diff 01/30/2019 [facility] White Blood 7.7 Normal 3.5 -10.[address] Count 10^3/[place] [address] [phone] Red Blood Count 5.12 10^6/uL Normal 4.18-5.48 [...] Blood Cells % 0.1 Inr/Protime 01/30/2019 [facility] Inr 0.96 Normal 0.82-1.09 22 [address] [place] [address] [phone] Comp Metabolic 01/30/2019 [facility] Sodium 138 mmol/L Normal 135-145 Panel [address] [place] [address] [phone] Potassium 3.9 mmol/L Normal 3.5-5.0 Chloride 104 [...] Egfr 75.2 >60 23 Laboratory test 01/30/2019 [facility] Troponin-I (TnI) 0.00 ng/ mL <0.04 [address] [place] [address] [phone] B-Type Natriuretic Peptide BNP 25 pg/mL <=100 Laboratory 01/07/2019 [facility] Troponin-I 0.00 <0.04 25 test finding [address] (TnI) ng/[place] [address] [phone] CBC Auto Diff 01/07/2019 [facility] White Blood 6.8 Normal 3.5 -10.[address] Count 10^3/[place] [address] [phone] Red Blood Count 5.17 10^6/uL Normal 4.18-5.48 [...] Blood Cells % 0.0 Inr/Protime 01/07/2019 [facility] Inr 1.01 Normal 0.82-1.[address] [place] [address] [phone] Laboratory test 01/07/2019 [facility] B-Type 38 <=[address] Natriuretic pg/[place] [address] Peptide BNP [phone] Comp Metabolic 01/07/2019 [facility] Co2 Carbon 24 Normal 22- [address] Dioxide mmol/[place] [address] [phone] Calcium 9.4 mg/dL Normal 8.6-10.3 Albumin 4.5 [...] mmol/L Normal 2-11 Laboratory test 01/07/2019 [facility] Troponin-I (TnI) 0.00 ng/ mL <0.04 [address] [place] [address] [phone] 1 in 1 week 2 Because ethnic [...] immediately to secondary confirmatory testing. Using the Pzoom DxI 800 Access Immunoassay systems, the 99th [...] in selective patients <6.0%. Please refer to [employer] diabetic care guidelines for further [...] High intensity warfarin therapeutic range: 2.5-3.[address] [facility] Severe Sepsis and Septic Shock Management [...] immediately to secondary confirmatory testing. Using the Pzoom DxI 800 Access Immunoassay systems, the 99th [...] demonstrated to be < 0.03 ng/mL. [address] [facility] Severe Sepsis and Septic Shock Management [...] immediately to secondary confirmatory testing. Using the P[employer] DxI 800 Access Immunoassay systems, the 99th [...] immediately to secondary confirmatory testing. Using the Pzoom DxI 800 Access Immunoassay systems, the 99th percentile upper reference limit was demonstrated to be < 0.03 ng/mL. 25 Troponin-I testing on Plasma Separator Tubes (PST) has a known false positive rate of 0.20-0.40%. All positive troponins reflex immediately to secondary confirmatory testing. Using the Pzoom DxI 800 Access Immunoassay systems, the 99th [...] immediately to secondary confirmatory testing. Using the P[employer] DxI 800 Access Immunoassay systems, the 99th percentile upper reference limit was demonstrated to be < 0.03 ng/mL. Procedures Date Code Description Status 06/05/2019 94659 EKG Tracing & Interpretation Completed 05/03/2019 67565 Holter Monitor Review (24 hr)dr review & interp only Completed 05/02/2019 37629 ECG Monitor/Recording W/Visual Superimposition Completed Scanning 05/02/2019 07942 ECG Monitor/Recording W/Visual Superimposition Completed Scanning 04/03/2019 52292 EKG Tracing & Interpretation Completed 05/24/2017 [id number] Diabetic Retinal Eye Exam Completed Medical Devices Description No Information Available Encounters Type Date Location Provider Dx Diagnosis Office Visit 06/05/2019 [place] Dev Dozier, R00.2 Palpitations 2:40p M.D. I51.81 Takotsubo syndrome R07.9 Chest pain, unspecified I10 Essential (primary) hypertension I44.0 Atrioventricular block, first degree M79.18 Myalgia, other site Office Visit 04/03/2019 [place] Epifanio Joaquin M22.2x2 Patellofemoral 3:00p [facility]oped[facility] at [facility] disorders, left [place] knee M25.562 Pain in left knee M54.5 Low back pain Office Visit 04/03/2019 12:00p [place] [facility] Jayshree Koehler G47.33 Obstructive sleep Of Executive Candidate Developer Marcos N.P. apnea (adult) (pediatric) I51.81 Takotsubo syndrome R07.9 Chest pain, unspecified R06.00 Dyspnea, unspecified I10 Essential (primary) hypertension R00.2 Palpitations Z68.42 Body mass index (BMI) 45.0-49.9, adult Office Visit 02/01/2019 Joe Joaquin M22.2x2 Patellofemoral 1:30p Orthopedics at [facility] disorders, left [place] knee M25.562 Pain in left knee M54.5 Low back pain Office Visit 01/11/2019 Joe Joaquin M22.2x2 Patellofemoral 2:30p [facility]oped[facility] at [facility], left [place] knee 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, left knee M54.5 Low back pain M54.5 Low back pain Assessments Date Code Description Provider 06/14/2019 Z00.00 Encounter for general adult medical Félixloida Marcus NP examination without abnormal findings 06/14/2019 I10 Essential (primary) hypertension Félixloida Marcus NP 06/14/2019 G47.33 Obstructive sleep apnea (adult) Félixloida Marcus NP (pediatric) 06/14/2019 E03.9 Hypothyroidism, unspecified Félix Angeline, VERONIKA 06/14/2019 F41.9 Anxiety disorder, unspecified Félix Angeline, VERONIKA 06/14/2019 Z12.5 Encounter for screening for malignant Félix VERONIKA Marcus neoplasm of prostate 06/14/2019 D48.5 Neoplasm of uncertain behavior of skin Félixloida Marcus NP 06/14/2019 M79.10 Myalgia, unspecified site Félix VERONIKA Marcus 06/05/2019 R00.2 Palpitations Rob Dozier M.D. 06/05/2019 I51.81 Takotsubo cardiomyopathy Rob Dozier M.D. 06/05/2019 R07.9 Chest pain, unspecified Rob Dozier M.D. 06/05/2019 I10 Essential (primary) hypertension Rob Dozier M.D. 06/05/2019 I44.0 Atrioventricular block, first degree Rob Dozier M.D. 06/05/2019 M79.18 Myalgia, other site Rob Dozier M.D. 05/03/2019 R00.2 Palpitations Rob Dozier M.D. 05/02/2019 R00.2 Palpitations Rob Dozier M.D. 05/02/2019 [...] MD 04/03/2019 R07.9 Chest pain, unspecified Jayshree Rodríguez, N.P. 04/03/2019 R06.00 Dyspnea, unspecified Jayshree Rodríguez N.P. 04/03/2019 I10 Essential (primary) hypertension Jayshree Rodríguez N.P. 04/03/2019 R00.2 Palpitations Jayshree Rodríguez N.P. 04/03/2019 Z68.42 Body mass index (BMI) 45.0-49.9, adult Jayshree Rodríguez N.P. 02/01/2019 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, left knee [...] Epifanio Jack MD Plan of Treatment Future Appointment(s):06/16/2020 1:00 pm - Félix Marcus NP at [facility] Internal Medicine - [facility]07/16/2019 1:00 pm - [place] [facility]CHO Schedule at [facility]06/14/2019 - Félix Marcus NPZ00.00 Encounter for general adult medical examination without abnormal findingsComments:VACCINES:Flu shot every year in the fall.We do not have a record of your last tetanus vaccine. A booster is recommended every 10 years. Shingles: Shingrix recommended in all people 50 and over. This is available at pharmacies.SCREENING:Cholesterol and fasting glucose: Yearly.Colon cancer:Screening recommended to start at age 50. Colonoscopy is the best test. Other options are the Cologuard or Hemosure. Prostate cancer: PSA blood test yearly if you have a first degree relative with prostate cancer or if you are having symptoms. Screening for glaucoma: every 2 years unless otherwise instructed by your eye [id number] Essential (primary) hypertensionComments:HYPERTENSION:Well controlled on current regimen. Continue present management.G47.33 Obstructive sleep apnea (adult) (pediatric)E03.9 Hypothyroidism, unspecifiedComments:Continue on current dose of levothyroxine.F41.9 Anxiety disorder, ugbctwilcdcF55.5 Encounter for screening for malignant neoplasm of ukmogkddV83.5 Neoplasm of uncertain behavior of skinReferral:Laura Wu MD, KondtfstqweV13.10 Myalgia, unspecified site Functional Status Description No Information Available Mental Status Description No Information Available Referrals Refer to Reason for Referral Status Appt Date Laura Wu MD Created [address] [place] [address] [phone]
--- OUTSIDE RECORDS SUMMARY | 2019-06-25 15:49 | XMS REPORT | Continuity of Care Document ---
:1960 External Reference #:[id number] Author Name Everardo Noel Care Team Providers Name Role Phone Lennox Anderson MD - Urology Care Team Information Sales Agent [employer] [phone] [facility] - Care Team Information Sales Agent [employer] [phone] [employer] Benjamin Kemp MD - Neurology Care Team Information Sales Agent [employer] [phone] Laura Wu MD - Care Team Information Sales Agent [employer] [phone] Dermatology Sarah Alvarez, PhD. - Clinical Care Team Information Sales Agent [employer] Rei Juares MD - Ophthalmology Care Team Information Sales Agent [employer] [phone] Mk Lowe MD - Care Team Information Sales Agent [employer] [phone] Otolaryngology Yovani Veliz MD - Infectious Care Team Information Sales Agent [employer] Disease Darius Corral MD - Internal Care Team Information Sales Agent [employer] Medicine Félix Marcus NP - Internal Medicine Care Team Information Sales Agent [employer] Problems Active Problems Provider Date Obstructive sleep apnea of adult Tabitha Lopez DNP, RN, Onset: 07/31/2014 [facility] Essential hypertension Akin Kang M.D. Onset: 03/19/2016 [...] Onset: 05/26/2017 Chest pain Selene Mei MD, [facility], Onset: 10/03/2018 [facility] Derangement of knee [...] Medications SIG Qnty Indications Ordering Date Provider Potassium Chloride 1 tablet daily 60tabs Rob Yan 05/17/2019 Susie ER Balbir Dozier 20Meq Tablets ER Levothyroxine Sodium 1 by mouth every 15tabs Félix Marcus NP 04/11/2019 other day (in 25mcg Tablets addition to 200mcg tablet) Acetaminophen-Codeine 1-2 tablets every 28tabs M25.562 Félix Marcus NP #3 12 hours as needed 300-30mg Tablets Sertraline HCL Take 1 And 1/2 45tabs F41.9 Félix Marcus NP 10/09/2018 100mg Tablets By Mouth Tablets Once A Day In Addition To 25 Milligram Tablet Nitroglycerin 1 sl q5 mins x3 as [...] I87.2 Rob Yan 03/12/2015 15-20MMHG/Knee needed Balbir Dzoier High/Closed Toe/Large Misc Magnesium Oxide 1 by [...] CPT Code Status Date Vaccine Lot # [id number] Given 02/21/2018 Influenza Virus Vaccine, Quadrivalent, Split, [...] Result H/L Range Note Basic Metabolic 05/24/2019 [facility] Sodium 140 mmol/L Normal 135-145 1 Panel [address] [place] [address] [phone] Potassium 4.2 mmol/L Normal 3.5-5.0 Chloride 104 mmol/L Normal 101-111 Co2 Carbon Dioxide 27 mmol/L Normal 22-32 Anion Gap 9 mmol/L Normal 2-11 Glucose 152 mg/dL High 70-100 Blood Urea Nitrogen 13 mg/dL Normal 6-24 Creatinine 0.94 mg/dL Normal 0.67-1.17 BUN/Creatinine Ratio 13.8 Normal 8-20 Calcium 9.4 mg/dL Normal 8.6-10.3 Egfr Non- 81.6 >60 Egfr 98.7 >60 2 Laboratory test 05/24/2019 [facility] Magnesium 1.8 mg/dL Low 1.9-2.[address] [place] [address] [phone] Laboratory test 05/15/2019 [facility] Troponin-I 0.01 <0.03 4 finding 101 [facility] (TnI) ng/[place] [address] [phone] CBC Auto Diff 05/15/2019 [facility] White Blood 8.0 Normal 3.5 -10.[address] Count 10^3/[place] [address] [phone] Red Blood Count 4.80 10^6/uL Normal 4.18-5.48 [...] Blood Cells % 0.0 Comp Metabolic 05/15/2019 [facility] Sodium 138 mmol/L Normal 135-[address] [place] [address] [phone] Potassium 3.4 mmol/L Low 3.5-5.0 Chloride 102 [...] >60 Egfr 84.1 >60 5 Laboratory 05/15/2019 [facility] TSH (Thyroid 2.01 Normal 0.34 -5.60 test finding [address] Stim Horm) mcIU/[place] [address] [phone] Troponin-I (TnI) 0.01 ng/mL <0.03 6 Order 05/02/2019 [facility] Holter Monitor <pending> [address] [place] [address] [phone] Lipid Profile 04/05/2019 [facility] Triglycerides 122 mg/dL 7 (Trig/Chol/HDL) [place] [address] [phone] Cholesterol 144 mg/dL 8 HDL Cholesterol 40.4 mg/dL 9 LDL Cholesterol 79 mg/dL 10 Laboratory test 04/05/2019 [facility] TSH (Thyroid 7.50 High 0.34-5.60 11 finding Stim Horm) mcIU/[place] [address] [phone] Hemoglobin A1c (Glyco HGB) 5.7 % High 4.0-5.6 12 Laboratory 04/01/2019 [facility] Troponin-I 0.00 <0.03 13 test finding (TnI) ng/[place] [address] [phone] Inr/Protime 03/31/2019 [facility] Inr 1.00 Normal 0.82-1.09 14 [place] [address] [phone] Laboratory 03/31/2019 [facility] Lactic Acid 1.9 Normal 0.5- 2.0 15 test finding mmol/[place] [address] [phone] Comp Metabolic 03/31/2019 [facility] Sodium 140 Normal 135- 145 Panel mmol/[place] [address] [phone] Potassium 3.9 mmol/L Normal 3.5-5.0 Chloride 103 [...] Egfr 84.1 >60 16 Laboratory test 03/31/2019 [facility] Troponin-I (TnI) 0.01 ng/ mL <0.03 17 finding [address] [place] [address] [phone] B-Type Natriuretic Peptide BNP 46 pg/mL <=100 Comp Metabolic 03/01/2019 [facility] Sodium 139 mmol/L Normal 135-145 Panel [address] [place] [address] [phone] Potassium 3.8 mmol/L Normal 3.5-5.0 Chloride 103 [...] Egfr Non- 62.1 >60 Egfr 75.2 >60 18 Laboratory test 03/01/2019 [facility] Magnesium 1.9 mg/dL Normal 1.9-2.7 finding [address] [place] [address] [phone] Troponin-I (TnI) 0.01 ng/mL <0.04 19 Lactic Acid 1.8 mmol/L Normal 0.5-2.0 20 CBC Auto 03/01/2019 [facility] White Blood 7.0 10^3/uL Normal 3.5-10.[address] [place] [address] [phone] Red Blood Count 5.02 10^6/uL Normal 4.18-5.48 [...] Nucleated Red Blood Cells % 0.0 Laboratory 01/31/2019 [facility] Troponin-I 0.00 <0.04 21 test finding [address] (TnI) ng/[place] [address] [phone] CBC Auto Diff 01/30/2019 [facility] White Blood 7.7 Normal 3.5 -10.[address] Count 10^3/[place] [address] [phone] Red Blood Count 5.12 10^6/uL Normal 4.18-5.48 [...] Red Blood Cells % 0.1 Inr/Protime 01/30/2019 [facility] Inr 0.96 Normal 0.82-1.09 22 [address] [place] [address] [phone] Comp Metabolic 01/30/2019 [facility] Sodium 138 mmol/L Normal 135-145 Panel [address] [place] [address] [phone] Potassium 3.9 mmol/L Normal 3.5-5.0 Chloride 104 [...] Egfr 75.2 >60 23 Laboratory test 01/30/2019 [facility] Troponin-I (TnI) 0.00 ng/ mL <0.04 24 finding [address] [place] [address] [phone] B-Type Natriuretic Peptide BNP 25 pg/mL <=100 Laboratory 01/07/2019 [facility] Troponin-I 0.00 <0.04 25 test finding [address] (TnI) ng/mL [place], [place] [address] [phone] CBC Auto Diff 01/07/2019 [facility] White Blood 6.8 Normal 3.5 -10.[address] Count 10^3/[place] [address] [phone] Red Blood Count 5.17 10^6/uL Normal 4.18-5.48 [...] Red Blood Cells % 0.0 Inr/Protime 01/07/2019 [facility] Inr 1.01 Normal 0.82-1.[address] [place] [address] [phone] Laboratory test 01/07/2019 [facility] B-Type 38 <=[address] Natriuretic pg/[place] [address] Peptide BNP [phone] Comp Metabolic 01/07/2019 [facility] Co2 Carbon 24 Normal 22- [address] Dioxide mmol/[place] [address] [phone] Calcium 9.4 mg/dL Normal 8.6-10.3 Albumin 4.5 [...] 10 mmol/L Normal 2-11 Laboratory test 01/07/2019 [facility] Troponin-I (TnI) 0.00 ng/ mL <0.04 28 finding [address] [place] [address] [phone] 1 in 1 week 2 Because ethnic [...] immediately to secondary confirmatory testing. Using the [employer] PBC 800 Access Immunoassay systems, the 99th percentile [...] immediately to secondary confirmatory testing. Using the [employer] DxI 800 Access Immunoassay systems, the 99th [...] in selective patients <6.0%. Please refer to [place] [employer] diabetic care guidelines for further information. 13 Troponin-I testing on Plasma Separator Tubes (PST) has a known false positive rate of 0.20-0.40%. All positive troponins reflex immediately to secondary confirmatory testing. Using the [employer] Cloud DxI 800 Access Immunoassay systems, the 99th percentile upper reference limit was demonstrated to be < 0.03 ng/mL. 14 Standard intensity warfarin therapeutic range: 2.0-3.0 High intensity warfarin therapeutic range: 2.5-3.5 15 [place] Severe Sepsis and Septic Shock Management Bundle [...] immediately to secondary confirmatory testing. Using the [employer] DxI 800 Access Immunoassay systems, the 99th percentile upper reference limit was demonstrated to be < 0.03 ng/mL. 18 Because ethnic data is not always readily [...] 15-29 5 Kidney failure <15 (or dialysis) 19 Troponin-I testing on Plasma Separator Tubes (PST) has a known false positive rate of 0.20-0.40%. All positive troponins reflex immediately to secondary confirmatory testing. Using the [employer] DxI 800 Access Immunoassay systems, the 99th percentile upper reference limit was demonstrated to be < 0.03 ng/mL. 20 [facility] Severe Sepsis and Septic Shock Management Bundle Measure requires all lactic acids initially measuring >2.0 mmol/L be repeated. 21 Troponin-I testing on Plasma Separator Tubes (PST) has a known false positive rate of 0.20-0.40%. All positive troponins reflex immediately to secondary confirmatory testing. Using the [employer] DxI 800 Access Immunoassay systems, the 99th [...] immediately to secondary confirmatory testing. Using the [employer] DxI 800 Access Immunoassay systems, the 99th percentile upper reference limit was demonstrated to be < 0.03 ng/mL. 25 Troponin-I testing on Plasma Separator Tubes (PST) has a known false positive rate of 0.20-0.40%. All positive troponins reflex immediately to secondary confirmatory testing. Using the [employer] DxI 800 Access Immunoassay systems, the 99th [...] immediately to secondary confirmatory testing. Using the [employer]xtI 800 Access Immunoassay systems, the 99th percentile upper reference limit was demonstrated to be < 0.03 ng/mL. Procedures Date Code Description Status 05/03/2019 07627 Holter Monitor Review (24 hr)dr uli & interp only Completed 05/02/2019 62128 ECG Monitor/Recording W/Visual Superimposition Completed Scanning 05/02/2019 99565 ECG Monitor/Recording W/Visual Superimposition Completed Scanning 04/03/2019 30640 EKG Tracing & Interpretation Completed 05/24/2017 [id number] Diabetic Retinal Eye Exam Completed Medical Devices Description No Information Available Encounters Type Date Location Provider Dx Diagnosis Office Visit 04/03/2019 [facility] Epifanio F M22.2x2 Patellofemoral 3:00p at [facility] disorders, left knee M25.562 Pain in left knee M54.5 Low back pain Office Visit 04/03/2019 12:00p [facility] Jayshree Koehler G47.33 Obstructive sleep Of [employer] Kirk Rodríguez. apnea (adult) (pediatric) I51.81 Takotsubo syndrome R07.9 Chest pain, unspecified R06.00 Dyspnea, unspecified I10 Essential (primary) hypertension R00.2 Palpitations Z68.42 Body mass index (BMI) 45.0-49.9, adult Office Visit 02/01/2019 Joe Joaquin M22.2x2 Patellofemoral 1:30p [facility]oped[facility] at [facility] disorders, left [facility] knee M25.562 Pain in left knee M54.5 Low back pain Office Visit 01/11/2019 Joe Joaquin M22.2x2 Patellofemoral 2:30p [facility]oped[facility] at [facility] disorders, left [facility] knee 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, left knee M54.5 Low back pain M54.5 Low back pain Assessments Date Code Description Provider 05/03/2019 R00.2 Palpitations Rob Dozier M.D. 05/02/2019 R00.2 Palpitations Rob Dozier M.D. 05/02/2019 R00.2 Palpitations Nurse Visit cc 04/03/2019 I44.0 Atrioventricular block, first degree Rob Dozier M.D. 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 (pediatric) 04/03/2019 M25.562 Pain in left knee Epifanio Jack MD 04/03/2019 I51.81 Takotsubo cardiomyopathy Jayshree Rodríguez, N.P. 04/03/2019 M54.5 Low back pain Epifanio Jack MD 04/03/2019 R07.9 Chest pain, unspecified Jayshree Rodríguez N.P. 04/03/2019 R06.00 Dyspnea, unspecified Jayshree Rodríguez, N.P. 04/03/2019 I10 Essential (primary) hypertension Jayshree Rodríguez N.P. 04/03/2019 R00.2 Palpitations Jayshree Rodríguez, N.P. [...] Epifanio Jack MD Plan of Treatment Future Appointment(s):06/14/2019 1:00 pm - [facility] Epifanio Jack, MD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, left kneeNew Therapy:Physical TherapyFollow up:Follow up: 2 hwttehJ54.562 Pain in left kneeM54.5 Low back pain Functional Status Description No Information Available Mental Status Description No Information Available Referrals Description No Information Available
[2019-06-25] MEDS ORDERED: Diazepam TAB(*) 5 MG PO ONE ×2 (16:24→17:44)
[2019-06-25] MEDS ORDERED: Lidocaine PATCH 5%* 1 PATCH TRANSDERM ONE ×2 (16:24→20:20)
--- NOTE | 2019-06-25 16:25 | ED ---
Back Pain - HPI Summary HPI Summary: 59-year-old male presents with back pain for the past 3 days. States he's been doing PT for pain in his leg and developed the pain after. States has spasm right side of back. No numbness or tingling. No loss of bowel or bladder. No saddle anesthesias. No fevers. Had took some Valium and Tylenol for the pain which helped a little. Has a history of cardiomyopathy and can't take NSAIDs. no fevers. no history of back pain. no urinary symptoms. he works as an [employer]. - History of Current Complaint Chief Complaint: EDBackInjuryPain Stated Complaint: BACK SPASMS PER PT Time Seen by Provider: 06/25/19 16:11 Pain Intensity: 10 - Allergies/Home Medications Allergies/Adverse Reactions: Allergies Allergy/AdvReac Type Severity Reaction Status Date / Time hydromorphone Allergy Severe Altered Verified 06/25/19 15:19 Mental Status cephalexin Allergy Intermediate Hives Verified 06/25/19 15:19 erythromycin base Allergy Intermediate Hives Verified 06/25/19 15:19 Penicillins Allergy Intermediate Hives Verified 06/25/19 15:19 Tetracyclines Allergy Intermediate Hives Verified 06/25/19 15:19 cortisone Allergy CARDIOMYOPA Verified 06/25/19 15:19 THY Iodinated Contrast Media Allergy See Comment Verified 06/25/19 15:19 [Iodinated Contrast- Oral and IV Dye] sumatriptan Allergy Unknown Verified 06/25/19 15:19 Reaction Details Home Medications: Home Medications Epleronone (NF) [Inspra (NF)] 50 mg PO BEDTIME 11/16/17 [History Confirmed 05/15] Magnesium Oxide TAB* [MagOx 400 TAB*] 400 mg PO BID 11/16/17 [History Confirmed 05/15/19] Rosuvastatin (NF) [Crestor (NF)] 2.5 mg PO DAILY 11/16/17 [History Confirmed ] Sertraline* [Zoloft*] 50 mg PO DAILY 11/16/17 [History Confirmed 05/15/19] amLODIPine TAB* [Norvasc 5 mg TAB*] 2.5 mg PO BID 11/16/17 [History Confirmed ] Fluticasone NASAL SPRAY 50MCG* [Flonase NASAL SPRAY 50MCG*] 1 spray BOTH NARES DAILY #1 btl 12/30/17 [Rx Confirmed 05/15/19] Acetaminophen [Acetaminophen Extra Strength] 500 mg PO DAILY PRN 04/09/18 [ History Confirmed 05/15/19] Aspirin [Aspir-Low] 81 mg PO DAILY WITH MEAL 07/18/18 [History Confirmed ] Ondansetron ODT TAB* [Zofran 4 MG Odt TAB*] 4 mg PO Q6H PRN #10 tab.odt [Rx Confirmed 05/15/19] Riboflavin (Vitamin B2) [Riboflavin] 400 mg PO DAILY WITH MEAL 07/18/18 [ History Confirmed 05/15/19] Vitamin B Complex [Super B-50 Complex] 1 each PO DAILY WITH MEAL 07/18/18 [ History Confirmed 05/15/19] Sertraline* [Zoloft*] 100 mg PO BEDTIME 09/22/18 [History Confirmed 05/15/19] Levothyroxine Sodium 225 mcg PO DAILY 09/26/18 [History Confirmed 05/15/19] Metoprolol Succinate XL TAB* [Toprol XL TAB*] 12.5 mg PO DAILY #30 tab.xl [Rx Confirmed 05/15/19] Sucralfate SUSP 1 gm PO QID #400 ml 03/01/19 [Rx Confirmed 05/15/19] Famotidine TAB* [Pepcid 20 MG TAB*] 20 mg PO DAILY 05/15/19 [History Confirmed 05/15/19] Acetaminophen with Codeine [Acetaminophen-Cod #3 Tablet] 1 each PO Q6HR PRN #12 tablet MDD 4 06/25/19 [Rx] Diazepam TAB(*) [Valium TAB(*)] 5 mg PO Q8H PRN #12 tab MDD 3 06/25/19 [Rx] Lidocaine PATCH 5%* [Lidoderm 5% Patch*] 1 patch TRANSDERM DAILY #7 patch [Rx] PMH/Surg Hx/FS Hx/Imm Hx Endocrine/Hematology History: Reports: Hx Thyroid Disease - h/o thyroid storm Denies: Hx Anticoagulant Therapy, Hx Diabetes, Other Endocrine/Hematological Disorders Cardiovascular History: Reports: Hx Atrial Fibrillation, Hx Hypercholesterolemia , Hx Hypertension, Other Cardiovascular Problems/Disorders - ATRIAL FIB 2000 2ndry to thyroid storm Denies: Hx Angina, Hx Coronary Artery Disease, Hx Myocardial Infarction, Hx Pacemaker/ICD, Hx Valvular Heart Disease Respiratory History: Reports: Hx Asthma - exercise induced, Hx Sleep Apnea - CPAP - no humidification (working on it)., Other Respiratory Problems/Disorders - PN X 2 WINTER 2011 Denies: Hx Chronic Obstructive Pulmonary Disease (COPD) GI History: Reports: Hx Gastroesophageal Reflux Disease, Hx Hiatal Hernia, Other GI Disorders - Hx gastritis Denies: Hx Ulcer History: Reports: Hx Kidney Stones Denies: Hx Renal Disease, Other Problems/Disorders Musculoskeletal History: Reports: Hx Arthritis - 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 , arthritis in neck, Other Musculoskeletal History - DJD Sensory History: Reports: Hx Contacts or Glasses Denies: Hx Hearing Aid, Other Sensory Impairments Opthamlomology History: Reports: Hx Contacts or Glasses Denies: Other Sensory Impairments Neurological History: Reports: Hx Headaches - "sinus headaches", Hx Migraine Denies: Hx Dementia, Hx Seizures, Other Neuro Impairments/Disorders Psychiatric History: Reports: Hx Anxiety, Hx Panic Disorder Denies: Hx Substance Abuse, Other Psychiatric Issues/Disorders - Surgical History Surgery Procedure, Year, and Place: [facility] - Immunization History Date of Tetanus Vaccine: utd Date of Influenza Vaccine: fall 2017 Infectious Disease History: No Infectious Disease History: Reports: Hx Clostridium Difficile, Hx Hepatitis - 1985, Hx Shingles Denies: Hx Human Immunodeficiency Virus (HIV), Hx Tuberculosis, Traveled Outside the [place] in Last 30 Days - Family History Known Family History: Positive: Hypertension - Social History Alcohol Use: None Alcohol Amount: quit 1985 Hx Substance Use: Yes - none currently Substance Use Type: Reports: None Substance Use Comment - Amount & Last Used: quit 1985 Hx Tobacco Use: Yes - not currently Smoking Status (MU): Former Smoker Have You Smoked in the Last Year: No Review of Systems Negative: Fever Negative: Chest Pain Negative: Shortness Of Breath Positive: Myalgia - back pain All Other Systems Reviewed And Are Negative: Yes Physical Exam Triage Information Reviewed: Yes Vital Signs On Initial Exam: Initial Vitals Temp Pulse Resp BP Pulse Ox 99.0 F 73 20 160/69 97 06/25/19 15:18 06/25/19 15:18 06/25/19 15:18 06/25/19 15:18 06/25/19 15:18 Vital Signs Reviewed: Yes Appearance: Positive: Well-Appearing Skin: Positive: Warm, Dry Head/Face: Positive: Normal Head/Face Inspection Eyes: Positive: Normal, Conjunctiva Clear ENT: Positive: Pharynx normal Respiratory/Lung Sounds: Positive: Clear to Auscultation, Breath Sounds Present Cardiovascular: Positive: Normal, RRR Musculoskeletal: Positive: Limited @ - back, Other - tenderness lower back L3-L5 , tenderness greatest on right side of lower back, neg SLR, good pulses, sensation grossly intact, muscle spasm felt on exam Neurological: Positive: Normal, Normal Gait Psychiatric: Positive: Normal Procedures - Sedation Patient Received Moderate/Deep Sedation with Procedure: No Diagnostics - Vital Signs Vital Signs Temp Pulse Resp BP Pulse Ox 06/25/19 15:18 99.0 F 73 20 160/69 97 - Laboratory Lab Statement: Any lab studies that have been ordered have been reviewed, and results considered in the medical decision making process. - Radiology back Radiology Interpretation Completed By: ED Physician Summary of Radiographic Findings: no fracture, degenerative changes at L1-L2 Re-Evaluation - Re-Evaluation First Eval Re-Evaluation Time: 17:44 Change: Improved Comment: feeling better Second Eval Re-Evaluation Time: 19:54 Comment: ambulated to the bathroom Back Pain Course/Dx - Course Course Of Treatment: 59-year-old male presents with back pain for the past 3 days. States he's been doing PT for pain in his leg and developed the pain after. States has spasm right side of back. No numbness or tingling. No loss of bowel or bladder. No saddle anesthesias. No fevers. Had took some Valium and Tylenol for the pain which helped a little. Has a history of cardiomyopathy and can't take NSAIDs. no fevers. no history of back pain. no urinary symptoms. he works as an [employer]. On exam has tenderness on right-sided lower back. neurovascular intact. We'll give dose of Valium and lidocaine. X- ray shows no fracture. pain was better but not completely done so gave another dose of valium with improvement and patient was able to ambulate in ED. will discharge with tyenlol with codeine and valium and lidoderm. told follow up with primary. patient understand and agrees with plan. - Diagnoses Differential Diagnosis/HQI/PQRI: Positive: Herniated Disc, Strain, Sprain Provider Diagnoses: Back pain Discharge ED - Sign-Out/Discharge Documenting (check all that apply): Patient Departure - Discharge Plan Condition: Good Disposition: HOME Prescriptions: Acetaminophen with Codeine [Acetaminophen-Cod #3 Tablet] 1 each PO Q6HR PRN #12 tablet MDD 4 PRN Reason: Pain - Severe Diazepam TAB(*) [Valium TAB(*)] 5 mg PO Q8H PRN #12 tab MDD 3 PRN Reason: Spasms Lidocaine PATCH 5%* [Lidoderm 5% Patch*] 1 patch TRANSDERM DAILY #7 patch Patient Education Materials: Back Pain (ED) Forms: *Work Release Referrals: Félix Marcus INFORMATICS PHARMACIST [Primary Care Provider] - Additional Instructions: Take valium three times a day Apply lidocaine patches to area for up to 12 hours in one 24 hour period Use Tylenol #3 for pain every 6 hours ice/heat area, move as much as possible Follow up with primary within 5 days Return to ED if develop any new or worsening symptoms - Billing Disposition and Condition Condition: GOOD Disposition: Home - Attestation Statements Provider Attestation: I was available for consult. This patient was seen by the ANITRA. The patient was not presented to, seen by, or examined by me. -Brooke
[2019-06-25] MEDS ORDERED: Acetaminophen TAB* 325 MG PO ONE (18:41)
[2019-06-25] MEDS ORDERED: Lidocaine PATCH 5%* 1 PATCH ONE (20:18)
[2019-06-25 20:29] VITALS: BP 140/76
[2019-06-25] MEDS ORDERED: Lidocaine Patch REMOVE* 1 NOTE MISC SCH ×2 (21:00)
== END 2019-06-25 20:27 | disposition home or self-care (01) ==
LOC: ED 15:15
DX: M54.5 Low back pain (principal); E07.9 Disorder of thyroid, unspecified; E78.00 Pure hypercholesterolemia, unspecified; I10 Essential (primary) hypertension; J45.990 Exercise induced bronchospasm; G47.30 Sleep apnea, unspecified; F41.0 Panic disorder [episodic paroxysmal anxiety]; Z79.82 Long term (current) use of aspirin; Z79.899 Other long term (current) drug therapy; Z88.5 Allergy status to narcotic agent; Z88.0 Allergy status to penicillin; Z88.8 Allergy status to other drugs, medicaments and biological substances; Z88.1 Allergy status to other antibiotic agents; Z91.041 Radiographic dye allergy status; Z87.891 Personal history of nicotine dependence
CPT/HCPCS: 72110; 99282; A9270-GY

== ENCOUNTER 2019-07-09 05:52 | Emergency (ER) | payer OTHER ==
--- NOTE | 2019-07-09 06:11 | ED ---
Palpitations / Dysrhythmia - HPI Summary HPI Summary: 59-year-old male with a significant past medical history of stress cardiomyopathy, anxiety, depression, hypertension, hyperlipidemia presents to the emergency department today complaining of palpitations. 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 Patient states he got home at 0400 this date when he was sitting on his couch and felt his heart racing. Patient states he took his pulse and he was at 112 bpm and decided to come to the emergency department for evaluation. At this time patient is in no acute distress resting comfortably on the stretcher. Patient has no other complaints at this time including fever, cough, shortness of breath, chest pain, abdominal pain, burning urination, nausea, vomiting, diarrhea. Patient denies recent alcohol use or recreational drug use. Patient has no known chronic dysrhythmia. - History of Current Complaint Chief Complaint: EDDysrhythmPalp Time Seen by Provider: 07/09/19 06:01 Hx Obtained From: Patient Onset/Duration: Sudden Onset, Lasting Hours Timing: Constant Severity Initially: Mild Severity Currently: Mild Character: Fast Aggravating: Rest Alleviating: Rest Associated Signs & Symptoms: Negative - Allergy/Home Medications Allergies/Adverse Reactions: Allergies Allergy/AdvReac Type Severity Reaction Status Date / Time hydromorphone Allergy Severe Altered Verified 07/09/19 06:24 Mental Status cephalexin Allergy Intermediate Hives Verified 07/09/19 06:24 erythromycin base Allergy Intermediate Hives Verified 07/09/19 06:24 Penicillins Allergy Intermediate Hives Verified 07/09/19 06:24 Tetracyclines Allergy Intermediate Hives Verified 07/09/19 06:24 cortisone Allergy CARDIOMYOPA Verified 07/09/19 06:24 THY epinephrine Allergy See Comment Verified 07/09/19 06:24 Iodinated Contrast Media Allergy See Comment Verified 07/09/19 06:24 [Iodinated Contrast- Oral and IV Dye] sumatriptan Allergy Unknown Verified 07/09/19 06:24 Reaction Details Home Medications: Home Medications Epleronone (NF) [Inspra (NF)] 25 mg PO BID 11/16/17 [History Confirmed 07/09/19] Magnesium Oxide TAB* [MagOx 400 TAB*] 400 mg PO BID 11/16/17 [History Confirmed 07/09/19] amLODIPine TAB* [Norvasc 5 mg TAB*] 2.5 mg PO BID 11/16/17 [History Confirmed ] Acetaminophen [Acetaminophen Extra Strength] 500 mg PO BID 04/09/18 [History Confirmed 07/09/19] Aspirin [Aspir-Low] 81 mg PO DAILY 07/18/18 [History Confirmed 07/09/19] Vitamin B Complex [Super B-50 Complex] 1 each PO DAILY 07/18/18 [History Confirmed 07/09/19] Sertraline* [Zoloft*] 100 mg PO BID 09/22/18 [History Confirmed 07/09/19] Levothyroxine Sodium 225 mcg PO EVERY OTHER DAY 09/26/18 [History Confirmed ] Metoprolol Succinate XL TAB* [Toprol XL TAB*] 12.5 mg PO DAILY #30 tab.xl [Rx Confirmed 07/09/19] Famotidine TAB* [Pepcid 20 MG TAB*] 20 mg PO DAILY 05/15/19 [History Confirmed 07/09/19] Cholecalciferol TAB* [Vitamin D TAB*] 2,000 units PO DAILY 07/09/19 [History Confirmed 07/09/19] Levothyroxine Sodium 200 mcg PO EVERY OTHER DAY 07/09/19 [History Confirmed ] PMH/Surg Hx/FS Hx/Imm Hx Endocrine/Hematology History: Reports: Hx Thyroid Disease - h/o thyroid storm Denies: Hx Anticoagulant Therapy, Hx Diabetes, Other Endocrine/Hematological Disorders Cardiovascular History: Reports: Hx Atrial Fibrillation, Hx Hypercholesterolemia , Hx Hypertension, Other Cardiovascular Problems/Disorders - ATRIAL FIB 2000 2ndry to thyroid storm Denies: Hx Angina, Hx Coronary Artery Disease, Hx Myocardial Infarction, Hx Pacemaker/ICD, Hx Valvular Heart Disease Respiratory History: Reports: Hx Asthma - exercise induced, Hx Sleep Apnea - CPAP - no humidification (working on it)., Other Respiratory Problems/Disorders - PN X 2 WINTER 2011 Denies: Hx Chronic Obstructive Pulmonary Disease (COPD) GI History: Reports: Hx Gastroesophageal Reflux Disease, Hx Hiatal Hernia, Other GI Disorders - Hx gastritis Denies: Hx Ulcer History: Reports: Hx Kidney Stones Denies: Hx Renal Disease, Other Problems/Disorders Musculoskeletal History: Reports: Hx Arthritis - 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 , arthritis in neck, Other Musculoskeletal History - DJD Sensory History: Reports: Hx Contacts or Glasses Denies: Hx Hearing Aid, Other Sensory Impairments Opthamlomology History: Reports: Hx Contacts or Glasses Denies: Other Sensory Impairments Neurological History: Reports: Hx Headaches - "sinus headaches", Hx Migraine Denies: Hx Dementia, Hx Seizures, Other Neuro Impairments/Disorders Psychiatric History: Reports: Hx Anxiety, Hx Panic Disorder Denies: Hx Substance Abuse, Other Psychiatric Issues/Disorders - Surgical History Surgery Procedure, Year, and Place: [facility] - Immunization History Date of Tetanus Vaccine: utd Date of Influenza Vaccine: fall 2017 Infectious Disease History: No Infectious Disease History: Reports: Hx Clostridium Difficile, Hx Hepatitis - 1985, Hx Shingles Denies: Hx Human Immunodeficiency Virus (HIV), Hx Tuberculosis, Traveled Outside the [place] in Last 30 Days - Family History Known Family History: Positive: Hypertension - Social History Alcohol Use: None Alcohol Amount: quit 1985 Hx Substance Use: Yes - none currently Substance Use Type: Reports: None Substance Use Comment - Amount & Last Used: quit 1985 Hx Tobacco Use: Yes - not currently Smoking Status (MU): Former Smoker Have You Smoked in the Last Year: No Review of Systems Constitutional: Negative Eyes: Negative ENT: Negative Positive: Palpitations. Negative: Chest Pain Respiratory: Negative Gastrointestinal: Negative Genitourinary: Negative Musculoskeletal: Negative Skin: Negative Neurological/Mental Status: Negative Psychological: Normal All Other Systems Reviewed And Are Negative: Yes Physical Exam - Summary Physical Exam Summary: Patient is in no acute distress resting comfortably on the hospital stretcher. Triage Information Reviewed: Yes Vital Signs On Initial Exam: Initial Vitals Temp Pulse Resp BP Pulse Ox 98.9 F 80 18 164/71 98 07/09/19 05:56 07/09/19 05:56 07/09/19 05:56 07/09/19 05:56 07/09/19 05:56 Vital Signs Reviewed: Yes Appearance: Positive: Well-Appearing, No Pain Distress, Well-Nourished Skin: Positive: Warm, Skin Color Reflects Adequate Perfusion Eyes: Positive: EOMI, MARTHA ENT: Positive: Hearing grossly normal Respiratory/Lung Sounds: Positive: Clear to Auscultation, Breath Sounds Present Cardiovascular: Positive: RRR, S1, S2 Abdomen Description: Positive: Nontender, Soft Bowel Sounds: Positive: Present Musculoskeletal: Positive: Strength/ROM Intact Neurological: Positive: Sensory/Motor Intact, Alert, Oriented to Person Place, Time, Normal Gait, Facial Symmetry, Speech Normal Psychiatric: Positive: Normal, Affect/Mood Appropriate AVPU Assessment: Alert Procedures - Sedation Patient Received Moderate/Deep Sedation with Procedure: No Diagnostics - Vital Signs Vital Signs Temp Pulse Resp BP Pulse Ox 07/09/19 05:56 98.9 F 80 18 164/71 98 - Laboratory Result Diagrams: 07/09/19 06:45 07/09/19 07:35 Lab Statement: Any lab studies that have been ordered have been reviewed, and results considered in the medical decision making process. Course/Dx - Course Course Of Treatment: Patient was evaluated in the emergency department today for palpitations. Vitals noted and stable. EKG was done promptly which shows No evidence of STEMI, normal sinus rhythm at a rate of 71 bpm. Normal axis, AL , QTc interval. Normal R-wave progression noted in lead V2. No significant EKG changes when compared to prior done on 05/15/19. Laboratory studies were done which showed no evidence of infection or significant electrolyte problems. Patient has no evidence of significant pathology or evidence of dysrhythmia. Patient discharged to outpatient follow-up. - Diagnoses Differential Diagnosis/HQI/PQRI: Positive: AV Block, Cardiomyopathy, Hypokalemia , Medication Induced, Panic Disorder, Paroxymal SVT Provider Diagnoses: Palpitation Discharge ED - Sign-Out/Discharge Documenting (check all that apply): Patient Departure - Discharge Plan Condition: Stable Disposition: HOME Patient Education Materials: Heart Palpitations (ED) Referrals: Félix Marcus, HUMAN RESOURCES VICE PRESIDENT [Primary Care Provider] - 3 Days Additional Instructions: You were seen in the emergency department today due to palpitations. EKG was done as well as lab work which revealed no significant abnormalities. I'm uncertain what is causing your symptoms however it does not appear to be life- threatening. Please follow-up with your primary care provider in 3-5 days for further evaluation and management. Please return to this emergency Department immediately if you develop any new or worsening symptoms. - Billing Disposition and Condition Condition: STABLE Disposition: Home
[2019-07-09 06:55] LABS: ABS Basophils 0.1 10^3/ul (0-0.2); ABS Eosinophils 0.1 10^3/ul (0-0.6); ABS Lymphocytes 2.4 10^3/ul (1.0-4.8); ABS Monocytes 0.7 10^3/ul (0-0.8); ABS Neutrophils 3.9 10^3/ul (1.5-7.7); Eosinophil % 1.7 %; Hematocrit 41 % (42-52); Hemoglobin 14.2 g/dL (14.0-18.0); Lymphocyte % 33.9 %; Mean Corpuscular HGB Conc 34 g/dL (31-36); Mean Corpuscular Hemoglobin 30 pg (27-31); Mean Corpuscular Volume 88 fL (80-94); Mean Platelet Volume 6.7 fL (7.4-10.4); Platelet Count 184 10^3/uL (150-450); Red Blood Count 4.67 10^6 /uL (4.18-5.48); Red Cell Distribution Width 14 % (10-15); White Blood Count 7.2 10^3/uL (3.5-10.8)
[2019-07-09 07:11] LABS: ALT 31 U/L (7-52); Albumin 4.2 g/dL (3.2-5.2); Albumin/Globulin Ratio 1.7 (1-3); Alkaline Phosphatase 50 U/L (34-104); BUN/Creatinine Ratio 16.1 (8-20); Blood Urea Nitrogen 19 mg/dL (6-24); CO2 Carbon Dioxide 28 mmol/L (22-32); Calcium 9.8 mg/dL (8.6-10.3); Chloride 103 mmol/L (101-111); EGFR African American 75.9 (>60); EGFR Non-African American 62.8 (>60); Globulin 2.5 g/dL (2-4); Glucose 129 mg/dL (70-100); Sodium 139 mmol/L (135-145); Total Protein 6.7 g/dL (6.4-8.9)
[2019-07-09 07:16] LABS: Anion Gap 8 mmol/L (2-11)
[2019-07-09 08:10] LABS: Potassium Redraw 3.9 mmol/L (3.5-5.0)
[2019-07-09 08:33] VITALS: BP 140/69
== END 2019-07-09 08:32 | disposition home or self-care (01) ==
LOC: ED 05:52
DX: R00.2 Palpitations (principal); I10 Essential (primary) hypertension; E78.5 Hyperlipidemia, unspecified; F41.9 Anxiety disorder, unspecified; F32.9 Major depressive disorder, single episode, unspecified; E03.9 Hypothyroidism, unspecified; I48.91 Unspecified atrial fibrillation; E78.00 Pure hypercholesterolemia, unspecified; J45.909 Unspecified asthma, uncomplicated; K21.9 Gastro-esophageal reflux disease without esophagitis; Z87.891 Personal history of nicotine dependence; Z79.82 Long term (current) use of aspirin; Z79.890 Hormone replacement therapy; Z79.899 Other long term (current) drug therapy; Z88.0 Allergy status to penicillin; Z88.1 Allergy status to other antibiotic agents; Z88.5 Allergy status to narcotic agent; Z88.8 Allergy status to other drugs, medicaments and biological substances; Z91.041 Radiographic dye allergy status
CPT/HCPCS: 36415; 80053; 84484; 85025; 93005; 99282

== ENCOUNTER 2019-07-27 01:04 | Emergency (ER) | payer OTHER ==
--- NOTE | 2019-07-27 02:37 | ED ---
HPI Febrile Illness - HPI Summary HPI Summary: This pt is a 59 Y/O M presenting to [facility] with a CC of a fever that began on 07/24 and has been persistent since. He states that he also has had chills and a T max of 102.3 F. He also reports fatigue and weakness since the onset with sinus pressure and myalgia. He denies any sore throat, cough, SOB, N/V/D, and dysuria. He states that he has not been out of [place] in the last couple of weeks. 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 He has a PMHx of cardiomyopathy. He has no aggravating or alleviating factors. - History of Current Complaint Chief Complaint: EDGeneral Time Seen by Provider: 07/27/19 01:10 Hx Obtained From: Patient Onset/Duration: Started Days Ago - 3, Still Present Timing: Constant Temperature: 102.3 F Current Severity: None Pain Intensity: 0 Pain Scale Used: 0-10 Numeric Aggravating Factors: Nothing Alleviating Factors: Nothing Associated Signs and Symptoms: Negative - sore throat, cough, SOB, N/V/D, and dysuria, Chills, Myalgia - Additional Pertinent History Primary Care Physician: [id number] - Allergy/Home Medications Allergies/Adverse Reactions: Allergies Allergy/AdvReac Type Severity Reaction Status Date / Time hydromorphone Allergy Severe Altered Verified 07/27/19 01:20 Mental Status cephalexin Allergy Intermediate Hives Verified 07/27/19 01:20 erythromycin base Allergy Intermediate Hives Verified 07/27/19 01:20 Penicillins Allergy Intermediate Hives Verified 07/27/19 01:20 Tetracyclines Allergy Intermediate Hives Verified 07/27/19 01:20 cortisone Allergy CARDIOMYOPA Verified 07/27/19 01:20 THY epinephrine Allergy See Comment Verified 07/27/19 01:20 Iodinated Contrast Media Allergy See Comment Verified 07/27/19 01:20 [Iodinated Contrast- Oral and IV Dye] sumatriptan Allergy Unknown Verified 07/27/19 01:20 Reaction Details Home Medications: Home Medications Epleronone (NF) [Inspra (NF)] 50 mg PO DAILY 11/16/17 [History Confirmed ] Magnesium Oxide TAB* [MagOx 400 TAB*] 400 mg PO BID 11/16/17 [History Confirmed 07/27/19] amLODIPine TAB* [Norvasc 5 mg TAB*] 2.5 mg PO BID 11/16/17 [History Confirmed ] Acetaminophen [Acetaminophen Extra Strength] 500 mg PO BID 04/09/18 [History Confirmed 07/27/19] Aspirin [Aspir-Low] 81 mg PO DAILY 07/18/18 [History Confirmed 07/27/19] Vitamin B Complex [Super B-50 Complex] 1 each PO DAILY 07/18/18 [History Confirmed 07/27/19] Sertraline* [Zoloft*] 100 mg PO BID 09/22/18 [History Confirmed 07/27/19] Levothyroxine Sodium 225 mcg PO EVERY OTHER DAY 09/26/18 [History Confirmed 07/12] Metoprolol Succinate XL TAB* [Toprol XL TAB*] 12.5 mg PO DAILY #30 tab.xl [Rx Confirmed 07/27/19] Famotidine TAB* [Pepcid 20 MG TAB*] 20 mg PO DAILY 05/15/19 [History Confirmed 07/27/19] Cholecalciferol TAB* [Vitamin D TAB*] 2,000 units PO DAILY 07/09/19 [History Confirmed 07/27/19] Levothyroxine Sodium 200 mcg PO EVERY OTHER DAY 07/09/19 [History Confirmed 07/12] Diazepam TAB(NF) [Valium TAB(NF)] 1 mg PO BID PRN 07/27/19 [History Confirmed ] Nitrofurantoin Monohyd/M-Cryst [Macrobid 100 mg Capsule] 100 mg PO BID 5 Days # 10 cap 07/27/19 [Rx] PMH/Surg Hx/FS Hx/Imm Hx Previously Healthy: Yes Endocrine/Hematology History: Reports: Hx Thyroid Disease - h/o thyroid storm Denies: Hx Anticoagulant Therapy, Hx Diabetes, Other Endocrine/Hematological Disorders Cardiovascular History: Reports: Hx Atrial Fibrillation, Hx Hypercholesterolemia , Hx Hypertension, Other Cardiovascular Problems/Disorders - ATRIAL FIB 2000 2ndry to thyroid storm Denies: Hx Angina, Hx Coronary Artery Disease, Hx Myocardial Infarction, Hx Pacemaker/ICD, Hx Valvular Heart Disease Respiratory History: Reports: Hx Asthma - exercise induced, Hx Sleep Apnea - CPAP - no humidification (working on it)., Other Respiratory Problems/Disorders - PN X 2 WINTER 2011 Denies: Hx Chronic Obstructive Pulmonary Disease (COPD) GI History: Reports: Hx Gastroesophageal Reflux Disease, Hx Hiatal Hernia, Other GI Disorders - Hx gastritis Denies: Hx Ulcer History: Reports: Hx Kidney Stones Denies: Hx Renal Disease, Other Problems/Disorders Musculoskeletal History: Reports: Hx Arthritis - 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 , arthritis in neck, Other Musculoskeletal History - DJD Sensory History: Reports: Hx Contacts or Glasses Denies: Hx Hearing Aid, Other Sensory Impairments Opthamlomology History: Reports: Hx Contacts or Glasses Denies: Other Sensory Impairments Neurological History: Reports: Hx Headaches - "sinus headaches", Hx Migraine Denies: Hx Dementia, Hx Seizures, Other Neuro Impairments/Disorders Psychiatric History: Reports: Hx Anxiety, Hx Panic Disorder Denies: Hx Substance Abuse, Other Psychiatric Issues/Disorders - Cancer History Hx Chemotherapy: No Hx Radiation Therapy: No - Surgical History Surgical History: Yes Surgery Procedure, Year, and Place: [facility] - Immunization History Date of Tetanus Vaccine: utd Date of Influenza Vaccine: fall 2017 Immunizations Up to Date: Yes Infectious Disease History: No Infectious Disease History: Reports: Hx Clostridium Difficile, Hx Hepatitis - 1985, Hx Shingles Denies: Hx Human Immunodeficiency Virus (HIV), Hx Tuberculosis, Traveled Outside the [place] in Last 30 Days - Family History Known Family History: Positive: Hypertension - Social History Occupation: Employed Full-time Lives: With Family Alcohol Use: None Alcohol Amount: quit 1985 Hx Substance Use: Yes - none currently Substance Use Type: Reports: Marijuana Substance Use Comment - Amount & Last Used: quit 1985 Hx Tobacco Use: Yes - not currently Smoking Status (MU): Former Smoker Have You Smoked in the Last Year: No Review of Systems Positive: Fever - 102.3 F, Chills, Fatigue Negative: Sore Throat Negative: Shortness Of Breath, Cough Negative: Vomiting, Diarrhea, Nausea Negative: dysuria Positive: Myalgia All Other Systems Reviewed And Are Negative: Yes Physical Exam - Summary Physical Exam Summary: Constitutional: Well-developed, Well-nourished, Alert. (-) Distressed Skin: Warm, Dry HENT: Normocephalic; Atraumatic Eyes: Conjunctiva normal Neck: Musculoskeletal ROM normal neck. (-) JVD, (-) Stridor, (-) Tracheal deviation Cardio: Rhythm regular, rate normal, Heart sounds normal; Intact distal pulses; Radial pulses are 2+ and symmetric. (-) Murmur Pulmonary/Chest wall: Effort normal. 95% on room air. (-) Wheezes, (-) Rales Abd: Soft, (-) tenderness, (-) Distension, (-) Guarding, (-) Rebound Musculoskeletal: (-) Edema Lymph: (-) Cervical adenopathy Neuro: Alert, Oriented x3 Psych: Mood and affect Normal Triage Information Reviewed: Yes Vital Signs On Initial Exam: Initial Vitals Temp Pulse Resp BP Pulse Ox 100.1 F 77 22 143/76 94 07/27/19 01:16 07/27/19 01:16 07/27/19 01:16 07/27/19 01:16 07/27/19 01:16 Vital Signs Reviewed: Yes Procedures - Sedation Patient Received Moderate/Deep Sedation with Procedure: No Diagnostics - Vital Signs Vital Signs Temp Pulse Resp BP Pulse Ox 07/27/19 02:17 71 138/74 95 07/27/19 02:00 69 94 07/27/19 01:47 72 134/68 94 07/27/19 01:17 80 143/76 95 07/27/19 01:16 100.1 F 79 22 143/76 94 - Laboratory Lab Statement: Any lab studies that have been ordered have been reviewed, and results considered in the medical decision making process. - Radiology CXR Radiology Interpretation Completed By: ED Physician Summary of Radiographic Findings: No change from prior. Pending offical review. Re-Evaluation - Re-Evaluation First Eval Re-Evaluation Time: 03:48 Change: Unchanged Comment: Pt states that he has an allergy to Bactrim and suffers from a Hx of C.Diff. He will receive Macrobid instead even though it has a high rate of failure in his demographic. Course/Dx - Course Course Of Treatment: Patient is here with 3 days of fever, fatigue, body aches. Patient is overall well-appearing, afebrile here, and with a normal heart rate. Patient had a chest x-ray performed which showed no pneumonia. Patient had an influenza swab sent which was negative. Patient had a UA performed which showed possible UTI. Given patient's multiple drug allergies and history of severe c-diff, patient was started on Macrobid. Patient was also stressed tested for Covid 19 and given quarantine instructions - Diagnoses Provider Diagnoses: UTI (urinary tract infection), Suspected 2019 novel coronavirus infection Discharge ED - Sign-Out/Discharge Documenting (check all that apply): Patient Departure - discharge - Discharge Plan Condition: Good Disposition: HOME Prescriptions: Nitrofurantoin Monohyd/M-Cryst [Macrobid 100 mg Capsule] 100 mg PO BID 5 Days # 10 cap Patient Education Materials: Urinary Tract Infection in Older Adults (ED) Forms: COVID-19 Tested & Isolation Referrals: Félix Marcus, NETWORK OPERATIONS PROJECT MANAGER [Primary Care Provider] - 2 Days Additional Instructions: PLEASE FOLLOW UP WITH YOUR PRIMARY CARE PROVIDER IN THE NEXT 1-3 DAYS. RETURN TO THE EMERGENCY DEPARTMENT FOR ANY NEW OR WORSENING SYMPTOMS. You were seen in the emergency department for coronavirus rule out. The department of health will contact you within 24 hours. Due to the pandemic, you should stay in your house and self quarantine. See the separate quarantine paper for further instructions. You should wear a mask if you're outside of your personal room. We encourage handwashing as well as limited contact with other people including the elderly and the immunocompromised. If any studies were not completed at the time of discharge you will be called with the relevant results. Return to emergency department for severe trouble breathing, flank pain, increased chest pressure. It was a pleasure taking care of you today. Please take the medications prescribed to you as directed and for the indicated time frame. - Billing Disposition and Condition Condition: GOOD Disposition: Home - Attestation Statements Document Initiated by Noah: Yes Documenting Scribe: Chris Durbin Provider For Whom Noah is Documenting (Include Credential): Abhi Ochoa MD Scribe Attestation: Chris Couch scribed for Abhi Ochoa MD on 07/27/19 at 0410. Scribe Documentation Reviewed: Yes Provider Attestation: The documentation as recorded by the Chris hobbs accurately reflects the service I personally performed and the decisions made by me, Abhi Ochoa MD Status of Scribe Document: Viewed
[2019-07-27 03:12] LABS: Influenza A Molecular Negative (Negative); Influenza B Molecular Negative (Negative)
[2019-07-27 03:24] LABS: Urine Appearance Cloudy; Urine Bilirubin Negative (Negative); Urine Blood 2+ (Negative); Urine Color Yellow; Urine Glucose Negative (Negative); Urine Ketones Negative (Negative); Urine Nitrite Positive (Negative); Urine Protein Negative (Negative); Urine Specific Gravity 1.016 (1.010-1.030); Urine Urobilinogen Negative (Negative)
[2019-07-27] MEDS ORDERED: Sulfamethox/Trimethoprim DS 800/160* TAB PO ONE (03:38)
[2019-07-27] MEDS ORDERED: Nitrofurantoin Macrocrystals* 100 MG CAP PO ONE (03:46)
[2019-07-27 03:50] LABS: Urine Bacteria 3+ (Absent); Urine Red Blood Cell 2+(6-10/hpf) (Absent); Urine White Blood Cell 3+(>20/hpf) (Absent)
[2019-07-27 04:48] VITALS: BP 125/61
--- NOTE | 2019-07-29 05:30 | ED ---
Imaging and Labs Follow Up Follow Up Type: Labs/Cultures Labs/Culture Result: Urine culture preliminary returned showing greater than 100,000 Escherichia coli. Patient Communication/Plan: Patient was treated with nitrofurantoin for UTI. Awaiting sensitivity reports. Provider Diagnoses: UTI (urinary tract infection), Suspected 2019 novel coronavirus infection
== END 2019-07-27 04:35 | disposition home or self-care (01) ==
LOC: ED 01:04
DX: N39.0 Urinary tract infection, site not specified (principal); R50.9 Fever, unspecified; E03.9 Hypothyroidism, unspecified; E78.00 Pure hypercholesterolemia, unspecified; I10 Essential (primary) hypertension; F41.9 Anxiety disorder, unspecified; K21.9 Gastro-esophageal reflux disease without esophagitis; Z88.0 Allergy status to penicillin; Z79.82 Long term (current) use of aspirin; Z79.890 Hormone replacement therapy; Z79.899 Other long term (current) drug therapy; Z87.442 Personal history of urinary calculi; Z87.891 Personal history of nicotine dependence; Z20.828 Contact with and (suspected) exposure to other viral communicable diseases
CPT/HCPCS: 71045; 81003; 81015; 87077; 87086; 87186; 87635; 99283; A9270-GY

== ENCOUNTER 2023-12-19 17:42 | Observation (INO) ==
[2023-12-19 18:23] LABS: ABS Basophils 0.1 10^3/uL (0.0-0.1); ABS Eosinophils 0.2 10^3/uL (0.0-0.5); ABS Lymphocytes 2.4 10^3/uL (1.0-4.8); ABS Monocytes 0.7 10^3/uL (0.0-1.1); ABS Neutrophils 3.8 10^3/uL (1.5-7.6); Eosinophil % 2.7 %; Hematocrit 44.4 % (38-53); Mean Corpuscular Hemoglobin 30.1 pg (27-33); Mean Corpuscular Hgb Conc 33.8 g/dL (31-36); Mean Platelet Volume 6.6 fL (7.5-11.2); Platelet Count 198 10^3/uL (150-450); Red Blood Count 4.98 10^6/uL (4.06-5.63); Red Cell Distribution Width 14.3 % (12-17); White Blood Count 7.2 10^3/uL (3.6-10.2)
[2023-12-19 18:33] LABS: INR 1.06 (0.85-1.14)
[2023-12-19 18:50] LABS: Creatinine, Serum 1.08 mg/dL (0.67-1.17); Potassium 4.2 mmol/L (3.5-5.0)
[2023-12-19 18:51] LABS: Albumin 4.4 g/dL (3.2-5.2); Albumin/Globulin Ratio 1.8 (1-3); Calcium 9.1 mg/dL (8.6-10.3); Direct Bilirubin 0.1 mg/dL (0.03-0.18); Globulin 2.5 g/dL (2-4); HDL Cholesterol 39.3 mg/dL; Indirect Bilirubin 0.7 mg/dL (0.3-1.0); Total Bilirubin 0.8 mg/dL (0.2-1.0); Total Protein 6.9 g/dL (6.4-8.9); eGFR CKD-EPI 76.2 (>60)
[2023-12-19] MEDS: Acetaminophen IV 1 GM/100ML 1,000 MG/100 ML BAG IV ONE (18:56)
[2023-12-19] MEDS: diazePAM INJ CARPUJECT 5 MG/ML SYRINGE IV ONE (18:56)
[2023-12-19] MEDS: Metoclopramide 5 MG/ML VIAL (10 mg) IV SLOW PU ONE (18:57)
[2023-12-19 19:47] LABS: High Sensitivity Troponin 1 Hr 9 pg/mL (<20)
[2023-12-19] MEDS ORDERED: Sucralfate 1 gm SUSP 1 GM/10 ML UDC PO PRN (20:44)
[2023-12-19 22:22] LABS: TSH Ultra Thyroid Stim Horm 5.48 mcIU/mL (0.34-5.60)
[2023-12-20 06:29] LABS: Hematocrit 42.5 % (38-53); Hemoglobin 14.1 g/dL (13.2-16.3); Mean Corpuscular Hemoglobin 29.6 pg (27-33); Mean Corpuscular Hgb Conc 33.2 g/dL (31-36); Mean Corpuscular Volume 89.2 fL (80-97); Mean Platelet Volume 6.6 fL (7.5-11.2); Platelet Count 181 10^3/uL (150-450); Red Blood Count 4.76 10^6/uL (4.06-5.63); Red Cell Distribution Width 14.2 % (12-17); White Blood Count 5.5 10^3/uL (3.6-10.2)
[2023-12-20 06:44] LABS: Calcium 9.4 mg/dL (8.6-10.3); Creatinine, Serum 0.92 mg/dL (0.67-1.17); Magnesium 1.8 mg/dL (1.9-2.7); eGFR CKD-EPI 92.3 (>60)
[2023-12-20] MEDS: Enoxaparin 40 MG/0.4 ML SYR SUBCUT SCH (08:06)
[2023-12-20] MEDS ORDERED: Lorazepam PYXIS KEY PRN (20:45)
[2023-12-20] MEDS: LORazepam 2 mg VIAL 1 ml IV PUSH ONE (21:00)
[2023-12-21 09:44] VITALS: BP 135/61
== END 2023-12-21 11:45 | disposition home or self-care (01) ==
LOC: ED 17:42 → EDHOLD 19:16 → INTOOBSV 20:36 → SUATTDRO 20:36 → MEDTELE 22:42
PROVIDERS: ADMIT Internal Medicine; ATTEND Internal Medicine